=== PATIENT | female | born 1930 | race Caucasian/White ===

== ENCOUNTER 2017-05-22 05:33 | Emergency (ER) | payer OTHER, MEDICARE ==
[2017-05-22 05:58] LABS: Absolute Lymphocytes (CBC) 3.5 K/uL (0.7-4.9); Absolute Monocytes 0.7 K/uL (0.1-1.3); Absolute Neutrophil 5.4 K/uL (1.8-8.0); Basophils % 0.4 % (0-1.3); Eosinophils % 1.9 % (0-4.4); Lymphocytes % 35.6 % (15.3-44.8); MCH 29.1 pg (27.0-35.0); MPV 8.1 fL (7.6-11.3); Monocytes % 7.4 % (3.3-12.3); RBC Red Blood Cell Count 4.07 M/uL (3.86-4.86)
[2017-05-22 06:02] LABS: Protime INR 0.92
[2017-05-22] MEDS ORDERED: IPRATROPIUM BROM 0.5MG/2.5ML ONE (06:06)
[2017-05-22] MEDS ORDERED: predniSONE 20 MG TAB ONE (06:06)
[2017-05-22] MEDS ORDERED: ALBUTEROL 2.5 MG/3 ML NEB SOL ONE (06:06)
[2017-05-22 06:07] LABS: Bicarbonate 33 mEq/L (21-31); Glucose Level 222 mg/dL (65-120); Potassium 4.2 mEq/L (3.6-5.0); Sodium Level 139 mEq/L (135-145)
[2017-05-22 06:13] LABS: ALT/SGPT 15 IU/L (10-60); AST/SGOT 25 IU/L (10-42); Albumin 3.6 g/dL (3.2-5.5); Alkaline Phosphatase 32 IU/L (42-121); BUN Blood Urea Nitrogen 24 mg/dL (6-20); Bilirubin Direct < 0.1 mg/dL (0-0.2); Bilirubin Total 0.4 mg/dL (0.3-1.2); Creatine Phosphokinase 53 IU/L (22-269); Protein, Total 6.3 g/dL (6.0-8.3)
[2017-05-22 06:16] LABS: CKMB Creatine Kinase MB 4.4 ng/ml (0.3-4.0)
--- NOTE | 2017-05-22 06:37 | ER ---
Nurse's Notes [facility] Name: Jeannie Whitlock Age: 87 yrs Sex: Female : 1930 Arrival Date: 05/22/2017 Time: 05:36 Bed 6 Private MD: Diagnosis: Chronic obstructive pulmonary disease with (acute) exacerbation Presentation: 05/22 05:39 Presenting complaint: Patient states: I woke up feeling hot and nauseous and am having tl2 a hard time breathing. Pt is unable to speak in full sentences. Denies pain. Transition of care: patient was not received from another setting of care. Onset of symptoms was May 22, 2017 at 05:00. Care prior to arrival: None. 05:39 Method Of Arrival: EMS: [facility] tl2 05:39 Acuity: IRENE 3 tl2 Triage Assessment: 05:41 General: Appears in no apparent distress. uncomfortable, Behavior is calm, cooperative, tl2 appropriate for age, Reports feeling ill for. Pain: Denies pain. Neuro: Level of Consciousness is awake, alert, obeys commands, Oriented to person, place, time, situation. Cardiovascular: Denies chest pain. Respiratory: Reports shortness of breath labored breathing Breath sounds with wheezes bilaterally. Onset: The symptoms/episode began/occurred this morning, the patient has moderate shortness of breath. GI: Reports nausea. : Reports taking Bactrim for UTI. Derm: Skin is pink, warm \T\ dry. Historical: - Allergies: 05:41 Codeine; tl2 05:41 CT Dye; tl2 05:41 Demerol; tl2 05:41 Iodine; tl2 05:41 Morphine; tl2 05:41 PENICILLINS; tl2 05:41 Tape; tl2 - Home Meds: 05:41 CoQ-10 100mg Oral [Active]; cranberry+C 4200mg BID [Active]; furosemide 40 mg Oral tab tl2 once daily [Active]; Humalog Mix 75-25 Sub-Q [Active]; krill oil 1000mg Oral [Active]; Ocuvite Oral [Active]; potassium chloride 10 mEq Oral cpER 1 cap once daily [Active]; prednisone 5 mg Oral tab once daily [Active]; Pro Air [Active]; Probiotic 10 billion cell Oral cap [Active]; sertraline 50 mg Oral tab 1 tab once daily [Active]; Spiriva [Active]; - PMHx: 05:41 Cancer, Lung; CHF; Diabetes - IDDM; High Cholesterol; Hypertension; tl2 - Immunization history:: Adult Immunizations up to date. - Social history:: Smoking status: Patient/guardian denies using tobacco. - Family history:: not pertinent. Screenin:43 Abuse screen: Denies threats or abuse. Nutritional screening: No deficits noted. tl2 Tuberculosis screening: No symptoms or risk factors identified. Fall Risk Secondary diagnosis (15 points). Assessment: 05:44 General: see triage assessment. tl2 05:44 Respiratory: Airway is patent Respiratory effort is even, labored, Respiratory pattern tl2 is tachypnea Breath sounds with wheezes bilaterally. the patient has moderate shortness of breath. 06:25 Reassessment: Patient appears in no apparent distress at this time. Patient and/or tl2 family updated on plan of care and expected duration. Pain level reassessed. Patient is alert, oriented x 3, equal unlabored respirations, skin warm/dry/pink. Pt states her breathing has improved. Awaiting lab results Patient states feeling better. 06:26 Cardiovascular: Rhythm is regular. tl2 07:54 Reassessment: Pt discharged home with daughter. ph Vital Signs: 05:41 BP 131 / 61; Pulse 92; Resp 24; Temp 98.6(O); Pulse Ox 96% on 3 lpm NC; Weight 70.76 tl2 kg; Height 5 ft. 4 in. (162.56 cm); Pain 0/10; 06:25 BP 152 / 69; Pulse 89; Resp 22; Pulse Ox 100% on 3 lpm NC; tl2 06:50 BP 118 / 40; Pulse 100; Resp 20; Pulse Ox 98% on 3 lpm NC; tl2 07:55 BP 124 / 58; Pulse 87; Resp 18; Temp 97.9; Pulse Ox 98% on 3 lpm NC; ph 05:41 Body Mass Index 26.78 (70.76 kg, 162.56 cm) tl2 ED Course: 05:36 Patient arrived in ED. em1 05:39 Cristy Field MD is Attending Physician. ma2 05:41 Triage completed. tl2 05:41 Arm band placed on right wrist. tl2 05:43 Patient has correct armband on for positive identification. Placed in gown. Bed in low tl2 position. Call light in reach. Side rails up X2. 05:48 Adolfo Israel, RN is Primary Nurse. ao 05:52 Inserted saline lock: 22 gauge in left forearm, using aseptic technique. Blood tl2 collected. placed by HIREN Higginbotham. 05:58 X-ray completed. Portable x-ray completed in exam room. Patient tolerated procedure jw2 well. 05:59 XRAY Chest (1 view) In Process Unspecified. EDMS 06:54 No provider procedures requiring assistance completed. tl2 07:54 IV discontinued, intact, bleeding controlled, No redness/swelling at site. Pressure ph dressing applied. Administered Medications: 05:51 Not Given (Patient Refused; Pt stated she only wants 20 mg): predniSONE 40 mg PO once tl2 05:51 Drug: DuoNeb (3:1) (2.5 mg - 0.5 mg) 3 ml Route: Nebulizer; tl2 06:54 Follow up: Response: No adverse reaction; Marked relief of symptoms tl2 06:25 Drug: predniSONE 20 mg Route: PO; tl2 06:54 Follow up: Response: No adverse reaction tl2 Point of Care Testing: Blood Glucose: 05:48 Blood Glucose: 226 mg/dL; ao Ranges: Outcome: 06:37 Discharge ordered by . ma2 06:54 Discharged to home with family. tl2 06:54 Condition: stable 06:54 Discharge instructions given to patient, Instructed on discharge instructions, follow up and referral plans. medication usage, Demonstrated understanding of instructions, follow-up care, medications, Prescriptions given X 2. 07:56 Patient left the ED. ph Signatures: Dispatcher [employer] Shant Keen em1 Martita Mcnally, HIREN RN ph Adolfo Israel, Tessa Lara RN jw2 Kimberly Blackwell RN RN tl2 Cristy Field MD MD ma2
--- NOTE | 2017-05-22 06:38 | EDPHYS ---
Physician Documentation [facility] Name: Jeannie Whitlock Age: 87 yrs Sex: Female : 1930 Arrival Date: 05/22/2017 Time: 05:36 Bed 6 Private MD: ED Physician Cristy Field HPI: 05/22 05:42 This 87 yrs old Female presents to ER via EMS with complaints of Breathing ma2 Difficulty. 05:42 The patient has shortness of breath that woke him/her from sleep. Onset: The ma2 symptoms/episode began/occurred gradually, 1 hour(s) ago. Duration: The symptoms are intermittent. Associated signs and symptoms: Pertinent positives: nausea, Pertinent negatives: chest pain, non-productive cough, diaphoresis, dizziness, fever, hemoptysis, loss of consciousness, numbness in extremities, visual changes, vomiting. Severity of symptoms: At their worst the symptoms were mild. The patient has experienced similar episodes in the past. hx of CHF ln lasix and COPD here with SOB x 1 hour she has no other symptom . Historical: - Allergies: 05:41 Codeine; tl2 05:41 CT Dye; tl2 05:41 Demerol; tl2 05:41 Iodine; tl2 05:41 Morphine; tl2 05:41 PENICILLINS; tl2 05:41 Tape; tl2 - Home Meds: 05:41 CoQ-10 100mg Oral [Active]; cranberry+C 4200mg BID [Active]; furosemide 40 mg Oral tab tl2 once daily [Active]; Humalog Mix 75-25 Sub-Q [Active]; krill oil 1000mg Oral [Active]; Ocuvite Oral [Active]; potassium chloride 10 mEq Oral cpER 1 cap once daily [Active]; prednisone 5 mg Oral tab once daily [Active]; Pro Air [Active]; Probiotic 10 billion cell Oral cap [Active]; sertraline 50 mg Oral tab 1 tab once daily [Active]; Spiriva [Active]; - PMHx: 05:41 Cancer, Lung; CHF; Diabetes - IDDM; High Cholesterol; Hypertension; tl2 - Immunization history:: Adult Immunizations up to date. - Social history:: Smoking status: Patient/guardian denies using tobacco. - Family history:: not pertinent. ROS: 05:42 Constitutional: Negative for fever, chills, and weight loss, Eyes: Negative for injury, ma2 pain, redness, and discharge, ENT: Negative for injury, pain, and discharge, Neck: Negative for injury, pain, and swelling, Cardiovascular: Negative for chest pain, palpitations, and edema, Abdomen/GI: Negative for abdominal pain, nausea, diarrhea, and constipation, Back: Negative for injury and pain, : Negative for injury, bleeding, discharge, and swelling, MS/Extremity: Negative for injury and deformity, Skin: Negative for injury, rash, and discoloration, Neuro: Negative for headache, weakness, numbness, tingling, and seizure, Psych: Negative for depression, anxiety, suicide ideation, homicidal ideation, and hallucinations, Allergy/Immunology: Negative for hives, rash, and allergies, Endocrine: Negative for neck swelling, polydipsia, polyuria, polyphagia, and marked weight changes, Hematologic/Lymphatic: Negative for swollen nodes, abnormal bleeding, and unusual bruising. 05:42 Respiratory: Positive for wheezing, Negative for cough, orthopnea, pleurisy, shortness of breath, sputum production. Exam: 05:42 Constitutional: This is a well developed, well nourished patient who is awake, alert, ma2 and in no acute distress. Head/Face: Normocephalic, atraumatic. Eyes: Pupils equal round and reactive to light, extra-ocular motions intact. Lids and lashes normal. Conjunctiva and sclera are non-icteric and not injected. Cornea within normal limits. Periorbital areas with no swelling, redness, or edema. ENT: Nares patent. No nasal discharge, no septal abnormalities noted. Tympanic membranes are normal and external auditory canals are clear. Oropharynx with no redness, swelling, or masses, exudates, or evidence of obstruction, uvula midline. Mucous membranes moist. Neck: Trachea midline, no thyromegaly or masses palpated, and no cervical lymphadenopathy. Supple, full range of motion without nuchal rigidity, or vertebral point tenderness. No Meningismus. Chest/axilla: Normal chest wall appearance and motion. Nontender with no deformity. No lesions are appreciated. Cardiovascular: Regular rate and rhythm with a normal S1 and S2. No gallops, murmurs, or rubs. Normal PMI, no JVD. No pulse deficits. Abdomen/GI: Soft, non-tender, with normal bowel sounds. No distension or tympany. No guarding or rebound. No evidence of tenderness throughout. Back: No spinal tenderness. No costovertebral tenderness. Full range of motion. Skin: Warm, dry with normal turgor. Normal color with no rashes, no lesions, and no evidence of cellulitis. MS/ Extremity: Pulses equal, no cyanosis. Neurovascular intact. Full, normal range of motion. Neuro: Awake and alert, GCS 15, oriented to person, place, time, and situation. Cranial nerves II-XII grossly intact. Motor strength 5/5 in all extremities. Sensory grossly intact. Cerebellar exam normal. Normal gait. 05:42 Respiratory: Exam negative for the patient does not display signs of respiratory distress, Respirations: normal, Breath sounds: wheezing: expiratory that is mild, is heard diffusely. Vital Signs: 05:41 BP 131 / 61; Pulse 92; Resp 24; Temp 98.6(O); Pulse Ox 96% on 3 lpm NC; Weight 70.76 tl2 kg; Height 5 ft. 4 in. (162.56 cm); Pain 0/10; 06:25 BP 152 / 69; Pulse 89; Resp 22; Pulse Ox 100% on 3 lpm NC; tl2 06:50 BP 118 / 40; Pulse 100; Resp 20; Pulse Ox 98% on 3 lpm NC; tl2 07:55 BP 124 / 58; Pulse 87; Resp 18; Temp 97.9; Pulse Ox 98% on 3 lpm NC; ph 05:41 Body Mass Index 26.78 (70.76 kg, 162.56 cm) tl2 MDM: 05:39 Patient medically screened. ma2 05:42 Differential diagnosis: Anxiety Reaction asthma, Bronchitis CHF exacerbation, Chronic ma2 Obstructive Pulmonary Disease pneumonia, reactive airway disease. Antibiotic administration: Not indicated. The patient's Wells Deep Vein Thrombosis Score was calculated as follows: No Risks (0 Pts). The patient's pulmonary embolism risk score was calculated as follows: No Risks (0 Pts). 06:34 Data reviewed: vital signs, nurses notes, EMS record, care home records, lab test ma2 result(s), EKG, radiologic studies. Data interpreted: barrel drum cutter:. Test interpretation: by ED physician or midlevel provider: ECG, plain radiologic studies. Counseling: I had a detailed discussion with the patient and/or guardian regarding: the historical points, exam findings, and any diagnostic results supporting the discharge/admit diagnosis, the presence of at least one elevated blood pressure reading (>120/80) during this emergency department visit, the need for outpatient follow up. ED course: given dual nebs, prednison, her lab are non critical and EKG unchanged . 05/22 05:40 Order name: Basic Metabolic Panel; Complete Time: 06:20 ma2 05/22 05:40 Order name: BNP ma2 05/22 05:40 Order name: CBC with Diff; Complete Time: 06:20 ma2 05/22 05:40 Order name: Ckmb; Complete Time: 06:20 ma2 05/22 05:40 Order name: CPK; Complete Time: 06:20 ma2 05/22 05:40 Order name: LFT's; Complete Time: 06:20 ma2 05/22 05:40 Order name: Magnesium; Complete Time: 06:20 ma2 05/22 05:40 Order name: PT-INR; Complete Time: 06:20 ma2 05/22 05:40 Order name: Ptt, Activated; Complete Time: 06:20 ma2 05/22 05:40 Order name: Troponin (emerg Dept Use Only); Complete Time: 06:20 ma2 05/22 05:40 Order name: XRAY Chest (1 view) 2 05/22 05:40 Order name: EKG; Complete Time: 05:40 ma2 05/22 05:40 Order name: Cardiac monitoring; Complete Time: 05:45 ma2 05/22 05:40 Order name: EKG - Nurse/Tech; Complete Time: 05:52 ma2 05/22 05:40 Order name: IV Saline Lock; Complete Time: 05:52 ma2 05/22 05:40 Order name: Labs collected and sent; Complete Time: 05:52 ma2 05/22 05:40 Order name: O2 Per Protocol; Complete Time: 05:45 ma2 05/22 05:40 Order name: O2 Sat Monitoring; Complete Time: 05:45 ma2 05/22 05:41 Order name: O2: 3 L via NC; Complete Time: 05:45 ma2 Administered Medications: 05:51 Not Given (Patient Refused; Pt stated she only wants 20 mg): predniSONE 40 mg PO once tl2 05:51 Drug: DuoNeb (3:1) (2.5 mg - 0.5 mg) 3 ml Route: Nebulizer; tl2 06:54 Follow up: Response: No adverse reaction; Marked relief of symptoms tl2 06:25 Drug: predniSONE 20 mg Route: PO; tl2 06:54 Follow up: Response: No adverse reaction tl2 Point of Care Testing: Blood Glucose: 05:48 Blood Glucose: 226 mg/dL; ao Ranges: Critical Glucose Levels:Adult <50 mg/dl or >400 mg/dl <40 mg/dl or >180 mg/dl Disposition: 05/22/17 06:37 Discharged to Home. Impression: Chronic obstructive pulmonary disease with (acute) exacerbation. - Condition is Stable. - Discharge Instructions: Chronic Obstructive Pulmonary Disease. - Prescriptions for Zithromax Z- Vick 250 mg Oral Tablet - take 1 tablet by ORAL route as directed for 5 days Day 1 - take two (2) tablets one time. Day 2, 3, 4 , 5 take one (1) tablet once daily.; 6 tablet. Medrol (Vick) 4 mg Oral Tablets, Dose Pack - take 1 tablet by ORAL route as directed - follow package instructions; 1 packet. - Medication Reconciliation Form, Thank You Letter, Antibiotic Education, Prescription Opioid Use form. - Follow up: Private Physician; When: 2 - 3 days; Reason: Continuance of care. - Problem is chronic. - Symptoms have improved. Signatures: Dispatcher [employer] Martita Lopez RN RN Kimberly Blackwell RN RN tl2 Cristy Field MD MD de2
[2017-05-22 08:16] VITALS: BP 124/58; TEMP 97.9; O2SAT 98
--- NOTE | 2017-05-22 08:39 | RAD REPORT ---
EXAM DESCRIPTION: Hector Single View05/22/2017 5:59 am CLINICAL HISTORY: Chest pain COMPARISON: none FINDINGS: A 21 millimeter medial right upper lobe opacities without obvious change from the prior ex am. The remainder of the lungs appear clear of acute infiltrate. The heart is normal size. Postsurgical changes involve the chest. Pacemaker leads are in place IMPRESSION: A 21 millimeter medial right upper lobe opacity without obvious change from the prior e xam. Continued serial chest x-rays is recommended to assess stability
--- NOTE | 2017-05-22 10:20 | EKG ---
Test Date: 2017-05-22 Test Time: 05:45:54 Regulated Program Manager: MARY MEASUREMENT RESULTS: Intervals: Rate: 83 MS: 160 QRSD: 138 QT: 418 QTc: 491 [place]: P: 60 MS: 160 QRS: 12 T: 195 INTERPRETIVE STATEMENTS: Sinus rhythm with premature atrial complexes and intermittent atrial pacing Left bundle branch block Abnormal ECG Compared to ECG 07/03/2016 10:25:53 Atrial premature complex(es) now present Atrial pacing is now present Electronically Signed On 05-22-17 10:19:47 CDT by Franklin Nascimento
== END 2017-05-22 07:56 | disposition home or self-care (01) ==
LOC: ER 05:33
DX: J44.1 Chronic obstructive pulmonary disease with (acute) exacerbation (principal); I10 Essential (primary) hypertension; E11.9 Type 2 diabetes mellitus without complications; I50.9 Heart failure, unspecified; E78.00 Pure hypercholesterolemia, unspecified; Z85.118 Personal history of other malignant neoplasm of bronchus and lung; Z79.4 Long term (current) use of insulin; Z88.0 Allergy status to penicillin; Z88.5 Allergy status to narcotic agent; Z88.8 Allergy status to other drugs, medicaments and biological substances; Z91.041 Radiographic dye allergy status; Z91.048 Other nonmedicinal substance allergy status
CPT/HCPCS: 36415; 71045; 80048; 80076; 82550; 82553; 82962; 83735; 83880; 84484; 85025; 85610; 85730; 93005; 94640; 99284; J7512

== ENCOUNTER 2017-09-14 22:05 | Emergency (ER) | payer OTHER, MEDICARE ==
[2017-09-14 23:36] LABS: Absolute Lymphocytes (CBC) 2.1 K/uL (0.7-4.9); Absolute Monocytes 0.8 K/uL (0.1-1.3); Absolute Neutrophil 5.4 K/uL (1.8-8.0); Eosinophils % 2.2 % (0-4.4); Hematocrit 36.4 % (36.0-45.0); Lymphocytes % 24.2 % (15.3-44.8); MCH 30.3 pg (27.0-35.0); MCV 91.5 fL (80-100); MPV 8.1 fL (7.6-11.3); Monocytes % 9.4 % (3.3-12.3); RBC Red Blood Cell Count 3.98 M/uL (3.86-4.86)
[2017-09-14 23:37] LABS: Protime INR 1.02
[2017-09-14] MEDS ORDERED: METHYLPREDNISOLONE 125 MG INJ ONE (23:42)
[2017-09-14] MEDS ORDERED: DIPHENHYDRAMINE 50 MG/ML VIAL ONE (23:43)
[2017-09-14 23:55] LABS: Albumin 3.3 g/dL (3.4-5.0); Bilirubin Total 0.4 mg/dL (0.2-1.0); Magnesium 2.2 mg/dL (1.8-2.4); Potassium 4.2 mmol/L (3.5-5.1); Protein, Total 6.4 g/dL (6.4-8.2)
[2017-09-15] MEDS ORDERED: ONDANSETRON 4 MG/2 ML VIAL ONE (00:54)
[2017-09-15] MEDS ORDERED: LABETALOL HCL 100 MG/20 ML ONE (01:52)
[2017-09-15] MEDS ORDERED: LABETALOL 20 MG/4ML SYRINGE IV ONE (01:53)
--- NOTE | 2017-09-15 01:53 | EDPHYS ---
Physician Documentation [facility] Name: Jeannie Whitlock Age: 87 yrs Sex: Female : 1930 Arrival Date: 09/14/2017 Time: 22:11 Bed 15 Private MD: ED Physician Cong Torres HPI: 09/14 23:11 This 87 yrs old Female presents to ER via Wheelchair with complaints of ps1 Breathing Difficulty, Rectal Bleeding, Cough. 23:11 patient has history of COPD with recent productive cough, patient of Dr. Myers. ps1 Recently started on theophylline for symptoms. Additionally complaining of urinary symptoms and left flank pain and BRBPR. She has seen Dr. Alvarado before in the past however she cannot have a colonoscopy 2/2 her underlying medical conditions. Pain rated as moderate and intermittent. Multiple allergies. She states that she has an allergy to iodine but she has had CT scans and an angiography before in the past without issue. . Historical: - Allergies: 22:38 Codeine; bb 22:38 CT Dye; bb 22:38 Demerol; bb 22:38 Iodine; bb 22:38 Morphine; bb 22:38 PENICILLINS; bb 22:38 Tape; bb - Home Meds: 22:38 ipratropium bromide 0.02 % inhalation soln 1.25 mL 4 times per day [Active]; alprazolam bb 0.25 mg Oral tab 1 tab twice a day [Active]; theophylline 200 mg Oral Tb12 1 tab daily [Active]; Brovana 15 mcg/2 mL inhalation nebu daily [Active]; furosemide 20 mg Oral tab 1 tab once daily [Active]; Probiotic oral oral [Active]; CoQ-10 100 mg oral cap daily [Active]; bisoprolol fumarate 5 mg oral tab 1 tab once daily [Active]; sertraline 50 mg oral tab [Active]; Humalog Mix 75-25 100 unit/mL (75-25) Sub-Q susp [Active]; krill oil oral 1000 mg daily oral [Active]; cranberry oral 200 mg daily oral [Active]; ProAir HFA 90 mcg/actuation inhalation HFAA 2 puffs every 6 hours [Active]; Spiriva with HandiHaler 18 mcg inhalation CpDv 1 cap once daily [Active]; prednisone 10 mg Oral tab once daily [Active]; ovuvite [Active]; vit B12 100 mcg daily [Active]; Nasacort 55 mcg Nasal spra 2 spray daily [Active]; - PMHx: 22:38 Cancer, Lung; CHF; Diabetes - IDDM; High Cholesterol; Hypertension; bb - Immunization history:: Adult Immunizations up to date. - Social history:: Smoking status: Patient/guardian denies using tobacco, but has a distant history of tobacco abuse. - Ebola Screening: : No symptoms or risks identified at this time. ROS: 23:11 Constitutional: Negative for fever, chills, and weight loss, Eyes: Negative for injury, ps1 pain, redness, and discharge, Cardiovascular: Negative for chest pain, palpitations, and edema, Respiratory: Negative for shortness of breath, cough, wheezing, and pleuritic chest pain. 23:11 Abdomen/GI: Positive for abdominal pain, rectal bleeding. 23:11 : Positive for urinary symptoms. ps1 Exam: 23:11 Constitutional: This is a well developed, well nourished patient who is awake, alert, ps1 and in no acute distress. Head/Face: Normocephalic, atraumatic. Eyes: Pupils equal round and reactive to light, extra-ocular motions intact. Lids and lashes normal. Conjunctiva and sclera are non-icteric and not injected. ENT: Nares patent. No nasal discharge, no septal abnormalities noted. Tympanic membranes are normal and external auditory canals are clear. Oropharynx with no redness, swelling, or masses, exudates, or evidence of obstruction, uvula midline. Mucous membranes moist. Cardiovascular: Regular rate and rhythm. No gallops, murmurs, or rubs. Normal PMI, no JVD. No pulse deficits. Abdomen/GI: Soft, non-tender, with normal bowel sounds. No distension or tympany. No guarding or rebound. No evidence of tenderness throughout. Skin: Warm, dry with normal turgor. Normal color with no rashes, no lesions, and no evidence of cellulitis. MS/ Extremity: Pulses equal, no cyanosis. Neurovascular intact. Full, normal range of motion. Neuro: Awake and alert, GCS 15, oriented to person, place, time, and situation. Cranial nerves II-XII grossly intact. Sensory grossly intact. Psych: Awake, alert, with orientation to person, place and time. Behavior, mood, and affect are within normal limits. 23:11 Respiratory: the patient does not display signs of respiratory distress, Respirations: normal, Breath sounds: are clear throughout. 23:11 : Bladder: tenderness. Vital Signs: 22:38 BP 136 / 87; Pulse 98; Resp 36 S; Pulse Ox 89% on 3 lpm NC; Weight 73.03 kg (R); Height bb 5 ft. 4 in. (162.56 cm) (R); Pain 7/10; 22:45 BP 141 / 59; Pulse 74; Resp 16; Pulse Ox 100% ; bp 23:44 BP 170 / 84; Pulse 82; Resp 16; Pulse Ox 99% ; bp 09/15 00:55 BP 176 / 82; Pulse 76; Resp 14; Pulse Ox 100% ; bp 01:58 BP 147 / 75; Pulse 77; Resp 14; Pulse Ox 99% ; bp 02:15 BP 141 / 60; Pulse 78; Resp 22; Pulse Ox 97% ; bp 09/14 22:38 Body Mass Index 27.64 (73.03 kg, 162.56 cm) bb MDM: 09/14 23:17 Patient medically screened. 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 Started labetolol for BP control. Goal 120 systolic. . 09/14 23:06 Order name: CBC with Diff; Complete Time: 23:44 ps1 09/14 23:06 Order name: Magnesium; Complete Time: 23:59 ps1 09/14 23:06 Order name: NT PRO-BNP; Complete Time: 23:59 ps1 09/14 23:06 Order name: PT-INR; Complete Time: 23:44 ps1 09/14 23:06 Order name: Troponin (emerg Dept Use Only); Complete Time: 23:55 ps1 09/14 23:06 Order name: CMP; Complete Time: 23:59 ps1 09/14 23:06 Order name: XRAY Chest (1 view) ps1 09/15 00:07 Order name: Abdomen EDMS 09/15 01:41 Order name: Type And Screen ps1 09/15 02:35 Order name: ABO/RH no charge; Complete Time: 02:37 EDMS 09/14 23:06 Order name: EKG; Complete Time: 23:07 ps1 09/14 23:06 Order name: Cardiac monitoring; Complete Time: 23:28 ps1 09/14 23:06 Order name: EKG - Nurse/Tech; Complete Time: 00:53 ps1 09/14 23:06 Order name: IV Saline Lock; Complete Time: 23:28 ps1 09/14 23:06 Order name: Labs collected and sent; Complete Time: 23:28 ps1 09/14 23:06 Order name: O2 Per Protocol; Complete Time: 23:28 ps1 09/14 23:06 Order name: O2 Sat Monitoring; Complete Time: 23:28 ps1 09/15 01:41 Order name: NPO; Complete Time: 02:06 ps1 Administered Medications: 09/14 23:30 Drug: Benadryl 50 mg Route: IVP; Site: right forearm; bp 09/15 00:30 Follow up: Response: No adverse reaction bp 09/14 23:30 Drug: SOLU-Medrol 125 mg Route: IVP; Site: right forearm; bp 09/15 00:30 Follow up: Response: No adverse reaction bp 00:54 Drug: Zofran 4 mg Route: IVP; Site: right forearm; bp 01:30 Follow up: Response: Nausea is decreased bp 01:50 Drug: Labetalol 20 mg Route: IVP; Infused Over: 2 mins; Site: right hand; bp 02:06 Follow up: Response: Blood pressure is lowered bp Disposition: 01:50 Critical Care:. ps1 Disposition: 09/15/17 01:53 Transfer ordered to [facility]. Diagnosis are AAA endograft leak, GI bleeding. - Reason for transfer: Higher level of care. - Accepting physician is Eduardou. - Condition is Critical. - Problem is new. - Symptoms are unchanged. Critical care time excluding procedures: 01:50 Critical care time: Bedside Care: 30 minutes, Consultation: 10 minutes. Total time: 40 ps1 minutes Signatures: Dispatcher [employer] Sarah Oneil, RN RN Avinash Robles, RN RN Cong Sarabia MD MD ps1 Corrections: (The following items were deleted from the chart) 00:07 09/14 23:07 Abdomen Pelvis W/Wo Con+CT.RAD.BRZ ordered. CARMEN MORALES 09/15 01:59 01:53 09/15/2017 01:53 Transfer ordered to [facility]. ps1 Diagnosis is AAA endograft leak; GI bleeding. Reason for transfer: Higher level of care. Accepting physician is Romario. Condition is Critical. Problem is new. Symptoms are unchanged. ps1 03:03 01:59 09/15/2017 01:53 Transfer ordered to [facility]. bp Diagnosis is AAA endograft leak; GI bleeding. Reason for transfer: Higher level of care. Accepting physician is Jonas. Condition is Critical. Problem is new. Symptoms are unchanged. ps1
--- NOTE | 2017-09-15 01:53 | ER ---
Nurse's Notes [facility] Name: Jeannie Whitlock Age: 87 yrs Sex: Female : 1930 Arrival Date: 09/14/2017 Time: 22:11 Bed 15 Private MD: Diagnosis: AAA endograft leak;GI bleeding Presentation: 09/14 22:21 Presenting complaint: Patient states: she is having difficulty breathing and she is bb having rectal bleeding which started an hour ago. Transition of care: patient was not received from another setting of care. Onset of symptoms was September 14, 2017. Risk Assessment: Do you want to hurt yourself or someone else? Patient reports no desire to harm self or others. Initial Sepsis Screen: Does the patient meet any 2 criteria? RR > 20 per min. HR > 90 bpm. Yes Does the patient have a suspected source of infection? Yes: Productive cough/pneumonia. Care prior to arrival: None. 22:21 Method Of Arrival: Wheelchair bb 22:21 Acuity: IRENE 2 bb Triage Assessment: 22:30 General: Appears distressed, comfortable, obese, Behavior is calm, cooperative, bp appropriate for age. Respiratory: Reports shortness of breath cough that is Onset: The symptoms/episode began/occurred today, the patient has mild shortness of breath. Historical: - Allergies: 22:38 Codeine; bb 22:38 CT Dye; bb 22:38 Demerol; bb 22:38 Iodine; bb 22:38 Morphine; bb 22:38 PENICILLINS; bb 22:38 Tape; bb - Home Meds: 22:38 ipratropium bromide 0.02 % inhalation soln 1.25 mL 4 times per day [Active]; alprazolam bb 0.25 mg Oral tab 1 tab twice a day [Active]; theophylline 200 mg Oral Tb12 1 tab daily [Active]; Brovana 15 mcg/2 mL inhalation nebu daily [Active]; furosemide 20 mg Oral tab 1 tab once daily [Active]; Probiotic oral oral [Active]; CoQ-10 100 mg oral cap daily [Active]; bisoprolol fumarate 5 mg oral tab 1 tab once daily [Active]; sertraline 50 mg oral tab [Active]; Humalog Mix 75-25 100 unit/mL (75-25) Sub-Q susp [Active]; krill oil oral 1000 mg daily oral [Active]; cranberry oral 200 mg daily oral [Active]; ProAir HFA 90 mcg/actuation inhalation HFAA 2 puffs every 6 hours [Active]; Spiriva with HandiHaler 18 mcg inhalation CpDv 1 cap once daily [Active]; prednisone 10 mg Oral tab once daily [Active]; ovuvite [Active]; vit B12 100 mcg daily [Active]; Nasacort 55 mcg Nasal spra 2 spray daily [Active]; - PMHx: 22:38 Cancer, Lung; CHF; Diabetes - IDDM; High Cholesterol; Hypertension; bb - Immunization history:: Adult Immunizations up to date. - Social history:: Smoking status: Patient/guardian denies using tobacco, but has a distant history of tobacco abuse. - Ebola Screening: : No symptoms or risks identified at this time. Screenin:28 Abuse screen: Denies threats or abuse. Denies injuries from another. Nutritional bp screening: No deficits noted. Tuberculosis screening: No symptoms or risk factors identified. Fall Risk None identified. Assessment: 22:27 General: Appears in no apparent distress. comfortable, obese, Behavior is calm, bp cooperative, appropriate for age. Pain: Denies pain. Neuro: Level of Consciousness is awake, alert, obeys commands, Oriented to person, place, time, situation, Appropriate for age. Cardiovascular: Rhythm is sinus rhythm. Respiratory: Airway is patent Respiratory effort is even, labored, Respiratory pattern is regular, symmetrical, Breath sounds with crackles Breath sounds with wheezes. GI: No signs and/or symptoms were reported involving the gastrointestinal system. : No signs and/or symptoms were reported regarding the genitourinary system. EENT: No deficits noted. Derm: No deficits noted. No signs and/or symptoms reported regarding the dermatologic system. Musculoskeletal: Circulation, motion, and sensation intact. Range of motion: intact in all extremities. 22:45 Reassessment: MD AT B/S FOR EVAL. bp 09/15 00:54 Reassessment: PT RETURNED FROM CT, ALL CURRENT ORDERS COMPLETED. bp 02:00 Reassessment: CRITICAL FINDING, LEAKING AORTIC ANEURYSM, ON CT. TRANSFER IN PROCESS TO [facility]. 02:18 Reassessment: REPORT TO [facility] \T\ [facility]. TRANSPORT PENDING. bp 03:02 Reassessment: [facility] AT / FOR TRANSPORT. bp Vital Signs: 09/14 22:38 BP 136 / 87; Pulse 98; Resp 36 S; Pulse Ox 89% on 3 lpm NC; Weight 73.03 kg (R); Height bb 5 ft. 4 in. (162.56 cm) (R); Pain 7/10; 22:45 BP 141 / 59; Pulse 74; Resp 16; Pulse Ox 100% ; bp 23:44 BP 170 / 84; Pulse 82; Resp 16; Pulse Ox 99% ; bp 09/15 00:55 BP 176 / 82; Pulse 76; Resp 14; Pulse Ox 100% ; bp 01:58 BP 147 / 75; Pulse 77; Resp 14; Pulse Ox 99% ; bp 02:15 BP 141 / 60; Pulse 78; Resp 22; Pulse Ox 97% ; bp 09/14 22:38 Body Mass Index 27.64 (73.03 kg, 162.56 cm) bb ED Course: 09/14 22:11 Patient arrived in ED. es 22:13 Avinash Rios, RN is Primary Nurse. bp 22:23 Triage completed. bb 22:28 Patient has correct armband on for positive identification. Bed in low position. Call bp light in reach. Side rails up X2. Adult w/ patient. 22:30 Oxygen administration via nasal cannula \T\ 2L/min. bp 22:32 Cong Torres MD is Attending Physician. ps1 22:38 Arm band placed on Patient placed in an exam room, on oxygen, on pulse oximetry. Family bb accompanied patient. 23:20 Inserted saline lock: 22 gauge in right forearm, using aseptic technique. Blood bp collected. 23:33 X-ray completed. Portable x-ray completed in exam room. Patient tolerated procedure kw well. 23:34 XRAY Chest (1 view) In Process Unspecified. EDMS 08 00:37 Abdomen In Process Unspecified. EDMS 00:43 CT completed. Patient tolerated procedure well. Patient moved to CT via stretcher. Patient moved back from CT. 00:43 Note: FELT NAUSEOUS AFTER CT BUT DID NOT VOMIT. Notified Primary Nurse . 01:50 No provider procedures requiring assistance completed. Inserted saline lock: 22 gauge bp in right hand, using aseptic technique. Patient transferred, IV remains in place. Administered Medications: 09/14 23:30 Drug: Benadryl 50 mg Route: IVP; Site: right forearm; bp 09/15 00:30 Follow up: Response: No adverse reaction bp 09/14 23:30 Drug: SOLU-Medrol 125 mg Route: IVP; Site: right forearm; bp 09/15 00:30 Follow up: Response: No adverse reaction bp 00:54 Drug: Zofran 4 mg Route: IVP; Site: right forearm; bp 01:30 Follow up: Response: Nausea is decreased bp 01:50 Drug: Labetalol 20 mg Route: IVP; Infused Over: 2 mins; Site: right hand; bp 02:06 Follow up: Response: Blood pressure is lowered bp Outcome: 01:53 ER care complete, transfer ordered by . ps1 02:21 Condition: stable bp 02:21 Instructed on the need for transfer. 03:02 Transferred by ground EMS by private ambulance to [facility], Transfer form bp completed. 03:03 Patient left the ED. bp Signatures: Dispatcher [employer] EDClaudette Raymundo Ervin eh Ballard, Brenda, HIREN RN Edith Persaud Brian, RN RN bp Cong Torres MD MD ps1
[2017-09-15 03:17] VITALS: BP 141/60; O2SAT 97
--- NOTE | 2017-09-15 08:51 | RAD REPORT ---
EXAM DESCRIPTION: RAD - Chest Single View - 09/14/2017 11:34 pm CLINICAL HISTORY: COPD, shortness of breath COMPARISON: May 2017 TECHNIQUE: AP portable chest image was obtained 2329 hours . FINDINGS: Chronic interstitial lung disease is present similar to the comparison. No superimposed fa ilure, infiltrate or mass. Focal density medial right upper lung field seen on prior study is absent or less evident on the current study. Pacemaker defibrillator remains in place. Sternotomy wires are in place. Heart and vasculature are normal. No measurable pleural effusion and no pneumothorax. No ac winnie bone finding. No acute aortic findings suspected. IMPRESSION: Chronic interstitial lung disease similar to comparison. No significant interval change.
--- NOTE | 2017-09-15 09:03 | RAD REPORT ---
EXAM DESCRIPTION: CT - Abdomen Pelvis W Contrast - 09/15/2017 6:14 am CLINICAL HISTORY: Rectal bleeding, history of lung cancer, abdominal pain, hypertension, history of aneurysm repair, cholecystectomy and pacemaker placement. A preliminary written report was provided at the time of the study, and the report was reviewed prio r to final dictation. COMPARISON: Noncontrast CT chest and noncontrast CT abdomen and pelvis February 2017 TECHNIQUE: Biphasic, helical CT imaging of the abdomen and pelvis was performed following 100 ml non -ionic IV contrast. No oral contrast administered. All CT scans are performed using dose optimization technique as appropriate and may include automated exposure control or mA/KV adjustment according to patient size. FINDINGS: No suspicious findings in the lung bases. No pericardial thickening or effusion. The liver, spleen, and pancreas show no suspicious findings. Gallbladder is absent. No biliary tree d ilatation. Symmetric renal function is seen with no hydronephrosis or suspicious renal mass. No pyelonephritis o r acute renal parenchymal process. Mostly contracted urinary bladder shows no suspicious findings. Ca lcified uterus shows no new or suspicious finding. Ovaries are absent or atrophic. No adnexal mass. No dilated bowel loops or bowel wall thickening. Left-sided colonic diverticulosis is present without diverticulitis. No acute GI process identified. No finding seen to explain acute GI bleed. No free a ir, free fluid or inflammatory stranding. No hernia, mass or bulky lymphadenopathy. No adrenal abnor mality. Disc and bony degenerative changes are present. No acute or destructive bone process. The patient has a known very large abdominal aortic aneurysm previously treated with aortoiliac endov ascular graft. Aorta measures 8.3 cm AP x 7.8 cm TR. The aorta was approximately 7.2 x 7.5 cm in [facility]. This represents enlargement from February. No displaced calcifications. Endograft leak is present from the distal margin. There is swirled contrast within the lumen of the [place] dilated aorta. A le ak from the proximal aspect of the graft is suspected as well. No periaortic fluid or stranding. Ther e are no large or small bowel findings that would suggest aortoenteric fistula. A clean fat plane sep arates the aorta from the bowel loops. No retroperitoneal fluid or hematoma. IMPRESSION: Patient has relatively mild left-sided diverticulosis with no mass, diverticulitis or ot her evidence for an acute bowel process. No abnormality seen to explain history of bright red blood p er rectum. Patient has a very large 8 centimeter abdominal aortic aneurysm that has increased in size since 2017. Endograft leak is present at the distal aspect as well is probably at the proximal aspect. No periaortic fluid or stranding. No evidence for aortoenteric fistula.
--- NOTE | 2017-09-15 12:47 | EKG ---
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
== END 2017-09-15 03:03 | disposition short-term general hospital (02) ==
LOC: ER 22:05
DX: I71.4 Abdominal aortic aneurysm, without rupture (principal); J44.9 Chronic obstructive pulmonary disease, unspecified; Z87.891 Personal history of nicotine dependence; Z85.118 Personal history of other malignant neoplasm of bronchus and lung; Z91.041 Radiographic dye allergy status; Z88.5 Allergy status to narcotic agent; Z88.0 Allergy status to penicillin; Z88.8 Allergy status to other drugs, medicaments and biological substances; Z91.048 Other nonmedicinal substance allergy status; E11.9 Type 2 diabetes mellitus without complications; Z79.4 Long term (current) use of insulin; I11.0 Hypertensive heart disease with heart failure; I50.9 Heart failure, unspecified; E78.00 Pure hypercholesterolemia, unspecified; K92.2 Gastrointestinal hemorrhage, unspecified
CPT/HCPCS: 36415; 71045; 74177; 80053; 83735; 83880; 84484; 85025; 85610; 86850; 86900; 86901; 93005; J2405; J2930; Q9967; 99285

== ENCOUNTER 2017-09-29 10:55 | Inpatient (IN) | payer OTHER, MEDICARE ==
--- OUTSIDE RECORDS SUMMARY | 2017-09-29 11:12 | XMS REPORT | Continuity of Care Document ---
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, total system (<span ID="[id number] uot;>Confirmed</s frank>) CAD (<span Resolved 02/14/18 Problem 08/07/2014 [place] ID="[id number]"> 93 Medical Confirmed</span>) Center Cardiomyopathy Resolved 02/14/18 Problem 08/07/[address] COPD Resolved 02/14/18 Problem 08/07/[address] HTN (<span Resolved 02/14/18 Problem 08/07/2014 [place] ID="[id number]"> 93 Medical Confirmed</span>) Center Diabetes Resolved 02/14/18 Problem 08/07/[address] Medications Medication Details Route Status Patient Ordering Order Source Instructions Provider Date bisoprolol 5 mg 5 mg=1 tab, PO, Active [facility] oral tablet Daily, # 30 tab, 2014 Medical 0 Refill(s) [place] 12 HR ranolazine 500 mg=1 tab, Active [place] 500 MG Extended PO, BID, # 30 2015 Medical Release Tablet tab, 0 Refill(s) [place] pantoprazole 40 40 mg=1 tab, PO, Active [facility] [place] mg oral enteric Daily, # 30 tab, 2015 Medical coated tablet 0 Refill(s) [place] Insulin Glargine 25 unit, SUB-Q, Active [place] 100 UNT/ML QAM, # 10 mL, 3 2014 Medical Injectable Refill(s) [place] Solution [Lantus] Metformin 500 mg=1 tab, Active [place] hydrochloride PO, BID-Meals, # 2015 Medical 500 MG Oral 60 tab, 0 Center Tablet Refill(s) acetaminophen 650 mg=2 tab, Active [place] 325 mg oral PO, Q4H, PRN 2015 Medical tablet Pain 1-3/Temp > Center 100.4 F, # 50 tab, 0 Refill(s) Zofran 4 mg, 2 mL, Inactive [place] Route: IVP, Drug 2014 Medical form: INJ, ONCE, Center Dosing Weight 74.29, kg, Start date: 08/01/14 9:14:00, Stop date: 08/01/14 9:14:00Notes: (Same as: Zofran) MEDICATION WASTE Product Size: 4 mg Product Wasted: __0_ mg sodium phosphate 15 mmol, 5 mL, Inactive [place] + Sodium Route: IVPB, 2014 Medical Chloride 0.9% IV ONCE, Dosing Center 250 mL Weight 74.29, kg, Start date: 08/01/14 7:27:00, Stop date: 08/01/14 7:27:00 Insulin, Aspart, 6 unit, 0.06 mL, No Longer [facility] Human Route: SUB-Q, Active 2014 Medical Drug form: SOLN, Center TID-Before Meals, Dosing Weight 74.29, kg, Start date: 07/31/14 16:30:00, Stop date: 08/30/14 11:30:00Notes: Roll in palms of hands gently; Do not shake vigorously. (Same as: NovoLOG) "single patient use only" Stable for 28 days at room temperature. Expires in days from Da te Insulin, Aspart, 2 unit, 0.02 mL, No Longer [place] Human Route: SUB-Q, Active 2014 Medical Drug form: SOLN, Center TID-Before Meals, Dosing Weight 74.29, kg, PRN Blood Glucose Results, Start date: 07/31/14 14:09:00, Duration: 30 day, Stop date: 08/30/14 14:08:00Notes: Roll in palms of hands gently; Do not shake vigorously. (Same as: NovoLOG) "single patient use only" Stable for 28 days at room temperature. Expires in days from Da te Insulin Glargine 15 unit, 0.15 No Longer [place] mL, Route: Active 2014 Medical [facility], Drug Center form: INJ, Daily, Dosing Weight 74.29, kg, Start date: 07/31/14 14:09:00, Duration: 30 day, Stop date: 08/30/14 9:00:00Notes: Same as Lantus Solostar PEN Do not hold insulin without contacting prescriber "single patient use only" Stable for 28 days at room temperature. Expires in days from Da te Insulin, Aspart 16 unit, 0.16 Inactive [place] Protamine, Human mL, Route: 2014 [facility] 70 UNT/ML / SUB-Q, Drug Center Insulin, Aspart, form: SUSP, Human 30 UNT/ML Before Injectable Breakfast, Suspension Dosing Weight 74.29, kg, Start date: 07/31/14 11:48:00, Duration: 30 day, Stop date: 08/30/14 7:30:00Notes: (Same as: NovoLOG Mix 70/30) NS 1,000 mL 1,000 mL, Rate: No Longer [place] 30 ml/hr, Infuse Active 2014 Medical over: 33.3 hr, Center Route: IV, Dosing Weight 74.29 kg, Total Volume: 1,000, Start date: 07/31/14 9:02:00, Stop date: 08/30/14 9:01:00 NovoLOG 70/30 36 unit, 0.36 Inactive [place] mL, Route: 2014 [facility], Drug Center form: SUSP, Breakfast, Dosing Weight 74.29, kg, Start date: 07/31/14 8:00:00, Duration: 30 day, Stop date: 08/29/14 8:00:00Notes: (Same as: NovoLOG Mix 70/30) Calcium 3 gm, 30 mL, No Longer [place] Gluconate Route: IVPB, Active 2014 Medical PRN, Dosing Center Weight 74.29, kg, PRN Abnormal Lab Result, For NON-ICU Patients Only., Start date: 07/31/14 6:15:00, Duration: 30 day, Stop date: 08/30/14 6:14:00 sodium phosphate 30 mmol, 10 mL, No Longer [place] + Sodium Route: IVPB, Active 2014 Medical Chloride 0.9% IV PRN, Dosing Center 250 mL Weight 74.29, kg, PRN Abnormal Lab Result, For NON-ICU Patients Only., Start date: 07/31/14 6:15:00, Duration: 30 day, Stop date: 08/30/14 6:14:00 Magnesium 1 gm, 100 mL, No Longer [place] Sulfate Route: IVPB, Active 2014 Medical Drug form: INJ, Center PRN, Dosing Weight 74.29, kg, PRN Abnormal Lab Result, For NON-ICU Patients Only., Start date: 07/31/14 6:15:00, Duration: 30 day, Stop date: 08/30/14 6:14:00 Magnesium Oxide 800 mg, 2 tab, No Longer [place] Route: PO, Drug Active 2014 Medical form: TAB, PRN, Center Dosing Weight 74.29, kg, PRN Abnormal Lab Result, For NON-ICU Patients Only., Start date: 07/31/14 6:15:00, Duration: 30 day, Stop date: 08/30/14 6:14:00Notes: (Same as: Mag-Ox 400) Magnesium oxide [id number] elemental magnesium Dose=____mg magnesium oxide (___mg elemental magnesium) potassium 2 pkt, Route: No Longer [place] phosphate-sodium PO, Drug Form: Active 2014 Medical phosphate 250 PDR/REC, Dosing Center mg-278 mg-164 mg Weight 74.29, oral powder kg, PRN, PRN Abnormal Lab Result, For NON-ICU Patients Only, Start date: 07/31/14 6:15:00, Duration: 30 day, Stop date: 08/30/14 6:14:00Notes: (Same as: Neutra-Phos) Each 1.25 gm pkt has 250mg phosphorous. Mix w/2.5oz water and stir. potassium 15 mmol, 5 mL, No Longer [place] phosphate + Route: IVPB, Active 2014 Medical Sodium Chloride PRN, Dosing Center 0.9% IV 250 mL Weight 74.29, kg, PRN Abnormal Lab Result, For NON-ICU Patients Only., Start date: 07/31/14 6:15:00, Duration: 30 day, Stop date: 08/30/14 6:14:00Notes: (Same as: K Phosphate.) 1 mMol phoshate has 1.47 mEq potassium Infuse over 4 hours potassium 20 mEq, 1 tab, No Longer [place] chloride Route: PO, Drug Active 2014 Medical form: ERTAB, Center PRN, Dosing Weight 74.29, kg, PRN Abnormal Lab Result, For NON-ICU Patients Only, Start date: 07/31/14 6:15:00, Duration: 30 day, Stop date: 08/30/14 6:14:00Notes: (Same as: K-Dur 20) "Do Not Crush" With food and full glass of water ketOROLAC 15 15 mg, 1 mL, Inactive [place] mg/mL injectable Route: IV, Drug 2014 Medical solution form: INJ, ONCE, Center Dosing Weight 74.29, kg, Start date: 07/31/14 4:06:00, Stop date: 07/31/14 4:06:00Notes: (Same as:Toradol) IV bolus must be given >15 seconds. Give IM administration slowly and deeply into the muscle. Not for use > 4 days. remove patch 1 patch, Route: No Longer [place] TOP, Drug form: Active 2014 Medical ERFILM, Daily, Center Start date: 07/30/14 23:00:00, Duration: 30 day, Stop date: 08/28/14 23:00:00Notes: Remove from 11 pm to 9 am daily for 10 hour nitrate free period. (Verify Patient has not taken Viagra, Cialis or Levitra in last 24 hours; if taken, hold NTG and notify MD.) D5W 1/2NS 1,000 1,000 mL, Rate: No Longer [place] mL 60 ml/hr, Infuse Active 2014 Medical over: 16.7 hr, Center Route: IV, Dosing Weight 74.29 kg, Total Volume: 1,000, Start date: 07/30/14 18:10:00, Duration: 30 day, Stop date: 08/29/14 18:09:00 Ondansetron 0.8 4 mg, 2 mL, No Longer [place] MG/ML Oral Route: IV, Drug Active 2014 Medical Solution form: INJ, Q8H, [place] [facility] Dosing Weight 74.29, kg, PRN as needed for nausea/vomiting, Start date: 07/30/14 18:08:00, Duration: 30 day, Stop date: 08/29/14 18:07:00Notes: (Same as: Zofran) MEDICATION WASTE Product Size: 4 mg Product Wasted: _0_ mg Ondansetron 0.8 4 mg, 5 mL, Inactive [place] MG/ML Oral Route: PO, Drug 2014 Medical Solution form: SOLN, Q8H, [place] [[facility]] Dosing Weight 74.29, kg, PRN as needed for nausea/vomiting, Start date: 07/30/14 17:42:00, Duration: 30 day, Stop date: 08/29/14 17:41:00Notes: (Same as: Zofran) Flumazenil 0.2 mg, 2 mL, No Longer [facility] Route: IVP, Drug Active 2014 Medical form: INJ, PRN, Center Dosing Weight 74.29, kg, PRN Benzodiazepine Reversal, Initial dose, Start date: 07/30/14 12:53:00, Stop date: 07/31/14 12:00:00Notes: (Same as: Romazicon) Hydromorphone 0.2 mg, 0.1 mL, No Longer [facility] Route: IVP, Drug Active 2014 Medical form: INJ, Center Q5Min, Dosing Weight 74.29, kg, PRN Pain Score 7-10, Start date: 07/30/14 12:53:00, Duration: 2 doses or times, Stop date: 07/31/14 12:00:00Notes: Same as: Dilaudid Naloxone 0.04 mg, 0.1 mL, No Longer [facility] Route: IVP, Drug Active 2014 Medical form: INJ, Center Q2MIN, Dosing Weight 74.29, kg, PRN Narcotic Reversal, Start date: 07/30/14 12:53:00, Duration: 8 doses or times, Stop date: 07/31/14 12:20:00Notes: Same as Narcan Promethazine 12.5 mg, 0.5 mL, Inactive [facility] Route: IVPB, 2014 Medical Drug form: INJ, Center ONCE, Dosing Weight 74.29, kg, PRN Nausea & Vomiting, Start date: 07/30/14 12:53:00Notes: Do not give IV push. (Same as: Phenergan) Ondansetron 4 mg, 2 mL, Inactive [facility] Route: IVP, Drug 2014 Medical form: INJ, ONCE, Center Dosing Weight 74.29, kg, PRN Nausea & Vomiting, Start date: 07/30/14 12:53:00Notes: (Same as: Zofran) MEDICATION WASTE Product Size: 4 mg Product Wasted: ___ mg Vancomycin 6.67 1.5 gm, Route: Inactive [facility] MG/ML Injectable IVPB, Drug form: 2014 Medical Solution INJ, ONCE, Center Dosing Weight 74.29, kg, Start date: 07/30/14 9:17:00, Stop date: 07/30/14 9:17:00 Bisoprolol 5 mg, 1 tab, No Longer [place] Route: PO, Drug Active 2014 Medical form: TAB, Center Daily, Dosing Weight 74.29, kg, Start date: 07/30/14 9:00:00, Duration: 30 day, Stop date: 08/28/14 9:00:00Notes: (Same As: Zebeta) 24 HR 1 patch, Route: No Longer [facility] Nitroglycerin TOP, Drug Form: Active 2014 Medical 0.2 MG/HR ERFILM, Dosing Center Transdermal Weight 74.29, Patch kg, Daily, Start date: 07/30/14 9:00:00, Duration: 30 day, Stop date: 08/28/14 9:00:00Notes: Apply only once for up to 12 hours in a 24 hour period (12 hours on and 12 hours off.) (Same as:Nitro-Dur,Dep onit,Transderm Nitro) For topical use only. "Remove old patch before application of new patch" Prednisone 5 mg, 1 tab, No Longer [place] Route: PO, Drug Active 2014 Medical form: TAB, Center Daily, Dosing Weight 74.29, kg, Start date: 07/30/14 9:00:00, Duration: 30 day, Stop date: 08/28/14 9:00:00Notes: Take with food. Dextrose 50% 12.5 gm, Route: Inactive [place] Syringe IVP, Dosing 2014 Medical Weight 74.29, Center kg, ONCE, Start date: 07/30/14 7:19:00, Stop date: 07/30/14 7:19:00 Zofran 4 mg, 2 mL, Inactive [place] Route: IVP, Drug 2014 Medical form: INJ, ONCE, Center Dosing Weight 74.29, kg, Start date: 07/30/14 6:59:00, Stop date: 07/30/14 6:59:00Notes: (Same as: Zofran) MEDICATION WASTE Product Size: 4 mg Product Wasted: ___ mg PlasmaLyte A 1,000 mL, Rate: No Longer [place] PH-7.4 1,000 mL 50 ml/hr, Infuse Active 2014 Medical over: 20 hr, Center Route: IV, Dosing Weight 74.29 kg, Total Volume: 1,000, Start date: 07/30/14 0:00:00, Duration: 30 day, Stop date: 08/28/14 23:59:00 Acetylcysteine 600 mg, 3 mL, No Longer [facility] 200 MG/ML Route: PO, Drug Active 2014 Medical Inhalant form: SOLN, Center Solution Q12H, Dosing Weight 74.29, kg, give 6 doses, Start date: 07/29/14 21:00:00, Duration: 6 doses or times, Stop date: 08/01/14 9:00:00 NS 1,000 mL 1,000 mL, Rate: No Longer [facility] 60 ml/hr, Infuse Active 2014 Medical over: 16.7 hr, Center Route: IV, Dosing Weight 74.29 kg, Total Volume: 1,000, Start date: 07/29/14 20:27:00, Duration: 30 day, Stop date: 08/28/14 20:26:00 Ranexa 500 mg, 1 tab, No Longer [facility] Route: PO, Drug Active 2014 Medical form: TAB, BID, Center Dosing Weight 74.29, kg, Start date: 07/29/14 17:00:00, Duration: 30 day, Stop date: 08/28/14 9:00:00Notes: Same as Ranexa "Do Not Crush" Protonix 40 mg, 1 tab, No Longer [facility] Route: PO, Drug Active 2014 Medical form: ECTAB, Center Daily, Dosing Weight 74.29, kg, Start date: 07/29/14 9:00:00, Duration: 30 day, Stop date: 08/27/14 9:00:00Notes: Tablet should not be chewed or crushed. (Same as: Protonix) fluticasone 2 spray, Route: No Longer [facility] nasal 0.05 NASAL, Drug Active 2014 Medical mg/inh spray Form: SPRY, Center Daily, Start date: 07/28/14 9:00:00, Duration: 30 day, Stop date: 08/26/14 9:00:00Notes: (Same as: Flonase) Prednisone 10 mg, 1 tab, No Longer [facility] Route: PO, Drug Active 2014 Medical form: TAB, Center Daily, Dosing Weight 74.29, kg, Start date: 07/28/14 9:00:00, Duration: 30 day, Stop date: 08/26/14 9:00:00Notes: (Same as: PredniSONE) Take with food. 120 ACTUAT 100 microgram, 2 No Longer [facility] mometasone spray, Route: Active 2014 Medical furoate 0.05 NASAL, Daily, Center MG/ACTUAT Nasal Drug form: SPRY, Inhaler Start date: [Nasonex] 07/28/14 9:00:00, Duration: 30 day, Stop date: 08/26/14 9:00:00 Fish Oil 1,000 mg, 1 cap, No Longer [facility] Route: PO, Drug Active 2014 Medical form: CAP, Center Daily, Dosing Weight 74.29, kg, Start date: 07/28/14 9:00:00, Duration: 30 day, Stop date: 08/26/14 9:00:00Notes: (Same as: MaxEPA, Egan 3 fish oil ) Non-Formulary Drug Potassium 10 mEq, 1 tab, No Longer [place] Chloride 10 MEQ Route: PO, Drug Active 2014 Medical Extended Release form: ERTAB, Center Tablet Daily, Dosing Weight 74.29, kg, Start date: 07/28/14 9:00:00, Duration: 30 day, Stop date: 08/26/14 9:00:00Notes: (Same as: K-Dur 10) "Do Not Crush" With food and full glass of water tiotropium 0.018 18 microgram, 1 No Longer [facility] MG/ACTUAT inhalation, Active 2014 Medical Inhalant Powder Route: [place] [Spiriva] INHALATION, Drug form: CAP, Daily, Dosing Weight 74.29, kg, Start date: 07/28/14 9:00:00, Duration: 30 day, Stop date: 08/26/14 9:00:00Notes: (Same As: Spiriva). Loratadine 10 mg, 1 tab, No Longer [place] Route: PO, Drug Active 2014 Medical form: TAB, Center Daily, Dosing Weight 74.29, kg, Start date: 07/28/14 9:00:00, Duration: 30 day, Stop date: 08/26/14 9:00:00Notes: 1 hr before meals (Same as: Claritin) Furosemide 20 MG 20 mg, 1 tab, No Longer [place] Oral Tablet Route: PO, Drug Active 2014 Medical form: TAB, Center Daily, Dosing Weight 74.29, kg, Start date: 07/28/14 9:00:00, Duration: 30 day, Stop date: 08/26/14 9:00:00Notes: (Same as: Lasix) May cause GI upset. Give with food or milk. Coreg CR 40 mg, Route: No Longer [place] PO, QAM, Dosing Active 2014 Medical Weight 74.29, Center kg, Start date: 07/28/14 9:00:00, Duration: 30 day, Stop date: 08/26/14 9:00:00 NovoLOG 70/30 36 unit, 0.36 No Longer [place] mL, Route: Active 2014 Medical SUB-Q, Drug Center form: SUSP, Breakfast, Dosing Weight 74.29, kg, Start date: 07/28/14 8:00:00, Duration: 30 day, Stop date: 08/26/14 8:00:00Notes: (Same as: NovoLOG Mix 70/30) Albuterol 0.833 3 ml, Route: Inactive [place] MG/ML / NEB, Dosing 2014 Medical Ipratropium Weight 74.29, Center [place] 0.167 kg, RQ8H, Start MG/ML Inhalant date: 07/27/14 Solution 23:00:00, Duration: 30 day, Stop date: 08/26/14 15:00:00 Xopenex 0.63 mg, 3 mL, No Longer [place] Route: NEB, Drug Active 2014 Medical form: SOLN, Center RQ8H, Dosing Weight 74.29, kg, Start date: 07/27/14 23:00:00, Duration: 30 day, Stop date: 08/26/14 15:00:00, Substitute Allowed NoNotes: SEE RT DOCUMENTATION (Same as:Xopenex) Non-Formulary Insulin, Aspart, 8 unit, 0.08 mL, No Longer [place] Human Route: SUB-Q, Active 2014 Medical Drug form: SOLN, Center TID-Before Meals, Dosing Weight 74.29, kg, PRN Blood Glucose Results, Start date: 07/27/14 22:50:00, Duration: 30 day, Stop date: 08/26/14 22:49:00Notes: Roll in palms of hands gently; Do not shake vigorously. (Same as: NovoLOG) "single patient use only" Stable for 28 days at room temperature. Expires in days from Da te Glucagon 1 mg, Route: IM, No Longer [facility] Drug form: Active 2014 Medical PDR/INJ, PRN, Center Dosing Weight 74.29, kg, PRN Blood Glucose Results, Start date: 07/27/14 22:50:00, Duration: 30 day, Stop date: 08/26/14 22:49:00 Dextrose 50% 25 gm, 50 mL, No Longer [place] Syringe Route: IVP, Drug Active 2014 Medical Form: INJ, Center Dosing Weight 74.29, kg, PRN, PRN Blood Glucose Results, Start date: 07/27/14 22:50:00, Duration: 30 day, Stop date: 08/26/14 22:49:00 Insulin, Aspart, 10 unit, 0.1 mL, Inactive [facility] Human Route: SUB-Q, 2014 Medical Drug form: SOLN, Center ONCE, Dosing Weight 74.29, kg, Start date: 07/27/14 21:27:00, Stop date: 07/27/14 21:27:00Notes: Roll in palms of hands gently; Do not shake vigorously. (Same as: NovoLOG) "single patient use only" Stable for 28 days at room temperature. Expires in days from Da te Xopenex 0.63 mg, 3 mL, No Longer [facility] Route: NEB, Drug Active 2014 Medical form: SOLN, PRN, Center Dosing Weight 74.29, kg, PRN Respiratory Protocol, Start date: 07/27/14 18:23:00, Duration: 30 day, Stop date: 08/26/14 18:22:00, Substitute Allowed NoNotes: SEE RT DOCUMENTATION (Same as:Xopenex) Non-Formulary Coreg 12.5 mg, 1 tab, No Longer [facility] Route: PO, Drug Active 2014 Medical form: TAB, BID, Center Start date: 07/27/14 17:00:00, Duration: 30 day, Stop date: 08/26/14 9:00:00Notes: Give with food. (Same As: Coreg) Brovana 15 microgram, Inactive [facility] Route: NEB, Drug 2014 Medical form: SOLN, BID, Center Dosing Weight 74.29, kg, Start date: 07/27/14 17:00:00, Duration: 30 day, Stop date: 08/26/14 9:00:00 Fenofibrate 145 145 mg, 1 tab, No Longer [place] MG Oral Tablet Route: PO, Drug Active 2014 Medical form: TAB, Center Dinner, Dosing Weight 74.29, kg, Start date: 07/27/14 17:00:00, Duration: 30 day, Stop date: 08/25/14 17:00:00Notes: (Same as: Tricor) Docusate 100 mg, 1 cap, No Longer [facility] Route: PO, Drug Active 2014 Medical form: CAP, BID, Center Dosing Weight 74.29, kg, PRN Constipation, Start date: 07/27/14 17:00:00, Stop date: 08/26/14 9:00:00Notes: (Same as: Colace) (Do Not Crush) Insulin, Aspart, 4 unit, 0.04 mL, Inactive [facility] Human Route: SUB-Q, 2014 Medical Drug form: SOLN, Center TID-Before Meals, Dosing Weight 74.29, kg, PRN Blood Glucose Results, Start date: 07/27/14 15:29:00, Duration: 30 day, Stop date: 08/26/14 15:28:00Notes: Roll in palms of hands gently; Do not shake vigorously. (Same as: NovoLOG) "single patient use only" Stable for 28 days at room temperature. Expires in days from Da te Dextrose 50% 25 gm, 50 mL, Inactive [facility] Syringe Route: IVP, Drug 2014 Medical Form: INJ, Center Dosing Weight 74.29, kg, PRN, PRN Blood Glucose Results, Start date: 07/27/14 15:29:00, Duration: 30 day, Stop date: 08/26/14 15:28:00 Glucagon 1 mg, Route: IM, Inactive 07/[facility] Drug form: 2014 Medical PDR/INJ, PRN, Center Dosing Weight 74.29, kg, PRN Blood Glucose Results, Start date: 07/27/14 15:29:00, Duration: 30 day, Stop date: 08/26/14 15:28:00 Hydralazine 10 mg, 0.5 mL, No Longer [facility] Route: IV, Drug Active 2014 Medical form: INJ, Q4H, Center Dosing Weight 74.29, kg, PRN Hypertension, Start date: 07/27/14 15:03:00, Duration: 30 day, Stop date: 08/26/14 15:02:00, SBP>130Notes: (Same as: Apresoline) Push over 5 minutes Enoxaparin 40 mg, 0.4 mL, No Longer [place] Route: SUB-Q, Active 2014 Medical Drug form: INJ, Center [id number], Dosing Weight 74.29, kg, Start date: 07/27/14 15:00:00, Duration: 30 day, Stop date: 08/25/14 15:00:00Notes: (Same as: Lovenox) Acetaminophen 650 mg, 2 tab, No Longer [facility] Route: PO, Drug Active 2014 Medical form: TAB, Q4H, Center Dosing Weight 74.29, kg, PRN Pain 1-3/Temp > 100.4 F, Start date: 07/27/14 14:52:00, Duration: 30 day, Stop date: 08/26/14 14:51:00Notes: Do not exceed 4 gm/day. (Same as: Tylenol) Ondansetron 4 mg, 2 mL, No Longer [facility] Route: IVP, Drug Active 2014 Medical form: INJ, ONCE, Center Dosing Weight 74.29, kg, PRN Nausea & Vomiting, Start date: 07/27/14 14:52:00Notes: (Same as: Zofran) MEDICATION WASTE Product Size: 4 mg Product Wasted: ___ mg arformoterol =1 ea, NEB, BID, Active [facility] 0.0075 MG/ML # 60 ea, 0 2014 Medical Inhalant Refill(s) Center Solution [Brovana] predniSONE 10 mg 10 mg=1 tab, PO, Active [facility] oral tablet Daily, # 7 tab, 2014 Medical 0 Refill(s) Center Furosemide 20 MG 20 mg=1 tab, PO, Active [facility] Oral Tablet Daily, # 30 tab, 2015 Medical 0 Refill(s) Center glimepiride 4 mg, PO, BID, 0 Active [facility] Refill(s) 2014 Medical Center 120 ACTUAT 2 spray, NASAL, Active [facility] mometasone Daily, In each 2014 Medical furoate 0.05 nostril, # 17 Center MG/ACTUAT Nasal gm, 1 Inhaler Refill(s)Special [Nasonex] Instructions: In each nostril loratadine 10 mg 10 mg=1 cap, PO, Active [facility] oral capsule Daily, # 10 cap, 2014 Medical 0 Refill(s) [place] Fenofibrate 145 145 mg=1 tab, Active [facility] MG Oral Tablet PO, Dinner, # 30 2015 Medical tab, 0 Refill(s) [facility] Coreg CR 40 mg, PO, QAM, No Longer [facility] 0 Refill(s) Active 2014 Medical [place] NovoLOG 70/30 36, SUB-Q, No Longer [facility] Breakfast, 0 Active 2014 Medical Refill(s) [place] potassium 10 mEq=1 cap, Active [facility] chloride 10 mEq PO, Daily, # 30 2015 Medical oral capsule, cap, 1 Refill(s) [facility] extended release tiotropium 0.018 18 microgram=1 Active 07/27[facility] MG/ACTUAT cap, INHALATION, 2015 Medical Inhalant Powder Daily, Use two Center [Spiriva] inhalations of one capsule for each dose, # 30 cap, 1 Refill(s)Special Instructions: Use two inhalations of one capsule for each dose Probiotic 1 cap, PO, Active [facility] Formula oral Daily, 0 2014 Medical capsule Refill(s) [facility] Co Q-10 100 mg 100 mg=1 cap, Active [facility] oral capsule PO, Daily, 0 2015 Medical Refill(s) [place] Fish Oil 1000 mg 1,000 mg=1 cap, Active [facility] oral capsule PO, Daily, 0 2014 Medical Refill(s) [place] vitamin E 200 =1 tab, PO, Active 07/27[facility] intl units oral Daily, # 14 tab, 2015 Medical tablet 0 Refill(s) [place] Vitamin D3 400 400 IntlUnit=1 Active 07/27[facility] intl units oral cap, PO, Daily, 2015 Medical capsule 0 Refill(s) [place] Vitamin C 500 mg 1,000 mg=2 cap, Active 07/27[facility] oral capsule PO, Daily, # 30 2015 Medical cap, 0 Refill(s) Center Allergies, Adverse Reactions, Alerts Substance Category Reaction Severity Reaction Status Date Comments Source type Reported Adhesive Tape Assertion Drug Active [facility] codeine Assertion Drug Active [facility] penicillins Assertion Drug Active [facility] Immunizations Immunization Date Given Site Status Last Updated Comments Source Results Order Name Results Value Reference Date Interpretation Comments Source Range Chest 1view Chest 1view EXAM: XR CHEST 1 VIEW 09/22 - [facility] DATE: 09/22/2017 3:00 AM CDT Read by: Jean Pierre Todd MD Dictated Date/time: 09/22/17 10:46 Electronically Signed by: Jean Pierre Todd MD 09/22/17 10:47 FINAL REPORT INDICATION: - Lung congestion COMPARISON: 09/21/2017 TECHNIQUE: AP chest IMPRESSION: 1. Cardiac mediastinal silhouette is normal for technique. Aortic atherosclerotic disease. 2. Left chest wall triple leads AICD with leads terminate in the right atrium, right ventricle and coronary sinus. 3. Mild hyperinflation of both lungs is underlying obstructive lung disease. Minimal bibasilar subsegmental atelectatic changes. No consolidative changes identified. 4. Costophrenic sulci are sharp. 5. Osseous structures are stable. Chest 1view Chest 1view EXAM: XR CHEST 1 VIEW 09/21 - [facility] DATE: 09/21/2017 3:00 AM CDT Read by: Marilyn Zapata MD Dictated Date/time: 09/21/17 09:05 Electronically Signed by: Marilyn Zpaata MD 09/21/17 10:14 FINAL REPORT INDICATION: - Lung congestion. FINDINGS: Comparison is made to September 20. Cardiomediastinal silhouette and postoperative changes are stable. Aortic and coronary artery calcifications. 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 The lungs are clear and well-expanded. There are no pleural effusions. IMPRESSION: The lungs are clear. Chest 1view Chest 1view EXAM: XR CHEST 1 VIEW 09/20 - [facility] DATE: 09/20/2017 3:00 AM CDT Read by: Ana Campbell MD Dictated Date/time: 09/20/17 09:54 Electronically Signed by: Ana Campbell MD 09/20/17 09:57 FINAL REPORT INDICATION: - Lung congestion COMPARISON: Chest radiograph 09/19/2017 at 9:26 AM. TECHNIQUE: AP chest. IMPRESSION: 1. Stable postsurgical changes and cardiomediastinal silhouette. 2. Left-sided triple lead ICD remains in place. 3. No pleural effusions or pneumothorax. 4. The lungs are hyperinflated, suggestive of COPD. Retroperito Retroperitone EXAM: US RENAL 09/19 - [facility] sasha al Complete - Medical Complete US US This report was dictated by a Phlebotomy Services Representative/ Fellow. I have personally reviewed the images as Center well as the Resident's interpretation and agree with the findings. DATE: 09/19/2017 3:23 PM CDT Read by: Chloe Lewis MD Resident: Chloe Lewis MD Dictated Date/time: 09/20/17 13:53 Electronically Signed by: Hubert Chambers MD 09/20/17 16:11 FINAL REPORT INDICATION: - recurrent UTI, hx of bladder repair ADDITIONAL INFORMATION: None. COMPARISON: CT abdomen pelvis from 09/15/2017. TECHNIQUE: Multiplanar grayscale and color Doppler ultrasound of the kidneys and urinary bladder. FINDINGS: Right kidney: Size: 10.6 x 4.4 x 6.8 cm. Cortical thickness: Normal. Hydronephrosis: None. Echogenicity: Normal. Calculi: None. Cysts/Masses: 0.7 x 0.6 x 0.7 cm exophytic simple cyst off the midpole cortex of the right kidney. Left kidney: Size: 10.2 x 5.6 x 5.0 cm. Cortical thickness: Normal. Hydronephrosis: None. Echogenicity: Normal. Calculi: None. Cysts/Masses: None. Bladder: Outpouching of the superior/anterior portion of the bladder, likely secondary to small bowel impression on the bladder/ prior repair changes. Free fluid: None. Other: None. IMPRESSION: 1. Small exophytic simple cyst in the right kidney. 2. No hydronephrosis or evidence of obstruction. Esophagus Esophagus BA EXAM: FLUOROSCOPY MODIFIED BARIUM SWALLOW 09/19 - [facility] BA swallow swallow - Medical function function This report was dictated by a Phlebotomy Services Representative/ Fellow. I have personally reviewed the images as Center video DX video DX well as the Resident's interpretation and agree with the findings. DATE: 09/19/2017 1:43 PM CDT Read by: Michael Burris MD Resident: Michael Burris MD Dictated Date/time: 09/20/17 14:55 Electronically Signed by: Rohit Yi MD 09/20/17 15:32 FINAL REPORT INDICATION: - eval for possible aspiration. ADDITIONAL INFORMATION: None. COMPARISON: None. TECHNIQUE: Oral barium contrast of differing consistencies was given to the patient to assess swallowing mechanism. The study was performed in conjunction with speech pathology. FLUOROSCOPY TIME: 55 seconds DISCUSSION: The patient was given barium contrast of different consistencies. Thin barium: Silent aspiration. [place] barium: Normal. [place]ud[place] barium: Normal. Solid with barium: Normal. IMPRESSION: 1. Silent aspiration with thin barium consistency. 2. Please also see detailed chart note by speech pathology. Chest 1view Chest 1view EXAM: XR CHEST 1 VIEW 09/19 - [facility] DX /2017 [facility] DATE: 09/19/2017 3:00 AM CDT Read by: Jean Pierre Todd MD Dictated Date/time: 09/19/17 09:44 Electronically Signed by: Jean Pierre Todd MD 09/19/17 09:48 FINAL REPORT INDICATION: Dyspnea - dyspnea COMPARISON: September 18, 2017 TECHNIQUE: AP chest IMPRESSION: 1. Hyperinflation of both lungs again seen suggestive of underlying COPD. Minimal bibasilar subsegmental atelectatic changes. No consolidative changes identified. 2. Costophrenic sulci are sharp. 3. Left chest wall triple leads AICD leads terminates in the right ischium , right ventricle and coronary sinus. 4. Osseous structures are stable. 5. Cardiomediastinal silhouette is normal for technique. Chest 1view Chest 1view EXAM: XR CHEST 1 VIEW 09/18 - [facility] DX /2017 [facility] DATE: 09/18/2017 3:00 AM CDT Read by: Shimon Chapman MD Dictated Date/time: 09/18/17 11:12 Electronically Signed by: Shimon Chapman 09/18/17 11:13 FINAL REPORT INDICATION: Dyspnea - dyspnea COMPARISON: 09/17/2017 TECHNIQUE: AP chest FINDINGS: Stable left implantable cardiac defibrillator. Stable cardiomediastinal silhouette. Improvement in lung aeration with decreased subsegmental atelectasis. No pleural effusion. No pneumothorax g iven the limitation of a semiupright exam. Unchanged skeletal structures. IMPRESSION: Improvement in lung aeration with decreased subsegmental atelectasis. Chest 1view Chest 1view EXAM: XR CHEST 1 VIEW 09/17 [facility]2017 [facility] DATE: 09/17/2017 3:00 AM CDT Read by: Shimon Chapman MD Dictated Date/time: 09/17/17 09:50 Electronically Signed by: Shimon Chapman 09/17/17 09:51 FINAL REPORT INDICATION: Dyspnea - dyspnea COMPARISON: 09/16/2017 TECHNIQUE: AP chest FINDINGS: Stable left implantable cardiac defibrillator. Stable cardiomediastinal silhouette. Bilateral infrahilar and retrocardiac subsegmental atelectasis. No pleural effusion. No pneumothorax given t he limitation of a semiupright exam. Unchanged skeletal structures. IMPRESSION: No significant changes compared to the prior radiograph. Chest 1view Chest 1view EXAM: XR CHEST 1 VIEW 09/16 [facility] DATE: 09/16/2017 3:00 AM CDT Read by: Marilyn Zapata MD Dictated Date/time: 09/16/17 09:55 Electronically Signed by: Marilyn Zapata MD 09/16/17 12:03 FINAL REPORT INDICATION: Dyspnea - dyspnea. FINDINGS: Comparison is made to September 15. Cardiomediastinal silhouette and postoperative changes are stable. Patient is status post median sternotomy. 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 The left hemidiaphragm is slightly elevated. The lungs are clear. No pleural effusions. IMPRESSION: The lungs are clear. Chest 1view Chest 1view EXAM: XR CHEST 1 VIEW 09/15 [facility] DATE: 09/15/2017 6:04 AM CDT Read by: Jean Pierre Todd MD Dictated Date/time: 09/15/17 09:38 Electronically Signed by: Jean Pierre Todd MD 09/15/17 09:40 FINAL REPORT INDICATION: Chest pain - Pre Op testing COMPARISON: 09/14/2017 TECHNIQUE: AP chest IMPRESSION: 1. Cardiomediastinal silhouette is normal for technique. Aortic atherosclerotic disease. 2. Hyperinflation of both lungs noted suggestive of underlying obstructive lung disease. No consolidative changes identified. 3. Costophrenic sulci are sharp. 4. Osseous structures are stable. 5. Left chest wall triple leads AICD again seen and stable in position. CHEM PANEL Magnesium Lvl 1.9 mg/dL 1.8 - 2.4 08/[address] CHEM PANEL Phosphorus 3.1 mg/dL 2.5 - 4.5 08/[address] CHEM PANEL A/G Ratio 0.7 0.7 - 1.6 08/[address] CHEM PANEL Bili Indirect 0.4 mg/dL 0.0 - 1.0 08/[address] CHEM PANEL Bili Direct 0.2 mg/dL 0.0 - 0.3 08/[address] CHEM PANEL Globulin 3.3 g/dL 2.0 - 4.0 08/[address] CHEM PANEL Bili Total 0.6 mg/dL 0.2 - 1.3 08/[address] CHEM PANEL Alk Phos 38 unit/L 39 - 136 08/[address] CHEM PANEL AST 12 unit/L 0 - 37 08/[address] CHEM PANEL ALT 18 unit/L 0 - 65 08/[address] CHEM PANEL Albumin Lvl 2.4 g/dL 3.5 - 5.0 08/[address] CHEM PANEL Total Protein 5.7 g/dL 6.4 - 8.4 08/[address] ELECTROLYTE AGAP 11.2 meq/L 10.0 - 08/04 [facility] 20.0 [facility] ELECTROLYTE eGFR 35 08/04 1Result Comment: The eGFR is calculated using the CKD-EPI formula. In most young, healthy individuals the eGFR will be > 90 mL/min/1.73m2. The eGFR declines with age. An eGFR of 60-89 may be normal in [facility] mL/min/1.7 /2014 some populations, particularly the elderly, for whom the CKD-EPI formula has not been extensively validated. Use of the eGFR is not recommended in the following populations: Medical [facility] Individuals with unstable creatinine concentrations, including patients and those with serious co-morbid conditions. Patients with extremes in muscle mass or diet. The data above are obtained from the National Kidney Disease Education Program (NKDEP) which additionally recommends that when the eGFR is used in patients with extremes of body mass index for purposes of drug dosing, the eGFR should be multiplied by the estimated BMI. ELECTROLYTE CO2 29 meq/L 24 - 32 08/04 [facility] ELECTROLYTE Calcium Lvl 9.0 mg/dL 8.5 - 10.5 08/04 [facility] ELECTROLYTE Chloride Lvl 103 meq/L 95 - 109 08/04 [facility] ELECTROLYTE BUN 14 mg/dL 7 - 08/04 [facility] ELECTROLYTE Creatinine 1.4 mg/dL 0.5 - 1.4 08/04 [facility] ELECTROLYTE Potassium Lvl 4.2 meq/L 3.5 - 5.1 08/04 [facility] ELECTROLYTE Sodium Lvl 139 meq/L 135 - 145 08/04 [facility] ELECTROLYTE Glucose Lvl 196 mg/dL 70 - 99 08/04 4Interpretive Data: Adult reference range values reflect the clinical guidelines of the [place] [employer]. [facility] HEMATOLOGY MCHC 33.6 g/dL 32.0 - 08/04 36.0 [facility] HEMATOLOGY RDW 13.9 % 11.5 - 08/04 14. [facility] HEMATOLOGY MPV 8.0 fL 7.4 - 10.4 08/04 [facility] HEMATOLOGY Platelet 156 K/CMM 133 - 450 08/04 [facility] HEMATOLOGY RBC 2.87 M/CMM 4.20 - 08/04 5.40 [facility] HEMATOLOGY Hgb 9.0 g/dL 12.0 - 08/04 16. [facility] HEMATOLOGY Hct 26.8 % 36.0 - 08/04 [place] 48.0 [facility] HEMATOLOGY MCV 93.6 fL 80.0 - 08/04 [place] 98.0 [facility] HEMATOLOGY MCH 31.4 pg 27.0 - 08/04 [place] 31.0 [facility] HEMATOLOGY WBC 7.1 K/CMM 3.7 - 10.4 08/04 [facility] HEMATOLOGY Lymphocytes 30.8 % 20.0 - 08/04 [place] 40.0 [facility] HEMATOLOGY Monocytes 9.9 % 2.0 - 12.0 08/04 2014 [facility] HEMATOLOGY Eosinophils 5.0 % 0.0 - 4.0 08/04 [facility] HEMATOLOGY Basophils 0.6 % 0.0 - 1.0 08/04 [facility] HEMATOLOGY Segs 53.7 % 45.0 - 08/04 [place] 75.0 [facility] HEMATOLOGY Eosinophils # 0.4 K/CMM 0.0 - 0.5 08/04 [facility] HEMATOLOGY Monocytes # 0.7 K/CMM 0.0 - 0.8 08/04 2014 [facility] HEMATOLOGY Segs-Bands # 3.8 K/CMM 1.5 - 8.1 08/04 [facility] HEMATOLOGY Lymphocytes # 2.2 K/CMM 1.0 - 5.5 08/04 [facility] PARATHYROID Ca Ion WB 1.17 1.05 - 08/04 [facility] PROFILE mMol/L 1. [facility] PARATHYROID Ca Norm WB 1.18 1.05 - 08/04 [facility] PROFILE mMol/L 1. [facility] CHEM PANEL Magnesium Lvl 1.9 mg/dL 1.8 - 2.4 08/03 [facility] CHEM PANEL Phosphorus 2.7 mg/dL 2.5 - 4.5 08/03 [facility] ELECTROLYTE AGAP 11.2 meq/L 10.0 - 08/03 [facility] S 20.0 [facility] ELECTROLYTE Glucose Lvl 180 mg/dL 70 - 99 08/03 5Interpretive Data: Adult reference range values reflect the clinical guidelines [facility] of the [place] [employer]. [facility] ELECTROLYTE CO2 28 meq/L 24 - 32 08/03 [facility] ELECTROLYTE BUN 11 mg/dL 7 - 22 08/03 [facility]2014 [facility] ELECTROLYTE eGFR 42 08/03 2Result Comment: The eGFR is calculated using the CKD-EPI formula. In most young, healthy individuals the eGFR will be > 90 mL/min/1.73m2. The eGFR declines with age. An eGFR of 60-89 may be normal in [facility] mL/min/1. /2014 some populations, particularly the elderly, for whom the CKD-EPI formula has not been extensively validated. Use of the eGFR is not recommended in the following populations: Medical [address] [place] [address] Individuals with unstable creatinine concentrations, including patients and those with serious co-morbid conditions. Patients with extremes in muscle mass or diet. The data above are obtained from the National Kidney Disease Education Program (NKDEP) which additionally recommends that when the eGFR is used in patients with extremes of body mass index for purposes of drug dosing, the eGFR should be multiplied by the estimated BMI. ELECTROLYTE Calcium Lvl 8.4 mg/dL 8.5 - 10.5 08/03 [facility]2014 [facility] ELECTROLYTE Chloride Lvl 107 meq/L 95 - 109 08/[address] ELECTROLYTE Potassium Lvl 4.2 meq/L 3.5 - 5.1 08/03 [facility]2014 [facility] ELECTROLYTE Sodium Lvl 142 meq/L 135 - 145 08/[address] ELECTROLYTE Creatinine 1.2 mg/dL 0.5 - 1.4 08/03 [facility] HEMATOLOGY Segs 56.7 % 45.0 - 08/03 [facility] 75.0 [facility] HEMATOLOGY Segs-Bands # 4.3 K/CMM 1.5 - 8.1 08/[address] HEMATOLOGY Basophils 0.8 % 0.0 - 1.0 08/[address] HEMATOLOGY Monocytes 9.1 % 2.0 - 12.0 08/[address] HEMATOLOGY Lymphocytes 29.0 % 20.0 - 08/03 [facility] 40.0 [facility] HEMATOLOGY Eosinophils 4.4 % 0.0 - 4.0 08/[address] HEMATOLOGY Basophils # 0.1 K/CMM 0.0 - 0.2 08/[address] HEMATOLOGY Lymphocytes # 2.2 K/CMM 1.0 - 5.5 08/[address] HEMATOLOGY Eosinophils # 0.3 K/CMM 0.0 - 0.5 08/[address] HEMATOLOGY Monocytes # 0.7 K/CMM 0.0 - 0.8 08/03 [facility] HEMATOLOGY RBC 2.64 M/CMM 4.20 - 08/03 [facility] 5.40 /2014 [facility] HEMATOLOGY WBC 7.6 K/CMM 3.7 - 10.4 08/03 [facility] HEMATOLOGY Hct 24.7 % 36.0 - 08/03 [facility] 48.0 [facility] HEMATOLOGY Hgb 8.3 g/dL 12.0 - 08/03 16.0 [facility] HEMATOLOGY MCHC 33.8 g/dL 32.0 - 08/03 [facility] 36.0 [facility] HEMATOLOGY MCH 31.6 pg 27.0 - 08/03 [facility] 31.0 [facility] HEMATOLOGY Platelet 113 K/CMM 133 - 450 08/03 [facility] HEMATOLOGY RDW 13.5 % 11.5 - 08/03 [facility] 14.5 [facility] HEMATOLOGY MPV 8.0 fL 7.4 - 10.4 08/03 [facility] HEMATOLOGY MCV 93.5 fL 80.0 - 08/03 [facility] 98.0 [facility] PARATHYROID Ca Norm WB 1.14 1.05 - 08/03 [facility] PROFILE mMol/L 1. [facility] PARATHYROID Ca Ion WB 1.14 1.05 - 08/03 [facility] PROFILE mMol/L 1. [facility] CHEM PANEL Magnesium Lvl 1.9 mg/dL 1.8 - 2.4 08/02 [facility] CHEM PANEL Phosphorus 1.8 mg/dL 2.5 - 4.5 08/02 [facility] ELECTROLYTE AGAP 13.0 meq/L 10.0 - 08/02 [facility] S 20.0 [facility] ELECTROLYTE eGFR 42 08/02 3Result Comment: The eGFR is calculated using the CKD-EPI formula. In most young, healthy individuals the eGFR will be > 90 mL/min/1.73m2. The eGFR declines with age. An eGFR of 60-89 may be normal in [facility] mL/min/1. some populations, particularly the elderly, for whom the CKD-EPI formula has not been extensively validated. Use of the eGFR is not recommended in the following populations: [address] Individuals with unstable creatinine concentrations, including patients and those with serious co-morbid conditions. Patients with extremes in muscle mass or diet. The data above are obtained from the National Kidney Disease Education Program (NKDEP) which additionally recommends that when the eGFR is used in patients with extremes of body mass index for purposes of drug dosing, the eGFR should be multiplied by the estimated BMI. ELECTROLYTE Calcium Lvl 7.7 mg/dL 8.5 - 10.5 08/02 [facility] ELECTROLYTE CO2 25 meq/L 24 - 32 08/02 [facility] ELECTROLYTE Chloride Lvl 109 meq/L 95 - 109 08/02 [facility]2014 [facility] ELECTROLYTE Potassium Lvl 4.0 meq/L 3.5 - 5.1 08/02 [facility]2014 [facility] ELECTROLYTE Glucose Lvl 171 mg/dL 70 - 99 08/02 6Interpretive Data: Adult reference range values reflect the clinical guidelines [facility] of the [place] [employer]. [facility] ELECTROLYTE BUN 11 mg/dL 7 - 22 08/02 [facility] 2014 [facility] ELECTROLYTE Sodium Lvl 143 meq/L 135 - 145 08/02 [facility]2014 [facility] ELECTROLYTE Creatinine 1.2 mg/dL 0.5 - 1.4 08/02 [facility] HEMATOLOGY Eosinophils # 0.3 K/CMM 0.0 - 0.5 08/02 [facility]2014 [facility] HEMATOLOGY Lymphocytes # 2.3 K/CMM 1.0 - 5.5 08/02 [facility]2014 [facility] HEMATOLOGY Monocytes # 0.7 K/CMM 0.0 - 0.8 08/02 [facility] HEMATOLOGY Lymphocytes 23.7 % 20.0 - 08/02 [facility] 40.0 [facility] HEMATOLOGY Monocytes 7.6 % 2.0 - 12.0 08/02 [facility]2014 [facility] HEMATOLOGY Eosinophils 2.6 % 0.0 - 4.0 08/02 [facility]2014 [facility] HEMATOLOGY Basophils 0.2 % 0.0 - 1.0 08/02 [facility]2014 [facility] HEMATOLOGY Segs-Bands # 6.4 K/CMM 1.5 - 8.1 08/02 [facility]2014 [facility] HEMATOLOGY Segs 65.9 % 45.0 - 08/02 [place] 75.0 [facility] HEMATOLOGY MPV 8.0 fL 7.4 - 10.4 08/02 [facility] HEMATOLOGY Platelet 101 K/CMM 133 - 450 08/02 [facility] HEMATOLOGY Hct 25.8 % 36.0 - 08/02 [place] 48.0 /2014 [facility] HEMATOLOGY MCV 93.9 fL 80.0 - 08/02 [facility] 98.0 /2014 [facility] HEMATOLOGY WBC 9.7 K/CMM 3.7 - 10.4 08/02 [facility] HEMATOLOGY RBC 2.74 M/CMM 4.20 - 08/02 [facility] 5.40 /2014 [facility] HEMATOLOGY Hgb 8.6 g/dL 12.0 - 08/02 [place] 16.0 /2014 [facility] HEMATOLOGY MCHC 33.3 g/dL 32.0 - 08/02 [place] 36.0 [facility] HEMATOLOGY RDW 13.7 % 11.5 - 08/02 [facility] 14.5 /2014 [facility] HEMATOLOGY MCH 31.3 pg 27.0 - 08/02 [facility] 31.0 [facility] PARATHYROID Ca Ion WB 1.11 1.05 - 08/02 [facility] PROFILE mMol/L 1. [facility] PARATHYROID Ca Norm WB 1.14 1.05 - 08/02 [facility] PROFILE mMol/L 1.25 [facility] MOLECULAR C difficile Negative 11 Negative 07/31 11Interpretive Data: [employer] Clostridium difficile assay utilizes loop-mediated isothermal DNA amplification (LAMP) technology to detect a 204 bp region of the tcdA gene within the PaLoc gene [facility] segment present in all known toxigenic C. difficile strains. [facility] (07/31/14 3:20 PM) [place] The assay utilizes FDA cleared IVD reagents. Performance characteristics have been verified by the [facility] within the [facility]. The [facility] is authorized under the Clinical Laboratory Improvement Amendment of 1988 (CLIA-88) to perform high complexity testing. CARDIAC proBNP 1385 pg/mL 0 - 450 07/31 [facility] ENZYMES [facility] HEMATOLOGY Basophils # 0.1 K/CMM 0.0 - 0.2 07/31 [facility] BLOOD BANK FFP product Product available 07/30 [facility] (07/30/14 9:17 AM) [place] BLOOD BANK RBC product Product available 07/30 [facility] (07/30/14 9:17 AM) [place] CHEM PANEL Bili Indirect 0.4 mg/dL 0.0 - 1.0 07/30 [facility] CHEM PANEL Bili Total 0.5 mg/dL 0.2 - 1.3 07/30 [facility] CHEM PANEL Bili Direct 0.1 mg/dL 0.0 - 0.3 07/30 2014 [facility] CHEM PANEL ALT 20 unit/L 0 - 65 07/30 [facility] CHEM PANEL A/G Ratio 1.0 0.7 - 1.6 07/30 [facility] CHEM PANEL Albumin Lvl 3.1 g/dL 3.5 - 5.0 07/30 [facility]2014 [facility] CHEM PANEL Total Protein 6.2 g/dL 6.4 - 8.4 07/30 [facility]2014 [facility] CHEM PANEL Globulin 3.1 g/dL 2.0 - 4.0 07/30 2014 [facility] CHEM PANEL Alk Phos 40 unit/L 39 - 136 07/30 [facility] CHEM PANEL AST 43 unit/L 0 - 37 07/30 [facility] HEMATOLOGY Basophils # 0.1 K/CMM 0.0 - 0.2 07/30 [facility] LIPIDS VLDL 74 07/30 [facility] LIPIDS LDL 62 mg/dL <=99 mg/dL 07/30 [facility] (Calculated) [facility] LIPIDS Trig 369 mg/dL <=149 07/30 [facility] mg/dL [facility] LIPIDS Chol 191 mg/dL <=199 07/30 [facility] mg/dL [facility] LIPIDS HDL 55 mg/dL >=61 mg/dL 07/30 [facility] LIPIDS CHD Risk 3.47 3.90 - 07/30 [place] 5.80 /2014 [facility] BLOOD BANK Platelet Product available 07/30 [facility] RESULTS product Medical (07/30/14 4:00 AM) [place] BLOOD BANK FFP product Product available 07/30 RESULTS /2014 Medical (07/30/14 4:00 AM) [place] BLOOD BANK RBC product Product available 07/30 [facility] RESULTS Medical (07/30/14 4:00 AM) [place] BLOOD BANK Antibody Scrn Negative 07/29 RESULTS Medical (07/29/14 3:21 PM) [place] BLOOD BANK ABO/Rh A POS 07/29 [facility] RESULTS [facility] CHEM PANEL Uric Acid 3.6 mg/dL 2.5 - 7.0 07/29 [facility] HEMATOLOGY PTT 25.8 s 22.9 - 07/29 9Interpretive [facility] 35.8 /2014 Data: Heparin [facility]rapeutic Center Range: 57 - 92 [facility] HEMATOLOGY INR 1.01 0.85 - 07/29 7Interpretive Data: RECOMMENDED RANGES FOR PROTIME INR: [facility] 1. 2.0-3.0 for most medical and surgical thromboembolic states. [facility] 2.5-3.5 for artificial heart valves and recurrent embolism. Center INR SHOULD BE USED ONLY FOR PATIENTS ON STABLE ANTICOAGULANT THERAPY. HEMATOLOGY PT 13.3 s 12.0 - 07/29 [facility] 14.7 [facility] IMMUNOLOGY C3 Complement 99 mg/dL 88 - 201 07/29 [facility] IMMUNOLOGY C4 Complement 25 mg/dL 16 - 47 07/29 [facility] PARATHYROID PTH Intact 66.8 pg/mL 11.1 - 07/29 [facility] PROFILE 79.5 [facility] CARDIAC proBNP 1634 pg/mL 0 - 450 07/29 [facility] ENZYMES [facility] URINE AND UA Ketones Negative Negative 07/28 [facility] STOOL mg/dL mg/dL /2014 [facility] URINE AND UA Glucose 200 mg/dL Negative 07/28 [facility] STOOL mg/dL /2014 [facility] URINE AND UA Blood Negative Negative 07/28 [facility] (07/28/14 1:10 PM) [place] URINE AND UA Bili Negative Negative 07/28 [facility] Medical *NA* [place] (07/28/14 1:10 PM) URINE AND UA <=1.0 0.1 - 1.0 07/28 [facility] Urobilinogen mg/dL /2014 [facility] URINE AND UA Leuk Est Negative Negative 07/28 [facility] (07/28/14 1:10 PM) [place] URINE AND UA Nitrite Negative Negative 07/28 [facility] (07/28/14 1:10 PM) [place] URINE AND UA Sq Epi Occasional Few /LPF 07/28 [facility] STOOL /LPF /2014 [facility] URINE AND UA Turbidity Clear Clear 07/28 [facility] (07/28/14 1:10 PM) [place] URINE AND UA Color Light Yellow Yellow 07/28 [facility] Medical *NA* Center (07/28/14 1:10 PM) URINE AND UA pH 6.0 5.0 - 8.0 07/28 [facility] URINE AND UA Spec Grav 1.006 <=1.030 07/28 [facility] URINE AND UA Protein Negative Negative 07/28 [facility] STOOL mg/dL mg/dL [facility] SPECIAL Hgb A1C 8.1 % <=5.6 % 07/28 [facility] CHEMISTRY [address] [place] [address] CHEM PANEL Bili Total 0.5 mg/dL 0.2 - 1.3 07/27 [facility]2014 [facility] CHEM PANEL Alk Phos 41 unit/L 39 - 136 07/[address] CHEM PANEL AST 25 unit/L 0 - 37 07/[address] CHEM PANEL ALT 21 unit/L 0 - 65 07/[address] CHEM PANEL Albumin Lvl 3.2 g/dL 3.5 - 5.0 07/27 [facility] [address] [place] [address] CHEM PANEL Total Protein 6.0 g/dL 6.4 - 8.4 07/[address] CHEM PANEL A/G Ratio 1.1 0.7 - 1.6 07/[address] CHEM PANEL Globulin 2.8 g/dL 2.0 - 4.0 07/[address] CHEM PANEL B/C Ratio 16 6 - 25 07/[address] HEMATOLOGY PTT 27.7 s 22.9 - 07/27 [facility] 35.8 /2015 e Data: [facility] Therapeutic Range: 57 - 92 Seconds HEMATOLOGY PT 13.7 s 12.0 - 07/27 [facility] 14.7 [facility] HEMATOLOGY INR 1.05 0.85 - 07/27 8Interpretive Data: RECOMMENDED RANGES FOR PROTIME INR: [facility] 1. 2.0-3.0 for most medical and surgical thromboembolic states. Medical 2.5-3.5 for artificial heart valves and recurrent embolism. Center INR SHOULD BE USED ONLY FOR PATIENTS ON STABLE ANTICOAGULANT THERAPY. Vital Signs Vital Sign Value Date Comments Source Respitory Rate 18 08/04/2014 [facility] Systolic (mm Hg) 119 08/04/2014 [facility] Diastolic (mm Hg) 53 08/04/2014 [facility] Systolic (mm Hg) 98 08/04/2014 [facility] Diastolic (mm Hg) 48 08/04/2014 [facility] Systolic (mm Hg) 117 08/04/2014 [facility] Diastolic (mm Hg) 60 08/04/2014 [facility] Respitory Rate 18 08/04/2014 [facility] Temperature Oral (F) 99.0 F 08/04/2014 [facility] Respitory Rate 18 08/04/2014 [facility] Temperature Oral (F) 98.4 F 08/04/2014 [facility] Temperature Oral (F) 98.5 F 08/04/2014 [facility] Height 162.56 cm 07/27/2014 [facility] BMI Calculated 28.11 07/27/2014 [facility] Weight 74.29 07/27/2014 [facility] Encounters Location Location Encounter Encounter Reason Attending ADM DC Status Source Details Type Number For Provider Date Date Visit [facility] [id number] Rick 07/27 08/04 [facility] Watson Munguia /2014 [facility] Procedures Procedure Code Date Perfomer Comments Source CABG x 3 - Coronary [id number] 07/16/1999 [facility] artery bypass grafts Medical x 3 Center Cholecystectomy [id number] 02/14/1973 [facility] Bladder operation [id number] 02/14/1953 [facility]
--- OUTSIDE RECORDS SUMMARY | 2017-09-29 11:13 | XMS REPORT | Summary of Care ---
:1930 Author Encounter HQ Cuca_amisha(ROSEMARIE) [id number] Date(s): 07/27/14 - 08/04/14 [facility] [address] [employer] provided by [facility] [place] [address]- Discharge Disposition: Home Physician Attending: Ozzie Doss MD Physician Admitting: Ozzie Doss MD Physician_Referring: Rick Munguia MD Vital Signs Most recent to oldest 1 2 3 [Reference Range]: Height 162.56 cm (07/27/14 2:15 PM) Current Weight 75.6 kg 69.5 kg 74.091 kg (08/03/14 9:00 AM) (08/01/14 10:30 AM) (07/28/14 4:25 AM) Temperature Oral [96.4-99.1 99.0 DegF 98.4 DegF 98.5 DegF DegF] (08/04/14 11:00 AM) (08/04/14 7:00 AM) (08/04/14 4:31 AM) Blood Pressure [90-140/60-90 119/53 mmHg 98/48 mmHg 117/60 mmHg mmHg] (08/04/14 3:00 PM) (08/04/14 2:00 PM) (08/04/14 12:00 PM) Respiratory Rate [14-20 18 BRMIN 18 BRMIN 18 BRMIN BRMIN] (08/04/14 3:00 PM) (08/04/14 11:09 AM) (08/04/14 7:00 AM) Weight 74.29 kg (07/27/14 2:15 PM) Body Mass Index 28.11 m2 (07/27/14 2:15 PM) Problem List Condition Effective Dates Status Health Status Informant 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) CAD (coronary artery 1992 Resolved disease)(Confirmed) Cardiomyopathy(Confirmed) 1992 Resolved COPD(Confirmed) 1992 Resolved Diabetes(Confirmed) 1987 Resolved HTN (hypertension)(Confirmed) 1992 Resolved 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 (Same as: Tylenol) Start Date: 07/27/14 Stop Date: 08/04/14 Status: Discontinuedacetaminophen 325 mg oral tablet 650 mg=2 tab, PO, Q4H, PRN Pain 1-3/Temp > 100.4 F, # 50 tab, 0 Refill(s) Start Date: 08/04/14 Stop Date: 08/21/14 Status: Orderedalbuterol-ipratropium 2.5-0.5 mg inhalation solution 3 ml, Route: NEB, Dosing Weight 74.29, kg, RQ8H, Start date: 07/27/14 23:00:00, Duration: 30 day, Stop date: 08/26/14 15:00:00 Start Date: 07/27/14 Stop Date: 07/27/14 Status: Canceledbisoprolol 5 mg, 1 tab, Route: PO, Drug form: TAB, Daily, Dosing Weight 74.29, kg, Start date: 07/30/14 9:00:00, Duration: 30 day, Stop date: 08/28/14 9:00:00 Notes: (Same As: Zebeta) Start Date: 07/30/14 Stop Date: 08/04/14 Status: Discontinuedbisoprolol 5 mg oral tablet 5 mg=1 tab, PO, Daily, # 30 tab, 0 Refill(s) Start Date: 08/04/14 Status: OrderedBrovana 15 microgram, Route: NEB, Drug form: SOLN, BID, Dosing Weight 74.29, kg, Start date: 07/27/14 17:00:00, Duration: 30 day, Stop date: 08/26/14 9:00:00 Start Date: 07/27/14 Stop Date: 07/27/14 Status: DiscontinuedBrovana 15 mcg/2 mL inhalation solution =1 ea, NEB, BID, # 60 ea, 0 Refill(s) Start Date: 07/27/14 Status: Orderedcalcium gluconate + Sodium Chloride 0.9% IV 100 mL 3 gm, 30 mL, Route: IVPB, PRN, Dosing Weight 74.29, kg, PRN Abnormal Lab Result , For NON-ICU Patients Only., Start date: 07/31/14 6:15:00, Duration: 30 day, Stop date: 08/30/14 6:14:00 Start Date: 07/31/14 Stop Date: 08/04/14 Status: Discontinuedcalcium gluconate + Sodium Chloride 0.9% IV 100 mL 2 gm, 20 mL, Route: IVPB, PRN, Dosing Weight 74.29, kg, PRN Abnormal Lab Result , For NON-ICU Patients Only., Start date: 07/31/14 6:15:00, Duration: 30 day, Stop date: 08/30/14 6:14:00 Start Date: 07/31/14 Stop Date: 08/04/14 Status: DiscontinuedCo Q-10 100 mg oral capsule 100 mg=1 cap, PO, Daily, 0 Refill(s) Start Date: 07/27/14 Status: OrderedCoreg 12.5 mg, 1 tab, Route: PO, Drug form: TAB, BID, Start date: 07/27/14 17:00:00, Duration: 30 day, Stop date: 08/26/14 9:00:00 Notes: Give with food. (Same As: Coreg) Start Date: 07/27/14 Stop Date: 07/29/14 Status: DiscontinuedCoreg CR 40 mg, PO, QAM, 0 Refill(s) Start Date: 07/27/14 Stop Date: 08/04/14 Status: DiscontinuedCoreg CR 40 mg, Route: PO, QAM, Dosing Weight 74.29, kg, Start date: 07/28/14 9:00:00, Duration: 30 day, Stopdate: 08/26/14 9:00:00 Start Date: 07/28/14 Stop Date: 07/27/14 Status: WekferuY3A 1/2NS 1,000 mL 1,000 mL, Rate: 60 ml/hr, Infuse over: 16.7 hr, Route: IV, Dosing Weight 74.29 kg, Total Volume: 1,000, Start date: 07/30/14 18:10:00, Duration: 30 day, Stop date: 08/29/14 18:09:00 Start Date: 07/30/14 Stop Date: 07/31/14 Status: DiscontinuedDextrose 50% Syringe 25 gm, 50 mL, Route: IVP, Drug Form: INJ, Dosing Weight 74.29, kg, PRN, PRN Blood Glucose Results, Start date: 07/27/14 15:29:00, Duration: 30 day, Stop date: 08/26/14 15:28:00 Start Date: 07/27/14 Stop Date: 07/27/14 Status: DiscontinuedDextrose 50% Syringe 12.5 gm, 25 mL, Route: IVP, Drug Form: INJ, Dosing Weight 74.29, kg, PRN, PRN Blood Glucose Results,Start date: 07/27/14 15:29:00, Duration: 30 day, Stop date : 08/26/14 15:28:00 Start Date: 07/27/14 Stop Date: 07/27/14 Status: DiscontinuedDextrose 50% Syringe 25 gm, 50 mL, Route: IVP, Drug Form: INJ, Dosing Weight 74.29, kg, PRN, PRN Blood Glucose Results, Start date: 07/27/14 22:50:00, Duration: 30 day, Stop date: 08/26/14 22:49:00 Start Date: 07/27/14 Stop Date: 08/04/14 Status: DiscontinuedDextrose 50% Syringe 12.5 gm, 25 mL, Route: IVP, Drug Form: INJ, Dosing Weight 74.29, kg, PRN, PRN Blood Glucose Results,Start date: 07/27/14 22:50:00, Duration: 30 day, Stop date : 08/26/14 22:49:00 Start Date: 07/27/14 Stop Date: 08/04/14 Status: DiscontinuedDextrose 50% Syringe 12.5 gm, Route: IVP, Dosing Weight 74.29, kg, ONCE, Start date: 07/30/14 7:19:00 , Stop date: 07/30/14 7:19:00 Start Date: 07/30/14 Stop Date: 07/30/14 Status: Discontinueddocusate 100 mg, 1 cap, Route: PO, Drug form: CAP, BID, Dosing Weight 74.29, kg, PRN Constipation, Start date: 07/27/14 17:00:00, Stop date: 08/26/14 9:00:00 Notes: (Same as: Colace) (Do Not Crush) Start Date: 07/27/14 Stop Date: 08/04/14 Status: Discontinuedenoxaparin 40 mg, 0.4 mL, Route: SUB-Q, Drug form: INJ, [id number], Dosing Weight 74.29, kg, Start date: 07/27/1514:00:00, Duration: 30 day, Stop date: 08/25/14 15:00:00 Notes: (Same as: Lovenox) Start Date: 07/27/14 Stop Date: 08/04/14 Status: Discontinuedfenofibrate 145 mg oral tablet 145 mg=1 tab, PO, Dinner, # 30 tab, 0 Refill(s) Start Date: 07/27/14 Status: Orderedfenofibrate 145 mg oral tablet 145 mg, 1 tab, Route: PO, Drug form: TAB, Dinner, Dosing Weight 74.29, kg, Start date: 07/27/14 17:00:00, Duration: 30 day, Stop date: 08/25/14 17:00:00 Notes: (Same as: Tricor) Start Date: 07/27/14 Stop Date: 08/04/14 Status: DiscontinuedFish Oil 1,000 mg, 1 cap, Route: PO, Drug form: CAP, Daily, Dosing Weight 74.29, kg, Start date: 07/28/14 9:00:00, Duration: 30 day, Stop date: 08/26/14 9:00:00 Notes: (Same as: MaxEPA, Moseley 3 fish oil )Non-Formulary Drug Start Date: 07/28/14 Stop Date: 08/04/14 Status: DiscontinuedFish Oil 1000 mg oral capsule 1,000 mg=1 cap, PO, Daily, 0 Refill(s) Start Date: 07/27/14 Status: Orderedflumazenil 0.2 mg, 2 mL, Route: IVP, Drug form: INJ, PRN, Dosing Weight 74.29, kg, PRN Benzodiazepine Reversal,Initial dose, Start date: 07/30/14 12:53:00, Stop date: 07/31/14 12:00:00 Notes: (Same as: Romazicon) Start Date: 07/30/14 Stop Date: 07/31/14 Status: Completedfluticasone nasal 0.05 mg/inh spray 2 spray, Route: NASAL, Drug Form: SPRY, Daily, Start date: 07/28/14 9:00:00, Duration: 30 day, Stop date: 08/26/14 9:00:00 Notes: (Same as: Flonase) Start Date: 07/28/14 Stop Date: 08/04/14 Status: Discontinuedfurosemide 20 mg oral tablet 20 mg=1 tab, PO, Daily, # 30 tab, 0 Refill(s) Start Date: 07/27/14 Status: Orderedfurosemide 20 mg oral tablet 20 mg, 1 tab, Route: PO, Drug form: TAB, Daily, Dosing Weight 74.29, kg, Start date: 07/28/14 9:00:00, Duration: 30 day, Stop date: 08/26/14 9:00:00 Notes: (Same as: Lasix) May cause GI upset. Give with food or milk. Start Date: 07/28/14 Stop Date: 08/04/14 Status: Discontinuedglimepiride 4 mg, PO, BID, 0 Refill(s) Start Date: 07/27/14 Status: Orderedglucagon 1 mg, Route: IM, Drug form: PDR/INJ, PRN, Dosing Weight 74.29, kg, PRN Blood Glucose Results, Start date: 07/27/14 15:29:00, Duration: 30 day, Stop date: 15:28:00 Start Date: 07/27/14 Stop Date: 07/27/14 Status: Discontinuedglucagon 1 mg, Route: IM, Drug form: PDR/INJ, PRN, Dosing Weight 74.29, kg, PRN Blood Glucose Results, Start date: 07/27/14 22:50:00, Duration: 30 day, Stop date: 22:49:00 Start Date: 07/27/14 Stop Date: 08/04/14 Status: DiscontinuedhydrALAZINE 10 mg, 0.5 mL, Route: IV, Drug form: INJ, Q4H, Dosing Weight 74.29, kg, PRN Hypertension, Start date: 07/27/14 15:03:00, Duration: 30 day, Stop date: 15:02:00, SBP>130 Notes: (Same as: Apresoline)Push over 5 minutes Start Date: 07/27/14 Stop Date: 08/04/14 Status: Discontinuedhydromorphone 0.2 mg, 0.1 mL, Route: IVP, Drug form: INJ, Q5Min, Dosing Weight 74.29, kg, PRN Pain Score 7-10, Start date: 07/30/14 12:53:00, Duration: 2 doses or times, Stop date: 07/31/14 12:00:00 Notes: Same as: Dilaudid Start Date: 07/30/14 Stop Date: 07/31/14 Status: Completedinsulin aspart 4 unit, 0.04 mL, Route: SUB-Q, Drug form: SOLN, TID-Before Meals, Dosing Weight 74.29, kg, PRN BloodGlucose Results, Start date: 07/27/14 15:29:00, Duration: 30 day, Stop date: 08/26/14 15:28:00 Notes: Roll in palms of hands gently; Do not shake vigorously. (Same as: NovoLOG)"single patient use only" Stable for 28 days at room temperature.Expires in days from Date Start Date: 07/27/14 Stop Date: 07/27/14 Status: Discontinuedinsulin aspart 3 unit, 0.03 mL, Route: SUB-Q, Drug form: SOLN, TID-Before Meals, Dosing Weight 74.29, kg, PRN BloodGlucose Results, Start date: 07/27/14 15:29:00, Duration: 30 day, Stop date: 08/26/14 15:28:00 Notes: Roll in palms of hands gently; Do not shake vigorously. (Same as: NovoLOG)"single patient use only" Stable for 28 days at room temperature.Expires in days from Date Start Date: 07/27/14 Stop Date: 07/27/14 Status: Discontinuedinsulin aspart 2 unit, 0.02 mL, Route: SUB-Q, Drug form: SOLN, TID-Before Meals, Dosing Weight 74.29, kg, PRN BloodGlucose Results, Start date: 07/27/14 15:29:00, Duration: 30 day, Stop date: 08/26/14 15:28:00 Notes: Roll in palms of hands gently; Do not shake vigorously. (Same as: NovoLOG)"single patient use only" Stable for 28 days at room temperature.Expires in days from Date Start Date: 07/27/14 Stop Date: 07/27/14 Status: Discontinuedinsulin aspart 1 unit, 0.01 mL, Route: SUB-Q, Drug form: SOLN, TID-Before Meals, Dosing Weight 74.29, kg, PRN BloodGlucose Results, Start date: 07/27/14 15:29:00, Duration: 30 day, Stop date: 08/26/14 15:28:00 Notes: Roll in palms of hands gently; Do not shake vigorously. (Same as: NovoLOG)"single patient use only" Stable for 28 days at room temperature.Expires in days from Date Start Date: 07/27/14 Stop Date: 07/27/14 Status: Discontinuedinsulin aspart 5 unit, 0.05 mL, Route: SUB-Q, Drug form: SOLN, TID-Before Meals, Dosing Weight 74.29, kg, PRN BloodGlucose Results, Start date: 07/27/14 15:29:00, Duration: 30 day, Stop date: 08/26/14 15:28:00 Notes: Roll in palms of hands gently; Do not shake vigorously. (Same as: NovoLOG)"single patient use only" Stable for 28 days at room temperature.Expires in days from Date Start Date: 07/27/14 Stop Date: 07/27/14 Status: Discontinuedinsulin aspart 2 unit, 0.02 mL, Route: SUB-Q, Drug form: SOLN, TID-Before Meals, Dosing Weight 74.29, kg, PRN BloodGlucose Results, Start date: 07/31/14 14:09:00, Duration: 30 day, Stop date: 08/30/14 14:08:00 Notes: Roll in palms of hands gently; Do not shake vigorously. (Same as: NovoLOG)"single patient use only" Stable for 28 days at room temperature.Expires in days from Date Start Date: 07/31/14 Stop Date: 08/04/14 Status: Discontinuedinsulin aspart 3 unit, 0.03 mL, Route: SUB-Q, Drug form: SOLN, TID-Before Meals, Dosing Weight 74.29, kg, PRN BloodGlucose Results, Start date: 07/31/14 14:09:00, Duration: 30 day, Stop date: 08/30/14 14:08:00 Notes: Roll in palms of hands gently; Do not shake vigorously. (Same as: NovoLOG)"single patient use only" Stable for 28 days at room temperature.Expires in days from Date Start Date: 07/31/14 Stop Date: 08/04/14 Status: Discontinuedinsulin aspart 4 unit, 0.04 mL, Route: SUB-Q, Drug form: SOLN, TID-Before Meals, Dosing Weight 74.29, kg, PRN BloodGlucose Results, Start date: 07/31/14 14:09:00, Duration: 30 day, Stop date: 08/30/14 14:08:00 Notes: Roll in palms of hands gently; Do not shake vigorously. (Same as: NovoLOG)"single patient use only" Stable for 28 days at room temperature.Expires in days from Date Start Date: 07/31/14 Stop Date: 08/04/14 Status: Discontinuedinsulin aspart 1 unit, 0.01 mL, Route: SUB-Q, Drug form: SOLN, TID-Before Meals, Dosing Weight 74.29, kg, PRN BloodGlucose Results, Start date: 07/31/14 14:09:00, Duration: 30 day, Stop date: 08/30/14 14:08:00 Notes: Roll in palms of hands gently; Do not shake vigorously. (Same as: NovoLOG)"single patient use only" Stable for 28 days at room temperature.Expires in days from Date Start Date: 07/31/14 Stop Date: 08/04/14 Status: Discontinuedinsulin aspart 5 unit, 0.05 mL, Route: SUB-Q, Drug form: SOLN, TID-Before Meals, Dosing Weight 74.29, kg, PRN BloodGlucose Results, Start date: 07/31/14 14:09:00, Duration: 30 day, Stop date: 08/30/14 14:08:00 Notes: Roll in palms of hands gently; Do not shake vigorously. (Same as: NovoLOG)"single patient use only" Stable for 28 days at room temperature.Expires in days from Date Start Date: 07/31/14 Stop Date: 08/04/14 Status: Discontinuedinsulin aspart 6 unit, 0.06 mL, Route: SUB-Q, Drug form: SOLN, TID-Before Meals, Dosing Weight 74.29, kg, Start date: 07/31/14 16:30:00, Stop date: 08/30/14 11:30:00 Notes: Roll in palms of hands gently; Do not shake vigorously. (Same as: NovoLOG)"single patient use only" Stable for 28 days at room temperature.Expires in days from Date Start Date: 07/31/14 Stop Date: 08/04/14 Status: Discontinuedinsulin aspart 8 unit, 0.08 mL, Route: SUB-Q, Drug form: SOLN, TID-Before Meals, Dosing Weight 74.29, kg, PRN BloodGlucose Results, Start date: 07/27/14 22:50:00, Duration: 30 day, Stop date: 08/26/14 22:49:00 Notes: Roll in palms of hands gently; Do not shake vigorously. (Same as: NovoLOG)"single patient use only" Stable for 28 days at room temperature.Expires in days from Date Start Date: 07/27/14 Stop Date: 07/31/14 Status: Discontinuedinsulin aspart 10 unit, 0.1 mL, Route: SUB-Q, Drug form: SOLN, TID-Before Meals, Dosing Weight 74.29, kg, PRN BloodGlucose Results, Start date: 07/27/14 22:50:00, Duration: 30 day, Stop date: 08/26/14 22:49:00 Notes: Roll in palms of hands gently; Do not shake vigorously. (Same as: NovoLOG)"single patient use only" Stable for 28 days at room temperature.Expires in days from Date Start Date: 07/27/14 Stop Date: 07/31/14 Status: Discontinuedinsulin aspart 6 unit, 0.06 mL, Route: SUB-Q, Drug form: SOLN, TID-Before Meals, Dosing Weight 74.29, kg, PRN BloodGlucose Results, Start date: 07/27/14 22:50:00, Duration: 30 day, Stop date: 08/26/14 22:49:00 Notes: Roll in palms of hands gently; Do not shake vigorously. (Same as: NovoLOG)"single patient use only" Stable for 28 days at room temperature.Expires in days from Date Start Date: 07/27/14 Stop Date: 07/31/14 Status: Discontinuedinsulin aspart 4 unit, 0.04 mL, Route: SUB-Q, Drug form: SOLN, TID-Before Meals, Dosing Weight 74.29, kg, PRN BloodGlucose Results, Start date: 07/27/14 22:50:00, Duration: 30 day, Stop date: 08/26/14 22:49:00 Notes: Roll in palms of hands gently; Do not shake vigorously. (Same as: NovoLOG)"single patient use only" Stable for 28 days at room temperature.Expires in days from Date Start Date: 07/27/14 Stop Date: 07/31/14 Status: Discontinuedinsulin aspart 2 unit, 0.02 mL, Route: SUB-Q, Drug form: SOLN, TID-Before Meals, Dosing Weight 74.29, kg, PRN BloodGlucose Results, Start date: 07/27/14 22:50:00, Duration: 30 day, Stop date: 08/26/14 22:49:00 Notes: Roll in palms of hands gently; Do not shake vigorously. (Same as: NovoLOG)"single patient use only" Stable for 28 days at room temperature.Expires in days from Date Start Date: 07/27/14 Stop Date: 07/31/14 Status: Discontinuedinsulin aspart 10 unit, 0.1 mL, Route: SUB-Q, Drug form: SOLN, ONCE, Dosing Weight 74.29, kg, Start date: 07/27/14 21:27:00, Stop date: 07/27/14 21:27:00 Notes: Roll in palms of hands gently; Do not shake vigorously. (Same as: NovoLOG)"single patient use only" Stable for 28 days at room temperature.Expires in days from Date Start Date: 07/27/14 Stop Date: 07/27/14 Status: Completedinsulin aspart-insulin aspart protamine 16 unit, 0.16 mL, Route: SUB-Q, Drug form: SUSP, Before Breakfast, Dosing Weight 74.29, kg, Start date: 07/31/14 11:48:00, Duration: 30 day, Stop date: 7:30:00 Notes: (Same as: NovoLOG Mix /30) Start Date: 07/31/14 Stop Date: 07/31/14 Status: Discontinuedinsulin glargine 15 unit, 0.15 mL, Route: SUB-Q, Drug form: INJ, Daily, Dosing Weight 74.29, kg, Start date: 07/31/1513:09:00, Duration: 30 day, Stop date: 08/30/14 9:00:00 Notes: Same as Charbel Mckeon not hold insulin without contacting prescriber"single patient use only" Stable for 28 days at room temperature.Expires in days from Date Start Date: 07/31/14 Stop Date: 08/04/14 Status: DiscontinuedketOROLAC 15 mg/mL injectable solution 15 mg, 1 mL, Route: IV, Drug form: INJ, ONCE, Dosing Weight 74.29, kg, Start date: 07/31/14 4:06:00,Stop date: 07/31/14 4:06:00 Notes: (Same as:Toradol) IV bolus must be given >15 seconds. Give IM administration slowly and deeply into the muscle. Not for use > 4 days. Start Date: 07/31/14 Stop Date: 07/31/14 Status: CompletedLantus 100 units/mL 25 unit, SUB-Q, QAM, # 10 mL, 3 Refill(s) Start Date: 08/04/14 Status: Orderedloratadine 10 mg, 1 tab, Route: PO, Drug form: TAB, Daily, Dosing Weight 74.29, kg, Start date: 07/28/14 9:00:00, Duration: 30 day, Stop date: 08/26/14 9:00:00 Notes: 1 hr before meals (Same as: Claritin) Start Date: 07/28/14 Stop Date: 08/04/14 Status: Discontinuedloratadine 10 mg oral capsule 10 mg=1 cap, PO, Daily, # 10 cap, 0 Refill(s) Start Date: 07/27/14 Stop Date: 08/06/14 Status: Orderedmagnesium oxide 800 mg, 2 tab, Route: PO, Drug form: TAB, PRN, Dosing Weight 74.29, kg, PRN Abnormal Lab Result, ForNON-ICU Patients Only., Start date: 07/31/14 6:15:00, Duration: 30 day, Stop date: 08/30/14 6:14:00 Notes: (Same as: Mag-Ox 400)Magnesium oxide 978ub=152rm elemental magnesiumDose= ____mg magnesium oxide (___mg elemental magnesium) Start Date: 07/31/14 Stop Date: 08/04/14 Status: Discontinuedmagnesium sulfate 1 gm, 100 mL, Route: IVPB, Drug form: INJ, PRN, Dosing Weight 74.29, kg, PRN Abnormal Lab Result, For NON-ICU Patients Only., Start date: 07/31/14 6:15:00, Duration: 30 day, Stop date: 08/30/14 6:14:00 Start Date: 07/31/14 Stop Date: 08/04/14 Status: Discontinuedmagnesium sulfate 2 gm, 50 mL, Route: IVPB, Drug form: INJ, PRN, Dosing Weight 74.29, kg, PRN Abnormal Lab Result, ForNON-ICU Patients Only., Start date: 07/31/14 6:15:00, Duration: 30 day, Stop date: 08/30/14 6:14:00 Start Date: 07/31/14 Stop Date: 08/04/14 Status: DiscontinuedmetFORMIN 500 mg oral tablet 500 mg=1 tab, PO, BID-Meals, # 60 tab, 0 Refill(s) Start Date: 08/04/14 Status: OrderedMucomyst oral solution (mg) 600 mg, 3 mL, Route: PO, Drug form: SOLN, Q12H, Dosing Weight 74.29, kg, give 6 doses, Start date: 07/29/14 21:00:00, Duration: 6 doses or times, Stop date: 9:00:00 Start Date: 07/29/14 Stop Date: 08/01/14 Status: Completednaloxone 0.04 mg, 0.1 mL, Route: IVP, Drug form: INJ, Q2MIN, Dosing Weight 74.29, kg, PRN Narcotic Reversal, Start date: 07/30/14 12:53:00, Duration: 8 doses or times , Stop date: 07/31/14 12:20:00 Notes: Same as Narcan Start Date: 07/30/14 Stop Date: 07/31/14 Status: CompletedNasonex 50 mcg/inh nasal spray 2 spray, NASAL, Daily, In each nostril, # 17 gm, 1 Refill(s) Special Instructions: In each nostril Start Date: 07/27/14 Status: OrderedNasonex 50 mcg/inh nasal spray 100 microgram, 2 spray, Route: NASAL, Daily, Drug form: SPRY, Start date: 9:00:00, Duration: 30 day, Stop date: 08/26/14 9:00:00 Start Date: 07/28/14 Stop Date: 07/27/14 Status: Deletednitroglycerin 0.2 mg/hr transdermal film 1 patch, Route: TOP, Drug Form: ERFILM, Dosing Weight 74.29, kg, Daily, Start date: 07/30/14 9:00:00, Duration: 30 day, Stop date: 08/28/14 9:00:00 Notes: Apply only once for up to 12 hours in a 24 hour period (12 hours on and 12 hours off.)(Same as:Nitro-Dur,Deponit,Transderm Nitro) For topical use only. "Remove old patch before application of new patch" Start Date: 07/30/14 Stop Date: 08/04/14 Status: DiscontinuedNovoLOG 70/30 36, SUB-Q, Breakfast, 0 Refill(s) Start Date: 07/27/14 Stop Date: 08/04/14 Status: DiscontinuedNovoLOG 70/30 36 unit, 0.36 mL, Route: SUB-Q, Drug form: SUSP, Breakfast, Dosing Weight 74.29 , kg, Start date: 07/28/14 8:00:00, Duration: 30 day, Stop date: 08/26/14 8:00: 00 Notes: (Same as: NovoLOG Mix 70/30) Start Date: 07/28/14 Stop Date: 07/31/14 Status: DiscontinuedNovoLOG 70/30 36 unit, 0.36 mL, Route: SUB-Q, Drug form: SUSP, Breakfast, Dosing Weight 74.29 , kg, Start date: 07/31/14 8:00:00, Duration: 30 day, Stop date: 08/29/14 8:00: 00 Notes: (Same as: NovoLOG Mix 70/30) Start Date: 07/31/14 Stop Date: 07/31/14 Status: DiscontinuedNS 1,000 mL 1,000 mL, Rate: 30 ml/hr, Infuse over: 33.3 hr, Route: IV, Dosing Weight 74.29 kg, Total Volume: 1,000, Start date: 07/31/14 9:02:00, Stop date: 08/30/14 9:01: 00 Start Date: 07/31/14 Stop Date: 08/02/14 Status: DiscontinuedNS 1,000 mL 1,000 mL, Rate: 60 ml/hr, Infuse over: 16.7 hr, Route: IV, Dosing Weight 74.29 kg, Total Volume: 1,000, Start date: 07/29/14 20:27:00, Duration: 30 day, Stop date: 08/28/14 20:26:00 Start Date: 07/29/14 Stop Date: 07/30/14 Status: Discontinuedondansetron 4 mg, 5 mL, Route: PO, Drug form: SOLN, Q8H, Dosing Weight 74.29, kg, PRN as needed for nausea/vomiting, Start date: 07/30/14 17:42:00, Duration: 30 day, Stop date: 08/29/14 17:41:00 Notes: (Same as: Zofran) Start Date: 07/30/14 Stop Date: 07/30/14 Status: Discontinuedondansetron 4 mg, 2 mL, Route: IV, Drug form: INJ, Q8H, Dosing Weight 74.29, kg, PRN as needed for nausea/vomiting, Start date: 07/30/14 18:08:00, Duration: 30 day, Stop date: 08/29/14 18:07:00 Notes: (Same as: Zofran) MEDICATION WASTE Product Size: 4 mgProduct Wasted: _0_ mg Start Date: 07/30/14 Stop Date: 08/04/14 Status: Discontinuedondansetron 4 mg, 2 mL, Route: IVP, Drug form: INJ, ONCE, Dosing Weight 74.29, kg, PRN Nausea & Vomiting, Start date: 07/27/14 14:52:00 Notes: (Same as: Zofran) MEDICATION WASTE Product Size: 4 mgProduct Wasted: ___ mg Start Date: 07/27/14 Stop Date: 07/28/14 Status: Completedondansetron 4 mg, 2 mL, Route: IVP, Drug form: INJ, ONCE, Dosing Weight 74.29, kg, PRN Nausea & Vomiting, Start date: 07/30/14 12:53:00 Notes: (Same as: Zofran) MEDICATION WASTE Product Size: 4 mgProduct Wasted: ___ mg Start Date: 07/30/14 Stop Date: 07/30/14 Status: Completedpantoprazole 40 mg oral enteric coated tablet 40 mg=1 tab, PO, Daily, # 30 tab, 0 Refill(s) Start Date: 08/04/14 Status: OrderedPlasmaLyte A PH-7.4 1,000 mL 1,000 mL, Rate: 50 ml/hr, Infuse over: 20 hr, Route: IV, Dosing Weight 74.29 kg , Total Volume: 1,000, Start date: 07/30/14 0:00:00, Duration: 30 day, Stop date : 08/28/14 23:59:00 Start Date: 07/30/14 Stop Date: 07/29/14 Status: Canceledpotassium chloride 20 mEq, 1 tab, Route: PO, Drug form: ERTAB, PRN, Dosing Weight 74.29, kg, PRN Abnormal Lab Result, For NON-ICU Patients Only, Start date: 07/31/14 6:15:00, Duration: 30 day, Stop date: 08/30/14 6:14:00 Notes: (Same as: K-Dur 20)"Do Not Crush" With food and full glass of water Start Date: 07/31/14 Stop Date: 08/04/14 Status: Discontinuedpotassium chloride 20 mEq, 15 mL, Route: NJ, Drug form: LIQ, PRN, Dosing Weight 74.29, kg, PRN Abnormal Lab Result, ForNON-ICU Patients Only, Start date: 07/31/14 6:15:00, Duration: 30 day, Stop date: 08/30/14 6:14:00 Notes: (Same as: Potassium Chloride) Start Date: 07/31/14 Stop Date: 08/04/14 Status: Discontinuedpotassium chloride 10 mEq, 100 mL, Route: IVPB, Drug form: INJ, PRN, Dosing Weight 74.29, kg, PRN Abnormal Lab Result, For NON-ICU Patients Only, Start date: 07/31/14 6:15:00, Duration: 30 day, Stop date: 08/30/14 6:14:00 Notes: Infuse at a rate of 10 mEq/hr.(Same as: KCL) Start Date: 07/31/14 Stop Date: 08/04/14 Status: Discontinuedpotassium chloride 10 mEq oral capsule, extended release 10 mEq=1 cap, PO, Daily, # 30 cap, 1 Refill(s) Start Date: 07/27/14 Status: Orderedpotassium chloride 10 mEq oral tablet, extended release 10 mEq, 1 tab, Route: PO, Drug form: ERTAB, Daily, Dosing Weight 74.29, kg, Start date: 07/28/14 9:00:00, Duration: 30 day, Stop date: 08/26/14 9:00:00 Notes: (Same as: K-Dur 10)"Do Not Crush" With food and full glass of water Start Date: 07/28/14 Stop Date: 08/04/14 Status: Discontinuedpotassium phosphate + Sodium Chloride 0.9% IV 250 mL 15 mmol, 5 mL, Route: IVPB, PRN, Dosing Weight 74.29, kg, PRN Abnormal Lab Result, For NON-ICU Patients Only., Start date: 07/31/14 6:15:00, Duration: 30 day, Stop date: 08/30/14 6:14:00 Notes: (Same as: K Phosphate.) 1 mMol phoshate has 1.47 mEq potassium Infuse over 4 hours Start Date: 07/31/14 Stop Date: 08/04/14 Status: Discontinuedpotassium phosphate + Sodium Chloride 0.9% IV 250 mL 30 mmol, 10 mL, Route: IVPB, PRN, Dosing Weight 74.29, kg, PRN Abnormal Lab Result, For NON-ICU Patients Only., Start date: 07/31/14 6:15:00, Duration: 30 day, Stop date: 08/30/14 6:14:00 Notes: (Same as: K Phosphate.) 1 mMol phoshate has 1.47 mEq potassium Infuse over 4 hours Start Date: 07/31/14 Stop Date: 08/04/14 Status: Discontinuedpotassium phosphate-sodium phosphate 250 mg-278 mg-164 mg oral powder 2 pkt, Route: PO, Drug Form: PDR/REC, Dosing Weight 74.29, kg, PRN, PRN Abnormal Lab Result, For NON-ICU Patients Only, Start date: 07/31/14 6:15:00, Duration: 30 day, Stop date: 08/30/14 6:14:00 Notes: (Same as: Neutra-Phos) Each 1.25 gm pkt has 250mg phosphorous. Mix w/ 2.5oz water and stir. Start Date: 07/31/14 Stop Date: 08/04/14 Status: DiscontinuedpredniSONE 10 mg, 1 tab, Route: PO, Drug form: TAB, Daily, Dosing Weight 74.29, kg, Start date: 07/28/14 9:00:00, Duration: 30 day, Stop date: 08/26/14 9:00:00 Notes: (Same as: PredniSONE) Take with food. Start Date: 07/28/14 Stop Date: 07/29/14 Status: DiscontinuedpredniSONE 5 mg, 1 tab, Route: PO, Drug form: TAB, Daily, Dosing Weight 74.29, kg, Start date: 07/30/14 9:00:00, Duration: 30 day, Stop date: 08/28/14 9:00:00 Notes: Take with food. Start Date: 07/30/14 Stop Date: 08/04/14 Status: DiscontinuedpredniSONE 10 mg oral tablet 10 mg=1 tab, PO, Daily, # 7 tab, 0 Refill(s) Start Date: 07/27/14 Stop Date: 07/30/14 Status: OrderedProbiotic Formula oral capsule 1 cap, PO, Daily, 0 Refill(s) Start Date: 07/27/14 Status: Orderedpromethazine 12.5 mg, 0.5 mL, Route: IVPB, Drug form: INJ, ONCE, Dosing Weight 74.29, kg, PRN Nausea & Vomiting, Start date: 07/30/14 12:53:00 Notes: Do not give IV push. (Same as: Phenergan) Start Date: 07/30/14 Stop Date: 07/30/14 Status: CompletedProtonix 40 mg, 1 tab, Route: PO, Drug form: ECTAB, Daily, Dosing Weight 74.29, kg, Start date: 07/29/14 9:00:00, Duration: 30 day, Stop date: 08/27/14 9:00:00 Notes: Tablet should not be chewed or crushed.(Same as: Protonix) Start Date: 07/29/14 Stop Date: 08/04/14 Status: DiscontinuedRanexa 500 mg, 1 tab, Route: PO, Drug form: TAB, BID, Dosing Weight 74.29, kg, Start date: 07/29/14 17:00:00, Duration: 30 day, Stop date: 08/28/14 9:00:00 Notes: Same as Ranexa"Do Not Crush" Start Date: 07/29/14 Stop Date: 08/04/14 Status: Discontinuedranolazine 500 mg oral tablet, extended release 500 mg=1 tab, PO, BID, # 30 tab, 0 Refill(s) Start Date: 08/04/14 Status: Orderedremove patch 1 patch, Route: TOP, Drug form: ERFILM, Daily, Start date: 07/30/14 23:00:00, Duration: 30 day, Stopdate: 08/28/14 23:00:00 Notes: Remove from 11 pm to 9 am daily for 10 hour nitrate free period. ( Verify Patient has not taken Viagra, Cialis or Levitra in last 24 hours; if taken, hold NTG and notify MD.) Start Date: 07/30/14 Stop Date: 08/04/14 Status: Discontinuedsodium phosphate + Sodium Chloride 0.9% IV 250 mL 30 mmol, 10 mL, Route: IVPB, PRN, Dosing Weight 74.29, kg, PRN Abnormal Lab Result, For NON-ICU Patients Only., Start date: 07/31/14 6:15:00, Duration: 30 day, Stop date: 08/30/14 6:14:00 Start Date: 07/31/14 Stop Date: 08/04/14 Status: Discontinuedsodium phosphate + Sodium Chloride 0.9% IV 250 mL 15 mmol, 5 mL, Route: IVPB, PRN, Dosing Weight 74.29, kg, PRN Abnormal Lab Result, For NON-ICU Patients Only., Start date: 07/31/14 6:15:00, Duration: 30 day, Stop date: 08/30/14 6:14:00 Start Date: 07/31/14 Stop Date: 08/04/14 Status: Discontinuedsodium phosphate + Sodium Chloride 0.9% IV 250 mL 15 mmol, 5 mL, Route: IVPB, ONCE, Dosing Weight 74.29, kg, Start date: 08/01/14 7:27:00, Stop date: 08/01/14 7:27:00 Start Date: 08/01/14 Stop Date: 08/01/14 Status: CompletedSpiriva 18 mcg inhalation capsule 18 microgram, 1 inhalation, Route: INHALATION, Drug form: CAP, Daily, Dosing Weight 74.29, kg, Startdate: 07/28/14 9:00:00, Duration: 30 day, Stop date: 9:00:00 Notes: (Same As: Spiriva). Start Date: 07/28/14 Stop Date: 08/04/14 Status: DiscontinuedSpiriva 18 mcg inhalation capsule 18 microgram=1 cap, INHALATION, Daily, Use two inhalations of one capsule for each dose, # 30 cap, 1Refill(s) Special Instructions: Use two inhalations of one capsule for each dose Start Date: 07/27/14 Status: Orderedvancomycin (SCIP) 1.5 gm, Route: IVPB, Drug form: INJ, ONCE, Dosing Weight 74.29, kg, Start date: 07/30/14 9:17:00, Stop date: 07/30/14 9:17:00 Start Date: 07/30/14 Stop Date: 07/30/14 Status: CompletedVitamin C 500 mg oral capsule 1,000 mg=2 cap, PO, Daily, # 30 cap, 0 Refill(s) Start Date: 07/27/14 Status: OrderedVitamin D3 400 intl units oral capsule 400 IntlUnit=1 cap, PO, Daily, 0 Refill(s) Start Date: 07/27/14 Status: Orderedvitamin E 200 intl units oral tablet =1 tab, PO, Daily, # 14 tab, 0 Refill(s) Start Date: 07/27/14 Stop Date: 08/10/14 Status: OrderedXopenex 0.63 mg, 3 mL, Route: NEB, Drug form: SOLN, RQ8H, Dosing Weight 74.29, kg, Start date: 07/27/14 23:00:00, Duration: 30 day, Stop date: 08/26/14 15:00:00, Substitute Allowed No Notes: SEE RT DOCUMENTATION (Same as:Xopenex)Non-Formulary Start Date: 07/27/14 Stop Date: 08/04/14 Status: DiscontinuedXopenex 0.63 mg, 3 mL, Route: NEB, Drug form: SOLN, PRN, Dosing Weight 74.29, kg, PRN Respiratory Protocol, Start date: 07/27/14 18:23:00, Duration: 30 day, Stop date : 08/26/14 18:22:00, Substitute Allowed No Notes: SEE RT DOCUMENTATION (Same as:Xopenex)Non-Formulary Start Date: 07/27/14 Stop Date: 08/04/14 Status: DiscontinuedZofran 4 mg, 2 mL, Route: IVP, Drug form: INJ, ONCE, Dosing Weight 74.29, kg, Start date: 07/30/14 6:59:00,Stop date: 07/30/14 6:59:00 Notes: (Same as: Zofran) MEDICATION WASTE Product Size: 4 mgProduct Wasted: ___ mg Start Date: 07/30/14 Stop Date: 07/30/14 Status: CompletedZofran 4 mg, 2 mL, Route: IVP, Drug form: INJ, ONCE, Dosing Weight 74.29, kg, Start date: 08/01/14 9:14:00,Stop date: 08/01/14 9:14:00 Notes: (Same as: Zofran) MEDICATION WASTE Product Size: 4 mgProduct Wasted: __0_ mg Start Date: 08/01/14 Stop Date: 08/01/14 Status: Completed Results BLOOD BANK RESULTS Most recent to oldest [Reference Range]: 1 2 3 ABO/Rh A POS *Unknown* (07/29/14 3:21 PM) Antibody Scrn Negative (07/29/14 3:21 PM) FFP product Product available Product available (07/30/14 9:17 AM) (07/30/14 4:00 AM) Platelet product Product available (07/30/14 4:00 AM) RBC product Product available Product available (07/30/14 9:17 AM) (07/30/14 4:00 AM) ELECTROLYTES Most recent to oldest 1 2 3 [Reference Range]: Sodium Lvl [135-145 mEq/L] 139 mEq/L 142 mEq/L 143 mEq/L (08/04/14 4:15 AM) (08/03/14 4:30 AM) (08/02/14 1:30 AM) Potassium Lvl [3.5-5.1 4.2 mEq/L 4.2 mEq/L 4.0 mEq/L mEq/L] (08/04/14 4:15 AM) (08/03/14 4:30 AM) (08/02/14 1:30 AM) Chloride Lvl [95-109 mEq/L] 103 mEq/L 107 mEq/L 109 mEq/L (08/04/14 4:15 AM) (08/03/14 4:30 AM) (08/02/14 1:30 AM) CO2 [24-32 mEq/L] 29 mEq/L 28 mEq/L 25 mEq/L (08/04/14 4:15 AM) (08/03/14 4:30 AM) (08/02/14 1:30 AM) AGAP [10.0-20.0 mEq/L] 11.2 mEq/L 11.2 mEq/L 13.0 mEq/L (08/04/14 4:15 AM) (08/03/14 4:30 AM) (08/02/14 1:30 AM) CHEM PANEL Most recent to oldest 1 2 3 [Reference Range]: Creatinine Lvl [0.5-1.4 1.4 mg/dL 1.2 mg/dL 1.2 mg/dL mg/dL] (08/04/14 4:15 AM) (08/03/14 4:30 AM) (08/02/14 1:30 AM) eGFR 35 mL/min/1.73m2 1 42 mL/min/1.73m2 2 42 mL/min/1.73m2 3 *NA* *NA* *NA* (08/04/14 4:15 AM) (08/03/14 4:30 AM) (08/02/14 1:30 AM) BUN [7-22 mg/dL] 14 mg/dL 11 mg/dL 11 mg/dL (08/04/14 4:15 AM) (08/03/14 4:30 AM) (08/02/14 1:30 AM) B/C Ratio [6-25] 16 (07/27/14 3:25 PM) Glucose Lvl [70-99 mg/dL] 196 mg/dL 4 180 mg/dL 5 171 mg/dL 6 *HI* *HI* *HI* (08/04/14 4:15 AM) (08/03/14 4:30 AM) (08/02/14 1:30 AM) Uric Acid [2.5-7.0 mg/dL] 3.6 mg/dL (07/29/14 3:21 PM) Total Protein [6.4-8.4 g/dL] 5.7 g/dL 6.2 g/dL 6.0 g/dL *LOW* *LOW* *LOW* (08/04/14 4:15 AM) (07/30/14 5:15 AM) (07/27/14 3:25 PM) Albumin Lvl [3.5-5.0 g/dL] 2.4 g/dL 3.1 g/dL 3.2 g/dL *LOW* *LOW* *LOW* (08/04/14 4:15 AM) (07/30/14 5:15 AM) (07/27/14 3:25 PM) Globulin [2.0-4.0 g/dL] 3.3 g/dL 3.1 g/dL 2.8 g/dL (08/04/14 4:15 AM) (07/30/14 5:15 AM) (07/27/14 3:25 PM) A/G Ratio [0.7-1.6] 0.7 1.0 1.1 (08/04/14 4:15 AM) (07/30/14 5:15 AM) (07/27/14 3:25 PM) Calcium Lvl [8.5-10.5 mg/dL] 9.0 mg/dL 8.4 mg/dL 7.7 mg/dL (08/04/14 4:15 AM) *LOW* *LOW* (08/03/14 4:30 AM) (08/02/14 1:30 AM) Phosphorus [2.5-4.5 mg/dL] 3.1 mg/dL 2.7 mg/dL 1.8 mg/dL (08/04/14 4:15 AM) (08/03/14 4:30 AM) *LOW* (08/02/14 1:30 AM) Magnesium Lvl [1.8-2.4 1.9 mg/dL 1.9 mg/dL 1.9 mg/dL mg/dL] (08/04/14 4:15 AM) (08/03/14 4:30 AM) (08/02/14 1:30 AM) ALT [0-65 unit/L] 18 unit/L 20 unit/L 21 unit/L (08/04/14 4:15 AM) (07/30/14 5:15 AM) (07/27/14 3:25 PM) AST [0-37 unit/L] 12 unit/L 43 unit/L 25 unit/L (08/04/14 4:15 AM) *HI* (07/27/14 3:25 PM) (07/30/14 5:15 AM) Alk Phos [39-136 unit/L] 38 unit/L 40 unit/L 41 unit/L *LOW* (07/30/14 5:15 AM) (07/27/14 3:25 PM) (08/04/14 4:15 AM) Bili Total [0.2-1.3 mg/dL] 0.6 mg/dL 0.5 mg/dL 0.5 mg/dL (08/04/14 4:15 AM) (07/30/14 5:15 AM) (07/27/14 3:25 PM) Bili Direct [0.0-0.3 mg/dL] 0.2 mg/dL 0.1 mg/dL (08/04/14 4:15 AM) (07/30/14 5:15 AM) Bili Indirect [0.0-1.0 0.4 mg/dL 0.4 mg/dL mg/dL] (08/04/14 4:15 AM) (07/30/14 5:15 AM) 1Result Comment: The eGFR is calculated using the CKD-EPI formula. In most young , healthy individualsthe eGFR will be >90 mL/min/1.73m2. The eGFR declines with age. An eGFR of 60-89 may be normal in some populations, particularly the elderly, for whom the CKD-EPI formula has not been extensively validated. Use of the eGFR is not recommended in the following populations: Individuals with unstable creatinine concentrations, including patients and those with serious co-morbid conditions. Patients with extremes in muscle mass or diet. The data above are obtained from the National Kidney Disease Education Program ( NK[employer]) which additionally recommends that when the eGFR is used in patients with extremes of body mass index for purposesof drug dosing, the eGFR should be multiplied by the estimated BMI.2Result Comment: The eGFR is calculated using the CKD-EPI formula. In most young, healthy individualsthe eGFR will be >90 mL/ min/1.73m2. The eGFR declines with age. An eGFR of 60-89 may be normal in some populations, particularly the elderly, for whom the CKD-EPI formula has not been extensively validated. Use of the eGFR is not recommended in the following populations: Individuals with unstable creatinine concentrations, including patients and those with serious co-morbid conditions. Patients with extremes in muscle mass or diet. The data above are obtained from the National Kid[employer] Disease Education Program ( NK[employer]) which additionally recommends that when the eGFR is used in patients with extremes of body mass index for purposesof drug dosing, the eGFR should be multiplied by the estimated BMI.3Result Comment: The eGFR is calculated using the CKD-EPI formula. In most young, healthy individualsthe eGFR will be >90 mL/ min/1.73m2. The eGFR declines with age. An eGFR of 60-89 may be normal in some populations, particularly the elderly, for whom the CKD-EPI formula has not been extensively validated. Use of the eGFR is not recommended in the following populations: Individuals with unstable creatinine concentrations, including patients and those with serious co-morbid conditions. Patients with extremes in muscle mass or diet. The data above are obtained from the National Kid[employer] Disease Education Program ( [employer]) which additionally recommends that when the eGFR is used in patients with extremes of body mass index for purposesof drug dosing, the eGFR should be multiplied by the estimated BMI.4Interpretive Data: Adult reference range values reflect the clinical guidelines of the [place] [employer].5Interpretive Data: Adult reference range values reflect the clinical guidelines of the [place] [employer].6Interpretive Data: Adult reference range values reflect the clinical guidelines of the [place] [employer].CARDIAC ENZYMES Most recent to oldest [Reference Range]: 1 2 3 proBNP [0-450 pg/mL] 1385 pg/mL 1634 pg/mL *HI* *HI* (07/31/14 4:03 AM) (07/29/14 2:52 AM) LIPIDS Most recent to oldest [Reference Range]: 1 2 3 CHD Risk [3.90-5.80] 3.47 *LOW* (07/30/14 5:15 AM) Chol [<=199 mg/dL] 191 mg/dL (07/30/14 5:15 AM) Trig [<=149 mg/dL] 369 mg/dL *HI* (07/30/14 5:15 AM) HDL [>=61 mg/dL] 55 mg/dL *LOW* (07/30/14 5:15 AM) LDL (Calculated) [<=99 mg/dL] 62 mg/dL (07/30/14 5:15 AM) VLDL 74 *NA* (07/30/14 5:15 AM) SPECIAL CHEMISTRY Most recent to oldest [Reference Range]: 1 2 3 Hgb A1C [<=5.6 %] 8.1 % *HI* (07/28/14 4:13 AM) PARATHYROID PROFILE Most recent to oldest 1 2 3 [Reference Range]: Ca Ion WB [1.05-1.25 mMol/L] 1.17 mMol/L 1.14 mMol/L 1.11 mMol/L (08/04/14 4:15 AM) (08/03/14 4:30 AM) (08/02/14 1:30 AM) Ca Norm WB [1.05-1.25 1.18 mMol/L 1.14 mMol/L 1.14 mMol/L mMol/L] (08/04/14 4:15 AM) (08/03/14 4:30 AM) (08/02/14 1:30 AM) PTH Intact [11.1-79.5 pg/mL] 66.8 pg/mL (07/29/14 3:21 PM) URINE AND STOOL Most recent to oldest [Reference Range]: 1 2 3 UA Turbidity [Clear] Clear (07/28/14 1:10 PM) UA Color [Yellow] Light Yellow *NA* (07/28/14 1:10 PM) UA pH [5.0-8.0] 6.0 (07/28/14 1:10 PM) UA Spec Grav [<=1.030] 1.006 (07/28/14 1:10 PM) UA Glucose [Negative mg/dL] 200 mg/dL *ABN* (07/28/14 1:10 PM) UA Blood [Negative] Negative (07/28/14 1:10 PM) UA Ketones [Negative mg/dL] Negative mg/dL *NA* (07/28/14 1:10 PM) UA Protein [Negative mg/dL] Negative mg/dL (07/28/14 1:10 PM) UA Urobilinogen [0.1-1.0 mg/dL] <=1.0 mg/dL *NA* (07/28/14 1:10 PM) UA Bili [Negative] Negative *NA* (07/28/14 1:10 PM) UA Leuk Est [Negative] Negative (07/28/14 1:10 PM) UA Nitrite [Negative] Negative (07/28/14 1:10 PM) UA Sq Epi [Few /LPF] Occasional /LPF *NA* (07/28/14 1:10 PM) IMMUNOLOGY Most recent to oldest [Reference Range]: 1 2 3 C3 Complement [88-201 mg/dL] 99 mg/dL (07/29/14 3:21 PM) C4 Complement [16-47 mg/dL] 25 mg/dL (07/29/14 3:21 PM) HEMATOLOGY Most recent to oldest 1 2 3 [Reference Range]: WBC [3.7-10.4 K/CMM] 7.1 K/CMM 7.6 K/CMM 9.7 K/CMM (08/04/14 4:15 AM) (08/03/14 4:30 AM) (08/02/14 1:30 AM) RBC [4.20-5.40 M/CMM] 2.87 M/CMM 2.64 M/CMM 2.74 M/CMM *LOW* *LOW* *LOW* (08/04/14 4:15 AM) (08/03/14 4:30 AM) (08/02/14 1:30 AM) Hgb [12.0-16.0 g/dL] 9.0 g/dL 8.3 g/dL 8.6 g/dL *LOW* *LOW* *LOW* (08/04/14 4:15 AM) (08/03/14 4:30 AM) (08/02/14 1:30 AM) Hct [36.0-48.0 %] 26.8 % 24.7 % 25.8 % *LOW* *LOW* *LOW* (08/04/14 4:15 AM) (08/03/14 4:30 AM) (08/02/14 1:30 AM) MCV [80.0-98.0 fL] 93.6 fL 93.5 fL 93.9 fL (08/04/14 4:15 AM) (08/03/14 4:30 AM) (08/02/14 1:30 AM) MCH [27.0-31.0 pg] 31.4 pg 31.6 pg 31.3 pg *HI* *HI* *HI* (08/04/14:15 AM) (08/03/14 4:30 AM) (08/02/14 1:30 AM) MCHC [32.0-36.0 g/dL] 33.6 g/dL 33.8 g/dL 33.3 g/dL (08/04/14 4:15 AM) (08/03/14 4:30 AM) (08/02/14 1:30 AM) RDW [11.5-14.5 %] 13.9 % 13.5 % 13.7 % (08/04/14 4:15 AM) (08/03/14 4:30 AM) (08/02/14 1:30 AM) Platelet [133-450 K/CMM] 156 K/CMM 113 K/CMM 101 K/CMM (08/04/14 4:15 AM) *LOW* *LOW* (08/03/14 4:30 AM) (08/02/14 1:30 AM) MPV [7.4-10.4 fL] 8.0 fL 8.0 fL 8.0 fL (08/04/14 4:15 AM) (08/03/14 4:30 AM) (08/02/14 1:30 AM) Segs [45.0-75.0 %] 53.7 % 56.7 % 65.9 % (08/04/14 4:15 AM) (08/03/14 4:30 AM) (08/02/14 1:30 AM) Lymphocytes [20.0-40.0 %] 30.8 % 29.0 % 23.7 % (08/04/14 4:15 AM) (08/03/14 4:30 AM) (08/02/14 1:30 AM) Monocytes [2.0-12.0 %] 9.9 % 9.1 % 7.6 % (08/04/14 4:15 AM) (08/03/14 4:30 AM) (08/02/14 1:30 AM) Eosinophils [0.0-4.0 %] 5.0 % 4.4 % 2.6 % *HI* *HI* (08/02/14 1:30 AM) (08/04/14 4:15 AM) (08/03/14 4:30 AM) Basophils [0.0-1.0 %] 0.6 % 0.8 % 0.2 % (08/04/14 4:15 AM) (08/03/14 4:30 AM) (08/02/14 1:30 AM) Segs-Bands # [1.5-8.1 K/CMM] 3.8 K/CMM 4.3 K/CMM 6.4 K/CMM (08/04/14 4:15 AM) (08/03/14 4:30 AM) (08/02/14 1:30 AM) Lymphocytes # [1.0-5.5 2.2 K/CMM 2.2 K/CMM 2.3 K/CMM K/CMM] (08/04/14 4:15 AM) (08/03/14 4:30 AM) (08/02/14 1:30 AM) Monocytes # [0.0-0.8 K/CMM] 0.7 K/CMM 0.7 K/CMM 0.7 K/CMM (08/04/14 4:15 AM) (08/03/14 4:30 AM) (08/02/14 1:30 AM) Eosinophils # [0.0-0.5 0.4 K/CMM 0.3 K/CMM 0.3 K/CMM K/CMM] (08/04/14 4:15 AM) (08/03/14 4:30 AM) (08/02/14 1:30 AM) Basophils # [0.0-0.2 K/CMM] 0.1 K/CMM 0.1 K/CMM 0.1 K/CMM (08/03/14 4:30 AM) (07/31/14 4:03 AM) (07/30/14 5:15 AM) PT [12.0-14.7 seconds] 13.3 seconds 13.7 seconds (07/29/14 3:21 PM) (07/27/14 3:25 PM) INR [0.85-1.17] 1.01 7 1.05 8 (07/29/14 3:21 PM) (07/27/14 3:25 PM) PTT [22.9-35.8 seconds] 25.8 seconds 9 27.7 seconds 10 (07/29/14 3:21 PM) (07/27/14 3:25 PM) 7Interpretive Data: RECOMMENDED RANGES FOR PROTIME INR: 2.0-3.0 for most medical and surgical thromboembolic states. 2.5-3.5 for artificial heart valves and recurrent embolism. INR SHOULD BE USED ONLY FOR PATIENTS ON STABLE ANTICOAGULANT THERAPY.8Interpretive Data: RECOMMENDED RANGES FOR PROTIME INR: 2.0-3.0 for most medical and surgical thromboembolic states. 2.5-3.5 for artificial heart valves and recurrent embolism. INR SHOULD BE USED ONLY FOR PATIENTS ON STABLE ANTICOAGULANT THERAPY.9Interpretive Data: Heparin Therapeutic Range: 57 - 92 [id number] Data: Heparin Therapeutic Range: 57 - 92 SecondsMOLECULAR DIAGNOSTIC Most recent to oldest [Reference Range]: 1 2 3 C difficile DNA [Negative] Negative 11 (07/31/14 3:20 PM) 11Interpretive Data: [employer] Clostridium difficile assay utilizes loop-mediated isothermalDNA amplification (LAMP) technology to detect a 204 bp region of the tcdA gene within the PaLoc genesegment present in all known toxigenic C. difficile strains. The assay utilizes FDA cleared IVD reagents. Performance characteristics have been verified by the [facility] within the [facility]. The [facility] is authorized under the Clinical Laboratory Improvement Amendment of 1988 (CLIA-88) to perform highcomplexity testing. Immunizations No data available for this section Procedures Procedure Date Related Diagnosis Body Site CABG x 3 - Coronary artery bypass grafts x 3 07/16/99 Cholecystectomy 02/14/73 Bladder operation 02/14/53 Social History Social History Type Response Smoking Status Former smoker; Type: Cigarettes; Started at age: 23.0; Stopped at age: 69; Previous treatment: None; Exposure to Tobacco Smoke None; Cigarette Smoking Last 365 Days Yes; Reg Smoking Cessation Counseling No Assessment and Plan Extracted from: Title: cardiology progress note Author: RoberBasilKenna Date: 08/04/14 Impression and Plan . This is an 84-year-old female with a past medical history of infrarenal abdominal aortic aneurysm that had been diagnosed since 2010 and that was being followed by Dr. Kg Doss , with last evaluation on 12/30/2011 in clinic, where the patient was noted to have a growth of her aneurysm from 4.7 cm to 5.2 cm with recommendations for endovascular repair at that time, but patient did not opt to have Sx.Now patient presents with pain with radiation to the abdomen that was consistent for most of the night, she decided to call 911 and was brought to [facility], where she w as evaluated with a CT scan with findings of infrarenal abdominal aortic aneurysm that had enlarged to approximately 8 cm. Patient was life-flighted [facility] for higher level of care. 1. IFR AAA: - S/P EVAR on 07/30 - hemodynamically stable - CV Sx following 2. CAD/ S/P MO/S/P CABG in 1999: - Appears to be stable - On Bisoprolol 2/2 wheezing. Continue fenofibrate. 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 -- Last stress test in ( ) Jan 2013, Last [facility] 2009, report in chart. She was noted to have patent ROBLES graft to LAD and SVG to RCA, closed SVG to OM by cath in 2009. Along with decrease in L VEF even earlier this year, it is very possible that RCA graft is occluded. Stress test from Jan 2013 showed no ischemia but scar -- Pt should follow-up with Dr. Gomez post discharge 3. Chronic systolic heart failure, EF 35% -Dyspnea improved. could have beeen multifactorial, patient with h/o COPD/ Emphysema - Continue with Lasix 20mg PO daily, patient reports that she was on lisinopril in the past but she became very hypotensive with the medication and discontinued -- Strict I/O and daily weight checking -- negative 4.3 liter fluid balance 4. ICMP/ S/P AICD palcement in 2003/ AICD with lead fracture: - Patient preferred to have no intervention done for the fractured lead - Stopped following up with EP- Dr. Kent 5. Hypertension: - Fairly controlled, on bisoprolol 6. Hyperlipidemia: - On fenofibrate, unable to tolerate statins, LDL:62, TGL: 369 - LFT unremarkable 7. Diabetes Mellitus- 2: - HgBA1C: 8.1 - FSBS checks and on scheduled and SSC insulin -Management per primary team 7. COPD/Emphysema: - On Spiriva and oral steroids - Reports recent episode of acute bronchitis, was on oral steroids at home - HIT team following 8. Leuckocytosis: - Afebrile, most probably 2/2 steroids - Monitor 9. GI/DVT prophylaxis: - PPI/ SQ Lovenox. Pt seen and evaluated with Dr. Harsha Richter, ALEJANDRO, ACNP- Department of Cardiology MSO# [id number] Pager# [phone] Extracted from: Title: Endocrine Consult Note Author: Ramiro Leone MD Date: 07/31/14 Endocrine Consult Note: Patient Room: [address] [facility] SUSANA WHITLOCK 84y (: 1930) F Attending: Ozzie Doss MD Service: Thoracic /Cardiac [facility] DATE OF CONSULT: 07/31/2014 REFERRING PHYSICIAN: Dr. Doss CONSULTING PHYSICIAN: Dr. Tsai REASON FOR CONSULTATION: Diabetes mangement HISTORY OF PRESENT ILLNESS: Ms. Whitlock is a 84 year-old woman with a history of IDDM, CHF, COPD and AAA who is admitted for repair of an expanding abdominal aortic aneurysm. She underwent EVAR on 07/30 with an uneventful postopera tive course. Her blood glucose was initially managed in house by continuing her home regimen of 70/30 with several episodes of relative hypoglycemia. Post- op she has been managed with a sliding scale only with resultant hyperglycemia. She reports being diagnosed with diabetes greater than 20 years ago. Was initially on oral therapy but on insulin for approximately one year. Did not tolerate levemir as it gave her worsening "swollen e rythematous lumps" at her injection sites. Currently on a regimen of 70/30 insulin 36 units once daily in thye morning as well as glimepiride 4mg bid. She experiences episodes of symptomatic hypoglycemi a approximately once weekly at home on this regimen. Her diabetes is managed by her primary care physician as there are no endocrinologists where she lives. She checks her blood sugars at home twice mariano ly and the result is usually ~100-120. She is chronically on 5mg prednisone for her COPD and takes short tapers of higher doses of steroids about 2-3 times per year during which her blood sugars are nikki d to control. She was recently on such a steroid taper for bronchitis. PAST MEDICAL HISTORY: DM type II complicated by neuropathy COPD on home oxygen and chronic low dose prednisone CAD s/p PCI and CABG Systolic heart failure Hypertension AAA Prior tobacco abuse PAST SURGICAL HISTORY: CABG AICD placement Cholecystectomy Bladder suspension SOCIAL HISTORY: 20 pack/year smoker, quit in 1999. Denies alcohol or drug use. Lives in [place], [place] and has limited transportation to nearest major city which would be [place]. FAMILY HISTORY: Coronary heart disease Allergies (3) Active Reaction Adhesive Tape None documented codeine None documented penicillins None documented Medications (51) Active Scheduled Meds (20): 07/29/14 acetylcysteine (Mucomyst oral solution (mg)) 600 mg PO Q12H 07/30/14 bisoprolol 5 mg PO Daily 07/27/14 enoxaparin 40 mg SUB-Q [id number] 07/27/14 fenofibrate (fenofibrate 145 mg oral tablet) 145 mg PO Dinner 07/28/14 fluticasone nasal (fluticasone nasal 0.05 mg/inh spray) 2 spray NASAL Daily 07/28/14 furosemide (furosemide 20 mg oral tablet) 20 mg PO Daily 07/30/14 (Suspended) insulin aspart-insulin aspart protamine (NovoLOG 70/30) 36 unit SUB-Q Breakfast 07/30/14 (Suspended) insulin aspart-insulin aspart protamine (NovoLOG 70/30) 36 unit SUB-Q Breakfast 07/31/14 insulin aspart 5 unit SUB-Q TID-Before Meals 07/31/14 insulin glargine 15 unit SUB-Q Daily 07/27/14 levalbuterol (Xopenex) 0.63 mg NEB RQ8H 07/28/14 loratadine 10 mg PO Daily 07/30/14 nitroglycerin (nitroglycerin 0.2 mg/hr transdermal film) 1 patch TOP Daily 07/28/14 omega-3 polyunsaturated fatty acids (Fish Oil) 1,000 mg PO Daily 07/29/14 pantoprazole (Protonix) 40 mg PO Daily 07/28/14 potassium chloride (potassium chloride 10 mEq oral tablet, extended release) 10 mEq PO Daily 07/30/14 predniSONE 5 mg PO Daily 07/29/14 ranolazine (Ranexa) 500 mg PO BID 07/30/14 remove patch 1 patch TOP Daily 07/28/14 tiotropium (Spiriva 18 mcg inhalation capsule) 18 microgram INHALATION Daily Unscheduled Meds: None PRN Meds (26): 07/27/14 Dextrose 50% in Water IV (Dextrose 50% Syringe) 12.5 gm IVP PRN 07/27/14 Dextrose 50% in Water IV (Dextrose 50% Syringe) 25 gm IVP PRN 07/27/14 acetaminophen 650 mg PO Q4H 07/31/14 calcium gluconate + Sodium Chloride 0.9% IV 100 mL 2 gm IVPB PRN 120 ml/hr 07/31/14 calcium gluconate + Sodium Chloride 0.9% IV 100 mL 3 gm IVPB PRN 130 ml/hr 07/27/14 docusate 100 mg PO BID 07/27/14 glucagon 1 mg IM PRN 07/27/14 hydrALAZINE 10 mg IV Q4H 07/31/14 insulin aspart 1 unit SUB-Q TID-Before Meals 07/31/14 insulin aspart 2 unit SUB-Q TID-Before Meals 07/31/14 insulin aspart 3 unit SUB-Q TID-Before Meals 07/31/14 insulin aspart 4 unit SUB-Q TID-Before Meals 07/31/14 insulin aspart 5 unit SUB-Q TID-Before Meals 07/27/14 levalbuterol (Xopenex) 0.63 mg NEB PRN 07/31/14 magnesium oxide 800 mg PO PRN 07/31/14 magnesium sulfate 1 gm IVPB PRN 100 ml/hr 07/31/14 magnesium sulfate 2 gm IVPB PRN 25 ml/hr 07/30/14 ondansetron 4 mg IV Q8H 07/31/14 potassium chloride 20 mEq PO PRN 07/31/14 potassium chloride 20 mEq [place] PRN 07/31/14 potassium chloride 10 mEq IVPB PRN 50 ml/hr 07/31/14 potassium phosphate + Sodium Chloride 0.9% IV 250 mL 15 mmol IVPB PRN 63.75 ml/hr 07/31/14 potassium phosphate + Sodium Chloride 0.9% IV 250 mL 30 mmol IVPB PRN 65 ml/hr 07/31/14 potassium phosphate-sodium phosphate (potassium phosphate-sodium phosphate 250 mg-278 mg-164 mg oral powder) 2 pkt PO PRN 07/31/14 sodium phosphate + Sodium Chloride 0.9% IV 250 mL 15 mmol IVPB PRN 63.75 ml/hr 07/31/14 sodium phosphate + Sodium Chloride 0.9% IV 250 mL 30 mmol IVPB PRN 65 ml/hr One Time Meds (4): 07/30/14 (Discontinued) Dextrose 50% in Water IV (Dextrose 50% Syringe) 12.5 gm IVP ONCE 07/31/14 (Completed) ketOROLAC (ketOROLAC 15 mg/mL injectable solution) 15 mg IV ONCE 07/30/14 (Completed) ondansetron (Zofran) 4 mg IVP ONCE 07/30/14 (Completed) vancomycin (vancomycin (SCIP)) 1.5 gm IVPB ONCE Continuous Infusions (1): 07/31/14 Sodium Chloride 0.9% IV 1,000 mL (NS 1,000 mL) 1,000 mL 60 ml/hr REVIEW OF SYSTEMS: Constitutional: Denies fevers, chills Neuro: Denies headaches, parasthesias Eyes: Denies diplopia, blurry vision ENT: Denies sore throat, dysphagia CV: Denies chest pain, palpitations Pulm: Positive for chronic limiting dyspnea GI: Denies abdominal pain, nausea : Denies hematuria, dysuria Musk: Denies joint pain, myalgia Heme: Denies bleeding, bruising Endo: Denies polydipsia, polyuria, heat/cold intolerance Skin: Denies rash, pruritis Psych: Denies depression, anxiety PHYSICAL EXAMINATION: Vital Signs - Reviewed Vitals Tmp(F) Pulse BP RR SpO2 FIO2 07/31 12:00 96.8 80 92/39 -- --- --- 07/31 11:00 ---- 74 111/75 -- --- --- 07/31 10:30 ---- 72 ----- -- --- --- 07/31 10:00 ---- 72 ----- -- --- --- 07/31 09:55 ---- --- ----- -- 98 2.0L/m 24 Hr Tmax: 100.7F (38.17c) at 07/31 04:00 Vital Signs are the last 5 in the past 48 hours. Date Wt(kg) Wt(lb) Ht(cm) Ht(in) Method 07/28 74.09 163.00 Measured 07/27 (initial) 74.29 163.44 Measured 07/27 162.56 64.00 Stated General- Alert and oriented, no distress HEENT- Sclerae anicteric, oropharynx clear CVS- Regular rate and rhythm Chest- Normal respiratory effort, distant breath sounds Abdomen- Soft, nontender Extremities- Trace pitting edema bilaterally Skin- No lesions Neuro- Cranial nerves intact, strength and sensation intact DATA: 24hr Labs 07/31 1123 Glucose POC 302 H 07/31 0629 Glucose POC 183 H 07/31 0628 Ca Ion WB 1.04 L Ca Norm WB 1.01 L 07/31 0403 Magnesium Lvl 1.9 Phosphorus 2.2 L Glucose Lvl 203 H BUN 13 Creatinine Lvl 1.3 Sodium Lvl 141 Potassium Lvl 4.3 Chloride Lvl 106 CO2 24 AGAP 15.3 Calcium Lvl 7.3 L eGFR 38 proBNP 1385 H WBC 9.7 RBC 3.04 L Hgb 9.6 L Hct 28.7 L MCV 94.5 MCH 31.5 H MCHC 33.3 RDW 13.8 Platelet 119 L MPV 8.2 Segs 54.9 Monocytes 12.2 H Lymphocytes 29.6 Eosinophils 2.7 Basophils 0.6 Segs-Bands # 5.3 Lymphocytes # 2.9 Monocytes # 1.2 H Eosinophils # 0.3 Basophils # 0.1 07/31 0141 Glucose POC 162 H 07/30 2018 Glucose POC 226 H 07/30 1745 Glucose POC 99 07/30 1622 Glucose POC 122 H 07/30 0701 Glucose POC 180 H ASSESSMENT: Diabetes mellitus type II, poorly controlled Hypoglycemia Renal insufficiency Abdominal aortic aneurysm s/p endovascular repair Chronic systolic heart failure, ischemic COPD on home oxygen and chronic prednisone PLAN: Would discontinue 70/30 insulin in favor of a long acting basal insulin with premeal correction--glargine 15 units daily plus premeal aspart 5 units TID with low dose sliding scale. Would not restart gl imepiride. We will aim to adjust this regimen to one that she can continue as an outpatient as well as arrange for endocrine follow-up. Endocrine Service Teaching Note: I have interviewed and examined the patient. I have reviewed the pertinent labs, notes, and data (including [place] [id number] logs). I have reviewed the resident/fellow's note dated 07/31/2014, and agree with the clinical findings, assessment, and plan. I have discussed the case with Drs. Tanner/Vasu/Lori and the endocrine team. I have also discussed the case with the primary team. Thank you for a llowing us to participate in the patient's care. Endocrine service consulted for assistance and management of uncontrolled T2DM in setting of hypoglycemia, AAA s/p repair, heart failure, and COPD on ch ronic prednisone. She has limited access to endocrine, and has been taking insulin 70/30 at 36 units once daily + glimepiride 4 mg twice daily, with several episodes of hypoglycemia on this regimen. A t this time, will discontinue insulin regimen in favor of once daily glargine ( would prefer detemir once daily, however, patient refuses this insulin due to injection issues from the past) + premeal asp art + sliding scale. Discontinue sulfonylurea in elderly patient with renal insufficiency. Will need DM education and nutritional referral. Glucose log reviewed in [facility], and fingersticks ordered AC+ HS. External records requested/reviewed. Case reviewed with primary team. 24 Hr Point of Care Glucoses 07/31 1649 Glucose POC 204 H 07/31 1453 Glucose POC 216 H 07/31 1123 Glucose POC 302 H 07/31 0629 Glucose POC 183 H 07/31 0141 Glucose POC 162 H 07/30 2018 Glucose POC 226 H 07/30 0701 Glucose POC 180 H --- Dhruv Tsai MD [place] [facility] MSO # [id number]
[2017-09-29 11:36] LABS: Arterial Blood Carboxyhemoglob 1.1 % (0-1.5); Blood Gas Oxyhemoglobin 89.8 % (94-97); Blood O2 Saturation 92.1 % (92-98.5)
--- NOTE | 2017-09-29 11:37 | EKG ---
Test Date: 2017-09-29 Test Time: 10:57:58 Director Of Staff Development: MARIOLA MEASUREMENT RESULTS: Intervals: Rate: 104 OR: 128 QRSD: 136 QT: 322 QTc: 423 Fisher: P: 26 OR: 128 QRS: 23 T: 189 INTERPRETIVE STATEMENTS: Sinus tachycardia with premature atrial complexes Left bundle branch block Abnormal ECG Compared to ECG 09/15/2017 00:45:50 no significant change from previous ECG Electronically Signed On 09-29-17 11:36:24 CDT by Franklin Nascimento
[2017-09-29 12:16] LABS: Absolute Lymphocytes (CBC) 1.6 K/uL (0.7-4.9); Absolute Monocytes 0.5 K/uL (0.1-1.3); Absolute Neutrophil 4.5 K/uL (1.8-8.0); Basophils % 0.4 % (0-1.3); Eosinophils % 6.3 % (0-4.4); Hematocrit 37.4 % (36.0-45.0); Lymphocytes % 22.7 % (15.3-44.8); MCH 30.1 pg (27.0-35.0); MCV 93.1 fL (80-100); Monocytes % 7.7 % (3.3-12.3); RBC Red Blood Cell Count 4.02 M/uL (3.86-4.86)
--- NOTE | 2017-09-29 12:17 | RAD REPORT ---
EXAM DESCRIPTION: RAD - Chest Single View - 09/29/2017 11:31 am CLINICAL HISTORY: SOB Chest pain. COMPARISON: Chest Single View dated 09/14/2017; Chest Single View dated 05/22/2017; Chest Single View da ortega 12/05/2016; Chest Pa And Lat (2 Views) dated 07/03/2016 FINDINGS: Portable technique limits examination quality. The lungs are grossly clear. The heart is normal in size. No displaced fractures.Multi lead pacer/def ibrillator device is present. Sternotomy wires present. IMPRESSION: No acute intrathoracic process suspected.
[2017-09-29] MEDS ORDERED: ALBUTEROL 2.5 MG/3 ML NEB SOL ONE (12:34)
[2017-09-29] MEDS ORDERED: IPRATROPIUM BROM 0.5MG/2.5ML ONE (12:34)
[2017-09-29 12:36] LABS: Albumin 3.4 g/dL (3.4-5.0); Bilirubin Direct 0.2 mg/dL (0-0.2); Bilirubin Total 0.5 mg/dL (0.2-1.0); Magnesium 2.3 mg/dL (1.8-2.4); Potassium 5.4 mmol/L (3.5-5.1); Protein, Total 6.6 g/dL (6.4-8.2)
[2017-09-29 12:41] LABS: Protime INR 1.05
--- NOTE | 2017-09-29 13:26 | ER ---
Nurse's Notes [facility] Name: Jeannie Whitlock Age: 87 yrs Sex: Female : 1930 Arrival Date: 09/29/2017 Time: 10:59 Bed 5 Private MD: Diagnosis: Acute respiratory failure Presentation: 09/29 11:02 Presenting complaint: EMS states: Pt reports SOB x 1 week that has progressively ph worsened, SPO2 88% on 4L NC (w/ large amount of extension tubing noted) breathing tx administered, pt improved to 94% on neb mask, hx of COPD and CHF, states that she was d/c from [place] a week ago after being treated for a UTI. Transition of care: patient was not received from another setting of care. Onset of symptoms was September 29, 2017. Risk Assessment: Do you want to hurt yourself or someone else? Patient reports no desire to harm self or others. Initial Sepsis Screen: Does the patient meet any 2 criteria? No. Patient's initial sepsis screen is negative. Does the patient have a suspected source of infection? No. Patient's initial sepsis screen is negative. Care prior to arrival: Medication(s) given: Albuterol Neb Atrovent Neb Glucose check: 254. 11:02 Method Of Arrival: EMS: [facility] ph 11:02 Acuity: IRENE 3 ph Historical: - Allergies: 11:21 Codeine; ph 11:21 CT Dye; ph 11:21 Demerol; ph 11:21 Iodine; ph 11:21 Morphine; ph 11:21 PENICILLINS; ph 11:21 Tape; ph - Home Meds: 11:21 bisoprolol fumarate 5 mg Oral tab 1 tab once daily [Active]; Spiriva with HandiHaler 18 ph mcg inhalation CpDv 1 cap once daily [Active]; ProAir HFA 90 mcg/actuation inhalation HFAA 2 puffs every 6 hours [Active]; Probiotic Oral [Active]; furosemide 20 mg Oral tab 1 tab once daily [Active]; lisinopril 2.5 mg Oral tab 1 tab once daily [Active]; fenofibrate 150 mg oral cap 1 cap once daily [Active]; potassium chloride 10 mEq Oral cpER 1 cap once daily [Active]; sertraline 50 mg Oral tab [Active]; prednisone 10 mg Oral tab once daily [Active]; amlodipine 2.5 mg tab 1 tab once daily [Active]; Brovana 15 mcg/2 mL inhalation nebu daily [Active]; Bactrim DS 800-160 mg Oral tab 1 tab every 12 hours [Active]; CoQ-10 100 mg Oral cap daily [Active]; Ocuvite 844-05-9-150 ai-[id number]-ka-mg oral cap [Active]; Vitamin C Oral [Active]; Vitamin D Oral [Active]; vitamin E 200 unit Oral cap daily [Active]; Humalog Mix 75-25 100 unit/mL (75-25) Sub-Q susp [Active]; Nasacort Nasal [Active]; - PMHx: 11:21 Cancer, Lung; CHF; Diabetes - IDDM; High Cholesterol; Hypertension; ph - Immunization history:: Adult Immunizations unknown. - Social history:: Smoking status: Patient/guardian denies using tobacco. - Ebola Screening: : No symptoms or risks identified at this time. Screenin:50 Abuse screen: Denies threats or abuse. Denies injuries from another. Nutritional ph screening: No deficits noted. Tuberculosis screening: No symptoms or risk factors identified. Fall Risk No fall in past 12 months (0 pts). No secondary diagnosis (0 pts). IV access (20 points). Ambulatory Aid- None/Bed Rest/Nurse Assist (0 pts). Gait- Normal/Bed Rest/Wheelchair (0 pts) Mental Status- Oriented to own ability (0 pts). Total Ugarte Fall Scale indicates No Risk (0-24 pts). Assessment: 11:00 General: Appears in no apparent distress. uncomfortable, Behavior is calm, cooperative, ph appropriate for age. Pain: Denies pain. Neuro: Level of Consciousness is awake, alert, obeys commands, Oriented to person, place, time, situation. Cardiovascular: Reports nausea, shortness of breath, Denies chest pain, palpitations, vomiting, Capillary refill < 3 seconds Patient's skin is warm and dry. Rhythm is irregular. Respiratory: Reports shortness of breath at rest cough that is productive, Airway is patent Respiratory effort is even, unlabored, Respiratory pattern is tachypnea Breath sounds are coarse bilaterally. GI: Reports nausea, Patient currently denies abdominal pain, diarrhea, vomiting. Derm: Skin is intact, is fragile, is thin, Skin is pink, warm \T\ dry. Musculoskeletal: Circulation, motion, and sensation intact. Range of motion: intact in all extremities. 12:00 Reassessment: Patient appears in no apparent distress at this time. Patient and/or ph family updated on plan of care and expected duration. Pain level reassessed. Patient is alert, oriented x 3, equal unlabored respirations, skin warm/dry/pink. Pt resting quietly, reports that SOB has improved after nebulizer tx, daughter at bedside. 13:10 Reassessment: Patient appears in no apparent distress at this time. Patient and/or ph family updated on plan of care and expected duration. Pain level reassessed. Patient is alert, oriented x 3, equal unlabored respirations, skin warm/dry/pink. Pt resting quietly, denies pain at this time. 14:45 Reassessment: Patient appears in no apparent distress at this time. Patient and/or ph family updated on plan of care and expected duration. Pain level reassessed. Patient is alert, oriented x 3, equal unlabored respirations, skin warm/dry/pink. Report called to HIREN Butts, pt waiting to be taken to inpatient room. Vital Signs: 11:08 BP 141 / 72; Pulse 102; Resp 16; Temp 98.7(TE); Pulse Ox 88% on 2 lpm NC; Weight 68.95 ph kg; Height 5 ft. 4 in. (162.56 cm); Pain 0/10; 12:00 BP 158 / 78; Pulse 91; Resp 20; Pulse Ox 95% on Nebulizer Mask; ph 13:30 BP 108 / 62; Pulse 104; Resp 18; Pulse Ox 98% on Nebulizer Mask; ph 14:26 BP 112 / 62; Pulse 106; Resp 20; Temp 97.9; Pulse Ox 95% on 3 lpm NC; ph 11:08 Body Mass Index 26.09 (68.95 kg, 162.56 cm) ph ED Course: 10:59 Patient arrived in ED. bd 11:00 Ace Craft MD is Attending Physician. gs 11:08 Triage completed. ph 11:12 EKG done, by electromedical equipment technician. reviewed by Ace Craft MD. at1 11:22 Arm band placed on. ph 11:29 X-ray completed. Portable x-ray completed in exam room. Patient tolerated procedure ml well. 11:31 XRAY Chest (1 view) In Process Unspecified. EDMS 11:50 Martita Mcnally, RN is Primary Nurse. ph 11:50 Patient has correct armband on for positive identification. Placed in gown. Bed in low ph position. Call light in reach. Side rails up X 1. dog control officer on. Pulse ox on. NIBP on. Warm blanket given. 12:00 Inserted saline lock: 22 gauge in right forearm, using aseptic technique. ph 13:11 No provider procedures requiring assistance completed. ph 13:24 Aidan Gunn MD is Hospitalizing Provider. gs Administered Medications: 11:45 Drug: Albuterol - atroVENT (3:1) (2.5 mg - 0.5 mg) 3 ml Route: Nebulizer; ph 14:46 Follow up: Response: No adverse reaction ph 11:45 Drug: AtroVENT Aerosol 0.5 mg Route: Inhalation; ph 14:45 Follow up: Response: No adverse reaction ph Outcome: 13:25 Decision to Hospitalize by Provider. gs 14:47 Admitted to Tele accompanied by tech, family with patient, via stretcher, room 413, ph with oxygen, with chart. 14:47 Condition: stable 14:47 Instructed on the need for admit. 15:15 Patient left the ED. ph Signatures: Dispatcher [employer] EDMS Bonnie Salazar Melissa ml gonzales, Amanda, forensic toxicologist EKG Tat1 Martita Mcnally, RN RN ph CraftAce MD MD
--- NOTE | 2017-09-29 13:26 | EDPHYS ---
Physician Documentation [facility] Name: Jeannie Whitlock Age: 87 yrs Sex: Female : 1930 Arrival Date: 09/29/2017 Time: 10:59 Bed 5 Private MD: ED Physician Ace Craft HPI: 09/29 13:17 This 87 yrs old Female presents to ER via EMS with unknown complaint. gs 13:17 This 87 yrs old Female presents to ER via EMS with complaints of sob. gs 13:17 The patient has shortness of breath at rest. Onset: The symptoms/episode began/occurred gs 2 day(s) ago, and became worse and became persistent. Duration: The symptoms are continuous, and are unchanged since they started. The patient's shortness of breath is aggravated by exertion. Associated signs and symptoms: Pertinent negatives: fever. Severity of symptoms: At their worst the symptoms were severe in the emergency department the symptoms are unchanged. The patient has experienced similar episodes in the past, chronically. The patient has been recently seen by a physician: Historical: - Allergies: 11:21 Codeine; ph 11:21 CT Dye; ph 11:21 Demerol; ph 11:21 Iodine; ph 11:21 Morphine; ph 11:21 PENICILLINS; ph 11:21 Tape; ph - Home Meds: 11:21 bisoprolol fumarate 5 mg Oral tab 1 tab once daily [Active]; Spiriva with HandiHaler 18 ph mcg inhalation CpDv 1 cap once daily [Active]; ProAir HFA 90 mcg/actuation inhalation HFAA 2 puffs every 6 hours [Active]; Probiotic Oral [Active]; furosemide 20 mg Oral tab 1 tab once daily [Active]; lisinopril 2.5 mg Oral tab 1 tab once daily [Active]; fenofibrate 150 mg oral cap 1 cap once daily [Active]; potassium chloride 10 mEq Oral cpER 1 cap once daily [Active]; sertraline 50 mg Oral tab [Active]; prednisone 10 mg Oral tab once daily [Active]; amlodipine 2.5 mg tab 1 tab once daily [Active]; Brovana 15 mcg/2 mL inhalation nebu daily [Active]; Bactrim DS 800-160 mg Oral tab 1 tab every 12 hours [Active]; CoQ-10 100 mg Oral cap daily [Active]; Ocuvite 826-70-4-150 hf-ppzv-ke-mg oral cap [Active]; Vitamin C Oral [Active]; Vitamin D Oral [Active]; vitamin E 200 unit Oral cap daily [Active]; Humalog Mix 75-25 100 unit/mL (75-25) Sub-Q susp [Active]; Nasacort Nasal [Active]; - PMHx: 11:21 Cancer, Lung; CHF; Diabetes - IDDM; High Cholesterol; Hypertension; ph - Immunization history:: Adult Immunizations unknown. - Social history:: Smoking status: Patient/guardian denies using tobacco. - Ebola Screening: : No symptoms or risks identified at this time. ROS: 13:17 All other systems are negative. gs Exam: 13:17 Head/Face: Normocephalic, atraumatic. Eyes: Pupils equal round and reactive to light, gs extra-ocular motions intact. Lids and lashes normal. Conjunctiva and sclera are non-icteric and not injected. Cornea within normal limits. Periorbital areas with no swelling, redness, or edema. ENT: Nares patent. No nasal discharge, no septal abnormalities noted. Tympanic membranes are normal and external auditory canals are clear. Oropharynx with no redness, swelling, or masses, exudates, or evidence of obstruction, uvula midline. Mucous membranes moist. Neck: Trachea midline, no thyromegaly or masses palpated, and no cervical lymphadenopathy. Supple, full range of motion without nuchal rigidity, or vertebral point tenderness. No Meningismus. Chest/axilla: Normal chest wall appearance and motion. Nontender with no deformity. No lesions are appreciated. 13:17 Abdomen/GI: Soft, non-tender, with normal bowel sounds. No distension or tympany. No guarding or rebound. No evidence of tenderness throughout. Back: No spinal tenderness. No costovertebral tenderness. Full range of motion. Skin: Warm, dry with normal turgor. Normal color with no rashes, no lesions, and no evidence of cellulitis. MS/ Extremity: Pulses equal, no cyanosis. Neurovascular intact. Full, normal range of motion. Neuro: Awake and alert, GCS 15, oriented to person, place, time, and situation. Cranial nerves II-XII grossly intact. Motor strength 5/5 in all extremities. Sensory grossly intact. Cerebellar exam normal. Normal gait. 13:17 Constitutional: The patient appears alert, awake, in obvious distress, severely distressed. 13:17 Cardiovascular: Rate: tachycardic, Rhythm: regular, Pulses: no pulse deficits are appreciated, Edema: is not appreciated. 13:17 ECG was reviewed by the Attending Physician. 13:17 Respiratory: severe repiratory distress is noted, Respirations: tachypnea, Breath sounds: rales, wheezing: Vital Signs: 11:08 BP 141 / 72; Pulse 102; Resp 16; Temp 98.7(TE); Pulse Ox 88% on 2 lpm NC; Weight 68.95 ph kg; Height 5 ft. 4 in. (162.56 cm); Pain 0/10; 12:00 BP 158 / 78; Pulse 91; Resp 20; Pulse Ox 95% on Nebulizer Mask; ph 13:30 BP 108 / 62; Pulse 104; Resp 18; Pulse Ox 98% on Nebulizer Mask; ph 14:26 BP 112 / 62; Pulse 106; Resp 20; Temp 97.9; Pulse Ox 95% on 3 lpm NC; ph 11:08 Body Mass Index 26.09 (68.95 kg, 162.56 cm) ph MDM: 11:07 Patient medically screened. 13:17 Data reviewed: vital signs, nurses notes, and as a result, I will admit patient. 09/29 11:11 Order name: PT-INR; Complete Time: 13:04 09/29 11:11 Order name: Basic Metabolic Panel; Complete Time: 13:04 09/29 11:11 Order name: CBC with Diff; Complete Time: 13:04 09/29 11:11 Order name: LFT's; Complete Time: 13:04 09/29 11:11 Order name: Magnesium; Complete Time: 13:04 09/29 11:11 Order name: NT PRO-BNP; Complete Time: 13:04 09/29 11:11 Order name: Troponin (emerg Dept Use Only); Complete Time: 13:04 09/29 11:11 Order name: XRAY Chest (1 view); Complete Time: 13:04 09/29 11:11 Order name: EKG; Complete Time: 11:12 09/29 11:11 Order name: Cardiac monitoring; Complete Time: 13:11 09/29 11:11 Order name: ABG; Complete Time: 13:04 09/29 13:25 Order name: Urinalysis W/Microscopic [facility] 09/29 11:11 Order name: EKG - Nurse/Tech; Complete Time: 13:11 09/29 11:11 Order name: IV Saline Lock; Complete Time: 13:11 09/29 11:11 Order name: Labs collected and sent; Complete Time: 13:11 09/29 11:11 Order name: O2 Per Protocol; Complete Time: 13:12 09/29 11:11 Order name: O2 Sat Monitoring; Complete Time: 13:12 EC: Rate is 104 beats/min. Rhythm is regular, Sinus tachycardia. OK interval is normal. QRS gs interval is prolonged. Clinical impression: Abnormal EKG without significant change. Interpreted by me. Administered Medications: 11:45 Drug: Albuterol - atroVENT (3:1) (2.5 mg - 0.5 mg) 3 ml Route: Nebulizer; ph 14:46 Follow up: Response: No adverse reaction ph 11:45 Drug: AtroVENT Aerosol 0.5 mg Route: Inhalation; ph 14:45 Follow up: Response: No adverse reaction ph Disposition: 13:17 Critical Care:. gs Disposition: 09/29/17 13:25 Hospitalization ordered by Aidan Gunn for Inpatient Admission. Preliminary diagnosis is Acute respiratory failure. - Bed requested for Telemetry/MedSurg (Inpatient). - Status is Inpatient Admission. ph - Condition is Stable. - Problem is an acute exacerbation. - Symptoms have improved. UTI on Admission? No Critical care time excluding procedures: 13:17 Critical care time: Bedside Care: 10 minutes, Consultation: 10 minutes, Family gs Intervention: 10 minutes. Total time: 30 minutes Signatures: Dispatcher [employer] [facility] Phyllis Arceo RN RN dw Martita Mcnally RN RN ph CraftAce MD MD Corrections: (The following items were deleted from the chart) 14:13 13:25 Hospitalization Ordered by Aidan Gunn MD for Inpatient Admission. Preliminary diagnosis is Acute respiratory failure. Bed requested for Telemetry/MedSurg (Inpatient). Status is Inpatient Admission. Condition is Stable. Problem is an acute exacerbation. Symptoms have improved. UTI on Admission? No. gs 15:15 14:13 09/29/2017 13:25 Hospitalization Ordered by Aidan Gunn MD for Inpatient ph Admission. Preliminary diagnosis is Acute respiratory failure. Bed requested for Telemetry/MedSurg (Inpatient). Status is Inpatient Admission. Condition is Stable. Problem is an acute exacerbation. Symptoms have improved. UTI on Admission? No. dw
[2017-09-29] MEDS: ALBUTEROL 2.5 MG/3 ML NEB SOL NEB PRN (16:01)
[2017-09-29] MEDS: IPRATROPIUM BROM 0.5MG/2.5ML NEB SCH ×3 (16:01→23:10)
[2017-09-29 16:26] VITALS: BMI 26.1
[2017-09-29] MEDS ORDERED: Levofloxacin 750mg IV 750 MG/150 ML BAG IV SCH (17:00)
[2017-09-29] MEDS: METHYLPREDNISOLONE 40 MG INJ IV SCH (18:00)
[2017-09-29] MEDS ORDERED: GLUCAGON 1 MG/VIAL IM PRN (18:02)
[2017-09-29] MEDS ORDERED: D50W 25 GM/50 ML SYRINGE IV PRN (18:02)
--- NOTE | 2017-09-29 18:08 | P.HP ---
Certification for Inpatient Patient admitted to: Inpatient With expected LOS: >2 Midnights Patient will require the following post-hospital care: None Practitioner: I am a practitioner with admitting privileges, knowledge of patient current condition, hospital course, and medical plan of care. Services: Services provided to patient in accordance with Admission requirements found in Title 42 Section 412.3 of the Code of Federal Regulations Patient History Date of Service: 09/29/17 Reason for admission: SOB History of Present Illness: 87 y/o female with HTN DM2, CAD, CHF COPD and AAA UTI who was brought in ER SOB x 4 days, associated with fever 101 today, productive of yellowish sputum, and increasing SOB. No chest pain. She has recent UTI and was hospitalized recently. Allergies codeine [Codeine] Allergy (Mild, Verified 09/29/17 16:00) Itching Penicillins Allergy (Mild, Verified 09/29/17 16:00) Nausea/Vomiting iodine Allergy (Verified 09/29/17 16:00) Unknown meperidine [From Demerol] Allergy (Verified 09/29/17 16:00) Unknown metformin Allergy (Verified 09/29/17 16:00) Nausea/Vomiting morphine Allergy (Verified 09/29/17 16:00) Unknown Huurivi-Uti-Skb Reductase Inhibitor Allergy (Verified 09/29/17 16:00) Nausea/Vomiting CT Dye Allergy (Uncoded 08/11/15 21:16) Unknown Tape Allergy (Uncoded 08/11/15 21:16) Itching Home Medications: Bisoprolol Fumarate [Zebeta*] 5 mg PO DAILY AT SUPPER 08/11/15 Furosemide [Lasix*] 20 mg PO DAILY 08/11/15 Insulis Lispro MIX 75/25 [Humalog Mix 75/25*] 36 units SQ DAILY WITH BREAKFAST 08/11/15 L.acidoph,Paracasei, B.lactis [Probiotic] 1 cap PO DAILY 08/11/15 Potassium Chloride [Klor-Con M10] 10 meq PO DAILY 08/11/15 Sertraline [Zoloft*] 50 mg PO DAILY 08/11/15 Tiotropium [Spiriva Handihaler*] 18 mcg IH DAILY 08/11/15 Arformoterol Tartrate [Brovana] 15 mcg IH BID 08/12/15 Albuterol Sulfate [Proair Hfa] 2 puff IH QIDP PRN 12/18/15 Cholecalciferol (Vitamin D3) [Vitamin D 400 IU TAB*] 1 cap PO DAILY 12/18/15 Insulis Lispro MIX 75/25 [Humalog Mix 75/25*] 14 units SQ DAILY AT SUPPER Ubidecarenone [Co Q-10] 1 cap PO DAILY 12/18/15 Vit A,C & E/Lutein/Minerals [Ocuvite Tablet] 1 tab PO DAILY 12/18/15 Smz./Tmp. 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) -: Triple Bypass in 1999 -: Upper teeth removd -: chloesectomy -: appendectomy -: bladder surgery -: AAA repair using straight graft (2014) - Family History Father -: Diabetes Notes: asthma, tuberculosis, pneumonia Mother -: Heart disease, Stroke Notes: pneumonia - Social History Smoking Status: Former smoker Alcohol use: No CD- Drugs: No Caffeine use: Yes Place of Residence: Home Review of Systems 10-point ROS is otherwise unremarkable Physical Examination - Vital Signs Temperature: 97.9 F Blood Pressure: 112/62 Pulse: 106 Respirations: 20 - Physical Exam General: Alert, In no apparent distress HEENT: Atraumatic, PERRLA, Mucous membr. moist/pink, EOMI, Sclerae nonicteric Neck: Supple, 2+ carotid pulse no bruit, No LAD, Without JVD or thyroid abnormality Respiratory: Diminished, Rhonchi/gurgles Cardiovascular: Regular rate/rhythm, Normal S1 S2 Gastrointestinal: Normal bowel sounds, No tenderness Musculoskeletal: No tenderness Integumentary: No rashes Neurological: Normal gait, Normal speech, Normal strength at 5/5 x4 extr, Normal tone, Normal affect Lymphatics: No axilla or inguinal lymphadenopathy - Studies Laboratory Data (last 24 hrs) 09/29/17 12:20: PT 12.4, INR 1.05 09/29/17 12:00: WBC 7.1, Hgb 12.1, Hct 37.4, Plt Count 168 09/29/17 12:00: Sodium 138, Potassium 5.4 H, BUN 21 H, Creatinine 1.40 H, Glucose 226 H, Magnesium 2.3, Total Bilirubin 0.5, AST 23, ALT 21, Alkaline Phosphatase 30 L Assessment and Plan - Problems (Diagnosis) (1) COPD exacerbation Current Visit: Yes Status: Acute (2) CHF (congestive heart failure) Current Visit: Yes Status: Chronic Qualifiers: Heart failure type: diastolic Heart failure chronicity: chronic Qualified Code(s): I50.32 - Chronic diastolic (congestive) heart failure (3) COPD (chronic obstructive pulmonary disease) Onset Date: 08/12/15 Current Visit: Yes Status: Chronic Qualifiers: COPD type: unspecified COPD Qualified Code(s): J44.9 - Chronic obstructive pulmonary disease, unspecified (4) Chronic renal disease, stage 2, mildly decreased glomerular filtration rate (GFR) between 60-89 mL/min/1.73 square meter Onset Date: 12/18/15 Current Visit: Yes Status: Chronic (5) Diabetes Onset Date: 12/18/15 Current Visit: Yes Status: Acute Qualifiers: Diabetes mellitus type: type 2 Diabetes mellitus penitentiary insulin use: with rn long term care use Diabetes mellitus complication status: without complication Qualified Code(s): E11.9 - Type 2 diabetes mellitus without complications; Z79.4 - alf (current) use of insulin (6) Lung cancer Onset Date: 12/18/15 Current Visit: Yes Status: Chronic Qualifiers: Laterality: unspecified laterality Lung location: unspecified part of lung Qualified Code(s): C34.90 - Malignant neoplasm of unspecified part of unspecified bronchus or lung (7) UTI (urinary tract infection) Onset Date: 08/12/15 Current Visit: Yes Status: Chronic Qualifiers: Urinary tract infection type: site unspecified Hematuria presence: without hematuria Qualified Code(s): N39.0 - Urinary tract infection, site not specified - Plan --CT chest r/o pneumonia --Repeat UA --Start Levaquin IV --Nebs --Solu Medrol --Lasix IV --Resume home meds - Advance Directives Does patient have a Living Will: No Does patient have a Durable POA for Healthcare: Yes
--- NOTE | 2017-09-29 18:47 | RAD REPORT ---
EXAM DESCRIPTION: CT - Thorax Wo Con CLINICAL HISTORY: Chest pain chest pain COMPARISON: Thorax Wo Con dated 03/16/2017; Pet Ct Whole Body dated 06/09/2017 FINDINGS: Diffuse COPD is present. A crescentic linear area of scarring in the medial right upper lo be is noted, unchanged. No pleural thickening or pleural effusion. No pneumothorax. Focal soft tissue density is seen in the posterior right lower lobe bronchus (image 30/56). No axillary, mediastinal or hilar adenopathy. No concerning bony finding. Aortic atherosclerosis. All CT scans are performed using dose optimization technique as appropriate and may include automated exposure control or mA/KV adjustment according to patient size. IMPRESSION: Prominent COPD.No acute infiltrate identified. Small soft tissue density within the posterior right lower lobe bronchus may represent a mucous plug, aspirated material or endobronchial mass. Bronchoscopy may be considered if further assessment is cl inically warranted.
[2017-09-29 19:51] LABS: Urine Appearance CLEAR; Urine Bilirubin NEGATIVE (NEG); Urine Blood NEGATIVE (NEG); Urine Color YELLOW; Urine Glucose 2+ (NEG); Urine Protein NEGATIVE (NEG); Urine pH 6.5 (5.0-7.0)
[2017-09-29 20:01] LABS: Urine Microscopic Reflex NO UMIC
[2017-09-29] MEDS: ARFORMOTEROL TARTRATE 15 MCG/2 ML VIAL.NEB IH SCH (20:13)
[2017-09-29] MEDS: INSULIN -REGULAR HUMAN 50 UNIT/0.5 ML ML SQ SCH (21:22)
[2017-09-29] MEDS: ENOXAPARIN 30 MG/0.3 ML SQ SCH (21:23)
[2017-09-29] MEDS: FUROSEMIDE 40 MG/4 ML VIAL IV SCH (21:23)
[2017-09-30] MEDS: ONDANSETRON 4 MG/2 ML VIAL IV PRN ×2 (01:27→05:45)
[2017-09-30] MEDS: METHYLPREDNISOLONE 40 MG INJ IV SCH ×3 (01:27→12:18)
[2017-09-30] MEDS: IPRATROPIUM BROM 0.5MG/2.5ML NEB SCH ×6 (03:29→23:33)
[2017-09-30] MEDS: ALBUTEROL 2.5 MG/3 ML NEB SOL NEB PRN (03:29)
[2017-09-30 05:07] LABS: Absolute Lymphocytes (CBC) 0.4 K/uL (0.7-4.9); Absolute Neutrophil 4.4 K/uL (1.8-8.0); Basophils % 0.2 % (0-1.3); Hematocrit 36.7 % (36.0-45.0); Lymphocytes % 7.7 % (15.3-44.8); MCH 30.7 pg (27.0-35.0); MCV 92.3 fL (80-100); MPV 8.4 fL (7.6-11.3); Monocytes % 0.9 % (3.3-12.3); RBC Red Blood Cell Count 3.97 M/uL (3.86-4.86)
[2017-09-30 05:43] LABS: Albumin 3.5 g/dL (3.4-5.0); Bilirubin Total 0.6 mg/dL (0.2-1.0)
[2017-09-30 06:03] LABS: Blood Morphology Comment NOT SEEN (NOT SEEN); Platelet Estimate ADEQ; Urine White Blood Cell Casts OK
[2017-09-30] MEDS: ARFORMOTEROL TARTRATE 15 MCG/2 ML VIAL.NEB IH SCH ×3 (07:31→20:00)
[2017-09-30] MEDS: HUMALOG MIX 75/25 100 UNITS/ML SQ SCH ×2 (08:00→16:41)
[2017-09-30] MEDS: LISINOPRIL 5 MG TAB PO SCH (08:18)
[2017-09-30] MEDS: FUROSEMIDE 40 MG/4 ML VIAL IV SCH (08:20)
[2017-09-30] MEDS: INSULIN -REGULAR HUMAN 50 UNIT/0.5 ML ML SQ SCH ×4 (08:21→21:09)
[2017-09-30] MEDS: HOME MED 1 EA UNK (Potassium Chloride [Klor-Con M10] 10 MEQ) PO SCH (08:22)
[2017-09-30] MEDS ORDERED: HOME MED 1 EA UNK (Lisinopril [Zestril] 2.5 MG) PO SCH (09:00)
[2017-09-30] MEDS ORDERED: SERTRALINE HCL 50 MG TAB PO SCH (09:00)
--- NOTE | 2017-09-30 12:42 | P.CNS ---
Date of Consult: 09/30/17 Reason for Consult: Shortness of breath Chief Complaint: SOB History of Present Illness: Patient is 87 years of age well known to me with a history of terminal COPD has been progressively declining admitted here with worsening dyspnea she was recently admitted to a tertiary care hospital in [place] for possible bleeding aneurysm became worse shortly after that increasing shortness of breath denies any fever or chills patient had abnormal CT scan done prior history of lung cancer that was treated with empiric radiation therapy high risk for biopsy patient is a very poor baseline functional status Allergies codeine [Codeine] Allergy (Mild, Verified 09/29/17 16:00) Itching Penicillins Allergy (Mild, Verified 09/29/17 16:00) Nausea/Vomiting iodine Allergy (Verified 09/29/17 16:00) Unknown meperidine [From Demerol] Allergy (Verified 09/29/17 16:00) Unknown metformin Allergy (Verified 09/29/17 16:00) Nausea/Vomiting morphine Allergy (Verified 09/29/17 16:00) Unknown Dqejxvv-Ghr-Pux Reductase Inhibitor Allergy (Verified 09/29/17 16:00) Nausea/Vomiting CT Dye Allergy (Uncoded 08/11/15 21:16) Unknown Tape Allergy (Uncoded 08/11/15 21:16) Itching Home Medications: Bisoprolol Fumarate [Zebeta*] 5 mg PO DAILY AT SUPPER 08/11/15 Furosemide [Lasix*] 20 mg PO DAILY 08/11/15 Insulis Lispro MIX 75/25 [Humalog Mix 75/25*] 36 units SQ DAILY WITH BREAKFAST 08/11/15 L.acidoph,Paracasei, B.lactis [Probiotic] 1 cap PO DAILY 08/11/15 Potassium Chloride [Klor-Con M10] 10 meq PO DAILY 08/11/15 Sertraline [Zoloft*] 50 mg PO BEDTIME 08/11/15 Tiotropium [Spiriva Handihaler*] 18 mcg IH DAILY 08/11/15 Arformoterol Tartrate [Brovana] 15 mcg IH BID 08/12/15 Albuterol Sulfate [Proair Hfa] 2 puff IH QIDP PRN 12/18/15 Cholecalciferol (Vitamin D3) [Vitamin D 400 IU TAB*] 1 cap PO DAILY 12/18/15 Insulis Lispro MIX 75/25 [Humalog Mix 75/25*] 14 units SQ DAILY AT SUPPER Ubidecarenone [Co Q-10] 1 cap PO DAILY 12/18/15 Vit A,C & E/Lutein/Minerals [Ocuvite Tablet] 1 tab PO DAILY 12/18/15 Smz./Tmp. 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) -: Triple Bypass in 1999 -: Upper teeth removd -: chloesectomy -: appendectomy -: bladder surgery -: AAA repair using straight graft (2014) - Family History Father Medical History: Diabetes Notes: asthma, tuberculosis, pneumonia Mother Medical History: Heart disease, Stroke Notes: pneumonia - Social History Smoking Status: Former smoker Alcohol use: No CD- Drugs: No Caffeine use: Yes Place of Residence: Home Review of Systems General: Weakness Respiratory: Cough, Shortness of Breath Physical Examination Temp Pulse Resp BP Pulse Ox 98.9 F 83 18 149/96 H 90 L 09/30/17 12:00 09/30/17 12:00 09/30/17 12:00 09/30/17 12:00 09/30/17 12:00 General: Alert, Moderate distress Respiratory: Diminished, Expiratory wheezes Cardiovascular: No edema, Regular rate/rhythm, Normal S1 S2 Gastrointestinal: Normal bowel sounds Laboratory Data (last 24 hrs) 09/29/17 12:20: PT 12.4, INR 1.05 - Problems (1) COPD exacerbation Current Visit: Yes Status: Acute Plan: Patient is 87 years of age with terminal COPD has been progressively declining admitted with an exacerbation patient has hypoxemia hypercapnia and has a noninvasive vent at home in addition to renal insufficiency chest x-rays clear continue with supportive therapy had poor overall prognosis is very poor DT scan does show abnormality in the right lower lobe patient is that the high risk for any procedures he is not a candidate for any further chemo radiation the vent of this being lung cancer patient's vital signs are stable oxygenation satisfactory patient has a history of congestive heart failure patient's BNP is elevated presumably from cor pulmonale meds reviewed and adjusted no evidence of sepsis Dc antibiotics possible discharge home tomorrow she takes 10 mg of prednisone daily I have advised her to increase it to 10 twice a day for the
--- NOTE | 2017-09-30 13:38 | RAD REPORT ---
EXAM DESCRIPTION: RAD - Barium Swallow Modified - 09/30/2017 1:23 pm CLINICAL HISTORY: Dysphagia COMPARISON: None. TECHNIQUE: The patient was given liquid, semi-solid and solid forms of barium. Lateral view fluorosc opic imaging was performed in conjunction with speech pathology service. FINDINGS: No aspiration was observed. There was laryngeal penetration on thin barium. Fluoro time was 1 minutes 8 seconds. A total of 10 cine loop acquisitions acquired. IMPRESSION: Modified barium swallow as detailed above and on speech pathology report.
--- NOTE | 2017-09-30 15:46 | P.PN ---
Subjective Date of Service: 09/30/17 Chief Complaint: SOB She is doing better today, less SOB, less cough, less edema. Daughter wants to place her in rehab. Physical Examination - Vital Signs Temperature: 98.9 F Blood Pressure: 149/96 Pulse: 83 Respirations: 18 Pulse Ox (%): 90 - Physical Exam General: Alert, In no apparent distress HEENT: Atraumatic, PERRLA, EOMI Neck: Supple, JVD not distended Respiratory: Normal air movement, Rhonchi/gurgles Cardiovascular: Regular rate/rhythm, Normal S1 S2 Gastrointestinal: Normal bowel sounds, No tenderness Musculoskeletal: No tenderness Integumentary: No rashes Neurological: Normal speech, Normal tone, Normal affect Lymphatics: No axilla or inguinal lymphadenopathy - Studies Medications List Reviewed: Yes Assessment And Plan - Current Problems (Diagnosis) (1) COPD exacerbation Onset Date: 09/30/17 Current Visit: Yes Status: Acute (2) CHF (congestive heart failure) Onset Date: 09/30/17 Current Visit: Yes Status: Chronic Qualifiers: Heart failure type: combined systolic and diastolic Heart failure chronicity: acute on chronic Qualified Code(s): I50.43 - Acute on chronic combined systolic (congestive) and diastolic (congestive) heart failure (3) COPD (chronic obstructive pulmonary disease) Onset Date: 08/12/15 Current Visit: Yes Status: Chronic Qualifiers: COPD type: unspecified COPD Qualified Code(s): J44.9 - Chronic obstructive pulmonary disease, unspecified (4) Chronic renal disease, stage 2, mildly decreased glomerular filtration rate (GFR) between 60-89 mL/min/1.73 square meter Onset Date: 12/18/15 Current Visit: Yes Status: Chronic (5) Diabetes Onset Date: 12/18/15 Current Visit: Yes Status: Acute Qualifiers: Diabetes mellitus type: type 2 Diabetes mellitus long term care social worker insulin use: with detention use Diabetes mellitus complication status: without complication Qualified Code(s): E11.9 - Type 2 diabetes mellitus without complications; Z79.4 - long-term (current) use of insulin (6) Lung cancer Onset Date: 12/18/15 Current Visit: Yes Status: Chronic Qualifiers: Laterality: unspecified laterality Lung location: unspecified part of lung Qualified Code(s): C34.90 - Malignant neoplasm of unspecified part of unspecified bronchus or lung (7) UTI (urinary tract infection) Onset Date: 08/12/15 Current Visit: No Status: Resolved Qualifiers: Urinary tract infection type: site unspecified Hematuria presence: without hematuria Qualified Code(s): N39.0 - Urinary tract infection, site not specified - Plan --DC ABX no pneumonia, no UTI --Nebs --PO Steroid --Lasix IV --Cons PT/OT, Rehab and Sprinkler Repair Technician --DC home vs SNF vs Rehab tomorrow or weekend
[2017-09-30] MEDS: ENOXAPARIN 30 MG/0.3 ML SQ SCH (21:08)
[2017-09-30] MEDS: SERTRALINE HCL 50 MG TAB PO SCH (21:09)
[2017-09-30] MEDS: predniSONE 20 MG TAB PO SCH (21:09)
[2017-09-30] MEDS: ENSURE PUDDING 4 OZ CUP PO SCH (21:10)
[2017-09-30] MEDS: BENZONATATE 100 MG CAP PO PRN (23:45)
[2017-10-01] MEDS: IPRATROPIUM BROM 0.5MG/2.5ML NEB SCH ×4 (04:29→19:51)
[2017-10-01] MEDS: ONDANSETRON 4 MG/2 ML VIAL IV PRN (04:51)
[2017-10-01 05:49] LABS: Absolute Lymphocytes (CBC) 0.6 K/uL (0.7-4.9); Absolute Monocytes 0.4 K/uL (0.1-1.3); Absolute Neutrophil 11.2 K/uL (1.8-8.0); Basophils % 0.2 % (0-1.3); Hematocrit 34.6 % (36.0-45.0); Lymphocytes % 4.9 % (15.3-44.8); MCH 30.5 pg (27.0-35.0); MCV 91.9 fL (80-100); MPV 8.1 fL (7.6-11.3); Monocytes % 3.6 % (3.3-12.3); RBC Red Blood Cell Count 3.77 M/uL (3.86-4.86)
[2017-10-01 06:04] LABS: Albumin 3.3 g/dL (3.4-5.0); Bilirubin Total 0.3 mg/dL (0.2-1.0); Potassium 4.9 mmol/L (3.5-5.1); Protein, Total 6.6 g/dL (6.4-8.2)
[2017-10-01 06:26] LABS: Blood Morphology Comment NOT SEEN (NOT SEEN); Platelet Estimate ADEQ; Urine White Blood Cell Casts OK
[2017-10-01] MEDS: HUMALOG MIX 75/25 100 UNITS/ML SQ SCH ×2 (08:00→17:00)
[2017-10-01] MEDS: ARFORMOTEROL TARTRATE 15 MCG/2 ML VIAL.NEB IH SCH (08:22)
[2017-10-01] MEDS: HOME MED 1 EA UNK (Potassium Chloride [Klor-Con M10] 10 MEQ) PO SCH (09:00)
[2017-10-01] MEDS: LISINOPRIL 5 MG TAB PO SCH (10:39)
[2017-10-01] MEDS: predniSONE 20 MG TAB PO SCH (10:41)
[2017-10-01] MEDS: FUROSEMIDE 40 MG TABLET PO SCH (10:41)
[2017-10-01] MEDS: INSULIN -REGULAR HUMAN 50 UNIT/0.5 ML ML SQ SCH ×4 (10:43→20:17)
[2017-10-01] MEDS: ENSURE PUDDING 4 OZ CUP PO SCH ×2 (10:46→20:18)
--- NOTE | 2017-10-01 10:54 | P.PN ---
Subjective Date of Service: 10/01/17 Chief Complaint: COPD exacerbation Subjective: Improving (Patient is doing better shortness of breath has improved awaiting) Review of Systems Unremarkable (Patient is doing better shortness of breath has improved awaiting rehab transfer) Physical Examination - Vital Signs Temperature: 97.1 F Blood Pressure: 115/58 Pulse: 94 Respirations: 18 Pulse Ox (%): 99 - Physical Exam General: Alert, Oriented x3 Respiratory: Clear to auscultation bilaterally, Diminished Cardiovascular: No edema - Studies Medications List Reviewed: Yes Assessment & Plan - Problems (Diagnosis) (1) COPD exacerbation Current Visit: Yes Status: Acute Plan: Patient is 87 years of age admitted with COPD exacerbation and is doing much better reduce the dose of prednisone to 10 mg twice a day patient's blood sugar is elevated and increase the frequency of ipratropium Dc lisinopril due to elevated creatinine
[2017-10-01] MEDS: POTASSIUM CL SA 10 MEQ TAB PO SCH (12:00)
[2017-10-01] MEDS: predniSONE 10 MG TAB PO SCH ×2 (12:00→20:17)
[2017-10-01] MEDS: BENZONATATE 100 MG CAP PO PRN (16:53)
[2017-10-01] MEDS: ARFORMOTEROL TARTRATE 15 MCG/2 ML VIAL.NEB NEB SCH (19:51)
[2017-10-01] MEDS: SERTRALINE HCL 50 MG TAB PO SCH (20:17)
[2017-10-01] MEDS: ENOXAPARIN 30 MG/0.3 ML SQ SCH (20:17)
[2017-10-01] MEDS ORDERED: DOCUSATE NA 100 MG CAP PO ONE (21:58)
[2017-10-02] MEDS: IPRATROPIUM BROM 0.5MG/2.5ML NEB SCH ×4 (01:49→20:39)
[2017-10-02] MEDS: HUMALOG MIX 75/25 100 UNITS/ML SQ SCH ×2 (08:00→16:46)
[2017-10-02] MEDS: ARFORMOTEROL TARTRATE 15 MCG/2 ML VIAL.NEB NEB SCH ×2 (08:22→20:39)
[2017-10-02] MEDS: TIOTROPIUM IH SCH ×2 (09:00→12:58)
[2017-10-02] MEDS: ENSURE PUDDING 4 OZ CUP PO SCH ×2 (09:00→21:00)
[2017-10-02] MEDS: POTASSIUM CL SA 10 MEQ TAB PO SCH (09:00)
[2017-10-02] MEDS: DOCUSATE NA 100 MG CAP PO SCH ×2 (09:58→21:00)
[2017-10-02] MEDS: FUROSEMIDE 40 MG TABLET PO SCH (09:58)
[2017-10-02] MEDS: predniSONE 10 MG TAB PO SCH ×2 (09:59→21:50)
[2017-10-02] MEDS: INSULIN -REGULAR HUMAN 50 UNIT/0.5 ML ML SQ SCH ×4 (10:01→21:00)
--- NOTE | 2017-10-02 10:25 | P.PN ---
Subjective Date of Service: 10/02/17 Chief Complaint: COPD exacerbation Subjective: Improving (Pacing he is doing well no new complaints edema has declined eating and drinking and trying to ambulate) Review of Systems Unremarkable Physical Examination - Vital Signs Temperature: 98.4 F Blood Pressure: 131/97 Pulse: 97 Respirations: 18 Pulse Ox (%): 100 - Physical Exam General: Alert, Oriented x3 Respiratory: Clear to auscultation bilaterally, Diminished Cardiovascular: No edema, Normal S1 S2 - Studies Medications List Reviewed: Yes Assessment & Plan - Problems (Diagnosis) (1) COPD exacerbation Current Visit: Yes Status: Acute Plan: Patient admitted with COPD exacerbation doing much better vital signs in oxygenation satisfactory patient is using a home BiPAP awaiting transfer to a rehab or a sniff unit
[2017-10-02] MEDS: ONDANSETRON 4 MG/2 ML VIAL IV PRN (11:29)
[2017-10-02 11:56] LABS: Potassium 4.6 mmol/L (3.5-5.1)
[2017-10-02] MEDS: SERTRALINE HCL 50 MG TAB PO SCH (21:49)
[2017-10-02] MEDS: ENOXAPARIN 30 MG/0.3 ML SQ SCH (21:50)
[2017-10-03] MEDS: BENZONATATE 100 MG CAP PO PRN (00:44)
[2017-10-03] MEDS: IPRATROPIUM BROM 0.5MG/2.5ML NEB SCH ×2 (02:19→08:34)
[2017-10-03] MEDS: INSULIN -REGULAR HUMAN 50 UNIT/0.5 ML ML SQ SCH ×2 (07:30→12:29)
[2017-10-03] MEDS: HUMALOG MIX 75/25 100 UNITS/ML SQ SCH (08:00)
[2017-10-03] MEDS: ARFORMOTEROL TARTRATE 15 MCG/2 ML VIAL.NEB NEB SCH (08:34)
--- NOTE | 2017-10-03 08:39 | ECHO ---
HEIGHT: 5 ft 4 in WEIGHT: 152 lb 0 oz DATE OF STUDY: 09/30/[address]: 2-DIMENSIONAL: YES M.MODE: YES DOPPLER: YES COLOR FLOW: YES TDS: YES PORTABLE: NO DEFINITY: NO BUBBLE STUDY: NO DIAGNOSIS: CHEST PAIN CARDIAC HISTORY: CATHERIZATION: NO SURGERY: YES PROSTHETIC VALVE: NO PACEMAKER: YES MEASUREMENTS (cm) DIASTOLIC (NORMALS) SYSTOLIC (NORMALS) IVSd 1.3 (0.6-1.2) LA Diam 3.7 (1.9-4.0) LVEF 47% LVIDd 3.6 (3.5-5.7) LVIDs 2.8 (2.0-3.5) %FS 23% LVPWd 1.4 (0.6-1.2) Ao Diam 2.7 (2.0-3.7) 2 DIMENSIONAL ASSESSMENT: RIGHT ATRIUM: NORMAL LEFT ATRIUM: NORMAL RIGHT VENTRICLE: NORMAL LEFT VENTRICLE: NORMAL TRICUSPID VALVE: NORMAL MITRAL VALVE: MITRAL ANNULAR CALCIFICATION PULMONIC VALVE: NORMAL AORTIC VALVE: SCLEROSIS PERICARDIAL EFFUSION: NONE AORTIC ROOT: NORMAL LEFT VENTRICULAR WALL MOTION: MILD GLOBAL HYPOKINESIS DOPPLER/COLOR FLOW: MILD TRICUSPID REGURGITATION. COMMENTS: MITRAL TRICUSPID REGURGITATION. NORMAL RIGHT VENTRICULAR SYSTOLIC PRESSURE. AORTIC SCLEROSIS. MILD GLOBAL HYPOKINESIS. PACEMAKER IN RIGHT VENTRICULAR APEX. MITRAL ANNULAR CALCIFICATION. TECHNOLOGIST: TRINO BASHIR RDCS
[2017-10-03] MEDS: DOCUSATE NA 100 MG CAP PO SCH (08:52)
[2017-10-03] MEDS: predniSONE 10 MG TAB PO SCH (08:52)
[2017-10-03] MEDS: FUROSEMIDE 40 MG TABLET PO SCH (08:52)
[2017-10-03] MEDS: TIOTROPIUM IH SCH (08:55)
[2017-10-03] MEDS ORDERED: LORATADINE 10 MG TAB PO SCH (09:00)
[2017-10-03] MEDS: ENSURE PUDDING 4 OZ CUP PO SCH (09:00)
[2017-10-03] MEDS ORDERED: LISINOPRIL 5 MG TAB PO SCH (09:15)
[2017-10-03 12:10] LABS: Potassium 4.5 mmol/L (3.5-5.1)
[2017-10-03 12:40] VITALS: BP 107/52; TEMP 97.6
--- NOTE | 2017-10-03 12:55 | P.DS ---
Admission Date: 09/29/17 Discharge Date: 10/03/17 Primary Care Provider: Dr. Robles; Pulmonary-Dr. Robles Disposition: TRANSFER TO SNF - MEDICAL Discharge Condition: GOOD Reason for Admission: COPD exacerbation Consultations: Pulmonary-Dr. Myers Procedures: CT chest: COMPARISON: Thorax Wo Con dated 03/16/2017; Pet Ct Whole Body dated 06/09/2017 FINDINGS: Diffuse COPD is present. A crescentic linear area of scarring in the medial right upper lobe is noted, unchanged. No pleural thickening or pleural effusion. No pneumothorax. Focal soft tissue density is seen in the posterior right lower lobe bronchus (image 30/56). No axillary, mediastinal or hilar adenopathy. No concerning bony finding. Aortic atherosclerosis. All CT scans are performed using dose optimization technique as appropriate and may include automated exposure control or mA/KV adjustment according to patient size. IMPRESSION: Prominent COPD.No acute infiltrate identified. Small soft tissue density within the posterior right lower lobe bronchus may represent a mucous plug, aspirated material or endobronchial mass. Bronchoscopy may be considered if further assessment is clinically warranted. Modified barium swallow: COMPARISON: None. TECHNIQUE: The patient was given liquid, semi-solid and solid forms of barium. Lateral view fluoroscopic imaging was performed in conjunction with speech pathology service. FINDINGS: No aspiration was observed. There was laryngeal penetration on thin barium. Fluoro time was 1 minutes 8 seconds. A total of 10 cine loop acquisitions acquired. IMPRESSION: Modified barium swallow as detailed above and on speech pathology report. ECHO: Ejection fraction 47%. LEFT VENTRICULAR WALL MOTION: MILD GLOBAL HYPOKINESIS DOPPLER/COLOR FLOW: MILD TRICUSPID REGURGITATION. COMMENTS: MITRAL TRICUSPID REGURGITATION. NORMAL RIGHT VENTRICULAR SYSTOLIC PRESSURE. AORTIC SCLEROSIS. MILD GLOBAL HYPOKINESIS. PACEMAKER IN RIGHT VENTRICULAR APEX. MITRAL ANNULAR CALCIFICATION. - Problems (1) Acute respiratory failure Current Visit: Yes Status: Acute Qualifiers: Respiratory failure complication: hypoxia and hypercapnia Qualified Code(s) : J96.01 - Acute respiratory failure with hypoxia; J96.02 - Acute respiratory failure with hypercapnia (2) CHF (congestive heart failure) Onset Date: 09/30/17 Current Visit: Yes Status: Chronic Qualifiers: Heart failure type: combined systolic and diastolic Heart failure chronicity: acute on chronic Qualified Code(s): I50.43 - Acute on chronic combined systolic (congestive) and diastolic (congestive) heart failure (3) COPD (chronic obstructive pulmonary disease) Onset Date: 08/12/15 Current Visit: Yes Status: Chronic Qualifiers: COPD type: COPD with acute exacerbation Qualified Code(s): J44.1 - Chronic obstructive pulmonary disease with (acute) exacerbation (4) Chronic renal disease, stage 2, mildly decreased glomerular filtration rate (GFR) between 60-89 mL/min/1.73 square meter Onset Date: 12/18/15 Current Visit: Yes Status: Chronic (5) Lung cancer Onset Date: 12/18/15 Current Visit: Yes Status: Chronic Qualifiers: Laterality: unspecified laterality Lung location: unspecified part of lung Qualified Code(s): C34.90 - Malignant neoplasm of unspecified part of unspecified bronchus or lung (6) Dyspnea Current Visit: No Status: Acute Qualifiers: Dyspnea type: dyspnea on exertion Qualified Code(s): R06.09 - Other forms of dyspnea (7) Chronic use of steroids Current Visit: Yes Status: Chronic (8) Depression Current Visit: Yes Status: Chronic Qualifiers: Depression Type: unspecified Qualified Code(s): F32.9 - Major depressive disorder, single episode, unspecified (9) Diabetes mellitus Current Visit: Yes Status: Chronic Qualifiers: Diabetes mellitus type: type 2 Diabetes mellitus chcf insulin use: with chcf use Diabetes mellitus complication status: with other specified complication Qualified Code(s): E11.69 - Type 2 diabetes mellitus with other specified complication; 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 Patient has terminal COPD. She was found to be hypoxic with hypercapnia in the emergency room. Patient was recently hospitalized at a tertiary care center in in [place] for possible bleeding aneurysm. Patient has history of lung cancer treated in the past with radiation. Patient high risk for further intervention. Patient was hospitalized for COPD exacerbation. Hospital Course: Patient was admitted for shortness of breath secondary to terminal COPD with noted hypoxia and hypercapnia. Patient was evaluated by pulmonology. Patient did well with COPD treatment. Due to her terminal disease skilled placement was recommended prior to her going home. At discharge patient will be transferred to a skilled facility to continue rehabilitation. Patient has noninvasive ventilator at home. She will continue with noninvasive ventilator at the skilled facility. CT scan shows abnormality in the right lower lobe. Pulmonology felt the patient is high risk for any procedures therefore not a candidate for chemo or radiation. Patient with history of lung cancer. This is likely cancer related. Patient will continue with noninvasive ventilator at home. Pulmonology recommended to increase prednisone. At discharge she will continue with prednisone at 10 mg twice daily. She will also continue with COPD medication-Spiriva 1 puff once daily and Brovana 1 unit dose twice daily, albuterol 2 puffs 3 times a day as needed for shortness of breath. Patient will need a follow up with pulmonology in 1-2 weeks to follow up this hospitalization. Further adjustment in medication can be done by pulmonology at that time. Patient with CHF. Ejection fraction 47%. She will continue with a 1500 cc per day fluid restriction and low-salt diet. Lasix has been increased to 40 mg 1 pill daily. Recommendation is to monitor her BMP in 1 week. Patient has chronic renal disease is to monitor lab. Recommendation to recheck lab-BMP in 1 week to monitor progress. Patient may follow up with nephrology as an outpatient to further monitor. Future medications will need to be renally dosed. Patient has hypertension. Patient will continue with lisinopril 2.5 mg 1 pill daily and Bisoprolol 5 mg 1 pill daily. Recommendation is to maintain blood pressures less 150/80. Further adjustment can be done by her PCP. Patient has diabetes. Patient will continue with NovoLog 75/25 at 36 units once daily and 14 units at bedtime. Recommendation is to maintain blood sugars less 140 fasting and less than 200 after meals. Further adjustment can be done by her PCP. Patient has depression. She will continue with Zoloft 50 mg 1 pill at bedtime. Education on advanced directives will be provided to the patient prior to discharge. It is recommended that this be further address in the future as the patient has terminal COPD and likely with lung cancer. If her condition worsens she may benefit with hospice. This can be further addressed by her PCP. Vital Signs/Physical Exam: Temp Pulse Resp BP Pulse Ox 97.6 F 121 H 20 107/52 L 92 10/03/17 12:00 10/03/17 12:00 10/03/17 12:00 10/03/17 12:00 10/03/17 12:00 General: Alert, In no apparent distress, Oriented x3, Cooperative HEENT: Atraumatic Neck: Supple Respiratory: Expiratory wheezes (Bilateral) Cardiovascular: Normal pulses, Regular rate/rhythm Gastrointestinal: Normal bowel sounds, No ascites, No tenderness, No masses, No rebound, No guarding Musculoskeletal: No erythema, No tenderness, No warmth Integumentary: No erythema, No warmth, No cyanosis Neurological: Normal speech, Normal strength at 5/5 x4 extr, Normal tone, Normal affect Laboratory Data at Discharge: WBC 12.3 K/uL (4.3-10.9) H D 10/01/17 05:23 Hgb 11.5 g/dL (12.0-15.0) L 10/01/17 05:23 Hct 34.6 % (36.0-45.0) L 10/01/17 05:23 Plt Count 184 K/uL (152-406) 10/01/17 05:23 PT 12.4 SECONDS (9.5-12.5) 09/29/17 12:20 INR 1.05 09/29/17 12:20 Sodium 139 mmol/L (136-145) 10/03/17 11:03 Potassium 4.5 mmol/L (3.5-5.1) 10/03/17 11:03 BUN 38 mg/dL (7-18) H 10/03/17 11:03 Creatinine 1.60 mg/dL (0.55-1.3) H 10/03/17 11:03 Glucose 195 mg/dL (74-106) H 10/03/17 11:03 Magnesium 2.3 mg/dL (1.8-2.4) 09/29/17 12:00 Total Bilirubin 0.3 mg/dL (0.2-1.0) 10/01/17 05:23 AST 24 U/L (15-37) 10/01/17 05:23 ALT 20 U/L (12-78) 10/01/17 05:23 Alkaline Phosphatase 31 U/L (45-117) L 10/01/17 05:23 Home Medications: Bisoprolol Fumarate [Zebeta*] 5 mg PO DAILY AT SUPPER 08/11/15 Insulis Lispro MIX 75/25 [Humalog Mix 75/25*] 36 units SQ DAILY WITH BREAKFAST 08/11/15 L.acidoph,Paracasei, B.lactis [Probiotic] 1 cap PO DAILY 08/11/15 Potassium Chloride [Klor-Con M10] 10 meq PO DAILY 08/11/15 Sertraline [Zoloft*] 50 mg PO BEDTIME 08/11/15 Tiotropium [Spiriva Handihaler*] 18 mcg IH DAILY 08/11/15 Arformoterol Tartrate [Brovana] 15 mcg IH BID 08/12/15 Albuterol Sulfate [Proair Hfa] 2 puff IH QIDP PRN 12/18/15 Cholecalciferol (Vitamin D3) [Vitamin D 400 IU TAB*] 1 cap PO DAILY 12/18/15 Insulis Lispro MIX 75/25 [Humalog Mix 75/25*] 14 units SQ DAILY AT SUPPER Ubidecarenone [Co Q-10] 1 cap PO DAILY 12/18/15 Vit A,C & E/Lutein/Minerals [Ocuvite Tablet] 1 tab PO DAILY 12/18/15 Ascorbic Acid [Vitamin C] 200 mg PO DAILY 09/29/17 Lisinopril [Zestril] 2.5 mg PO DAILY 09/29/17 Triamcinolone Acetonide [Nasacort] 2 spr NS DAILY 09/29/17 Vit A,C & E/Lutein/Minerals [Ocuvite Tablet] 1 tab PO DAILY 09/29/17 Vitamin E 200 unit PO DAILY 09/29/17 Furosemide [Lasix*] 40 mg PO DAILY #30 tab 10/03/17 predniSONE [Deltasone*] 10 mg PO BID #60 tab 10/03/17 New Medications: Furosemide [Lasix*] 40 mg PO DAILY #30 tab predniSONE [Deltasone*] 10 mg PO BID #60 tab Patient Discharge Instructions: 1. Patient be transferred to skilled facility continue rehabilitation. 2. Patient was admitted for shortness of breath secondary to terminal COPD with noted hypoxia and hypercapnia. Patient is on chronic steroids and with noninvasive ventilator. Patient evaluated by pulmonology. CT scan shows abnormal structure in the right lower lobe likely cancer. Patient with history of lung cancer. Pulmonology recommends no intervention as she is high risk for procedures and chemotherapy or radiation. At discharge she will continue with her noninvasive ventilator. At discharge she will continue with prednisone at 10 mg twice daily. She will also continue with COPD medication-Spiriva 1 puff once daily and Brovana 1 unit dose twice daily, albuterol 2 puffs 3 times a day as needed for shortness of breath. Patient will need a follow up with pulmonology in 1-2 weeks to follow up this hospitalization. Further adjustment in medication can be done by pulmonology at that time. 3. Patient with CHF. Ejection fraction 47%. She will continue with a 1500 cc per day fluid restriction and low-salt diet. Lasix has been increased to 40 mg 1 pill daily. Recommendation is to monitor her BMP in 1 week. 4. Patient has chronic renal disease is to monitor lab. Recommendation to recheck lab-BMP in 1 week to monitor progress. Patient may follow up with nephrology as an outpatient to further monitor. Future medications will need to be renally dosed. 5. Patient has hypertension. Patient will continue with lisinopril 2.5 mg 1 pill daily and Bisoprolol 5 mg 1 pill daily. Recommendation is to maintain blood pressures less 150/80. Further adjustment can be done by her PCP. 6. Patient has diabetes. Patient will continue with NovoLog 75/25 at 36 units once daily and 14 units at bedtime. Recommendation is to maintain blood sugars less 140 fasting and less than 200 after meals. Further adjustment can be done by her PCP. 7. Patient has depression. She will continue with Zoloft 50 mg 1 pill at bedtime. 8. Recommendation is for the patient to address advanced directives in the near future. Information will be provided Diet: ADA Activity: Fall precautions Time spent managing pt's care (in minutes): 55
[2017-10-03 13:41] VITALS: O2SAT 96
== END 2017-10-03 15:29 | DRG 189 ==
LOC: ER 10:55 → ERHOLD 13:30 → 4TH 14:45
PROVIDERS: ADMIT Internal Medicine Hematology & Oncology; ATTEND Family Medicine
DX: J96.01 Acute respiratory failure with hypoxia (principal); I50.43 Acute on chronic combined systolic (congestive) and diastolic (congestive) heart failure; J44.1 Chronic obstructive pulmonary disease with (acute) exacerbation; I13.0 Hypertensive heart and chronic kidney disease with heart failure and stage 1 through stage 4 chronic kidney disease, or unspecified chronic kidney disease; J96.02 Acute respiratory failure with hypercapnia; R91.8 Other nonspecific abnormal finding of lung field; E11.22 Type 2 diabetes mellitus with diabetic chronic kidney disease; N18.2 Chronic kidney disease, stage 2 (mild); F32.9 Major depressive disorder, single episode, unspecified; I25.10 Atherosclerotic heart disease of native coronary artery without angina pectoris; E78.5 Hyperlipidemia, unspecified; E11.9 Type 2 diabetes mellitus without complications; Z85.118 Personal history of other malignant neoplasm of bronchus and lung; Z79.4 Long term (current) use of insulin; Z92.3 Personal history of irradiation; Z91.041 Radiographic dye allergy status; Z88.5 Allergy status to narcotic agent; Z88.0 Allergy status to penicillin; Z88.8 Allergy status to other drugs, medicaments and biological substances; Z91.048 Other nonmedicinal substance allergy status; Z95.1 Presence of aortocoronary bypass graft; Z79.52 Long term (current) use of systemic steroids; Z99.81 Dependence on supplemental oxygen
CPT/HCPCS: 36415; 71045; 71250; 74230; 80048; 80053; 80076; 81003; 82805; 82962; 83735; 83880; 84484; 85025; 85610; 87086; 87088; 93005; 93306; 94640; 97163; 99285; J1650; J2405; J2920; J7512; J7605

== ENCOUNTER 2018-01-30 12:39 | Day surgery (SDC) | payer OTHER, MEDICARE ==
--- OUTSIDE RECORDS SUMMARY | 2018-01-30 12:44 | XMS REPORT | Continuity of Care Document ---
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, total system (<span ID="[id number] uot;>Confirmed</s frank>) CAD (<span Resolved 02/14/18 Problem 08/07/2014 [place] ID="[id number]"> 93 Medical Confirmed</span>) Center Cardiomyopathy Resolved 02/14/18 Problem 08/07/[address] COPD Resolved 02/14/18 Problem 08/07/[address] HTN (<span Resolved 02/14/18 Problem 08/07/2014 [place] ID="[id number]"> 93 Medical Confirmed</span>) Center Diabetes Resolved 02/14/18 Problem 08/07/[address] Medications Medication Details Route Status Patient Ordering Order Source Instructions Provider Date bisoprolol 5 mg 5 mg=1 tab, PO, Active [facility] oral tablet Daily, # 30 tab, 2014 Medical 0 Refill(s) [place] 12 HR ranolazine 500 mg=1 tab, Active [place] 500 MG Extended PO, BID, # 30 2015 Medical Release Tablet tab, 0 Refill(s) [place] pantoprazole 40 40 mg=1 tab, PO, Active [facility] [place] mg oral enteric Daily, # 30 tab, 2015 Medical coated tablet 0 Refill(s) [place] Insulin Glargine 25 unit, SUB-Q, Active [place] 100 UNT/ML QAM, # 10 mL, 3 2014 Medical Injectable Refill(s) [place] Solution [Lantus] Metformin 500 mg=1 tab, Active [place] hydrochloride PO, BID-Meals, # 2015 Medical 500 MG Oral 60 tab, 0 Center Tablet Refill(s) acetaminophen 650 mg=2 tab, Active [place] 325 mg oral PO, Q4H, PRN 2015 Medical tablet Pain 1-3/Temp > Center 100.4 F, # 50 tab, 0 Refill(s) Zofran 4 mg, 2 mL, Inactive [place] Route: IVP, Drug 2014 Medical form: INJ, ONCE, Center Dosing Weight 74.29, kg, Start date: 08/01/14 9:14:00, Stop date: 08/01/14 9:14:00Notes: (Same as: Zofran) MEDICATION WASTE Product Size: 4 mg Product Wasted: __0_ mg sodium phosphate 15 mmol, 5 mL, Inactive [place] + Sodium Route: IVPB, 2014 Medical Chloride 0.9% IV ONCE, Dosing Center 250 mL Weight 74.29, kg, Start date: 08/01/14 7:27:00, Stop date: 08/01/14 7:27:00 Insulin, Aspart, 6 unit, 0.06 mL, No Longer [facility] Human Route: SUB-Q, Active 2014 Medical Drug form: SOLN, Center TID-Before Meals, Dosing Weight 74.29, kg, Start date: 07/31/14 16:30:00, Stop date: 08/30/14 11:30:00Notes: Roll in palms of hands gently; Do not shake vigorously. (Same as: NovoLOG) "single patient use only" Stable for 28 days at room temperature. Expires in days from [place] [facility] Insulin, Aspart, 2 unit, 0.02 mL, No Longer [place] Human Route: SUB-Q, Active 2014 Medical Drug [...] Insulin Glargine 15 unit, 0.15 No Longer [place] mL, Route: Active 2014 Medical [facility], Drug Center form: INJ, Daily, Dosing Weight 74.29, kg, Start date: 07/31/14 14:09:00, Duration: 30 day, Stop date: 08/30/14 9:00:00Notes: Same as Lantus Solostar PEN Do not hold insulin without contacting prescriber "single patient use only" Stable for 28 days at room temperature. Expires in days from [facility] te Insulin, Aspart 16 unit, 0.16 Inactive [place] Protamine, Human mL, Route: 2014 [facility] 70 UNT/ML / SUB-Q, Drug Center Insulin, Aspart, form: SUSP, Human 30 UNT/ML Before Injectable Breakfast, Suspension Dosing Weight 74.29, kg, Start date: 07/31/14 11:48:00, Duration: 30 day, Stop date: 08/30/14 7:30:00Notes: (Same as: NovoLOG Mix 70/30) NS 1,000 mL 1,000 mL, Rate: No Longer [place] 30 ml/hr, Infuse Active 2014 Medical over: 33.3 hr, Center Route: IV, Dosing Weight 74.29 kg, Total Volume: 1,000, Start date: 07/31/14 9:02:00, Stop date: 08/30/14 9:01:00 NovoLOG 70/30 36 unit, 0.36 Inactive [place] mL, Route: 2014 [facility], Drug Center form: SUSP, Breakfast, Dosing Weight 74.29, kg, Start date: 07/31/14 8:00:00, Duration: 30 day, Stop date: 08/29/14 8:00:00Notes: (Same as: NovoLOG Mix 70/30) Calcium 3 gm, 30 mL, No Longer [place] Gluconate Route: IVPB, Active 2014 Medical PRN, Dosing Center Weight 74.29, kg, PRN Abnormal Lab Result, For NON-ICU Patients Only., Start date: 07/31/14 6:15:00, Duration: 30 day, Stop date: 08/30/14 6:14:00 sodium phosphate 30 mmol, 10 mL, No Longer [place] + Sodium Route: IVPB, Active 2014 Medical Chloride 0.9% IV PRN, Dosing Center 250 mL Weight 74.29, kg, PRN Abnormal Lab Result, For NON-ICU Patients Only., Start date: 07/31/14 6:15:00, Duration: 30 day, Stop date: 08/30/14 6:14:00 Magnesium 1 gm, 100 mL, No Longer [place] Sulfate Route: IVPB, Active 2014 Medical Drug form: INJ, Center PRN, Dosing Weight 74.29, kg, PRN Abnormal Lab Result, For NON-ICU Patients Only., Start date: 07/31/14 6:15:00, Duration: 30 day, Stop date: 08/30/14 6:14:00 Magnesium Oxide 800 mg, 2 tab, No Longer [place] Route: PO, Drug Active 2014 Medical form: TAB, PRN, Center Dosing Weight 74.29, kg, PRN Abnormal Lab Result, For NON-ICU Patients Only., Start date: 07/31/14 6:15:00, Duration: 30 day, Stop date: 08/30/14 6:14:00Notes: (Same as: Mag-Ox 400) Magnesium oxide 510se=620if elemental magnesium Dose=____mg magnesium oxide (___mg elemental magnesium) potassium 2 pkt, Route: No Longer [place] phosphate-sodium PO, Drug Form: Active 2014 Medical phosphate 250 PDR/REC, Dosing Center mg-278 mg-164 mg Weight 74.29, oral powder kg, PRN, PRN Abnormal Lab Result, For NON-ICU Patients Only, Start date: 07/31/14 6:15:00, Duration: 30 day, Stop date: 08/30/14 6:14:00Notes: (Same as: Neutra-Phos) Each 1.25 gm pkt has 250mg phosphorous. Mix w/2.5oz water and stir. potassium 15 mmol, 5 mL, No Longer [place] phosphate + Route: IVPB, Active 2014 Medical [...] remove patch 1 patch, Route: No Longer [place] TOP, Drug form: Active 2014 Medical ERFILM, [...] 0.8 4 mg, 2 mL, No Longer [place] MG/ML Oral Route: IV, Drug Active 2014 Medical Solution form: INJ, Q8H, [place] [[facility]] Dosing Weight 74.29, kg, PRN as needed for nausea/vomiting, Start date: 07/30/14 18:08:00, Duration: 30 day, Stop date: 08/29/14 18:07:00Notes: (Same as: Zofran) MEDICATION WASTE Product Size: 4 mg Product Wasted: _0_ mg Ondansetron 0.8 4 mg, 5 mL, Inactive [place] MG/ML Oral Route: PO, Drug 2014 Medical Solution form: SOLN, Q8H, [place] [[facility]] Dosing Weight 74.29, kg, PRN as needed for nausea/vomiting, Start date: 07/30/14 17:42:00, Duration: 30 day, Stop date: 08/29/14 17:41:00Notes: (Same as: Zofran) Flumazenil 0.2 mg, 2 mL, No Longer [facility] Route: IVP, Drug Active 2014 Medical form: INJ, PRN, Center Dosing Weight 74.29, kg, PRN Benzodiazepine Reversal, Initial dose, Start date: 07/30/14 12:53:00, Stop date: 07/31/14 12:00:00Notes: (Same as: Romazicon) Hydromorphone 0.2 mg, 0.1 mL, No Longer [facility] Route: IVP, Drug Active 2014 Medical form: INJ, Center Q5Min, Dosing Weight 74.29, kg, PRN Pain Score 7-10, Start date: 07/30/14 12:53:00, Duration: 2 doses or times, Stop date: 07/31/14 12:00:00Notes: Same as: Dilaudid Naloxone 0.04 mg, 0.1 mL, No Longer [facility] Route: IVP, Drug Active 2014 Medical form: INJ, Center Q2MIN, Dosing Weight 74.29, kg, PRN Narcotic Reversal, Start date: 07/30/14 12:53:00, Duration: 8 doses or times, Stop date: 07/31/14 12:20:00Notes: Same as Narcan Promethazine 12.5 mg, 0.5 mL, Inactive [facility] Route: IVPB, 2014 Medical Drug form: INJ, Center ONCE, Dosing Weight 74.29, kg, PRN Nausea & Vomiting, Start date: 07/30/14 12:53:00Notes: Do not give IV push. (Same as: Phenergan) Ondansetron 4 mg, 2 mL, Inactive [facility] Route: IVP, Drug 2014 Medical form: INJ, ONCE, Center Dosing Weight 74.29, kg, PRN Nausea & Vomiting, Start date: 07/30/14 12:53:00Notes: (Same as: Zofran) MEDICATION WASTE Product Size: 4 mg Product Wasted: ___ mg Vancomycin 6.67 1.5 gm, Route: Inactive [facility] MG/ML Injectable IVPB, Drug form: 2014 Medical Solution INJ, ONCE, Center Dosing Weight 74.29, kg, Start date: 07/30/14 9:17:00, Stop date: 07/30/14 9:17:00 Bisoprolol 5 mg, 1 tab, No Longer [place] Route: PO, Drug Active 2014 Medical form: TAB, Center Daily, Dosing Weight 74.29, kg, Start date: 07/30/14 9:00:00, Duration: 30 day, Stop date: 08/28/14 9:00:00Notes: (Same As: Zebeta) 24 HR 1 patch, Route: No Longer [facility] Nitroglycerin TOP, Drug Form: Active 2014 [...] Prednisone 5 mg, 1 tab, No Longer [place] Route: PO, Drug Active 2014 Medical form: TAB, Center Daily, Dosing Weight 74.29, kg, Start date: 07/30/14 9:00:00, Duration: 30 day, Stop date: 08/28/14 9:00:00Notes: Take with food. Dextrose 50% 12.5 gm, Route: Inactive [place] Syringe IVP, Dosing 2014 Medical Weight 74.29, Center kg, ONCE, Start date: 07/30/14 7:19:00, Stop date: 07/30/14 7:19:00 Zofran 4 mg, 2 mL, Inactive [place] Route: IVP, Drug 2014 Medical form: INJ, ONCE, Center Dosing Weight 74.29, kg, Start date: 07/30/14 6:59:00, Stop date: 07/30/14 6:59:00Notes: (Same as: Zofran) MEDICATION WASTE Product Size: 4 mg Product Wasted: ___ mg PlasmaLyte A 1,000 mL, Rate: No Longer [place] PH-7.4 1,000 mL 50 ml/hr, Infuse Active 2014 Medical over: 20 hr, Center Route: IV, Dosing Weight 74.29 kg, Total Volume: 1,000, Start date: 07/30/14 0:00:00, Duration: 30 day, Stop date: 08/28/14 23:59:00 Acetylcysteine 600 mg, 3 mL, No Longer [facility] 200 MG/ML Route: PO, Drug Active 2014 Medical Inhalant form: SOLN, Center Solution Q12H, Dosing Weight 74.29, kg, give 6 doses, Start date: 07/29/14 21:00:00, Duration: 6 doses or times, Stop date: 08/01/14 9:00:00 NS 1,000 mL 1,000 mL, Rate: No Longer [facility] 60 ml/hr, Infuse Active 2014 Medical over: 16.7 hr, Center Route: IV, Dosing Weight 74.29 kg, Total Volume: 1,000, Start date: 07/29/14 20:27:00, Duration: 30 day, Stop date: 08/28/14 20:26:00 Ranexa 500 mg, 1 tab, No Longer [facility] Route: PO, Drug Active 2014 Medical form: TAB, BID, Center Dosing Weight 74.29, kg, Start date: 07/29/14 17:00:00, Duration: 30 day, Stop date: 08/28/14 9:00:00Notes: Same as Ranexa "Do Not Crush" Protonix 40 mg, 1 tab, No Longer [facility] Route: PO, Drug Active 2014 Medical form: ECTAB, Center Daily, Dosing Weight 74.29, kg, Start date: 07/29/14 9:00:00, Duration: 30 day, Stop date: 08/27/14 9:00:00Notes: Tablet should not be chewed or crushed. (Same as: Protonix) fluticasone 2 spray, Route: No Longer [facility] nasal 0.05 NASAL, Drug Active 2014 Medical mg/inh spray Form: SPRY, Center Daily, Start date: 07/28/14 9:00:00, Duration: 30 day, Stop date: 08/26/14 9:00:00Notes: (Same as: Flonase) Prednisone 10 mg, 1 tab, No Longer [facility] Route: PO, Drug Active 2014 Medical form: TAB, Center Daily, Dosing Weight 74.29, kg, Start date: 07/28/14 9:00:00, Duration: 30 day, Stop date: 08/26/14 9:00:00Notes: (Same as: PredniSONE) Take with food. 120 ACTUAT 100 microgram, 2 No Longer [facility] mometasone spray, Route: Active 2014 Medical furoate 0.05 NASAL, Daily, Center MG/ACTUAT Nasal Drug form: SPRY, Inhaler Start date: [Nasonex] 07/28/14 9:00:00, Duration: 30 day, Stop date: 08/26/14 9:00:00 Fish Oil 1,000 mg, 1 cap, No Longer [facility] Route: PO, Drug Active 2014 Medical form: CAP, Center Daily, Dosing Weight 74.29, kg, Start date: 07/28/14 9:00:00, Duration: 30 day, Stop date: 08/26/14 9:00:00Notes: (Same as: MaxEPA, [place] 3 fish oil ) Non-Formulary Drug Potassium 10 mEq, 1 tab, No Longer [place] Chloride 10 MEQ Route: PO, Drug Active 2014 Medical Extended Release form: ERTAB, Center Tablet Daily, Dosing Weight 74.29, kg, Start date: 07/28/14 9:00:00, Duration: 30 day, Stop date: 08/26/14 9:00:00Notes: (Same as: K-Dur 10) "Do Not Crush" With food and full glass of water tiotropium 0.018 18 microgram, 1 No Longer [facility] MG/ACTUAT inhalation, Active 2014 Medical Inhalant Powder Route: [place] [Spiriva] INHALATION, Drug form: CAP, Daily, Dosing Weight 74.29, kg, Start date: 07/28/14 9:00:00, Duration: 30 day, Stop date: 08/26/14 9:00:00Notes: (Same As: Spiriva). Loratadine 10 mg, 1 tab, No Longer [place] Route: PO, Drug Active 2014 Medical form: TAB, Center Daily, Dosing Weight 74.29, kg, Start date: 07/28/14 9:00:00, Duration: 30 day, Stop date: 08/26/14 9:00:00Notes: 1 hr before meals (Same as: Claritin) Furosemide 20 MG 20 mg, 1 tab, No Longer [place] Oral Tablet Route: PO, Drug Active 2014 Medical form: TAB, Center Daily, Dosing Weight 74.29, kg, Start date: 07/28/14 9:00:00, Duration: 30 day, Stop date: 08/26/14 9:00:00Notes: (Same as: Lasix) May cause GI upset. Give with food or milk. Coreg CR 40 mg, Route: No Longer [place] PO, QAM, Dosing Active 2014 Medical Weight 74.29, Center kg, Start date: 07/28/14 9:00:00, Duration: 30 day, Stop date: 08/26/14 9:00:00 NovoLOG 70/30 36 unit, 0.36 No Longer [place] mL, Route: Active 2014 Medical SUB-Q, Drug Center form: SUSP, Breakfast, Dosing Weight 74.29, kg, Start date: 07/28/14 8:00:00, Duration: 30 day, Stop date: 08/26/14 8:00:00Notes: (Same as: NovoLOG Mix 70/30) Albuterol 0.833 3 ml, Route: Inactive [place] MG/ML / NEB, Dosing 2014 Medical Ipratropium Weight 74.29, Center [place] 0.167 kg, RQ8H, Start MG/ML Inhalant date: 07/27/14 Solution 23:00:00, Duration: 30 day, Stop date: 08/26/14 15:00:00 Xopenex 0.63 mg, 3 mL, No Longer [place] Route: NEB, Drug Active 2014 Medical form: SOLN, Center RQ8H, Dosing Weight 74.29, kg, Start date: 07/27/14 23:00:00, Duration: 30 day, Stop date: 08/26/14 15:00:00, Substitute Allowed NoNotes: SEE RT DOCUMENTATION (Same as:Xopenex) Non-Formulary Insulin, Aspart, 8 unit, 0.08 mL, No Longer [place] Human Route: SUB-Q, Active 2014 Medical Drug [...] Glucagon 1 mg, Route: IM, No Longer [facility] Drug form: Active 2014 Medical PDR/INJ, PRN, Center Dosing Weight 74.29, kg, PRN Blood Glucose Results, Start date: 07/27/14 22:50:00, Duration: 30 day, Stop date: 08/26/14 22:49:00 Dextrose 50% 25 gm, 50 mL, No Longer [place] Syringe Route: IVP, Drug Active 2014 Medical Form: INJ, Center Dosing Weight 74.29, kg, PRN, PRN Blood Glucose Results, Start date: 07/27/14 22:50:00, Duration: 30 day, Stop date: 08/26/14 22:49:00 Insulin, Aspart, 10 unit, 0.1 mL, Inactive [facility] Human Route: SUB-Q, 2014 Medical Drug form: SOLN, Center ONCE, Dosing Weight 74.29, kg, Start date: 07/27/14 21:27:00, Stop date: 07/27/14 21:27:00Notes: Roll in palms of hands gently; Do not shake vigorously. (Same as: NovoLOG) "single patient use only" Stable for 28 days at room temperature. Expires in days from Da te Xopenex 0.63 mg, 3 mL, No Longer [facility] Route: NEB, Drug Active 2014 Medical form: SOLN, PRN, Center Dosing Weight 74.29, kg, PRN Respiratory Protocol, Start date: 07/27/14 18:23:00, Duration: 30 day, Stop date: 08/26/14 18:22:00, Substitute Allowed NoNotes: SEE RT DOCUMENTATION (Same as:Xopenex) Non-Formulary Coreg 12.5 mg, 1 tab, No Longer [facility] Route: PO, Drug Active 2014 Medical form: TAB, BID, Center Start date: 07/27/14 17:00:00, Duration: 30 day, Stop date: 08/26/14 9:00:00Notes: Give with food. (Same As: Coreg) Brovana 15 microgram, Inactive [facility] Route: NEB, Drug 2014 Medical form: [...] Docusate 100 mg, 1 cap, No Longer [facility] Route: PO, Drug Active 2014 Medical form: CAP, BID, Center Dosing Weight 74.29, kg, PRN Constipation, Start date: 07/27/14 17:00:00, Stop date: 08/26/14 9:00:00Notes: (Same as: Colace) (Do Not Crush) Insulin, Aspart, 4 unit, 0.04 mL, Inactive [facility] Human Route: SUB-Q, 2014 Medical Drug [...] Dextrose 50% 25 gm, 50 mL, Inactive [facility] Syringe Route: IVP, Drug 2014 Medical Form: INJ, Center Dosing Weight 74.29, kg, PRN, PRN Blood Glucose Results, Start date: 07/27/14 15:29:00, Duration: 30 day, Stop date: 08/26/14 15:28:00 Glucagon 1 mg, Route: IM, Inactive [facility] Drug form: 2014 Medical PDR/INJ, PRN, Center Dosing Weight 74.29, kg, PRN Blood Glucose Results, Start date: 07/27/14 15:29:00, Duration: 30 day, Stop date: 08/26/14 15:28:00 Hydralazine 10 mg, 0.5 mL, No Longer [facility] Route: IV, Drug Active 2014 Medical form: INJ, Q4H, Center Dosing Weight 74.29, kg, PRN Hypertension, Start date: 07/27/14 15:03:00, Duration: 30 day, Stop date: 08/26/14 15:02:00, SBP>130Notes: (Same as: Apresoline) Push over 5 minutes Enoxaparin 40 mg, 0.4 mL, No Longer [place] Route: SUB-Q, Active 2014 Medical Drug form: INJ, Center [id number], Dosing Weight 74.29, kg, Start date: 07/27/14 15:00:00, Duration: 30 day, Stop date: 08/25/14 15:00:00Notes: (Same as: Lovenox) Acetaminophen 650 mg, 2 tab, No Longer [facility] Route: PO, Drug Active 2014 Medical form: TAB, Q4H, Center Dosing Weight 74.29, kg, PRN Pain 1-3/Temp > 100.4 F, Start date: 07/27/14 14:52:00, Duration: 30 day, Stop date: 08/26/14 14:51:00Notes: Do not exceed 4 gm/day. (Same as: Tylenol) Ondansetron 4 mg, 2 mL, No Longer [facility] Route: IVP, Drug Active 2014 Medical form: INJ, ONCE, Center Dosing Weight 74.29, kg, PRN Nausea & Vomiting, Start date: 07/27/14 14:52:00Notes: (Same as: Zofran) MEDICATION WASTE Product Size: 4 mg Product Wasted: ___ mg arformoterol =1 ea, NEB, BID, Active [facility] 0.0075 MG/ML # 60 ea, 0 2014 Medical Inhalant Refill(s) Center Solution [Brovana] predniSONE 10 mg 10 mg=1 tab, PO, Active [facility] oral tablet Daily, # 7 tab, 2014 Medical 0 Refill(s) Center Furosemide 20 MG 20 mg=1 tab, PO, Active [facility] Oral Tablet Daily, # 30 tab, 2015 Medical 0 Refill(s) Center glimepiride 4 mg, PO, BID, 0 Active [facility] Refill(s) 2014 Medical Center 120 ACTUAT 2 spray, NASAL, Active [facility] mometasone Daily, In each 2014 Medical furoate 0.05 nostril, # 17 Center MG/ACTUAT Nasal gm, 1 Inhaler Refill(s)Special [Nasonex] Instructions: In each nostril loratadine 10 mg 10 mg=1 cap, PO, Active [facility] oral capsule Daily, # 10 cap, 2014 Medical 0 Refill(s) [place] Fenofibrate 145 145 mg=1 tab, Active [facility] MG Oral Tablet PO, Dinner, # 30 2015 Medical tab, 0 Refill(s) [place] Coreg CR 40 mg, PO, QAM, No Longer [facility] 0 Refill(s) Active 2014 Medical [place] NovoLOG 70/30 36, SUB-Q, No Longer [facility] Breakfast, 0 Active 2014 Medical Refill(s) [place] potassium 10 mEq=1 cap, Active [facility] chloride 10 mEq PO, Daily, # 30 2015 Medical oral capsule, cap, 1 Refill(s) [place] extended release tiotropium 0.018 18 microgram=1 Active 07/[facility] MG/ACTUAT cap, INHALATION, 2015 Medical Inhalant Powder Daily, Use two Center [Spiriva] inhalations of one capsule for each dose, # 30 cap, 1 Refill(s)Special Instructions: Use two inhalations of one capsule for each dose Probiotic 1 cap, PO, Active [facility] Formula oral Daily, 0 2014 Medical capsule Refill(s) [place] Co Q-10 100 mg 100 mg=1 cap, Active [facility] oral capsule PO, Daily, 0 2015 Medical Refill(s) [place] Fish Oil 1000 mg 1,000 mg=1 cap, Active [facility] oral capsule PO, Daily, 0 2014 Medical Refill(s) [place] vitamin E 200 =1 tab, PO, Active 07/27[facility] intl units oral Daily, # 14 tab, 2015 Medical tablet 0 Refill(s) [facility] Vitamin D3 400 400 IntlUnit=1 Active 07/27[facility] intl units oral cap, PO, Daily, 2015 Medical capsule 0 Refill(s) [place] Vitamin C 500 mg 1,000 mg=2 cap, Active 07/27[facility] oral capsule PO, Daily, # 30 2015 Medical cap, 0 Refill(s) Center Allergies, Adverse Reactions, Alerts Substance Category Reaction Severity Reaction Status Date Comments Source type Reported Adhesive Tape Assertion Drug Active [facility] codeine Assertion Drug Active [facility] penicillins Assertion Drug Active [facility] Immunizations Immunization Date Given Site Status Last Updated Comments Source Results Order Name Results Value Reference Date Interpretation Comments Source Range Chest 1view Chest 1view EXAM: XR CHEST 1 VIEW 09/22 - [facility] DATE: 09/22/2017 3:00 AM CDT Read [...] EXAM: XR CHEST 1 VIEW 09/21 - [facility] DATE: 09/21/2017 3:00 AM CDT Read by: Marilyn Zapata MD Dictated Date/time: 09/21/17 09:05 Electronically Signed by: Marilyn Zapata MD 09/21/17 10:14 FINAL REPORT INDICATION: - Lung congestion. FINDINGS: Comparison is made to September 20. Cardiomediastinal silhouette and postoperative changes are stable. Aortic and coronary artery calcifications. 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 The lungs are clear and well-expanded. There are no pleural effusions. IMPRESSION: The lungs are clear. Chest 1view Chest 1view EXAM: XR CHEST 1 VIEW 09/20 - [facility] - [facility] DATE: 09/20/2017 3:00 AM CDT Read [...] Retroperito Retroperitone EXAM: US RENAL 09/19 - [facility] sasha al Complete - Medical Complete US US This report was dictated by a Lightout Examiner/ Fellow. I have personally reviewed the images [...] EXAM: FLUOROSCOPY MODIFIED BARIUM SWALLOW 09/19 - [facility] BA swallow swallow - Medical function function This report was dictated by a Lightout Examiner/ Fellow. I have personally reviewed the images [...] of different consistencies. Thin barium: Silent aspiration. [place] barium: Normal. Pudding barium: Normal. Solid with barium: Normal. IMPRESSION: 1. Silent aspiration with thin barium consistency. 2. Please also see detailed chart note by speech pathology. Chest 1view Chest 1view EXAM: XR CHEST 1 VIEW 09/19 - [facility] DX /2017 [facility] DATE: 09/19/2017 3:00 AM CDT Read [...] EXAM: XR CHEST 1 VIEW 09/18 - [facility] DX /2017 [facility] DATE: 09/18/2017 3:00 AM CDT Read [...] 1view EXAM: XR CHEST 1 VIEW 09/17 [facility]2017 [facility] DATE: 09/17/2017 3:00 AM CDT Read [...] 1view EXAM: XR CHEST 1 VIEW 09/16 [facility] DATE: 09/16/2017 3:00 AM CDT Read [...] 1view EXAM: XR CHEST 1 VIEW 09/15 [facility] DATE: 09/15/2017 6:04 AM CDT Read [...] Lvl 1.9 mg/dL 1.8 - 2.4 08/[address] CHEM PANEL Phosphorus 3.1 mg/dL 2.5 - 4.5 08/[address] CHEM PANEL A/G Ratio 0.7 0.7 - 1.6 08/[address] CHEM PANEL Bili Indirect 0.4 mg/dL 0.0 - 1.0 08/[address] CHEM PANEL Bili Direct 0.2 mg/dL 0.0 - 0.3 08/[address] CHEM PANEL Globulin 3.3 g/dL 2.0 - 4.0 08/[address] CHEM PANEL Bili Total 0.6 mg/dL 0.2 - 1.3 08/[address] CHEM PANEL Alk Phos 38 unit/L 39 - 136 08/[address] CHEM PANEL AST 12 unit/L 0 - 37 08/[address] CHEM PANEL ALT 18 unit/L 0 - 65 08/[address] CHEM PANEL Albumin Lvl 2.4 g/dL 3.5 - 5.0 08/[address] CHEM PANEL Total Protein 5.7 g/dL 6.4 - 8.4 08/[address] ELECTROLYTE AGAP 11.2 meq/L 10.0 - 08/04 [facility] 20.0 [facility] ELECTROLYTE eGFR 35 08/04 1Result Comment: The eGFR is calculated using the CKD-EPI formula. In most young, healthy individuals the eGFR will be > 90 mL/min/1.73m2. The eGFR declines with age. An eGFR of 60-89 may be normal in [facility] mL/min/1.7 /2014 some populations, particularly the elderly, for whom the CKD-EPI formula has not been extensively validated. Use of the eGFR is not recommended in the following populations: Medical [facility] Individuals with unstable creatinine concentrations, including [...] CO2 29 meq/L 24 - 32 08/04 [facility] ELECTROLYTE Calcium Lvl 9.0 mg/dL 8.5 - 10.5 08/04 [facility] ELECTROLYTE Chloride Lvl 103 meq/L 95 - 109 08/04 [facility] ELECTROLYTE BUN 14 mg/dL 7 - 08/04 [facility] ELECTROLYTE Creatinine 1.4 mg/dL 0.5 - 1.4 08/04 [facility] ELECTROLYTE Potassium Lvl 4.2 meq/L 3.5 - 5.1 08/04 [facility] ELECTROLYTE Sodium Lvl 139 meq/L 135 - 145 08/04 [facility] ELECTROLYTE Glucose Lvl 196 mg/dL 70 - 99 08/04 4Interpretive Data: Adult reference range values reflect the clinical guidelines of the [place] [employer]. [facility] HEMATOLOGY MCHC 33.6 g/dL 32.0 - 08/04 36.0 [facility] HEMATOLOGY RDW 13.9 % 11.5 - 08/04 14. [facility] HEMATOLOGY MPV 8.0 fL 7.4 - 10.4 08/04 [facility] HEMATOLOGY Platelet 156 K/CMM 133 - 450 08/04 [facility] HEMATOLOGY RBC 2.87 M/CMM 4.20 - 08/04 5.40 [facility] HEMATOLOGY Hgb 9.0 g/dL 12.0 - 08/04 16. [facility] HEMATOLOGY Hct 26.8 % 36.0 - 08/04 [place] 48.0 [facility] HEMATOLOGY MCV 93.6 fL 80.0 - 08/04 [place] 98.0 [facility] HEMATOLOGY MCH 31.4 pg 27.0 - 08/04 [place] 31.0 [facility] HEMATOLOGY WBC 7.1 K/CMM 3.7 - 10.4 08/04 [facility] HEMATOLOGY Lymphocytes 30.8 % 20.0 - 08/04 [place] 40.0 [facility] HEMATOLOGY Monocytes 9.9 % 2.0 - 12.0 08/04 2014 [facility] HEMATOLOGY Eosinophils 5.0 % 0.0 - 4.0 08/04 [facility] HEMATOLOGY Basophils 0.6 % 0.0 - 1.0 08/04 [facility] HEMATOLOGY Segs 53.7 % 45.0 - 08/04 [place] 75.0 [facility] HEMATOLOGY Eosinophils # 0.4 K/CMM 0.0 - 0.5 08/04 [facility] HEMATOLOGY Monocytes # 0.7 K/CMM 0.0 - 0.8 08/04 2014 [facility] HEMATOLOGY Segs-Bands # 3.8 K/CMM 1.5 - 8.1 08/04 [facility] HEMATOLOGY Lymphocytes # 2.2 K/CMM 1.0 - 5.5 08/04 [facility] PARATHYROID Ca Ion WB 1.17 1.05 - 08/04 [facility] PROFILE mMol/L 1. [facility] PARATHYROID Ca Norm WB 1.18 1.05 - 08/04 [facility] PROFILE mMol/L 1. [facility] CHEM PANEL Magnesium Lvl 1.9 mg/dL 1.8 - 2.4 08/03 [facility] CHEM PANEL Phosphorus 2.7 mg/dL 2.5 - 4.5 08/03 [facility] ELECTROLYTE AGAP 11.2 meq/L 10.0 - 08/03 [facility] S 20.0 [facility] ELECTROLYTE Glucose Lvl 180 mg/dL 70 - 99 08/03 5Interpretive Data: Adult reference range values reflect the clinical guidelines [facility] of the [place] [employer]. [facility] ELECTROLYTE CO2 28 meq/L 24 - 32 08/03 [facility] ELECTROLYTE BUN 11 mg/dL 7 - 22 08/03 [facility]2014 [facility] ELECTROLYTE eGFR 42 08/03 2Result Comment: The eGFR is calculated using the CKD-EPI formula. In most young, healthy individuals the eGFR will be > 90 mL/min/1.73m2. The eGFR declines with age. An eGFR of 60-89 may be normal in [facility] mL/min/1. /2014 some populations, particularly the elderly, for whom the CKD-EPI formula has not been extensively validated. Use of the eGFR is not recommended in the following populations: Medical [address] [place] [address] Individuals with unstable creatinine concentrations, including patients [...] Lvl 8.4 mg/dL 8.5 - 10.5 08/03 [facility]2014 [facility] ELECTROLYTE Chloride Lvl 107 meq/L 95 - 109 08/[address] ELECTROLYTE Potassium Lvl 4.2 meq/L 3.5 - 5.1 08/03 [facility]2014 [facility] ELECTROLYTE Sodium Lvl 142 meq/L 135 - 145 08/[address] ELECTROLYTE Creatinine 1.2 mg/dL 0.5 - 1.4 08/03 [facility] HEMATOLOGY Segs 56.7 % 45.0 - 08/03 [facility] 75.0 [facility] HEMATOLOGY Segs-Bands # 4.3 K/CMM 1.5 - 8.1 08/[address] HEMATOLOGY Basophils 0.8 % 0.0 - 1.0 08/[address] HEMATOLOGY Monocytes 9.1 % 2.0 - 12.0 08/[address] HEMATOLOGY Lymphocytes 29.0 % 20.0 - 08/03 [facility] 40.0 [facility] HEMATOLOGY Eosinophils 4.4 % 0.0 - 4.0 08/[address] HEMATOLOGY Basophils # 0.1 K/CMM 0.0 - 0.2 08/[address] HEMATOLOGY Lymphocytes # 2.2 K/CMM 1.0 - 5.5 08/[address] HEMATOLOGY Eosinophils # 0.3 K/CMM 0.0 - 0.5 08/[address] HEMATOLOGY Monocytes # 0.7 K/CMM 0.0 - 0.8 08/03 [facility] HEMATOLOGY RBC 2.64 M/CMM 4.20 - 08/03 [facility] 5.40 /2014 [facility] HEMATOLOGY WBC 7.6 K/CMM 3.7 - 10.4 08/03 [facility] HEMATOLOGY Hct 24.7 % 36.0 - 08/03 [facility] 48.0 [facility] HEMATOLOGY Hgb 8.3 g/dL 12.0 - 08/03 16.0 [facility] HEMATOLOGY MCHC 33.8 g/dL 32.0 - 08/03 [facility] 36.0 [facility] HEMATOLOGY MCH 31.6 pg 27.0 - 08/03 [facility] 31.0 [facility] HEMATOLOGY Platelet 113 K/CMM 133 - 450 08/03 [facility] HEMATOLOGY RDW 13.5 % 11.5 - 08/03 [facility] 14.5 [facility] HEMATOLOGY MPV 8.0 fL 7.4 - 10.4 08/03 [facility] HEMATOLOGY MCV 93.5 fL 80.0 - 08/03 [facility] 98.0 [facility] PARATHYROID Ca Norm WB 1.14 1.05 - 08/03 [facility] PROFILE mMol/L 1. [facility] PARATHYROID Ca Ion WB 1.14 1.05 - 08/03 [facility] PROFILE mMol/L 1. [facility] CHEM PANEL Magnesium Lvl 1.9 mg/dL 1.8 - 2.4 08/02 [facility] CHEM PANEL Phosphorus 1.8 mg/dL 2.5 - 4.5 08/02 [facility] ELECTROLYTE AGAP 13.0 meq/L 10.0 - 08/02 [facility] S 20.0 [facility] ELECTROLYTE eGFR 42 08/02 3Result Comment: The eGFR is calculated using the CKD-EPI formula. In most young, healthy individuals the eGFR will be > 90 mL/min/1.73m2. The eGFR declines with age. An eGFR of 60-89 may be normal in [facility] mL/min/1. some populations, particularly the elderly, for whom the CKD-EPI formula has not been extensively validated. Use of the eGFR is not recommended in the following populations: [address] Individuals with unstable creatinine concentrations, including [...] Lvl 7.7 mg/dL 8.5 - 10.5 08/02 [facility] ELECTROLYTE CO2 25 meq/L 24 - 32 08/02 [facility] ELECTROLYTE Chloride Lvl 109 meq/L 95 - 109 08/02 [facility]2014 [facility] ELECTROLYTE Potassium Lvl 4.0 meq/L 3.5 - 5.1 08/02 [facility]2014 [facility] ELECTROLYTE Glucose Lvl 171 mg/dL 70 - 99 08/02 6Interpretive Data: Adult reference range values reflect the clinical guidelines [facility] of the [place] [employer]. [facility] ELECTROLYTE BUN 11 mg/dL 7 - 22 08/02 [facility] 2014 [facility] ELECTROLYTE Sodium Lvl 143 meq/L 135 - 145 08/02 [facility]2014 [facility] ELECTROLYTE Creatinine 1.2 mg/dL 0.5 - 1.4 08/02 [facility] HEMATOLOGY Eosinophils # 0.3 K/CMM 0.0 - 0.5 08/02 [facility]2014 [facility] HEMATOLOGY Lymphocytes # 2.3 K/CMM 1.0 - 5.5 08/02 [facility]2014 [facility] HEMATOLOGY Monocytes # 0.7 K/CMM 0.0 - 0.8 08/02 [facility] HEMATOLOGY Lymphocytes 23.7 % 20.0 - 08/02 [facility] 40.0 [facility] HEMATOLOGY Monocytes 7.6 % 2.0 - 12.0 08/02 [facility]2014 [facility] HEMATOLOGY Eosinophils 2.6 % 0.0 - 4.0 08/02 [facility]2014 [facility] HEMATOLOGY Basophils 0.2 % 0.0 - 1.0 08/02 [facility]2014 [facility] HEMATOLOGY Segs-Bands # 6.4 K/CMM 1.5 - 8.1 08/02 [facility]2014 [facility] HEMATOLOGY Segs 65.9 % 45.0 - 08/02 [place] 75.0 [facility] HEMATOLOGY MPV 8.0 fL 7.4 - 10.4 08/02 [facility] HEMATOLOGY Platelet 101 K/CMM 133 - 450 08/02 [facility] HEMATOLOGY Hct 25.8 % 36.0 - 08/02 [place] 48.0 /2014 [facility] HEMATOLOGY MCV 93.9 fL 80.0 - 08/02 [facility] 98.0 /2014 [facility] HEMATOLOGY WBC 9.7 K/CMM 3.7 - 10.4 08/02 [facility] HEMATOLOGY RBC 2.74 M/CMM 4.20 - 08/02 [facility] 5.40 /2014 [facility] HEMATOLOGY Hgb 8.6 g/dL 12.0 - 08/02 [place] 16.0 /2014 [facility] HEMATOLOGY MCHC 33.3 g/dL 32.0 - 08/02 [place] 36.0 [facility] HEMATOLOGY RDW 13.7 % 11.5 - 08/02 [facility] 14.5 /2014 [facility] HEMATOLOGY MCH 31.3 pg 27.0 - 08/02 [facility] 31.0 [facility] PARATHYROID Ca Ion WB 1.11 1.05 - 08/02 [facility] PROFILE mMol/L 1. [facility] PARATHYROID Ca Norm WB 1.14 1.05 - 08/02 [facility] PROFILE mMol/L 1.25 [facility] MOLECULAR C difficile Negative 11 Negative 07/31 11Interpretive Data: [employer] illumigene Clostridium difficile assay utilizes loop-mediated isothermal DNA amplification (LAMP) technology to detect a 204 bp region of the tcdA gene within the PaLoc gene [facility] segment present in all known toxigenic C. difficile strains. [facility] (07/31/14 3:20 PM) [place] The assay utilizes FDA cleared IVD reagents. Performance characteristics have been verified by the Molecular Diagnostic Laboratory within the [facility]. The Molecular Diagnostic Laboratory is authorized under the Clinical Laboratory Improvement Amendment of 1988 (CLIA-88) to perform high complexity testing. CARDIAC proBNP 1385 pg/mL 0 - 450 07/31 [facility] ENZYMES [facility] HEMATOLOGY Basophils # 0.1 K/CMM 0.0 - 0.2 07/31 [facility] BLOOD BANK FFP product Product available 07/30 [facility] (07/30/14 9:17 AM) [place] BLOOD BANK RBC product Product available 07/30 [facility] (07/30/14 9:17 AM) [place] CHEM PANEL Bili Indirect 0.4 mg/dL 0.0 - 1.0 07/30 [facility] CHEM PANEL Bili Total 0.5 mg/dL 0.2 - 1.3 07/30 [facility] CHEM PANEL Bili Direct 0.1 mg/dL 0.0 - 0.3 07/30 2014 [facility] CHEM PANEL ALT 20 unit/L 0 - 65 07/30 [facility] CHEM PANEL A/G Ratio 1.0 0.7 - 1.6 07/30 [facility] CHEM PANEL Albumin Lvl 3.1 g/dL 3.5 - 5.0 07/30 [facility]2014 [facility] CHEM PANEL Total Protein 6.2 g/dL 6.4 - 8.4 07/30 [facility]2014 [facility] CHEM PANEL Globulin 3.1 g/dL 2.0 - 4.0 07/30 2014 [facility] CHEM PANEL Alk Phos 40 unit/L 39 - 136 07/30 [facility] CHEM PANEL AST 43 unit/L 0 - 37 07/30 [facility] HEMATOLOGY Basophils # 0.1 K/CMM 0.0 - 0.2 07/30 [facility] LIPIDS VLDL 74 07/30 [facility] LIPIDS LDL 62 mg/dL <=99 mg/dL 07/30 [facility] (Calculated) [facility] LIPIDS Trig 369 mg/dL <=149 07/30 [facility] mg/dL [facility] LIPIDS Chol 191 mg/dL <=199 07/30 [facility] mg/dL [facility] LIPIDS HDL 55 mg/dL >=61 mg/dL 07/30 [facility] LIPIDS CHD Risk 3.47 3.90 - 07/30 [place] 5.80 /2014 [facility] BLOOD BANK Platelet Product available 07/30 [facility] RESULTS product Medical (07/30/14 4:00 AM) [place] BLOOD BANK FFP product Product available 07/30 RESULTS /2014 Medical (07/30/14 4:00 AM) [place] BLOOD BANK RBC product Product available 07/30 [facility] RESULTS Medical (07/30/14 4:00 AM) [place] BLOOD BANK Antibody Scrn Negative 07/29 RESULTS Medical (07/29/14 3:21 PM) [place] BLOOD BANK ABO/Rh A POS 07/29 [facility] RESULTS [facility] CHEM PANEL Uric Acid 3.6 mg/dL 2.5 - 7.0 07/29 [facility] HEMATOLOGY PTT 25.8 s 22.9 - 07/29 9Interpretive [facility] 35.8 /2014 Data: Heparin [facility] Range: 57 - 92 [facility] HEMATOLOGY INR 1.01 0.85 - 07/29 7Interpretive Data: RECOMMENDED RANGES FOR PROTIME INR: [facility] 1. 2.0-3.0 for most medical and surgical thromboembolic states. [facility] 2.5-3.5 for artificial heart valves and recurrent embolism. Center INR SHOULD BE USED ONLY FOR PATIENTS ON STABLE ANTICOAGULANT THERAPY. HEMATOLOGY PT 13.3 s 12.0 - 07/29 [facility] 14.7 [facility] IMMUNOLOGY C3 Complement 99 mg/dL 88 - 201 07/29 [facility] IMMUNOLOGY C4 Complement 25 mg/dL 16 - 47 07/29 [facility] PARATHYROID PTH Intact 66.8 pg/mL 11.1 - 07/29 [facility] PROFILE 79.5 [facility] CARDIAC proBNP 1634 pg/mL 0 - 450 07/29 [facility] ENZYMES [facility] URINE AND UA Ketones Negative Negative 07/28 [facility] STOOL mg/dL mg/dL /2014 [facility] URINE AND UA Glucose 200 mg/dL Negative 07/28 [facility] STOOL mg/dL /2014 [facility] URINE AND UA Blood Negative Negative 07/28 [facility] (07/28/14 1:10 PM) [place] URINE AND UA Bili Negative Negative 07/28 [facility] Medical *NA* [place] (07/28/14 1:10 PM) URINE AND UA <=1.0 0.1 - 1.0 07/28 [facility] Urobilinogen mg/dL /2014 [facility] URINE AND UA Leuk Est Negative Negative 07/28 [facility] (07/28/14 1:10 PM) [place] URINE AND UA Nitrite Negative Negative 07/28 [facility] (07/28/14 1:10 PM) [place] URINE AND UA Sq Epi Occasional Few /LPF 07/28 [facility] STOOL /LPF /2014 [facility] URINE AND UA Turbidity Clear Clear 07/28 [facility] (07/28/14 1:10 PM) [place] URINE AND UA Color Light Yellow Yellow 07/28 [facility] Medical *NA* Center (07/28/14 1:10 PM) URINE AND UA pH 6.0 5.0 - 8.0 07/28 [facility] URINE AND UA Spec Grav 1.006 <=1.030 07/28 [facility] URINE AND UA Protein Negative Negative 07/28 [facility] STOOL mg/dL mg/dL [facility] SPECIAL Hgb A1C 8.1 % <=5.6 % 07/28 [facility] CHEMISTRY [address] [place] [address] CHEM PANEL Bili Total 0.5 mg/dL 0.2 - 1.3 07/27 [facility]2014 [facility] CHEM PANEL Alk Phos 41 unit/L 39 - 136 07/[address] CHEM PANEL AST 25 unit/L 0 - 37 07/[address] CHEM PANEL ALT 21 unit/L 0 - 65 07/[address] CHEM PANEL Albumin Lvl 3.2 g/dL 3.5 - 5.0 07/27 [facility] [address] [place] [address] CHEM PANEL Total Protein 6.0 g/dL 6.4 - 8.4 07/[address] CHEM PANEL A/G Ratio 1.1 0.7 - 1.6 07/[address] CHEM PANEL Globulin 2.8 g/dL 2.0 - 4.0 07/[address] CHEM PANEL B/C Ratio 16 6 - 25 07/[address] HEMATOLOGY PTT 27.7 s 22.9 - 07/27 10Interpretiv [facility] 35.8 /2015 e Data: [facility] Range: 57 - 92 Seconds HEMATOLOGY PT 13.7 s 12.0 - 07/27 [facility] 14.7 [facility] HEMATOLOGY INR 1.05 0.85 - 07/27 8Interpretive Data: RECOMMENDED RANGES FOR PROTIME INR: [facility] 1. 2.0-3.0 for most medical and surgical thromboembolic states. Medical 2.5-3.5 for artificial heart valves and recurrent embolism. Center INR SHOULD BE USED ONLY FOR PATIENTS ON STABLE ANTICOAGULANT THERAPY. Vital Signs Vital Sign Value Date Comments Source Respitory Rate 18 08/04/2014 [facility] Systolic (mm Hg) 119 08/04/2014 [facility] Diastolic (mm Hg) 53 08/04/2014 [facility] Systolic (mm Hg) 98 08/04/2014 [facility] Diastolic (mm Hg) 48 08/04/2014 [facility] Systolic (mm Hg) 117 08/04/2014 [facility] Diastolic (mm Hg) 60 08/04/2014 [facility] Respitory Rate 18 08/04/2014 [facility] Temperature Oral (F) 99.0 F 08/04/2014 [facility] Respitory Rate 18 08/04/2014 [facility] Temperature Oral (F) 98.4 F 08/04/2014 [facility] Temperature Oral (F) 98.5 F 08/04/2014 [facility] Height 162.56 cm 07/27/2014 [facility] BMI Calculated 28.11 07/27/2014 [facility] Weight 74.29 07/27/2014 [facility] Encounters Location Location Encounter Encounter Reason Attending ADM DC Status Source Details Type Number For Provider Date Date Visit [facility] [id number] Rick 07/27 08/04 [facility] Watson Munguia /2014 [facility] Procedures Procedure Code Date Perfomer Comments Source CABG x 3 - Coronary [id number] 07/16/1999 [facility] artery bypass grafts Medical x 3 Center Cholecystectomy [id number] 02/14/1973 [facility] Bladder operation [id number] 02/14/1953 [facility]
[2018-01-30] MEDS ORDERED: BUPIVACAINE 0.25% PF 30 ML VIAL ONE (13:11)
[2018-01-30] MEDS ORDERED: NA CHLORIDE 0.9% 500 ML ONE (13:11)
[2018-01-30] MEDS ORDERED: LIDOCAINE 2% INJ, MPF 2 ML 1 ML ONE (13:12)
[2018-01-30] MEDS ORDERED: TETRACAINE HCL 0.5% 2ML OPTH ONE (13:12)
[2018-01-30 13:15] VITALS: TEMP 97.7
[2018-01-30] MEDS ORDERED: NS 0.9% VIAL 10 ML ONE (13:30)
[2018-01-30] MEDS ORDERED: BSS PLUS 500 ML BOTTLE IRR ONE (13:31)
[2018-01-30] MEDS ORDERED: MOXIFLOXACIN HCL 10 DROPS/ML **OR USE OPTH ONE (13:31)
[2018-01-30] MEDS: CYCLOPENTOLATE 1% OPTH 2 ML ONE ×3 (13:40→13:50)
[2018-01-30] MEDS: PHENYLEPHRINE 10% OPTH 5ML ONE ×3 (13:40→13:50)
[2018-01-30] MEDS ORDERED: ONDANSETRON 4 MG/2 ML VIAL ONE (14:36)
[2018-01-30] MEDS ORDERED: PROPOFOL 200 MG/20 ML VIAL IV ONE (14:50)
[2018-01-30] MEDS ORDERED: LIDOCAINE 1% MPF 2 ML AMPULE ONE (14:51)
[2018-01-30] MEDS ORDERED: DUOVISC 1 KIT OPTH ONE (15:01)
[2018-01-30] MEDS: BALANCED SALT IRRIG PLAIN 500 ML BTL IRR ONE ×2 (15:37→15:51)
[2018-01-30] MEDS: EPINEPHRINE/PF 1 MG/ML AMP ONE ×2 (15:37→15:51)
[2018-01-30] MEDS: DUOVISC 1 KIT OPTH ONE ×3 (15:53→16:03)
--- NOTE | 2018-01-30 16:17 | P.BOP ---
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
[2018-01-30 16:22] VITALS: BP 130/52; O2SAT 94
--- NOTE | 2018-01-31 03:07 | OP ---
Date of Procedure: 01/30/2018 Surgeon: Mary Mccarty MD Anesthesiologist: Beka Kessler CRNA and Nicho Walker M.D. Preoperative Diagnosis: Nuclear sclerotic cataract and Fuchs dystrophy, left eye. Operation Performed: Phacoemulsification with intraocular lens implant, left eye. Anesthesia: Per cataract surgery. Complications: None. Description Of Procedure: In day surgery, the patient was prepped with Betadine and draped. A conju nctival incision was made in the inferior nasal quadrant with Baljeet scissors. A sub-Tenon block c onsisting of a 1:1 mixture of 2% Xylocaine and 0.25% bupivacaine was placed through the conjunctival incision with a blunt cannula. A Honan balloon was placed over the eye and the patient was transferr ed to the operating room. In the operating room the patient was prepped and draped in the usual sterile fashion for ophthalmic surgery. A lid speculum was placed in the left eye. Two paracentesis sites were made superiorly and inferiorly in the limbal cornea. Viscoat was placed in the anterior chamber and a crescent blade wa s used to make a corneal groove and tunnel, and a keratome was used to enter the anterior chamber. P rovisc was placed in the anterior chamber and a 360 degree capsulotomy was performed with a cystitome . The lens was hydrodissected with BSS and rotated freely. The lens was removed with a stop and cho p technique. 38.16 phaco CDE was used to remove the lens. Residual cortex was removed with the irri gation and aspiration. Provisc was placed in the capsular bag. A SN60WF +21.5 lens was placed in th e capsular bag without complications. Irrigation and aspiration were used to remove residual viscoel astic. The paracentesis sites were hydrated with BSS. The wound and paracentesis sites were inspect ed and found to be watertight. Vigamox 0.07 cc was placed intracamerally at the end of the procedure . The eye was irrigated with balanced salt solution. The eye was patched with a soft cotton patch a nd Taylor metal shield. The patient was returned to day surgery in good condition. Comments: BSS plus was used and a scleral incision was created with Baljeet scissors and the incisi on was then initiated in the sclera rather than the cornea. Extra Viscoat was used. 1:5000 epinephr ine was used prior to Viscoat. Discharge Instructions: Ms. Whitlock is discharged to home in good condition and is to follow up with Dr. Mccarty in the morning. ROSA/KAYLEY Voice ID: [id number] Report ID: [id number]
== END 2018-01-30 16:42 | disposition home or self-care (01) ==
LOC: OR 12:39
PROVIDERS: ATTEND Ophthalmology Retina Specialist
PROC: 08RK3JZ Replacement of Left Lens with Synthetic Substitute, Percutaneous Approach (ICD-10-PCS; principal; 2018-01-30 13:00)
DX: H25.12 Age-related nuclear cataract, left eye (principal); H18.51 Endothelial corneal dystrophy; H04.123 Dry eye syndrome of bilateral lacrimal glands; H35.3110 Nonexudative age-related macular degeneration, right eye, stage unspecified; I25.10 Atherosclerotic heart disease of native coronary artery without angina pectoris; J44.9 Chronic obstructive pulmonary disease, unspecified; Z88.0 Allergy status to penicillin; Z88.8 Allergy status to other drugs, medicaments and biological substances; Z88.6 Allergy status to analgesic agent; Z91.040 Latex allergy status; Z91.048 Other nonmedicinal substance allergy status; Z95.0 Presence of cardiac pacemaker; Z95.1 Presence of aortocoronary bypass graft; Z87.891 Personal history of nicotine dependence; Z83.518 Family history of other specified eye disorder; Z83.3 Family history of diabetes mellitus; Z82.49 Family history of ischemic heart disease and other diseases of the circulatory system
CPT/HCPCS: 66984; 82962; J0171; J2001; J2405; J2704; J3490; V2630

== ENCOUNTER 2018-06-26 10:04 | Observation (INO) | payer OTHER, MEDICARE ==
--- OUTSIDE RECORDS SUMMARY | 2018-06-26 10:13 | XMS REPORT ---
:1930 [facility] Address [address] [id number] Care Team Providers Name Role Phone Unavailable Unavailable Unavailable Payers Payer Name Policy Type Policy Number Effective Date Expiration Date Problems This patient has no known problems. Allergies, Adverse Reactions, Alerts Allergy Name Allergy Status Severity Reaction(s) Onset Inactive Treating Comments Type Date Date Clinician iodine DA Active MO 08 00:00: 00 ciprofloxacin DA Active U 3- 00:00: 00 Qjetymt-Ogo-Ued DA Active U Reductase 3- Inhibitor 00:00: 00 Penicillins DA Active MO 2012-02 00:00: 00 codeine DA Active MO 2012-02 00:00: 00 adhesive DA Active U 2012-02 00:00: 00 Medications This patient has no known medications. Results Test Description Test Time Test Comments Text Results Atomic Results Result Comments GLUCOSE BEDSIDE TESTING 2018-04-24 11:31:00 Test Item Value Reference Range Comments GLUCOSE BEDSIDE TESTING (test code=GLUBED) 165 MG/DL 60-99 GLUCOSE BEDSIDE [id number] 08:35:00 Test Item Value Reference Range Comments GLUCOSE BEDSIDE TESTING (test code=GLUBED) 106 MG/DL 60-99 GLUCOSE BEDSIDE [id number] 21:27:00 Test Item Value Reference Range Comments GLUCOSE BEDSIDE TESTING (test code=GLUBED) 120 MG/DL 60-99 GLUCOSE BEDSIDE [id number] 16:37:00 Test Item Value Reference Range Comments GLUCOSE BEDSIDE TESTING (test code=GLUBED) 203 MG/DL 60-99 GLUCOSE BEDSIDE [id number] 12:26:00 Test Item Value Reference Range Comments GLUCOSE BEDSIDE TESTING (test code=GLUBED) 96 MG/DL 60-99 GLUCOSE BEDSIDE [id number] 07:56:00 Test Item Value Reference Range Comments GLUCOSE BEDSIDE TESTING (test code=GLUBED) 153 MG/DL 60-99 GLUCOSE BEDSIDE [id number] 20:19:00 Test Item Value Reference Range Comments GLUCOSE BEDSIDE TESTING (test code=GLUBED) 229 MG/DL 60-99 GLUCOSE BEDSIDE [id number] 16:49:00 Test Item Value Reference Range Comments GLUCOSE BEDSIDE TESTING (test code=GLUBED) 191 MG/DL 60-99 GLUCOSE BEDSIDE [id number] 12:48:00 Test Item Value Reference Range Comments GLUCOSE BEDSIDE TESTING (test code=GLUBED) 194 MG/DL 60-99 GLUCOSE BEDSIDE [id number] 07:39:00 Test Item Value Reference Range Comments GLUCOSE BEDSIDE TESTING (test code=GLUBED) 200 MG/DL 60-99 GLUCOSE BEDSIDE [id number] 05:51:00 Test Item Value Reference Range Comments GLUCOSE BEDSIDE TESTING (test code=GLUBED) 225 MG/DL 60-99 GLUCOSE BEDSIDE [id number] 23:44:00 Test Item Value Reference Range Comments GLUCOSE BEDSIDE TESTING (test 441 MG/DL 60-99 Call Lab Stat GLu~ code=GLUBED) [id number] 21:43:00 Test Item Value Reference Range Comments GLUCOSE (test code=GLU) 392 MG/DL 74-106 CALLED TO MAINE Castrejon& READGIOVANNY ON 04/21/18 AT 2143 BY Annie Blackmon GLUCOSE BEDSIDE [id number] 17:57:00 Test Item Value Reference Range Comments GLUCOSE BEDSIDE TESTING (test code=GLUBED) 257 MG/DL 60-99 - XR CHEST [id number] 17:15:00 Patient Name: SUSANA YAO Unit No: [id number] EXAMS: CPT CODE: [id number] XR CHEST 1V 16522 Location: T18 CHEST X-RAY: Portable AP frontal projection, 10/02 CLINICAL HISTORY: S/P ICD COMPARISON EXAMS: Chest x-ray exam 04/14/18 FINDINGS: A a left subclavian multi lead pacemaker is seen without a pneumothorax. The leads of the pacemaker appear intact and adequately situated. No evolving process is seen Heart, lungs, and mediastinal structures are within normal limits. Previously seen external pacer is no longer identified. IMPRESSION : Uneventful placement of pacemaker without pneumothorax. No acute findings. at 1715 Reported and signed by: Ana M Longoria MD CC: Khalif Villatoro; Ace Kent; Edvin Bearden MD Technologist: Sofi Haider (RT) (AART) Transcrpt Date/Tm/Trnsp: 04/21/2018 (2260) [email or web address] Orig Print D/T: S: 04/21/2018 (2825) [facility] NAME: SUSANA YAO [address] PHYS: [place] [address] : 1930 AGE: 88 SEX: F LOC: [id number] A PHONE #: [phone] EXAM DATE: 04/21/2018 STATUS: ADM IN FAX #: [phone] RADIOLOGY NO: PAGE 1 Signed ReportGLUCOSE BEDSIDE [id number] 16:57:00 Test Item Value Reference Range Comments GLUCOSE BEDSIDE TESTING (test code=GLUBED) 147 MG/DL 60-99 PROTHROMBIN [id number] 11:24:00 Test Item Value Reference Range Comments PROTHROMBIN TIME PATIENT (test 10.5 SECONDS 9.6-11.6 code=PTP) INTERNATIONAL NORMAL RATIO 1.0 0.8-1.1 The INR is to be used only (test code=INR) for monitoring oral anticoagulanttherapy. INDICATION INR VALUE 1. Prophylaxis, deep venous thrombosis, including high risk surgery. 2.0 - 3.0 2. Prophylaxis, deep venous thrombosis, hip surgery, treatment for deep venous thrombosis or pulmonary prevention of systemic embolism in patients with valvular heart disease, atrial fibrillation, tissue heart valve, or acute myocardial infarction. 2.0 - 3.0 3. Mechanical prosthesis heart valves, recurrent systemic embolism. 3.0 - 4.5 Comments to Gold Frame Assembler: PLEASE DRAW ASAPPTT [id number] 11:24:00 Test Item Value Reference Range Comments PTT ACTIVATED (test code=APTT) 24.2 SECONDS 22.0-33.0 Comments to Gold Frame Assembler: PLEASE DRAW ASAPGLUCOSE BEDSIDE [id number] 08: 03:00 Test Item Value Reference Range Comments GLUCOSE BEDSIDE TESTING (test code=GLUBED) 129 MG/DL 60-99 GLUCOSE BEDSIDE [id number] 21:47:00 Test Item Value Reference Range Comments GLUCOSE BEDSIDE TESTING (test code=GLUBED) 199 MG/DL 60-99 GLUCOSE BEDSIDE [id number] 16:15:00 Test Item Value Reference Range Comments GLUCOSE BEDSIDE TESTING (test code=GLUBED) 91 MG/DL 60-99 GLUCOSE BEDSIDE [id number] 12:34:00 Test Item Value Reference Range Comments GLUCOSE BEDSIDE TESTING (test code=GLUBED) 109 MG/DL 60-99 BASIC METABOLIC [id number] 11:32:00 Test Item Value Reference Range Comments SODIUM (test code=NA) 139 MMOL/L 137-145 POTASSIUM (test code=K) 4.2 MMOL/L 3.5-5.1 CHLORIDE (test code=CL) 102 MMOL/L 98-107 CARBON DIOXIDE (test code=CO2) 34 MMOL/L 22-30 ANION GAP (test code=GAP) 7 MMOL/L 14-24 GLUCOSE (test code=GLU) 129 MG/DL 74-106 BLOOD UREA NITROGEN (test 24 MG/DL 7-17 code=BUN) GLOMERULAR FILTRATION RATE 59 Reporting units: ml/min/1.73 (test code=GFR) m2 (Modified MDRD Formula)Reference Range: > or=60 ml/min/1.73 m2 CREATININE (test code=CREAT) 0.90 MG/DL 0.52-1.04 CALCIUM (test code=CA) 8.8 MG/DL 8.4-10.2 LIPID PROFILE (CORONARY RISK)2018-04-20 11:32:00 Test Item Value Reference Range Comments TRIGLYCERIDES (test code=TRIG) 389 MG/DL TRIGLYCERIDES REFERENCE RANGE:Normal: <150 mg/dLBorderline High: 150-199 mg/dLHigh: 200-499 mg/dLVery High: >=500 mg/dL CHOLESTEROL (test code=CHOL) 180 MG/DL <200 HDL CHOLESTEROL (test 39 MG/DL 40-59 code=HDL) LIPOPROTEIN LDL (test 106 MG/DL 0-99 code=LDL) OPTIMAL.........<100 mg/dLNEAR OPTIMAL/ABOVE OPTIMAL.........100-129 mg/dL BORDERLINE HIGH.........130-159 mg/dL HIGH.........160-189 mg/dL VERY HIGH.........>/=190 mg/dL [id number] 11:32:00 Test Item Value Reference Range Comments TROPONIN-I (test 0.572 NG/ML 0.012-0.033 CALLED TO RAY& READBACK ON code=TROPI) 04/20/18 AT 1132 BY Alberto Betancur BASIC METABOLIC [id number] 11:14:00 Test Item Value Reference Range Comments SODIUM (test code=NA) 139 MMOL/L 137-145 POTASSIUM (test code=K) 4.2 MMOL/L 3.5-5.1 CHLORIDE (test code=CL) 102 MMOL/L 98-107 CARBON DIOXIDE (test code=CO2) 34 MMOL/L 22-30 ANION GAP (test code=GAP) 7 MMOL/L 14-24 GLUCOSE (test code=GLU) 129 MG/DL 74-106 BLOOD UREA NITROGEN (test 24 MG/DL 7-17 code=BUN) GLOMERULAR FILTRATION RATE 59 Reporting units: ml/min/1.73 (test code=GFR) m2 (Modified MDRD Formula)Reference Range: > or=60 ml/min/1.73 m2 CREATININE (test code=CREAT) 0.90 MG/DL 0.52-1.04 CALCIUM (test code=CA) 8.8 MG/DL 8.4-10.2 LIPID PROFILE (CORONARY RISK)2018-04-20 11:14:00 Test Item Value Reference Range Comments TRIGLYCERIDES (test code=TRIG) 389 MG/DL TRIGLYCERIDES REFERENCE RANGE:Normal: <150 mg/dLBorderline High: 150-199 mg/dLHigh: 200-499 mg/dLVery High: >=500 mg/dL CHOLESTEROL (test code=CHOL) 180 MG/DL <200 HDL CHOLESTEROL (test 39 MG/DL 40-59 code=HDL) LIPOPROTEIN LDL (test MG/DL 0-99 code=LDL) [id number] 11:14:00 Test Item Value Reference Range Comments TROPONIN-I (test code=TROPI) NG/ML 0.0-0.045 GLYCOSYLATED HEMOGLOBIN [id number] 11:11:00 Test Item Value Reference Range Comments GLYCOSYLATED HEMOGLOBIN 6.9 % 4.8-5.9 Any condition that shortens (HA1C) (test code=GLYHGB) erythocyte survival or decreasesmean erythrocyte age (e.g., recovery from acute blood loss,hemolytic anemia) will falsely lower HGBA1c resultsregardless of the method used. HGBA1c results from patientswith HbSS, HbCC, and HbSc must be interpreted with cautiongiven the pathological processes, including anemia,increased red cell turnover, transfusion requirements, thatadversely impact HGBA1c as a marker of long-term glycemiccontrol. Alternative forms of testing such as fructosamineshould be considered for these patients. MEAN BLOOD GLUCOSE (test 151 MG/DL 70-110 code=MBG) CBC W/AUTO [id number] 10:48:00 Test Item Value Reference Range Comments WHITE BLOOD CELL (test code=WBC) 8.8 K/MM3 3.8-9.8 RED BLOOD CELL (test code=RBC) 3.58 M/MM3 3.58-4.97 HEMOGLOBIN (test code=HGB) 10.7 G/DL 11.2-14.9 HEMATOCRIT (test code=HCT) 34.1 % 33.2-43.5 MEAN CELL VOLUME (test code=MCV) 95 fL 80.7-99.1 MEAN CELL HGB (test code=MCH) 29.9 pg 27.0-34.1 MEAN CELL HGB CONCETRATION (test code=MCHC) 31.4 % 32.2-35.7 RED CELL DISTRIBUTION WIDTH (test code=RDW) 14.3 % 12.1-15.2 PLATELET COUNT (test code=PLT) 133 K/MM3 129-368 MEAN PLATELET VOLUME (test code=MPV) 9.5 fl 7.4-10.4 NEUTROPHIL % (test code=NT%) 64.3 % 43-75 IMMATURE GRANULOCYTE % (test code=IG%) 0.8 % 0.0-2.0 LYMPHOCYTE % (test code=LY%) 24.0 % 14-44 MONOCYTE % (test code=MO%) 8.5 % 4-13 EOSINOPHIL % (test code=EO%) 2.3 % 0-6 BASOPHIL % (test code=BA%) 0.1 % 0-2 NUCLEATED RBC % (test code=NRBC%) 0.0 % 0-1.0 NEUTROPHIL # (test code=NT#) 5.64 K/mm3 2.0-7.6 IMMATURE GRANULOCYTE # (test code=IG#) 0.07 x10 3/uL 0-0.03 LYMPHOCYTE # (test code=LY#) 2.11 K/mm3 1.0-3.8 MONOCYTE # (test code=MO#) 0.75 K/mm3 0.1-0.8 EOSINOPHIL # (test code=EO#) 0.20 K/mm3 0.0-0.2 BASOPHIL # (test code=BA#) 0.01 K/mm3 0.0-0.2 NUCLEATED RBC # (test code=NRBC#) 0.00 K/mm3 0.0-0.1 GLUCOSE BEDSIDE [id number] 08:27:00 Test Item Value Reference Range Comments GLUCOSE BEDSIDE TESTING (test code=GLUBED) 112 MG/DL 60-99 GLUCOSE BEDSIDE [id number] 06:18:00 Test Item Value Reference Range Comments GLUCOSE BEDSIDE TESTING (test code=GLUBED) 92 MG/DL 60-99 [id number] 02:10:00 Test Item Value Reference Range Comments TROPONIN-I (test 0.679 NG/ML 0.012-0.033 CALLED TO [facility] imu & code=TROPI) READBACK ON 04/20/18 AT 0209 BY Sejal Monson GLUCOSE BEDSIDE [id number] 23:12:00 Test Item Value Reference Range Comments GLUCOSE BEDSIDE TESTING (test code=GLUBED) 196 MG/DL 60-99 BASIC METABOLIC [id number] 21:51:00 Test Item Value Reference Range Comments SODIUM (test code=NA) 138 MMOL/L 137-145 POTASSIUM (test code=K) 4.6 MMOL/L 3.5-5.1 CHLORIDE (test code=CL) 101 MMOL/L 98-107 CARBON DIOXIDE (test code=CO2) 29 MMOL/L 22-30 GLUCOSE (test code=GLU) 242 MG/DL 74-106 BLOOD UREA NITROGEN (test 30 MG/DL 7-17 code=BUN) GLOMERULAR FILTRATION RATE 47 Reporting units: ml/min/1.73 (test code=GFR) m2 (Modified MDRD Formula)Reference Range: > or=60 ml/min/1.73 m2 CREATININE (test code=CREAT) 1.10 MG/DL 0.52-1.04 CALCIUM (test code=CA) 9.5 MG/DL 8.4-10.2 CBC W/AUTO [id number] 21:32:00 Test Item Value Reference Range Comments WHITE BLOOD CELL (test code=WBC) 11.3 K/MM3 3.8-9.8 RED BLOOD CELL (test code=RBC) 3.71 M/MM3 3.58-4.97 HEMOGLOBIN (test code=HGB) 11.1 G/DL 11.2-14.9 HEMATOCRIT (test code=HCT) 35.4 % 33.2-43.5 MEAN CELL VOLUME (test code=MCV) 95 fL 80.7-99.1 MEAN CELL HGB (test code=MCH) 29.9 pg 27.0-34.1 MEAN CELL HGB CONCETRATION (test code=MCHC) 31.4 % 32.2-35.7 RED CELL DISTRIBUTION WIDTH (test code=RDW) 14.2 % 12.1-15.2 PLATELET COUNT (test code=PLT) 131 K/MM3 129-368 MEAN PLATELET VOLUME (test code=MPV) 9.1 fl 7.4-10.4 NEUTROPHIL % (test code=NT%) 73.5 % 43-75 IMMATURE GRANULOCYTE % (test code=IG%) 0.9 % 0.0-2.0 LYMPHOCYTE % (test code=LY%) 17.4 % 14-44 MONOCYTE % (test code=MO%) 7.0 % 4-13 EOSINOPHIL % (test code=EO%) 1.1 % 0-6 BASOPHIL % (test code=BA%) 0.1 % 0-2 NUCLEATED RBC % (test code=NRBC%) 0.0 % 0-1.0 NEUTROPHIL # (test code=NT#) 8.31 K/mm3 2.0-7.6 IMMATURE GRANULOCYTE # (test code=IG#) 0.10 x10 3/uL 0-0.03 LYMPHOCYTE # (test code=LY#) 1.97 K/mm3 1.0-3.8 MONOCYTE # (test code=MO#) 0.79 K/mm3 0.1-0.8 EOSINOPHIL # (test code=EO#) 0.12 K/mm3 0.0-0.2 BASOPHIL # (test code=BA#) 0.01 K/mm3 0.0-0.2 NUCLEATED RBC # (test code=NRBC#) 0.00 K/mm3 0.0-0.1 LIPOPROTEIN LDL [id number] 19:21:00 Test Item Value Reference Range Comments LIPOPROTEIN LDL DIRECT (test 126 mg/dL 100-129 code=LDLDIR) ===Reference Interval: mg/dL mmol/L ---------Optimal <100 <2.6Near/above optimal 100-129 2.6-3.3Borderline High 130-159 3.4-4.1High 160-189 4.1-4.9Very High >=190 >=4.9=========This LDL result is a direct measurement.========= [id number] 19:21:00 Test Item Value Reference Range Comments TROPONIN-I (test 0.720 NG/ML 0.012-0.033 CALLED TO KHRIS Oakes & code=TROPI) READBACK ON 04/19/18 AT 1901 Karen Gilbert LIPOPROTEIN LDL [id number] 19:04:00 Test Item Value Reference Range Comments LIPOPROTEIN LDL DIRECT (test code=LDLDIR) mg/dL 100-129 [id number] 19:04:00 Test Item Value Reference Range Comments TROPONIN-I (test 0.720 NG/ML 0.012-0.033 CALLED TO KHRIS Oakes & code=TROPI) READBACK ON 04/19/18 AT 1901 Karen Gilbert GLUCOSE BEDSIDE [id number] 12:58:00 Test Item Value Reference Range Comments GLUCOSE BEDSIDE TESTING (test code=GLUBED) 289 MG/DL 60-99 GLUCOSE BEDSIDE [id number] 08:36:00 Test Item Value Reference Range Comments GLUCOSE BEDSIDE TESTING (test code=GLUBED) 128 MG/DL 60-99 GLUCOSE BEDSIDE [id number] 20:27:00 Test Item Value Reference Range Comments GLUCOSE BEDSIDE TESTING (test code=GLUBED) 214 MG/DL 60-99 GLUCOSE BEDSIDE [id number] 16:59:00 Test Item Value Reference Range Comments GLUCOSE BEDSIDE TESTING (test code=GLUBED) 313 MG/DL 60-99 GLUCOSE BEDSIDE [id number] 12:15:00 Test Item Value Reference Range Comments GLUCOSE BEDSIDE TESTING (test code=GLUBED) 141 MG/DL 60-99 GLUCOSE BEDSIDE [id number] 10:30:00 Test Item Value Reference Range Comments GLUCOSE BEDSIDE TESTING (test code=GLUBED) 139 MG/DL 60-99 GLUCOSE BEDSIDE [id number] 07:52:00 Test Item Value Reference Range Comments GLUCOSE BEDSIDE TESTING (test code=GLUBED) 81 MG/DL 60-99 GLUCOSE BEDSIDE [id number] 18:39:00 Test Item Value Reference Range Comments GLUCOSE BEDSIDE TESTING (test code=GLUBED) 336 MG/DL 60-99 GLUCOSE BEDSIDE [id number] 12:50:00 Test Item Value Reference Range Comments GLUCOSE BEDSIDE TESTING (test code=GLUBED) 127 MG/DL 60-99 GLUCOSE BEDSIDE [id number] 12:49:00 Test Item Value Reference Range Comments GLUCOSE BEDSIDE TESTING (test code=GLUBED) 204 MG/DL 60-99 GLUCOSE BEDSIDE [id number] 20:45:00 Test Item Value Reference Range Comments GLUCOSE BEDSIDE TESTING (test code=GLUBED) 243 MG/DL 60-99 GLUCOSE BEDSIDE [id number] 16:05:00 Test Item Value Reference Range Comments GLUCOSE BEDSIDE TESTING (test code=GLUBED) 192 MG/DL 60-99 GLUCOSE BEDSIDE [id number] 11:02:00 Test Item Value Reference Range Comments GLUCOSE BEDSIDE TESTING (test code=GLUBED) 159 MG/DL 60-99 GLUCOSE BEDSIDE [id number] 07:43:00 Test Item Value Reference Range Comments GLUCOSE BEDSIDE TESTING (test code=GLUBED) 138 MG/DL 60-99 GLUCOSE BEDSIDE [id number] 04:20:00 Test Item Value Reference Range Comments GLUCOSE BEDSIDE TESTING (test code=GLUBED) 227 MG/DL 60-99 GLUCOSE BEDSIDE [id number] 04:20:00 Test Item Value Reference Range Comments GLUCOSE BEDSIDE TESTING (test code=GLUBED) 275 MG/DL 60-99 GLUCOSE BEDSIDE [id number] 20:27:00 Test Item Value Reference Range Comments GLUCOSE BEDSIDE TESTING (test code=GLUBED) 258 MG/DL 60-99 GLUCOSE BEDSIDE [id number] 17:10:00 Test Item Value Reference Range Comments GLUCOSE BEDSIDE TESTING (test code=GLUBED) 283 MG/DL 60-99 GLUCOSE BEDSIDE [id number] 05:52:00 Test Item Value Reference Range Comments GLUCOSE BEDSIDE TESTING (test code=GLUBED) 276 MG/DL 60-99 COMPREHENSIVE METABOLIC [id number] 21:59:00 Test Item Value Reference Range Comments SODIUM (test code=NA) 138 MMOL/L 137-145 POTASSIUM (test code=K) 4.4 MMOL/L 3.5-5.1 CHLORIDE (test code=CL) 106 MMOL/L 98-107 CARBON DIOXIDE (test code=CO2) 28 MMOL/L 22-30 ANION GAP (test code=GAP) 8 MMOL/L 14-24 GLUCOSE (test code=GLU) 272 MG/DL 74-106 BLOOD UREA NITROGEN (test 32 MG/DL 7-17 code=BUN) GLOMERULAR FILTRATION RATE 53 Reporting units: ml/min/1.73 (test code=GFR) m2 (Modified MDRD Formula)Reference Range: > or=60 ml/min/1.73 m2 CREATININE (test code=CREAT) 1.00 MG/DL 0.52-1.04 TOTAL PROTEIN (test code=PROT) 5.6 G/DL 6.3-8.2 ALBUMIN (test code=ALB) 3.1 G/DL 3.5-5.0 CALCIUM (test code=CA) 8.8 MG/DL 8.4-10.2 BILIRUBIN TOTAL (test 0.2 MG/DL 0.2-1.3 code=BILT) SGOT/AST (test code=AST) 46 UNITS/L 14-36 SGPT/ALT (test code=ALT) 77 UNITS/L 9-52 ALKALINE PHOSPHATASE (test 58 UNITS/L 38-126 code=ALKP) [id number] 21:59:00 Test Item Value Reference Range Comments PHOSPHOROUS (test code=PHOS) 2.4 MG/DL 2.5-4.5 [id number] 21:59:00 Test Item Value Reference Range Comments MAGNESIUM (test code=MAG) 2.1 MG/DL 1.6-2.3 CBC W/AUTO [id number] 21:46:00 Test Item Value Reference Range Comments WHITE BLOOD CELL (test code=WBC) 12.0 K/MM3 3.8-9.8 RED BLOOD CELL (test code=RBC) 3.21 M/MM3 3.58-4.97 HEMOGLOBIN (test code=HGB) 9.7 G/DL 11.2-14.9 HEMATOCRIT (test code=HCT) 31.0 % 33.2-43.5 MEAN CELL VOLUME (test code=MCV) 97 fL 80.7-99.1 MEAN CELL HGB (test code=MCH) 30.2 pg 27.0-34.1 MEAN CELL HGB CONCETRATION (test code=MCHC) 31.3 % 32.2-35.7 RED CELL DISTRIBUTION WIDTH (test code=RDW) 14.3 % 12.1-15.2 PLATELET COUNT (test code=PLT) 127 K/MM3 129-368 MEAN PLATELET VOLUME (test code=MPV) 9.6 fl 7.4-10.4 NEUTROPHIL % (test code=NT%) 78.0 % 43-75 IMMATURE GRANULOCYTE % (test code=IG%) 0.4 % 0.0-2.0 LYMPHOCYTE % (test code=LY%) 13.9 % 14-44 MONOCYTE % (test code=MO%) 7.4 % 4-13 EOSINOPHIL % (test code=EO%) 0.2 % 0-6 BASOPHIL % (test code=BA%) 0.1 % 0-2 NUCLEATED RBC % (test code=NRBC%) 0.0 % 0-1.0 NEUTROPHIL # (test code=NT#) 9.32 K/mm3 2.0-7.6 IMMATURE GRANULOCYTE # (test code=IG#) 0.05 x10 3/uL 0-0.03 LYMPHOCYTE # (test code=LY#) 1.66 K/mm3 1.0-3.8 MONOCYTE # (test code=MO#) 0.89 K/mm3 0.1-0.8 EOSINOPHIL # (test code=EO#) 0.02 K/mm3 0.0-0.2 BASOPHIL # (test code=BA#) 0.01 K/mm3 0.0-0.2 NUCLEATED RBC # (test code=NRBC#) 0.00 K/mm3 0.0-0.1 GLUCOSE BEDSIDE [id number] 21:36:00 Test Item Value Reference Range Comments GLUCOSE BEDSIDE TESTING (test code=GLUBED) 268 MG/DL 60-99 GLUCOSE BEDSIDE [id number] 21:36:00 Test Item Value Reference Range Comments GLUCOSE BEDSIDE TESTING (test code=GLUBED) 223 MG/DL 60-99 GLUCOSE BEDSIDE [id number] 21:36:00 Test Item Value Reference Range Comments GLUCOSE BEDSIDE TESTING (test code=GLUBED) 147 MG/DL 60-99 GLUCOSE BEDSIDE [id number] 21:36:00 Test Item Value Reference Range Comments GLUCOSE BEDSIDE TESTING (test code=GLUBED) 194 MG/DL 60-99 - XR CHEST [id number] 20:15:00 Patient Name: SUSANA YAO Unit No: [id number] EXAMS: CPT CODE: [id number] XR CHEST 1V 86827 AP VIEW OF THE CHEST LOCATION: B2 CLINICAL HISTORY: COPD. CHF. COMPARISON: No previous exam available. FINDINGS: The cardiomediastinal shadow is within normal limits. Atherosclerotic calcifications are seen in the aorta. Poststernotomy changes are noted. A left AICD is in place, with intact transvenous wires. A right PICC is in place, with the tip projecting over the superior vena cava. Trace left pleural fluid and atelectasis are noted. Degenerative bony changes are noted. No acute bony abnormality is found. IMPRESSION: Trace left pleural fluid and atelectasis. at 2015 Reported and signed by: Tanna Laboy MD CC: Khalif Villatoro; Ace Kent Technologist: Annalisa Avelar (RT) Transcrpt Date/Tm/Trnsp: 04/14/2018 (2014) January Orig Print D/T: S: 04/14/2018 (2017) [facility] Amarjit NAME: BUD [id number] PHYS: [place] [address] : 1930 AGE: 88 SEX: F LOC: [id number].[id number] A PHONE #: [phone] EXAM DATE: 04/14/2018 STATUS: ADM IN FAX #: [phone] RADIOLOGY NO: PAGE 1 Signed ReportGLUCOSE BEDSIDE [id number] 06:58:00 Test Item Value Reference Range Comments GLUCOSE BEDSIDE TESTING (test code=GLUBED) 230 MG/DL 60-99
--- NOTE | 2018-06-26 11:12 | RAD REPORT ---
EXAM DESCRIPTION: RAD - Chest Single View - 06/26/2018 11:03 am CLINICAL HISTORY: SOB Chest pain. COMPARISON: Chest Single View dated 04/12/2018; Chest Single View dated 04/12/2018; Chest Single View dated 09/29/2017; Chest Single View dated 09/14/2017 FINDINGS: Portable technique limits examination quality. The lungs are emphysematous but grossly clear. The heart is normal in size. Dual lead pacer/ defibril lator device is present. Sternotomy wires are present. IMPRESSION: No acute intrathoracic process suspected. COPD.
[2018-06-26 11:36] LABS: Absolute Lymphocytes (CBC) 1.4 K/uL (0.7-4.9); Absolute Monocytes 0.7 K/uL (0.1-1.3); Absolute Neutrophil 5.7 K/uL (1.8-8.0); Basophils % 0.7 % (0-1.3); Eosinophils % 1.4 % (0-4.4); Hematocrit 35.5 % (36.0-45.0); Lymphocytes % 17.8 % (15.3-44.8); MPV 7.8 fL (7.6-11.3); Monocytes % 8.6 % (3.3-12.3); RBC Red Blood Cell Count 3.86 M/uL (3.86-4.86)
[2018-06-26 11:37] LABS: Protime INR 1.03
[2018-06-26 11:52] LABS: ALT/SGPT 13 U/L (12-78); AST/SGOT 13 U/L (15-37); Albumin 3.3 g/dL (3.4-5.0); Alkaline Phosphatase 49 U/L (45-117); BUN Blood Urea Nitrogen 19 mg/dL (7-18); Bicarbonate 31 mmol/L (21-32); Bilirubin Direct < 0.1 mg/dL (0-0.2); Bilirubin Total 0.4 mg/dL (0.2-1.0); Glucose Level 131 mg/dL (74-106); Magnesium 2.1 mg/dL (1.8-2.4); NT PRO-BNP 1964 pg/mL (<450); Potassium 3.8 mmol/L (3.5-5.1); Protein, Total 6.6 g/dL (6.4-8.2); Sodium Level 143 mmol/L (136-145); Troponin (Emerg Dept Use Only) < 0.02 ng/mL (0.0-0.045)
[2018-06-26] MEDS ORDERED: LEVALBUTEROL 1.25 MG/3 ML NEB ONE (11:58)
[2018-06-26 12:58] LABS: Urine Bacteria <20 /HPF (<20); Urine Culture Reflex Order NOT NEEDED; Urine RBC <5 /HPF (NONE SEEN)
[2018-06-26 13:10] LABS: Urine Blood NEGATIVE (NEG); Urine Glucose NEGATIVE (NEG); Urine Protein NEGATIVE (NEG); Urine Specific Gravity 1.015 (1.005-1.030); Urine pH 5.5 (5.0-7.0)
--- NOTE | 2018-06-26 14:19 | ER ---
Nurse's Notes [facility] Name: Jeannie Whitlock Age: 88 yrs Sex: Female : 1930 Arrival Date: 06/26/2018 Time: 10:12 Bed 17 Private MD: Diagnosis: Acute Shortness of Breath Presentation: 06/26 10:12 Presenting complaint: Patient states: She was eating breakfast this morning and she had aj1 a coughing spell and felt like she was choking on mucus, afterwards she felt short of breath for a few minutes. Patient reports that's that she coughed up "a lot of mucus in the ambulance" and now her shortness of breath has resolved. Patient reports that she has been having nasal drainage and watery eyes. Her PCP is out of town so she was concerned she would not be able to get an appointment today. Patient wears home O2 \\T\\4L nc, patient is currently 99% on 4L. Transition of care: patient was not received from another setting of care. Onset of symptoms was June 26, 2018. Risk Assessment: Do you want to hurt yourself or someone else? Patient reports no desire to harm self or others. Initial Sepsis Screen: Does the patient meet any 2 criteria? No. Patient's initial sepsis screen is negative. Does the patient have a suspected source of infection? Yes: Productive cough/pneumonia. Care prior to arrival: None. 10:12 Method Of Arrival: EMS: [facility] aj1 10:12 Acuity: IRENE 3 aj1 Triage Assessment: 10:20 General: Appears in no apparent distress. uncomfortable, Behavior is calm, cooperative, aj1 appropriate for age. Pain: Denies pain. EENT: Reports nasal congestion nasal discharge watery eyes. Respiratory: Reports shortness of breath after a coughing spell that has now resolved Airway is patent Respiratory effort is even, unlabored, Respiratory pattern is regular, symmetrical, Onset: The symptoms/episode began/occurred today, the patient reports symptoms have resolved. Historical: - Allergies: 10:20 Codeine; aj1 10:20 CT Dye; aj1 10:20 Demerol; aj1 10:20 Ibuprofen; aj1 10:20 Iodine; aj1 10:20 Meperidine; aj1 10:20 metformin; aj1 10:20 Morphine; aj1 10:20 PENICILLINS; aj1 10:20 Rgbvcyh-Cso-Hqp Reductase Inhibitor; aj1 10:20 Tape; aj1 - Home Meds: 10:20 Humalog Mix 75-25 100 unit/mL (75-25) Sub-Q susp 36 units in the morning, 14 units in aj1 the evening [Active]; furosemide 20 mg Oral tab 1 tab once daily [Active]; amiodarone 100 mg Oral tab 1 tab once daily [Active]; metoprolol tartrate 25 mg Oral tab 1 tab 2 times per day [Active]; lisinopril 5 mg oral tab 1 tab once daily [Active]; Probiotic Oral daily [Active]; Ocuvite 481-45-4-150 tw-dftx-cb-mg Oral cap daily [Active]; Vitamin D Oral twice a day [Active]; CoQ-10 100 mg Oral cap nightly [Active]; krill oil 1000 mg daily Oral [Active]; Brovana 15 mcg/2 mL inhalation nebu daily [Active]; Spiriva with HandiHaler 18 mcg inhalation CpDv 1 cap once daily [Active]; - PMHx: 10:20 Cancer, Lung; CHF; Diabetes - IDDM; High Cholesterol; Hypertension; aj1 - Immunization history:: Flu vaccine is up to date. - Social history:: Smoking status: Patient/guardian denies using tobacco. - Ebola Screening: : Patient denies travel to an Ebola-affected area in the 21 days before illness onset. - Family history:: not pertinent. - Hospitalizations: : No recent hospitalization is reported. Screenin:22 Abuse screen: Denies threats or abuse. Denies injuries from another. Nutritional aj1 screening: No deficits noted. Tuberculosis screening: No symptoms or risk factors identified. 20:00 Fall Risk No fall in past 12 months (0 pts). Secondary diagnosis (15 points) shortness aj1 of breath with activity. IV access (20 points). Ambulatory Aid- None/Bed Rest/Nurse Assist (0 pts). Gait- Normal/Bed Rest/Wheelchair (0 pts) Mental Status- Oriented to own ability (0 pts). Total Ugarte Fall Scale indicates Low Risk Score (25-44 pts). Fall prevention measures have been instituted. As available Patient and Family Educated on Fall Prevention Program and strategies. Assessment: 10:22 General: Appears in no apparent distress. uncomfortable, Behavior is calm, cooperative, aj1 appropriate for age. Pain: Denies pain. Neuro: Level of Consciousness is awake, alert, obeys commands. Cardiovascular: Denies chest pain, Patient's skin is warm and dry. Rhythm is regular. Respiratory: Reports shortness of breath during a coughing spell that has now resolved cough that is productive, Airway is patent Respiratory effort is even, unlabored, Respiratory pattern is regular, symmetrical, Breath sounds are diminished in left posterior lower lobe and right posterior lower lobe. GI: No signs and/or symptoms were reported involving the gastrointestinal system. : No signs and/or symptoms were reported regarding the genitourinary system. EENT: Reports nasal congestion nasal discharge watery eyes. Derm: No signs and/or symptoms reported regarding the dermatologic system. Skin is pink, warm \\T\\ dry. normal. Musculoskeletal: No signs and/or symptoms reported regarding the musculoskeletal system. Circulation, motion, and sensation intact. 11:24 Reassessment: Patient appears in no apparent distress at this time. No changes from aj1 previously documented assessment. Patient and/or family updated on plan of care and expected duration. Pain level reassessed. Patient is alert, oriented x 3, equal unlabored respirations, skin warm/dry/pink. 12:30 Reassessment: Patient appears in no apparent distress at this time. No changes from aj1 previously documented assessment. Patient and/or family updated on plan of care and expected duration. Pain level reassessed. Patient is alert, oriented x 3, equal unlabored respirations, skin warm/dry/pink. 13:46 Reassessment: Patient appears in no apparent distress at this time. No changes from aj1 previously documented assessment. Patient and/or family updated on plan of care and expected duration. Pain level reassessed. Patient is alert, oriented x 3, equal unlabored respirations, skin warm/dry/pink. 14:45 Reassessment: Patient and/or family updated on plan of care and expected duration. Pain aj1 level reassessed. General: Appears in no apparent distress. comfortable, Behavior is calm, cooperative, appropriate for age. Pain: Denies pain. Neuro: Level of Consciousness is awake, alert, obeys commands. Cardiovascular: Patient's skin is warm and dry. Rhythm is regular. Respiratory: Airway is patent Respiratory effort is even, unlabored, Respiratory pattern is regular, symmetrical, Denies shortness of breath. Derm: Skin is pink, warm \\T\\ dry. normal. Musculoskeletal: Circulation, motion, and sensation intact. 15:45 Reassessment: Patient appears in no apparent distress at this time. No changes from aj1 previously documented assessment. Patient and/or family updated on plan of care and expected duration. Pain level reassessed. Patient is alert, oriented x 3, equal unlabored respirations, skin warm/dry/pink. 16:45 Reassessment: Patient's daughter is at bedside, states that she would like to speak aj1 with the doctor about why her mom is being admitted. Notified Dr. Gregory who came to speak with patient's daughter. 17:00 Reassessment: Patient given meal tray. aj1 17:43 Reassessment: Patient and/or family updated on plan of care and expected duration. Pain aj1 level reassessed. General: Appears in no apparent distress. comfortable, Behavior is calm, cooperative, appropriate for age. Pain: Denies pain. Neuro: Level of Consciousness is awake, alert, obeys commands. Cardiovascular: Patient's skin is warm and dry. Rhythm is paced. Respiratory: Airway is patent Respiratory effort is even, unlabored, Respiratory pattern is regular, symmetrical, Denies shortness of breath. Derm: Skin is pink, warm \\T\\ dry. normal. Musculoskeletal: Circulation, motion, and sensation intact. 18:32 Reassessment: Patient appears in no apparent distress at this time. No changes from aj1 previously documented assessment. Patient and/or family updated on plan of care and expected duration. Pain level reassessed. Patient is alert, oriented x 3, equal unlabored respirations, skin warm/dry/pink. Vital Signs: 10:20 BP 110 / 45; Pulse 75; Resp 15; Temp 97.7(O); Pulse Ox 99% on 4 lpm NC; Weight 68.04 kg aj1 (R); Height 5 ft. 4 in. (162.56 cm) (R); Pain 0/10; 11:25 BP 111 / 49; Pulse 74; Resp 16; Pulse Ox 100% on 4 lpm NC; aj1 12:46 BP 111 / 53; Pulse 76; Resp 18; Temp 97.8(TE); Pulse Ox 99% on 3 lpm NC; mh5 13:47 BP 120 / 55; Pulse 84; Resp 18; Pulse Ox 98% on 3 lpm NC; aj1 14:45 BP 133 / 53; Pulse 84; Resp 20; Temp 98.2; Pulse Ox 100% on 3 lpm NC; aj1 15:57 BP 129 / 72; Pulse 86; Resp 20; Temp 98.0(O); Pulse Ox 100% on 3 lpm NC; mh5 16:45 BP 138 / 59; Pulse 85; Resp 18; Pulse Ox 100% on 3 lpm NC; aj1 17:47 BP 144 / 86; Pulse 91; Resp 18; Pulse Ox 99% on 3 lpm NC; aj1 18:45 BP 137 / 62; Pulse 88; Resp 20; Temp 98.7(O); Pulse Ox 99% on 3 lpm NC; aj1 10:20 Body Mass Index 25.75 (68.04 kg, 162.56 cm) [facility] ED Course: 10:12 Patient arrived in ED. aj1 10:14 Triage completed. aj1 10:20 Arm band placed on. aj1 10:22 Patient has correct armband on for positive identification. Bed in low position. Call aj1 light in reach. Side rails up X 1. 10:22 No provider procedures requiring assistance completed. aj1 10:24 Yury Gregory MD is Attending Physician. wa 10:26 Iman Fajardo RN is Primary Nurse. aj1 11:03 XRAY CXR (1 view) In Process Unspecified. EDMA 11:03 X-ray completed. Portable x-ray completed in exam room. Patient tolerated procedure sw well. 11:08 EKG done, by medical administrative technician. reviewed by Yury Gregory MD. at1 11:20 Initial lab(s) drawn, by nh, sent to lab. Inserted saline lock: 22 gauge in right aj1 forearm, using aseptic technique. Blood collected. 12:30 Urine Microscopic Only Sent. 5 14:18 Darrell Robles MD is Hospitalizing Provider. wa 15:56 Repeat lab(s) drawn. by nh, sent to lab. 5 15:56 Troponin I Sent. 5 15:56 Troponin I Sent. 5 19:10 Report given to HIREN Novoa. aj1 20:00 Patient admitted, IV remains in place. aj1 20:02 Report given to HIREN Kay on 2nd floor. aj1 Administered Medications: 11:47 Drug: Xopenex 1.25 mg Route: Inhalation; aj1 13:00 Follow up: Response: No adverse reaction aj1 Outcome: 14:18 Decision to Hospitalize by Provider. wa 20:00 Admitted to Tele accompanied by nurse, via wheelchair, with oxygen, with chart. aj1 20:00 Condition: stable 20:00 Discharge instructions given to patient, Instructed on the need for admit, Demonstrated understanding of instructions. 20:18 Patient left the ED. bb Signatures: Dispatcher [employer] EDMS Iman Fajardo RN RN aj1 Sarah Carroll RN RN bb Kristen Hu, patrol community service officer EKG Tat1 Joseline Goncalves [facility] Yury Gregory MD MD wa Corrections: (The following items were deleted from the chart) 10:21 10:12 Presenting complaint: Patient states: She was eating breakfast this morning and aj1 she had a coughing spell and felt like she was choking on mucus, afterwards she felt short of breath for a few minutes. Patient reports that's that she coughed up "a lot of mucus in the ambulance" and now her shortness of breath has resolved. Patient reports that she has been having nasal drainage and watery eyes. Her PCP is out of town so she was concerned she would not be able to get an appointment today. aj1 15:11 13:47 BP 120 / 55; Pulse 84bpm; Resp 18bpm; Pulse Ox 98% RA; aj1 aj1 18:33 17:47 BP 144 / 86; Pulse 91bpm; Resp 18bpm; Pulse Ox 99% RA; aj1 aj1
--- NOTE | 2018-06-26 14:19 | EDPHYS ---
Physician Documentation [facility] Name: Jeannie Whitlock Age: 88 yrs Sex: Female : 1930 Arrival Date: 06/26/2018 Time: 10:12 Bed 17 Private MD: ED Physician Yury Gregory HPI: 06/26 10:40 This 88 yrs old Female presents to ER via EMS with complaints of Shortness Of wa Breath. 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 states in route with EMS, coughed up a large piece of mucous. states feels better now. denies chest pain or SOB at this time. . Onset: The symptoms/episode began/occurred just prior to arrival. Duration: The symptoms are continuous, resolved. The patient's shortness of breath is aggravated by coughing, is alleviated by nothing. Associated signs and symptoms: Pertinent positives: productive cough, Pertinent negatives: chest pain, diaphoresis, dizziness, fever, hemoptysis, loss of consciousness, visual changes, vomiting. Severity of symptoms: At their worst the symptoms were moderate in the emergency department the symptoms have resolved. The patient has experienced similar episodes in the past, a few times. The patient has not recently seen a physician. h/o lung CA, COPD and CHF. states Dr. Robles is covering for her doctor. Historical: - Allergies: 10:20 Codeine; aj1 10:20 CT Dye; aj1 10:20 Demerol; aj1 10:20 Ibuprofen; aj1 10:20 Iodine; aj1 10:20 Meperidine; aj1 10:20 metformin; aj1 10:20 Morphine; aj1 10:20 PENICILLINS; aj1 10:20 Lcbtgzf-Dgz-Yxz Reductase Inhibitor; aj1 10:20 Tape; aj1 - Home Meds: 10:20 Humalog Mix 75-25 100 unit/mL (75-25) Sub-Q susp 36 units in the morning, 14 units in aj1 the evening [Active]; furosemide 20 mg Oral tab 1 tab once daily [Active]; amiodarone 100 mg Oral tab 1 tab once daily [Active]; metoprolol tartrate 25 mg Oral tab 1 tab 2 times per day [Active]; lisinopril 5 mg oral tab 1 tab once daily [Active]; Probiotic Oral daily [Active]; Ocuvite 027-14-5-150 wi-rmza-my-mg Oral cap daily [Active]; Vitamin D Oral twice a day [Active]; CoQ-10 100 mg Oral cap nightly [Active]; krill oil 1000 mg daily Oral [Active]; Brovana 15 mcg/2 mL inhalation nebu daily [Active]; Spiriva with HandiHaler 18 mcg inhalation CpDv 1 cap once daily [Active]; - PMHx: 10:20 Cancer, Lung; CHF; Diabetes - IDDM; High Cholesterol; Hypertension; aj1 - Immunization history:: Flu vaccine is up to date. - Social history:: Smoking status: Patient/guardian denies using tobacco. - Ebola Screening: : Patient denies travel to an Ebola-affected area in the 21 days before illness onset. - Family history:: not pertinent. - Hospitalizations: : No recent hospitalization is reported. ROS: 10:47 Constitutional: Negative for fever, chills, and weight loss, Eyes: Negative for injury, wa pain, redness, and discharge, ENT: Negative for injury, pain, and discharge, Neck: Negative for injury, pain, and swelling, Abdomen/GI: Negative for abdominal pain, nausea, vomiting, diarrhea, and constipation, Back: Negative for injury and pain, : Negative for injury, bleeding, discharge, and swelling, MS/Extremity: Negative for injury and deformity, Skin: Negative for injury, rash, and discoloration, Neuro: Negative for headache, weakness, numbness, tingling, and seizure, Psych: Negative for depression, anxiety, suicide ideation, homicidal ideation, and hallucinations. 10:47 Cardiovascular: Positive for Negative for chest pain, edema, orthopnea, palpitations, paroxysmal nocturnal dyspnea. 10:47 Respiratory: Positive for shortness of breath, at rest. Negative for wheezing. Exam: 10:48 Constitutional: This is a well developed, well nourished patient who is awake, alert, wa and in no acute distress. Head/Face: Normocephalic, atraumatic. Eyes: Pupils equal round and reactive to light, extra-ocular motions intact. Lids and lashes normal. Conjunctiva and sclera are non-icteric and not injected. Cornea within normal limits. Periorbital areas with no swelling, redness, or edema. ENT: Nares patent. No nasal discharge, no septal abnormalities noted. Tympanic membranes are normal and external auditory canals are clear. Oropharynx with no redness, swelling, or masses, exudates, or evidence of obstruction, uvula midline. Mucous membranes moist. Neck: Trachea midline, no thyromegaly or masses palpated, and no cervical lymphadenopathy. Supple, full range of motion without nuchal rigidity, or vertebral point tenderness. No Meningismus. Chest/axilla: Normal chest wall appearance and motion. Nontender with no deformity. No lesions are appreciated. Cardiovascular: Regular rate and rhythm with a normal S1 and S2. No gallops, murmurs, or rubs. Normal PMI, no JVD. No pulse deficits. Abdomen/GI: Soft, non-tender, with normal bowel sounds. No distension or tympany. No guarding or rebound. No evidence of tenderness throughout. Back: No spinal tenderness. No costovertebral tenderness. Full range of motion. Skin: Warm, dry with normal turgor. Normal color with no rashes, no lesions, and no evidence of cellulitis. MS/ Extremity: Pulses equal, no cyanosis. Neurovascular intact. Full, normal range of motion. Neuro: Awake and alert, GCS 15, oriented to person, place, time, and situation. Cranial nerves II-XII grossly intact. Motor strength 5/5 in all extremities. Sensory grossly intact. Cerebellar exam normal. Normal gait. Psych: Awake, alert, with orientation to person, place and time. Behavior, mood, and affect are within normal limits. 10:48 Respiratory: the patient does not display signs of respiratory distress, Respirations: normal, Breath sounds: mildly scattered coarseness noted on auscultation, Respiratory rate: normal Vital Signs: 10:20 BP 110 / 45; Pulse 75; Resp 15; Temp 97.7(O); Pulse Ox 99% on 4 lpm NC; Weight 68.04 kg aj1 (R); Height 5 ft. 4 in. (162.56 cm) (R); Pain 0/10; 11:25 BP 111 / 49; Pulse 74; Resp 16; Pulse Ox 100% on 4 lpm NC; aj1 12:46 BP 111 / 53; Pulse 76; Resp 18; Temp 97.8(TE); Pulse Ox 99% on 3 lpm NC; 5 13:47 BP 120 / 55; Pulse 84; Resp 18; Pulse Ox 98% on 3 lpm NC; aj1 14:45 BP 133 / 53; Pulse 84; Resp 20; Temp 98.2; Pulse Ox 100% on 3 lpm NC; aj1 15:57 BP 129 / 72; Pulse 86; Resp 20; Temp 98.0(O); Pulse Ox 100% on 3 lpm NC; 5 16:45 BP 138 / 59; Pulse 85; Resp 18; Pulse Ox 100% on 3 lpm NC; aj1 17:47 BP 144 / 86; Pulse 91; Resp 18; Pulse Ox 99% on 3 lpm NC; 1 18:45 BP 137 / 62; Pulse 88; Resp 20; Temp 98.7(O); Pulse Ox 99% on 3 lpm NC; 1 10:20 Body Mass Index 25.75 (68.04 kg, 162.56 cm) [facility] MDM: 10:24 Patient medically screened. dc 10:51 Differential diagnosis: symptoms concerning for an episode of aspiration. However pt's wa age and med history warrants a broader differential. will monitor, eval and reassess. 13:27 Data reviewed: vital signs, nurses notes, lab test result(s), EKG, radiologic studies. dc Test interpretation: by ED physician or midlevel provider:. 14:07 Test interpretation: by ED physician or midlevel provider: EKG: HR 71. nml axis. wa non-specific interventricular delay. noted ST-T wave changes, non-specific. 14:09 Test interpretation: by ED physician or midlevel provider: CXR: Emphesema. no acute wa process. 14:12 Test interpretation: by ED physician or midlevel provider: EKG compared to 04/12/18. wa concaved in V1-V3 today. different from previous. ED course: asyptomatic. at baseline in ED. will admit for obs, r/o ACS in the setting of potential EKG change. 14:17 Physician consultation: Darrell Robles MD was called at 14:17, regarding admission, to dc the telemetry unit. Admission orders: after a detailed discussion of the patient's condition and case, the admit orders are written by tx. 06/26 10:40 Order name: BMP; Complete Time: 13:04 dc 06/26 10:40 Order name: CBC with Diff; Complete Time: 11:43 dc 06/26 10:40 Order name: Hepatic Function; Complete Time: 13:04 dc 06/26 10:40 Order name: Magnesium; Complete Time: 13:05 dc 06/26 10:40 Order name: NT PRO-BNP; Complete Time: 13:04 dc 06/26 10:40 Order name: PT-INR; Complete Time: 13: dc 06/26 10:40 Order name: Troponin (emerg Dept Use Only); Complete Time: 13: dc 06/26 11:44 Order name: Urine Dipstick--Ancillary (enter results); Complete Time: 13:26 06/26 11:44 Order name: Urine Microscopic Only; Complete Time: 13:04 dc 06/26 14:24 Order name: Basic Metabolic Panel EDMS 06/26 14:24 Order name: Basic Metabolic Panel EDMS 06/26 14:24 Order name: CBC with Automated Diff EDMS 06/26 14:24 Order name: CBC with Automated Diff EDMS 06/26 14:24 Order name: Troponin I EDMS 06/26 10:40 Order name: XRAY CXR (1 view); Complete Time: 11:43 dc 06/26 10:40 Order name: EKG; Complete Time: 10:40 dc 06/26 10:40 Order name: Cardiac monitoring; Complete Time: 10:42 dc 06/26 10:40 Order name: EKG - Nurse/Tech; Complete Time: 11:23 dc 06/26 10:40 Order name: IV Saline Lock; Complete Time: 11:23 dc 06/26 10:40 Order name: Labs collected and sent; Complete Time: 11:24 dc 06/26 10:40 Order name: O2 Per Protocol; Complete Time: 10:42 dc 06/26 14:24 Order name: Consistent Carb (ADA) 1800 [address] EDMS 06/26 14:24 Order name: EKG Electrocardiogram EDMS 06/26 14:24 Order name: EKG Electrocardiogram EDMS 06/26 14:24 Order name: EKG Electrocardiogram EDMS 06/26 14:24 Order name: EKG Electrocardiogram EDMS 06/26 14:24 Order name: Troponin I EDMS 06/26 14:24 Order name: Troponin I [facility] 06/26 19:44 Order name: Troponin I [facility] 06/26 10:40 Order name: O2 Sat Monitoring; Complete Time: 10:42 dc 06/26 11:44 Order name: Urine Dipstick-Ancillary (obtain specimen); Complete Time: 13:27 dc Administered Medications: 11:47 Drug: Xopenex 1.25 mg Route: Inhalation; [facility] 13:00 Follow up: Response: No adverse reaction aj1 Disposition: 06/26/18 14:18 Hospitalization ordered by Darrell Robles for Observation. Preliminary diagnosis is Acute Shortness of Breath. - Bed requested for Telemetry/MedSurg (observation). - Status is Observation. bb - Condition is Stable. - Problem is new. - Symptoms have improved. UTI on Admission? No Signatures: Dispatcher [employer] [facility] Bonnie Salazar Angela, RN RN aj1 Sarah Carroll RN RN bb Yury Gregory MD MD dc Corrections: (The following items were deleted from the chart) 18:07 14:18 Hospitalization Ordered by Darrell Robles MD for Observation. Preliminary diagnosis bd is Acute Shortness of Breath. Bed requested for Telemetry/MedSurg (observation). Status is Observation. Condition is Stable. Problem is new. Symptoms have improved. UTI on Admission? No. wa 20:18 18:07 06/26/2018 14:18 Hospitalization Ordered by Darrell Robles MD for Observation. bb Preliminary diagnosis is Acute Shortness of Breath. Bed requested for Telemetry/MedSurg (observation). Status is Observation. Condition is Stable. Problem is new. Symptoms have improved. UTI on Admission? No. bd
--- NOTE | 2018-06-26 15:42 | EKG ---
Test Date: 2018-06-26 Test Time: 10:58:00 Service Porter: MARIOLA MEASUREMENT RESULTS: Intervals: Rate: 71 [place]: QRSD: 128 QT: 456 QTc: 495 [place]: P: [place]: QRS: -1 T: 104 INTERPRETIVE STATEMENTS: Sinus rhythm Nonspecific intraventricular block Abnormal QRS-T angle, consider primary T wave abnormality Abnormal ECG Compared to ECG 04/12/2018 23:53:25 no significant change from previous ECG Electronically Signed On 06-26-18 15:41:27 CDT by Franklin Nascimento
[2018-06-26 20:49] VITALS: BMI 26.1
[2018-06-26] MEDS ORDERED: IPRATROPIUM BROM 0.5MG/2.5ML NEB PRN (23:04)
[2018-06-26] MEDS ORDERED: ALBUTEROL 2.5 MG/3 ML NEB SOL NEB PRN (23:04)
[2018-06-26 23:18] VITALS: O2SAT 96
[2018-06-27 06:01] LABS: Absolute Lymphocytes (CBC) 1.9 K/uL (0.7-4.9); Absolute Monocytes 0.7 K/uL (0.1-1.3); Absolute Neutrophil 3.4 K/uL (1.8-8.0); Basophils % 0.9 % (0-1.3); Hematocrit 31.8 % (36.0-45.0); Lymphocytes % 30.9 % (15.3-44.8); MPV 7.9 fL (7.6-11.3); Monocytes % 10.9 % (3.3-12.3); RBC Red Blood Cell Count 3.43 M/uL (3.86-4.86)
[2018-06-27 06:15] LABS: Potassium 3.8 mmol/L (3.5-5.1)
[2018-06-27] MEDS ORDERED: ONDANSETRON 4 MG/2 ML VIAL IV ONE (08:37)
[2018-06-27] MEDS ORDERED: ONDANSETRON 4 MG/2 ML VIAL IV PRN (08:41)
--- NOTE | 2018-06-27 08:55 | P.SSS ---
Patient History Date of Service: 06/27/18 Allergies codeine [Codeine] Allergy (Mild, Verified 01/25/18 12:02) Itching Penicillins Allergy (Mild, Verified 01/25/18 12:02) Nausea/Vomiting ciprofloxacin [From Cipro] Allergy (Verified 04/12/18 14:04) Shortness of breath iodine Allergy (Verified 01/25/18 12:03) Unknown meperidine [From Demerol] Allergy (Verified 01/25/18 12:02) Unknown metformin Allergy (Verified 01/25/18 12:02) Nausea/Vomiting morphine Allergy (Verified 01/25/18 12:02) Unknown Rofvfcr-Yjm-Urf Reductase Inhibitor Allergy (Verified 01/25/18 12:02) Nausea/Vomiting CT Dye Allergy (Uncoded 01/25/18 12:02) Unknown Tape Allergy (Uncoded 01/25/18 12:02) Itching Home Medications: Arformoterol Tartrate [Brovana] 15 mcg IH DAILY 06/27/18 FA/Vit C/E/Zinc/Copper/Lut/Ivory [Ocuvel Capsule] 1 each PO DAILY 06/27/18 Furosemide [Lasix] 20 mg PO DAILY 06/27/18 Insulis Lispro MIX 75/25 [Humalog Mix 75/25*] 14 units SQ DAILY AT SUPPER Insulis Lispro MIX 75/25 [Humalog Mix 75/25*] 36 units SQ BREAKFAST 06/27/18 Krill/Om-3/Dha/Epa/Phospho/Ast [Krill Oil 1,000 mg Softgel] 1 cap PO DAILY 06/27 L.acidoph,Paracasei, B.lactis [Probiotic] 1 each PO DAILY 06/27/18 Lisinopril [Prinivil] 5 mg PO DAILY 06/27/18 Metoprolol Tartrate [Lopressor] 25 mg PO BID 06/27/18 RX: Amiodarone HCl 100 mg PO DAILY 06/27/18 Tiotropium [Spiriva Handihaler*] 1 dose IH DAILY 06/27/18 Ubidecarenone/Vit E Acetate [Co Q-10 100 mg Softgel] 1 cap PO DAILY 06/27/18 predniSONE [Deltasone] 5 mg PO DAILY 06/27/18 - Past Medical/Surgical History Has patient received pneumonia vaccine in the past: Yes Diabetic: Yes -: DM -: COPD -: LUNG CA -: CHF -: htn -: hyperlipidemia -: uti -: cad -: AAA -: cardiomyopathy -: Cataract sx R eye -: 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) -: Triple Bypass in 1999 -: Upper teeth removd -: chloesectomy -: appendectomy -: bladder surgery -: AAA repair using straight graft (2014) - Family History Father -: Diabetes Notes: asthma, tuberculosis, pneumonia Mother -: Heart disease, Stroke Notes: pneumonia - Social History Smoking Status: Former smoker Alcohol use: No CD- Drugs: No Caffeine use: No Place of Residence: Home Physical Examination - Vital Signs Temperature: 97.1 F Blood Pressure: 178/74 Pulse: 105 Respirations: 18 Pulse Ox (%): 94 - Studies Laboratory Data (last 24 hrs) 06/26/18 15:50: Troponin I < 0.02 06/26/18 11:20: PT 12.1, INR 1.03 06/26/18 11:20: WBC 8.0, Hgb 11.7 L, Hct 35.5 L, Plt Count 174 06/26/18 11:20: Sodium 143, Potassium 3.8, BUN 19 H, Creatinine 0.98, Glucose 131 H, Magnesium 2.1, Total Bilirubin 0.4, AST 13 L, ALT 13, Alkaline Phosphatase 49 - Disposition Disposition: ROUTINE DISCHARGE
[2018-06-27] MEDS ORDERED: FUROSEMIDE 20 MG TABLET PO SCH (09:00)
[2018-06-27] MEDS ORDERED: VIT E ACETATE PO SCH (09:00)
[2018-06-27] MEDS ORDERED: METOPROLOL TAR 25 MG TAB PO SCH (09:00)
[2018-06-27] MEDS ORDERED: LISINOPRIL 5 MG TAB PO SCH (09:00)
[2018-06-27] MEDS ORDERED: ARFORMOTEROL TARTRATE 15 MCG/2 ML VIAL.NEB IH SCH (09:00)
[2018-06-27] MEDS ORDERED: TIOTROPIUM IH SCH (09:00)
[2018-06-27] MEDS ORDERED: ASPIRIN EC 81 MG TAB PO SCH (09:00)
[2018-06-27] MEDS ORDERED: UBIDECARENONE PO SCH (09:00)
[2018-06-27] MEDS ORDERED: predniSONE 5 MG TAB PO SCH (09:00)
[2018-06-27] MEDS ORDERED: AMIODARONE HCL 200 MG TAB PO SCH (09:00)
[2018-06-27] MEDS ORDERED: HUMALOG MIX 75/25 100 UNITS/ML SQ SCH ×2 (10:15→17:00)
--- NOTE | 2018-06-27 10:51 | P.SSS ---
Patient History Date of Service: 06/27/18 Primary Care Provider: Vinay Romano Reason for admission: shortness of breath, abnormal EKG History of Present Illness: Patient of Vinay Juan Antonio. She has a a history of afib. Came in for shortness of breath. She had a negative troponin. However there was some EKG changes. So was admitted for observation. The patient has had 3 negative troponins. She is having some nausea. Did not get zofran. Which she take chronically at home. Otherwise no complaints of chest pain. Allergies codeine [Codeine] Allergy (Mild, Verified 01/25/18 12:02) Itching Penicillins Allergy (Mild, Verified 01/25/18 12:02) Nausea/Vomiting ciprofloxacin [From Cipro] Allergy (Verified 04/12/18 14:04) Shortness of breath iodine Allergy (Verified 01/25/18 12:03) Unknown meperidine [From Demerol] Allergy (Verified 01/25/18 12:02) Unknown metformin Allergy (Verified 01/25/18 12:02) Nausea/Vomiting morphine Allergy (Verified 01/25/18 12:02) Unknown Ehxatha-Wci-Ipr Reductase Inhibitor Allergy (Verified 01/25/18 12:02) Nausea/Vomiting CT Dye Allergy (Uncoded 01/25/18 12:02) Unknown Tape Allergy (Uncoded 01/25/18 12:02) Itching Home Medications: Amiodarone HCl 100 mg PO DAILY 06/27/18 Arformoterol Tartrate [Brovana] 15 mcg IH DAILY 06/27/18 FA/Vit C/E/Zinc/Copper/Lut/Ivory [Ocuvel Capsule] 1 each PO DAILY 06/27/18 Furosemide [Lasix] 20 mg PO DAILY 06/27/18 Insulis Lispro MIX 75/25 [Humalog Mix 75/25*] 14 units SQ DAILY AT SUPPER Insulis Lispro MIX 75/25 [Humalog Mix 75/25*] 36 units SQ BREAKFAST 06/27/18 Krill/Om-3/Dha/Epa/Phospho/Ast [Krill Oil 1,000 mg Softgel] 1 cap PO DAILY 06/27 L.acidoph,Paracasei, B.lactis [Probiotic] 1 each PO DAILY 06/27/18 Lisinopril [Prinivil] 5 mg PO DAILY 06/27/18 Metoprolol Tartrate [Lopressor] 25 mg PO BID 06/27/18 Tiotropium [Spiriva Handihaler*] 1 dose IH DAILY 06/27/18 Ubidecarenone/Vit E Acetate [Co Q-10 100 mg Softgel] 1 cap PO DAILY 06/27/18 predniSONE [Deltasone] 5 mg PO DAILY 06/27/18 - Past Medical/Surgical History Has patient received pneumonia vaccine in the past: Yes Diabetic: Yes -: DM -: COPD -: LUNG CA -: CHF -: htn -: hyperlipidemia -: uti -: cad -: AAA -: cardiomyopathy -: Cataract sx R eye -: 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) -: Triple Bypass in 1999 -: Upper teeth removd -: chloesectomy -: appendectomy -: bladder surgery -: AAA repair using straight graft (2014) - Family History Father -: Diabetes Notes: asthma, tuberculosis, pneumonia Mother -: Heart disease, Stroke Notes: pneumonia - Social History Smoking Status: Former smoker Alcohol use: No CD- Drugs: No Caffeine use: No Place of Residence: Home Review of Systems 10-point ROS is otherwise unremarkable Gastrointestinal: Nausea Physical Examination - Vital Signs Temperature: 97.1 F Blood Pressure: 178/74 Pulse: 105 Respirations: 18 Pulse Ox (%): 94 - Physical Exam General: Alert, In no apparent distress HEENT: Atraumatic, PERRLA, Mucous membr. moist/pink, EOMI, Sclerae nonicteric Neck: Supple, 2+ carotid pulse no bruit, No LAD, Without JVD or thyroid abnormality Respiratory: Clear to auscultation bilaterally, Normal air movement Cardiovascular: Regular rate/rhythm, Normal S1 S2 Gastrointestinal: Normal bowel sounds, No tenderness Musculoskeletal: No tenderness Integumentary: No rashes Neurological: Normal gait, Normal speech, Normal strength at 5/5 x4 extr, Normal tone, Normal affect Lymphatics: No axilla or inguinal lymphadenopathy - Studies Laboratory Data (last 24 hrs) 06/26/18 15:50: Troponin I < 0.02 06/26/18 11:20: PT 12.1, INR 1.03 06/26/18 11:20: WBC 8.0, Hgb 11.7 L, Hct 35.5 L, Plt Count 174 06/26/18 11:20: Sodium 143, Potassium 3.8, BUN 19 H, Creatinine 0.98, Glucose 131 H, Magnesium 2.1, Total Bilirubin 0.4, AST 13 L, ALT 13, Alkaline Phosphatase 49 - Diagnosis (Problem(s)) (1) Nonspecific ST-T wave electrocardiographic changes Current Visit: Yes Status: Acute Plan: Negative cardiac damage. Will have her follow up with Annia. Can consider an outpatient referal back to cardiology. (2) Dyspnea Current Visit: No Status: Acute Plan: She has a history of copd, on chronic steroids. She is currently at baseline. Qualifiers: Dyspnea type: dyspnea on exertion Qualified Code(s): R06.09 - Other forms of dyspnea - Disposition Disposition: ROUTINE DISCHARGE Condition: GOOD Diet: AHA Activity: Ad david Critical Care: No Time Spent Managing Pts Care (In Minutes): 30
[2018-06-27 12:27] VITALS: BP 148/64; TEMP 97.7
[2018-06-27] MEDS ORDERED: ENOXAPARIN 40 MG/0.4 ML SQ SCH (17:00)
[2018-06-28] MEDS ORDERED: PANTOPRAZOLE 40MG TABLET PO SCH (06:30)
--- NOTE | 2018-06-28 07:53 | EKG ---
Test Date: 2018-06-27 Test Time: 08:03:10 Net Fisher: MARIOLA MEASUREMENT RESULTS: Intervals: Rate: 85 [place]: 170 QRSD: 126 QT: 448 QTc: [address]: P: 86 [place]: 170 QRS: 37 T: 94 INTERPRETIVE STATEMENTS: Normal sinus rhythm Nonspecific intraventricular block Cannot rule out Septal infarct, age undetermined Abnormal ECG Compared to ECG 06/26/2018 10:58:00 Myocardial infarct finding now present T-wave abnormality no longer present Electronically Signed On 06-28-18 07:52:32 CDT by Franklin Nascimento
[2018-06-28] MEDS ORDERED: HUMALOG MIX 75/25 100 UNITS/ML SQ SCH (08:00)
== END 2018-06-27 13:14 | disposition home health service (06) ==
LOC: ER 10:04 → ERHOLD 16:27 → 2ND 19:36
PROVIDERS: ADMIT Internal Medicine; ATTEND Internal Medicine
DX: I45.4 Nonspecific intraventricular block (principal); R94.31 Abnormal electrocardiogram [ECG] [EKG]; R06.00 Dyspnea, unspecified; I48.91 Unspecified atrial fibrillation; E11.9 Type 2 diabetes mellitus without complications; E78.5 Hyperlipidemia, unspecified; I11.0 Hypertensive heart disease with heart failure; I50.9 Heart failure, unspecified; I25.10 Atherosclerotic heart disease of native coronary artery without angina pectoris; J44.9 Chronic obstructive pulmonary disease, unspecified; Z79.4 Long term (current) use of insulin; Z79.52 Long term (current) use of systemic steroids; Z79.899 Other long term (current) drug therapy; Z95.1 Presence of aortocoronary bypass graft; Z95.810 Presence of automatic (implantable) cardiac defibrillator; Z87.891 Personal history of nicotine dependence; Z85.118 Personal history of other malignant neoplasm of bronchus and lung
CPT/HCPCS: 93005 ×2; 85025 ×2; 80048 ×2; 36415; 83735; 85610; 82962 ×4; 80076; 84484 ×4; 83880; 71045; 94640; 99285; J7605; J2405 ×2; G0378 ×2; 81003; 81015; J7512

== ENCOUNTER 2018-08-01 17:00 | Emergency (ER) | payer OTHER, MEDICARE ==
--- OUTSIDE RECORDS SUMMARY | 2018-08-01 17:04 | XMS REPORT ---
:1930 [facility] [address] [place] [address] Care Team Providers Name Role Phone Unavailable Unavailable Unavailable Payers Payer Name Policy Type Policy Number Effective Date Expiration Date Problems This patient has no known problems. Allergies, Adverse Reactions, Alerts Allergy Name Allergy Status Severity Reaction(s) Onset Inactive Treating Comments Type Date Date Clinician iodine DA Active MO 08 00:00: 00 ciprofloxacin DA Active U 3- 00:00: 00 Yisofol-Mio-Fqk DA Active U Reductase 3- Inhibitor 00:00: [...] (test code=GLUBED) 165 MG/DL 60-99 GLUCOSE BEDSIDE [id number] 08:35:00 Test Item Value Reference Range Comments GLUCOSE BEDSIDE TESTING (test code=GLUBED) 106 MG/DL 60-99 GLUCOSE BEDSIDE [id number] 21:27:00 Test Item Value Reference Range Comments GLUCOSE BEDSIDE TESTING (test code=GLUBED) 120 MG/DL 60-99 GLUCOSE BEDSIDE [id number] 16:37:00 Test Item Value Reference Range Comments GLUCOSE BEDSIDE TESTING (test code=GLUBED) 203 MG/DL 60-99 GLUCOSE BEDSIDE [id number] 12:26:00 Test Item Value Reference Range Comments GLUCOSE BEDSIDE TESTING (test code=GLUBED) 96 MG/DL 60-99 GLUCOSE BEDSIDE [id number] 07:56:00 Test Item Value Reference Range Comments GLUCOSE BEDSIDE TESTING (test code=GLUBED) 153 MG/DL 60-99 GLUCOSE BEDSIDE [id number] 20:19:00 Test Item Value Reference Range Comments GLUCOSE BEDSIDE TESTING (test code=GLUBED) 229 MG/DL 60-99 GLUCOSE BEDSIDE [id number] 16:49:00 Test Item Value Reference Range Comments GLUCOSE BEDSIDE TESTING (test code=GLUBED) 191 MG/DL 60-99 GLUCOSE BEDSIDE [id number] 12:48:00 Test Item Value Reference Range Comments GLUCOSE BEDSIDE TESTING (test code=GLUBED) 194 MG/DL 60-99 GLUCOSE BEDSIDE [id number] 07:39:00 Test Item Value Reference Range Comments GLUCOSE BEDSIDE TESTING (test code=GLUBED) 200 MG/DL 60-99 GLUCOSE BEDSIDE [id number] 05:51:00 Test Item Value Reference Range Comments GLUCOSE BEDSIDE TESTING (test code=GLUBED) 225 MG/DL 60-99 GLUCOSE BEDSIDE [id number] 23:44:00 Test Item Value Reference Range Comments GLUCOSE BEDSIDE TESTING (test 441 MG/DL 60-99 Call Lab Stat GLu~ code=GLUBED) [id number] 21:43:00 Test Item Value Reference Range Comments GLUCOSE (test code=GLU) 392 MG/DL 74-106 CALLED TO MAINE Castrejon& READGIOVANNY ON 04/21/18 AT 2143 BY Annie Blackmon GLUCOSE BEDSIDE [id number] 17:57:00 Test Item Value Reference Range Comments GLUCOSE BEDSIDE TESTING (test code=GLUBED) 257 MG/DL 60-99 - XR CHEST [id number] 17:15:00 Patient Name: SUSANA YAO Unit No: [id number] EXAMS: CPT CODE: [id number] XR CHEST 1V 40834 Location: T18 CHEST X-RAY: Portable AP frontal [...] Sofi Haider (RT) (AART) Transcrpt Date/Tm/Trnsp: 04/21/2018 (0303) t.SDR.DAS6 Orig Print D/T: S: 04/21/2018 (7683) [facility] NAME: SUSANA YAO [id number] PHYS: [place] [address] : 1930 AGE: 88 SEX: F LOC: Z.352 A PHONE #: [phone] EXAM DATE: 04/21/2018 STATUS: ADM IN FAX #: [phone] RADIOLOGY NO: PAGE 1 Signed ReportGLUCOSE BEDSIDE [id number] 16:57:00 Test Item Value Reference Range Comments GLUCOSE BEDSIDE TESTING (test code=GLUBED) 147 MG/DL 60-99 PROTHROMBIN [id number] 11:24:00 Test Item Value Reference Range Comments [...] systemic embolism. 3.0 - 4.5 Comments to Deputy Sheriff Chief: PLEASE DRAW ASAPPTT [id number] 11:24:00 Test Item Value Reference Range Comments PTT ACTIVATED (test code=APTT) 24.2 SECONDS 22.0-33.0 Comments to Deputy Sheriff Chief: PLEASE DRAW ASAPGLUCOSE BEDSIDE [id number] 08: 03:00 Test Item Value Reference Range Comments GLUCOSE BEDSIDE TESTING (test code=GLUBED) 129 MG/DL 60-99 GLUCOSE BEDSIDE [id number] 21:47:00 Test Item Value Reference Range Comments GLUCOSE BEDSIDE TESTING (test code=GLUBED) 199 MG/DL 60-99 GLUCOSE BEDSIDE [id number] 16:15:00 Test Item Value Reference Range Comments GLUCOSE BEDSIDE TESTING (test code=GLUBED) 91 MG/DL 60-99 GLUCOSE BEDSIDE [id number] 12:34:00 Test Item Value Reference Range Comments GLUCOSE BEDSIDE TESTING (test code=GLUBED) 109 MG/DL 60-99 BASIC METABOLIC [id number] 11:32:00 Test Item Value Reference Range Comments [...] HIGH.........130-159 mg/dL HIGH.........160-189 mg/dL VERY HIGH.........>/=190 mg/dL [id number] 11:32:00 Test Item Value Reference Range Comments TROPONIN-I (test 0.572 NG/ML 0.012-0.033 CALLED TO RAY& READBACK ON code=TROPI) 04/20/18 AT 1132 BY Alberto Betancur BASIC METABOLIC [id number] 11:14:00 Test Item Value Reference Range Comments [...] code=HDL) LIPOPROTEIN LDL (test MG/DL 0-99 code=LDL) [id number] 11:14:00 Test Item Value Reference Range Comments TROPONIN-I (test code=TROPI) NG/ML 0.0-0.045 GLYCOSYLATED HEMOGLOBIN [id number] 11:11:00 Test Item Value Reference Range Comments [...] (test 151 MG/DL 70-110 code=MBG) CBC W/AUTO [id number] 10:48:00 Test Item Value Reference Range Comments [...] (test code=NRBC#) 0.00 K/mm3 0.0-0.1 GLUCOSE BEDSIDE [id number] 08:27:00 Test Item Value Reference Range Comments GLUCOSE BEDSIDE TESTING (test code=GLUBED) 112 MG/DL 60-99 GLUCOSE BEDSIDE [id number] 06:18:00 Test Item Value Reference Range Comments GLUCOSE BEDSIDE TESTING (test code=GLUBED) 92 MG/DL 60-99 [id number] 02:10:00 Test Item Value Reference Range Comments TROPONIN-I (test 0.679 NG/ML 0.012-0.033 CALLED TO [facility] imu & code=TROPI) READBACK ON 04/20/18 AT 0209 BY Sejal Monson GLUCOSE BEDSIDE [id number] 23:12:00 Test Item Value Reference Range Comments GLUCOSE BEDSIDE TESTING (test code=GLUBED) 196 MG/DL 60-99 BASIC METABOLIC [id number] 21:51:00 Test Item Value Reference Range Comments [...] (test code=CA) 9.5 MG/DL 8.4-10.2 CBC W/AUTO [id number] 21:32:00 Test Item Value Reference Range Comments [...] (test code=NRBC#) 0.00 K/mm3 0.0-0.1 LIPOPROTEIN LDL [id number] 19:21:00 Test Item Value Reference Range Comments LIPOPROTEIN LDL DIRECT (test 126 mg/dL 100-129 code=LDLDIR) ===Reference Interval: mg/dL mmol/L ---------Optimal <100 <2.6Near/above optimal 100-129 2.6-3.3Borderline High 130-159 3.4-4.1High 160-189 4.1-4.9Very High >=190 >=4.9=========This LDL result is a direct measurement.========= [id number] 19:21:00 Test Item Value Reference Range Comments TROPONIN-I (test 0.720 NG/ML 0.012-0.033 CALLED TO KHRIS Oakes & code=TROPI) READBACK ON 04/19/18 AT 1901 Karen Gilbert LIPOPROTEIN LDL [id number] 19:04:00 Test Item Value Reference Range Comments LIPOPROTEIN LDL DIRECT (test code=LDLDIR) mg/dL 100-129 [id number] 19:04:00 Test Item Value Reference Range Comments TROPONIN-I (test 0.720 NG/ML 0.012-0.033 CALLED TO KHRIS Oakes & code=TROPI) READBACK ON 04/19/18 AT 1901 Karne Gilbert GLUCOSE BEDSIDE [id number] 12:58:00 Test Item Value Reference Range Comments GLUCOSE BEDSIDE TESTING (test code=GLUBED) 289 MG/DL 60-99 GLUCOSE BEDSIDE [id number] 08:36:00 Test Item Value Reference Range Comments GLUCOSE BEDSIDE TESTING (test code=GLUBED) 128 MG/DL 60-99 GLUCOSE BEDSIDE [id number] 20:27:00 Test Item Value Reference Range Comments GLUCOSE BEDSIDE TESTING (test code=GLUBED) 214 MG/DL 60-99 GLUCOSE BEDSIDE [id number] 16:59:00 Test Item Value Reference Range Comments GLUCOSE BEDSIDE TESTING (test code=GLUBED) 313 MG/DL 60-99 GLUCOSE BEDSIDE [id number] 12:15:00 Test Item Value Reference Range Comments GLUCOSE BEDSIDE TESTING (test code=GLUBED) 141 MG/DL 60-99 GLUCOSE BEDSIDE [id number] 10:30:00 Test Item Value Reference Range Comments GLUCOSE BEDSIDE TESTING (test code=GLUBED) 139 MG/DL 60-99 GLUCOSE BEDSIDE [id number] 07:52:00 Test Item Value Reference Range Comments GLUCOSE BEDSIDE TESTING (test code=GLUBED) 81 MG/DL 60-99 GLUCOSE BEDSIDE [id number] 18:39:00 Test Item Value Reference Range Comments GLUCOSE BEDSIDE TESTING (test code=GLUBED) 336 MG/DL 60-99 GLUCOSE BEDSIDE [id number] 12:50:00 Test Item Value Reference Range Comments GLUCOSE BEDSIDE TESTING (test code=GLUBED) 127 MG/DL 60-99 GLUCOSE BEDSIDE [id number] 12:49:00 Test Item Value Reference Range Comments GLUCOSE BEDSIDE TESTING (test code=GLUBED) 204 MG/DL 60-99 GLUCOSE BEDSIDE [id number] 20:45:00 Test Item Value Reference Range Comments GLUCOSE BEDSIDE TESTING (test code=GLUBED) 243 MG/DL 60-99 GLUCOSE BEDSIDE [id number] 16:05:00 Test Item Value Reference Range Comments GLUCOSE BEDSIDE TESTING (test code=GLUBED) 192 MG/DL 60-99 GLUCOSE BEDSIDE [id number] 11:02:00 Test Item Value Reference Range Comments GLUCOSE BEDSIDE TESTING (test code=GLUBED) 159 MG/DL 60-99 GLUCOSE BEDSIDE [id number] 07:43:00 Test Item Value Reference Range Comments GLUCOSE BEDSIDE TESTING (test code=GLUBED) 138 MG/DL 60-99 GLUCOSE BEDSIDE [id number] 04:20:00 Test Item Value Reference Range Comments GLUCOSE BEDSIDE TESTING (test code=GLUBED) 227 MG/DL 60-99 GLUCOSE BEDSIDE [id number] 04:20:00 Test Item Value Reference Range Comments GLUCOSE BEDSIDE TESTING (test code=GLUBED) 275 MG/DL 60-99 GLUCOSE BEDSIDE [id number] 20:27:00 Test Item Value Reference Range Comments GLUCOSE BEDSIDE TESTING (test code=GLUBED) 258 MG/DL 60-99 GLUCOSE BEDSIDE [id number] 17:10:00 Test Item Value Reference Range Comments GLUCOSE BEDSIDE TESTING (test code=GLUBED) 283 MG/DL 60-99 GLUCOSE BEDSIDE [id number] 05:52:00 Test Item Value Reference Range Comments GLUCOSE BEDSIDE TESTING (test code=GLUBED) 276 MG/DL 60-99 COMPREHENSIVE METABOLIC [id number] 21:59:00 Test Item Value Reference Range Comments [...] ALKALINE PHOSPHATASE (test 58 UNITS/L 38-126 code=ALKP) [id number] 21:59:00 Test Item Value Reference Range Comments PHOSPHOROUS (test code=PHOS) 2.4 MG/DL 2.5-4.5 [id number] 21:59:00 Test Item Value Reference Range Comments MAGNESIUM (test code=MAG) 2.1 MG/DL 1.6-2.3 CBC W/AUTO [id number] 21:46:00 Test Item Value Reference Range Comments [...] (test code=NRBC#) 0.00 K/mm3 0.0-0.1 GLUCOSE BEDSIDE [id number] 21:36:00 Test Item Value Reference Range Comments GLUCOSE BEDSIDE TESTING (test code=GLUBED) 268 MG/DL 60-99 GLUCOSE BEDSIDE [id number] 21:36:00 Test Item Value Reference Range Comments GLUCOSE BEDSIDE TESTING (test code=GLUBED) 223 MG/DL 60-99 GLUCOSE BEDSIDE [id number] 21:36:00 Test Item Value Reference Range Comments GLUCOSE BEDSIDE TESTING (test code=GLUBED) 147 MG/DL 60-99 GLUCOSE BEDSIDE [id number] 21:36:00 Test Item Value Reference Range Comments GLUCOSE BEDSIDE TESTING (test code=GLUBED) 194 MG/DL 60-99 - XR CHEST [id number] 20:15:00 Patient Name: SUSANA YAO Unit No: [id number] EXAMS: CPT CODE: [id number] XR CHEST 1V 75084 AP VIEW OF THE CHEST LOCATION: B2 [...] 04/14/2018 (2017) CATALINA Amarjit NAME: BUD [id number] PHYS: [place] [address] : 1930 AGE: 88 SEX: F LOC: [id number].SI11 A PHONE #: [phone] EXAM DATE: 04/14/2018 STATUS: ADM IN FAX #: [phone] RADIOLOGY NO: PAGE 1 Signed ReportGLUCOSE BEDSIDE [id number] 06:58:00 Test Item Value Reference Range Comments GLUCOSE BEDSIDE TESTING (test code=GLUBED) 230 MG/DL 60-99
[2018-08-01 18:01] LABS: Absolute Lymphocytes (CBC) 1.6 K/uL (0.7-4.9); Eosinophils % 0.9 % (0-4.4); Hematocrit 37.2 % (36.0-45.0); MPV 7.5 fL (7.6-11.3); Monocytes % 6.4 % (3.3-12.3); RBC Red Blood Cell Count 4.06 M/uL (3.86-4.86)
[2018-08-01 18:26] LABS: Albumin 3.2 g/dL (3.4-5.0); Bilirubin Direct 0.1 mg/dL (0-0.2); Bilirubin Total 0.4 mg/dL (0.2-1.0); Potassium 4.9 mmol/L (3.5-5.1); Protein, Total 6.7 g/dL (6.4-8.2)
[2018-08-01] MEDS ORDERED: METOCLOPRAMIDE 10 MG/2mL INJ ONE (18:33)
[2018-08-01] MEDS ORDERED: NA CHLORIDE 0.9% 250 ML ONE (18:33)
[2018-08-01 18:56] LABS: Urine Blood NEGATIVE (NEG); Urine Glucose NEGATIVE (NEG); Urine Protein NEGATIVE (NEG)
--- NOTE | 2018-08-01 19:19 | ER ---
Nurse's Notes [facility] Name: Jeannie Whitlock Age: 88 yrs Sex: Female : 1930 Arrival Date: 08/01/2018 Time: 17:03 Bed 26 Private MD: Diagnosis: Nausea and vomiting;Weakness Presentation: 08/01 17:09 Presenting complaint: EMS states: pt was started on abx for UTI but they caused abd sg discomfort as well as nausea and vomiting so she stopped taking the abx, was not started on any other medication. pt now complaining of weakness with fatigue while walking to the restroom, denies fever, reports N/V/D for 1-2 days. Transition of care: patient was not received from another setting of care. Onset of symptoms was August 01, 2018. Risk Assessment: Do you want to hurt yourself or someone else? Patient reports no desire to harm self or others. Initial Sepsis Screen: Does the patient meet any 2 criteria? No. Patient's initial sepsis screen is negative. Does the patient have a suspected source of infection? Yes: Dysuria/Frequency/Urgency/UTI. Care prior to arrival: Medication(s) given: Oxygen administered. via nasal cannula. 17:09 Method Of Arrival: EMS: [facility] sg 17:09 Acuity: IRENE 3 sg Historical: - Allergies: 17:14 Codeine; sg 17:14 CT Dye; sg 17:14 Demerol; sg 17:14 Ibuprofen; sg 17:14 Iodine; sg 17:14 Meperidine; sg 17:14 metformin; sg 17:14 Morphine; sg 17:14 PENICILLINS; sg 17:14 Ocfpzna-Nml-Zhp Reductase Inhibitor; sg 17:14 Tape; sg - Home Meds: 17:20 Humalog Mix 75-25 100 unit/mL (75-25) Sub-Q susp 36 units in the morning, 14 units in sg the evening [Active]; bisoprolol fumarate 5 mg Oral tab 1 tab once daily [Active]; alprazolam 0.25 mg Oral tab 1 tab twice a day [Active]; amiodarone 100 mg Oral tab 1 tab once daily [Active]; lisinopril 5 mg Oral tab 1 tab once daily [Active]; Probiotic Oral daily [Active]; metoprolol tartrate 25 mg Oral tab 1 tab 2 times per day [Active]; Ocuvite 963-18-7-150 mv-rrmc-kr-mg Oral cap daily [Active]; Brovana 15 mcg/2 mL inhalation nebu 2 times per day [Active]; furosemide 20 mg Oral tab 1 tab once daily [Active]; ProAir HFA 90 mcg/actuation inhalation HFAA 2 puffs every 6 hours [Active]; - PMHx: 17:14 Cancer, Lung; CHF; Diabetes - IDDM; High Cholesterol; Hypertension; sg - Immunization history:: Adult Immunizations up to date. - Social history:: Smoking status: Patient/guardian denies using tobacco. - Ebola Screening: : Patient negative for fever greater than or equal to 101.5 degrees Fahrenheit, and additional compatible Ebola Virus Disease symptoms Patient denies exposure to infectious person Patient denies travel to an Ebola-affected area in the 21 days before illness onset No symptoms or risks identified at this time. Screenin:46 Abuse screen: Denies threats or abuse. Denies injuries from another. Nutritional mg2 screening: No deficits noted. Tuberculosis screening: No symptoms or risk factors identified. Fall Risk IV access (20 points). Assessment: 17:47 General: Appears in no apparent distress. comfortable, Behavior is calm, cooperative. mg2 Neuro: Level of Consciousness is awake, alert, obeys commands, Oriented to person, place, time, situation. Cardiovascular: Capillary refill < 3 seconds Patient's skin is warm and dry. Respiratory: Airway is patent Respiratory effort is even, unlabored, Respiratory pattern is regular, symmetrical. GI: Reports nausea, vomiting. : No signs and/or symptoms were reported regarding the genitourinary system. EENT: No signs and/or symptoms were reported regarding the EENT system. Derm: Skin is intact, is healthy with good turgor, Skin is pink, warm \\T\\ dry. normal. Musculoskeletal: Circulation, motion, and sensation intact. Capillary refill < 3 seconds. 18:30 Reassessment: pt reports needing to urinate, pt requests the use of bed frank, pt cleaned sg with appropriate wipes for a clean catch specimen, pt daughter reports " she has a hx of chronic UTI's and has been admitted to facilities such as [facility] where they had to use a cocktail of Antibiotics to treat the UTI." notified an order has been obtained for urine dipstick sample. 19:20 Reassessment: Awaiting on pt daughter for transportation. General: Appears in no ea apparent distress. Behavior is calm, cooperative, appropriate for age. Pain: Denies pain. Neuro: Level of Consciousness is awake, alert, obeys commands, Oriented to person, place, time, situation. Cardiovascular: Patient's skin is warm and dry. Respiratory: Airway is patent Respiratory effort is even, unlabored, Respiratory pattern is regular, symmetrical. Derm: Skin is pink, warm \\T\\ dry. Musculoskeletal: Circulation, motion, and sensation intact. 19:54 Reassessment: Discharge instruction given to patient and daughter, both verbalized the ea understanding of instruction. Pt wheeled out to private vehicle via wheelchair per tech, tolerated well. Vital Signs: 17:08 Pulse 84; Resp 20; Temp 97.6; Pulse Ox 97% on R/A; sg 17:14 BP 138 / 62; sg 19:30 BP 109 / 53; Pulse 79; Resp 19; Temp 97.8; Pulse Ox 100% ; ea ED Course: 17:03 Patient arrived in ED. ss 17:06 Romulo Orellana MD is Attending Physician. kdr 17:08 Jerry Martinez, HIREN is Primary Nurse. sg 17:11 Triage completed. sg 17:12 Arm band placed on. sg 17:46 No provider procedures requiring assistance completed. Inserted saline lock: 20 gauge mg2 in right forearm, using aseptic technique. Blood collected. 17:48 Patient has correct armband on for positive identification. mg2 19:50 IV discontinued, intact, bleeding controlled, No redness/swelling at site. Pressure ea dressing applied. Administered Medications: 18:22 Drug: Reglan 10 mg Route: IVP; Site: right forearm; mg2 19:00 Follow up: Response: No adverse reaction ea 18:22 Drug: NS 0.9% 250 ml Route: IV; Rate: bolus; Site: right forearm; mg2 19:00 Follow up: IV Status: Completed infusion; IV Intake: 250ml ea Intake: 19:00 IV: 250ml; Total: 250ml. ea Outcome: 19:18 Discharge ordered by . kdr 19:54 Discharged to home via wheelchair, with family. ea 19:54 Condition: stable 19:54 Discharge instructions given to patient, family, Instructed on discharge instructions, follow up and referral plans. medication usage, Demonstrated understanding of instructions, follow-up care, medications, Prescriptions given X 2. 19:57 Patient left the ED. ea Signatures: Jerry Martinez RN RN Romulo Koch MD MD [facility] Delaney Waller RN RN Cornelia Vail RN RN ea Gardose, Michele RN HIREN mg2
--- NOTE | 2018-08-01 19:19 | EDPHYS ---
Physician Documentation [facility] Name: Jeannie Whitlock Age: 88 yrs Sex: Female : 1930 Arrival Date: 08/01/2018 Time: 17:03 Bed 26 Private MD: ED Physician Romulo Orellana HPI: 08/02 15:08 This 88 yrs old Female presents to ER via EMS with complaints of weakness. kdr 15:12 The patient c/o generalized weakness and fatigue. She had had a few days of n/v/d but kdr that has resolved and she now feels generally weak and gets tired walking to the bathroom. She had been on abx for a UTI but she thought that they had started her n/v/d. She discontinued the abx a few days. Onset: The symptoms/episode began/occurred gradually, 5 day(s) ago. Severity of symptoms: At their worst the symptoms were mild moderate just prior to arrival, in the emergency department the symptoms have improved. The patient has not experienced similar symptoms in the past. The patient has been recently seen by a physician: the patient's primary care provider. Historical: - Allergies: 08/01 17:14 Codeine; sg 17:14 CT Dye; sg 17:14 Demerol; sg 17:14 Ibuprofen; sg 17:14 Iodine; sg 17:14 Meperidine; sg 17:14 metformin; sg 17:14 Morphine; sg 17:14 PENICILLINS; sg 17:14 Afmewpr-Uvl-Tjr Reductase Inhibitor; sg 17:14 Tape; sg - Home Meds: 17:20 Humalog Mix 75-25 100 unit/mL (75-25) Sub-Q susp 36 units in the morning, 14 units in sg the evening [Active]; bisoprolol fumarate 5 mg Oral tab 1 tab once daily [Active]; alprazolam 0.25 mg Oral tab 1 tab twice a day [Active]; amiodarone 100 mg Oral tab 1 tab once daily [Active]; lisinopril 5 mg Oral tab 1 tab once daily [Active]; Probiotic Oral daily [Active]; metoprolol tartrate 25 mg Oral tab 1 tab 2 times per day [Active]; Ocuvite 291-84-0-150 ol-grvs-ka-mg Oral cap daily [Active]; Brovana 15 mcg/2 mL inhalation nebu 2 times per day [Active]; furosemide 20 mg Oral tab 1 tab once daily [Active]; ProAir HFA 90 mcg/actuation inhalation HFAA 2 puffs every 6 hours [Active]; - PMHx: 17:14 Cancer, Lung; CHF; Diabetes - IDDM; High Cholesterol; Hypertension; sg - Immunization history:: Adult Immunizations up to date. - Social history:: Smoking status: Patient/guardian denies using tobacco. - Ebola Screening: : Patient negative for fever greater than or equal to 101.5 degrees Fahrenheit, and additional compatible Ebola Virus Disease symptoms Patient denies exposure to infectious person Patient denies travel to an Ebola-affected area in the 21 days before illness onset No symptoms or risks identified at this time. ROS: 08/02 15:12 Constitutional: Negative for fever, chills, and weight loss, Eyes: Negative for injury, kdr pain, redness, and discharge, ENT: Negative for injury, pain, and discharge, Neck: Negative for injury, pain, and swelling, Cardiovascular: Negative for chest pain, palpitations, and edema, Respiratory: Negative for shortness of breath, cough, wheezing, and pleuritic chest pain, Back: Negative for injury and pain, : Negative for injury, bleeding, discharge, and swelling, MS/Extremity: Negative for injury and deformity, Skin: Negative for injury, rash, and discoloration, Neuro: Negative for headache, weakness, numbness, tingling, and seizure activity. Psych: Negative for depression, anxiety, suicide ideation, homicidal ideation, and hallucinations, Allergy/Immunology: Negative for hives, rash, and allergies, Endocrine: Negative for neck swelling, polydipsia, polyuria, polyphagia, and marked weight changes, Hematologic/Lymphatic: Negative for swollen nodes, abnormal bleeding, and unusual bruising. Abdomen/GI: Positive for nausea, vomiting, and diarrhea, The n/v/d have stopped for the last few days. Exam: 15:12 Constitutional: This is a well developed, well nourished patient who is awake, alert, kdr and in no acute distress. Head/Face: Normocephalic, atraumatic. Eyes: Pupils equal round and reactive to light, extra-ocular motions intact. Lids and lashes normal. Conjunctiva and sclera are non-icteric and not injected. Cornea within normal limits. Periorbital areas with no swelling, redness, or edema. Neck: Trachea midline, no thyromegaly or masses palpated, and no cervical lymphadenopathy. Supple, full range of motion without nuchal rigidity, or vertebral point tenderness. No Meningismus. Chest/axilla: Normal chest wall appearance and motion. Nontender with no deformity. No lesions are appreciated. Cardiovascular: Regular rate and rhythm with a normal S1 and S2. No gallops, murmurs, or rubs. Normal PMI, no JVD. No pulse deficits. Respiratory: Lungs have equal breath sounds bilaterally, clear to auscultation and percussion. No rales, rhonchi or wheezes noted. No increased work of breathing, no retractions or nasal flaring. Abdomen/GI: Soft, non-tender, with normal bowel sounds. No distension or tympany. No guarding or rebound. No evidence of tenderness throughout. Back: No spinal tenderness. No costovertebral tenderness. Full range of motion. Skin: Warm, dry with normal turgor. Normal color with no rashes, no lesions, and no evidence of cellulitis. MS/ Extremity: Pulses equal, no cyanosis. Neurovascular intact. Full, normal range of motion. Neuro: Awake and alert, GCS 15, oriented to person, place, time, and situation. Cranial nerves II-XII grossly intact. Motor strength 5/5 in all extremities. Sensory grossly intact. Cerebellar exam normal. Normal gait. Psych: Awake, alert, with orientation to person, place and time. Behavior, mood, and affect are within normal limits. Vital Signs: 08/01 17:08 Pulse 84; Resp 20; Temp 97.6; Pulse Ox 97% on R/A; sg 17:14 BP 138 / 62; sg 19:30 BP 109 / 53; Pulse 79; Resp 19; Temp 97.8; Pulse Ox 100% ; ea MDM: 19:18 Patient medically screened. kdr 08/02 15:12 Data reviewed: vital signs, nurses notes, lab test result(s), radiologic studies. kdr Counseling: I had a detailed discussion with the patient and/or guardian regarding: the historical points, exam findings, and any diagnostic results supporting the discharge/admit diagnosis, lab results, radiology results, the need for outpatient follow up. Special discussion: I discussed with the patient/guardian in detail that at this point there is no indication for admission to the hospital. It is understood, however, that if the symptoms persist or worsen the patient needs to return immediately for re-evaluation. 08/01 17:33 Order name: Basic Metabolic Panel; Complete Time: 18:54 kdr 08/01 17:33 Order name: CBC with Diff; Complete Time: 18:54 [facility] 08/01 17:33 Order name: Creatinine for Radiology; Complete Time: 18:54 [facility] 08/01 17:33 Order name: Hepatic Function; Complete Time: 18:54 [facility] 08/01 17:33 Order name: Lipase; Complete Time: 18:54 [facility] 08/01 18:51 Order name: Urine Dipstick--Ancillary (enter results); Complete Time: 15:09 08/01 17:33 Order name: IV Saline Lock; Complete Time: 17:46 [facility] 08/01 17:33 Order name: Labs collected and sent; Complete Time: 17:46 [facility] 08/01 18:09 Order name: PO challenge; Complete Time: 19:56 [facility] 08/01 18:41 Order name: Urine Dipstick-Ancillary (obtain specimen); Complete Time: 18:41 sg Administered Medications: 08/01 18:22 Drug: Reglan 10 mg Route: IVP; Site: right forearm; mg2 19:00 Follow up: Response: No adverse reaction 18:22 Drug: NS 0.9% 250 ml Route: IV; Rate: bolus; Site: right forearm; mg2 19:00 Follow up: IV Status: Completed infusion; IV Intake: 250ml ea Disposition: 08/01/18 19:18 Discharged to Home. Impression: Nausea and vomiting, Weakness. - Condition is Stable. - Discharge Instructions: Weakness, Blip-ju-Scra. - Prescriptions for Pepcid 20 mg Oral Tablet - take 1 tablet by ORAL route every 12 hours for 10 days; 20 tablet. Reglan 10 mg Oral Tablet - take 1 tablet by ORAL route every 6 hours take 30 minutes before meals and at bedtime; 20 tablet. - Medication Reconciliation Form, Thank You Letter form. - Follow up: Private Physician; When: 2 - 3 days; Reason: If symptoms return, Further diagnostic work-up, Recheck today's complaints, Continuance of care, Re-evaluation by your physician. - Problem is an ongoing problem. - Symptoms have improved. Signatures: Dispatcher [employer] EDJerry Chaudhry, RN RN Romulo Koch MD MD kdr Antunez, Elena, RN RN ea Gardose, Michele, HIREN RN mg2 Corrections: (The following items were deleted from the chart) 19:57 19:18 08/01/2018 19:18 Discharged to Home. Impression: Nausea and vomiting; Weakness. ea Condition is Stable. Forms are Medication Reconciliation Form, Thank You Letter, Antibiotic Education, Prescription Opioid Use. Follow up: Private Physician; When: 2 - 3 days; Reason: If symptoms return, Further diagnostic work-up, Recheck today's complaints, Continuance of care, Re-evaluation by your physician. Problem is an ongoing problem. Symptoms have improved. kdr
[2018-08-01 21:03] VITALS: BP 109/53; TEMP 97.8; O2SAT 100
== END 2018-08-01 19:57 | disposition home or self-care (01) ==
LOC: ER 17:00
DX: R53.1 Weakness (principal); R11.2 Nausea with vomiting, unspecified; E11.9 Type 2 diabetes mellitus without complications; E78.00 Pure hypercholesterolemia, unspecified; I10 Essential (primary) hypertension; C80.1 Malignant (primary) neoplasm, unspecified; Z79.4 Long term (current) use of insulin
CPT/HCPCS: 96365; 85025; 80048; 36415; 80076; 81003; 83690; 96375; 99284; J2765

== ENCOUNTER 2018-09-09 08:06 | Emergency (ER) | payer OTHER, MEDICARE ==
--- OUTSIDE RECORDS SUMMARY | 2018-09-09 08:09 | XMS REPORT ---
:1930 Author Organization [facility] Address [address] [place] [address] Care Team Providers Name Role Phone Unavailable Unavailable Unavailable Payers Payer Name Policy Type Policy Number Effective Date Expiration Date Problems This patient has no known problems. Allergies, Adverse Reactions, Alerts Allergy Name Allergy Status Severity Reaction(s) Onset Inactive Treating Comments Type Date Date Clinician iodine DA Active MO 08 00:00: 00 ciprofloxacin DA Active U 3- 00:00: 00 Zgfyjzo-Nae-Qor DA Active U Reductase 3- Inhibitor 00:00: [...] (test code=GLUBED) 165 MG/DL 60-99 GLUCOSE BEDSIDE [id number] 08:35:00 Test Item Value Reference Range Comments GLUCOSE BEDSIDE TESTING (test code=GLUBED) 106 MG/DL 60-99 GLUCOSE BEDSIDE [id number] 21:27:00 Test Item Value Reference Range Comments GLUCOSE BEDSIDE TESTING (test code=GLUBED) 120 MG/DL 60-99 GLUCOSE BEDSIDE [id number] 16:37:00 Test Item Value Reference Range Comments GLUCOSE BEDSIDE TESTING (test code=GLUBED) 203 MG/DL 60-99 GLUCOSE BEDSIDE [id number] 12:26:00 Test Item Value Reference Range Comments GLUCOSE BEDSIDE TESTING (test code=GLUBED) 96 MG/DL 60-99 GLUCOSE BEDSIDE [id number] 07:56:00 Test Item Value Reference Range Comments GLUCOSE BEDSIDE TESTING (test code=GLUBED) 153 MG/DL 60-99 GLUCOSE BEDSIDE [id number] 20:19:00 Test Item Value Reference Range Comments GLUCOSE BEDSIDE TESTING (test code=GLUBED) 229 MG/DL 60-99 GLUCOSE BEDSIDE [id number] 16:49:00 Test Item Value Reference Range Comments GLUCOSE BEDSIDE TESTING (test code=GLUBED) 191 MG/DL 60-99 GLUCOSE BEDSIDE [id number] 12:48:00 Test Item Value Reference Range Comments GLUCOSE BEDSIDE TESTING (test code=GLUBED) 194 MG/DL 60-99 GLUCOSE BEDSIDE [id number] 07:39:00 Test Item Value Reference Range Comments GLUCOSE BEDSIDE TESTING (test code=GLUBED) 200 MG/DL 60-99 GLUCOSE BEDSIDE [id number] 05:51:00 Test Item Value Reference Range Comments GLUCOSE BEDSIDE TESTING (test code=GLUBED) 225 MG/DL 60-99 GLUCOSE BEDSIDE [id number] 23:44:00 Test Item Value Reference Range Comments GLUCOSE BEDSIDE TESTING (test 441 MG/DL 60-99 Call Lab Stat GLu~ code=GLUBED) [id number] 21:43:00 Test Item Value Reference Range Comments GLUCOSE (test code=GLU) 392 MG/DL 74-106 CALLED TO MAINE Castrejon& READGIOVANNY ON 04/21/18 AT 2143 BY Annie Blackmon GLUCOSE BEDSIDE [id number] 17:57:00 Test Item Value Reference Range Comments GLUCOSE BEDSIDE TESTING (test code=GLUBED) 257 MG/DL 60-99 - XR CHEST [id number] 17:15:00 Patient Name: SUSANA YAO Unit No: [id number] EXAMS: CPT CODE: [id number] XR CHEST 1V 47066 Location: T18 CHEST X-RAY: Portable AP frontal [...] Sofi Haider (RT) (AART) Transcrpt Date/Tm/Trnsp: 04/21/2018 (7374) t.[email or web address] Orig Print D/T: S: 04/21/2018 (4017) [facility] NAME: SUSANA YAO [address] [address] PHYS: [place] [address] : 1930 AGE: 88 SEX: F LOC: [id number].352 A PHONE #: [phone] EXAM DATE: 04/21/2018 STATUS: ADM IN FAX #: [phone] RADIOLOGY NO: PAGE 1 Signed ReportGLUCOSE BEDSIDE [id number] 16:57:00 Test Item Value Reference Range Comments GLUCOSE BEDSIDE TESTING (test code=GLUBED) 147 MG/DL 60-99 PROTHROMBIN [id number] 11:24:00 Test Item Value Reference Range Comments [...] systemic embolism. 3.0 - 4.5 Comments to Fashion Consultant: PLEASE DRAW ASAPPTT [id number] 11:24:00 Test Item Value Reference Range Comments PTT ACTIVATED (test code=APTT) 24.2 SECONDS 22.0-33.0 Comments to Fashion Consultant: PLEASE DRAW ASAPGLUCOSE BEDSIDE [id number] 08: 03:00 Test Item Value Reference Range Comments GLUCOSE BEDSIDE TESTING (test code=GLUBED) 129 MG/DL 60-99 GLUCOSE BEDSIDE [id number] 21:47:00 Test Item Value Reference Range Comments GLUCOSE BEDSIDE TESTING (test code=GLUBED) 199 MG/DL 60-99 GLUCOSE BEDSIDE [id number] 16:15:00 Test Item Value Reference Range Comments GLUCOSE BEDSIDE TESTING (test code=GLUBED) 91 MG/DL 60-99 GLUCOSE BEDSIDE [id number] 12:34:00 Test Item Value Reference Range Comments GLUCOSE BEDSIDE TESTING (test code=GLUBED) 109 MG/DL 60-99 BASIC METABOLIC [id number] 11:32:00 Test Item Value Reference Range Comments [...] HIGH.........130-159 mg/dL HIGH.........160-189 mg/dL VERY HIGH.........>/=190 mg/dL [id number] 11:32:00 Test Item Value Reference Range Comments TROPONIN-I (test 0.572 NG/ML 0.012-0.033 CALLED TO RAY& READBACK ON code=TROPI) 04/20/18 AT 1132 BY Alberto Betancur BASIC METABOLIC [id number] 11:14:00 Test Item Value Reference Range Comments [...] code=HDL) LIPOPROTEIN LDL (test MG/DL 0-99 code=LDL) [id number] 11:14:00 Test Item Value Reference Range Comments TROPONIN-I (test code=TROPI) NG/ML 0.0-0.045 GLYCOSYLATED HEMOGLOBIN [id number] 11:11:00 Test Item Value Reference Range Comments [...] (test 151 MG/DL 70-110 code=MBG) CBC W/AUTO [id number] 10:48:00 Test Item Value Reference Range Comments [...] (test code=NRBC#) 0.00 K/mm3 0.0-0.1 GLUCOSE BEDSIDE [id number] 08:27:00 Test Item Value Reference Range Comments GLUCOSE BEDSIDE TESTING (test code=GLUBED) 112 MG/DL 60-99 GLUCOSE BEDSIDE [id number] 06:18:00 Test Item Value Reference Range Comments GLUCOSE BEDSIDE TESTING (test code=GLUBED) 92 MG/DL 60-99 [id number] 02:10:00 Test Item Value Reference Range Comments TROPONIN-I (test 0.679 NG/ML 0.012-0.033 CALLED TO [facility] & code=TROPI) READBACK ON 04/20/18 AT 0209 BY Sejal Monson GLUCOSE BEDSIDE [id number] 23:12:00 Test Item Value Reference Range Comments GLUCOSE BEDSIDE TESTING (test code=GLUBED) 196 MG/DL 60-99 BASIC METABOLIC [id number] 21:51:00 Test Item Value Reference Range Comments [...] (test code=CA) 9.5 MG/DL 8.4-10.2 CBC W/AUTO [id number] 21:32:00 Test Item Value Reference Range Comments [...] (test code=NRBC#) 0.00 K/mm3 0.0-0.1 LIPOPROTEIN LDL [id number] 19:21:00 Test Item Value Reference Range Comments LIPOPROTEIN LDL DIRECT (test 126 mg/dL 100-129 code=LDLDIR) ===Reference Interval: mg/dL mmol/L ---------Optimal <100 <2.6Near/above optimal 100-129 2.6-3.3Borderline High 130-159 3.4-4.1High 160-189 4.1-4.9Very High >=190 >=4.9=========This LDL result is a direct measurement.========= [id number] 19:21:00 Test Item Value Reference Range Comments TROPONIN-I (test 0.720 NG/ML 0.012-0.033 CALLED TO KHRIS Oakes & code=TROPI) READBACK ON 04/19/18 AT 1901 Karen Gilbert LIPOPROTEIN LDL [id number] 19:04:00 Test Item Value Reference Range Comments LIPOPROTEIN LDL DIRECT (test code=LDLDIR) mg/dL 100-129 [id number] 19:04:00 Test Item Value Reference Range Comments TROPONIN-I (test 0.720 NG/ML 0.012-0.033 CALLED TO KHRIS Oakes & code=TROPI) READBACK ON 04/19/18 AT 1901 Karen Gilbert GLUCOSE BEDSIDE [id number] 12:58:00 Test Item Value Reference Range Comments GLUCOSE BEDSIDE TESTING (test code=GLUBED) 289 MG/DL 60-99 GLUCOSE BEDSIDE [id number] 08:36:00 Test Item Value Reference Range Comments GLUCOSE BEDSIDE TESTING (test code=GLUBED) 128 MG/DL 60-99 GLUCOSE BEDSIDE [id number] 20:27:00 Test Item Value Reference Range Comments GLUCOSE BEDSIDE TESTING (test code=GLUBED) 214 MG/DL 60-99 GLUCOSE BEDSIDE [id number] 16:59:00 Test Item Value Reference Range Comments GLUCOSE BEDSIDE TESTING (test code=GLUBED) 313 MG/DL 60-99 GLUCOSE BEDSIDE [id number] 12:15:00 Test Item Value Reference Range Comments GLUCOSE BEDSIDE TESTING (test code=GLUBED) 141 MG/DL 60-99 GLUCOSE BEDSIDE [id number] 10:30:00 Test Item Value Reference Range Comments GLUCOSE BEDSIDE TESTING (test code=GLUBED) 139 MG/DL 60-99 GLUCOSE BEDSIDE [id number] 07:52:00 Test Item Value Reference Range Comments GLUCOSE BEDSIDE TESTING (test code=GLUBED) 81 MG/DL 60-99 GLUCOSE BEDSIDE [id number] 18:39:00 Test Item Value Reference Range Comments GLUCOSE BEDSIDE TESTING (test code=GLUBED) 336 MG/DL 60-99 GLUCOSE BEDSIDE [id number] 12:50:00 Test Item Value Reference Range Comments GLUCOSE BEDSIDE TESTING (test code=GLUBED) 127 MG/DL 60-99 GLUCOSE BEDSIDE [id number] 12:49:00 Test Item Value Reference Range Comments GLUCOSE BEDSIDE TESTING (test code=GLUBED) 204 MG/DL 60-99 GLUCOSE BEDSIDE [id number] 20:45:00 Test Item Value Reference Range Comments GLUCOSE BEDSIDE TESTING (test code=GLUBED) 243 MG/DL 60-99 GLUCOSE BEDSIDE [id number] 16:05:00 Test Item Value Reference Range Comments GLUCOSE BEDSIDE TESTING (test code=GLUBED) 192 MG/DL 60-99 GLUCOSE BEDSIDE [id number] 11:02:00 Test Item Value Reference Range Comments GLUCOSE BEDSIDE TESTING (test code=GLUBED) 159 MG/DL 60-99 GLUCOSE BEDSIDE [id number] 07:43:00 Test Item Value Reference Range Comments GLUCOSE BEDSIDE TESTING (test code=GLUBED) 138 MG/DL 60-99 GLUCOSE BEDSIDE [id number] 04:20:00 Test Item Value Reference Range Comments GLUCOSE BEDSIDE TESTING (test code=GLUBED) 227 MG/DL 60-99 GLUCOSE BEDSIDE [id number] 04:20:00 Test Item Value Reference Range Comments GLUCOSE BEDSIDE TESTING (test code=GLUBED) 275 MG/DL 60-99 GLUCOSE BEDSIDE [id number] 20:27:00 Test Item Value Reference Range Comments GLUCOSE BEDSIDE TESTING (test code=GLUBED) 258 MG/DL 60-99 GLUCOSE BEDSIDE [id number] 17:10:00 Test Item Value Reference Range Comments GLUCOSE BEDSIDE TESTING (test code=GLUBED) 283 MG/DL 60-99 GLUCOSE BEDSIDE [id number] 05:52:00 Test Item Value Reference Range Comments GLUCOSE BEDSIDE TESTING (test code=GLUBED) 276 MG/DL 60-99 COMPREHENSIVE METABOLIC [id number] 21:59:00 Test Item Value Reference Range Comments [...] ALKALINE PHOSPHATASE (test 58 UNITS/L 38-126 code=ALKP) [id number] 21:59:00 Test Item Value Reference Range Comments PHOSPHOROUS (test code=PHOS) 2.4 MG/DL 2.5-4.5 [id number] 21:59:00 Test Item Value Reference Range Comments MAGNESIUM (test code=MAG) 2.1 MG/DL 1.6-2.3 CBC W/AUTO [id number] 21:46:00 Test Item Value Reference Range Comments [...] (test code=NRBC#) 0.00 K/mm3 0.0-0.1 GLUCOSE BEDSIDE [id number] 21:36:00 Test Item Value Reference Range Comments GLUCOSE BEDSIDE TESTING (test code=GLUBED) 268 MG/DL 60-99 GLUCOSE BEDSIDE [id number] 21:36:00 Test Item Value Reference Range Comments GLUCOSE BEDSIDE TESTING (test code=GLUBED) 223 MG/DL 60-99 GLUCOSE BEDSIDE [id number] 21:36:00 Test Item Value Reference Range Comments GLUCOSE BEDSIDE TESTING (test code=GLUBED) 147 MG/DL 60-99 GLUCOSE BEDSIDE [id number] 21:36:00 Test Item Value Reference Range Comments GLUCOSE BEDSIDE TESTING (test code=GLUBED) 194 MG/DL 60-99 - XR CHEST [id number] 20:15:00 Patient Name: SUSANA YAO Unit No: [id number] EXAMS: CPT CODE: [id number] XR CHEST 1V 37418 AP VIEW OF THE CHEST LOCATION: B2 [...] 04/14/2018 (2017) CATALINA Amarjit NAME: BUD [id number] PHYS: [place] [address] : 1930 AGE: 88 SEX: F LOC: [id number].SI11 A PHONE #: [phone] EXAM DATE: 04/14/2018 STATUS: ADM IN FAX #: [phone] RADIOLOGY NO: PAGE 1 Signed ReportGLUCOSE BEDSIDE [id number] 06:58:00 Test Item Value Reference Range Comments GLUCOSE BEDSIDE TESTING (test code=GLUBED) 230 MG/DL 60-99
[2018-09-09] MEDS ORDERED: ONDANSETRON 4 MG/2 ML VIAL ONE ×2 (08:39→09:36)
[2018-09-09] MEDS ORDERED: NA CHLORIDE 0.9% 1,000 ML ONE (08:40)
[2018-09-09 09:05] LABS: Protime INR 1.01
[2018-09-09 09:07] LABS: Absolute Lymphocytes (CBC) 3.2 K/uL (0.7-4.9); Basophils % 0.7 % (0-1.3); Hematocrit 37.9 % (36.0-45.0); Lymphocytes % 38.2 % (15.3-44.8); MPV 7.7 fL (7.6-11.3); RBC Red Blood Cell Count 4.13 M/uL (3.86-4.86)
[2018-09-09] MEDS ORDERED: FAMOTIDINE 20 MG/2 ML VIAL IV ONE (09:11)
[2018-09-09 09:19] LABS: ALT/SGPT 26 U/L (12-78); AST/SGOT 21 U/L (15-37); Albumin 3.6 g/dL (3.4-5.0); Alkaline Phosphatase 56 U/L (45-117); BUN Blood Urea Nitrogen 24 mg/dL (7-18); Bicarbonate 28 mmol/L (21-32); Bilirubin Direct 0.1 mg/dL (0-0.2); Bilirubin Total 0.4 mg/dL (0.2-1.0); Glucose Level 169 mg/dL (74-106); Lipase 184 U/L (73-393); Magnesium 2.2 mg/dL (1.8-2.4); NT PRO-BNP 1399 pg/mL (<450); Potassium 4.9 mmol/L (3.5-5.1); Protein, Total 7.2 g/dL (6.4-8.2); Sodium Level 137 mmol/L (136-145); Troponin (Emerg Dept Use Only) < 0.02 ng/mL (0.0-0.045)
[2018-09-09] MEDS ORDERED: PROMETHAZINE 25 MG/ML VIAL ONE (09:36)
--- NOTE | 2018-09-09 10:51 | RAD REPORT ---
EXAM DESCRIPTION: CT - Abdomen Pelvis Wo Contrast - 09/09/2018 10:10 am CLINICAL HISTORY: Abdominal pain COMPARISON: September 2017 TECHNIQUE: Computed axial tomography of the abdomen and pelvis was obtained. IV and oral contrast we re not requested. All CT scans are performed using dose optimization technique as appropriate and may include automated exposure control or mA/KV adjustment according to patient size. FINDINGS: The evaluation of solid organs, vessels and bowel is limited secondary to the lack of con trast administration. An aorto iliac graft is in place. Patient's known abdominal aortic aneurysm has enlarged currently me asuring 9.5 x 8.4 centimeters ( AP by trans). Previously it measured 8.3 x 7.8 centimeters. A retrope ritoneal hematoma is not present. Liver, spleen, pancreas, adrenals and kidneys demonstrate no significant abnormality. Diverticula stem from the colon without diverticulitis. IMPRESSION: 9.5 x 8.4 centimeter abdominal aortic aneurysm has enlarged since the prior exam. An ao rto bi-iliac endovascular stent is present within the aneurysm. .
--- NOTE | 2018-09-09 11:07 | RAD REPORT ---
EXAM DESCRIPTION: Hector Single View09/09/2018 9:10 am CLINICAL HISTORY: Abdominal pain COMPARISON: June 2018 FINDINGS: The lungs appear clear of acute infiltrate. The heart is normal size. Postsurgical changes involve the chest. Pacemaker leads are in place IMPRESSION: No acute abnormalities displayed
--- NOTE | 2018-09-09 11:33 | EDPHYS ---
Physician Documentation [facility] Name: Jeannie Whitlock Age: 88 yrs Sex: Female : 1930 Arrival Date: 09/09/2018 Time: 08:11 Bed 20 Private MD: ED Physician Rick Munguia HPI: 09/09 08:26 This 88 yrs old Female presents to ER via EMS with complaints of Abdominal nora Pain, Nausea/Vomiting. 08:26 The patient presents to the emergency department with nausea, vomiting, abdominal pain, nora of the right upper quadrant. Onset: The symptoms/episode began/occurred 3 day(s) ago. Possible causes: unknown. The symptoms are aggravated by nothing. Associated signs and symptoms: Pertinent positives: abdominal pain, nausea, vomiting. Severity of symptoms: At their worst the symptoms were mild moderate in the emergency department the symptoms are unchanged. The patient has not experienced similar symptoms in the past. Historical: - Allergies: 08:17 Codeine; em 08:17 CT Dye; em 08:17 Demerol; em 08:17 Ibuprofen; em 08:17 Iodine; em 08:17 Meperidine; em 08:17 metformin; em 08:17 Morphine; em 08:17 PENICILLINS; em 08:17 Vbvigkm-Ggn-Fkx Reductase Inhibitor; em 08:17 Tape; em - Home Meds: 08:17 alprazolam 0.25 mg Oral tab 1 tab twice a day [Active]; amiodarone 100 mg Oral tab 1 em tab once daily [Active]; amlodipine 2.5 mg tab 1 tab once daily [Active]; Bactrim DS 800-160 mg Oral tab 1 tab every 12 hours [Active]; bisoprolol fumarate 5 mg Oral tab 1 tab once daily [Active]; Brovana 15 mcg/2 mL inhalation nebu 2 times per day [Active]; CoQ-10 100 mg Oral cap nightly [Active]; cranberry 200 mg daily Oral [Active]; fenofibrate 150 mg Oral cap 1 cap once daily [Active]; furosemide 20 mg Oral tab 1 tab once daily [Active]; lisinopril 5 mg Oral tab 1 tab once daily [Active]; metoprolol tartrate 25 mg Oral tab 1 tab 2 times per day [Active]; ipratropium bromide 0.02 % inhalation soln 1.25 mL 4 times per day [Active]; Humalog Mix 75-25 100 unit/mL (75-25) Sub-Q susp 36 units in the morning, 14 units in the evening [Active]; theophylline 200 mg Oral Tb12 1 tab daily [Active]; Nasacort 55 mcg Nasal spra 2 spray daily [Active]; - PMHx: 08:17 Cancer, Lung; Diabetes - IDDM; High Cholesterol; CHF; Hypertension; em - Immunization history:: Adult Immunizations up to date. - Social history:: Smoking status: unknown. - Ebola Screening: : Patient negative for fever greater than or equal to 101.5 degrees Fahrenheit, and additional compatible Ebola Virus Disease symptoms Patient denies exposure to infectious person Patient denies travel to an Ebola-affected area in the 21 days before illness onset No symptoms or risks identified at this time. - Family history:: not pertinent. ROS: 08:26 Constitutional: Negative for fever, chills, and weight loss, Eyes: Negative for injury, nora pain, redness, and discharge, ENT: Negative for injury, pain, and discharge, Neck: Negative for injury, pain, and swelling, Cardiovascular: Negative for chest pain, palpitations, and edema, Respiratory: Negative for shortness of breath, cough, wheezing, and pleuritic chest pain, Back: Negative for injury and pain, : Negative for injury, bleeding, discharge, and swelling, MS/Extremity: Negative for injury and deformity, Skin: Negative for injury, rash, and discoloration, Neuro: Negative for headache, weakness, numbness, tingling, and seizure, Psych: Negative for depression, anxiety, suicide ideation, homicidal ideation, and hallucinations, Allergy/Immunology: Negative for hives, rash, and allergies, Endocrine: Negative for neck swelling, polydipsia, polyuria, polyphagia, and marked weight changes, Hematologic/Lymphatic: Negative for swollen nodes, abnormal bleeding, and unusual bruising. 08:26 Abdomen/GI: Positive for abdominal pain, nausea and vomiting, of the right upper quadrant and right lower quadrant. Exam: 08:26 Constitutional: This is a well developed, well nourished patient who is awake, alert, nora and in no acute distress. Head/Face: Normocephalic, atraumatic. Eyes: Pupils equal round and reactive to light, extra-ocular motions intact. Lids and lashes normal. Conjunctiva and sclera are non-icteric and not injected. Cornea within normal limits. Periorbital areas with no swelling, redness, or edema. ENT: Nares patent. No nasal discharge, no septal abnormalities noted. Tympanic membranes are normal and external auditory canals are clear. Oropharynx with no redness, swelling, or masses, exudates, or evidence of obstruction, uvula midline. Mucous membranes moist. Neck: Trachea midline, no thyromegaly or masses palpated, and no cervical lymphadenopathy. Supple, full range of motion without nuchal rigidity, or vertebral point tenderness. No Meningismus. Chest/axilla: Normal chest wall appearance and motion. Nontender with no deformity. No lesions are appreciated. Cardiovascular: Regular rate and rhythm with a normal S1 and S2. No gallops, murmurs, or rubs. Normal PMI, no JVD. No pulse deficits. Respiratory: Lungs have equal breath sounds bilaterally, clear to auscultation and percussion. No rales, rhonchi or wheezes noted. No increased work of breathing, no retractions or nasal flaring. Back: No spinal tenderness. No costovertebral tenderness. Full range of motion. Female : Normal external genitalia. Skin: Warm, dry with normal turgor. Normal color with no rashes, no lesions, and no evidence of cellulitis. MS/ Extremity: Pulses equal, no cyanosis. Neurovascular intact. Full, normal range of motion. Neuro: Awake and alert, GCS 15, oriented to person, place, time, and situation. Cranial nerves II-XII grossly intact. Motor strength 5/5 in all extremities. Sensory grossly intact. Cerebellar exam normal. Normal gait. Psych: Awake, alert, with orientation to person, place and time. Behavior, mood, and affect are within normal limits. 08:26 Abdomen/GI: Inspection: abdomen appears normal, Bowel sounds: normal, Palpation: mild nora abdominal tenderness, moderate abdominal tenderness, in the right upper quadrant and right lower quadrant, Liver: no appreciated palpable abnormalities. Vital Signs: 08:17 BP 157 / 98; Pulse 98; Resp 28; Temp 98.2(O); Pulse Ox 96% on 3 lpm NC; em 09:27 BP 119 / 51; Pulse 87; Resp 24; Pulse Ox 100% on 3 lpm NC; em 10:55 BP 112 / 55; Pulse 79; Resp 22; Pulse Ox 99% on 3 lpm NC; em 12:00 BP 118 / 60; Pulse 73; Resp 20; Pulse Ox 98% on 3 lpm NC; em 14:02 BP 119 / 61; Pulse 76; Resp 24; Pulse Ox 100% on 3 lpm NC; em MDM: 08:11 Patient medically screened. [facility] 08:29 Data reviewed: vital signs, nurses notes, lab test result(s), EKG, radiologic studies, [facility] CT scan, plain films. 09/09 08:25 Order name: Basic Metabolic Panel; Complete Time: 10:02 [facility] 09/09 08:25 Order name: CBC with Diff; Complete Time: 09:15 [facility] 09/09 08:25 Order name: LFT's; Complete Time: 10:02 [facility] 09/09 08:25 Order name: Magnesium; Complete Time: 10:02 [facility] 09/09 08:25 Order name: NT PRO-BNP; Complete Time: 10:02 [facility] 09/09 08:25 Order name: PT-INR; Complete Time: 09:15 [facility] 09/09 08:25 Order name: Troponin (emerg Dept Use Only); Complete Time: 10:02 [facility] 09/09 08:25 Order name: XRAY Chest (1 view); Complete Time: 11:23 [facility] 09/09 08:25 Order name: Lipase; Complete Time: 10:02 [facility] 09/09 08:58 Order name: Abdomen ; Complete Time: 11:23 EDMS 09/09 08:25 Order name: EKG; Complete Time: 08:28 [facility] 09/09 08:25 Order name: Cardiac monitoring; Complete Time: 08:45 [facility] 09/09 08:25 Order name: EKG - Nurse/Tech; Complete Time: 08:45 [facility] 09/09 08:25 Order name: IV Saline Lock; Complete Time: 08:45 [facility] 09/09 08:25 Order name: Labs collected and sent; Complete Time: 08:45 [facility] 09/09 08:25 Order name: O2 Per Protocol; Complete Time: 08:45 [facility] 09/09 08:25 Order name: O2 Sat Monitoring; Complete Time: 08:45 [facility] Administered Medications: 08:47 Drug: Zofran 4 mg Route: IVP; Site: left antecubital; aa5 09:20 Follow up: Response: No adverse reaction; Nausea unchanged em 09:06 Drug: Pepcid 20 mg Route: IVP; Site: right wrist; aa5 09:26 Follow up: Response: No adverse reaction em 09:06 Drug: NS 0.9% 1000 ml Route: IV; Rate: 1 bolus; Site: right wrist; aa5 09:25 Drug: Zofran 4 mg Route: IVP; Site: right wrist; em 10:15 Follow up: Response: No adverse reaction; Nausea unchanged em 10:29 Drug: Phenergan 12.5 mg Route: IVP; Site: right wrist; aa5 11:00 Follow up: Response: No adverse reaction; Nausea is decreased em Disposition: 09/09/18 11:32 Transfer ordered to [facility]. Diagnosis are Abdominal tenderness, Vomiting, Type 1 diabetes mellitus, Aortic aneurysm of unspecified site, without rupture, Unspecified kidney failure. - Reason for transfer: Higher level of care. - Accepting physician is to [facility]. - Condition is Stable. - Problem is new. - Symptoms have improved. Signatures: Dispatcher [employer] [facility] Rick Munguia MD MD cha Munoz, Edgar, HUSKER OPERATOR HUSKER OPERATOR em Cecelia Arndt, RN RN aa5 Corrections: (The following items were deleted from the chart) 08:58 08:28 Abdomen Pelvis W Con+CT.RAD.BRZ ordered. [facility] 14:00 11:32 09/09/2018 11:32 Transfer ordered to [facility]. aa5 Diagnosis is Abdominal tenderness; Vomiting; Type 1 diabetes mellitus; Aortic aneurysm of unspecified site, without rupture; Unspecified kidney failure. Reason for transfer: Higher level of care. Accepting physician is to [facility]. Condition is Stable. Problem is new. Symptoms have improved. nora
--- NOTE | 2018-09-09 11:33 | ER ---
Nurse's Notes [facility] Name: Jeannie Whitlock Age: 88 yrs Sex: Female : 1930 Arrival Date: 09/09/2018 Time: 08:11 Bed 20 Private MD: Diagnosis: Abdominal tenderness;Vomiting;Type 1 diabetes mellitus;Aortic aneurysm of unspecified site, without rupture;Unspecified kidney failure Presentation: 09/09 08:11 Presenting complaint: EMS states: c/o N/V and RUQ pain for several days, denies fever em or diarrhea. Transition of care: patient was not received from another setting of care. Onset of symptoms was September 07, 2018. Risk Assessment: Do you want to hurt yourself or someone else? Patient reports no desire to harm self or others. Initial Sepsis Screen: Does the patient meet any 2 criteria? RR > 20 per min. Yes Does the patient have a suspected source of infection? No. Patient's initial sepsis screen is negative. Care prior to arrival: None. 08:11 Method Of Arrival: EMS: [facility] em 08:22 Acuity: IRENE 3 aa5 Historical: - Allergies: 08:17 Codeine; em 08:17 CT Dye; em 08:17 Demerol; em 08:17 Ibuprofen; em 08:17 Iodine; em 08:17 Meperidine; em 08:17 metformin; em 08:17 Morphine; em 08:17 PENICILLINS; em 08:17 Btbciuu-Isc-Zdk Reductase Inhibitor; em 08:17 Tape; em - Home Meds: 08:17 alprazolam 0.25 mg Oral tab 1 tab twice a day [Active]; amiodarone 100 mg Oral tab 1 em tab once daily [Active]; amlodipine 2.5 mg tab 1 tab once daily [Active]; Bactrim DS 800-160 mg Oral tab 1 tab every 12 hours [Active]; bisoprolol fumarate 5 mg Oral tab 1 tab once daily [Active]; Brovana 15 mcg/2 mL inhalation nebu 2 times per day [Active]; CoQ-10 100 mg Oral cap nightly [Active]; cranberry 200 mg daily Oral [Active]; fenofibrate 150 mg Oral cap 1 cap once daily [Active]; furosemide 20 mg Oral tab 1 tab once daily [Active]; lisinopril 5 mg Oral tab 1 tab once daily [Active]; metoprolol tartrate 25 mg Oral tab 1 tab 2 times per day [Active]; ipratropium bromide 0.02 % inhalation soln 1.25 mL 4 times per day [Active]; Humalog Mix 75-25 100 unit/mL (75-25) Sub-Q susp 36 units in the morning, 14 units in the evening [Active]; theophylline 200 mg Oral Tb12 1 tab daily [Active]; Nasacort 55 mcg Nasal spra 2 spray daily [Active]; - PMHx: 08:17 Cancer, Lung; Diabetes - IDDM; High Cholesterol; CHF; Hypertension; em - Immunization history:: Adult Immunizations up to date. - Social history:: Smoking status: unknown. - Ebola Screening: : Patient negative for fever greater than or equal to 101.5 degrees Fahrenheit, and additional compatible Ebola Virus Disease symptoms Patient denies exposure to infectious person Patient denies travel to an Ebola-affected area in the 21 days before illness onset No symptoms or risks identified at this time. - Family history:: not pertinent. Screenin:17 Abuse screen: Denies threats or abuse. Nutritional screening: Has had N/V for 3 or more em days. Tuberculosis screening: No symptoms or risk factors identified. Fall Risk None identified. Assessment: 08:18 General: Appears in no apparent distress. uncomfortable, Behavior is calm, cooperative, em Denies fever. Pain: Complains of pain in right upper quadrant. Neuro: Level of Consciousness is awake, alert, obeys commands, Oriented to person, place, time, situation. Cardiovascular: Capillary refill < 3 seconds Patient's skin is warm and dry. Pulses are all present. Edema is absent. Rhythm is sinus rhythm. Respiratory: Reports shortness of breath reports normal for patient Airway is patent Respiratory effort is even, Respiratory pattern is symmetrical, tachypnea Breath sounds are clear bilaterally. Denies cough. GI: Abdomen is flat, Bowel sounds present X 4 quads. Abd is soft X 4 quads Abdomen is tender to palpation in right upper quadrant and right lower quadrant Reports intolerance of fluids, intolerance of food, nausea, vomiting, since 1 week Patient currently denies diarrhea. : Reports currently being treated for UTI. Derm: Skin is intact, Skin is pink, warm \T\ dry. Musculoskeletal: Capillary refill < 3 seconds, Range of motion: intact in all extremities. 08:18 Reassessment: I agree with assessment completed by Benedicto Villanueva LVN . aa5 09:14 Reassessment: Patient appears in no apparent distress at this time. Patient and/or em family updated on plan of care and expected duration. Pain level reassessed. reports nausea is unchanged, provider notified, new medication orders received. 10:54 Reassessment: Patient appears in no apparent distress at this time. Patient and/or em family updated on plan of care and expected duration. Pain level reassessed. Patient states feeling better. Patient states symptoms have improved. 12:00 Reassessment: Patient appears in no apparent distress at this time. Patient and/or em family updated on plan of care and expected duration. Pain level reassessed. family at bedside, resting comfortably with eyes closed, RR 24, SPO2 98%, skin pink warm and dry. 13:10 Reassessment: report given to HIREN Johnson at [place] [facility]. em 13:50 Reassessment: Patient appears in no apparent distress at this time. reports feeling em better, nausea has decreased. Reassessment: Patient appears in no apparent distress at this time. report given to EMS. Vital Signs: 08:17 BP 157 / 98; Pulse 98; Resp 28; Temp 98.2(O); Pulse Ox 96% on 3 lpm NC; em 09:27 BP 119 / 51; Pulse 87; Resp 24; Pulse Ox 100% on 3 lpm NC; em 10:55 BP 112 / 55; Pulse 79; Resp 22; Pulse Ox 99% on 3 lpm NC; em 12:00 BP 118 / 60; Pulse 73; Resp 20; Pulse Ox 98% on 3 lpm NC; em 14:02 BP 119 / 61; Pulse 76; Resp 24; Pulse Ox 100% on 3 lpm NC; em ED Course: 08:11 Patient arrived in ED. em 08:11 Rick Munguia MD is Attending Physician. nora 08:17 Arm band placed on. em 08:17 Patient has correct armband on for positive identification. Placed in gown. Bed in low em position. Call light in reach. Side rails up X2. Adult w/ patient. monitoring engineer on. Pulse ox on. NIBP on. 08:22 Triage completed. aa5 08:27 Benedicto Villanueva LVN is Primary Nurse. em 08:40 Radiology exam delayed due to pt needs meds before drinking oral contrast. mw3 08:40 Initial lab(s) drawn, by me, sent to lab. Inserted saline lock: 22 gauge in left em antecubital area, using aseptic technique. Blood collected. 09:00 Missed attempt(s): 22 gauge in right forearm. Bleeding controlled, band aid applied, aa5 catheter tip intact. 09:03 Missed attempt(s): 24 gauge in right forearm. Bleeding controlled, band aid applied, aa5 catheter tip intact. 09:06 Inserted saline lock: 24 gauge in right wrist, using aseptic technique. aa5 09:12 XRAY Chest (1 view) In Process Unspecified. EDMS 10:10 CT completed. Patient moved back from CT. mw3 10:12 Abdomen In Process Unspecified. EDMS 12:20 \T\[address] Munguia with Elsa Chaudhari from the [facility] Transfer Cener/ \T\1155 connected the cardiothoracic surgeon Dr. Fleming with Dr. Munguia for patient transfer consultation. \T\1200 administrative approval given by Elsa/ patient has been accepted to [facility] CCU- Dr. Doss has accepted the patient in transfer/ report to be called to [phone]. 14:02 No provider procedures requiring assistance completed. Patient admitted, IV remains in em place. 14:02 IV discontinued, intact, bleeding controlled, No redness/swelling at site. Pressure em dressing applied, from left AC prior to transfer. Administered Medications: 08:47 Drug: Zofran 4 mg Route: IVP; Site: left antecubital; aa5 09:20 Follow up: Response: No adverse reaction; Nausea unchanged em 09:06 Drug: Pepcid 20 mg Route: IVP; Site: right wrist; aa5 09:26 Follow up: Response: No adverse reaction em 09:06 Drug: NS 0.9% 1000 ml Route: IV; Rate: 1 bolus; Site: right wrist; aa5 09:25 Drug: Zofran 4 mg Route: IVP; Site: right wrist; em 10:15 Follow up: Response: No adverse reaction; Nausea unchanged em 10:29 Drug: Phenergan 12.5 mg Route: IVP; Site: right wrist; aa5 11:00 Follow up: Response: No adverse reaction; Nausea is decreased em Outcome: 11:32 ER care complete, transfer ordered by . [facility] 14: Patient left the ED. aa5 14:07 Transferred to [facility], Transfer form completed. X-rays sent w/ patient. em 14:07 Condition: good 14:07 Instructed on the need for transfer, Demonstrated understanding of instructions. Signatures: Dispatcher [employer] Rick De La Vega MD MD cha Munoz, Edgar, TREATMENT SUPERVISOR TREATMENT SUPERVISOR em Cecelia Arndt, RN RN aa5 Yamini Pope Michelle mw3 Corrections: (The following items were deleted from the chart) 10:55 10:55 BP 112 / 45; Pulse 79bpm; Resp 22bpm; Pulse Ox 99% 2 lpm Nasal Cannula; em em 11:30 08:18 Derm: Skin is intact, is healthy with good turgor, Skin is pink, warm \T\ dry. em aa 11:37 10:55 BP 112 / 55; Pulse 79bpm; Resp 22bpm; Pulse Ox 99% 2 lpm Nasal Cannula; em em 14:12 08:18 Cardiovascular: Capillary refill < 3 seconds Patient's skin is warm and dry. em em
[2018-09-09 14:16] VITALS: TEMP 98.2
[2018-09-09 14:19] VITALS: BP 112/55; O2SAT 99
--- NOTE | 2018-09-10 06:30 | EKG ---
Test Date: 2018-09-09 Test Time: 09:12:59 Student Life Advisor: BI MEASUREMENT RESULTS: Intervals: Rate: 87 WI: 124 QRSD: 126 QT: 442 QTc: 531 [place]: P: 50 WI: 124 QRS: -16 T: 89 INTERPRETIVE STATEMENTS: Atrial-sensed ventricular-paced rhythm Abnormal ECG Compared to ECG 06/27/2018 08:03:10 Sinus rhythm no longer present Myocardial infarct finding no longer present Electronically Signed On 09-10-18 06:29:10 CDT by Franklin Nascimento
== END 2018-09-09 14:00 | disposition short-term general hospital (02) ==
LOC: ER 08:06
DX: I71.9 Aortic aneurysm of unspecified site, without rupture (principal); R11.10 Vomiting, unspecified; E10.22 Type 1 diabetes mellitus with diabetic chronic kidney disease; N18.9 Chronic kidney disease, unspecified; I12.9 Hypertensive chronic kidney disease with stage 1 through stage 4 chronic kidney disease, or unspecified chronic kidney disease; I50.9 Heart failure, unspecified; Z79.4 Long term (current) use of insulin; Z88.0 Allergy status to penicillin; Z88.5 Allergy status to narcotic agent; Z88.6 Allergy status to analgesic agent; Z88.8 Allergy status to other drugs, medicaments and biological substances; Z85.118 Personal history of other malignant neoplasm of bronchus and lung
CPT/HCPCS: 93005; 85025; 80048; 36415; 83735; 85610; 80076; 84484; 83690; 83880; 74176; 71045; 99285; J2550; J7030; J2405 ×2; 96374; 96375

== ENCOUNTER 2018-09-20 10:15 | Inpatient (IN) | payer OTHER, MEDICARE ==
--- NOTE | 2018-09-20 11:47 | R.PREADM ---
SCREENING DATE AND TIME 09/20/2018 10:19 (CDT) ANTICIPATED REHAB ADMISSION DATE 09/22/2018 REFERRING FACILITY [facility] REFERRAL DATE AND TIME 09/20/2018 10:19 (CDT) ACUTE ADMIT DATE 09/09/2018 Previous Rehabilitation(s): No. REFERRING PHYSICIAN Ozzie Fleming REHAB FACILITY [facility] PHYSICIAN REVIEWER Dr. Cristy Toussaint MR# [id number] NAME JEANNIE WHITLOCK ADDRESS [address] [place] [address] PHONE [facility] [id number] DATE OF 1930 AGE 88 SSN# [id number] GENDER female MARITAL STATUS RACE white ADMIT FROM 02 - [facility] PRE-HOSPITAL LIVING SETTING 01 - Home (private home/apt. board/care, assisted living, shelter, transitional living) HOME TYPE AND DETAILS Type of home: single family house # of steps to enter the residence: 0 # of steps within the residence: 0 # of levels in the residence: 1 PRE-HOSPITAL LIVING WITH Family/Relatives FAMILY SUPPORT Yes PRIMARY FAMILY CONTACT NAME Tasneem Schultz PRIMARY FAMILY CONTACT PHONE PHONE PRIMARY FAMILY CONTACT ON ADM.? no IS PRIMARY FAMILY CONTACT AUTH. REP.? no 1ST EMERGENCY CONTACT Tasneem Schultz 1ST CONTACT PHONE PHONE 1ST CONTACT ON ADM. no IS 1ST CONTACT AUTH. REP.? no PHONE 2ND CONTACT ON ADM.? no PATIENT EMPLOYMENT STATUS Retired (for age) PATIENT EMPLOYER No Employer PAYOR INFORMATION: 1ST PAYOR NAME MEDICARE 1ST PAYOR PHONE 1ST PAYOR INJURY/ILLNESS DUE TO ACCIDENT? No ANOTHER REPUBLICAN RESPONSIBLE? 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 is a 88 yo Right-handed white female. On 09/09/2018 she was admitted to [facility] with diagnosis Abdominal aortic aneurysm (I71.4). 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 Pre-morbidly, Pt. was independent/mod-I in Self-Care, Sphincter Control, Transfers Control, Locomotio n, Communication, and Social Cognition; and she had good Sphincter Control. Currently, she has deficits of Transfers Control, Locomotion, Communication, Social Cognition, Endura nce, Balance, Safety Awareness, and Self-Care. Pt. is now referred to [facility] for acute in-patient rehabilitation in order to maximize patient's functional independence in activities of daily living, strength, ROM, and mobi lity. Patient has realistic goal of being discharged at assistance level 6-Shara to reside at Home with Fam pamela/Relatives. Jeannie Whitlock is an 88 old female that lives in a single madhuri house with her . She has provider to assist with bath, section housekeeper to clean house and family gets groceries and take to appointments. On 09/09/2018, she had a abdominal pain, nausea and vomiting and CT done showing enlarged abdominal aneurysm and w3as admitted at [facility]. She is now medically sta ble but in need of 24-hour nursing, doctor supervision and oversite while receiving participate in 3hours of therapy a day/15 hours per week and receive care with an intensive interdisciplinary approach. PAST MEDICAL HISTORY AFib CAD CHF Obstructive sleep apnea UTI diabetes hypertension severe COPD MEDICATION ALLERGIES: No Known Drug Allergies (NKDA) ENVIRONMENTAL ALLERGIES: - Substance Allergies None Known - Other Allergies None Known CODE STATUS: Full code WEIGHT/HEIGHT/BMI: WEIGHT 157 lbs HEIGHT 5' 4" BMI 26.9 DIET: - Diet Type Regular - Diet - Solid Texture Regular - Diet - Liquid Texture Regular - Tube Feed N/A REVIEW OF SYSTEMS: - Gen Alert and awake Lying in bed No apparent distress Oriented to: person, time, and place - Vital Signs Vital signs stable, afebrile - CVS RRR VITAL SIGNS Temperature: 97.6 F SBP/DBP: 145/68 Pulse: 77 Resp: 24 Vital signs stable, afebrile MEDICATIONS/TREATMENT: Other- See attached MAR (Medication Administration Record). CURRENT SPHINCTER CONTROL: Pre-hospital bladder status: continent # of bladder accidents in the last 7 days prior to screenin Pre-hospital bowel status: continent # of bowel accidents in the last 7 days prior to screenin Last Bowel Movement Date: 09/20/2018 DETAILED CURRENT FUNCTIONAL STATUS: - Bladder accident frequency: Ind - No accidents in the past 7 days - Bowel accident frequency: Ind - No accidents in the past 7 days - Walking score based on distance walked: 0(N/A) - Wheelchair score based on distance traveled: 0(N/A) FUNCTIONAL STATUS: - Self-Care A. Eating Ind Ind B. Grooming Ind sup C. Bathing Ind sup D. Dressing - Upper Ind sup E. Dressing - Lower Ind Dep F. Toileting Ind modA - Sphincter Control G: Bladder control Ind Ind H: Bowel control Ind Ind - Transfers Control I. Bed/Chair/Wheelchair Ind Aide J. Toilet Ind Aide K. Tub/Shower Ind Aide - Locomotion L. Walk/Wheelchair (B) Ind Dep M. Stairs Ind ADNO - Communication N. Comprehension (B) Ind sup O. Expression (B) Ind sup - Social Cognition P. Social Interaction Ind sup Q. Problem Solving Ind sup R. Memory Ind sup - Endurance Poor - Balance Poor - Safety Awareness Poor CURRENT FUNC. DEFICITS: Transfers Control, Locomotion, Communication, Social Cognition, Endurance, Balance, Safety Awareness, and Self-Care THERAPY NOTES FROM ACUTE CARE: Attached. SPECIAL NEEDS: - Safety Concerns Skin breakdown precautions needed due to skin breakdown risk PATIENT NEEDS ACTIVE AND ONGOING THERAPEUTIC INTERVENTION OF MULTIPLE THERAPY DISCIPLINES, INCLUDING: - Orthotics/Prosthetics Orthotic Evaluation. Splinting/Casting. - Dietary and Nutrition Adequate Nutrition. Nutritional Education. Nutritional Supplements. PATIENT NEEDS CLOSE MEDICAL SUPERVISION BY A REHABILITATION PHYSICIAN FOR: Bowel and Bladder Management Coordination of Treatment Team Diabetes Management Medical and Co-Morbidity Management PATIENT REQUIRES 24X7 REHAB NURSING FOR MEDICAL AND FUNCTIONAL MGT. OF THE FOLLOWING DEFICITS: ADL's Ambulation Bowel and Bladder Management Cognition Communication Disease Management Medication Management Patient/Family Education Providing Safe Environment Transfers PATIENT REQUIRES INTENSIVE, COORDINATED INTERDISCIPLINARY APPROACH TO REHAB: Arranging Home Equipment/Services Discharge Planning Family Intervention/Training Line And Frame Poler/Case Management PATIENT REHAB POTENTIAL: Dave WHITLOCK is able and expected to receive 3 hours of individualized therapy daily on at least 5 of e very 7 days Dave WHITLOCK's prognosis for significant practical improvement within a reasonable period of time appea rs Good Expected level of measurable improvement will be of a practical value to Dave WHITLOCK's functional capa city or adaptations to impairments Has a viable Discharge Plan Medically appropriate; condition is sufficiently stable to participate in intensive rehab program DISCHARGE PLAN: - Estimated Length of Stay (days) 16. - Consensus on plan Discharge plan has been discussed with primary caregiver. Patient/Family is in agreement with the doris n. Primary caregiver is in agreement with the plan. - Patient/Family Goals Return home with assistance. - Planned Living Setting Upon Discharge Home, to live with Family/Relatives. RECOMMENDED CARE LEVEL: IRF RECOMMENDATION DETAILS: Recommended Admission to Comprehensive Rehabilitation Program to Increase Functional [place] [facility] REVIEW AND ADMISSION DETERMINATION Admit - Based on my review of the Pre-Admission Screening results, in my medical judgment and experie nce, I concur with the findings and recommend admission to [facility], as this patient requires an IRF level of care. SIGNATURE PANEL: Clinical Liaison - [electronically] signed by Mary Patino on 09/20/2018 at 11:26 (CDT) Clinical Liaison - [electronically] signed by Marine Boucher on 09/20/2018 at 11:27 (CDT) Physician Reviewer - [electronically] signed by Dr. Cristy Toussaint on 09/20/2018 at 11:46 (CDT)
--- OUTSIDE RECORDS SUMMARY | 2018-09-20 16:06 | XMS REPORT ---
:1930 [facility] Address [address] [place] [address] Care Team Providers Name Role Phone Unavailable Unavailable Unavailable Payers Payer Name Policy Type Policy Number Effective Date Expiration Date Problems This patient has no known problems. Allergies, Adverse Reactions, Alerts Allergy Name Allergy Status Severity Reaction(s) Onset Inactive Treating Comments Type Date Date Clinician iodine DA Active MO -08 00:00: 00 ciprofloxacin DA Active U 3- 00:00: 00 Kffqynw-Bfl-Alr DA Active U Reductase 3-01 Inhibitor 00:00: 00 Penicillins DA Active MO 2012-02 00:00: 00 codeine DA Active MO 2012-02 00:00: 00 adhesive DA Active U 2012-02 00:00: 00 Medications This patient has no known medications. Encounters Start End Encounter Admission Attending Care Care Encounter Date/Time Date/Time Type Type Clinicians Facility Department ID 2018-09-09 Inpatient U [facility] [id number] 14:59:00 Results Test Description Test Time Test Comments Text Results Atomic Results Result Comments GLUCOSE BEDSIDE TESTING 2018-04-24 11:31:00 Test Item Value Reference Range Comments GLUCOSE BEDSIDE TESTING (test code=GLUBED) 165 MG/DL 60-99 GLUCOSE BEDSIDE [id number] 08:35:00 Test Item Value Reference Range Comments GLUCOSE BEDSIDE TESTING (test code=GLUBED) 106 MG/DL 60-99 GLUCOSE BEDSIDE [id number] 21:27:00 Test Item Value Reference Range Comments GLUCOSE BEDSIDE TESTING (test code=GLUBED) 120 MG/DL 60-99 GLUCOSE BEDSIDE [id number] 16:37:00 Test Item Value Reference Range Comments GLUCOSE BEDSIDE TESTING (test code=GLUBED) 203 MG/DL 60-99 GLUCOSE BEDSIDE [id number] 12:26:00 Test Item Value Reference Range Comments GLUCOSE BEDSIDE TESTING (test code=GLUBED) 96 MG/DL 60-99 GLUCOSE BEDSIDE [id number] 07:56:00 Test Item Value Reference Range Comments GLUCOSE BEDSIDE TESTING (test code=GLUBED) 153 MG/DL 60-99 GLUCOSE BEDSIDE [id number] 20:19:00 Test Item Value Reference Range Comments GLUCOSE BEDSIDE TESTING (test code=GLUBED) 229 MG/DL 60-99 GLUCOSE BEDSIDE [id number] 16:49:00 Test Item Value Reference Range Comments GLUCOSE BEDSIDE TESTING (test code=GLUBED) 191 MG/DL 60-99 GLUCOSE BEDSIDE [id number] 12:48:00 Test Item Value Reference Range Comments GLUCOSE BEDSIDE TESTING (test code=GLUBED) 194 MG/DL 60-99 GLUCOSE BEDSIDE [id number] 07:39:00 Test Item Value Reference Range Comments GLUCOSE BEDSIDE TESTING (test code=GLUBED) 200 MG/DL 60-99 GLUCOSE BEDSIDE [id number] 05:51:00 Test Item Value Reference Range Comments GLUCOSE BEDSIDE TESTING (test code=GLUBED) 225 MG/DL 60-99 GLUCOSE BEDSIDE [id number] 23:44:00 Test Item Value Reference Range Comments GLUCOSE BEDSIDE TESTING (test 441 MG/DL 60-99 Call Lab Stat GLu~ code=GLUBED) [id number] 21:43:00 Test Item Value Reference Range Comments GLUCOSE (test code=GLU) 392 MG/DL 74-106 CALLED TO MAINE Castrejon& LONA ON 04/21/18 AT 2143 BY Annie Blackmon GLUCOSE BEDSIDE [id number] 17:57:00 Test Item Value Reference Range Comments GLUCOSE BEDSIDE TESTING (test code=GLUBED) 257 MG/DL 60-99 - XR CHEST [id number] 17:15:00 Patient Name: SUSANA YAO Unit No: [id number] EXAMS: CPT CODE: [id number] XR CHEST 1V 26202 Location: T18 CHEST X-RAY: Portable AP frontal [...] Sofi Haider (RT) (AART) Transcrpt Date/Tm/Trnsp: 04/21/2018 (9656) [email or web address] Orig Print D/T: S: 04/21/2018 (1423) [facility] NAME: SUSANA YAO [address] [place] [address] PHYS: [place] [address] : 1930 AGE: 88 SEX: F LOC: [id number].352 A PHONE #: [phone] EXAM DATE: 04/21/2018 STATUS: ADM IN FAX #: [phone] RADIOLOGY NO: PAGE 1 Signed ReportGLUCOSE BEDSIDE [id number] 16:57:00 Test Item Value Reference Range Comments GLUCOSE BEDSIDE TESTING (test code=GLUBED) 147 MG/DL 60-99 PROTHROMBIN [id number] 11:24:00 Test Item Value Reference Range Comments [...] systemic embolism. 3.0 - 4.5 Comments to Watch Hairspring Assembler: PLEASE DRAW ASAPPTT [id number] 11:24:00 Test Item Value Reference Range Comments PTT ACTIVATED (test code=APTT) 24.2 SECONDS 22.0-33.0 Comments to Watch Hairspring Assembler: PLEASE DRAW ASAPGLUCOSE BEDSIDE [id number] 08: 03:00 Test Item Value Reference Range Comments GLUCOSE BEDSIDE TESTING (test code=GLUBED) 129 MG/DL 60-99 GLUCOSE BEDSIDE [id number] 21:47:00 Test Item Value Reference Range Comments GLUCOSE BEDSIDE TESTING (test code=GLUBED) 199 MG/DL 60-99 GLUCOSE BEDSIDE [id number] 16:15:00 Test Item Value Reference Range Comments GLUCOSE BEDSIDE TESTING (test code=GLUBED) 91 MG/DL 60-99 GLUCOSE BEDSIDE [id number] 12:34:00 Test Item Value Reference Range Comments GLUCOSE BEDSIDE TESTING (test code=GLUBED) 109 MG/DL 60-99 BASIC METABOLIC [id number] 11:32:00 Test Item Value Reference Range Comments [...] HIGH.........130-159 mg/dL HIGH.........160-189 mg/dL VERY HIGH.........>/=190 mg/dL [id number] 11:32:00 Test Item Value Reference Range Comments TROPONIN-I (test 0.572 NG/ML 0.012-0.033 CALLED TO RAY& READBACK ON code=TROPI) 04/20/18 AT 1132 BY Alberto Betancur BASIC METABOLIC [id number] 11:14:00 Test Item Value Reference Range Comments [...] code=HDL) LIPOPROTEIN LDL (test MG/DL 0-99 code=LDL) [id number] 11:14:00 Test Item Value Reference Range Comments TROPONIN-I (test code=TROPI) NG/ML 0.0-0.045 GLYCOSYLATED HEMOGLOBIN [id number] 11:11:00 Test Item Value Reference Range Comments [...] (test 151 MG/DL 70-110 code=MBG) CBC W/AUTO [id number] 10:48:00 Test Item Value Reference Range Comments [...] (test code=NRBC#) 0.00 K/mm3 0.0-0.1 GLUCOSE BEDSIDE [id number] 08:27:00 Test Item Value Reference Range Comments GLUCOSE BEDSIDE TESTING (test code=GLUBED) 112 MG/DL 60-99 GLUCOSE BEDSIDE [id number] 06:18:00 Test Item Value Reference Range Comments GLUCOSE BEDSIDE TESTING (test code=GLUBED) 92 MG/DL 60-99 [id number] 02:10:00 Test Item Value Reference Range Comments TROPONIN-I (test 0.679 NG/ML 0.012-0.033 CALLED TO [facility] imu & code=TROPI) READBACK ON 04/20/18 AT 0209 BY Sejal Monson GLUCOSE BEDSIDE [id number] 23:12:00 Test Item Value Reference Range Comments GLUCOSE BEDSIDE TESTING (test code=GLUBED) 196 MG/DL 60-99 BASIC METABOLIC [id number] 21:51:00 Test Item Value Reference Range Comments [...] (test code=CA) 9.5 MG/DL 8.4-10.2 CBC W/AUTO [id number] 21:32:00 Test Item Value Reference Range Comments [...] (test code=NRBC#) 0.00 K/mm3 0.0-0.1 LIPOPROTEIN LDL [id number] 19:21:00 Test Item Value Reference Range Comments LIPOPROTEIN LDL DIRECT (test 126 mg/dL 100-129 code=LDLDIR) ===Reference Interval: mg/dL mmol/L ---------Optimal <100 <2.6Near/above optimal 100-129 2.6-3.3Borderline High 130-159 3.4-4.1High 160-189 4.1-4.9Very High >=190 >=4.9=========This LDL result is a direct measurement.========= [id number] 19:21:00 Test Item Value Reference Range Comments TROPONIN-I (test 0.720 NG/ML 0.012-0.033 CALLED TO KHRIS Oakes & code=TROPI) READBACK ON 04/19/18 AT 1901 Karen Gilbert LIPOPROTEIN LDL [id number] 19:04:00 Test Item Value Reference Range Comments LIPOPROTEIN LDL DIRECT (test code=LDLDIR) mg/dL 100-129 [id number] 19:04:00 Test Item Value Reference Range Comments TROPONIN-I (test 0.720 NG/ML 0.012-0.033 CALLED TO KHRIS Oakes & code=TROPI) READBACK ON 04/19/18 AT 1901 Karen Gilbert GLUCOSE BEDSIDE [id number] 12:58:00 Test Item Value Reference Range Comments GLUCOSE BEDSIDE TESTING (test code=GLUBED) 289 MG/DL 60-99 GLUCOSE BEDSIDE [id number] 08:36:00 Test Item Value Reference Range Comments GLUCOSE BEDSIDE TESTING (test code=GLUBED) 128 MG/DL 60-99 GLUCOSE BEDSIDE [id number] 20:27:00 Test Item Value Reference Range Comments GLUCOSE BEDSIDE TESTING (test code=GLUBED) 214 MG/DL 60-99 GLUCOSE BEDSIDE [id number] 16:59:00 Test Item Value Reference Range Comments GLUCOSE BEDSIDE TESTING (test code=GLUBED) 313 MG/DL 60-99 GLUCOSE BEDSIDE [id number] 12:15:00 Test Item Value Reference Range Comments GLUCOSE BEDSIDE TESTING (test code=GLUBED) 141 MG/DL 60-99 GLUCOSE BEDSIDE [id number] 10:30:00 Test Item Value Reference Range Comments GLUCOSE BEDSIDE TESTING (test code=GLUBED) 139 MG/DL 60-99 GLUCOSE BEDSIDE [id number] 07:52:00 Test Item Value Reference Range Comments GLUCOSE BEDSIDE TESTING (test code=GLUBED) 81 MG/DL 60-99 GLUCOSE BEDSIDE [id number] 18:39:00 Test Item Value Reference Range Comments GLUCOSE BEDSIDE TESTING (test code=GLUBED) 336 MG/DL 60-99 GLUCOSE BEDSIDE [id number] 12:50:00 Test Item Value Reference Range Comments GLUCOSE BEDSIDE TESTING (test code=GLUBED) 127 MG/DL 60-99 GLUCOSE BEDSIDE [id number] 12:49:00 Test Item Value Reference Range Comments GLUCOSE BEDSIDE TESTING (test code=GLUBED) 204 MG/DL 60-99 GLUCOSE BEDSIDE [id number] 20:45:00 Test Item Value Reference Range Comments GLUCOSE BEDSIDE TESTING (test code=GLUBED) 243 MG/DL 60-99 GLUCOSE BEDSIDE [id number] 16:05:00 Test Item Value Reference Range Comments GLUCOSE BEDSIDE TESTING (test code=GLUBED) 192 MG/DL 60-99 GLUCOSE BEDSIDE [id number] 11:02:00 Test Item Value Reference Range Comments GLUCOSE BEDSIDE TESTING (test code=GLUBED) 159 MG/DL 60-99 GLUCOSE BEDSIDE [id number] 07:43:00 Test Item Value Reference Range Comments GLUCOSE BEDSIDE TESTING (test code=GLUBED) 138 MG/DL 60-99 GLUCOSE BEDSIDE [id number] 04:20:00 Test Item Value Reference Range Comments GLUCOSE BEDSIDE TESTING (test code=GLUBED) 227 MG/DL 60-99 GLUCOSE BEDSIDE [id number] 04:20:00 Test Item Value Reference Range Comments GLUCOSE BEDSIDE TESTING (test code=GLUBED) 275 MG/DL 60-99 GLUCOSE BEDSIDE [id number] 20:27:00 Test Item Value Reference Range Comments GLUCOSE BEDSIDE TESTING (test code=GLUBED) 258 MG/DL 60-99 GLUCOSE BEDSIDE [id number] 17:10:00 Test Item Value Reference Range Comments GLUCOSE BEDSIDE TESTING (test code=GLUBED) 283 MG/DL 60-99 GLUCOSE BEDSIDE [id number] 05:52:00 Test Item Value Reference Range Comments GLUCOSE BEDSIDE TESTING (test code=GLUBED) 276 MG/DL 60-99 COMPREHENSIVE METABOLIC [id number] 21:59:00 Test Item Value Reference Range Comments [...] ALKALINE PHOSPHATASE (test 58 UNITS/L 38-126 code=ALKP) [id number] 21:59:00 Test Item Value Reference Range Comments PHOSPHOROUS (test code=PHOS) 2.4 MG/DL 2.5-4.5 [id number] 21:59:00 Test Item Value Reference Range Comments MAGNESIUM (test code=MAG) 2.1 MG/DL 1.6-2.3 CBC W/AUTO [id number] 21:46:00 Test Item Value Reference Range Comments [...] (test code=NRBC#) 0.00 K/mm3 0.0-0.1 GLUCOSE BEDSIDE [id number] 21:36:00 Test Item Value Reference Range Comments GLUCOSE BEDSIDE TESTING (test code=GLUBED) 268 MG/DL 60-99 GLUCOSE BEDSIDE [id number] 21:36:00 Test Item Value Reference Range Comments GLUCOSE BEDSIDE TESTING (test code=GLUBED) 223 MG/DL 60-99 GLUCOSE BEDSIDE [id number] 21:36:00 Test Item Value Reference Range Comments GLUCOSE BEDSIDE TESTING (test code=GLUBED) 147 MG/DL 60-99 GLUCOSE BEDSIDE [id number] 21:36:00 Test Item Value Reference Range Comments GLUCOSE BEDSIDE TESTING (test code=GLUBED) 194 MG/DL 60-99 - XR CHEST [id number] 20:15:00 Patient Name: SUSANA YAO Unit No: [id number] EXAMS: CPT CODE: [id number] XR CHEST 1V 92854 AP VIEW OF THE CHEST LOCATION: B2 [...] Annalisa Avelar (RT) Transcrpt Date/Tm/Trnsp: 04/14/2018 (2014) [email or web address] Orig Print D/T: S: 04/14/2018 (2018) [facility] NAME: BUD [id number] PHYS: [place] [address] : 1930 AGE: 88 SEX: F LOC: Z.SI11 A PHONE #: [phone] EXAM DATE: 04/14/2018 STATUS: ADM IN FAX #: [phone] RADIOLOGY NO: PAGE 1 Signed ReportGLUCOSE BEDSIDE [id number] 06:58:00 Test Item Value Reference Range Comments GLUCOSE BEDSIDE TESTING (test code=GLUBED) 230 MG/DL 60-99
[2018-09-20] MEDS ORDERED: GLUCAGON 1 MG/VIAL IM PRN ×2 (16:17→16:26)
[2018-09-20] MEDS ORDERED: BISACODYL 10 MG RECTAL SUPP PR PRN (16:17)
[2018-09-20] MEDS ORDERED: D50W 25 GM/50 ML SYRINGE IV PRN ×2 (16:17→16:26)
[2018-09-20] MEDS ORDERED: DIPHENHYDRAMINE 25 MG TAB/CAP PO PRN (16:17)
[2018-09-20] MEDS ORDERED: ALBUTEROL INHALER 60 PUFF/8 GM IH PRN (16:17)
[2018-09-20] MEDS ORDERED: MELATONIN 3 MG TABLET PO PRN (16:17)
[2018-09-20] MEDS ORDERED: ACETAMINOPHEN 325 MG TABLET PO PRN (16:17)
[2018-09-20] MEDS ORDERED: DOCUSATE NA/SENNA CONC 1 TAB PO PRN (16:26)
[2018-09-20] MEDS ORDERED: POLYVINYL ALCOHOL 1.4% 15 ML OPTH PRN (16:51)
[2018-09-20] MEDS ORDERED: HEPARIN 5000 UNIT/ML 1 ML VIAL SQ SCH (17:00)
[2018-09-20] MEDS: INSULIN -REGULAR HUMAN 50 UNIT/0.5 ML ML SQ SCH ×2 (17:34→21:00)
[2018-09-20] MEDS: FUROSEMIDE 20 MG TABLET PO SCH (17:35)
[2018-09-20] MEDS: ISOSORBIDE MONO SR 30 MG TAB PO SCH (17:36)
[2018-09-20] MEDS ORDERED: METOPROLOL XL 50 MG TAB PO SCH (18:00)
[2018-09-20 18:58] LABS: Urine Appearance CLEAR; Urine Bilirubin NEGATIVE (NEG); Urine Blood NEGATIVE (NEG); Urine Color YELLOW; Urine Glucose 1+ (NEG); Urine Protein NEGATIVE (NEG); Urine Urobilinogen 0.2 mg/dL (0.2-1.0); Urine pH 7.5 (5.0-7.0)
[2018-09-20] MEDS: HEPARIN 5000 UNIT/ML 1 ML VIAL SQ SCH (19:01)
[2018-09-20 19:12] LABS: Urine Bacteria <20 /HPF (<20); Urine Culture Reflex Order NOT NEEDED; Urine RBC <5 /HPF (NONE SEEN)
[2018-09-20] MEDS: ARFORMOTEROL TARTRATE 15 MCG/2 ML VIAL.NEB NEB SCH (20:00)
[2018-09-20] MEDS: METOPROLOL TAR 50 MG TAB PO SCH (20:03)
[2018-09-20] MEDS: LACTOBACILLUS/ACIDOPHILUS TAB PO SCH (20:03)
[2018-09-20] MEDS: LISINOPRIL 10 MG TAB PO SCH (21:00)
[2018-09-21] MEDS: HEPARIN 5000 UNIT/ML 1 ML VIAL SQ SCH ×2 (06:24→19:04)
[2018-09-21 06:39] LABS: Basophils % 0.3 % (0-1.3); Hematocrit 25.3 % (36.0-45.0); Lymphocytes % 14.7 % (15.3-44.8); MPV 6.7 fL (7.6-11.3); RBC Red Blood Cell Count 2.75 M/uL (3.86-4.86)
[2018-09-21] MEDS: INSULIN -REGULAR HUMAN 50 UNIT/0.5 ML ML SQ SCH ×4 (06:47→21:00)
[2018-09-21 06:58] LABS: Albumin 2.7 g/dL (3.4-5.0); Magnesium 2.1 mg/dL (1.8-2.4); Potassium 3.8 mmol/L (3.5-5.1); Prealbumin 17.1 mg/dL (20-40)
[2018-09-21] MEDS: ARFORMOTEROL TARTRATE 15 MCG/2 ML VIAL.NEB NEB SCH ×2 (07:45→20:05)
[2018-09-21] MEDS: INSULIN GLARGINE 100 UNITS/ML SQ SCH (08:33)
[2018-09-21] MEDS: FUROSEMIDE 20 MG TABLET PO SCH ×2 (08:34→16:31)
[2018-09-21] MEDS: LACTOBACILLUS/ACIDOPHILUS TAB PO SCH ×2 (08:34→19:56)
[2018-09-21] MEDS: ASPIRIN EC 81 MG TAB PO SCH (08:34)
[2018-09-21] MEDS: AMIODARONE HCL 200 MG TAB PO SCH (08:34)
[2018-09-21] MEDS: METOPROLOL TAR 50 MG TAB PO SCH ×2 (08:35→19:57)
[2018-09-21] MEDS: ISOSORBIDE MONO SR 30 MG TAB PO SCH (08:35)
[2018-09-21] MEDS: TIOTROPIUM 5 SPRAYS/INHALER IH SCH (08:37)
[2018-09-21] MEDS: VITAMIN D 400 UNIT TAB PO SCH (09:09)
--- NOTE | 2018-09-21 10:08 | P.RH.PN ---
Estimated Length of Stay: 12 Expected Discharge Date: 10/01/18 Discharge Disposition Plan: Home Family Support: Yes Jail Goal: Mobility Vital Signs: Last Vital Signs Temp 97.8 F 09/21/18 07:08 Pulse 78 09/21/18 08:35 Resp 20 09/21/18 07:08 BP 152/59 H 09/21/18 08:35 Pulse Ox 100 09/21/18 07:08 Laboratory: Laboratory Last Values WBC 6.5 K/uL (4.3-10.9) D 09/21/18 06:20 RBC 2.75 M/uL (3.86-4.86) L D 09/21/18 06:20 Hgb 8.5 g/dL (12.0-15.0) L D 09/21/18 06:20 Hct 25.3 % (36.0-45.0) L D 09/21/18 06:20 MCV 92.0 fL (80-100) 09/21/18 06:20 MCH 31.0 pg (27.0-35.0) 09/21/18 06:20 MCHC 33.6 g/dL (32.0-36.0) 09/21/18 06:20 RDW 15.3 % (12.1-15.2) H 09/21/18 06:20 Plt Count 198 K/uL (152-406) D 09/21/18 06:20 MPV 6.7 fL (7.6-11.3) L D 09/21/18 06:20 Neutrophils % 73.2 % (41.7-73.7) 09/21/18 06:20 Lymphocytes % 14.7 % (15.3-44.8) L 09/21/18 06:20 Monocytes % 10.4 % (3.3-12.3) 09/21/18 06:20 Eosinophils % 1.4 % (0-4.4) 09/21/18 06:20 Basophils % 0.3 % (0-1.3) 09/21/18 06:20 Absolute Neutrophils 4.8 K/uL (1.8-8.0) 09/21/18 06:20 Absolute Lymphocytes 1.0 K/uL (0.7-4.9) 09/21/18 06:20 Absolute Monocytes 0.7 K/uL (0.1-1.3) 09/21/18 06:20 Absolute Eosinophils 0.1 K/uL (0-0.5) 09/21/18 06:20 Absolute Basophils 0.0 K/uL (0-0.5) 09/21/18 06:20 Sodium 143 mmol/L (136-145) 09/21/18 06:20 Potassium 3.8 mmol/L (3.5-5.1) 09/21/18 06:20 Chloride 105 mmol/L (98-107) 09/21/18 06:20 Carbon Dioxide 34 mmol/L (21-32) H 09/21/18 06:20 BUN 13 mg/dL (7-18) 09/21/18 06:20 Creatinine 1.02 mg/dL (0.55-1.3) 09/21/18 06:20 Estimated GFR 51 mL/min (=/>90) L 09/21/18 06:20 Glucose 159 mg/dL (74-106) H 09/21/18 06:20 POC Glucose 175 mg/dl (65-120) H 09/21/18 06:46 Calcium 8.0 mg/dL (8.5-10.1) L D 09/21/18 06:20 Magnesium 2.1 mg/dL (1.8-2.4) 09/21/18 06:20 Albumin 2.7 g/dL (3.4-5.0) L 09/21/18 06:20 Prealbumin 17.1 mg/dL (20-40) L 09/21/18 06:20 Urine Color Yellow 09/20/18 18:05 Urine Appearance Clear 09/20/18 18:05 Urine pH 7.5 (5.0-7.0) H 09/20/18 18:05 Ur Specific Gem 1.010 (1.005-1.030) 09/20/18 18:05 Urine Ketones Negative (NEG) 09/20/18 18:05 Urine Blood Negative (NEG) 09/20/18 18:05 Urine Nitrite Negative (NEG) 09/20/18 18:05 Urine Bilirubin Negative (NEG) 09/20/18 18:05 Urine Urobilinogen 0.2 mg/dL (0.2-1.0) 09/20/18 18:05 Ur Leukocyte Esterase Negative (NEG) 09/20/18 18:05 Urine RBC <5 /HPF (NONE SEEN) 09/20/18 18:05 Urine WBC None seen /HPF (<5) 09/20/18 18:05 Ur Squamous Epith Cells <5 /HPF (NONE SEEN) 09/20/18 18:05 Urine Bacteria <20 /HPF (<20) 09/20/18 18:05 Urine Culture Reflexed Not needed 09/20/18 18:05 Urine Glucose 1+ (NEG) H 09/20/18 18:05 Urine Total Protein Negative (NEG) 09/20/18 18:05 Weight: 146 lb 14.4 oz Wound Present: Yes Closed Surgical Incision Present: Yes Negative Pressure Wound Therapy Present: No Physician Update: Patient is anemic; Doing well awaiting evaluation. 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 Please see the Rehabilitation Signature page for all necessary signatures.
--- NOTE | 2018-09-21 11:51 | PAPE ---
PATIENT: [facility] MR# [id number] REFERRING DOCTOR Ozzie Fleming EVALUATION DATE AND TIME 09/21/2018 11:48 (CDT) NAME SUSANA YAO DATE OF 1930 AGE 88 PHONE SSN# [id number] GENDER female EVALUATING PHYSICIAN Dr. Cristy Toussaint ADMISSION DIAGNOSIS: Abdominal aortic aneurysm (I71.4) ONSET DATE 09/09/2018 SECONDARY/COMORBID DIAGNOSES TIERED: - N/A hypertension severe COPD Obstructive sleep apnea UTI diabetes CHF AFib CAD POST-ADMISSION FUNCTIONAL/MEDICAL STATUS: - Bladder Same accident frequency: Ind - No accidents in the past 7 days - Bowel Same accident frequency: Ind - No accidents in the past 7 days - Walking Same score based on distance walked: 0(N/A) - Wheelchair Same score based on distance traveled: 0(N/A) STATUS CHANGE EVALUATION: No change in Functional or Medical Status is identified compared with Pre-Admission screening. PRE-ADMISSION FUNCTIONAL/MEDICAL STATUS: - Bladder accident frequency: 7-Ind - No accidents in the past 7 days - Bowel accident frequency: 7-Ind - No accidents in the past 7 days - Walking score based on distance walked: 0(N/A) - Wheelchair score based on distance traveled: 0(N/A) PATIENT NEEDS CLOSE MEDICAL SUPERVISION BY A REHABILITATION PHYSICIAN FOR: Bowel and Bladder Management Coordination of Treatment Team Diabetes Management Medical and Co-Morbidity Management PATIENT REQUIRES 24X7 REHAB NURSING FOR MEDICAL AND FUNCTIONAL MGT. OF THE FOLLOWING DEFICITS: ADL's Ambulation Bowel and Bladder Management Cognition Communication Disease Management Medication Management Patient/Family Education Providing Safe Environment Transfers PATIENT REQUIRES INTENSIVE, COORDINATED INTERDISCIPLINARY APPROACH TO REHAB: Arranging Home Equipment/Services Discharge Planning Family Intervention/Training Substitute Teacher/Case Management LIST OF IDENTIFIED AND POTENTIAL PROBLEMS: Alteration in leisure activities Bladder, Incontinence Blood Pressure, Hypertension/hypotension Issues Bowel, Incontinence Diabetes, Hyperglycemia/hypoglycemia Issues Fluid volume overload related to Congestive Heart Failure (CHF) Infection, Actual or Potential Mobility Impaired Pain, Alteration in Comfort Self Care Deficit Skin Integrity, Actual or Potential Urinary Tract Infection (UTI), Actual or Potential RISK FOR COMPLICATIONS - Hypertension CVA. Hypotension. ME. TIA. - Diabetes DM ulcers. Infection. Ketoacidosis. PVD neuropathy. - CAD CHF. Cardiac Arrest. ME. Pain. INTERVENTIONS - Hypertension - Diabetes BS's. Education. Glycohemoglobin. Medications. Podiatry. - CAD 02 sats. Activity management. Medications. VS. PATIENT COULD BE AT RISK FOR COMPLICATIONS FROM ADVERSE MEDICAL CONDITIONS DUE TO HIS/HER COMORBIDITI ES AND THE RIGORS OF THE INTENSIVE REHABILLITATION PROGRAM. METHODS OR INTERVENTIONS TO AVOID COMPLIC ATIONS INCLUDE: - Infection Clinical staff to assess and manage the signs and symptoms of infection including fever, redness, war mth, etc. - Urinary Tract Infection - Falls Patient will be evaluated for Fall Precautions and will be placed on Fall Precautions as indicated pe r protocol. - Skin Breakdown Nursing will assess skin daily using assessment tool and will place on Skin Breakdown Precautions as indicated per protocol. - Pain Clinical staff may employ non-medication methods such as massage, distraction, decrease stimulus, etc . as needed. Clinical staff will assess patient's pain level every shift per protocol to assess and e nsure pain management effectiveness. Medications will be given and the pain level re-assessed. PRELIMINARY PLAN OF CARE: - Physical Therapy Patient needs Physical Therapy for a daily minimum of 1.5 hours at least 5 out of 7 days, to improve: Mobility, Strengthening, Transfers, Stretching, ROM, Endurance, Ability to manage stairs, Gait, and Balance. - Speech Therapy Patient needs Speech Therapy for a daily minimum of 1 hours at least 5 out of 7 days, to improve: Swa llowing, Cognition, Language Skills, and Compensatory Strategies. - Rehabilitation Nursing Patient requires 24x7 Rehabilitation Nursing for: Pain Issues, Identifying and preventing risk factor s, Monitoring and reporting current medical conditions, Assisting with ambulation and transfer, Rose ting with all ADL-s, Teaching patients about disease process and medications, Family teaching, Provid ing safe environment, Bowel and Bladder Issues, Skin Integrity, and Medication Management. Patient needs Substitute Teacher and/or Case Management for: Discharge Planning, Arranging Home Equipmen t or Services, and Family Interventions. - Dietary and Nutrition Services Patient needs Dietary and Nutrition Services for: Adequate Nutrition, Nutritional Supplements, and Nu tritional Education. - Occupational Therapy Patient needs Occupational Therapy for a daily minimum of 1.5 hours at least 5 out of 7 days, to impr ove Activities of Daily Living, including: Eating, Grooming, Bathing, Dressing, Toileting, Toilet Tra nsfers, Community Reintegration, Higher functional activities, Adaptive Equipment, Splinting, Househo ld Tasks, and Other activities as determined. POTENTIAL FUNCTIONAL GOALS FOR PATIENT TO ACHIEVE BY DISCHARGE: - Safety Precaution Patient will remain free from falls or injury at time of discharge. - Bed Mobility Patient will perform bed mobility at 4-Aide level of assistance. - Transfers Patient will complete transfers from bed to chair at 4-Aide level of assistance. - Mobility Patient will ambulate 150 ft with 4-Aide level of assistance with RW. PATIENT REHAB POTENTIAL Dave YAO is able and expected to receive 3 hours of individualized therapy daily on at least 5 of e very 7 days Dave YAO's prognosis for significant practical improvement within a reasonable period of time appea rs Good Expected level of measurable improvement will be of a practical value to Dave YAO's functional capa city or adaptations to impairments Has a viable Discharge Plan Medically appropriate; condition is sufficiently stable to participate in intensive rehab program DISCHARGE PLAN: - Estimated Length of Stay (days) 16. - Consensus on plan Discharge plan has been discussed with primary caregiver. Patient/Family is in agreement with the doris n. Primary caregiver is in agreement with the plan. - Patient/Family Goals Return home with assistance. - Planned Living Setting Upon Discharge Home, to live with Family/Relatives. CONCLUSION ON REHABILITATION NECESSITY: I have evaluated patient's pre-admission functional status and, comparing it to the patient's post-ad mission functional status now, I conclude that the pre-admission assessment was accurate. Patient's c ondition on admission supports the medical necessity of admission to IRF. It is safe to proceed with patient's therapy program. SIGNATURE PANEL: (CDT)
--- NOTE | 2018-09-21 11:58 | R.HP ---
FACILITY: [facility] ENCOUNTER DATE AND TIME: 09/21/2018 11:56 (CDT) MR#: [id number] NAME JEANNIE WHITLOCK ADDRESS: [address] [place] [address]: [place] [id number] PHONE: DATE OF : 1930 AGE: 88 SSN# [id number] GENDER: Female DEXTERITY Right-handed MARITAL STATUS RACE White PRE-HOSPITAL LIVING SETTING 01 - Home (private home/apt. board/care, assisted living, [place] [facility], transitional living) PRE-HOSPITAL LIVING WITH Family/Relatives ENCOUNTER PHYSICIAN: Dr. Cristy Toussaint REFERRING DOCTOR: Ozzie Fleming DATE OF ADMISSION: 09/20/2018 15:58 (CDT) REFERRING FACILITY [facility] HOME TYPE AND DETAILS: Type of home: single family house # of steps to enter the residence: 0 # of steps within the residence: 0 # of levels in the residence: 1 ADMISSION DIAGNOSIS: Abdominal aortic aneurysm (I71.4) ONSET DATE: 09/09/2018 PRIMARY DIAGNOSIS-RELATED SURGERIES: IFRAA Repair SECONDARY/COMORBID DIAGNOSES (TIERED): - N/A hypertension severe COPD Obstructive sleep apnea UTI diabetes CHF AFib CAD HISTORY OF PRESENT ILLNESS (HPI): Pt. is a 88 yo Right-handed white female. On 09/09/2018 she was admitted to [facility] with diagnosis Abdominal aortic aneurysm (I71.4). 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 Pre-morbidly, Pt. was independent/mod-I in Self-Care, Sphincter Control, Transfers Control, Locomotio n, Communication, and Social Cognition; and she had good Sphincter Control. Currently, she has deficits of Transfers Control, Locomotion, Communication, Social Cognition, Endura nce, Balance, Safety Awareness, and Self-Care. Pt. is now referred to [facility] for acute in-patient rehabilitation in order to maximize patient's functional independence in activities of daily living, strength, ROM, and mobi lity. Patient has realistic goal of being discharged at assistance level 6-Shara to reside at Home with Fam pamela/Relatives. Jeannie Whitlock is an 88 old female that lives in a single madhuri house with her . She has provider to assist with bath, rag cutting machine operator to clean house and family gets groceries and take to appointments. On 09/09/2018, she had a abdominal pain, nausea and vomiting and CT done showing enlarged abdominal aneurysm and w3as admitted at [facility]. She is now medically sta ble but in need of 24-hour nursing, doctor supervision and oversite while receiving participate in 3hours of therapy a day/15 hours per week and receive care with an intensive interdisciplinary approach. MEDICATION ALLERGIES: No Known Drug Allergies (NKDA) ENVIRONMENTAL ALLERGIES: - Substance Allergies None Known - Other Allergies None Known PAST MEDICAL HISTORY: AFib CAD CHF Obstructive sleep apnea UTI diabetes hypertension severe COPD FAMILY HISTORY: Family history is not contributory. SOCIAL HISTORY: - Home Living Family/Relatives REVIEW OF SYSTEMS: - Gen No Chills No Fatigue No Fever - Eyes No Double Vision No itchiness - ENMT No Difficulty Swallowing - CVS No Chest Discomfort No Chest Pain No Fatigue No Weight Gain - Resp No Cough No Shortness of Breath - GI Continent No Abdominal Pain No Constipation No Diarrhea - Continent No Kidney Pain No Painful Urination No Urinary Urgency - MSK No Joint Pain No Muscle Cramps No Stiffness - Skin No Itching No Rash No Suspicious Lesions - Neuro No Coordination Difficulty No Difficulty with Concentration No Memory Loss No Seizures No Weakness - Psych No Anxiety No Depression No HIV Exposure No Persistent Infections No Seasonal Allergies - Endo No Cold/Heat Intolerance No Excessive Hunger No Excessive Thirst No Excessive Urination PHYSICAL EXAM - Gen Alert and awake Lying in bed No apparent distress Oriented to: person, time, and place - Vital Signs Vital signs stable, afebrile - CVS RRR VITAL SIGNS Temperature: 97.6 F SBP/DBP: 145/68 Pulse: 77 Resp: 24 Vital signs stable, afebrile NURSING: - Shower allowing shower - Lab Results blood Sugar Check ACHS - Bladder care per protocol - Skin care per protocol ACTIVITIES OOB only with supervision FUNCTIONAL STATUS: - Self-Care A. Eating Ind Ind B. Grooming Ind sup C. Bathing Ind sup D. Dressing - Upper Ind sup E. Dressing - Lower Ind Dep F. Toileting Ind modA - Sphincter Control G: Bladder control Ind Ind H: Bowel control Ind Ind - Transfers Control I. Bed/Chair/Wheelchair Ind Aide J. Toilet Ind Aide K. Tub/Shower Ind Aide - Locomotion L. Walk/Wheelchair (B) Ind Dep M. Stairs Ind ADNO - Communication N. Comprehension (B) Ind sup O. Expression (B) Ind sup - Social Cognition P. Social Interaction Ind sup Q. Problem Solving Ind sup R. Memory Ind sup - Endurance Poor - Balance Poor - Safety Awareness Poor CURRENT FUNC. DEFICITS: Transfers Control, Locomotion, Communication, Social Cognition, Endurance, Balance, Safety Awareness, and Self-Care MEDICATIONS: - Other See attached MAR (Medication Administration Record) ASSESSMENT: Pt. is a 88 yo Right-handed white female.On 09/09/2018 she was admitted to [facility] with diag nosis Abdominal aortic aneurysm (I71.4).Her impairment category is Spinal Cord Dysfunction 04 - Othe r Non-traumatic Spinal Cord Dysfunction (04.130).Pre-morbidly, Pt. was independent/mod-I in Self-Care , Sphincter Control, Transfers Control, Locomotion, Communication, and Social Cognition; and she had good Sphincter Control.Currently, she has deficits of Transfers Control, Locomotion, Communication, S ocial Cognition, Endurance, Balance, Safety Awareness, and Self-Care.Pt. is now referred to [facility] for acute in-patient rehabilitation in order to maximize patient's functiona l independence in activities of daily living, strength, ROM, and mobility.- Rehab Goal Patient has realistic goal of being discharged at assistance level 6-Shara to reside at Home with Fam pamela/Relatives. Jeannie Whitlock is an 88 old female that lives in a single madhuri house with her . She has provider to assist with bath, rag cutting machine operator to clean house and family gets groceries and take to appointments. On 09/09/2018, she had a abdominal pain, nausea and vomiting and CT done showing enlarged abdominal aneurysm and w3as admitted at [facility]. She is now medically sta ble but in need of 24-hour nursing, doctor supervision and oversite while receiving participate in 3hours of therapy a day/15 hours per week and receive care with an intensive interdisciplinary approach.REHAB PLAN: - Physical Therapy Gait dysfunction - to improve, our physical therapists will perform initial evaluation of pt's status upon admission and devise an individualized program for Gait Training, and Wheel Chair mobility Inability to transfer - to improve, our physical therapists will perform initial evaluation of pt's s tatus upon admission and devise an individualized program for Bed mobility Need for home safety evaluation - to improve, our physical therapists will perform initial evaluation of pt's status upon admission and devise an individualized program for Home Evaluation Need in caregiver upon discharge - to improve, our physical therapists will perform initial evaluatio n of pt's status upon admission and devise an individualized program for Caregiver Training New precaution - to improve, our physical therapists will perform initial evaluation of pt's status u gema admission and devise an individualized program for Patient precaution education Poor balance - to improve, our physical therapists will perform initial evaluation of pt's status upo n admission and devise an individualized program for Balance Training Poor endurance - to improve, our physical therapists will perform initial evaluation of pt's status u gema admission and devise an individualized program for Endurance Training Weakness - to improve, our physical therapists will perform initial evaluation of pt's status upon ad mission and devise an individualized program for Aquatic Therapy, Neuromuscular Reeducation, and Stre ngthening Achieving independence - to improve, our physical therapists will perform initial evaluation of pt's status upon admission and devise an individualized program for Community Reintegration Activities - Occupational Therapy ADL deficits - to improve, our occupation therapists will perform initial evaluation of pt's status u gema admission and devise an individualized program for Bathing, Bed mobility, Community Reintegration , Cooking, Dressing, Eating, Fine Motor Skills, Grooming, Homemaking, Kitchen Mobility, Laundry, Leonie ent Education, Safety Awareness, Splinting - Positioning, Transfers(Toilet, Tub, Shower), and Wheel C hair Management Cognitive deficits - to improve, our occupation therapists will perform initial evaluation of pt's st atus upon admission and devise an individualized program for Cognition - orientation Need for career agent - to improve, our occupation therapists will perform initial evaluation of pt's s tatus upon admission and devise an individualized program for Caregiver Training Weakness - to improve, our occupation therapists will perform initial evaluation of pt's status upon admission and devise an individualized program for Aquatic Therapy, Balance, Endurance, UE ROM, and U E strengthening MEDICAL PLAN: - Diet Type Start Regular - Diet - Liquid Texture Start Regular - Tube Feed Start N/A - Lab Results blood Sugar Check ACHS - Bladder care per protocol - Skin care per protocol - Other See attached MAR (Medication Administration Record) - Diet - Solid Texture Regular - Shower shower DISCHARGE PLAN: - Estimated Length of Stay (days) 16. - Consensus on plan Discharge plan has been discussed with primary caregiver. Patient/Family is in agreement with the doris n. Primary caregiver is in agreement with the plan. - Patient/Family Goals Return home with assistance. - Planned Living Setting Upon Discharge Home, to live with Family/Relatives. SIGNATURE PANEL: (CDT)
--- NOTE | 2018-09-21 15:08 | FAST ---
ENCOUNTER DATE AND TIME: 09/21/2018 08:00 (CDT) NAME SUSANA YAO DATE OF : 1930 DATE OF ADMISSION: 09/20/2018 15:58 (CDT) PHONE: AGE: 88 SSN# [id number] GENDER: Female ENCOUNTER PHYSICIAN: Dr. 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 EATING: Activity did not occur on this shift EATING - SCORE: 0-UNK GROOMING: Comb/brush hair Wash, rinse, and dry face Wash, rinse, and dry hands GROOMING - STEP 1: Does the patient require the assistance of a person or device, or need extra time when grooming? Yes. GROOMING - STEP 2: Does the patient require the assistance of a helper? Yes. GROOMING - STEP 3: How much assistance does the patient require from the helper? More than incidental help GROOMING - STEP 4: How many grooming tasks does the patient perform WITHOUT the assistance of the helper? Half or more o f the grooming tasks GROOMING - SCORE: 3-MOD BATHING: Abdomen Buttocks Chest Left arm Left lower leg and foot Left upper leg Perineal area Right arm Right lower leg and foot Right upper leg BATHING - STEP 1: Does the patient require the assistance of a person or device, or need extra time when bathing? Yes. BATHING - STEP 2: Does the patient require the assistance of a helper? Yes. BATHING - STEP 3: How much assistance does the patient require from the helper? More than just incidental help BATHING - STEP 4: What percent of the body parts did the patient bathe WITHOUT the helper? Half or more of the body par ts BATHING - SCORE: 3-MOD DRESSING - UPPER BODY: T-shirt/pullover shirt (four steps) ARTICLES SCORE Total number of steps: 4 DRESSING - UPPER BODY - STEP 1: Does the patient require help from a person or device, or need extra time when dressing above the juan st? Yes. DRESSING - UPPER BODY - STEP 2: Does the patient require the assistance of a helper? Yes. DRESSING - UPPER BODY - STEP 3: Does the helper touch the patient while dressing? Yes. DRESSING - UPPER BODY - STEP 4: How many of the total steps does the patient complete on his/her own? 2 DRESSING - UPPER BODY - SCORE: 3-MOD DRESSING - LOWER BODY: Elastic waist pants (three steps) Sock - Left foot (one step) Sock - Right foot (one step) Underwear (three steps) ARTICLES SCORE Total number of steps: 8 DRESSING - LOWER BODY - STEP 1: Does the patient require help from a person or device, or need extra time when dressing below the juan st? Yes. DRESSING - LOWER BODY - STEP 2: Does the patient require the assistance of a helper? Yes. DRESSING - LOWER BODY - STEP 3: Does the helper touch the patient while dressing? Yes. DRESSING - LOWER BODY - STEP 4: How many of the total steps does the patient complete on his/her own? 1 DRESSING - LOWER BODY - STEP 5: Does patient require total assistance for dressing below the waist such as the helper holding clothin g and performing basically all the activities? No. DRESSING - LOWER BODY - SCORE: 2-MAX TOILETING: TOILETING - STEP 1: Does the patient require the assistance of a person or device, or need extra time with toileting? Yes . TOILETING - STEP 2: Does the patient require the assistance of a helper? Yes. TOILETING - STEP 3: How much assistance does the patient require from the helper? Hands-on assistance from the helper TOILETING - STEP 4: Of the 3 tasks: 1) Adjusting clothing prior to use, 2) Cleansing of perineal area, 3) Adjusting clot carli after use; How many tasks does the patient perform WITHOUT assistance of the helper? Three tasks with steadying assistance from the helper TOILETING - SCORE: 4-MIN BLADDER MANAGEMENT: Activity did not occur on this shift BLADDER MANAGEMENT - SCORE: 7-IND BOWEL MANAGEMENT: Activity did not occur on this shift BOWEL MANAGEMENT - SCORE: 7-IND TRANSFERS: BED, CHAIR, WHEELCHAIR: TRANSFERS: BED, CHAIR, WHEELCHAIR - STEP 1: Does the patient require assistance of a person or device, or need extra time with bed, chair, or whe elchair transfers? Yes. TRANSFERS: BED, CHAIR, WHEELCHAIR - STEP 2: Does the patient require the assistance of a helper? Yes. TRANSFERS: BED, CHAIR, WHEELCHAIR - STEP 3: How much assistance does the patient require from the helper? Steadying/guiding assistance TRANSFERS: BED, CHAIR, WHEELCHAIR - SCORE: 4-MIN TRANSFERS: TOILET: TRANSFERS: TOILET - STEP 1: Does the patient require the assistance of a person or device, or need extra time with toilet transfe rs? Yes. TRANSFERS: TOILET - STEP 2: Does the patient require the assistance of a helper? Yes. TRANSFERS: TOILET - STEP 3: How much assistance does the patient require from the helper? Patient performs half or more of the tr ansferring tasks TRANSFERS: TOILET - STEP 4: Does the patient need only incidental help such as contact guard or steadying during toilet transfer? Yes. TRANSFERS: TOILET - SCORE: 4-MIN TRANSFERS: SHOWER: Activity did not occur on this shift TRANSFERS: SHOWER - SCORE: 0-UNK TRANSFERS: TUB: TRANSFERS: TUB - STEP 1: Does the patient require the assistance of a person or device, or need extra time with tub transfers? Yes. TRANSFERS: TUB - STEP 2: Does the patient require the assistance of a helper? Yes. TRANSFERS: TUB - STEP 3: How much assistance does the patient require from the helper? Incidental help such as contact guardin g or steadying, OR help to lift one leg into the tub TRANSFERS: TUB - SCORE: 4-MIN LOCOMOTION: WALK: Activity did not occur on this shift LOCOMOTION: WALK - SCORE: 0-UNK LOCOMOTION: WHEELCHAIR: Activity did not occur on this shift LOCOMOTION: WHEELCHAIR - SCORE: 0-UNK LOCOMOTION: STAIRS: Activity did not occur on this shift LOCOMOTION: STAIRS - SCORE: 0-UNK COMPREHENSION: COMPREHENSION: TYPE: Both COMPREHENSION - STEP 1: Does the patient require help from a person or device, or need extra time to understand complex and a bstract ideas (such as current events, finances, discharge planning, medical issues, relationships, e tc)? Yes. COMPREHENSION - STEP 2: Does the patient require help to understand questions or statements about basic needs or ideas (such as hunger, thirst, sleep, safety, daily schedule, room location, or discomfort) half or more of the t kings? No. COMPREHENSION - STEP 3: How often does the patient need help to understand directions and conversation about basic needs? Les s than 10% of the time COMPREHENSION - SCORE: 5-SUP EXPRESSION EXPRESSION: TYPE: Both EXPRESSION - STEP 1: Does the patient require help from a person or device, or need extra time expressing complex and abst ract ideas (such as current events, finances, discharge planning, medical issues, relationships, etc) ? No. EXPRESSION - STEP 2: Does the patient need extra time, require an assistive device (such as augmentive communication syste m or a communication board), OR does s/he have mild difficulty expressing complex and abstract ideas (including mild dysarthria or mild word-find problems)? No. EXPRESSION - SCORE: 7-IND SOCIAL INTERACTION: SOCIAL INTERACTION - STEP 1: Does the patient require a helper to interact with others in social and therapeutic situations? No. SOCIAL INTERACTION - STEP 2: Does the patient need extra time in social situations, OR does s/he interact with staff, other patien ts, and family members ONLY in structured environments, OR does s/he require medication for social in teraction? Yes, patient needs extra time SOCIAL INTERACTION - SCORE: 6-ALEXANDER PROBLEM SOLVING: PROBLEM SOLVING - STEP 1: Does the patient need help from a person or device, or need extra time to solve complex problems such as managing a checking account or confronting interpersonal problems? Yes. PROBLEM SOLVING - STEP 2: Does the patient solve basic routine problems half or more of the time? Yes. PROBLEM SOLVING - STEP 3: How often does the patient need help to solve basic routine problems? Less than 10% of the time PROBLEM SOLVING - SCORE: 5-SUP MEMORY: MEMORY - STEP 1: Does the patient need help from a person or device, or need extra time to remember frequently encount ered people, daily routines, and executing requests? Yes. MEMORY - STEP 2: How often does the patient need help to remember frequently encountered people, daily routines, and e xecuting requests? Less than 10% of the time MEMORY - SCORE: 5-SUP SIGNATURE PANEL: The following modified sections: Eating - Score, Grooming - Score, Bathing - Score, Dressing - Upper Body - Score, Dressing - Lower Body - Score, Toileting - Score, Transfers: Bed, Chair, Wheelchair - S core, Transfers: Toilet - Score, Transfers: Shower - Score, Transfers: Tub - Score, Comprehension - S core, Expression - Score, Social Interaction - Score, Problem Solving - Score, Memory - Score were [e lectronically] signed by Alondra Vo OT on TueSep 21 2018 15:06:31 GMT-0500 (Central Da ylight Time)
--- NOTE | 2018-09-21 16:50 | FAST ---
ENCOUNTER DATE AND TIME: 09/21/2018 08:00 (CDT) NAME SUSANA YAO DATE OF : 1930 DATE OF ADMISSION: 09/20/2018 15:58 (CDT) PHONE: AGE: 88 SSN# [id number] GENDER: Female ENCOUNTER PHYSICIAN: Dr. 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 EATING: Activity did not occur on this shift EATING - SCORE: 0-UNK GROOMING: Activity did not occur on this shift GROOMING - SCORE: 0-UNK BATHING: Activity did not occur on this shift BATHING - SCORE: 0-UNK DRESSING - UPPER BODY: Activity did not occur on this shift Patient is not dressing in public clothing ARTICLES SCORE Total number of steps: 0 DRESSING - UPPER BODY - SCORE: 0-UNK DRESSING - LOWER BODY: Activity did not occur on this shift Patient is not dressing in public clothing ARTICLES SCORE Total number of steps: 0 DRESSING - LOWER BODY - SCORE: 0-UNK TOILETING: Activity did not occur on this shift TOILETING - SCORE: 0-UNK BLADDER MANAGEMENT: Activity did not occur on this shift BLADDER MANAGEMENT - SCORE: 7-IND BOWEL MANAGEMENT: Activity did not occur on this shift BOWEL MANAGEMENT - SCORE: 7-IND TRANSFERS: BED, CHAIR, WHEELCHAIR: TRANSFERS: BED, CHAIR, WHEELCHAIR - STEP 1: Does the patient require assistance of a person or device, or need extra time with bed, chair, or whe elchair transfers? Yes. TRANSFERS: BED, CHAIR, WHEELCHAIR - STEP 2: Does the patient require the assistance of a helper? Yes. TRANSFERS: BED, CHAIR, WHEELCHAIR - STEP 3: How much assistance does the patient require from the helper? Steadying/guiding assistance TRANSFERS: BED, CHAIR, WHEELCHAIR - SCORE: 4-MIN TRANSFERS: TOILET: Activity did not occur on this shift TRANSFERS: TOILET - SCORE: 0-UNK TRANSFERS: SHOWER: Activity did not occur on this shift TRANSFERS: SHOWER - SCORE: 0-UNK TRANSFERS: TUB: Activity did not occur on this shift TRANSFERS: TUB - SCORE: 0-UNK LOCOMOTION: WALK: Patient walks less than 50 feet LOCOMOTION: WALK - SCORE: 1-DEP LOCOMOTION: WHEELCHAIR: Patient propels wheelchair less than 50 ft LOCOMOTION: WHEELCHAIR - SCORE: 1-DEP LOCOMOTION: STAIRS: Activity did not occur on this shift LOCOMOTION: STAIRS - SCORE: 0-UNK COMPREHENSION: COMPREHENSION - SCORE: 0-UNK EXPRESSION EXPRESSION - SCORE: 0-UNK SOCIAL INTERACTION: SOCIAL INTERACTION - SCORE: 0-UNK PROBLEM SOLVING: PROBLEM SOLVING - SCORE: 0-UNK MEMORY: MEMORY - SCORE: 0-UNK SIGNATURE PANEL: The following modified sections: Transfers: Bed, Chair, Wheelchair - Score, Transfers: Toilet - Score , Locomotion: Walk - Score, Locomotion: Wheelchair - Score, Locomotion: Stairs - Score were [electron ically] signed by Can Justin PT on TueSep 21 2018 16:48:53 T-0500 (Central Daylight Time)
[2018-09-21] MEDS: FERROUS SULFATE 325 MG TAB PO SCH (19:56)
[2018-09-21] MEDS: PROMOD 30 ML DOSE PO SCH (20:00)
[2018-09-21] MEDS: LISINOPRIL 10 MG TAB PO SCH (21:29)
--- NOTE | 2018-09-22 03:22 | FAST ---
SHIFT START DATE/TIME: 09/21/2018 19:00 (CDT) SHIFT END DATE/TIME: 09/22/2018 07:00 (CDT) NAME SUSANA YAO DATE OF : 1930 DATE OF ADMISSION: 09/20/2018 15:58 (CDT) PHONE: AGE: 88 N# [id number] GENDER: Female ENCOUNTER PHYSICIAN: Dr. 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 EATING: Activity did not occur on this shift EATING - SCORE: 0-UNK GROOMING: Activity did not occur on this shift GROOMING - SCORE: 0-UNK BATHING: Activity did not occur on this shift BATHING - SCORE: 0-UNK DRESSING - UPPER BODY: Activity did not occur on this shift ARTICLES SCORE Total number of steps: 0 DRESSING - UPPER BODY - SCORE: 0-UNK DRESSING - LOWER BODY: Activity did not occur on this shift ARTICLES SCORE Total number of steps: 0 DRESSING - LOWER BODY - SCORE: 0-UNK TOILETING: TOILETING - SCORE: 0-UNK BLADDER MANAGEMENT: BLADDER MANAGEMENT - STEP 1: Does the patient control the bladder completely and intentionally without equipment or devices or med ications, and is always continent? No. BLADDER MANAGEMENT - STEP 2: Does the patient require the assistance of a helper? Yes. BLADDER MANAGEMENT - STEP 3: How much assistance does the patient require from the helper? Only set-up of equipment - such as plac ing it within reach of the patient or emptying a device - to maintain either satisfactory voiding pat tern or managing an external device, such as an absorbent pad, ileal device, or catheter BLADDER MANAGEMENT - SCORE: 5-SUP BLADDER MANAGEMENT - FREQUENCY OF ACCIDENTS: BLADDER MANAGEMENT(FA) - STEP 1: How many accidents has the patient had during the current shift? 0 BOWEL MANAGEMENT: Activity did not occur on this shift BOWEL MANAGEMENT - SCORE: 7-IND BOWEL MANAGEMENT - FREQUENCY OF ACCIDENTS: BOWEL MANAGEMENT(FA) - STEP 1: How many accidents has the patient had during the current shift? 0 TRANSFERS: BED, CHAIR, WHEELCHAIR: TRANSFERS: BED, CHAIR, WHEELCHAIR - STEP 1: Does the patient require assistance of a person or device, or need extra time with bed, chair, or whe elchair transfers? Yes. TRANSFERS: BED, CHAIR, WHEELCHAIR - STEP 2: Does the patient require the assistance of a helper? Yes. TRANSFERS: BED, CHAIR, WHEELCHAIR - STEP 3: How much assistance does the patient require from the helper? Steadying/guiding assistance TRANSFERS: BED, CHAIR, WHEELCHAIR - SCORE: 4-MIN TRANSFERS: TOILET: TRANSFERS: TOILET - STEP 1: Does the patient require the assistance of a person or device, or need extra time with toilet transfe rs? Yes. TRANSFERS: TOILET - STEP 2: Does the patient require the assistance of a helper? Yes. TRANSFERS: TOILET - STEP 3: How much assistance does the patient require from the helper? Only supervision, cuing, coaxing, OR he lp to set out transfer equipment or to lock brakes and/or lift foot rests TRANSFERS: TOILET - SCORE: 5-SUP TRANSFERS: SHOWER: Activity did not occur on this shift TRANSFERS: SHOWER - SCORE: 0-UNK TRANSFERS: TUB: Activity did not occur on this shift TRANSFERS: TUB - SCORE: 0-UNK LOCOMOTION: WALK: Activity did not occur on this shift LOCOMOTION: WALK - SCORE: 0-UNK LOCOMOTION: WHEELCHAIR: Activity did not occur on this shift LOCOMOTION: WHEELCHAIR - SCORE: 0-UNK COMPREHENSION: COMPREHENSION: TYPE: Both COMPREHENSION - STEP 1: Does the patient require help from a person or device, or need extra time to understand complex and a bstract ideas (such as current events, finances, discharge planning, medical issues, relationships, e tc)? No. COMPREHENSION - STEP 2: Does the patient need extra time, require an assistive device (such as glasses for visual comprehensi on or a hearing aid for auditory comprehension) or does s/he have mild difficulty understanding compl ex and abstract information? Yes. COMPREHENSION - SCORE: 6-ALEXANDER EXPRESSION EXPRESSION: TYPE: Both EXPRESSION - STEP 1: Does the patient require help from a person or device, or need extra time expressing complex and abst ract ideas (such as current events, finances, discharge planning, medical issues, relationships, etc) ? No. EXPRESSION - STEP 2: Does the patient need extra time, require an assistive device (such as augmentive communication syste m or a communication board), OR does s/he have mild difficulty expressing complex and abstract ideas (including mild dysarthria or mild word-find problems)? Yes. EXPRESSION - SCORE: 6-ALEXANDER SOCIAL INTERACTION: SOCIAL INTERACTION - STEP 1: Does the patient require a helper to interact with others in social and therapeutic situations? No. SOCIAL INTERACTION - STEP 2: Does the patient need extra time in social situations, OR does s/he interact with staff, other patien ts, and family members ONLY in structured environments, OR does s/he require medication for social in teraction? Yes, patient needs extra time SOCIAL INTERACTION - SCORE: 6-ALEXANDER PROBLEM SOLVING: PROBLEM SOLVING - STEP 1: Does the patient need help from a person or device, or need extra time to solve complex problems such as managing a checking account or confronting interpersonal problems? No. PROBLEM SOLVING - STEP 2: Does the patient require extra time to make decisions or solve problems, OR does s/he have slight dif ficulty reading, initiating, or self-correcting in unfamiliar situations? Yes, patient needs extra ti me. PROBLEM SOLVING - SCORE: 6-ALEXANDER MEMORY: MEMORY - STEP 1: Does the patient need help from a person or device, or need extra time to remember frequently encount ered people, daily routines, and executing requests? No. MEMORY - STEP 2: Does the patient have slight difficulty recognizing frequently encountered people, daily routines, or executing requests without the need for repetition or using self-initiated or environmental cues to remember? Yes. MEMORY - SCORE: 6-ALEXANDER SIGNATURE PANEL: The following modified sections: Eating - Score, Grooming - Score, Bathing - Score, Dressing - Upper Body - Score, Dressing - Lower Body - Score, Bladder Management - Score, Bowel Management - Score, Tr ansfers: Bed, Chair, Wheelchair - Score, Transfers: Toilet - Score, Transfers: Shower - Score, Transf ers: Tub - Score, Locomotion: Walk - Score, Locomotion: Wheelchair - Score, Comprehension - Score, Ex pression - Score, Social Interaction - Score, Problem Solving - Score, Memory - Score were [aaron mercer] signed by Saira Munroe RN on TueSep 22 2018 03:21:40 GMT-0500 (Central Daylight Time)
[2018-09-22 06:56] LABS: Absolute Lymphocytes (CBC) 1.5 K/uL (0.7-4.9); Basophils % 0.7 % (0-1.3); Hematocrit 24.9 % (36.0-45.0); Lymphocytes % 20.6 % (15.3-44.8); MPV 7.5 fL (7.6-11.3); RBC Red Blood Cell Count 2.69 M/uL (3.86-4.86)
[2018-09-22 07:00] LABS: Protime INR 0.97
[2018-09-22] MEDS: INSULIN -REGULAR HUMAN 50 UNIT/0.5 ML ML SQ SCH ×4 (07:30→20:47)
[2018-09-22 07:38] LABS: Albumin 2.5 g/dL (3.4-5.0); Bilirubin Total 0.4 mg/dL (0.2-1.0); Ferritin 132.8 ng/mL (8-388); Folic Acid, (Folate) 12.7 ng/mL (3.1-17.5); Magnesium 1.9 mg/dL (1.8-2.4); Phosphorus 3.6 mg/dL (2.5-4.9); Potassium 3.8 mmol/L (3.5-5.1); Protein, Total 5.2 g/dL (6.4-8.2)
[2018-09-22] MEDS: PROMOD 30 ML DOSE PO SCH ×3 (08:00→20:48)
[2018-09-22] MEDS: INSULIN GLARGINE 100 UNITS/ML SQ SCH (08:31)
[2018-09-22] MEDS: LACTOBACILLUS/ACIDOPHILUS TAB PO SCH ×2 (08:32→20:46)
[2018-09-22] MEDS: FERROUS SULFATE 325 MG TAB PO SCH ×2 (08:32→20:46)
[2018-09-22] MEDS: ASPIRIN EC 81 MG TAB PO SCH (08:33)
[2018-09-22] MEDS: METOPROLOL TAR 50 MG TAB PO SCH ×2 (08:33→20:46)
[2018-09-22] MEDS: FUROSEMIDE 20 MG TABLET PO SCH ×2 (08:33→17:42)
[2018-09-22] MEDS: VITAMIN D 400 UNIT TAB PO SCH (08:33)
[2018-09-22] MEDS: ISOSORBIDE MONO SR 30 MG TAB PO SCH (08:33)
[2018-09-22] MEDS: AMIODARONE HCL 200 MG TAB PO SCH (08:34)
[2018-09-22] MEDS: TIOTROPIUM 5 SPRAYS/INHALER IH SCH (08:35)
[2018-09-22] MEDS: ARFORMOTEROL TARTRATE 15 MCG/2 ML VIAL.NEB NEB SCH ×2 (08:45→20:15)
[2018-09-22] MEDS: HEPARIN 5000 UNIT/ML 1 ML VIAL SQ SCH ×2 (09:02→20:48)
--- NOTE | 2018-09-22 15:59 | FAST ---
ENCOUNTER DATE AND TIME: 09/22/2018 08:00 (CDT) NAME SUSANA YAO DATE OF : 1930 DATE OF ADMISSION: 09/20/2018 15:58 (CDT) PHONE: AGE: 88 SSN# [id number] GENDER: Female ENCOUNTER PHYSICIAN: Dr. 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 EATING: Activity did not occur on this shift EATING - SCORE: 0-UNK GROOMING: Activity did not occur on this shift GROOMING - SCORE: 0-UNK BATHING: Activity did not occur on this shift BATHING - SCORE: 0-UNK DRESSING - UPPER BODY: Activity did not occur on this shift Patient is not dressing in public clothing ARTICLES SCORE Total number of steps: 0 DRESSING - UPPER BODY - SCORE: 0-UNK DRESSING - LOWER BODY: Activity did not occur on this shift Patient is not dressing in public clothing ARTICLES SCORE Total number of steps: 0 DRESSING - LOWER BODY - SCORE: 0-UNK TOILETING: Activity did not occur on this shift TOILETING - SCORE: 0-UNK BLADDER MANAGEMENT: Activity did not occur on this shift BLADDER MANAGEMENT - SCORE: 7-IND BOWEL MANAGEMENT: Activity did not occur on this shift BOWEL MANAGEMENT - SCORE: 7-IND TRANSFERS: BED, CHAIR, WHEELCHAIR: TRANSFERS: BED, CHAIR, WHEELCHAIR - STEP 1: Does the patient require assistance of a person or device, or need extra time with bed, chair, or whe elchair transfers? Yes. TRANSFERS: BED, CHAIR, WHEELCHAIR - STEP 2: Does the patient require the assistance of a helper? Yes. TRANSFERS: BED, CHAIR, WHEELCHAIR - STEP 3: How much assistance does the patient require from the helper? Only supervision TRANSFERS: BED, CHAIR, WHEELCHAIR - SCORE: 5-SUP TRANSFERS: TOILET: TRANSFERS: TOILET - STEP 1: Does the patient require the assistance of a person or device, or need extra time with toilet transfe rs? Yes. TRANSFERS: TOILET - STEP 2: Does the patient require the assistance of a helper? Yes. TRANSFERS: TOILET - STEP 3: How much assistance does the patient require from the helper? Only supervision, cuing, coaxing, OR he lp to set out transfer equipment or to lock brakes and/or lift foot rests TRANSFERS: TOILET - SCORE: 5-SUP TRANSFERS: SHOWER: Activity did not occur on this shift TRANSFERS: SHOWER - SCORE: 0-UNK TRANSFERS: TUB: Activity did not occur on this shift TRANSFERS: TUB - SCORE: 0-UNK LOCOMOTION: WALK: HOUSEHOLD EXCEPTION: Patient walks at least 50 feet independently (with or without a device) LOCOMOTION: WALK - SCORE: 5-SUP LOCOMOTION: WHEELCHAIR: LOCOMOTION: WHEELCHAIR - STEP 1: Does the patient need help to go 150 feet in a wheelchair? Yes. LOCOMOTION: WHEELCHAIR - STEP 2: How much assistance does the patient need from the helper? Only supervision, cuing, or coaxing LOCOMOTION: WHEELCHAIR - SCORE: 5-SUP LOCOMOTION: STAIRS: Activity did not occur on this shift LOCOMOTION: STAIRS - SCORE: 0-UNK COMPREHENSION: COMPREHENSION - SCORE: 0-UNK EXPRESSION EXPRESSION - SCORE: 0-UNK SOCIAL INTERACTION: SOCIAL INTERACTION - SCORE: 0-UNK PROBLEM SOLVING: PROBLEM SOLVING - SCORE: 0-UNK MEMORY: MEMORY - SCORE: 0-UNK SIGNATURE PANEL: The following modified sections: Transfers: Bed, Chair, Wheelchair - Score, Transfers: Toilet - Score , Locomotion: Walk - Score, Locomotion: Wheelchair - Score, Locomotion: Stairs - Score were [rocio escobar] signed by Alondra Pisano PTA on TueSep 22 2018 15:59:13 GMT-0500 (Central Daylight Time)
[2018-09-22] MEDS: LISINOPRIL 10 MG TAB PO SCH (20:47)
[2018-09-22] MEDS: DOCUSATE NA 100 MG CAP PO PRN (21:02)
--- NOTE | 2018-09-23 02:15 | FAST ---
SHIFT START DATE/TIME: 09/22/2018 19:00 (CDT) SHIFT END DATE/TIME: 09/23/2018 07:00 (CDT) NAME SUSANA YAO DATE OF : 1930 DATE OF ADMISSION: 09/20/2018 15:58 (CDT) PHONE: AGE: 88 N# [id number] GENDER: Female ENCOUNTER PHYSICIAN: Dr. 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 EATING: Activity did not occur on this shift EATING - SCORE: 0-UNK GROOMING: Oral care Wash, rinse, and dry face Wash, rinse, and dry hands GROOMING - STEP 1: Does the patient require the assistance of a person or device, or need extra time when grooming? Yes. GROOMING - STEP 2: Does the patient require the assistance of a helper? Yes. GROOMING - STEP 3: How much assistance does the patient require from the helper? Only prior equipment preparation/set up from the helper GROOMING - SCORE: 5-SUP BATHING: Activity did not occur on this shift BATHING - SCORE: 0-UNK DRESSING - UPPER BODY: Patient is not dressing in public clothing ARTICLES SCORE Total number of steps: 0 DRESSING - UPPER BODY - SCORE: 0-UNK DRESSING - LOWER BODY: Patient is not dressing in public clothing ARTICLES SCORE Total number of steps: 0 DRESSING - LOWER BODY - SCORE: 0-UNK TOILETING: TOILETING - STEP 1: Does the patient require the assistance of a person or device, or need extra time with toileting? Yes . TOILETING - STEP 2: Does the patient require the assistance of a helper? Yes. TOILETING - STEP 3: How much assistance does the patient require from the helper? Hands-on assistance from the helper TOILETING - STEP 4: Of the 3 tasks: 1) Adjusting clothing prior to use, 2) Cleansing of perineal area, 3) Adjusting clot carli after use; How many tasks does the patient perform WITHOUT assistance of the helper? Three tasks with steadying assistance from the helper TOILETING - SCORE: 4-MIN BLADDER MANAGEMENT: BLADDER MANAGEMENT - STEP 1: Does the patient control the bladder completely and intentionally without equipment or devices or med ications, and is always continent? No. BLADDER MANAGEMENT - STEP 2: Does the patient require the assistance of a helper? Yes. BLADDER MANAGEMENT - STEP 3: How much assistance does the patient require from the helper? Only set-up of equipment - such as plac ing it within reach of the patient or emptying a device - to maintain either satisfactory voiding pat tern or managing an external device, such as an absorbent pad, ileal device, or catheter BLADDER MANAGEMENT - SCORE: 5-SUP BOWEL MANAGEMENT: Activity did not occur on this shift BOWEL MANAGEMENT - SCORE: 7-IND TRANSFERS: BED, CHAIR, WHEELCHAIR: TRANSFERS: BED, CHAIR, WHEELCHAIR - STEP 1: Does the patient require assistance of a person or device, or need extra time with bed, chair, or whe elchair transfers? Yes. TRANSFERS: BED, CHAIR, WHEELCHAIR - STEP 2: Does the patient require the assistance of a helper? Yes. TRANSFERS: BED, CHAIR, WHEELCHAIR - STEP 3: How much assistance does the patient require from the helper? Steadying/guiding assistance TRANSFERS: BED, CHAIR, WHEELCHAIR - SCORE: 4-MIN TRANSFERS: TOILET: TRANSFERS: TOILET - STEP 1: Does the patient require the assistance of a person or device, or need extra time with toilet transfe rs? Yes. TRANSFERS: TOILET - STEP 2: Does the patient require the assistance of a helper? Yes. TRANSFERS: TOILET - STEP 3: How much assistance does the patient require from the helper? Only supervision, cuing, coaxing, OR he lp to set out transfer equipment or to lock brakes and/or lift foot rests TRANSFERS: TOILET - SCORE: 5-SUP TRANSFERS: SHOWER: Activity did not occur on this shift TRANSFERS: SHOWER - SCORE: 0-UNK TRANSFERS: TUB: Activity did not occur on this shift TRANSFERS: TUB - SCORE: 0-UNK LOCOMOTION: WALK: Activity did not occur on this shift LOCOMOTION: WALK - SCORE: 0-UNK LOCOMOTION: WHEELCHAIR: Activity did not occur on this shift LOCOMOTION: WHEELCHAIR - SCORE: 0-UNK COMPREHENSION: COMPREHENSION: TYPE: Both COMPREHENSION - STEP 1: Does the patient require help from a person or device, or need extra time to understand complex and a bstract ideas (such as current events, finances, discharge planning, medical issues, relationships, e tc)? No. COMPREHENSION - STEP 2: Does the patient need extra time, require an assistive device (such as glasses for visual comprehensi on or a hearing aid for auditory comprehension) or does s/he have mild difficulty understanding compl ex and abstract information? Yes. COMPREHENSION - SCORE: 6-ALEXANDER EXPRESSION EXPRESSION: TYPE: Both EXPRESSION - STEP 1: Does the patient require help from a person or device, or need extra time expressing complex and abst ract ideas (such as current events, finances, discharge planning, medical issues, relationships, etc) ? No. EXPRESSION - STEP 2: Does the patient need extra time, require an assistive device (such as augmentive communication syste m or a communication board), OR does s/he have mild difficulty expressing complex and abstract ideas (including mild dysarthria or mild word-find problems)? Yes. EXPRESSION - SCORE: 6-ALEXANDER SOCIAL INTERACTION: SOCIAL INTERACTION - STEP 1: Does the patient require a helper to interact with others in social and therapeutic situations? No. SOCIAL INTERACTION - STEP 2: Does the patient need extra time in social situations, OR does s/he interact with staff, other patien ts, and family members ONLY in structured environments, OR does s/he require medication for social in teraction? Yes, patient needs extra time SOCIAL INTERACTION - SCORE: 6-ALEXANDER PROBLEM SOLVING: PROBLEM SOLVING - STEP 1: Does the patient need help from a person or device, or need extra time to solve complex problems such as managing a checking account or confronting interpersonal problems? No. PROBLEM SOLVING - STEP 2: Does the patient require extra time to make decisions or solve problems, OR does s/he have slight dif ficulty reading, initiating, or self-correcting in unfamiliar situations? Yes, patient needs extra ti me. PROBLEM SOLVING - SCORE: 6-ALEXANDER MEMORY: MEMORY - STEP 1: Does the patient need help from a person or device, or need extra time to remember frequently encount ered people, daily routines, and executing requests? No. MEMORY - STEP 2: Does the patient have slight difficulty recognizing frequently encountered people, daily routines, or executing requests without the need for repetition or using self-initiated or environmental cues to remember? Yes. MEMORY - SCORE: 6-ALEXANDER
[2018-09-23 06:14] LABS: Absolute Lymphocytes (CBC) 1.2 K/uL (0.7-4.9); Basophils % 1.1 % (0-1.3); Hematocrit 24.2 % (36.0-45.0); Lymphocytes % 19.9 % (15.3-44.8); MPV 6.8 fL (7.6-11.3); RBC Red Blood Cell Count 2.59 M/uL (3.86-4.86)
[2018-09-23 06:36] LABS: Magnesium 1.9 mg/dL (1.8-2.4); Phosphorus 3.4 mg/dL (2.5-4.9); Potassium 3.5 mmol/L (3.5-5.1)
[2018-09-23] MEDS: INSULIN -REGULAR HUMAN 50 UNIT/0.5 ML ML SQ SCH ×4 (07:30→20:23)
[2018-09-23] MEDS: PROMOD 30 ML DOSE PO SCH ×2 (08:00→20:00)
[2018-09-23] MEDS: HEPARIN 5000 UNIT/ML 1 ML VIAL SQ SCH ×2 (08:04→21:00)
[2018-09-23] MEDS: LACTOBACILLUS/ACIDOPHILUS TAB PO SCH ×2 (08:33→20:20)
[2018-09-23] MEDS: TIOTROPIUM 5 SPRAYS/INHALER IH SCH (08:33)
[2018-09-23] MEDS: ASPIRIN EC 81 MG TAB PO SCH (08:33)
[2018-09-23] MEDS: FERROUS SULFATE 325 MG TAB PO SCH ×2 (08:33→20:20)
[2018-09-23] MEDS: AMIODARONE HCL 200 MG TAB PO SCH (08:34)
[2018-09-23] MEDS: METOPROLOL TAR 50 MG TAB PO SCH ×2 (08:34→20:21)
[2018-09-23] MEDS: VITAMIN D 400 UNIT TAB PO SCH (08:34)
[2018-09-23] MEDS: INSULIN GLARGINE 100 UNITS/ML SQ SCH (08:35)
[2018-09-23] MEDS: FUROSEMIDE 20 MG TABLET PO SCH ×2 (08:35→17:07)
[2018-09-23] MEDS: ISOSORBIDE MONO SR 30 MG TAB PO SCH (08:37)
[2018-09-23] MEDS: ARFORMOTEROL TARTRATE 15 MCG/2 ML VIAL.NEB NEB SCH ×2 (09:04→20:00)
--- NOTE | 2018-09-23 10:03 | FAST ---
SHIFT START DATE/TIME: 09/23/2018 07:00 (CDT) SHIFT END DATE/TIME: 09/23/2018 19:00 (CDT) NAME SUSANA YAO DATE OF : 1930 DATE OF ADMISSION: 09/20/2018 15:58 (CDT) PHONE: AGE: 88 SSN# [id number] GENDER: Female ENCOUNTER PHYSICIAN: Dr. 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 EATING: EATING - STEP 1: Does the patient require the assistance of a person or device, or need extra time when eating? Yes. EATING - STEP 2: Does the patient require the assistance of a helper? No, patient only requires an assistive device, O R s/he takes more than reasonable time to eat, OR there is a safety concern, OR s/he requires modifie d food consistency EATING - SCORE: 6-ALEXANDER GROOMING: Activity did not occur on this shift GROOMING - SCORE: 0-UNK BATHING: Activity did not occur on this shift BATHING - SCORE: 0-UNK DRESSING - UPPER BODY: Activity did not occur on this shift ARTICLES SCORE Total number of steps: 0 DRESSING - UPPER BODY - SCORE: 0-UNK DRESSING - LOWER BODY: Activity did not occur on this shift ARTICLES SCORE Total number of steps: 0 DRESSING - LOWER BODY - SCORE: 0-UNK TOILETING: TOILETING - STEP 1: Does the patient require the assistance of a person or device, or need extra time with toileting? Yes . TOILETING - STEP 2: Does the patient require the assistance of a helper? Yes. TOILETING - STEP 3: How much assistance does the patient require from the helper? Hands-on assistance from the helper TOILETING - STEP 4: Of the 3 tasks: 1) Adjusting clothing prior to use, 2) Cleansing of perineal area, 3) Adjusting clot carli after use; How many tasks does the patient perform WITHOUT assistance of the helper? Two tasks TOILETING - SCORE: 3-MOD BLADDER MANAGEMENT: BLADDER MANAGEMENT - STEP 1: Does the patient control the bladder completely and intentionally without equipment or devices or med ications, and is always continent? No. BLADDER MANAGEMENT - STEP 2: Does the patient require the assistance of a helper? No, patient requires and independently uses an a ssistive device, such as a urinal, bedpan, bedside commode, catheter, absorbent pad, or collecting de vice BLADDER MANAGEMENT - SCORE: 6-ALEXANDER BOWEL MANAGEMENT: Activity did not occur on this shift BOWEL MANAGEMENT - SCORE: 7-IND TRANSFERS: BED, CHAIR, WHEELCHAIR: TRANSFERS: BED, CHAIR, WHEELCHAIR - STEP 1: Does the patient require assistance of a person or device, or need extra time with bed, chair, or whe elchair transfers? Yes. TRANSFERS: BED, CHAIR, WHEELCHAIR - STEP 2: Does the patient require the assistance of a helper? Yes. TRANSFERS: BED, CHAIR, WHEELCHAIR - STEP 3: How much assistance does the patient require from the helper? Steadying/guiding assistance TRANSFERS: BED, CHAIR, WHEELCHAIR - SCORE: 4-MIN TRANSFERS: TOILET: TRANSFERS: TOILET - STEP 1: Does the patient require the assistance of a person or device, or need extra time with toilet transfe rs? Yes. TRANSFERS: TOILET - STEP 2: Does the patient require the assistance of a helper? Yes. TRANSFERS: TOILET - STEP 3: How much assistance does the patient require from the helper? Patient performs half or more of the tr ansferring tasks TRANSFERS: TOILET - STEP 4: Does the patient need only incidental help such as contact guard or steadying during toilet transfer? No. Patient needs more than incidental help TRANSFERS: TOILET - SCORE: 3-MOD TRANSFERS: SHOWER: Activity did not occur on this shift TRANSFERS: SHOWER - SCORE: 0-UNK TRANSFERS: TUB: Activity did not occur on this shift TRANSFERS: TUB - SCORE: 0-UNK LOCOMOTION: WALK: Activity did not occur on this shift LOCOMOTION: WALK - SCORE: 0-UNK LOCOMOTION: WHEELCHAIR: Activity did not occur on this shift LOCOMOTION: WHEELCHAIR - SCORE: 0-UNK COMPREHENSION: COMPREHENSION: TYPE: Both COMPREHENSION - STEP 1: Does the patient require help from a person or device, or need extra time to understand complex and a bstract ideas (such as current events, finances, discharge planning, medical issues, relationships, e tc)? No. COMPREHENSION - STEP 2: Does the patient need extra time, require an assistive device (such as glasses for visual comprehensi on or a hearing aid for auditory comprehension) or does s/he have mild difficulty understanding compl ex and abstract information? Yes. COMPREHENSION - SCORE: 6-ALEXANDER EXPRESSION EXPRESSION: TYPE: Both EXPRESSION - STEP 1: Does the patient require help from a person or device, or need extra time expressing complex and abst ract ideas (such as current events, finances, discharge planning, medical issues, relationships, etc) ? No. EXPRESSION - STEP 2: Does the patient need extra time, require an assistive device (such as augmentive communication syste m or a communication board), OR does s/he have mild difficulty expressing complex and abstract ideas (including mild dysarthria or mild word-find problems)? Yes. EXPRESSION - SCORE: 6-ALEXANDER SOCIAL INTERACTION: SOCIAL INTERACTION - STEP 1: Does the patient require a helper to interact with others in social and therapeutic situations? No. SOCIAL INTERACTION - STEP 2: Does the patient need extra time in social situations, OR does s/he interact with staff, other patien ts, and family members ONLY in structured environments, OR does s/he require medication for social in teraction? Yes, patient needs extra time SOCIAL INTERACTION - SCORE: 6-ALEXANDER PROBLEM SOLVING: PROBLEM SOLVING - STEP 1: Does the patient need help from a person or device, or need extra time to solve complex problems such as managing a checking account or confronting interpersonal problems? No. PROBLEM SOLVING - STEP 2: Does the patient require extra time to make decisions or solve problems, OR does s/he have slight dif ficulty reading, initiating, or self-correcting in unfamiliar situations? Yes, patient needs extra ti me. PROBLEM SOLVING - SCORE: 6-ALEXANDER MEMORY: MEMORY - STEP 1: Does the patient need help from a person or device, or need extra time to remember frequently encount ered people, daily routines, and executing requests? No. MEMORY - STEP 2: Does the patient have slight difficulty recognizing frequently encountered people, daily routines, or executing requests without the need for repetition or using self-initiated or environmental cues to remember? Yes. MEMORY - SCORE: 6-ALEXANDER SIGNATURE PANEL: The following modified sections: Eating - Score, Grooming - Score, Bathing - Score, Dressing - Upper Body - Score, Dressing - Lower Body - Score, Toileting - Score, Bladder Management - Score, Bowel Man agement - Score, Transfers: Bed, Chair, Wheelchair - Score, Transfers: Toilet - Score, Transfers: Nimo wer - Score, Transfers: Tub - Score, Locomotion: Walk - Score, Locomotion: Wheelchair - Score, Compre hension - Score, Expression - Score, Social Interaction - Score, Problem Solving - Score, Memory - Sc ore were [electronically] signed by Lamonte Pratt on Sat Sep 23 2018 10:02:40 GMT-0500 (Central Daylight Time)
[2018-09-23] MEDS: DOCUSATE NA 100 MG CAP PO PRN (15:02)
[2018-09-23] MEDS: SERTRALINE HCL 50 MG TAB PO SCH (20:20)
[2018-09-23] MEDS: SENOSIDES 8.6 MG TAB PO PRN (20:20)
[2018-09-23] MEDS: LISINOPRIL 10 MG TAB PO SCH (20:21)
[2018-09-24] MEDS: HEPARIN 5000 UNIT/ML 1 ML VIAL SQ SCH ×2 (05:55→21:00)
[2018-09-24] MEDS: INSULIN -REGULAR HUMAN 50 UNIT/0.5 ML ML SQ SCH ×4 (07:30→20:50)
[2018-09-24] MEDS: PROMOD 30 ML DOSE PO SCH ×2 (08:00→20:00)
[2018-09-24] MEDS: FERROUS SULFATE 325 MG TAB PO SCH ×2 (08:00→20:00)
[2018-09-24] MEDS: TIOTROPIUM 5 SPRAYS/INHALER IH SCH (08:34)
[2018-09-24] MEDS: INSULIN GLARGINE 100 UNITS/ML SQ SCH (08:35)
[2018-09-24] MEDS: LACTOBACILLUS/ACIDOPHILUS TAB PO SCH ×2 (08:42→20:48)
[2018-09-24] MEDS: ASPIRIN EC 81 MG TAB PO SCH (08:42)
[2018-09-24] MEDS: AMIODARONE HCL 200 MG TAB PO SCH (08:42)
[2018-09-24] MEDS: ISOSORBIDE MONO SR 30 MG TAB PO SCH (08:42)
[2018-09-24] MEDS: METOPROLOL TAR 50 MG TAB PO SCH ×2 (08:43→20:48)
[2018-09-24] MEDS: VITAMIN D 400 UNIT TAB PO SCH (08:43)
[2018-09-24] MEDS: FUROSEMIDE 20 MG TABLET PO SCH ×2 (08:43→17:03)
[2018-09-24] MEDS: ARFORMOTEROL TARTRATE 15 MCG/2 ML VIAL.NEB NEB SCH ×2 (09:12→20:00)
--- NOTE | 2018-09-24 11:21 | FAST ---
SHIFT START DATE/TIME: 09/24/2018 07:00 (CDT) SHIFT END DATE/TIME: 09/24/2018 19:00 (CDT) NAME SUSANA YAO DATE OF : 1930 DATE OF ADMISSION: 09/20/2018 15:58 (CDT) PHONE: AGE: 88 N# [id number] GENDER: Female ENCOUNTER PHYSICIAN: Dr. 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 EATING: EATING - STEP 1: Does the patient require the assistance of a person or device, or need extra time when eating? Yes. EATING - STEP 2: Does the patient require the assistance of a helper? Yes. EATING - STEP 3: Does the patient perform half or more of the eating tasks? Yes. EATING - STEP 4: Does the patient need only supervision, cuing, coaxing OR help to apply an orthosis OR help to cut fo od, open containers, pour liquids, or butter bread? Yes. EATING - SCORE: 5-SUP GROOMING: Comb/brush hair Oral care Wash, rinse, and dry face Wash, rinse, and dry hands GROOMING - STEP 1: Does the patient require the assistance of a person or device, or need extra time when grooming? Yes. GROOMING - STEP 2: Does the patient require the assistance of a helper? No. The patient only requires an assistive devic e, OR takes more than reasonable time to groom, OR there is a concern for safety as the patient groom s GROOMING - SCORE: 6-ALEXANDER BATHING: Activity did not occur on this shift BATHING - SCORE: 0-UNK DRESSING - UPPER BODY: Activity did not occur on this shift ARTICLES SCORE Total number of steps: 0 DRESSING - UPPER BODY - SCORE: 0-UNK DRESSING - LOWER BODY: Activity did not occur on this shift ARTICLES SCORE Total number of steps: 0 DRESSING - LOWER BODY - SCORE: 0-UNK TOILETING: TOILETING - STEP 1: Does the patient require the assistance of a person or device, or need extra time with toileting? Yes . TOILETING - STEP 2: Does the patient require the assistance of a helper? Yes. TOILETING - STEP 3: How much assistance does the patient require from the helper? Hands-on assistance from the helper TOILETING - STEP 4: Of the 3 tasks: 1) Adjusting clothing prior to use, 2) Cleansing of perineal area, 3) Adjusting clot carli after use; How many tasks does the patient perform WITHOUT assistance of the helper? Three tasks with steadying assistance from the helper TOILETING - SCORE: 4-MIN BLADDER MANAGEMENT: BLADDER MANAGEMENT - STEP 1: Does the patient control the bladder completely and intentionally without equipment or devices or med ications, and is always continent? No. BLADDER MANAGEMENT - STEP 2: Does the patient require the assistance of a helper? No, patient requires and independently uses an a ssistive device, such as a urinal, bedpan, bedside commode, catheter, absorbent pad, or collecting de vice BLADDER MANAGEMENT - SCORE: 6-ALEXANDER BOWEL MANAGEMENT: Activity did not occur on this shift BOWEL MANAGEMENT - SCORE: 7-IND TRANSFERS: BED, CHAIR, WHEELCHAIR: TRANSFERS: BED, CHAIR, WHEELCHAIR - STEP 1: Does the patient require assistance of a person or device, or need extra time with bed, chair, or whe elchair transfers? Yes. TRANSFERS: BED, CHAIR, WHEELCHAIR - STEP 2: Does the patient require the assistance of a helper? Yes. TRANSFERS: BED, CHAIR, WHEELCHAIR - STEP 3: How much assistance does the patient require from the helper? Steadying/guiding assistance TRANSFERS: BED, CHAIR, WHEELCHAIR - SCORE: 4-MIN TRANSFERS: TOILET: TRANSFERS: TOILET - STEP 1: Does the patient require the assistance of a person or device, or need extra time with toilet transfe rs? Yes. TRANSFERS: TOILET - STEP 2: Does the patient require the assistance of a helper? Yes. TRANSFERS: TOILET - STEP 3: How much assistance does the patient require from the helper? Patient performs half or more of the tr ansferring tasks TRANSFERS: TOILET - STEP 4: Does the patient need only incidental help such as contact guard or steadying during toilet transfer? Yes. TRANSFERS: TOILET - SCORE: 4-MIN TRANSFERS: SHOWER: Activity did not occur on this shift TRANSFERS: SHOWER - SCORE: 0-UNK TRANSFERS: TUB: Activity did not occur on this shift TRANSFERS: TUB - SCORE: 0-UNK LOCOMOTION: WALK: Activity did not occur on this shift LOCOMOTION: WALK - SCORE: 0-UNK LOCOMOTION: WHEELCHAIR: Activity did not occur on this shift LOCOMOTION: WHEELCHAIR - SCORE: 0-UNK COMPREHENSION: COMPREHENSION: TYPE: Both COMPREHENSION - STEP 1: Does the patient require help from a person or device, or need extra time to understand complex and a bstract ideas (such as current events, finances, discharge planning, medical issues, relationships, e tc)? No. COMPREHENSION - STEP 2: Does the patient need extra time, require an assistive device (such as glasses for visual comprehensi on or a hearing aid for auditory comprehension) or does s/he have mild difficulty understanding compl ex and abstract information? Yes. COMPREHENSION - SCORE: 6-ALEXANDER EXPRESSION EXPRESSION: TYPE: Both EXPRESSION - STEP 1: Does the patient require help from a person or device, or need extra time expressing complex and abst ract ideas (such as current events, finances, discharge planning, medical issues, relationships, etc) ? No. EXPRESSION - STEP 2: Does the patient need extra time, require an assistive device (such as augmentive communication syste m or a communication board), OR does s/he have mild difficulty expressing complex and abstract ideas (including mild dysarthria or mild word-find problems)? Yes. EXPRESSION - SCORE: 6-ALEXANDER SOCIAL INTERACTION: SOCIAL INTERACTION - STEP 1: Does the patient require a helper to interact with others in social and therapeutic situations? No. SOCIAL INTERACTION - STEP 2: Does the patient need extra time in social situations, OR does s/he interact with staff, other patien ts, and family members ONLY in structured environments, OR does s/he require medication for social in teraction? Yes, patient needs extra time SOCIAL INTERACTION - SCORE: 6-ALEXANDER PROBLEM SOLVING: PROBLEM SOLVING - STEP 1: Does the patient need help from a person or device, or need extra time to solve complex problems such as managing a checking account or confronting interpersonal problems? No. PROBLEM SOLVING - STEP 2: Does the patient require extra time to make decisions or solve problems, OR does s/he have slight dif ficulty reading, initiating, or self-correcting in unfamiliar situations? Yes, patient needs extra ti me. PROBLEM SOLVING - SCORE: 6-ALEXANDER MEMORY: MEMORY - STEP 1: Does the patient need help from a person or device, or need extra time to remember frequently encount ered people, daily routines, and executing requests? No. MEMORY - STEP 2: Does the patient have slight difficulty recognizing frequently encountered people, daily routines, or executing requests without the need for repetition or using self-initiated or environmental cues to remember? Yes. MEMORY - SCORE: 6-ALEXANDER SIGNATURE PANEL: The following modified sections: Eating - Score, Grooming - Score, Bathing - Score, Dressing - Upper Body - Score, Dressing - Lower Body - Score, Toileting - Score, Bladder Management - Score, Bowel Man agement - Score, Transfers: Bed, Chair, Wheelchair - Score, Transfers: Toilet - Score, Transfers: Nimo wer - Score, Transfers: Tub - Score, Locomotion: Walk - Score, Locomotion: Wheelchair - Score, Compre hension - Score, Expression - Score, Social Interaction - Score, Problem Solving - Score, Memory - Sc ore were [electronically] signed by Lamonte Pratt on TueSep 24 2018 11:19:39 T-0500 (Central Daylight Time)
[2018-09-24] MEDS: LISINOPRIL 10 MG TAB PO SCH (20:49)
[2018-09-24] MEDS: SERTRALINE HCL 50 MG TAB PO SCH (20:50)
[2018-09-24] MEDS ORDERED: METOCLOPRAMIDE 5 MG TAB PO ONE (23:23)
[2018-09-24] MEDS ORDERED: METOCLOPRAMIDE 10MG/10ML UCUP PO ONE ×2 (23:23→23:48)
[2018-09-25] MEDS ORDERED: METOCLOPRAMIDE 5 MG TAB PO ONE (01:00)
--- NOTE | 2018-09-25 02:03 | FAST ---
SHIFT START DATE/TIME: 09/24/2018 19:00 (CDT) SHIFT END DATE/TIME: 09/25/2018 07:00 (CDT) NAME SUSANA YAO DATE OF : 1930 DATE OF ADMISSION: 09/20/2018 15:58 (CDT) PHONE: AGE: 88 SSN# [id number] GENDER: Female ENCOUNTER PHYSICIAN: Dr. 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 EATING: Activity did not occur on this shift EATING - SCORE: 0-UNK GROOMING: Activity did not occur on this shift GROOMING - SCORE: 0-UNK BATHING: Activity did not occur on this shift BATHING - SCORE: 0-UNK DRESSING - UPPER BODY: Patient is not dressing in public clothing ARTICLES SCORE Total number of steps: 0 DRESSING - UPPER BODY - SCORE: 0-UNK DRESSING - LOWER BODY: Patient is not dressing in public clothing ARTICLES SCORE Total number of steps: 0 DRESSING - LOWER BODY - SCORE: 0-UNK TOILETING: TOILETING - STEP 1: Does the patient require the assistance of a person or device, or need extra time with toileting? Yes . TOILETING - STEP 2: Does the patient require the assistance of a helper? Yes. TOILETING - STEP 3: How much assistance does the patient require from the helper? Hands-on assistance from the helper TOILETING - STEP 4: Of the 3 tasks: 1) Adjusting clothing prior to use, 2) Cleansing of perineal area, 3) Adjusting clot carli after use; How many tasks does the patient perform WITHOUT assistance of the helper? Two tasks TOILETING - SCORE: 3-MOD BLADDER MANAGEMENT: BLADDER MANAGEMENT - STEP 1: Does the patient control the bladder completely and intentionally without equipment or devices or med ications, and is always continent? No. BLADDER MANAGEMENT - STEP 2: Does the patient require the assistance of a helper? Yes. BLADDER MANAGEMENT - STEP 3: How much assistance does the patient require from the helper? Only supervision, stand-by, cuing, or c oaxing BLADDER MANAGEMENT - SCORE: 5-SUP BOWEL MANAGEMENT: BOWEL MANAGEMENT - STEP 1: Does the patient control bowels completely and intentionally without equipment devices or medications AND is always continent? No. BOWEL MANAGEMENT - STEP 2: Does the patient require the assistance of a helper? No, patient requires medication for control such as stool softeners, suppositories, laxatives, enemas, or OTC medications BOWEL MANAGEMENT - SCORE: 6-ALEXANDER TRANSFERS: BED, CHAIR, WHEELCHAIR: TRANSFERS: BED, CHAIR, WHEELCHAIR - STEP 1: Does the patient require assistance of a person or device, or need extra time with bed, chair, or whe elchair transfers? Yes. TRANSFERS: BED, CHAIR, WHEELCHAIR - STEP 2: Does the patient require the assistance of a helper? Yes. TRANSFERS: BED, CHAIR, WHEELCHAIR - STEP 3: How much assistance does the patient require from the helper? Steadying/guiding assistance TRANSFERS: BED, CHAIR, WHEELCHAIR - SCORE: 4-MIN TRANSFERS: TOILET: TRANSFERS: TOILET - STEP 1: Does the patient require the assistance of a person or device, or need extra time with toilet transfe rs? Yes. TRANSFERS: TOILET - STEP 2: Does the patient require the assistance of a helper? Yes. TRANSFERS: TOILET - STEP 3: How much assistance does the patient require from the helper? Only supervision, cuing, coaxing, OR he lp to set out transfer equipment or to lock brakes and/or lift foot rests TRANSFERS: TOILET - SCORE: 5-SUP TRANSFERS: SHOWER: Activity did not occur on this shift TRANSFERS: SHOWER - SCORE: 0-UNK TRANSFERS: TUB: Activity did not occur on this shift TRANSFERS: TUB - SCORE: 0-UNK LOCOMOTION: WALK: Activity did not occur on this shift LOCOMOTION: WALK - SCORE: 0-UNK LOCOMOTION: WHEELCHAIR: Activity did not occur on this shift LOCOMOTION: WHEELCHAIR - SCORE: 0-UNK COMPREHENSION: COMPREHENSION: TYPE: Both COMPREHENSION - STEP 1: Does the patient require help from a person or device, or need extra time to understand complex and a bstract ideas (such as current events, finances, discharge planning, medical issues, relationships, e tc)? No. COMPREHENSION - STEP 2: Does the patient need extra time, require an assistive device (such as glasses for visual comprehensi on or a hearing aid for auditory comprehension) or does s/he have mild difficulty understanding compl ex and abstract information? Yes. COMPREHENSION - SCORE: 6-ALEXANDER EXPRESSION EXPRESSION: TYPE: Both EXPRESSION - STEP 1: Does the patient require help from a person or device, or need extra time expressing complex and abst ract ideas (such as current events, finances, discharge planning, medical issues, relationships, etc) ? No. EXPRESSION - STEP 2: Does the patient need extra time, require an assistive device (such as augmentive communication syste m or a communication board), OR does s/he have mild difficulty expressing complex and abstract ideas (including mild dysarthria or mild word-find problems)? Yes. EXPRESSION - SCORE: 6-ALEXANDER SOCIAL INTERACTION: SOCIAL INTERACTION - STEP 1: Does the patient require a helper to interact with others in social and therapeutic situations? No. SOCIAL INTERACTION - STEP 2: Does the patient need extra time in social situations, OR does s/he interact with staff, other patien ts, and family members ONLY in structured environments, OR does s/he require medication for social in teraction? Yes, patient needs extra time SOCIAL INTERACTION - SCORE: 6-ALEXANDER PROBLEM SOLVING: PROBLEM SOLVING - STEP 1: Does the patient need help from a person or device, or need extra time to solve complex problems such as managing a checking account or confronting interpersonal problems? Yes. PROBLEM SOLVING - STEP 2: Does the patient solve basic routine problems half or more of the time? Yes. PROBLEM SOLVING - STEP 3: How often does the patient need help to solve basic routine problems? 10%-24% of the time PROBLEM SOLVING - SCORE: 4-MIN MEMORY: MEMORY - STEP 1: Does the patient need help from a person or device, or need extra time to remember frequently encount ered people, daily routines, and executing requests? No. MEMORY - STEP 2: Does the patient have slight difficulty recognizing frequently encountered people, daily routines, or executing requests without the need for repetition or using self-initiated or environmental cues to remember? Yes. MEMORY - SCORE: 6-ALEXANDER SIGNATURE PANEL: The following modified sections: Eating - Score, Grooming - Score, Dressing - Upper Body - Score, Ron ssing - Lower Body - Score, Toileting - Score, Bladder Management - Score, Bowel Management - Score, Transfers: Bed, Chair, Wheelchair - Score, Transfers: Toilet - Score, Transfers: Shower - Score, Mirza sfers: Tub - Score, Locomotion: Walk - Score, Locomotion: Wheelchair - Score, Comprehension - Score, Expression - Score, Social Interaction - Score, Problem Solving - Score, Memory - Score were [electro nically] signed by Vannessa Anna CNA on TueSep 25 2018 02:02:53 GMT-0500 (Central Daylight Time)
[2018-09-25] MEDS: INSULIN -REGULAR HUMAN 50 UNIT/0.5 ML ML SQ SCH ×4 (07:16→21:11)
[2018-09-25] MEDS: HEPARIN 5000 UNIT/ML 1 ML VIAL SQ SCH ×2 (07:31→21:02)
[2018-09-25] MEDS: ARFORMOTEROL TARTRATE 15 MCG/2 ML VIAL.NEB NEB SCH ×2 (07:55→21:00)
[2018-09-25] MEDS: FERROUS SULFATE 325 MG TAB PO SCH ×2 (08:00→20:00)
[2018-09-25] MEDS: PROMOD 30 ML DOSE PO SCH ×2 (08:00→20:00)
[2018-09-25] MEDS: ISOSORBIDE MONO SR 30 MG TAB PO SCH (08:26)
[2018-09-25] MEDS: LACTOBACILLUS/ACIDOPHILUS TAB PO SCH ×2 (08:26→21:02)
[2018-09-25] MEDS: VITAMIN D 400 UNIT TAB PO SCH (08:26)
[2018-09-25] MEDS: AMIODARONE HCL 200 MG TAB PO SCH (08:26)
[2018-09-25] MEDS: FUROSEMIDE 20 MG TABLET PO SCH ×2 (08:27→17:00)
[2018-09-25] MEDS: ASPIRIN EC 81 MG TAB PO SCH (08:28)
[2018-09-25] MEDS: METOPROLOL TAR 50 MG TAB PO SCH ×2 (08:28→21:03)
[2018-09-25] MEDS: INSULIN GLARGINE 100 UNITS/ML SQ SCH (08:31)
[2018-09-25] MEDS: TIOTROPIUM 5 SPRAYS/INHALER IH SCH (08:32)
[2018-09-25] MEDS: predniSONE 5 MG TAB PO SCH (12:27)
[2018-09-25] MEDS ORDERED: PROMETHAZINE 25 MG TABLET PO PRN (13:26)
[2018-09-25] MEDS: METOCLOPRAMIDE 5 MG TAB PO SCH ×3 (13:39→21:03)
--- NOTE | 2018-09-25 15:31 | FAST ---
ENCOUNTER DATE AND TIME: 09/25/2018 08:00 (CDT) NAME SUSANA YAO DATE OF : 1930 DATE OF ADMISSION: 09/20/2018 15:58 (CDT) PHONE: AGE: 88 SSN# [id number] GENDER: Female ENCOUNTER PHYSICIAN: Dr. 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 EATING: Activity did not occur on this shift EATING - SCORE: 0-UNK GROOMING: Activity did not occur on this shift GROOMING - SCORE: 0-UNK BATHING: Activity did not occur on this shift BATHING - SCORE: 0-UNK DRESSING - UPPER BODY: Activity did not occur on this shift Patient is not dressing in public clothing ARTICLES SCORE Total number of steps: 0 DRESSING - UPPER BODY - SCORE: 0-UNK DRESSING - LOWER BODY: Activity did not occur on this shift Patient is not dressing in public clothing ARTICLES SCORE Total number of steps: 0 DRESSING - LOWER BODY - SCORE: 0-UNK TOILETING: Activity did not occur on this shift TOILETING - SCORE: 0-UNK BLADDER MANAGEMENT: Activity did not occur on this shift BLADDER MANAGEMENT - SCORE: 7-IND BOWEL MANAGEMENT: Activity did not occur on this shift BOWEL MANAGEMENT - SCORE: 7-IND TRANSFERS: BED, CHAIR, WHEELCHAIR: TRANSFERS: BED, CHAIR, WHEELCHAIR - STEP 1: Does the patient require assistance of a person or device, or need extra time with bed, chair, or whe elchair transfers? Yes. TRANSFERS: BED, CHAIR, WHEELCHAIR - STEP 2: Does the patient require the assistance of a helper? Yes. TRANSFERS: BED, CHAIR, WHEELCHAIR - STEP 3: How much assistance does the patient require from the helper? Only supervision TRANSFERS: BED, CHAIR, WHEELCHAIR - SCORE: 5-SUP TRANSFERS: TOILET: Activity did not occur on this shift TRANSFERS: TOILET - SCORE: 0-UNK TRANSFERS: SHOWER: Activity did not occur on this shift TRANSFERS: SHOWER - SCORE: 0-UNK TRANSFERS: TUB: Activity did not occur on this shift TRANSFERS: TUB - SCORE: 0-UNK LOCOMOTION: WALK: LOCOMOTION: WALK - STEP 1: Does the patient need help from a person or device, or need extra time to walk 150 feet? Yes. LOCOMOTION: WALK - STEP 2: How much assistance does the patient require to walk a minimum of 150 feet? Patient walks less than 1 50 feet - but more than 50 feet - with the assistance of only one helper LOCOMOTION: WALK - SCORE: 2-MAX LOCOMOTION: WHEELCHAIR: Activity did not occur on this shift LOCOMOTION: WHEELCHAIR - SCORE: 0-UNK LOCOMOTION: STAIRS: Activity did not occur on this shift LOCOMOTION: STAIRS - SCORE: 0-UNK COMPREHENSION: COMPREHENSION - SCORE: 0-UNK EXPRESSION EXPRESSION - SCORE: 0-UNK SOCIAL INTERACTION: SOCIAL INTERACTION - SCORE: 0-UNK PROBLEM SOLVING: PROBLEM SOLVING - SCORE: 0-UNK MEMORY: MEMORY - SCORE: 0-UNK SIGNATURE PANEL: The following modified sections: Transfers: Bed, Chair, Wheelchair - Score, Transfers: Toilet - Score , Locomotion: Walk - Score, Locomotion: Wheelchair - Score, Locomotion: Stairs - Score were [electron ically] signed by Can Justin PT on TueSep 25 2018 15:30:45 T-0500 (Central Daylight Time)
[2018-09-25] MEDS: SERTRALINE HCL 50 MG TAB PO SCH (21:03)
[2018-09-25] MEDS: LISINOPRIL 10 MG TAB PO SCH (22:00)
--- NOTE | 2018-09-26 04:51 | FAST ---
SHIFT START DATE/TIME: 09/25/2018 19:00 (CDT) SHIFT END DATE/TIME: 09/26/2018 07:00 (CDT) NAME SUSANA YAO DATE OF : 1930 DATE OF ADMISSION: 09/20/2018 15:58 (CDT) PHONE: AGE: 88 SSN# [id number] GENDER: Female ENCOUNTER PHYSICIAN: Dr. 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 EATING: Activity did not occur on this shift EATING - SCORE: 0-UNK GROOMING: Activity did not occur on this shift GROOMING - SCORE: 0-UNK BATHING: Activity did not occur on this shift BATHING - SCORE: 0-UNK DRESSING - UPPER BODY: Activity did not occur on this shift ARTICLES SCORE Total number of steps: 0 DRESSING - UPPER BODY - SCORE: 0-UNK DRESSING - LOWER BODY: Activity did not occur on this shift ARTICLES SCORE Total number of steps: 0 DRESSING - LOWER BODY - SCORE: 0-UNK TOILETING: TOILETING - SCORE: 0-UNK BLADDER MANAGEMENT: BLADDER MANAGEMENT - STEP 1: Does the patient control the bladder completely and intentionally without equipment or devices or med ications, and is always continent? No. BLADDER MANAGEMENT - STEP 2: Does the patient require the assistance of a helper? Yes. BLADDER MANAGEMENT - STEP 3: How much assistance does the patient require from the helper? Only supervision, stand-by, cuing, or c oaxing BLADDER MANAGEMENT - SCORE: 5-SUP BLADDER MANAGEMENT - FREQUENCY OF ACCIDENTS: BLADDER MANAGEMENT(FA) - STEP 1: How many accidents has the patient had during the current shift? 0 BOWEL MANAGEMENT: Activity did not occur on this shift BOWEL MANAGEMENT - SCORE: 7-IND BOWEL MANAGEMENT - FREQUENCY OF ACCIDENTS: BOWEL MANAGEMENT(FA) - STEP 1: How many accidents has the patient had during the current shift? 0 TRANSFERS: BED, CHAIR, WHEELCHAIR: TRANSFERS: BED, CHAIR, WHEELCHAIR - STEP 1: Does the patient require assistance of a person or device, or need extra time with bed, chair, or whe elchair transfers? Yes. TRANSFERS: BED, CHAIR, WHEELCHAIR - STEP 2: Does the patient require the assistance of a helper? Yes. TRANSFERS: BED, CHAIR, WHEELCHAIR - STEP 3: How much assistance does the patient require from the helper? Steadying/guiding assistance TRANSFERS: BED, CHAIR, WHEELCHAIR - SCORE: 4-MIN TRANSFERS: TOILET: TRANSFERS: TOILET - STEP 1: Does the patient require the assistance of a person or device, or need extra time with toilet transfe rs? Yes. TRANSFERS: TOILET - STEP 2: Does the patient require the assistance of a helper? Yes. TRANSFERS: TOILET - STEP 3: How much assistance does the patient require from the helper? Only supervision, cuing, coaxing, OR he lp to set out transfer equipment or to lock brakes and/or lift foot rests TRANSFERS: TOILET - SCORE: 5-SUP TRANSFERS: SHOWER: Activity did not occur on this shift TRANSFERS: SHOWER - SCORE: 0-UNK TRANSFERS: TUB: Activity did not occur on this shift TRANSFERS: TUB - SCORE: 0-UNK LOCOMOTION: WALK: Activity did not occur on this shift LOCOMOTION: WALK - SCORE: 0-UNK LOCOMOTION: WHEELCHAIR: Activity did not occur on this shift LOCOMOTION: WHEELCHAIR - SCORE: 0-UNK COMPREHENSION: COMPREHENSION: TYPE: Both COMPREHENSION - STEP 1: Does the patient require help from a person or device, or need extra time to understand complex and a bstract ideas (such as current events, finances, discharge planning, medical issues, relationships, e tc)? No. COMPREHENSION - STEP 2: Does the patient need extra time, require an assistive device (such as glasses for visual comprehensi on or a hearing aid for auditory comprehension) or does s/he have mild difficulty understanding compl ex and abstract information? Yes. COMPREHENSION - SCORE: 6-ALEXANDER EXPRESSION EXPRESSION: TYPE: Both EXPRESSION - STEP 1: Does the patient require help from a person or device, or need extra time expressing complex and abst ract ideas (such as current events, finances, discharge planning, medical issues, relationships, etc) ? No. EXPRESSION - STEP 2: Does the patient need extra time, require an assistive device (such as augmentive communication syste m or a communication board), OR does s/he have mild difficulty expressing complex and abstract ideas (including mild dysarthria or mild word-find problems)? Yes. EXPRESSION - SCORE: 6-ALEXANDER SOCIAL INTERACTION: SOCIAL INTERACTION - STEP 1: Does the patient require a helper to interact with others in social and therapeutic situations? No. SOCIAL INTERACTION - STEP 2: Does the patient need extra time in social situations, OR does s/he interact with staff, other patien ts, and family members ONLY in structured environments, OR does s/he require medication for social in teraction? Yes, patient needs extra time SOCIAL INTERACTION - SCORE: 6-ALEXANDER PROBLEM SOLVING: PROBLEM SOLVING - STEP 1: Does the patient need help from a person or device, or need extra time to solve complex problems such as managing a checking account or confronting interpersonal problems? Yes. PROBLEM SOLVING - STEP 2: Does the patient solve basic routine problems half or more of the time? Yes. PROBLEM SOLVING - STEP 3: How often does the patient need help to solve basic routine problems? Less than 10% of the time PROBLEM SOLVING - SCORE: 5-SUP MEMORY: MEMORY - STEP 1: Does the patient need help from a person or device, or need extra time to remember frequently encount ered people, daily routines, and executing requests? No. MEMORY - STEP 2: Does the patient have slight difficulty recognizing frequently encountered people, daily routines, or executing requests without the need for repetition or using self-initiated or environmental cues to remember? Yes. MEMORY - SCORE: 6-ALEXANDER SIGNATURE PANEL: The following modified sections: Eating - Score, Grooming - Score, Bathing - Score, Dressing - Upper Body - Score, Dressing - Lower Body - Score, Bladder Management - Score, Bowel Management - Score, Tr ansfers: Bed, Chair, Wheelchair - Score, Transfers: Toilet - Score, Transfers: Shower - Score, Transf ers: Tub - Score, Locomotion: Walk - Score, Locomotion: Wheelchair - Score, Comprehension - Score, Ex pression - Score, Social Interaction - Score, Problem Solving - Score, Memory - Score were [aaron mercer] signed by Saira Munroe RN on TueSep 26 2018 04:50:22 GMT-0500 (Central Daylight Time)
[2018-09-26] MEDS: INSULIN -REGULAR HUMAN 50 UNIT/0.5 ML ML SQ SCH ×4 (07:30→20:21)
[2018-09-26] MEDS: FERROUS SULFATE 325 MG TAB PO SCH ×2 (08:00→20:00)
[2018-09-26] MEDS: VITAMIN D 400 UNIT TAB PO SCH (08:22)
[2018-09-26] MEDS: METOCLOPRAMIDE 5 MG TAB PO SCH ×4 (08:22→21:29)
[2018-09-26] MEDS: LACTOBACILLUS/ACIDOPHILUS TAB PO SCH ×2 (08:22→20:20)
[2018-09-26] MEDS: ASPIRIN EC 81 MG TAB PO SCH (08:22)
[2018-09-26] MEDS: ISOSORBIDE MONO SR 30 MG TAB PO SCH (08:23)
[2018-09-26] MEDS: predniSONE 5 MG TAB PO SCH (08:23)
[2018-09-26] MEDS: METOPROLOL TAR 50 MG TAB PO SCH ×2 (08:23→20:20)
[2018-09-26] MEDS: FUROSEMIDE 20 MG TABLET PO SCH ×2 (08:23→16:52)
[2018-09-26] MEDS: AMIODARONE HCL 200 MG TAB PO SCH (08:24)
[2018-09-26] MEDS: TIOTROPIUM 5 SPRAYS/INHALER IH SCH (08:25)
[2018-09-26] MEDS: PROMOD 30 ML DOSE PO SCH ×2 (08:25→20:00)
[2018-09-26] MEDS: INSULIN GLARGINE 100 UNITS/ML SQ SCH (09:25)
[2018-09-26] MEDS: HEPARIN 5000 UNIT/ML 1 ML VIAL SQ SCH ×2 (09:26→18:56)
[2018-09-26] MEDS: ARFORMOTEROL TARTRATE 15 MCG/2 ML VIAL.NEB NEB SCH ×2 (10:40→19:25)
--- NOTE | 2018-09-26 16:23 | FAST ---
ENCOUNTER DATE AND TIME: 09/26/2018 08:00 (CDT) NAME SUSANA YAO DATE OF : 1930 DATE OF ADMISSION: 09/20/2018 15:58 (CDT) PHONE: AGE: 88 SSN# [id number] GENDER: Female ENCOUNTER PHYSICIAN: Dr. 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 EATING: Activity did not occur on this shift EATING - SCORE: 0-UNK GROOMING: Activity did not occur on this shift GROOMING - SCORE: 0-UNK BATHING: Activity did not occur on this shift BATHING - SCORE: 0-UNK DRESSING - UPPER BODY: Activity did not occur on this shift Patient is not dressing in public clothing ARTICLES SCORE Total number of steps: 0 DRESSING - UPPER BODY - SCORE: 0-UNK DRESSING - LOWER BODY: Activity did not occur on this shift Patient is not dressing in public clothing ARTICLES SCORE Total number of steps: 0 DRESSING - LOWER BODY - SCORE: 0-UNK TOILETING: Activity did not occur on this shift TOILETING - SCORE: 0-UNK BLADDER MANAGEMENT: Activity did not occur on this shift BLADDER MANAGEMENT - SCORE: 7-IND BOWEL MANAGEMENT: Activity did not occur on this shift BOWEL MANAGEMENT - SCORE: 7-IND TRANSFERS: BED, CHAIR, WHEELCHAIR: TRANSFERS: BED, CHAIR, WHEELCHAIR - STEP 1: Does the patient require assistance of a person or device, or need extra time with bed, chair, or whe elchair transfers? Yes. TRANSFERS: BED, CHAIR, WHEELCHAIR - STEP 2: Does the patient require the assistance of a helper? Yes. TRANSFERS: BED, CHAIR, WHEELCHAIR - STEP 3: How much assistance does the patient require from the helper? Only supervision TRANSFERS: BED, CHAIR, WHEELCHAIR - SCORE: 5-SUP TRANSFERS: TOILET: Activity did not occur on this shift TRANSFERS: TOILET - SCORE: 0-UNK TRANSFERS: SHOWER: Activity did not occur on this shift TRANSFERS: SHOWER - SCORE: 0-UNK TRANSFERS: TUB: Activity did not occur on this shift TRANSFERS: TUB - SCORE: 0-UNK LOCOMOTION: WALK: LOCOMOTION: WALK - STEP 1: Does the patient need help from a person or device, or need extra time to walk 150 feet? Yes. LOCOMOTION: WALK - STEP 2: How much assistance does the patient require to walk a minimum of 150 feet? Patient walks less than 1 50 feet - but more than 50 feet - with the assistance of only one helper LOCOMOTION: WALK - SCORE: 2-MAX LOCOMOTION: WHEELCHAIR: Activity did not occur on this shift LOCOMOTION: WHEELCHAIR - SCORE: 0-UNK LOCOMOTION: STAIRS: Activity did not occur on this shift LOCOMOTION: STAIRS - SCORE: 0-UNK COMPREHENSION: COMPREHENSION - SCORE: 0-UNK EXPRESSION EXPRESSION - SCORE: 0-UNK SOCIAL INTERACTION: SOCIAL INTERACTION - SCORE: 0-UNK PROBLEM SOLVING: PROBLEM SOLVING - SCORE: 0-UNK MEMORY: MEMORY - SCORE: 0-UNK SIGNATURE PANEL: The following modified sections: Transfers: Bed, Chair, Wheelchair - Score, Transfers: Toilet - Score , Locomotion: Walk - Score, Locomotion: Wheelchair - Score, Locomotion: Stairs - Score were [electron ically] signed by Can Justin PT on TueSep 26 2018 16:23:21 T-0500 (Central Daylight Time)
[2018-09-26] MEDS: SERTRALINE HCL 50 MG TAB PO SCH (21:29)
[2018-09-26] MEDS: LISINOPRIL 10 MG TAB PO SCH (21:29)
--- NOTE | 2018-09-27 02:44 | FAST ---
SHIFT START DATE/TIME: 09/26/2018 19:00 (CDT) SHIFT END DATE/TIME: 09/27/2018 07:00 (CDT) NAME SUSANA YAO DATE OF : 1930 DATE OF ADMISSION: 09/20/2018 15:58 (CDT) PHONE: AGE: 88 N# [id number] GENDER: Female ENCOUNTER PHYSICIAN: Dr. 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 EATING: Activity did not occur on this shift EATING - SCORE: 0-UNK GROOMING: Oral care GROOMING - STEP 1: Does the patient require the assistance of a person or device, or need extra time when grooming? Yes. GROOMING - STEP 2: Does the patient require the assistance of a helper? Yes. GROOMING - STEP 3: How much assistance does the patient require from the helper? Only prior equipment preparation/set up from the helper GROOMING - SCORE: 5-SUP BATHING: Activity did not occur on this shift BATHING - SCORE: 0-UNK DRESSING - UPPER BODY: Patient is not dressing in public clothing ARTICLES SCORE Total number of steps: 0 DRESSING - UPPER BODY - SCORE: 0-UNK DRESSING - LOWER BODY: Patient is not dressing in public clothing ARTICLES SCORE Total number of steps: 0 DRESSING - LOWER BODY - SCORE: 0-UNK TOILETING: TOILETING - STEP 1: Does the patient require the assistance of a person or device, or need extra time with toileting? Yes . TOILETING - STEP 2: Does the patient require the assistance of a helper? Yes. TOILETING - STEP 3: How much assistance does the patient require from the helper? Hands-on assistance from the helper TOILETING - STEP 4: Of the 3 tasks: 1) Adjusting clothing prior to use, 2) Cleansing of perineal area, 3) Adjusting clot carli after use; How many tasks does the patient perform WITHOUT assistance of the helper? Three tasks with steadying assistance from the helper TOILETING - SCORE: 4-MIN BLADDER MANAGEMENT: BLADDER MANAGEMENT - STEP 1: Does the patient control the bladder completely and intentionally without equipment or devices or med ications, and is always continent? No. BLADDER MANAGEMENT - STEP 2: Does the patient require the assistance of a helper? Yes. BLADDER MANAGEMENT - STEP 3: How much assistance does the patient require from the helper? Only set-up of equipment - such as plac ing it within reach of the patient or emptying a device - to maintain either satisfactory voiding pat tern or managing an external device, such as an absorbent pad, ileal device, or catheter BLADDER MANAGEMENT - SCORE: 5-SUP BOWEL MANAGEMENT: Activity did not occur on this shift BOWEL MANAGEMENT - SCORE: 7-IND TRANSFERS: BED, CHAIR, WHEELCHAIR: TRANSFERS: BED, CHAIR, WHEELCHAIR - STEP 1: Does the patient require assistance of a person or device, or need extra time with bed, chair, or whe elchair transfers? Yes. TRANSFERS: BED, CHAIR, WHEELCHAIR - STEP 2: Does the patient require the assistance of a helper? Yes. TRANSFERS: BED, CHAIR, WHEELCHAIR - STEP 3: How much assistance does the patient require from the helper? Steadying/guiding assistance TRANSFERS: BED, CHAIR, WHEELCHAIR - SCORE: 4-MIN TRANSFERS: TOILET: TRANSFERS: TOILET - STEP 1: Does the patient require the assistance of a person or device, or need extra time with toilet transfe rs? Yes. TRANSFERS: TOILET - STEP 2: Does the patient require the assistance of a helper? Yes. TRANSFERS: TOILET - STEP 3: How much assistance does the patient require from the helper? Only supervision, cuing, coaxing, OR he lp to set out transfer equipment or to lock brakes and/or lift foot rests TRANSFERS: TOILET - SCORE: 5-SUP TRANSFERS: SHOWER: Activity did not occur on this shift TRANSFERS: SHOWER - SCORE: 0-UNK TRANSFERS: TUB: Activity did not occur on this shift TRANSFERS: TUB - SCORE: 0-UNK LOCOMOTION: WALK: Activity did not occur on this shift LOCOMOTION: WALK - SCORE: 0-UNK LOCOMOTION: WHEELCHAIR: Activity did not occur on this shift LOCOMOTION: WHEELCHAIR - SCORE: 0-UNK COMPREHENSION: COMPREHENSION: TYPE: Both COMPREHENSION - STEP 1: Does the patient require help from a person or device, or need extra time to understand complex and a bstract ideas (such as current events, finances, discharge planning, medical issues, relationships, e tc)? No. COMPREHENSION - STEP 2: Does the patient need extra time, require an assistive device (such as glasses for visual comprehensi on or a hearing aid for auditory comprehension) or does s/he have mild difficulty understanding compl ex and abstract information? Yes. COMPREHENSION - SCORE: 6-ALEXANDER EXPRESSION EXPRESSION: TYPE: Both EXPRESSION - STEP 1: Does the patient require help from a person or device, or need extra time expressing complex and abst ract ideas (such as current events, finances, discharge planning, medical issues, relationships, etc) ? No. EXPRESSION - STEP 2: Does the patient need extra time, require an assistive device (such as augmentive communication syste m or a communication board), OR does s/he have mild difficulty expressing complex and abstract ideas (including mild dysarthria or mild word-find problems)? Yes. EXPRESSION - SCORE: 6-ALEXANDER SOCIAL INTERACTION: SOCIAL INTERACTION - STEP 1: Does the patient require a helper to interact with others in social and therapeutic situations? No. SOCIAL INTERACTION - STEP 2: Does the patient need extra time in social situations, OR does s/he interact with staff, other patien ts, and family members ONLY in structured environments, OR does s/he require medication for social in teraction? Yes, patient needs extra time SOCIAL INTERACTION - SCORE: 6-ALEXANDER PROBLEM SOLVING: PROBLEM SOLVING - STEP 1: Does the patient need help from a person or device, or need extra time to solve complex problems such as managing a checking account or confronting interpersonal problems? Yes. PROBLEM SOLVING - STEP 2: Does the patient solve basic routine problems half or more of the time? Yes. PROBLEM SOLVING - STEP 3: How often does the patient need help to solve basic routine problems? Less than 10% of the time PROBLEM SOLVING - SCORE: 5-SUP MEMORY: MEMORY - STEP 1: Does the patient need help from a person or device, or need extra time to remember frequently encount ered people, daily routines, and executing requests? No. MEMORY - STEP 2: Does the patient have slight difficulty recognizing frequently encountered people, daily routines, or executing requests without the need for repetition or using self-initiated or environmental cues to remember? Yes. MEMORY - SCORE: 6-ALEXANDER
[2018-09-27] MEDS: INSULIN -REGULAR HUMAN 50 UNIT/0.5 ML ML SQ SCH ×4 (07:30→21:53)
[2018-09-27] MEDS: HEPARIN 5000 UNIT/ML 1 ML VIAL SQ SCH ×2 (07:35→21:00)
[2018-09-27] MEDS: FERROUS SULFATE 325 MG TAB PO SCH ×2 (08:00→20:00)
[2018-09-27] MEDS: PROMOD 30 ML DOSE PO SCH ×2 (08:00→20:00)
[2018-09-27 08:25] LABS: Absolute Lymphocytes (CBC) 1.8 K/uL (0.7-4.9); Basophils % 1.2 % (0-1.3); Lymphocytes % 30.8 % (15.3-44.8); MPV 7.5 fL (7.6-11.3); RBC Red Blood Cell Count 3.07 M/uL (3.86-4.86)
[2018-09-27] MEDS: predniSONE 5 MG TAB PO SCH (08:37)
[2018-09-27] MEDS: AMIODARONE HCL 200 MG TAB PO SCH (08:37)
[2018-09-27] MEDS: VITAMIN D 400 UNIT TAB PO SCH (08:37)
[2018-09-27] MEDS: LACTOBACILLUS/ACIDOPHILUS TAB PO SCH ×2 (08:37→21:45)
[2018-09-27] MEDS: METOCLOPRAMIDE 5 MG TAB PO SCH ×4 (08:38→21:46)
[2018-09-27] MEDS: FUROSEMIDE 20 MG TABLET PO SCH ×2 (08:38→16:47)
[2018-09-27] MEDS: ASPIRIN EC 81 MG TAB PO SCH (08:38)
[2018-09-27] MEDS: ISOSORBIDE MONO SR 30 MG TAB PO SCH (08:39)
[2018-09-27] MEDS: TIOTROPIUM 5 SPRAYS/INHALER IH SCH (08:39)
[2018-09-27] MEDS: ARFORMOTEROL TARTRATE 15 MCG/2 ML VIAL.NEB NEB SCH ×2 (08:40→21:20)
[2018-09-27] MEDS: INSULIN GLARGINE 100 UNITS/ML SQ SCH (08:41)
[2018-09-27 08:55] LABS: Magnesium 2.1 mg/dL (1.8-2.4); Potassium 3.5 mmol/L (3.5-5.1); Prealbumin 18.8 mg/dL (20-40)
[2018-09-27] MEDS: METOPROLOL TAR 50 MG TAB PO SCH ×2 (10:20→21:46)
--- NOTE | 2018-09-27 10:45 | P.CNS ---
Date of Consult: 09/27/18 Reason for Consult: Painful toenails Chief Complaint: They have been bothering me for quite a while Allergies codeine [Codeine] Allergy (Mild, Verified 09/20/18 16:20) Itching Penicillins Allergy (Mild, Verified 09/20/18 16:20) Nausea/Vomiting ciprofloxacin [From Cipro] Allergy (Verified 09/20/18 16:20) Shortness of breath iodine Allergy (Verified 09/20/18 16:20) Unknown meperidine [From Demerol] Allergy (Verified 09/20/18 16:20) Unknown metformin Allergy (Verified 09/20/18 16:20) Nausea/Vomiting morphine Allergy (Verified 09/20/18 16:20) Unknown Ivtvhah-Ijc-Lqc Reductase Inhibitor Allergy (Verified 09/20/18 16:20) Nausea/Vomiting CT Dye Allergy (Uncoded 09/20/18 16:20) Unknown Tape Allergy (Uncoded 09/20/18 16:20) Itching Home Medications: Amiodarone HCl 100 mg PO DAILY 06/27/18 Arformoterol Tartrate [Brovana] 15 mcg IH BID 06/27/18 Furosemide [Lasix] 20 mg PO BID 06/27/18 Lisinopril [Prinivil] 10 mg PO DAILY 06/27/18 Metoprolol Tartrate [Lopressor] 50 mg PO BID 06/27/18 Tiotropium [Spiriva Handihaler*] 1 dose IH DAILY 06/27/18 Acetaminophen [Tylenol] 650 mg PO Q6H PRN 09/20/18 Acidophilus/Bulgaricus [Lactinex Tablet Chewable] 1 tab PO Q12H 09/20/18 Albuterol Sulfate [Proair Hfa] 1 - 2 puff IH Q4H PRN 09/20/18 Aspirin [Aspirin EC 81 MG] 1 tab PO DAILY 09/20/18 Bisacodyl [Dulcolax*] 1 supp NC DAILY PRN 09/20/18 Carboxymethylcellulose Sodium [Lubricant Eye Drop] 1 drop OPTH BID PRN 09/20/18 Cholecalciferol (Vitamin D3) [Vitamin D 400 IU TAB*] 1 tab PO DAILY 09/20/18 Diphenhydramine [Benadryl*] 1 cap PO BEDTIME PRN 09/20/18 Docusate [Colace Cap*] 1 cap PO BID PRN 09/20/18 Insulin Glargine Human [Lantus*] 8 unit SQ DAILY 09/20/18 Isosorbide Mononitrate [Isosorbide Mononitrate ER] 1 tab PO DAILY AFTER SUPPER 09/20/18 Melatonin [Melatonin*] 6 mg PO BEDTIME PRN 09/20/18 Senosides [Senokot*] 1 tab PO BID PRN 09/20/18 - Past Medical/Surgical History Diabetic: Yes -: DM -: COPD -: LUNG CA -: CHF -: htn -: hyperlipidemia -: uti -: cad -: AAA -: cardiomyopathy -: Cataract sx R eye -: 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) -: Triple Bypass in 1999 -: Upper teeth removd -: chloesectomy -: appendectomy -: bladder surgery -: AAA repair using straight graft (2014) - Family History Father Medical History: Diabetes Notes: asthma, tuberculosis, pneumonia Mother Medical History: Heart disease, Stroke Notes: pneumonia - Social History Smoking Status: Unknown if ever smoked Alcohol use: No CD- Drugs: No Caffeine use: No Place of Residence: Home Review of Systems 10-point ROS is otherwise unremarkable Physical Examination Temp Pulse Resp BP Pulse Ox 97.8 F 79 14 146/52 H 99 09/27/18 09:37 09/27/18 10:20 09/27/18 09:37 09/27/18 10:20 09/27/18 09:37 General: Alert, In no apparent distress, Oriented x3 Cardiovascular: No edema, Abnormal pulses (0/4 dp/pt pulses bilateral) Capillary refill: <2 Seconds Musculoskeletal: No clubbing, No swelling, No contractures, No erythema, No tenderness, No warmth Integumentary: Other (absent hair growth bilateral lower extremity, skin cool to touch, thickened hypertrophic nails bilateral hallux nails. Elongated nails otherwise) Neurological: Sensation intact Laboratory Data (last 24 hrs) 09/27/18 07:33: WBC 5.9, Hgb 9.8 L, Hct 29.0 L D, Plt Count 234 09/27/18 07:33: Sodium 143, Potassium 3.5, BUN 13, Creatinine 1.10, Glucose 131 H, Magnesium 2.1 - Problems (1) Tinea unguium Current Visit: Yes Status: Acute (2) Onychogryphosis Current Visit: Yes Status: Acute (3) Type 2 diabetes mellitus with diabetic peripheral angiopathy without gangrene Current Visit: Yes Status: Acute Conclusions/Impression: Debridment of nails bedside. Physician Review: Patient Assessed, Agree with Above Assessment and Plan
--- NOTE | 2018-09-27 14:48 | FAST ---
SHIFT START DATE/TIME: 09/27/2018 07:00 (CDT) SHIFT END DATE/TIME: 09/27/2018 19:00 (CDT) NAME SUSANA YAO DATE OF : 1930 DATE OF ADMISSION: 09/20/2018 15:58 (CDT) PHONE: AGE: 88 SSN# [id number] GENDER: Female ENCOUNTER PHYSICIAN: Dr. 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 EATING: EATING - STEP 1: Does the patient require the assistance of a person or device, or need extra time when eating? Yes. EATING - STEP 2: Does the patient require the assistance of a helper? No, patient only requires an assistive device, O R s/he takes more than reasonable time to eat, OR there is a safety concern, OR s/he requires modifie d food consistency EATING - SCORE: 6-ALEXANDER GROOMING: Activity did not occur on this shift GROOMING - SCORE: 0-UNK BATHING: Activity did not occur on this shift BATHING - SCORE: 0-UNK DRESSING - UPPER BODY: Activity did not occur on this shift ARTICLES SCORE Total number of steps: 0 DRESSING - UPPER BODY - SCORE: 0-UNK DRESSING - LOWER BODY: Activity did not occur on this shift ARTICLES SCORE Total number of steps: 0 DRESSING - LOWER BODY - SCORE: 0-UNK TOILETING: TOILETING - STEP 1: Does the patient require the assistance of a person or device, or need extra time with toileting? Yes . TOILETING - STEP 2: Does the patient require the assistance of a helper? Yes. TOILETING - STEP 3: How much assistance does the patient require from the helper? Only supervision TOILETING - SCORE: 5-SUP BLADDER MANAGEMENT: BLADDER MANAGEMENT - STEP 1: Does the patient control the bladder completely and intentionally without equipment or devices or med ications, and is always continent? No. BLADDER MANAGEMENT - STEP 2: Does the patient require the assistance of a helper? No, patient requires and independently uses an a ssistive device, such as a urinal, bedpan, bedside commode, catheter, absorbent pad, or collecting de vice BLADDER MANAGEMENT - SCORE: 6-ALEXANDER BOWEL MANAGEMENT: Activity did not occur on this shift BOWEL MANAGEMENT - SCORE: 7-IND TRANSFERS: BED, CHAIR, WHEELCHAIR: TRANSFERS: BED, CHAIR, WHEELCHAIR - STEP 1: Does the patient require assistance of a person or device, or need extra time with bed, chair, or whe elchair transfers? Yes. TRANSFERS: BED, CHAIR, WHEELCHAIR - STEP 2: Does the patient require the assistance of a helper? Yes. TRANSFERS: BED, CHAIR, WHEELCHAIR - STEP 3: How much assistance does the patient require from the helper? Steadying/guiding assistance TRANSFERS: BED, CHAIR, WHEELCHAIR - SCORE: 4-MIN TRANSFERS: TOILET: TRANSFERS: TOILET - STEP 1: Does the patient require the assistance of a person or device, or need extra time with toilet transfe rs? Yes. TRANSFERS: TOILET - STEP 2: Does the patient require the assistance of a helper? Yes. TRANSFERS: TOILET - STEP 3: How much assistance does the patient require from the helper? Only supervision, cuing, coaxing, OR he lp to set out transfer equipment or to lock brakes and/or lift foot rests TRANSFERS: TOILET - SCORE: 5-SUP TRANSFERS: SHOWER: Activity did not occur on this shift TRANSFERS: SHOWER - SCORE: 0-UNK TRANSFERS: TUB: Activity did not occur on this shift TRANSFERS: TUB - SCORE: 0-UNK LOCOMOTION: WALK: Activity did not occur on this shift LOCOMOTION: WALK - SCORE: 0-UNK LOCOMOTION: WHEELCHAIR: Activity did not occur on this shift LOCOMOTION: WHEELCHAIR - SCORE: 0-UNK COMPREHENSION: COMPREHENSION: TYPE: Both COMPREHENSION - STEP 1: Does the patient require help from a person or device, or need extra time to understand complex and a bstract ideas (such as current events, finances, discharge planning, medical issues, relationships, e tc)? No. COMPREHENSION - STEP 2: Does the patient need extra time, require an assistive device (such as glasses for visual comprehensi on or a hearing aid for auditory comprehension) or does s/he have mild difficulty understanding compl ex and abstract information? Yes. COMPREHENSION - SCORE: 6-ALEXANDER EXPRESSION EXPRESSION: TYPE: Both EXPRESSION - STEP 1: Does the patient require help from a person or device, or need extra time expressing complex and abst ract ideas (such as current events, finances, discharge planning, medical issues, relationships, etc) ? No. EXPRESSION - STEP 2: Does the patient need extra time, require an assistive device (such as augmentive communication syste m or a communication board), OR does s/he have mild difficulty expressing complex and abstract ideas (including mild dysarthria or mild word-find problems)? Yes. EXPRESSION - SCORE: 6-ALEXANDER SOCIAL INTERACTION: SOCIAL INTERACTION - STEP 1: Does the patient require a helper to interact with others in social and therapeutic situations? No. SOCIAL INTERACTION - STEP 2: Does the patient need extra time in social situations, OR does s/he interact with staff, other patien ts, and family members ONLY in structured environments, OR does s/he require medication for social in teraction? Yes, patient needs extra time SOCIAL INTERACTION - SCORE: 6-ALEXANDER PROBLEM SOLVING: PROBLEM SOLVING - STEP 1: Does the patient need help from a person or device, or need extra time to solve complex problems such as managing a checking account or confronting interpersonal problems? No. PROBLEM SOLVING - STEP 2: Does the patient require extra time to make decisions or solve problems, OR does s/he have slight dif ficulty reading, initiating, or self-correcting in unfamiliar situations? Yes, patient needs extra ti me. PROBLEM SOLVING - SCORE: 6-ALEXANDER MEMORY: MEMORY - STEP 1: Does the patient need help from a person or device, or need extra time to remember frequently encount ered people, daily routines, and executing requests? No. MEMORY - STEP 2: Does the patient have slight difficulty recognizing frequently encountered people, daily routines, or executing requests without the need for repetition or using self-initiated or environmental cues to remember? Yes. MEMORY - SCORE: 6-ALEXANDER SIGNATURE PANEL: The following modified sections: Eating - Score, Grooming - Score, Bathing - Score, Dressing - Upper Body - Score, Dressing - Lower Body - Score, Toileting - Score, Bladder Management - Score, Bowel Man agement - Score, Transfers: Bed, Chair, Wheelchair - Score, Transfers: Toilet - Score, Transfers: Nimo wer - Score, Transfers: Tub - Score, Locomotion: Walk - Score, Locomotion: Wheelchair - Score, Compre hension - Score, Expression - Score, Social Interaction - Score, Problem Solving - Score, Memory - Sc ore were [electronically] signed by Lamonte Pratt on TueSep 27 2018 14:47:58 GMT-0500 (Central Daylight Time)
--- NOTE | 2018-09-27 15:19 | FAST ---
ENCOUNTER DATE AND TIME: 09/27/2018 08:00 (CDT) NAME SUSANA YAO DATE OF : 1930 DATE OF ADMISSION: 09/20/2018 15:58 (CDT) PHONE: AGE: 88 SSN# [id number] GENDER: Female ENCOUNTER PHYSICIAN: Dr. 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 EATING: Activity did not occur on this shift EATING - SCORE: 0-UNK GROOMING: Activity did not occur on this shift GROOMING - SCORE: 0-UNK BATHING: Activity did not occur on this shift BATHING - SCORE: 0-UNK DRESSING - UPPER BODY: Activity did not occur on this shift Patient is not dressing in public clothing ARTICLES SCORE Total number of steps: 0 DRESSING - UPPER BODY - SCORE: 0-UNK DRESSING - LOWER BODY: Activity did not occur on this shift Patient is not dressing in public clothing ARTICLES SCORE Total number of steps: 0 DRESSING - LOWER BODY - SCORE: 0-UNK TOILETING: Activity did not occur on this shift TOILETING - SCORE: 0-UNK BLADDER MANAGEMENT: Activity did not occur on this shift BLADDER MANAGEMENT - SCORE: 7-IND BOWEL MANAGEMENT: Activity did not occur on this shift BOWEL MANAGEMENT - SCORE: 7-IND TRANSFERS: BED, CHAIR, WHEELCHAIR: TRANSFERS: BED, CHAIR, WHEELCHAIR - STEP 1: Does the patient require assistance of a person or device, or need extra time with bed, chair, or whe elchair transfers? Yes. TRANSFERS: BED, CHAIR, WHEELCHAIR - STEP 2: Does the patient require the assistance of a helper? Yes. TRANSFERS: BED, CHAIR, WHEELCHAIR - STEP 3: How much assistance does the patient require from the helper? Only supervision TRANSFERS: BED, CHAIR, WHEELCHAIR - SCORE: 5-SUP TRANSFERS: TOILET: Activity did not occur on this shift TRANSFERS: TOILET - SCORE: 0-UNK TRANSFERS: SHOWER: Activity did not occur on this shift TRANSFERS: SHOWER - SCORE: 0-UNK TRANSFERS: TUB: Activity did not occur on this shift TRANSFERS: TUB - SCORE: 0-UNK LOCOMOTION: WALK: LOCOMOTION: WALK - STEP 1: Does the patient need help from a person or device, or need extra time to walk 150 feet? Yes. LOCOMOTION: WALK - STEP 2: How much assistance does the patient require to walk a minimum of 150 feet? Patient walks less than 1 50 feet - but more than 50 feet - with the assistance of only one helper LOCOMOTION: WALK - SCORE: 2-MAX LOCOMOTION: WHEELCHAIR: Activity did not occur on this shift LOCOMOTION: WHEELCHAIR - SCORE: 0-UNK LOCOMOTION: STAIRS: Activity did not occur on this shift LOCOMOTION: STAIRS - SCORE: 0-UNK COMPREHENSION: COMPREHENSION - SCORE: 0-UNK EXPRESSION EXPRESSION - SCORE: 0-UNK SOCIAL INTERACTION: SOCIAL INTERACTION - SCORE: 0-UNK PROBLEM SOLVING: PROBLEM SOLVING - SCORE: 0-UNK MEMORY: MEMORY - SCORE: 0-UNK SIGNATURE PANEL: The following modified sections: Transfers: Bed, Chair, Wheelchair - Score, Transfers: Toilet - Score , Locomotion: Walk - Score, Locomotion: Wheelchair - Score, Locomotion: Stairs - Score were [electron ically] signed by Can Justin PT on TueSep 27 2018 15:18:14 T-0500 (Central Daylight Time)
[2018-09-27] MEDS: LISINOPRIL 10 MG TAB PO SCH (21:00)
[2018-09-27] MEDS: SERTRALINE HCL 50 MG TAB PO SCH (21:46)
[2018-09-27] MEDS: SENOSIDES 8.6 MG TAB PO PRN (21:51)
--- NOTE | 2018-09-27 23:56 | R.PN ---
ENCOUNTER DATE AND TIME: 09/27/2018 23:45 (CDT) NAME SUSANA YAO DATE OF : 1930 DATE OF ADMISSION: 09/20/2018 15:58 (CDT) Abdominal aortic aneurysm (I71.4)CHIEF COMPLAINT: Debility and abdominal aortic aneurysm. SUBJECTIVE: Pt denied any depression. Pt denied any Shortness of Breath. Ambulated 675' with standby assistance. VITAL SIGNS Temperature: 97.6 F SBP/DBP: 129/50 Pulse: 75 Resp: 14 MEDICATION ALLERGIES: No Known Drug Allergies (NKDA) ENVIRONMENTAL ALLERGIES: - Substance Allergies None Known - Other Allergies None Known NURSING: - Shower allowing shower - Lab Results blood Sugar Check ACHS - Bladder care per protocol - Skin care per protocol ACTIVITIES OOB only with supervision THERAPIES: - Orthotics/Prosthetics Orthotic Evaluation. Splinting/Casting. - Dietary and Nutrition Adequate Nutrition. Nutritional Education. Nutritional Supplements. PHYSICAL EXAM - Gen Alert and awake Lying in bed No apparent distress Oriented to: person, time, and place - Skin No skin breakdown. No abnormalities - Eyes No abnormalities - ENMT No abnormalities - Neck No abnormalities - CVS RRR - Chest No abnormalities - Abd Soft - GI nondistended Deferred - No abnormalities - Ext No significant edema - MSK 4/5 weakness in both lower extremities. - Neuro No focal deficits - Psych No abnormalities ASSESSMENT: Pt. 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 was independent/mod-I in Self-Care , Sphincter Control, Transfers Control, Locomotion, Communication, and Social Cognition; and she had good Sphincter Control.Currently, she has deficits of Transfers Control, Locomotion, Communication, S ocial Cognition, Endurance, Balance, Safety Awareness, and Self-Care.Pt. is now referred to [facility] for acute in-patient rehabilitation in order to maximize patient's functiona l independence in activities of daily living, strength, ROM, and mobility.- Rehab Goal Patient has realistic goal of being discharged at assistance level 6-Shara to reside at Home with Fam pamela/Relatives. MDM/PLAN: - Physical Therapy Gait dysfunction - to improve, our physical therapists will perform initial evaluation of pt's statu s upon admission and devise an individualized program for Gait Training, and Wheel Chair mobility Inability to transfer - to improve, our physical therapists will perform initial evaluation of pt's status upon admission and devise an individualized program for Bed mobility Need for home safety evaluation - to improve, our physical therapists will perform initial evaluatio n of pt's status upon admission and devise an individualized program for Home Evaluation Need in caregiver upon discharge - to improve, our physical therapists will perform initial evaluati on of pt's status upon admission and devise an individualized program for Caregiver Training New precaution - to improve, our physical therapists will perform initial evaluation of pt's status upon admission and devise an individualized program for Patient precaution education Poor balance - to improve, our physical therapists will perform initial evaluation of pt's status up on admission and devise an individualized program for Balance Training Poor endurance - to improve, our physical therapists will perform initial evaluation of pt's status upon admission and devise an individualized program for Endurance Training Weakness - to improve, our physical therapists will perform initial evaluation of pt's status upon a dmission and devise an individualized program for Aquatic Therapy, Neuromuscular Reeducation, and Str engthening Achieving independence - to improve, our physical therapists will perform initial evaluation of pt's status upon admission and devise an individualized program for Community Reintegration Activities - Occupational Therapy ADL deficits - to improve, our occupation therapists will perform initial evaluation of pt's status upon admission and devise an individualized program for Bathing, Bed mobility, Community Reintegratio n, Cooking, Dressing, Eating, Fine Motor Skills, Grooming, Homemaking, Kitchen Mobility, Laundry, Pat ient Education, Safety Awareness, Splinting - Positioning, Transfers(Toilet, Tub, Shower), and Wheel Chair Management Cognitive deficits - to improve, our occupation therapists will perform initial evaluation of pt's s tatus upon admission and devise an individualized program for Cognition - orientation Need for geriatric care manager - to improve, our occupation therapists will perform initial evaluation of pt's status upon admission and devise an individualized program for Caregiver Training Weakness - to improve, our occupation therapists will perform initial evaluation of pt's status upon admission and devise an individualized program for Aquatic Therapy, Balance, Endurance, UE ROM, and UE strengthening - Other See attached MAR (Medication Administration Record) - Diet Type Continue Regular - Diet - Liquid Texture Continue Regular - Tube Feed Continue N/A - Lab Results blood Sugar Check ACHS - Bladder care per protocol - Skin care per protocol - Diet - Solid Texture Continue Regular - Shower allowing shower FUNCTIONAL STATUS: - Self-Care A. Eating Ind B. Grooming sup C. Bathing sup D. Dressing - Upper sup E. Dressing - Lower Dep F. Toileting modA - Sphincter Control G: Bladder control Ind H: Bowel control Ind - Transfers Control I. Bed/Chair/Wheelchair Aide J. Toilet Aide K. Tub/Shower Aide - Locomotion L. Walk/Wheelchair (B) Dep M. Stairs ADNO - Communication N. Comprehension (B) sup O. Expression (B) sup - Social Cognition P. Social Interaction sup Q. Problem Solving sup R. Memory sup - Endurance Poor - Balance Poor - Safety Awareness Poor CURRENT FUNC. DEFICITS: Transfers Control, Locomotion, Communication, Social Cognition, Endurance, Balance, Safety Awareness, and Self-Care SIGNATURE PANEL: (CDT)
[2018-09-28] MEDS: INSULIN -REGULAR HUMAN 50 UNIT/0.5 ML ML SQ SCH ×4 (07:30→21:46)
[2018-09-28] MEDS: METOCLOPRAMIDE 5 MG TAB PO SCH ×4 (07:30→21:44)
[2018-09-28] MEDS: FERROUS SULFATE 325 MG TAB PO SCH ×3 (08:00→21:44)
[2018-09-28] MEDS: PROMOD 30 ML DOSE PO SCH ×2 (08:00→21:46)
[2018-09-28] MEDS: HEPARIN 5000 UNIT/ML 1 ML VIAL SQ SCH (08:00)
[2018-09-28] MEDS: ARFORMOTEROL TARTRATE 15 MCG/2 ML VIAL.NEB NEB SCH ×2 (08:35→20:00)
[2018-09-28] MEDS: predniSONE 5 MG TAB PO SCH (08:52)
[2018-09-28] MEDS: FUROSEMIDE 20 MG TABLET PO SCH ×2 (08:52→16:35)
[2018-09-28] MEDS: METOPROLOL TAR 50 MG TAB PO SCH ×2 (08:53→21:45)
[2018-09-28] MEDS: LACTOBACILLUS/ACIDOPHILUS TAB PO SCH ×2 (08:53→21:44)
[2018-09-28] MEDS: AMIODARONE HCL 200 MG TAB PO SCH (08:54)
[2018-09-28] MEDS: ISOSORBIDE MONO SR 30 MG TAB PO SCH (08:54)
[2018-09-28] MEDS: ASPIRIN EC 81 MG TAB PO SCH (08:54)
[2018-09-28] MEDS: VITAMIN D 400 UNIT TAB PO SCH (08:54)
[2018-09-28] MEDS: INSULIN GLARGINE 100 UNITS/ML SQ SCH (09:52)
[2018-09-28] MEDS: TIOTROPIUM 5 SPRAYS/INHALER IH SCH (09:52)
--- NOTE | 2018-09-28 14:37 | FAST ---
SHIFT START DATE/TIME: 09/28/2018 07:00 (CDT) SHIFT END DATE/TIME: 09/28/2018 19:00 (CDT) NAME SUSANA YAO DATE OF : 1930 DATE OF ADMISSION: 09/20/2018 15:58 (CDT) PHONE: AGE: 88 N# [id number] GENDER: Female ENCOUNTER PHYSICIAN: Dr. Martin Carranza M.D. 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 EATING: EATING - STEP 1: Does the patient require the assistance of a person or device, or need extra time when eating? Yes. EATING - STEP 2: Does the patient require the assistance of a helper? No, patient only requires an assistive device, O R s/he takes more than reasonable time to eat, OR there is a safety concern, OR s/he requires modifie d food consistency EATING - SCORE: 6-ALEXANDER GROOMING: Activity did not occur on this shift GROOMING - SCORE: 0-UNK BATHING: Activity did not occur on this shift BATHING - SCORE: 0-UNK DRESSING - UPPER BODY: Activity did not occur on this shift ARTICLES SCORE Total number of steps: 0 DRESSING - UPPER BODY - SCORE: 0-UNK DRESSING - LOWER BODY: Activity did not occur on this shift ARTICLES SCORE Total number of steps: 0 DRESSING - LOWER BODY - SCORE: 0-UNK TOILETING: TOILETING - STEP 1: Does the patient require the assistance of a person or device, or need extra time with toileting? Yes . TOILETING - STEP 2: Does the patient require the assistance of a helper? Yes. TOILETING - STEP 3: How much assistance does the patient require from the helper? Hands-on assistance from the helper TOILETING - STEP 4: Of the 3 tasks: 1) Adjusting clothing prior to use, 2) Cleansing of perineal area, 3) Adjusting clot carli after use; How many tasks does the patient perform WITHOUT assistance of the helper? Three tasks with steadying assistance from the helper TOILETING - SCORE: 4-MIN BLADDER MANAGEMENT: BLADDER MANAGEMENT - STEP 1: Does the patient control the bladder completely and intentionally without equipment or devices or med ications, and is always continent? No. BLADDER MANAGEMENT - STEP 2: Does the patient require the assistance of a helper? No, patient requires and independently uses an a ssistive device, such as a urinal, bedpan, bedside commode, catheter, absorbent pad, or collecting de vice BLADDER MANAGEMENT - SCORE: 6-ALEXANDER BOWEL MANAGEMENT: Activity did not occur on this shift BOWEL MANAGEMENT - SCORE: 7-IND TRANSFERS: BED, CHAIR, WHEELCHAIR: TRANSFERS: BED, CHAIR, WHEELCHAIR - STEP 1: Does the patient require assistance of a person or device, or need extra time with bed, chair, or whe elchair transfers? Yes. TRANSFERS: BED, CHAIR, WHEELCHAIR - STEP 2: Does the patient require the assistance of a helper? Yes. TRANSFERS: BED, CHAIR, WHEELCHAIR - STEP 3: How much assistance does the patient require from the helper? Steadying/guiding assistance TRANSFERS: BED, CHAIR, WHEELCHAIR - SCORE: 4-MIN TRANSFERS: TOILET: TRANSFERS: TOILET - STEP 1: Does the patient require the assistance of a person or device, or need extra time with toilet transfe rs? Yes. TRANSFERS: TOILET - STEP 2: Does the patient require the assistance of a helper? Yes. TRANSFERS: TOILET - STEP 3: How much assistance does the patient require from the helper? Patient performs half or more of the tr ansferring tasks TRANSFERS: TOILET - STEP 4: Does the patient need only incidental help such as contact guard or steadying during toilet transfer? Yes. TRANSFERS: TOILET - SCORE: 4-MIN TRANSFERS: SHOWER: Activity did not occur on this shift TRANSFERS: SHOWER - SCORE: 0-UNK TRANSFERS: TUB: Activity did not occur on this shift TRANSFERS: TUB - SCORE: 0-UNK LOCOMOTION: WALK: Activity did not occur on this shift LOCOMOTION: WALK - SCORE: 0-UNK LOCOMOTION: WHEELCHAIR: Activity did not occur on this shift LOCOMOTION: WHEELCHAIR - SCORE: 0-UNK COMPREHENSION: COMPREHENSION: TYPE: Both COMPREHENSION - STEP 1: Does the patient require help from a person or device, or need extra time to understand complex and a bstract ideas (such as current events, finances, discharge planning, medical issues, relationships, e tc)? No. COMPREHENSION - STEP 2: Does the patient need extra time, require an assistive device (such as glasses for visual comprehensi on or a hearing aid for auditory comprehension) or does s/he have mild difficulty understanding compl ex and abstract information? Yes. COMPREHENSION - SCORE: 6-ALEXANDER EXPRESSION EXPRESSION: TYPE: Both EXPRESSION - STEP 1: Does the patient require help from a person or device, or need extra time expressing complex and abst ract ideas (such as current events, finances, discharge planning, medical issues, relationships, etc) ? No. EXPRESSION - STEP 2: Does the patient need extra time, require an assistive device (such as augmentive communication syste m or a communication board), OR does s/he have mild difficulty expressing complex and abstract ideas (including mild dysarthria or mild word-find problems)? Yes. EXPRESSION - SCORE: 6-ALEXANDER SOCIAL INTERACTION: SOCIAL INTERACTION - STEP 1: Does the patient require a helper to interact with others in social and therapeutic situations? No. SOCIAL INTERACTION - STEP 2: Does the patient need extra time in social situations, OR does s/he interact with staff, other patien ts, and family members ONLY in structured environments, OR does s/he require medication for social in teraction? Yes, patient needs extra time SOCIAL INTERACTION - SCORE: 6-ALEXANDER PROBLEM SOLVING: PROBLEM SOLVING - STEP 1: Does the patient need help from a person or device, or need extra time to solve complex problems such as managing a checking account or confronting interpersonal problems? No. PROBLEM SOLVING - STEP 2: Does the patient require extra time to make decisions or solve problems, OR does s/he have slight dif ficulty reading, initiating, or self-correcting in unfamiliar situations? Yes, patient needs extra ti me. PROBLEM SOLVING - SCORE: 6-ALEXANDER MEMORY: MEMORY - STEP 1: Does the patient need help from a person or device, or need extra time to remember frequently encount ered people, daily routines, and executing requests? No. MEMORY - STEP 2: Does the patient have slight difficulty recognizing frequently encountered people, daily routines, or executing requests without the need for repetition or using self-initiated or environmental cues to remember? Yes. MEMORY - SCORE: 6-ALEXANDER SIGNATURE PANEL: The following modified sections: Eating - Score, Grooming - Score, Bathing - Score, Dressing - Upper Body - Score, Dressing - Lower Body - Score, Toileting - Score, Bladder Management - Score, Bowel Man agement - Score, Transfers: Bed, Chair, Wheelchair - Score, Transfers: Toilet - Score, Transfers: Nimo wer - Score, Transfers: Tub - Score, Locomotion: Walk - Score, Locomotion: Wheelchair - Score, Compre hension - Score, Expression - Score, Social Interaction - Score, Memory - Score, Problem Solving - Sc ore were [electronically] signed by Lamonte Pratt on TueSep 28 2018 14:37:11 GMT-0500 (Central Daylight Time)
[2018-09-28] MEDS: SERTRALINE HCL 50 MG TAB PO SCH (21:44)
[2018-09-28] MEDS: APIXABAN 2.5 MG TABLET PO SCH (21:44)
[2018-09-28] MEDS: LISINOPRIL 10 MG TAB PO SCH (21:44)
[2018-09-28] MEDS: LIDOCAINE 5% PATCH TOP SCH (21:46)
--- NOTE | 2018-09-29 00:58 | FAST ---
SHIFT START DATE/TIME: 09/28/2018 19:00 (CDT) SHIFT END DATE/TIME: 09/29/2018 07:00 (CDT) NAME SUSANA YAO DATE OF : 1930 DATE OF ADMISSION: 09/20/2018 15:58 (CDT) PHONE: AGE: 88 N# [id number] GENDER: Female ENCOUNTER PHYSICIAN: Dr. Martin Carranza M.D. 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 EATING: Activity did not occur on this shift EATING - SCORE: 0-UNK GROOMING: Wash, rinse, and dry hands GROOMING - STEP 1: Does the patient require the assistance of a person or device, or need extra time when grooming? Yes. GROOMING - STEP 2: Does the patient require the assistance of a helper? No. The patient only requires an assistive devic e, OR takes more than reasonable time to groom, OR there is a concern for safety as the patient groom s GROOMING - SCORE: 6-ALEXANDER BATHING: Activity did not occur on this shift BATHING - SCORE: 0-UNK DRESSING - UPPER BODY: Patient is not dressing in public clothing ARTICLES SCORE Total number of steps: 0 DRESSING - UPPER BODY - SCORE: 0-UNK DRESSING - LOWER BODY: Patient is not dressing in public clothing ARTICLES SCORE Total number of steps: 0 DRESSING - LOWER BODY - SCORE: 0-UNK TOILETING: TOILETING - STEP 1: Does the patient require the assistance of a person or device, or need extra time with toileting? Yes . TOILETING - STEP 2: Does the patient require the assistance of a helper? Yes. TOILETING - STEP 3: How much assistance does the patient require from the helper? Only supervision TOILETING - SCORE: 5-SUP BLADDER MANAGEMENT: BLADDER MANAGEMENT - STEP 1: Does the patient control the bladder completely and intentionally without equipment or devices or med ications, and is always continent? No. BLADDER MANAGEMENT - STEP 2: Does the patient require the assistance of a helper? No, patient requires and independently uses an a ssistive device, such as a urinal, bedpan, bedside commode, catheter, absorbent pad, or collecting de vice BLADDER MANAGEMENT - SCORE: 6-ALEXANDER BOWEL MANAGEMENT: BOWEL MANAGEMENT - STEP 1: Does the patient control bowels completely and intentionally without equipment devices or medications AND is always continent? No. BOWEL MANAGEMENT - STEP 2: Does the patient require the assistance of a helper? No, patient requires medication for control such as stool softeners, suppositories, laxatives, enemas, or OTC medications BOWEL MANAGEMENT - SCORE: 6-ALEXANDER TRANSFERS: BED, CHAIR, WHEELCHAIR: TRANSFERS: BED, CHAIR, WHEELCHAIR - STEP 1: Does the patient require assistance of a person or device, or need extra time with bed, chair, or whe elchair transfers? Yes. TRANSFERS: BED, CHAIR, WHEELCHAIR - STEP 2: Does the patient require the assistance of a helper? Yes. TRANSFERS: BED, CHAIR, WHEELCHAIR - STEP 3: How much assistance does the patient require from the helper? Steadying/guiding assistance TRANSFERS: BED, CHAIR, WHEELCHAIR - SCORE: 4-MIN TRANSFERS: TOILET: TRANSFERS: TOILET - STEP 1: Does the patient require the assistance of a person or device, or need extra time with toilet transfe rs? Yes. TRANSFERS: TOILET - STEP 2: Does the patient require the assistance of a helper? No. Patient only requires an assistive device pollack ch as a grab bar or special seat, OR s/he takes more than reasonable time to perform toilet transfers , OR there is a safety concern when s/he performs toilet transfers. TRANSFERS: TOILET - SCORE: 6-ALEXANDER TRANSFERS: SHOWER: Activity did not occur on this shift TRANSFERS: SHOWER - SCORE: 0-UNK TRANSFERS: TUB: Activity did not occur on this shift TRANSFERS: TUB - SCORE: 0-UNK LOCOMOTION: WALK: Activity did not occur on this shift LOCOMOTION: WALK - SCORE: 0-UNK LOCOMOTION: WHEELCHAIR: Activity did not occur on this shift LOCOMOTION: WHEELCHAIR - SCORE: 0-UNK COMPREHENSION: COMPREHENSION: TYPE: Both COMPREHENSION - STEP 1: Does the patient require help from a person or device, or need extra time to understand complex and a bstract ideas (such as current events, finances, discharge planning, medical issues, relationships, e tc)? No. COMPREHENSION - STEP 2: Does the patient need extra time, require an assistive device (such as glasses for visual comprehensi on or a hearing aid for auditory comprehension) or does s/he have mild difficulty understanding compl ex and abstract information? Yes. COMPREHENSION - SCORE: 6-ALEXANDER EXPRESSION EXPRESSION: TYPE: Both EXPRESSION - STEP 1: Does the patient require help from a person or device, or need extra time expressing complex and abst ract ideas (such as current events, finances, discharge planning, medical issues, relationships, etc) ? No. EXPRESSION - STEP 2: Does the patient need extra time, require an assistive device (such as augmentive communication syste m or a communication board), OR does s/he have mild difficulty expressing complex and abstract ideas (including mild dysarthria or mild word-find problems)? No. EXPRESSION - SCORE: 7-IND SOCIAL INTERACTION: SOCIAL INTERACTION - STEP 1: Does the patient require a helper to interact with others in social and therapeutic situations? No. SOCIAL INTERACTION - STEP 2: Does the patient need extra time in social situations, OR does s/he interact with staff, other patien ts, and family members ONLY in structured environments, OR does s/he require medication for social in teraction? Yes, patient needs extra time SOCIAL INTERACTION - SCORE: 6-ALEXANDER PROBLEM SOLVING: PROBLEM SOLVING - STEP 1: Does the patient need help from a person or device, or need extra time to solve complex problems such as managing a checking account or confronting interpersonal problems? Yes. PROBLEM SOLVING - STEP 2: Does the patient solve basic routine problems half or more of the time? Yes. PROBLEM SOLVING - STEP 3: How often does the patient need help to solve basic routine problems? Less than 10% of the time PROBLEM SOLVING - SCORE: 5-SUP MEMORY: MEMORY - STEP 1: Does the patient need help from a person or device, or need extra time to remember frequently encount ered people, daily routines, and executing requests? No. MEMORY - STEP 2: Does the patient have slight difficulty recognizing frequently encountered people, daily routines, or executing requests without the need for repetition or using self-initiated or environmental cues to remember? Yes. MEMORY - SCORE: 6-ALEXANDER SIGNATURE PANEL: The following modified sections: Eating - Score, Grooming - Score, Dressing - Upper Body - Score, Ron ssing - Lower Body - Score, Toileting - Score, Bladder Management - Score, Bowel Management - Score, Transfers: Bed, Chair, Wheelchair - Score, Transfers: Toilet - Score, Transfers: Shower - Score, Mirza sfers: Tub - Score, Locomotion: Walk - Score, Locomotion: Wheelchair - Score, Comprehension - Score, Expression - Score, Social Interaction - Score, Problem Solving - Score, Memory - Score were [electro nically] signed by Vannessa Anna CNA on TueSep 29 2018 00:56:49 GMT-0500 (Central Daylight Time)
[2018-09-29] MEDS: INSULIN GLARGINE 100 UNITS/ML SQ SCH (07:24)
[2018-09-29] MEDS: METOCLOPRAMIDE 5 MG TAB PO SCH ×4 (07:24→21:40)
[2018-09-29] MEDS: INSULIN -REGULAR HUMAN 50 UNIT/0.5 ML ML SQ SCH ×4 (07:30→21:42)
[2018-09-29] MEDS: ARFORMOTEROL TARTRATE 15 MCG/2 ML VIAL.NEB NEB SCH ×2 (07:40→20:00)
[2018-09-29] MEDS: PROMOD 30 ML DOSE PO SCH ×2 (08:00→20:00)
[2018-09-29] MEDS: FERROUS SULFATE 325 MG TAB PO SCH ×4 (08:00→21:41)
[2018-09-29] MEDS: TIOTROPIUM 5 SPRAYS/INHALER IH SCH (08:14)
[2018-09-29] MEDS: LACTOBACILLUS/ACIDOPHILUS TAB PO SCH ×2 (08:16→21:41)
[2018-09-29] MEDS: METOPROLOL TAR 50 MG TAB PO SCH ×2 (08:16→21:41)
[2018-09-29] MEDS: VITAMIN D 400 UNIT TAB PO SCH (08:16)
[2018-09-29] MEDS: APIXABAN 2.5 MG TABLET PO SCH ×2 (08:17→21:41)
[2018-09-29] MEDS: ASPIRIN EC 81 MG TAB PO SCH (08:17)
[2018-09-29] MEDS: predniSONE 5 MG TAB PO SCH (08:17)
[2018-09-29] MEDS: AMIODARONE HCL 200 MG TAB PO SCH (08:17)
[2018-09-29] MEDS: ISOSORBIDE MONO SR 30 MG TAB PO SCH (08:17)
[2018-09-29] MEDS: FUROSEMIDE 20 MG TABLET PO SCH ×2 (08:18→17:23)
--- NOTE | 2018-09-29 09:44 | P.RH.PN ---
Estimated Length of Stay: 12 Expected Discharge Date: 10/01/18 Discharge Disposition Plan: Home Family Support: Yes Retirement Goal: Mobility, Transfers, Self Care Vital Signs: Last Vital Signs Temp 98.2 F 09/29/18 06:40 Pulse 74 09/29/18 08:18 Resp 16 09/29/18 06:40 BP 152/64 H 09/29/18 08:18 Pulse Ox 99 09/29/18 06:40 Laboratory: Laboratory Last Values WBC 5.9 K/uL (4.3-10.9) 09/27/18 07:33 RBC 3.07 M/uL (3.86-4.86) L 09/27/18 07:33 Hgb 9.8 g/dL (12.0-15.0) L 09/27/18 07:33 Hct 29.0 % (36.0-45.0) L D 09/27/18 07:33 MCV 94.4 fL (80-100) 09/27/18 07:33 MCH 31.8 pg (27.0-35.0) 09/27/18 07:33 MCHC 33.7 g/dL (32.0-36.0) 09/27/18 07:33 RDW 16.8 % (12.1-15.2) H 09/27/18 07:33 Plt Count 234 K/uL (152-406) 09/27/18 07:33 MPV 7.5 fL (7.6-11.3) L D 09/27/18 07:33 Neutrophils % 55.5 % (41.7-73.7) 09/27/18 07:33 Lymphocytes % 30.8 % (15.3-44.8) 09/27/18 07:33 Monocytes % 10.1 % (3.3-12.3) 09/27/18 07:33 Eosinophils % 2.4 % (0-4.4) 09/27/18 07:33 Basophils % 1.2 % (0-1.3) 09/27/18 07:33 Absolute Neutrophils 3.3 K/uL (1.8-8.0) 09/27/18 07:33 Absolute Lymphocytes 1.8 K/uL (0.7-4.9) 09/27/18 07:33 Absolute Monocytes 0.6 K/uL (0.1-1.3) 09/27/18 07:33 Absolute Eosinophils 0.1 K/uL (0-0.5) 09/27/18 07:33 Absolute Basophils 0.1 K/uL (0-0.5) 09/27/18 07:33 Absolute Retic 0.10 M/uL (0.02-0.11) 09/22/18 06:14 Percent Retic 3.61 % (0.4-2.05) H 09/22/18 06:14 PT 11.5 SECONDS (9.5-12.5) 09/22/18 06:14 INR 0.97 09/22/18 06:14 APTT 25.6 SECONDS (24.3-36.9) 09/22/18 06:14 Sodium 143 mmol/L (136-145) 09/27/18 07:33 Potassium 3.5 mmol/L (3.5-5.1) 09/27/18 07:33 Chloride 105 mmol/L (98-107) 09/27/18 07:33 Carbon Dioxide 31 mmol/L (21-32) 09/27/18 07:33 BUN 13 mg/dL (7-18) 09/27/18 07:33 Creatinine 1.10 mg/dL (0.55-1.3) 09/27/18 07:33 Estimated GFR 47 mL/min (=/>90) L 09/27/18 07:33 Glucose 131 mg/dL (74-106) H 09/27/18 07:33 POC Glucose 138 mg/dl (65-120) H 09/29/18 06:46 Calcium 8.7 mg/dL (8.5-10.1) 09/27/18 07:33 Phosphorus 3.4 mg/dL (2.5-4.9) 09/23/18 05:55 Magnesium 2.1 mg/dL (1.8-2.4) 09/27/18 07:33 Iron 43.0 ug/dL (50-170) L 09/22/18 06:14 TIBC 269 ug/dL (250-460) 09/22/18 06:14 Transferrin 192 mg/dL (200-360) L 09/22/18 06:14 Transferrin % Sat 16.0 % (20.0-50.0) L 09/22/18 06:14 Ferritin 132.8 ng/mL (8-388) 09/22/18 06:14 Total Bilirubin 0.4 mg/dL (0.2-1.0) 09/22/18 06:14 AST 16 U/L (15-37) 09/22/18 06:14 ALT 17 U/L (12-78) 09/22/18 06:14 Alkaline Phosphatase 42 U/L (45-117) L 09/22/18 06:14 Lactate Dehydrogenase 229 U/L (84-246) 09/22/18 06:14 Serum Total Protein 5.2 g/dL (6.4-8.2) L D 09/22/18 06:14 Albumin 3.0 g/dL (3.4-5.0) L 09/27/18 07:33 Globulin 2.7 g/dL (2.3-3.5) 09/22/18 06:14 Albumin/Globulin Ratio 0.9 (1.1-1.8) L 09/22/18 06:14 Prealbumin 18.8 mg/dL (20-40) L 09/27/18 07:33 Vitamin B12 678 pg/mL (193-986) 09/22/18 06:14 Serum Folate 12.7 ng/mL (3.1-17.5) 09/22/18 06:14 Urine Color Yellow 09/20/18 18:05 Urine Appearance Clear 09/20/18 18:05 Urine pH 7.5 (5.0-7.0) H 09/20/18 18:05 Ur Specific [place] 1.010 (1.005-1.030) 09/20/18 18:05 Urine Ketones Negative (NEG) 09/20/18 18:05 Urine Blood Negative (NEG) 09/20/18 18:05 Urine Nitrite Negative (NEG) 09/20/18 18:05 Urine Bilirubin Negative (NEG) 09/20/18 18:05 Urine Urobilinogen 0.2 mg/dL (0.2-1.0) 09/20/18 18:05 Ur Leukocyte Esterase Negative (NEG) 09/20/18 18:05 Urine RBC <5 /HPF (NONE SEEN) 09/20/18 18:05 Urine WBC None seen /HPF (<5) 08/07/19 18:05 Ur Squamous Epith Cells <5 /HPF (NONE SEEN) 09/20/18 18:05 Urine Bacteria <20 /HPF (<20) 09/20/18 18:05 Urine Culture Reflexed Not needed 09/20/18 18:05 Urine Glucose 1+ (NEG) H 09/20/18 18:05 Urine Total Protein Negative (NEG) 09/20/18 18:05 ABO/Rh A POSITIVE 09/22/18 06:14 Antibody Screen Negative 09/22/18 06:14 Weight: 143 lb 8 oz Wound Present: Yes Closed Surgical Incision Present: Yes Negative Pressure Wound Therapy Present: No Physician Update: Hgb is 9.8 on hemocyte and ferrous sulfate. Sugars are better after lowering night time insulin. She is doing ok. Standby assistance 100'. Need O2, she desaturates easily. She has nausea. Will do ABG. Medical Issues: DVT Prophylaxis - Eliquis 2.5mg BID PO Functional Improvement: Patient has met all short-term goals at this time, and is progressing toward long-term goals. Patient's nausea seems to have improved over the last two days. Functional Improvement Occupational Therapy: Pt can benifit with further therapy to address pt's overall strength UB/LB by educating pt on energy conservation techniques for safety and using A/E as needed for bathing and dressing. Cont to increase pt's endurance and activity tolerance for adl tasks and for functional tasks and transfers. Summary: Patient's care plan and senior living goals have been reviewed and revised as necessary. Please see the Rehabilitation Signature page for all necessary signatures.
[2018-09-29 13:44] LABS: Arterial Blood Carboxyhemoglob 1.7 % (0-1.5); Blood Gas Oxyhemoglobin 94.8 % (94-97); Blood O2 Saturation 97.2 % (92-98.5)
--- NOTE | 2018-09-29 16:56 | FAST ---
SHIFT START DATE/TIME: 09/29/2018 07:00 (CDT) SHIFT END DATE/TIME: 09/29/2018 19:00 (CDT) NAME SUSANA YAO DATE OF : 1930 DATE OF ADMISSION: 09/20/2018 15:58 (CDT) PHONE: AGE: 88 N# [id number] GENDER: Female ENCOUNTER PHYSICIAN: Dr. Martin Carranza M.D. 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 EATING: EATING - STEP 1: Does the patient require the assistance of a person or device, or need extra time when eating? No. EATING - SCORE: 7-IND GROOMING: GROOMING - STEP 1: Does the patient require the assistance of a person or device, or need extra time when grooming? No. GROOMING - SCORE: 7-IND BATHING: Activity did not occur on this shift BATHING - SCORE: 0-UNK DRESSING - UPPER BODY: Activity did not occur on this shift ARTICLES SCORE Total number of steps: 0 DRESSING - UPPER BODY - SCORE: 0-UNK DRESSING - LOWER BODY: Activity did not occur on this shift ARTICLES SCORE Total number of steps: 0 DRESSING - LOWER BODY - SCORE: 0-UNK TOILETING: TOILETING - STEP 1: Does the patient require the assistance of a person or device, or need extra time with toileting? Yes . TOILETING - STEP 2: Does the patient require the assistance of a helper? Yes. TOILETING - STEP 3: How much assistance does the patient require from the helper? Only supervision TOILETING - SCORE: 5-SUP BLADDER MANAGEMENT: BLADDER MANAGEMENT - STEP 1: Does the patient control the bladder completely and intentionally without equipment or devices or med ications, and is always continent? Yes. BLADDER MANAGEMENT - SCORE: 7-IND BLADDER MANAGEMENT - FREQUENCY OF ACCIDENTS: BLADDER MANAGEMENT(FA) - STEP 1: How many accidents has the patient had during the current shift? 0 BOWEL MANAGEMENT: BOWEL MANAGEMENT - STEP 1: Does the patient control bowels completely and intentionally without equipment devices or medications AND is always continent? Yes. BOWEL MANAGEMENT - SCORE: 7-IND BOWEL MANAGEMENT - FREQUENCY OF ACCIDENTS: BOWEL MANAGEMENT(FA) - STEP 1: How many accidents has the patient had during the current shift? 0 TRANSFERS: BED, CHAIR, WHEELCHAIR: TRANSFERS: BED, CHAIR, WHEELCHAIR - STEP 1: Does the patient require assistance of a person or device, or need extra time with bed, chair, or whe elchair transfers? Yes. TRANSFERS: BED, CHAIR, WHEELCHAIR - STEP 2: Does the patient require the assistance of a helper? Yes. TRANSFERS: BED, CHAIR, WHEELCHAIR - STEP 3: How much assistance does the patient require from the helper? Only supervision TRANSFERS: BED, CHAIR, WHEELCHAIR - SCORE: 5-SUP TRANSFERS: TOILET: TRANSFERS: TOILET - STEP 1: Does the patient require the assistance of a person or device, or need extra time with toilet transfe rs? Yes. TRANSFERS: TOILET - STEP 2: Does the patient require the assistance of a helper? Yes. TRANSFERS: TOILET - STEP 3: How much assistance does the patient require from the helper? Only supervision, cuing, coaxing, OR he lp to set out transfer equipment or to lock brakes and/or lift foot rests TRANSFERS: TOILET - SCORE: 5-SUP TRANSFERS: SHOWER: Activity did not occur on this shift TRANSFERS: SHOWER - SCORE: 0-UNK TRANSFERS: TUB: Activity did not occur on this shift TRANSFERS: TUB - SCORE: 0-UNK LOCOMOTION: WALK: Activity did not occur on this shift LOCOMOTION: WALK - SCORE: 0-UNK LOCOMOTION: WHEELCHAIR: Activity did not occur on this shift LOCOMOTION: WHEELCHAIR - SCORE: 0-UNK COMPREHENSION: COMPREHENSION - SCORE: 0-UNK EXPRESSION EXPRESSION - SCORE: 0-UNK SOCIAL INTERACTION: SOCIAL INTERACTION - SCORE: 0-UNK PROBLEM SOLVING: PROBLEM SOLVING - SCORE: 0-UNK MEMORY: MEMORY - SCORE: 0-UNK SIGNATURE PANEL: The following modified sections: Eating - Score, Grooming - Score, Bathing - Score, Dressing - Upper Body - Score, Dressing - Lower Body - Score, Toileting - Score, Bladder Management - Score, Bowel Man agement - Score, Transfers: Bed, Chair, Wheelchair - Score, Transfers: Toilet - Score, Transfers: Nimo wer - Score, Transfers: Tub - Score, Locomotion: Walk - Score, Locomotion: Wheelchair - Score, Compre hension - Score, Expression - Score, Social Interaction - Score, Problem Solving - Score, Memory - Sc ore were [electronically] signed by Mayelin Holbrook CNA on TueSep 29 2018 16:54:46 T-0500 (Centra l Daylight Time)
[2018-09-29] MEDS: LISINOPRIL 10 MG TAB PO SCH (21:41)
[2018-09-29] MEDS: SERTRALINE HCL 50 MG TAB PO SCH (21:41)
[2018-09-29] MEDS: LIDOCAINE 5% PATCH TOP SCH (21:43)
--- NOTE | 2018-09-30 02:39 | FAST ---
SHIFT START DATE/TIME: 09/29/2018 19:00 (CDT) SHIFT END DATE/TIME: 09/30/2018 07:00 (CDT) NAME SUSANA YAO DATE OF : 1930 DATE OF ADMISSION: 09/20/2018 15:58 (CDT) PHONE: AGE: 88 N# [id number] GENDER: Female ENCOUNTER PHYSICIAN: Dr. Martin Carranza M.D. 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 EATING: Activity did not occur on this shift EATING - SCORE: 0-UNK GROOMING: Comb/brush hair Oral care Wash, rinse, and dry face Wash, rinse, and dry hands GROOMING - STEP 1: Does the patient require the assistance of a person or device, or need extra time when grooming? Yes. GROOMING - STEP 2: Does the patient require the assistance of a helper? Yes. GROOMING - STEP 3: How much assistance does the patient require from the helper? Only prior equipment preparation/set up from the helper GROOMING - SCORE: 5-SUP BATHING: Activity did not occur on this shift BATHING - SCORE: 0-UNK DRESSING - UPPER BODY: Patient is not dressing in public clothing ARTICLES SCORE Total number of steps: 0 DRESSING - UPPER BODY - SCORE: 0-UNK DRESSING - LOWER BODY: Patient is not dressing in public clothing ARTICLES SCORE Total number of steps: 0 DRESSING - LOWER BODY - SCORE: 0-UNK TOILETING: TOILETING - STEP 1: Does the patient require the assistance of a person or device, or need extra time with toileting? Yes . TOILETING - STEP 2: Does the patient require the assistance of a helper? Yes. TOILETING - STEP 3: How much assistance does the patient require from the helper? Hands-on assistance from the helper TOILETING - STEP 4: Of the 3 tasks: 1) Adjusting clothing prior to use, 2) Cleansing of perineal area, 3) Adjusting clot carli after use; How many tasks does the patient perform WITHOUT assistance of the helper? Three tasks with steadying assistance from the helper TOILETING - SCORE: 4-MIN BLADDER MANAGEMENT: BLADDER MANAGEMENT - STEP 1: Does the patient control the bladder completely and intentionally without equipment or devices or med ications, and is always continent? No. BLADDER MANAGEMENT - STEP 2: Does the patient require the assistance of a helper? Yes. BLADDER MANAGEMENT - STEP 3: How much assistance does the patient require from the helper? Only set-up of equipment - such as plac ing it within reach of the patient or emptying a device - to maintain either satisfactory voiding pat tern or managing an external device, such as an absorbent pad, ileal device, or catheter BLADDER MANAGEMENT - SCORE: 5-SUP BOWEL MANAGEMENT: Activity did not occur on this shift BOWEL MANAGEMENT - SCORE: 7-IND TRANSFERS: BED, CHAIR, WHEELCHAIR: TRANSFERS: BED, CHAIR, WHEELCHAIR - STEP 1: Does the patient require assistance of a person or device, or need extra time with bed, chair, or whe elchair transfers? Yes. TRANSFERS: BED, CHAIR, WHEELCHAIR - STEP 2: Does the patient require the assistance of a helper? Yes. TRANSFERS: BED, CHAIR, WHEELCHAIR - STEP 3: How much assistance does the patient require from the helper? Steadying/guiding assistance TRANSFERS: BED, CHAIR, WHEELCHAIR - SCORE: 4-MIN TRANSFERS: TOILET: TRANSFERS: TOILET - STEP 1: Does the patient require the assistance of a person or device, or need extra time with toilet transfe rs? Yes. TRANSFERS: TOILET - STEP 2: Does the patient require the assistance of a helper? Yes. TRANSFERS: TOILET - STEP 3: How much assistance does the patient require from the helper? Only supervision, cuing, coaxing, OR he lp to set out transfer equipment or to lock brakes and/or lift foot rests TRANSFERS: TOILET - SCORE: 5-SUP TRANSFERS: SHOWER: Activity did not occur on this shift TRANSFERS: SHOWER - SCORE: 0-UNK TRANSFERS: TUB: Activity did not occur on this shift TRANSFERS: TUB - SCORE: 0-UNK LOCOMOTION: WALK: Activity did not occur on this shift LOCOMOTION: WALK - SCORE: 0-UNK LOCOMOTION: WHEELCHAIR: Activity did not occur on this shift LOCOMOTION: WHEELCHAIR - SCORE: 0-UNK COMPREHENSION: COMPREHENSION: TYPE: Both COMPREHENSION - STEP 1: Does the patient require help from a person or device, or need extra time to understand complex and a bstract ideas (such as current events, finances, discharge planning, medical issues, relationships, e tc)? No. COMPREHENSION - STEP 2: Does the patient need extra time, require an assistive device (such as glasses for visual comprehensi on or a hearing aid for auditory comprehension) or does s/he have mild difficulty understanding compl ex and abstract information? Yes. COMPREHENSION - SCORE: 6-ALEXANDER EXPRESSION EXPRESSION: TYPE: Both EXPRESSION - STEP 1: Does the patient require help from a person or device, or need extra time expressing complex and abst ract ideas (such as current events, finances, discharge planning, medical issues, relationships, etc) ? No. EXPRESSION - STEP 2: Does the patient need extra time, require an assistive device (such as augmentive communication syste m or a communication board), OR does s/he have mild difficulty expressing complex and abstract ideas (including mild dysarthria or mild word-find problems)? No. EXPRESSION - SCORE: 7-IND SOCIAL INTERACTION: SOCIAL INTERACTION - STEP 1: Does the patient require a helper to interact with others in social and therapeutic situations? No. SOCIAL INTERACTION - STEP 2: Does the patient need extra time in social situations, OR does s/he interact with staff, other patien ts, and family members ONLY in structured environments, OR does s/he require medication for social in teraction? Yes, patient needs extra time SOCIAL INTERACTION - SCORE: 6-ALEXANDER PROBLEM SOLVING: PROBLEM SOLVING - STEP 1: Does the patient need help from a person or device, or need extra time to solve complex problems such as managing a checking account or confronting interpersonal problems? Yes. PROBLEM SOLVING - STEP 2: Does the patient solve basic routine problems half or more of the time? Yes. PROBLEM SOLVING - STEP 3: How often does the patient need help to solve basic routine problems? Less than 10% of the time PROBLEM SOLVING - SCORE: 5-SUP MEMORY: MEMORY - STEP 1: Does the patient need help from a person or device, or need extra time to remember frequently encount ered people, daily routines, and executing requests? No. MEMORY - STEP 2: Does the patient have slight difficulty recognizing frequently encountered people, daily routines, or executing requests without the need for repetition or using self-initiated or environmental cues to remember? Yes. MEMORY - SCORE: 6-ALEXANDER
[2018-09-30] MEDS: INSULIN -REGULAR HUMAN 50 UNIT/0.5 ML ML SQ SCH ×4 (07:30→21:00)
[2018-09-30] MEDS: ARFORMOTEROL TARTRATE 15 MCG/2 ML VIAL.NEB NEB SCH ×2 (07:30→20:00)
[2018-09-30] MEDS: METOCLOPRAMIDE 5 MG TAB PO SCH ×4 (07:37→21:24)
[2018-09-30] MEDS: FERROUS SULFATE 325 MG TAB PO SCH ×2 (08:00→20:00)
[2018-09-30] MEDS: PROMOD 30 ML DOSE PO SCH ×2 (08:00→20:00)
[2018-09-30] MEDS: TIOTROPIUM 5 SPRAYS/INHALER IH SCH (08:37)
[2018-09-30] MEDS: INSULIN GLARGINE 100 UNITS/ML SQ SCH (08:41)
[2018-09-30] MEDS: FUROSEMIDE 20 MG TABLET PO SCH ×2 (08:42→16:45)
[2018-09-30] MEDS: METOPROLOL TAR 50 MG TAB PO SCH ×2 (08:44→20:05)
[2018-09-30] MEDS: ISOSORBIDE MONO SR 30 MG TAB PO SCH (08:44)
[2018-09-30] MEDS: AMIODARONE HCL 200 MG TAB PO SCH (08:44)
[2018-09-30] MEDS: ASPIRIN EC 81 MG TAB PO SCH (08:45)
[2018-09-30] MEDS: APIXABAN 2.5 MG TABLET PO SCH ×2 (08:45→20:05)
[2018-09-30] MEDS: predniSONE 5 MG TAB PO SCH (08:45)
[2018-09-30] MEDS: LACTOBACILLUS/ACIDOPHILUS TAB PO SCH ×2 (08:45→20:05)
[2018-09-30] MEDS: VITAMIN D 400 UNIT TAB PO SCH (08:49)
[2018-09-30] MEDS: LIDOCAINE 5% PATCH TOP SCH (20:06)
[2018-09-30] MEDS: SERTRALINE HCL 50 MG TAB PO SCH (20:08)
[2018-09-30] MEDS: LISINOPRIL 10 MG TAB PO SCH (21:26)
--- NOTE | 2018-10-01 00:45 | FAST ---
SHIFT START DATE/TIME: 09/30/2018 19:00 (CDT) SHIFT END DATE/TIME: 10/01/2018 07:00 (CDT) NAME SUSANA YAO DATE OF : 1930 DATE OF ADMISSION: 09/20/2018 15:58 (CDT) PHONE: AGE: 88 N# [id number] GENDER: Female ENCOUNTER PHYSICIAN: Dr. Martin Carranza M.D. 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 EATING: Activity did not occur on this shift EATING - SCORE: 0-UNK GROOMING: Wash, rinse, and dry hands GROOMING - STEP 1: Does the patient require the assistance of a person or device, or need extra time when grooming? Yes. GROOMING - STEP 2: Does the patient require the assistance of a helper? Yes. GROOMING - STEP 3: How much assistance does the patient require from the helper? Only prior equipment preparation/set up from the helper GROOMING - SCORE: 5-SUP BATHING: Activity did not occur on this shift BATHING - SCORE: 0-UNK DRESSING - UPPER BODY: Patient is not dressing in public clothing ARTICLES SCORE Total number of steps: 0 DRESSING - UPPER BODY - SCORE: 0-UNK DRESSING - LOWER BODY: Patient is not dressing in public clothing ARTICLES SCORE Total number of steps: 0 DRESSING - LOWER BODY - SCORE: 0-UNK TOILETING: TOILETING - STEP 1: Does the patient require the assistance of a person or device, or need extra time with toileting? Yes . TOILETING - STEP 2: Does the patient require the assistance of a helper? Yes. TOILETING - STEP 3: How much assistance does the patient require from the helper? Only supervision TOILETING - SCORE: 5-SUP BLADDER MANAGEMENT: BLADDER MANAGEMENT - STEP 1: Does the patient control the bladder completely and intentionally without equipment or devices or med ications, and is always continent? Yes. BLADDER MANAGEMENT - SCORE: 7-IND BOWEL MANAGEMENT: BOWEL MANAGEMENT - STEP 1: Does the patient control bowels completely and intentionally without equipment devices or medications AND is always continent? No. BOWEL MANAGEMENT - STEP 2: Does the patient require the assistance of a helper? No, patient requires medication for control such as stool softeners, suppositories, laxatives, enemas, or OTC medications BOWEL MANAGEMENT - SCORE: 6-ALEXANDER TRANSFERS: BED, CHAIR, WHEELCHAIR: TRANSFERS: BED, CHAIR, WHEELCHAIR - STEP 1: Does the patient require assistance of a person or device, or need extra time with bed, chair, or whe elchair transfers? Yes. TRANSFERS: BED, CHAIR, WHEELCHAIR - STEP 2: Does the patient require the assistance of a helper? Yes. TRANSFERS: BED, CHAIR, WHEELCHAIR - STEP 3: How much assistance does the patient require from the helper? Steadying/guiding assistance TRANSFERS: BED, CHAIR, WHEELCHAIR - SCORE: 4-MIN TRANSFERS: TOILET: TRANSFERS: TOILET - STEP 1: Does the patient require the assistance of a person or device, or need extra time with toilet transfe rs? Yes. TRANSFERS: TOILET - STEP 2: Does the patient require the assistance of a helper? No. Patient only requires an assistive device pollack ch as a grab bar or special seat, OR s/he takes more than reasonable time to perform toilet transfers , OR there is a safety concern when s/he performs toilet transfers. TRANSFERS: TOILET - SCORE: 6-ALEXANDER TRANSFERS: SHOWER: Activity did not occur on this shift TRANSFERS: SHOWER - SCORE: 0-UNK TRANSFERS: TUB: Activity did not occur on this shift TRANSFERS: TUB - SCORE: 0-UNK LOCOMOTION: WALK: Activity did not occur on this shift LOCOMOTION: WALK - SCORE: 0-UNK LOCOMOTION: WHEELCHAIR: Activity did not occur on this shift LOCOMOTION: WHEELCHAIR - SCORE: 0-UNK COMPREHENSION: COMPREHENSION: TYPE: Both COMPREHENSION - STEP 1: Does the patient require help from a person or device, or need extra time to understand complex and a bstract ideas (such as current events, finances, discharge planning, medical issues, relationships, e tc)? No. COMPREHENSION - STEP 2: Does the patient need extra time, require an assistive device (such as glasses for visual comprehensi on or a hearing aid for auditory comprehension) or does s/he have mild difficulty understanding compl ex and abstract information? Yes. COMPREHENSION - SCORE: 6-ALEXANDER EXPRESSION EXPRESSION: TYPE: Both EXPRESSION - STEP 1: Does the patient require help from a person or device, or need extra time expressing complex and abst ract ideas (such as current events, finances, discharge planning, medical issues, relationships, etc) ? No. EXPRESSION - STEP 2: Does the patient need extra time, require an assistive device (such as augmentive communication syste m or a communication board), OR does s/he have mild difficulty expressing complex and abstract ideas (including mild dysarthria or mild word-find problems)? Yes. EXPRESSION - SCORE: 6-ALEXANDER SOCIAL INTERACTION: SOCIAL INTERACTION - STEP 1: Does the patient require a helper to interact with others in social and therapeutic situations? No. SOCIAL INTERACTION - STEP 2: Does the patient need extra time in social situations, OR does s/he interact with staff, other patien ts, and family members ONLY in structured environments, OR does s/he require medication for social in teraction? Yes, patient requires medication for social interaction SOCIAL INTERACTION - SCORE: 6-ALEXANDER PROBLEM SOLVING: PROBLEM SOLVING - STEP 1: Does the patient need help from a person or device, or need extra time to solve complex problems such as managing a checking account or confronting interpersonal problems? Yes. PROBLEM SOLVING - STEP 2: Does the patient solve basic routine problems half or more of the time? Yes. PROBLEM SOLVING - STEP 3: How often does the patient need help to solve basic routine problems? Less than 10% of the time PROBLEM SOLVING - SCORE: 5-SUP MEMORY: MEMORY - STEP 1: Does the patient need help from a person or device, or need extra time to remember frequently encount ered people, daily routines, and executing requests? No. MEMORY - STEP 2: Does the patient have slight difficulty recognizing frequently encountered people, daily routines, or executing requests without the need for repetition or using self-initiated or environmental cues to remember? Yes. MEMORY - SCORE: 6-ALEXANDER SIGNATURE PANEL: The following modified sections: Eating - Score, Grooming - Score, Dressing - Upper Body - Score, Ron ssing - Lower Body - Score, Toileting - Score, Bladder Management - Score, Bowel Management - Score, Transfers: Bed, Chair, Wheelchair - Score, Transfers: Toilet - Score, Transfers: Shower - Score, Mirza sfers: Tub - Score, Locomotion: Walk - Score, Locomotion: Wheelchair - Score, Comprehension - Score, Expression - Score, Social Interaction - Score, Problem Solving - Score, Memory - Score were [electro nically] signed by Vannessa Anna CNA on TueOct 01 2018 00:44:11 GMT-0500 (Central Daylight Time)
[2018-10-01] MEDS: METOCLOPRAMIDE 5 MG TAB PO SCH ×4 (07:19→21:25)
[2018-10-01] MEDS: INSULIN -REGULAR HUMAN 50 UNIT/0.5 ML ML SQ SCH ×4 (07:30→21:00)
[2018-10-01] MEDS: ARFORMOTEROL TARTRATE 15 MCG/2 ML VIAL.NEB NEB SCH ×2 (07:31→20:00)
[2018-10-01] MEDS: PROMOD 30 ML DOSE PO SCH ×2 (08:00→19:45)
[2018-10-01] MEDS: FERROUS SULFATE 325 MG TAB PO SCH ×2 (08:00→19:47)
[2018-10-01] MEDS: AMIODARONE HCL 200 MG TAB PO SCH (08:10)
[2018-10-01] MEDS: predniSONE 5 MG TAB PO SCH (08:10)
[2018-10-01] MEDS: LACTOBACILLUS/ACIDOPHILUS TAB PO SCH ×2 (08:10→19:43)
[2018-10-01] MEDS: ASPIRIN EC 81 MG TAB PO SCH (08:10)
[2018-10-01] MEDS: VITAMIN D 400 UNIT TAB PO SCH (08:10)
[2018-10-01] MEDS: ISOSORBIDE MONO SR 30 MG TAB PO SCH (08:11)
[2018-10-01] MEDS: METOPROLOL TAR 50 MG TAB PO SCH ×2 (08:11→19:42)
[2018-10-01] MEDS: APIXABAN 2.5 MG TABLET PO SCH ×2 (08:11→19:43)
[2018-10-01] MEDS: TIOTROPIUM 5 SPRAYS/INHALER IH SCH (08:12)
[2018-10-01] MEDS: FUROSEMIDE 20 MG TABLET PO SCH ×2 (08:12→16:48)
[2018-10-01] MEDS: INSULIN GLARGINE 100 UNITS/ML SQ SCH (09:07)
[2018-10-01] MEDS: LIDOCAINE 5% PATCH TOP SCH (21:00)
[2018-10-01] MEDS: LISINOPRIL 10 MG TAB PO SCH (21:21)
[2018-10-01] MEDS: SERTRALINE HCL 50 MG TAB PO SCH (21:25)
--- NOTE | 2018-10-02 02:29 | FAST ---
SHIFT START DATE/TIME: 10/01/2018 19:00 (CDT) SHIFT END DATE/TIME: 10/02/2018 07:00 (CDT) NAME SUSANA YAO DATE OF : 1930 DATE OF ADMISSION: 09/20/2018 15:58 (CDT) PHONE: AGE: 88 N# [id number] GENDER: Female ENCOUNTER PHYSICIAN: Dr. Martin Carranza M.D. 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 EATING: Activity did not occur on this shift EATING - SCORE: 0-UNK GROOMING: Wash, rinse, and dry hands GROOMING - STEP 1: Does the patient require the assistance of a person or device, or need extra time when grooming? Yes. GROOMING - STEP 2: Does the patient require the assistance of a helper? Yes. GROOMING - STEP 3: How much assistance does the patient require from the helper? Only prior equipment preparation/set up from the helper GROOMING - SCORE: 5-SUP BATHING: Activity did not occur on this shift BATHING - SCORE: 0-UNK DRESSING - UPPER BODY: Patient is not dressing in public clothing ARTICLES SCORE Total number of steps: 0 DRESSING - UPPER BODY - SCORE: 0-UNK DRESSING - LOWER BODY: Patient is not dressing in public clothing ARTICLES SCORE Total number of steps: 0 DRESSING - LOWER BODY - SCORE: 0-UNK TOILETING: TOILETING - STEP 1: Does the patient require the assistance of a person or device, or need extra time with toileting? Yes . TOILETING - STEP 2: Does the patient require the assistance of a helper? Yes. TOILETING - STEP 3: How much assistance does the patient require from the helper? Only supervision TOILETING - SCORE: 5-SUP BLADDER MANAGEMENT: BLADDER MANAGEMENT - STEP 1: Does the patient control the bladder completely and intentionally without equipment or devices or med ications, and is always continent? No. BLADDER MANAGEMENT - STEP 2: Does the patient require the assistance of a helper? No, patient requires and independently uses an a ssistive device, such as a urinal, bedpan, bedside commode, catheter, absorbent pad, or collecting de vice BLADDER MANAGEMENT - SCORE: 6-ALEXANDER BOWEL MANAGEMENT: BOWEL MANAGEMENT - STEP 1: Does the patient control bowels completely and intentionally without equipment devices or medications AND is always continent? No. BOWEL MANAGEMENT - STEP 2: Does the patient require the assistance of a helper? No, patient requires medication for control such as stool softeners, suppositories, laxatives, enemas, or OTC medications BOWEL MANAGEMENT - SCORE: 6-ALEXANDER TRANSFERS: BED, CHAIR, WHEELCHAIR: TRANSFERS: BED, CHAIR, WHEELCHAIR - STEP 1: Does the patient require assistance of a person or device, or need extra time with bed, chair, or whe elchair transfers? Yes. TRANSFERS: BED, CHAIR, WHEELCHAIR - STEP 2: Does the patient require the assistance of a helper? No. Patient only requires an assistive device fo r bed, chair, wheelchair transfers such as a sliding board, grab bar, or brace, OR s/he takes more th an reasonable time, OR there is a safety concern when s/he performs the transfers TRANSFERS: BED, CHAIR, WHEELCHAIR - SCORE: 6-ALEXANDER TRANSFERS: TOILET: TRANSFERS: TOILET - STEP 1: Does the patient require the assistance of a person or device, or need extra time with toilet transfe rs? Yes. TRANSFERS: TOILET - STEP 2: Does the patient require the assistance of a helper? No. Patient only requires an assistive device pollack ch as a grab bar or special seat, OR s/he takes more than reasonable time to perform toilet transfers , OR there is a safety concern when s/he performs toilet transfers. TRANSFERS: TOILET - SCORE: 6-ALEXANDER TRANSFERS: SHOWER: Activity did not occur on this shift TRANSFERS: SHOWER - SCORE: 0-UNK TRANSFERS: TUB: Activity did not occur on this shift TRANSFERS: TUB - SCORE: 0-UNK LOCOMOTION: WALK: Activity did not occur on this shift LOCOMOTION: WALK - SCORE: 0-UNK LOCOMOTION: WHEELCHAIR: Activity did not occur on this shift LOCOMOTION: WHEELCHAIR - SCORE: 0-UNK COMPREHENSION: COMPREHENSION: TYPE: Both COMPREHENSION - STEP 1: Does the patient require help from a person or device, or need extra time to understand complex and a bstract ideas (such as current events, finances, discharge planning, medical issues, relationships, e tc)? Yes. COMPREHENSION - STEP 2: Does the patient require help to understand questions or statements about basic needs or ideas (such as hunger, thirst, sleep, safety, daily schedule, room location, or discomfort) half or more of the t kings? No. COMPREHENSION - STEP 3: How often does the patient need help to understand directions and conversation about basic needs? Les s than 10% of the time COMPREHENSION - SCORE: 5-SUP EXPRESSION EXPRESSION: TYPE: Both EXPRESSION - STEP 1: Does the patient require help from a person or device, or need extra time expressing complex and abst ract ideas (such as current events, finances, discharge planning, medical issues, relationships, etc) ? No. EXPRESSION - STEP 2: Does the patient need extra time, require an assistive device (such as augmentive communication syste m or a communication board), OR does s/he have mild difficulty expressing complex and abstract ideas (including mild dysarthria or mild word-find problems)? No. EXPRESSION - SCORE: 7-IND SOCIAL INTERACTION: SOCIAL INTERACTION - STEP 1: Does the patient require a helper to interact with others in social and therapeutic situations? No. SOCIAL INTERACTION - STEP 2: Does the patient need extra time in social situations, OR does s/he interact with staff, other patien ts, and family members ONLY in structured environments, OR does s/he require medication for social in teraction? Yes, patient requires medication for social interaction SOCIAL INTERACTION - SCORE: 6-ALEXANDER PROBLEM SOLVING: PROBLEM SOLVING - STEP 1: Does the patient need help from a person or device, or need extra time to solve complex problems such as managing a checking account or confronting interpersonal problems? No. PROBLEM SOLVING - STEP 2: Does the patient require extra time to make decisions or solve problems, OR does s/he have slight dif ficulty reading, initiating, or self-correcting in unfamiliar situations? Yes, patient needs extra ti me. PROBLEM SOLVING - SCORE: 6-ALEXANDER MEMORY: MEMORY - STEP 1: Does the patient need help from a person or device, or need extra time to remember frequently encount ered people, daily routines, and executing requests? No. MEMORY - STEP 2: Does the patient have slight difficulty recognizing frequently encountered people, daily routines, or executing requests without the need for repetition or using self-initiated or environmental cues to remember? Yes. MEMORY - SCORE: 6-ALEXANDER SIGNATURE PANEL: The following modified sections: Eating - Score, Grooming - Score, Dressing - Upper Body - Score, Ron ssing - Lower Body - Score, Toileting - Score, Bladder Management - Score, Bowel Management - Score, Transfers: Bed, Chair, Wheelchair - Score, Transfers: Toilet - Score, Transfers: Shower - Score, Mirza sfers: Tub - Score, Locomotion: Walk - Score, Locomotion: Wheelchair - Score, Comprehension - Score, Expression - Score, Social Interaction - Score, Problem Solving - Score, Memory - Score were [electro nically] signed by Vannessa Anna CNA on TueOct 02 2018 02:27:35 GMT-0500 (Central Daylight Time)
[2018-10-02] MEDS: INSULIN -REGULAR HUMAN 50 UNIT/0.5 ML ML SQ SCH ×4 (07:30→20:41)
[2018-10-02] MEDS: METOCLOPRAMIDE 5 MG TAB PO SCH ×4 (07:49→20:59)
[2018-10-02] MEDS: ARFORMOTEROL TARTRATE 15 MCG/2 ML VIAL.NEB NEB SCH ×2 (07:50→20:00)
[2018-10-02] MEDS: PROMOD 30 ML DOSE PO SCH ×2 (08:00→20:00)
[2018-10-02] MEDS: FERROUS SULFATE 325 MG TAB PO SCH ×2 (08:00→20:00)
[2018-10-02] MEDS: INSULIN GLARGINE 100 UNITS/ML SQ SCH (08:07)
[2018-10-02] MEDS: TIOTROPIUM 5 SPRAYS/INHALER IH SCH (08:29)
[2018-10-02] MEDS: ISOSORBIDE MONO SR 30 MG TAB PO SCH (08:29)
[2018-10-02] MEDS: METOPROLOL TAR 50 MG TAB PO SCH ×2 (08:29→21:00)
[2018-10-02] MEDS: VITAMIN D 400 UNIT TAB PO SCH (08:29)
[2018-10-02] MEDS: AMIODARONE HCL 200 MG TAB PO SCH (08:29)
[2018-10-02] MEDS: LACTOBACILLUS/ACIDOPHILUS TAB PO SCH ×2 (08:29→20:58)
[2018-10-02] MEDS: ASPIRIN EC 81 MG TAB PO SCH (08:29)
[2018-10-02] MEDS: FUROSEMIDE 20 MG TABLET PO SCH ×2 (08:30→16:42)
[2018-10-02] MEDS: predniSONE 5 MG TAB PO SCH (08:30)
[2018-10-02] MEDS: APIXABAN 2.5 MG TABLET PO SCH ×2 (08:30→20:59)
--- NOTE | 2018-10-02 15:08 | FAST ---
SHIFT START DATE/TIME: 10/02/2018 07:00 (CDT) SHIFT END DATE/TIME: 10/02/2018 19:00 (CDT) NAME SUSANA YAO DATE OF : 1930 DATE OF ADMISSION: 09/20/2018 15:58 (CDT) PHONE: AGE: 88 N# [id number] GENDER: Female ENCOUNTER PHYSICIAN: Dr. Martin Carranza M.D. 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 EATING: EATING - STEP 1: Does the patient require the assistance of a person or device, or need extra time when eating? Yes. EATING - STEP 2: Does the patient require the assistance of a helper? No, patient only requires an assistive device, O R s/he takes more than reasonable time to eat, OR there is a safety concern, OR s/he requires modifie d food consistency EATING - SCORE: 6-ALEXANDER GROOMING: Comb/brush hair Oral care GROOMING - STEP 1: Does the patient require the assistance of a person or device, or need extra time when grooming? Yes. GROOMING - STEP 2: Does the patient require the assistance of a helper? No. The patient only requires an assistive devic e, OR takes more than reasonable time to groom, OR there is a concern for safety as the patient groom s GROOMING - SCORE: 6-ALEXANDER BATHING: Activity did not occur on this shift BATHING - SCORE: 0-UNK DRESSING - UPPER BODY: Activity did not occur on this shift ARTICLES SCORE Total number of steps: 0 DRESSING - UPPER BODY - SCORE: 0-UNK DRESSING - LOWER BODY: Activity did not occur on this shift ARTICLES SCORE Total number of steps: 0 DRESSING - LOWER BODY - SCORE: 0-UNK TOILETING: TOILETING - STEP 1: Does the patient require the assistance of a person or device, or need extra time with toileting? Yes . TOILETING - STEP 2: Does the patient require the assistance of a helper? Yes. TOILETING - STEP 3: How much assistance does the patient require from the helper? Hands-on assistance from the helper TOILETING - STEP 4: Of the 3 tasks: 1) Adjusting clothing prior to use, 2) Cleansing of perineal area, 3) Adjusting clot carli after use; How many tasks does the patient perform WITHOUT assistance of the helper? Three tasks with steadying assistance from the helper TOILETING - SCORE: 4-MIN BLADDER MANAGEMENT: BLADDER MANAGEMENT - STEP 1: Does the patient control the bladder completely and intentionally without equipment or devices or med ications, and is always continent? No. BLADDER MANAGEMENT - STEP 2: Does the patient require the assistance of a helper? No, patient requires and independently uses an a ssistive device, such as a urinal, bedpan, bedside commode, catheter, absorbent pad, or collecting de vice BLADDER MANAGEMENT - SCORE: 6-ALEXANDER BOWEL MANAGEMENT: Activity did not occur on this shift BOWEL MANAGEMENT - SCORE: 7-IND TRANSFERS: BED, CHAIR, WHEELCHAIR: TRANSFERS: BED, CHAIR, WHEELCHAIR - STEP 1: Does the patient require assistance of a person or device, or need extra time with bed, chair, or whe elchair transfers? Yes. TRANSFERS: BED, CHAIR, WHEELCHAIR - STEP 2: Does the patient require the assistance of a helper? No. Patient only requires an assistive device fo r bed, chair, wheelchair transfers such as a sliding board, grab bar, or brace, OR s/he takes more th an reasonable time, OR there is a safety concern when s/he performs the transfers TRANSFERS: BED, CHAIR, WHEELCHAIR - SCORE: 6-ALEXANDER TRANSFERS: TOILET: TRANSFERS: TOILET - STEP 1: Does the patient require the assistance of a person or device, or need extra time with toilet transfe rs? Yes. TRANSFERS: TOILET - STEP 2: Does the patient require the assistance of a helper? Yes. TRANSFERS: TOILET - STEP 3: How much assistance does the patient require from the helper? Only supervision, cuing, coaxing, OR he lp to set out transfer equipment or to lock brakes and/or lift foot rests TRANSFERS: TOILET - SCORE: 5-SUP TRANSFERS: SHOWER: Activity did not occur on this shift TRANSFERS: SHOWER - SCORE: 0-UNK TRANSFERS: TUB: Activity did not occur on this shift TRANSFERS: TUB - SCORE: 0-UNK LOCOMOTION: WALK: Activity did not occur on this shift LOCOMOTION: WALK - SCORE: 0-UNK LOCOMOTION: WHEELCHAIR: Activity did not occur on this shift LOCOMOTION: WHEELCHAIR - SCORE: 0-UNK COMPREHENSION: COMPREHENSION: TYPE: Both COMPREHENSION - STEP 1: Does the patient require help from a person or device, or need extra time to understand complex and a bstract ideas (such as current events, finances, discharge planning, medical issues, relationships, e tc)? No. COMPREHENSION - STEP 2: Does the patient need extra time, require an assistive device (such as glasses for visual comprehensi on or a hearing aid for auditory comprehension) or does s/he have mild difficulty understanding compl ex and abstract information? Yes. COMPREHENSION - SCORE: 6-ALEXANDER EXPRESSION EXPRESSION: TYPE: Both EXPRESSION - STEP 1: Does the patient require help from a person or device, or need extra time expressing complex and abst ract ideas (such as current events, finances, discharge planning, medical issues, relationships, etc) ? No. EXPRESSION - STEP 2: Does the patient need extra time, require an assistive device (such as augmentive communication syste m or a communication board), OR does s/he have mild difficulty expressing complex and abstract ideas (including mild dysarthria or mild word-find problems)? Yes. EXPRESSION - SCORE: 6-ALEXANDER SOCIAL INTERACTION: SOCIAL INTERACTION - STEP 1: Does the patient require a helper to interact with others in social and therapeutic situations? No. SOCIAL INTERACTION - STEP 2: Does the patient need extra time in social situations, OR does s/he interact with staff, other patien ts, and family members ONLY in structured environments, OR does s/he require medication for social in teraction? No. SOCIAL INTERACTION - SCORE: 7-IND PROBLEM SOLVING: PROBLEM SOLVING - STEP 1: Does the patient need help from a person or device, or need extra time to solve complex problems such as managing a checking account or confronting interpersonal problems? No. PROBLEM SOLVING - STEP 2: Does the patient require extra time to make decisions or solve problems, OR does s/he have slight dif ficulty reading, initiating, or self-correcting in unfamiliar situations? Yes, patient needs extra ti me. PROBLEM SOLVING - SCORE: 6-ALEXANDER MEMORY: MEMORY - STEP 1: Does the patient need help from a person or device, or need extra time to remember frequently encount ered people, daily routines, and executing requests? No. MEMORY - STEP 2: Does the patient have slight difficulty recognizing frequently encountered people, daily routines, or executing requests without the need for repetition or using self-initiated or environmental cues to remember? No. MEMORY - SCORE: 7-IND SIGNATURE PANEL: The following modified sections: Eating - Score, Grooming - Score, Bathing - Score, Dressing - Upper Body - Score, Dressing - Lower Body - Score, Toileting - Score, Bladder Management - Score, Bowel Man agement - Score, Transfers: Bed, Chair, Wheelchair - Score, Transfers: Toilet - Score, Transfers: Nimo wer - Score, Transfers: Tub - Score, Locomotion: Walk - Score, Locomotion: Wheelchair - Score, Compre hension - Score, Expression - Score, Social Interaction - Score, Problem Solving - Score, Memory - Sc ore were [electronically] signed by Lamonte Pratt on TueOct 02 2018 15:07:28 GMT-0500 (Central Daylight Time)
--- NOTE | 2018-10-02 15:43 | FAST ---
ENCOUNTER DATE AND TIME: 10/02/2018 08:00 (CDT) NAME SUSANA YAO DATE OF : 1930 DATE OF ADMISSION: 09/20/2018 15:58 (CDT) PHONE: AGE: 88 N# [id number] GENDER: Female ENCOUNTER PHYSICIAN: Dr. Martin Carranza M.D. 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 EATING: Activity did not occur on this shift EATING - SCORE: 0-UNK GROOMING: Activity did not occur on this shift GROOMING - SCORE: 0-UNK BATHING: Activity did not occur on this shift BATHING - SCORE: 0-UNK DRESSING - UPPER BODY: Activity did not occur on this shift Patient is not dressing in public clothing ARTICLES SCORE Total number of steps: 0 DRESSING - UPPER BODY - SCORE: 0-UNK DRESSING - LOWER BODY: Activity did not occur on this shift Patient is not dressing in public clothing ARTICLES SCORE Total number of steps: 0 DRESSING - LOWER BODY - SCORE: 0-UNK TOILETING: Activity did not occur on this shift TOILETING - SCORE: 0-UNK BLADDER MANAGEMENT: Activity did not occur on this shift BLADDER MANAGEMENT - SCORE: 7-IND BOWEL MANAGEMENT: Activity did not occur on this shift BOWEL MANAGEMENT - SCORE: 7-IND TRANSFERS: BED, CHAIR, WHEELCHAIR: TRANSFERS: BED, CHAIR, WHEELCHAIR - STEP 1: Does the patient require assistance of a person or device, or need extra time with bed, chair, or whe elchair transfers? Yes. TRANSFERS: BED, CHAIR, WHEELCHAIR - STEP 2: Does the patient require the assistance of a helper? No. Patient only requires an assistive device fo r bed, chair, wheelchair transfers such as a sliding board, grab bar, or brace, OR s/he takes more th an reasonable time, OR there is a safety concern when s/he performs the transfers TRANSFERS: BED, CHAIR, WHEELCHAIR - SCORE: 6-ALEXANDER TRANSFERS: TOILET: Activity did not occur on this shift TRANSFERS: TOILET - SCORE: 0-UNK TRANSFERS: SHOWER: Activity did not occur on this shift TRANSFERS: SHOWER - SCORE: 0-UNK TRANSFERS: TUB: Activity did not occur on this shift TRANSFERS: TUB - SCORE: 0-UNK LOCOMOTION: WALK: HOUSEHOLD EXCEPTION: Patient walks at least 50 feet independently (with or without a device) LOCOMOTION: WALK - SCORE: 5-SUP LOCOMOTION: WHEELCHAIR: Activity did not occur on this shift LOCOMOTION: WHEELCHAIR - SCORE: 0-UNK LOCOMOTION: STAIRS: Activity did not occur on this shift LOCOMOTION: STAIRS - SCORE: 0-UNK COMPREHENSION: COMPREHENSION - SCORE: 0-UNK EXPRESSION EXPRESSION - SCORE: 0-UNK SOCIAL INTERACTION: SOCIAL INTERACTION - SCORE: 0-UNK PROBLEM SOLVING: PROBLEM SOLVING - SCORE: 0-UNK MEMORY: MEMORY - SCORE: 0-UNK SIGNATURE PANEL: The following modified sections: Transfers: Bed, Chair, Wheelchair - Score, Transfers: Toilet - Score , Locomotion: Walk - Score, Locomotion: Wheelchair - Score, Locomotion: Stairs - Score were [electron icaleland] signed by Can Justin PT on TueOct 02 2018 15:42:04 T-0500 (Central Daylight Time)
--- NOTE | 2018-10-02 18:38 | R.PN ---
ENCOUNTER DATE AND TIME: 10/02/2018 18:35 (CDT) NAME SUSANA YAO DATE OF : 1930 DATE OF ADMISSION: 09/20/2018 15:58 (CDT) Abdominal aortic aneurysm (I71.4)CHIEF COMPLAINT: Debility and abdominal aortic aneurysm. SUBJECTIVE: Pt denied any depression. Pt denied any Shortness of Breath. Ambulated 410' with modified independence using a rollator. VITAL SIGNS Temperature: 97.6 F SBP/DBP: 129/58 Pulse: 75 Resp: 14 MEDICATION ALLERGIES: No Known Drug Allergies (NKDA) ENVIRONMENTAL ALLERGIES: - Substance Allergies None Known - Other Allergies None Known NURSING: - Shower allowing shower - Lab Results blood Sugar Check ACHS - Bladder care per protocol - Skin care per protocol ACTIVITIES OOB only with supervision THERAPIES: - Orthotics/Prosthetics Orthotic Evaluation. Splinting/Casting. - Dietary and Nutrition Adequate Nutrition. Nutritional Education. Nutritional Supplements. PHYSICAL EXAM - Gen Alert and awake Lying in bed No apparent distress Oriented to: person, time, and place - Skin No skin breakdown. No abnormalities - Eyes No abnormalities - ENMT No abnormalities - Neck No abnormalities - CVS RRR - Chest No abnormalities - Abd Soft - GI nondistended Deferred - No abnormalities - Ext No significant edema - MSK 4/5 weakness in both lower extremities. - Neuro No focal deficits - Psych No abnormalities ASSESSMENT: Pt. 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 was independent/mod-I in Self-Care , Sphincter Control, Transfers Control, Locomotion, Communication, and Social Cognition; and she had good Sphincter Control.Currently, she has deficits of Transfers Control, Locomotion, Communication, S ocial Cognition, Endurance, Balance, Safety Awareness, and Self-Care.Pt. is now referred to [facility] for acute in-patient rehabilitation in order to maximize patient's functiona l independence in activities of daily living, strength, ROM, and mobility.- Rehab Goal Patient has realistic goal of being discharged at assistance level 6-Shara to reside at Home with Fam pamela/Relatives. MDM/PLAN: - Physical Therapy Gait dysfunction - to improve, our physical therapists will perform initial evaluation of pt's statu s upon admission and devise an individualized program for Gait Training, and Wheel Chair mobility Inability to transfer - to improve, our physical therapists will perform initial evaluation of pt's status upon admission and devise an individualized program for Bed mobility Need for home safety evaluation - to improve, our physical therapists will perform initial evaluatio n of pt's status upon admission and devise an individualized program for Home Evaluation Need in caregiver upon discharge - to improve, our physical therapists will perform initial evaluati on of pt's status upon admission and devise an individualized program for Caregiver Training New precaution - to improve, our physical therapists will perform initial evaluation of pt's status upon admission and devise an individualized program for Patient precaution education Poor balance - to improve, our physical therapists will perform initial evaluation of pt's status up on admission and devise an individualized program for Balance Training Poor endurance - to improve, our physical therapists will perform initial evaluation of pt's status upon admission and devise an individualized program for Endurance Training Weakness - to improve, our physical therapists will perform initial evaluation of pt's status upon a dmission and devise an individualized program for Aquatic Therapy, Neuromuscular Reeducation, and Str engthening Achieving independence - to improve, our physical therapists will perform initial evaluation of pt's status upon admission and devise an individualized program for Community Reintegration Activities - Occupational Therapy ADL deficits - to improve, our occupation therapists will perform initial evaluation of pt's status upon admission and devise an individualized program for Bathing, Bed mobility, Community Reintegratio n, Cooking, Dressing, Eating, Fine Motor Skills, Grooming, Homemaking, Kitchen Mobility, Laundry, Pat ient Education, Safety Awareness, Splinting - Positioning, Transfers(Toilet, Tub, Shower), and Wheel Chair Management Cognitive deficits - to improve, our occupation therapists will perform initial evaluation of pt's s tatus upon admission and devise an individualized program for Cognition - orientation Need for morning caregiver - to improve, our occupation therapists will perform initial evaluation of pt's status upon admission and devise an individualized program for Caregiver Training Weakness - to improve, our occupation therapists will perform initial evaluation of pt's status upon admission and devise an individualized program for Aquatic Therapy, Balance, Endurance, UE ROM, and UE strengthening - Other See attached MAR (Medication Administration Record) - Diet Type Continue Regular - Diet - Liquid Texture Continue Regular - Tube Feed Continue N/A - Lab Results blood Sugar Check ACHS - Bladder care per protocol - Skin care per protocol - Diet - Solid Texture Continue Regular - Shower allowing shower FUNCTIONAL STATUS: UPDATED AT WEEKLY TEAM CONFERENCE - Bladder Same accident frequency: 7-Ind - No accidents in the past 7 days - Bowel Same accident frequency: 7-Ind - No accidents in the past 7 days - Walking Same score based on distance walked: 0(N/A) - Wheelchair Same score based on distance traveled: 0(N/A) FUNCTIONAL STATUS: - Self-Care A. Eating Ind B. Grooming sup C. Bathing sup D. Dressing - Upper sup E. Dressing - Lower Dep F. Toileting modA - Sphincter Control G: Bladder control Ind H: Bowel control Ind - Transfers Control I. Bed/Chair/Wheelchair Aide J. Toilet Aide K. Tub/Shower Aide - Locomotion L. Walk/Wheelchair (B) Dep M. Stairs ADNO - Communication N. Comprehension (B) sup O. Expression (B) sup - Social Cognition P. Social Interaction sup Q. Problem Solving sup R. Memory sup - Endurance Poor - Balance Poor - Safety Awareness Poor CURRENT FUNC. DEFICITS: Transfers Control, Locomotion, Communication, Social Cognition, Endurance, Balance, Safety Awareness, and Self-Care SIGNATURE PANEL: (CDT)
[2018-10-02] MEDS: LISINOPRIL 10 MG TAB PO SCH (20:59)
[2018-10-02] MEDS: SERTRALINE HCL 50 MG TAB PO SCH (21:00)
[2018-10-02] MEDS: LIDOCAINE 5% PATCH TOP SCH (21:00)
--- NOTE | 2018-10-03 02:32 | FAST ---
SHIFT START DATE/TIME: 10/02/2018 19:00 (CDT) SHIFT END DATE/TIME: 10/03/2018 07:00 (CDT) NAME SUSANA YAO DATE OF : 1930 DATE OF ADMISSION: 09/20/2018 15:58 (CDT) PHONE: AGE: 88 N# [id number] GENDER: Female ENCOUNTER PHYSICIAN: Dr. Martin Carranza M.D. 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 EATING: Activity did not occur on this shift EATING - SCORE: 0-UNK GROOMING: Oral care Wash, rinse, and dry face Wash, rinse, and dry hands GROOMING - STEP 1: Does the patient require the assistance of a person or device, or need extra time when grooming? Yes. GROOMING - STEP 2: Does the patient require the assistance of a helper? No. The patient only requires an assistive devic e, OR takes more than reasonable time to groom, OR there is a concern for safety as the patient groom s GROOMING - SCORE: 6-ALEXANDER BATHING: Activity did not occur on this shift BATHING - SCORE: 0-UNK DRESSING - UPPER BODY: Patient is not dressing in public clothing ARTICLES SCORE Total number of steps: 0 DRESSING - UPPER BODY - SCORE: 0-UNK DRESSING - LOWER BODY: Patient is not dressing in public clothing ARTICLES SCORE Total number of steps: 0 DRESSING - LOWER BODY - SCORE: 0-UNK TOILETING: TOILETING - STEP 1: Does the patient require the assistance of a person or device, or need extra time with toileting? Yes . TOILETING - STEP 2: Does the patient require the assistance of a helper? Yes. TOILETING - STEP 3: How much assistance does the patient require from the helper? Only supervision TOILETING - SCORE: 5-SUP BLADDER MANAGEMENT: BLADDER MANAGEMENT - STEP 1: Does the patient control the bladder completely and intentionally without equipment or devices or med ications, and is always continent? No. BLADDER MANAGEMENT - STEP 2: Does the patient require the assistance of a helper? Yes. BLADDER MANAGEMENT - STEP 3: How much assistance does the patient require from the helper? Only set-up of equipment - such as plac ing it within reach of the patient or emptying a device - to maintain either satisfactory voiding pat tern or managing an external device, such as an absorbent pad, ileal device, or catheter BLADDER MANAGEMENT - SCORE: 5-SUP BOWEL MANAGEMENT: Activity did not occur on this shift BOWEL MANAGEMENT - SCORE: 7-IND TRANSFERS: BED, CHAIR, WHEELCHAIR: TRANSFERS: BED, CHAIR, WHEELCHAIR - STEP 1: Does the patient require assistance of a person or device, or need extra time with bed, chair, or whe elchair transfers? Yes. TRANSFERS: BED, CHAIR, WHEELCHAIR - STEP 2: Does the patient require the assistance of a helper? Yes. TRANSFERS: BED, CHAIR, WHEELCHAIR - STEP 3: How much assistance does the patient require from the helper? Steadying/guiding assistance TRANSFERS: BED, CHAIR, WHEELCHAIR - SCORE: 4-MIN TRANSFERS: TOILET: TRANSFERS: TOILET - STEP 1: Does the patient require the assistance of a person or device, or need extra time with toilet transfe rs? Yes. TRANSFERS: TOILET - STEP 2: Does the patient require the assistance of a helper? Yes. TRANSFERS: TOILET - STEP 3: How much assistance does the patient require from the helper? Only supervision, cuing, coaxing, OR he lp to set out transfer equipment or to lock brakes and/or lift foot rests TRANSFERS: TOILET - SCORE: 5-SUP TRANSFERS: SHOWER: Activity did not occur on this shift TRANSFERS: SHOWER - SCORE: 0-UNK TRANSFERS: TUB: Activity did not occur on this shift TRANSFERS: TUB - SCORE: 0-UNK LOCOMOTION: WALK: Activity did not occur on this shift LOCOMOTION: WALK - SCORE: 0-UNK LOCOMOTION: WHEELCHAIR: Activity did not occur on this shift LOCOMOTION: WHEELCHAIR - SCORE: 0-UNK COMPREHENSION: COMPREHENSION: TYPE: Both COMPREHENSION - STEP 1: Does the patient require help from a person or device, or need extra time to understand complex and a bstract ideas (such as current events, finances, discharge planning, medical issues, relationships, e tc)? No. COMPREHENSION - STEP 2: Does the patient need extra time, require an assistive device (such as glasses for visual comprehensi on or a hearing aid for auditory comprehension) or does s/he have mild difficulty understanding compl ex and abstract information? Yes. COMPREHENSION - SCORE: 6-ALEXANDER EXPRESSION EXPRESSION: TYPE: Both EXPRESSION - STEP 1: Does the patient require help from a person or device, or need extra time expressing complex and abst ract ideas (such as current events, finances, discharge planning, medical issues, relationships, etc) ? No. EXPRESSION - STEP 2: Does the patient need extra time, require an assistive device (such as augmentive communication syste m or a communication board), OR does s/he have mild difficulty expressing complex and abstract ideas (including mild dysarthria or mild word-find problems)? No. EXPRESSION - SCORE: 7-IND SOCIAL INTERACTION: SOCIAL INTERACTION - STEP 1: Does the patient require a helper to interact with others in social and therapeutic situations? No. SOCIAL INTERACTION - STEP 2: Does the patient need extra time in social situations, OR does s/he interact with staff, other patien ts, and family members ONLY in structured environments, OR does s/he require medication for social in teraction? Yes, patient needs extra time SOCIAL INTERACTION - SCORE: 6-ALEXANDER PROBLEM SOLVING: PROBLEM SOLVING - STEP 1: Does the patient need help from a person or device, or need extra time to solve complex problems such as managing a checking account or confronting interpersonal problems? Yes. PROBLEM SOLVING - STEP 2: Does the patient solve basic routine problems half or more of the time? Yes. PROBLEM SOLVING - STEP 3: How often does the patient need help to solve basic routine problems? Less than 10% of the time PROBLEM SOLVING - SCORE: 5-SUP MEMORY: MEMORY - STEP 1: Does the patient need help from a person or device, or need extra time to remember frequently encount ered people, daily routines, and executing requests? No. MEMORY - STEP 2: Does the patient have slight difficulty recognizing frequently encountered people, daily routines, or executing requests without the need for repetition or using self-initiated or environmental cues to remember? Yes. MEMORY - SCORE: 6-ALEXANDER
[2018-10-03 05:43] VITALS: BMI 24.0
[2018-10-03] MEDS: METOCLOPRAMIDE 5 MG TAB PO SCH ×2 (07:05→11:40)
[2018-10-03] MEDS: TIOTROPIUM 5 SPRAYS/INHALER IH SCH ×2 (07:07→08:41)
[2018-10-03] MEDS: INSULIN GLARGINE 100 UNITS/ML SQ SCH (07:23)
[2018-10-03] MEDS: FUROSEMIDE 20 MG TABLET PO SCH (07:25)
[2018-10-03] MEDS: METOPROLOL TAR 50 MG TAB PO SCH (07:25)
[2018-10-03] MEDS: AMIODARONE HCL 200 MG TAB PO SCH (07:26)
[2018-10-03] MEDS: ISOSORBIDE MONO SR 30 MG TAB PO SCH (07:27)
[2018-10-03] MEDS: INSULIN -REGULAR HUMAN 50 UNIT/0.5 ML ML SQ SCH ×2 (07:30→11:40)
[2018-10-03] MEDS: PROMOD 30 ML DOSE PO SCH (08:00)
[2018-10-03] MEDS: FERROUS SULFATE 325 MG TAB PO SCH (08:00)
[2018-10-03 08:06] VITALS: TEMP 97.2
[2018-10-03] MEDS: ASPIRIN EC 81 MG TAB PO SCH (08:43)
[2018-10-03] MEDS: VITAMIN D 400 UNIT TAB PO SCH (08:44)
[2018-10-03] MEDS: LACTOBACILLUS/ACIDOPHILUS TAB PO SCH (08:44)
[2018-10-03] MEDS: predniSONE 5 MG TAB PO SCH (08:44)
[2018-10-03] MEDS: APIXABAN 2.5 MG TABLET PO SCH (08:44)
[2018-10-03 08:54] VITALS: BP 136/59
[2018-10-03] MEDS: ARFORMOTEROL TARTRATE 15 MCG/2 ML VIAL.NEB NEB SCH (10:10)
[2018-10-03 11:34] VITALS: O2SAT 96
--- NOTE | 2018-10-03 12:18 | FAST ---
ENCOUNTER DATE AND TIME: 10/02/2018 08:00 (CDT) NAME SUSANA YAO DATE OF : 1930 DATE OF ADMISSION: 09/20/2018 15:58 (CDT) PHONE: AGE: 88 N# [id number] GENDER: Female ENCOUNTER PHYSICIAN: Dr. Martin Carranza M.D. 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 EATING: EATING - STEP 1: Does the patient require the assistance of a person or device, or need extra time when eating? No. EATING - SCORE: 7-IND GROOMING: Comb/brush hair Oral care Wash, rinse, and dry face Wash, rinse, and dry hands GROOMING - STEP 1: Does the patient require the assistance of a person or device, or need extra time when grooming? No. GROOMING - SCORE: 7-IND BATHING: Abdomen Buttocks Chest Left arm Left lower leg and foot Left upper leg Perineal area Right arm Right lower leg and foot Right upper leg BATHING - STEP 1: Does the patient require the assistance of a person or device, or need extra time when bathing? Yes. BATHING - STEP 2: Does the patient require the assistance of a helper? Yes. BATHING - STEP 3: How much assistance does the patient require from the helper? Only supervision, cuing, coaxing, instr uctions, encouragement BATHING - SCORE: 5-SUP DRESSING - UPPER BODY: T-shirt/pullover shirt (four steps) ARTICLES SCORE Total number of steps: 4 DRESSING - UPPER BODY - STEP 1: Does the patient require help from a person or device, or need extra time when dressing above the ju[address] st? No. DRESSING - UPPER BODY - SCORE: 7-IND DRESSING - LOWER BODY: Elastic waist pants (three steps) Slip-on shoe - Left foot (one step) Slip-on shoe - Right foot (one step) Underwear (three steps) ARTICLES SCORE Total number of steps: 8 DRESSING - LOWER BODY - STEP 1: Does the patient require help from a person or device, or need extra time when dressing below the juan st? Yes. DRESSING - LOWER BODY - STEP 2: Does the patient require the assistance of a helper? Yes. DRESSING - LOWER BODY - STEP 3: Does the helper touch the patient while dressing? No. DRESSING - LOWER BODY - SCORE: 5-SUP TOILETING: TOILETING - STEP 1: Does the patient require the assistance of a person or device, or need extra time with toileting? Yes . TOILETING - STEP 2: Does the patient require the assistance of a helper? No. TOILETING - SCORE: 6-ALEXANDER BLADDER MANAGEMENT: Activity did not occur on this shift BLADDER MANAGEMENT - SCORE: 7-IND BOWEL MANAGEMENT: Activity did not occur on this shift BOWEL MANAGEMENT - SCORE: 7-IND TRANSFERS: BED, CHAIR, WHEELCHAIR: Activity did not occur on this shift TRANSFERS: BED, CHAIR, WHEELCHAIR - SCORE: 0-UNK TRANSFERS: TOILET: TRANSFERS: TOILET - STEP 1: Does the patient require the assistance of a person or device, or need extra time with toilet transfe rs? Yes. TRANSFERS: TOILET - STEP 2: Does the patient require the assistance of a helper? No. Patient only requires an assistive device pollack ch as a grab bar or special seat, OR s/he takes more than reasonable time to perform toilet transfers , OR there is a safety concern when s/he performs toilet transfers. TRANSFERS: TOILET - SCORE: 6-ALEXANDER TRANSFERS: SHOWER: Activity did not occur on this shift TRANSFERS: SHOWER - SCORE: 0-UNK TRANSFERS: TUB: TRANSFERS: TUB - STEP 1: Does the patient require the assistance of a person or device, or need extra time with tub transfers? Yes. TRANSFERS: TUB - STEP 2: Does the patient require the assistance of a helper? No. Only requires the assistance of an assistive device, OR takes more than reasonable time, OR there is a concern for safety when s/he performs tub transfers TRANSFERS: TUB - SCORE: 6-ALEXANDER LOCOMOTION: WALK: Activity did not occur on this shift LOCOMOTION: WALK - SCORE: 0-UNK LOCOMOTION: WHEELCHAIR: Activity did not occur on this shift LOCOMOTION: WHEELCHAIR - SCORE: 0-UNK LOCOMOTION: STAIRS: Activity did not occur on this shift LOCOMOTION: STAIRS - SCORE: 0-UNK COMPREHENSION: COMPREHENSION: TYPE: Both COMPREHENSION - STEP 1: Does the patient require help from a person or device, or need extra time to understand complex and a bstract ideas (such as current events, finances, discharge planning, medical issues, relationships, e tc)? No. COMPREHENSION - STEP 2: Does the patient need extra time, require an assistive device (such as glasses for visual comprehensi on or a hearing aid for auditory comprehension) or does s/he have mild difficulty understanding compl ex and abstract information? Yes. COMPREHENSION - SCORE: 6-ALEXANDER EXPRESSION EXPRESSION: TYPE: Both EXPRESSION - STEP 1: Does the patient require help from a person or device, or need extra time expressing complex and abst ract ideas (such as current events, finances, discharge planning, medical issues, relationships, etc) ? No. EXPRESSION - STEP 2: Does the patient need extra time, require an assistive device (such as augmentive communication syste m or a communication board), OR does s/he have mild difficulty expressing complex and abstract ideas (including mild dysarthria or mild word-find problems)? No. EXPRESSION - SCORE: 7-IND SOCIAL INTERACTION: SOCIAL INTERACTION - STEP 1: Does the patient require a helper to interact with others in social and therapeutic situations? No. SOCIAL INTERACTION - STEP 2: Does the patient need extra time in social situations, OR does s/he interact with staff, other patien ts, and family members ONLY in structured environments, OR does s/he require medication for social in teraction? No. SOCIAL INTERACTION - SCORE: 7-IND PROBLEM SOLVING: PROBLEM SOLVING - STEP 1: Does the patient need help from a person or device, or need extra time to solve complex problems such as managing a checking account or confronting interpersonal problems? No. PROBLEM SOLVING - STEP 2: Does the patient require extra time to make decisions or solve problems, OR does s/he have slight dif ficulty reading, initiating, or self-correcting in unfamiliar situations? No. PROBLEM SOLVING - SCORE: 7-IND MEMORY: MEMORY - STEP 1: Does the patient need help from a person or device, or need extra time to remember frequently encount ered people, daily routines, and executing requests? No. MEMORY - STEP 2: Does the patient have slight difficulty recognizing frequently encountered people, daily routines, or executing requests without the need for repetition or using self-initiated or environmental cues to remember? No. MEMORY - SCORE: 7-IND SIGNATURE PANEL: The following modified sections: Eating - Score, Grooming - Score, Bathing - Score, Dressing - Upper Body - Score, Dressing - Lower Body - Score, Toileting - Score, Transfers: Bed, Chair, Wheelchair - S core, Transfers: Toilet - Score, Transfers: Shower - Score, Transfers: Tub - Score, Comprehension - S core, Expression - Score, Social Interaction - Score, Problem Solving - Score, Memory - Score were [e lectronically] signed by Doris Blanco OT on TueOct 03 2018 12:17:43 T-0500 ([place] [address])
--- NOTE | 2018-10-03 13:23 | FAST ---
SHIFT START DATE/TIME: 10/03/2018 07:00 (CDT) SHIFT END DATE/TIME: 10/03/2018 19:00 (CDT) NAME SUSANA YAO DATE OF : 1930 DATE OF ADMISSION: 09/20/2018 15:58 (CDT) PHONE: AGE: 88 N# [id number] GENDER: Female ENCOUNTER PHYSICIAN: Dr. Martin Carranza M.D. 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 EATING: EATING - STEP 1: Does the patient require the assistance of a person or device, or need extra time when eating? Yes. EATING - STEP 2: Does the patient require the assistance of a helper? No, patient only requires an assistive device, O R s/he takes more than reasonable time to eat, OR there is a safety concern, OR s/he requires modifie d food consistency EATING - SCORE: 6-ALEXANDER GROOMING: Activity did not occur on this shift GROOMING - SCORE: 0-UNK BATHING: Activity did not occur on this shift BATHING - SCORE: 0-UNK DRESSING - UPPER BODY: Activity did not occur on this shift ARTICLES SCORE Total number of steps: 0 DRESSING - UPPER BODY - SCORE: 0-UNK DRESSING - LOWER BODY: Activity did not occur on this shift ARTICLES SCORE Total number of steps: 0 DRESSING - LOWER BODY - SCORE: 0-UNK TOILETING: TOILETING - STEP 1: Does the patient require the assistance of a person or device, or need extra time with toileting? Yes . TOILETING - STEP 2: Does the patient require the assistance of a helper? Yes. TOILETING - STEP 3: How much assistance does the patient require from the helper? Hands-on assistance from the helper TOILETING - STEP 4: Of the 3 tasks: 1) Adjusting clothing prior to use, 2) Cleansing of perineal area, 3) Adjusting clot carli after use; How many tasks does the patient perform WITHOUT assistance of the helper? Three tasks with steadying assistance from the helper TOILETING - SCORE: 4-MIN BLADDER MANAGEMENT: BLADDER MANAGEMENT - STEP 1: Does the patient control the bladder completely and intentionally without equipment or devices or med ications, and is always continent? No. BLADDER MANAGEMENT - STEP 2: Does the patient require the assistance of a helper? No, patient requires and independently uses an a ssistive device, such as a urinal, bedpan, bedside commode, catheter, absorbent pad, or collecting de vice BLADDER MANAGEMENT - SCORE: 6-ALEXANDER BOWEL MANAGEMENT: Activity did not occur on this shift BOWEL MANAGEMENT - SCORE: 7-IND TRANSFERS: BED, CHAIR, WHEELCHAIR: TRANSFERS: BED, CHAIR, WHEELCHAIR - STEP 1: Does the patient require assistance of a person or device, or need extra time with bed, chair, or whe elchair transfers? Yes. TRANSFERS: BED, CHAIR, WHEELCHAIR - STEP 2: Does the patient require the assistance of a helper? Yes. TRANSFERS: BED, CHAIR, WHEELCHAIR - STEP 3: How much assistance does the patient require from the helper? Only supervision TRANSFERS: BED, CHAIR, WHEELCHAIR - SCORE: 5-SUP TRANSFERS: TOILET: TRANSFERS: TOILET - STEP 1: Does the patient require the assistance of a person or device, or need extra time with toilet transfe rs? Yes. TRANSFERS: TOILET - STEP 2: Does the patient require the assistance of a helper? Yes. TRANSFERS: TOILET - STEP 3: How much assistance does the patient require from the helper? Only supervision, cuing, coaxing, OR he lp to set out transfer equipment or to lock brakes and/or lift foot rests TRANSFERS: TOILET - SCORE: 5-SUP TRANSFERS: SHOWER: Activity did not occur on this shift TRANSFERS: SHOWER - SCORE: 0-UNK TRANSFERS: TUB: Activity did not occur on this shift TRANSFERS: TUB - SCORE: 0-UNK LOCOMOTION: WALK: Activity did not occur on this shift LOCOMOTION: WALK - SCORE: 0-UNK LOCOMOTION: WHEELCHAIR: Activity did not occur on this shift LOCOMOTION: WHEELCHAIR - SCORE: 0-UNK COMPREHENSION: COMPREHENSION: TYPE: Both COMPREHENSION - STEP 1: Does the patient require help from a person or device, or need extra time to understand complex and a bstract ideas (such as current events, finances, discharge planning, medical issues, relationships, e tc)? No. COMPREHENSION - STEP 2: Does the patient need extra time, require an assistive device (such as glasses for visual comprehensi on or a hearing aid for auditory comprehension) or does s/he have mild difficulty understanding compl ex and abstract information? Yes. COMPREHENSION - SCORE: 6-ALEXANDER EXPRESSION EXPRESSION: TYPE: Both EXPRESSION - STEP 1: Does the patient require help from a person or device, or need extra time expressing complex and abst ract ideas (such as current events, finances, discharge planning, medical issues, relationships, etc) ? No. EXPRESSION - STEP 2: Does the patient need extra time, require an assistive device (such as augmentive communication syste m or a communication board), OR does s/he have mild difficulty expressing complex and abstract ideas (including mild dysarthria or mild word-find problems)? Yes. EXPRESSION - SCORE: 6-ALEXANDER SOCIAL INTERACTION: SOCIAL INTERACTION - STEP 1: Does the patient require a helper to interact with others in social and therapeutic situations? No. SOCIAL INTERACTION - STEP 2: Does the patient need extra time in social situations, OR does s/he interact with staff, other patien ts, and family members ONLY in structured environments, OR does s/he require medication for social in teraction? Yes, patient needs extra time SOCIAL INTERACTION - SCORE: 6-ALEXANDER PROBLEM SOLVING: PROBLEM SOLVING - STEP 1: Does the patient need help from a person or device, or need extra time to solve complex problems such as managing a checking account or confronting interpersonal problems? No. PROBLEM SOLVING - STEP 2: Does the patient require extra time to make decisions or solve problems, OR does s/he have slight dif ficulty reading, initiating, or self-correcting in unfamiliar situations? Yes, patient needs extra ti me. PROBLEM SOLVING - SCORE: 6-ALEXANDER MEMORY: MEMORY - STEP 1: Does the patient need help from a person or device, or need extra time to remember frequently encount ered people, daily routines, and executing requests? No. MEMORY - STEP 2: Does the patient have slight difficulty recognizing frequently encountered people, daily routines, or executing requests without the need for repetition or using self-initiated or environmental cues to remember? Yes. MEMORY - SCORE: 6-ALEXANDER SIGNATURE PANEL: The following modified sections: Eating - Score, Grooming - Score, Bathing - Score, Dressing - Upper Body - Score, Dressing - Lower Body - Score, Toileting - Score, Bladder Management - Score, Bowel Man agement - Score, Transfers: Bed, Chair, Wheelchair - Score, Transfers: Toilet - Score, Transfers: Nimo wer - Score, Transfers: Tub - Score, Locomotion: Walk - Score, Locomotion: Wheelchair - Score, Compre hension - Score, Expression - Score, Social Interaction - Score, Problem Solving - Score, Memory - Sc ore were [electronically] signed by Lamonte Pratt on TueOct 03 2018 13:22:12 GMT-0500 ([facility] Day[employer] [facility])
--- NOTE | 2018-10-03 15:28 | FAST ---
ENCOUNTER DATE AND TIME: 10/03/2018 08:00 (CDT) NAME SUSANA YAO DATE OF : 1930 DATE OF ADMISSION: 09/20/2018 15:58 (CDT) PHONE: AGE: 88 SSN# [id number] GENDER: Female ENCOUNTER PHYSICIAN: Dr. Martin Carranza M.D. 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 EATING: Activity did not occur on this shift EATING - SCORE: 0-UNK GROOMING: Activity did not occur on this shift GROOMING - SCORE: 0-UNK BATHING: Activity did not occur on this shift BATHING - SCORE: 0-UNK DRESSING - UPPER BODY: Activity did not occur on this shift Patient is not dressing in public clothing ARTICLES SCORE Total number of steps: 0 DRESSING - UPPER BODY - SCORE: 0-UNK DRESSING - LOWER BODY: Activity did not occur on this shift Patient is not dressing in public clothing ARTICLES SCORE Total number of steps: 0 DRESSING - LOWER BODY - SCORE: 0-UNK TOILETING: Activity did not occur on this shift TOILETING - SCORE: 0-UNK BLADDER MANAGEMENT: Activity did not occur on this shift BLADDER MANAGEMENT - SCORE: 7-IND BOWEL MANAGEMENT: Activity did not occur on this shift BOWEL MANAGEMENT - SCORE: 7-IND TRANSFERS: BED, CHAIR, WHEELCHAIR: Activity did not occur on this shift TRANSFERS: BED, CHAIR, WHEELCHAIR - SCORE: 0-UNK TRANSFERS: TOILET: Activity did not occur on this shift TRANSFERS: TOILET - SCORE: 0-UNK TRANSFERS: SHOWER: Activity did not occur on this shift TRANSFERS: SHOWER - SCORE: 0-UNK TRANSFERS: TUB: Activity did not occur on this shift TRANSFERS: TUB - SCORE: 0-UNK LOCOMOTION: WALK: Activity did not occur on this shift LOCOMOTION: WALK - SCORE: 0-UNK LOCOMOTION: WHEELCHAIR: Activity did not occur on this shift LOCOMOTION: WHEELCHAIR - SCORE: 0-UNK LOCOMOTION: STAIRS: Activity did not occur on this shift LOCOMOTION: STAIRS - SCORE: 0-UNK COMPREHENSION: COMPREHENSION - SCORE: 0-UNK EXPRESSION EXPRESSION - SCORE: 0-UNK SOCIAL INTERACTION: SOCIAL INTERACTION - SCORE: 0-UNK PROBLEM SOLVING: PROBLEM SOLVING - SCORE: 0-UNK MEMORY: MEMORY - SCORE: 0-UNK SIGNATURE PANEL: The following modified sections: Transfers: Bed, Chair, Wheelchair - Score, Transfers: Toilet - Score , Locomotion: Walk - Score, Locomotion: Wheelchair - Score, Locomotion: Stairs - Score were [electron ically] signed by Jozef Melendrez PTA on TueOct 03 2018 15:28:13 GMT-0500 ([place] Daylight Time)
--- NOTE | 2018-10-03 15:30 | FAST ---
ENCOUNTER DATE AND TIME: 09/29/2018 08:00 (CDT) NAME SUSANA YAO DATE OF : 1930 DATE OF ADMISSION: 09/20/2018 15:58 (CDT) PHONE: AGE: 88 N# [id number] GENDER: Female ENCOUNTER PHYSICIAN: Dr. Martin Carranza M.D. 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 EATING: Activity did not occur on this shift EATING - SCORE: 0-UNK GROOMING: Activity did not occur on this shift GROOMING - SCORE: 0-UNK BATHING: Activity did not occur on this shift BATHING - SCORE: 0-UNK DRESSING - UPPER BODY: Activity did not occur on this shift Patient is not dressing in public clothing ARTICLES SCORE Total number of steps: 0 DRESSING - UPPER BODY - SCORE: 0-UNK DRESSING - LOWER BODY: Activity did not occur on this shift Patient is not dressing in public clothing ARTICLES SCORE Total number of steps: 0 DRESSING - LOWER BODY - SCORE: 0-UNK TOILETING: Activity did not occur on this shift TOILETING - SCORE: 0-UNK BLADDER MANAGEMENT: Activity did not occur on this shift BLADDER MANAGEMENT - SCORE: 7-IND BOWEL MANAGEMENT: Activity did not occur on this shift BOWEL MANAGEMENT - SCORE: 7-IND TRANSFERS: BED, CHAIR, WHEELCHAIR: TRANSFERS: BED, CHAIR, WHEELCHAIR - STEP 1: Does the patient require assistance of a person or device, or need extra time with bed, chair, or whe elchair transfers? Yes. TRANSFERS: BED, CHAIR, WHEELCHAIR - STEP 2: Does the patient require the assistance of a helper? No. Patient only requires an assistive device fo r bed, chair, wheelchair transfers such as a sliding board, grab bar, or brace, OR s/he takes more th an reasonable time, OR there is a safety concern when s/he performs the transfers TRANSFERS: BED, CHAIR, WHEELCHAIR - SCORE: 6-ALEXANDER TRANSFERS: TOILET: Activity did not occur on this shift TRANSFERS: TOILET - SCORE: 0-UNK TRANSFERS: SHOWER: Activity did not occur on this shift TRANSFERS: SHOWER - SCORE: 0-UNK TRANSFERS: TUB: Activity did not occur on this shift TRANSFERS: TUB - SCORE: 0-UNK LOCOMOTION: WALK: LOCOMOTION: WALK - STEP 1: Does the patient need help from a person or device, or need extra time to walk 150 feet? Yes. LOCOMOTION: WALK - STEP 2: How much assistance does the patient require to walk a minimum of 150 feet? Only supervision, cuing, or coaxing LOCOMOTION: WALK - SCORE: 5-SUP LOCOMOTION: WHEELCHAIR: Activity did not occur on this shift LOCOMOTION: WHEELCHAIR - SCORE: 0-UNK LOCOMOTION: STAIRS: LOCOMOTION: STAIRS - STEP 1: Does the patient need help to go up and down 12 to 14 stairs? Yes. LOCOMOTION: STAIRS - STEP 2: How much assistance does the patient need from the helper to go a minimum of 12 to 14 stairs? Only in cidental help such as contact guarding or steadying LOCOMOTION: STAIRS - SCORE: 4-MIN COMPREHENSION: COMPREHENSION - SCORE: 0-UNK EXPRESSION EXPRESSION - SCORE: 0-UNK SOCIAL INTERACTION: SOCIAL INTERACTION - SCORE: 0-UNK PROBLEM SOLVING: PROBLEM SOLVING - SCORE: 0-UNK MEMORY: MEMORY - SCORE: 0-UNK SIGNATURE PANEL: The following modified sections: Transfers: Bed, Chair, Wheelchair - Score, Transfers: Toilet - Score , Locomotion: Walk - Score, Locomotion: Wheelchair - Score, Locomotion: Stairs - Score were [electron shawn] signed by Jozef Melendrez PTA on TueOct 03 2018 15:29:41 GMT-0500 (Central Daylight Time)
--- NOTE | 2018-10-03 15:32 | FAST ---
ENCOUNTER DATE AND TIME: 09/28/2018 08:00 (CDT) NAME SUSANA YAO DATE OF : 1930 DATE OF ADMISSION: 09/20/2018 15:58 (CDT) PHONE: AGE: 88 N# [id number] GENDER: Female ENCOUNTER PHYSICIAN: Dr. Martin Carranza M.D. 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 EATING: Activity did not occur on this shift EATING - SCORE: 0-UNK GROOMING: Activity did not occur on this shift GROOMING - SCORE: 0-UNK BATHING: Activity did not occur on this shift BATHING - SCORE: 0-UNK DRESSING - UPPER BODY: Activity did not occur on this shift Patient is not dressing in public clothing ARTICLES SCORE Total number of steps: 0 DRESSING - UPPER BODY - SCORE: 0-UNK DRESSING - LOWER BODY: Activity did not occur on this shift Patient is not dressing in public clothing ARTICLES SCORE Total number of steps: 0 DRESSING - LOWER BODY - SCORE: 0-UNK TOILETING: Activity did not occur on this shift TOILETING - SCORE: 0-UNK BLADDER MANAGEMENT: Activity did not occur on this shift BLADDER MANAGEMENT - SCORE: 7-IND BOWEL MANAGEMENT: Activity did not occur on this shift BOWEL MANAGEMENT - SCORE: 7-IND TRANSFERS: BED, CHAIR, WHEELCHAIR: TRANSFERS: BED, CHAIR, WHEELCHAIR - STEP 1: Does the patient require assistance of a person or device, or need extra time with bed, chair, or whe elchair transfers? Yes. TRANSFERS: BED, CHAIR, WHEELCHAIR - STEP 2: Does the patient require the assistance of a helper? Yes. TRANSFERS: BED, CHAIR, WHEELCHAIR - STEP 3: How much assistance does the patient require from the helper? Only supervision TRANSFERS: BED, CHAIR, WHEELCHAIR - SCORE: 5-SUP TRANSFERS: TOILET: Activity did not occur on this shift TRANSFERS: TOILET - SCORE: 0-UNK TRANSFERS: SHOWER: Activity did not occur on this shift TRANSFERS: SHOWER - SCORE: 0-UNK TRANSFERS: TUB: Activity did not occur on this shift TRANSFERS: TUB - SCORE: 0-UNK LOCOMOTION: WALK: LOCOMOTION: WALK - STEP 1: Does the patient need help from a person or device, or need extra time to walk 150 feet? Yes. LOCOMOTION: WALK - STEP 2: How much assistance does the patient require to walk a minimum of 150 feet? Patient walks less than 1 50 feet - but more than 50 feet - with the assistance of only one helper LOCOMOTION: WALK - SCORE: 2-MAX LOCOMOTION: WHEELCHAIR: Activity did not occur on this shift LOCOMOTION: WHEELCHAIR - SCORE: 0-UNK LOCOMOTION: STAIRS: LOCOMOTION: STAIRS - STEP 1: Does the patient need help to go up and down 12 to 14 stairs? Yes. LOCOMOTION: STAIRS - STEP 2: How much assistance does the patient need from the helper to go a minimum of 12 to 14 stairs? The pat ient goes less than 12 stairs, but at least 4 stairs LOCOMOTION: STAIRS - SCORE: 2-MAX COMPREHENSION: COMPREHENSION - SCORE: 0-UNK EXPRESSION EXPRESSION - SCORE: 0-UNK SOCIAL INTERACTION: SOCIAL INTERACTION - SCORE: 0-UNK PROBLEM SOLVING: PROBLEM SOLVING - SCORE: 0-UNK MEMORY: MEMORY - SCORE: 0-UNK SIGNATURE PANEL: The following modified sections: Transfers: Bed, Chair, Wheelchair - Score, Transfers: Toilet - Score , Locomotion: Walk - Score, Locomotion: Wheelchair - Score, Locomotion: Stairs - Score were [electron shawn] signed by Jozef Melendrez PTA on TueOct 03 2018 15:31:05 GMT-0500 (Central Daylight Time)
--- NOTE | 2018-10-20 17:07 | R.PN ---
ENCOUNTER DATE AND TIME: 09/25/2018 17:04 (CDT) NAME SUSANA YAO DATE OF : 1930 DATE OF ADMISSION: 09/20/2018 15:58 (CDT) Abdominal aortic aneurysm (I71.4)CHIEF COMPLAINT: Debility and abdominal aortic aneurysm. SUBJECTIVE: Pt denied any depression. Pt denied any Shortness of Breath. Ambulated 410' with modified independence using a rollator. She is making good overall progress with physical and occupational therapy. VITAL SIGNS Temperature: 97.6 F SBP/DBP: 131/63 Pulse: 77 Resp: 14 MEDICATION ALLERGIES: No Known Drug Allergies (NKDA) ENVIRONMENTAL ALLERGIES: - Substance Allergies None Known - Other Allergies None Known NURSING: - Shower allowing shower - Lab Results blood Sugar Check ACHS - Bladder care per protocol - Skin care per protocol ACTIVITIES OOB only with supervision THERAPIES: - Orthotics/Prosthetics Orthotic Evaluation. Splinting/Casting. - Dietary and Nutrition Adequate Nutrition. Nutritional Education. Nutritional Supplements. PHYSICAL EXAM - Gen Alert and awake Lying in bed No apparent distress Oriented to: person, time, and place - Skin No skin breakdown. No abnormalities - Eyes No abnormalities - ENMT No abnormalities - Neck No abnormalities - CVS RRR - Chest No abnormalities - Abd Soft - GI nondistended Deferred - No abnormalities - Ext No significant edema - MSK 4/5 weakness in both lower extremities. - Neuro No focal deficits - Psych No abnormalities ASSESSMENT: Pt. 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 was independent/mod-I in Self-Care , Sphincter Control, Transfers Control, Locomotion, Communication, and Social Cognition; and she had good Sphincter Control.Currently, she has deficits of Transfers Control, Locomotion, Communication, S ocial Cognition, Endurance, Balance, Safety Awareness, and Self-Care.Pt. is now referred to [facility] for acute in-patient rehabilitation in order to maximize patient's functiona l independence in activities of daily living, strength, ROM, and mobility.- Rehab Goal Patient has realistic goal of being discharged at assistance level 6-Shara to reside at Home with Fam pamela/Relatives. MDM/PLAN: - Physical Therapy Gait dysfunction - to improve, our physical therapists will perform initial evaluation of pt's statu s upon admission and devise an individualized program for Gait Training, and Wheel Chair mobility Inability to transfer - to improve, our physical therapists will perform initial evaluation of pt's status upon admission and devise an individualized program for Bed mobility Need for home safety evaluation - to improve, our physical therapists will perform initial evaluatio n of pt's status upon admission and devise an individualized program for Home Evaluation Need in caregiver upon discharge - to improve, our physical therapists will perform initial evaluati on of pt's status upon admission and devise an individualized program for Caregiver Training New precaution - to improve, our physical therapists will perform initial evaluation of pt's status upon admission and devise an individualized program for Patient precaution education Poor balance - to improve, our physical therapists will perform initial evaluation of pt's status up on admission and devise an individualized program for Balance Training Poor endurance - to improve, our physical therapists will perform initial evaluation of pt's status upon admission and devise an individualized program for Endurance Training Weakness - to improve, our physical therapists will perform initial evaluation of pt's status upon a dmission and devise an individualized program for Aquatic Therapy, Neuromuscular Reeducation, and Str engthening Achieving independence - to improve, our physical therapists will perform initial evaluation of pt's status upon admission and devise an individualized program for Community Reintegration Activities - Occupational Therapy ADL deficits - to improve, our occupation therapists will perform initial evaluation of pt's status upon admission and devise an individualized program for Bathing, Bed mobility, Community Reintegratio n, Cooking, Dressing, Eating, Fine Motor Skills, Grooming, Homemaking, Kitchen Mobility, Laundry, Pat ient Education, Safety Awareness, Splinting - Positioning, Transfers(Toilet, Tub, Shower), and Wheel Chair Management Cognitive deficits - to improve, our occupation therapists will perform initial evaluation of pt's s tatus upon admission and devise an individualized program for Cognition - orientation Need for occasional caregiver - to improve, our occupation therapists will perform initial evaluation of pt's status upon admission and devise an individualized program for Caregiver Training Weakness - to improve, our occupation therapists will perform initial evaluation of pt's status upon admission and devise an individualized program for Aquatic Therapy, Balance, Endurance, UE ROM, and UE strengthening - Other See attached MAR (Medication Administration Record) - Diet Type Continue Regular - Diet - Liquid Texture Continue Regular - Tube Feed Continue N/A - Lab Results blood Sugar Check ACHS - Bladder care per protocol - Skin care per protocol - Diet - Solid Texture Continue Regular - Shower allowing shower FUNCTIONAL STATUS: UPDATED AT WEEKLY TEAM CONFERENCE - Bladder Same accident frequency: 7-Ind - No accidents in the past 7 days - Bowel Same accident frequency: 7-Ind - No accidents in the past 7 days - Walking Same score based on distance walked: 0(N/A) - Wheelchair Same score based on distance traveled: 0(N/A) FUNCTIONAL STATUS: - Self-Care A. Eating Ind B. Grooming sup C. Bathing sup D. Dressing - Upper sup E. Dressing - Lower Dep F. Toileting modA - Sphincter Control G: Bladder control Ind H: Bowel control Ind - Transfers Control I. Bed/Chair/Wheelchair Aide J. Toilet Aide K. Tub/Shower Aide - Locomotion L. Walk/Wheelchair (B) Dep M. Stairs ADNO - Communication N. Comprehension (B) sup O. Expression (B) sup - Social Cognition P. Social Interaction sup Q. Problem Solving sup R. Memory sup - Endurance Poor - Balance Poor - Safety Awareness Poor CURRENT FUNC. DEFICITS: Transfers Control, Locomotion, Communication, Social Cognition, Endurance, Balance, Safety Awareness, and Self-Care SIGNATURE PANEL: (CDT)
--- NOTE | 2018-10-20 17:42 | R.DS ---
[facility]ACILITY [id number] NAME JEANNIE WHITLOCK ADDRESS [address] [place] [address] [address] [id number] PHONE DATE OF 1930 AGE 88 SSN# [id number] GENDER Female DEXTERITY Right-handed MARITAL STATUS RACE White ENCOUNTER PHYSICIAN Dr. Martin Carranza M.D. 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 DISCHARGE COMORBIDITIES: - N/A hypertension severe COPD Obstructive sleep apnea UTI diabetes CHF AFib CAD DATE OF ADMISSION 09/20/2018 15:58 (CDT) MEDICATION ALLERGIES: No Known Drug Allergies (NKDA) ENVIRONMENTAL ALLERGIES: - Substance Allergies None Known - Other Allergies None Known DISCHARGE MEDICATIONS: Other- ContinueSee attached MAR (Medication Administration Record). NURSING: - Shower allowing shower - Lab Results blood Sugar Check ACHS - Bladder care per protocol - Skin care per protocol ACTIVITIES OOB only with supervision THERAPIES: - Orthotics/Prosthetics Orthotic Evaluation Splinting/Casting - Dietary and Nutrition Adequate Nutrition Nutritional Education Nutritional Supplements HISTORY OF PRESENT ILLNESS: Pt. 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 was independent/mod-I in Self-Care and Sphincter Control; and she had good Sphincter Control.Currently, she has deficits of Transfers C ontrol, Locomotion, Communication, Social Cognition, Endurance, Balance, Safety Awareness, and Self-C are.Pt. is now referred to [facility] for acute in-patient rehabilitation in o rder to maximize patient's functional independence in activities of daily living, strength, ROM, and mobility.- Rehab Goal Patient has realistic goal of being discharged at assistance level 6-Shara to reside at Home with Fam pamela/Relatives. Jeannie Whitlock is an 88 old female that lives in a single madhuri house with her . She has provider to assist with bath, heel sprayer to clean house and family gets groceries and take to appointments. On 09/09/2018, she had a abdominal pain, nausea and vomiting and CT done showing enlarged abdominal aneurysm and w3as admitted at [facility]. She is now medically sta ble but in need of 24-hour nursing, doctor supervision and oversite while receiving participate in 3hours of therapy a day/15 hours per week and receive care with an intensive interdisciplinary approach.HOSPITAL COURSE: DIET - LIQUID TEXTURE: On 09/20/2018 Pt was upgraded to Regular Diet - Liquid Texture. DIET - SOLID TEXTURE: On 09/20/2018 Pt was upgraded to Regular Diet - Solid Texture. DIET TYPE: On 09/20/2018 Pt was upgraded to Regular Diet Type. TUBE FEED: On 09/20/2018 Pt was changed to N/A Tube Feed. DISCHARGE PHYSICAL EXAM - Gen Alert and awake Lying in bed No apparent distress Oriented to: person, time, and place - Skin No skin breakdown. No abnormalities - Eyes No abnormalities - ENMT No abnormalities - Neck No abnormalities - CVS RRR - Chest No abnormalities - Abd Soft - GI nondistended Deferred - No abnormalities - Ext No significant edema - MSK 4/5 weakness in both lower extremities. - Neuro No focal deficits - Psych No abnormalities FUNCTIONAL STATUS: - Self-Care A. Eating 7-Ind B. Grooming 7-Ind C. Bathing 5-sup D. Dressing - Upper 5-sup E. Dressing - Lower 1-Dep F. Toileting 6-Shara - Sphincter Control G: Bladder control 7-Ind H: Bowel control 7-Ind - Transfers Control I. Bed/Chair/Wheelchair 6-Shara J. Toilet 6-Shara K. Tub/Shower 6-Shara - Locomotion L. Walk/Wheelchair (B) 6-Shara M. Stairs 5-sup - Communication N. Comprehension (B) 5-sup O. Expression (B) 5-sup - Social Cognition P. Social Interaction 5-sup Q. Problem Solving 5-sup R. Memory 5-sup - Endurance Poor - Balance Poor - Safety Awareness Poor DISCHARGE INSTRUCTIONS: - N/A Eliquis 2.5 mg twice daily. DISCHARGE PLAN, FOLLOW UP CARE PROVISIONS: - Estimated Length of Stay (days) 16. - Consensus on plan Discharge plan has been discussed with primary caregiver. Patient/Family is in agreement with the doris n. Primary caregiver is in agreement with the plan. - Patient/Family Goals Return home with assistance. - Planned Living Setting Upon Discharge Home, to live with Family/Relatives. SIGNATURE PANEL: (CDT)
== END 2018-10-03 14:54 | disposition home health service (06) | DRG 93 ==
LOC: 5TH 15:58
PROVIDERS: ADMIT Psychiatry & Neurology Neurology with Special Qualifications in Child Neurology; ATTEND Psychiatry & Neurology Neurology with Special Qualifications in Child Neurology
DX: G95.89 Other specified diseases of spinal cord (principal); I71.4 Abdominal aortic aneurysm, without rupture; I48.91 Unspecified atrial fibrillation; I25.10 Atherosclerotic heart disease of native coronary artery without angina pectoris; I11.0 Hypertensive heart disease with heart failure; G47.33 Obstructive sleep apnea (adult) (pediatric); E11.9 Type 2 diabetes mellitus without complications; J44.9 Chronic obstructive pulmonary disease, unspecified
CPT/HCPCS: 36415; 80048; 80053; 81001; 82040; 82607; 82728; 82746; 82805; 82962; 83540; 83615; 83735; 84100; 84134; 84466; 85025; 85044; 85610; 85730; 86850; 86900; 86901; 87086; 87088; 97110; 97116; 97124; 97163; 97530; 99251; J1644; J7512; J7605

== ENCOUNTER 2018-12-08 12:15 | Inpatient (IN) | payer OTHER, MEDICARE ==
[2018-12-08] MEDS ORDERED: DOXYCYCLINE 100 MG in NA CHLORIDE 0.9% 100 ML IVPB SCH ×2 (13:30→20:00)
[2018-12-08] MEDS ORDERED: GLUCAGON 1 MG/VIAL IM PRN (14:53)
[2018-12-08] MEDS ORDERED: D50W 25 GM/50 ML SYRINGE IV PRN (14:53)
[2018-12-08] MEDS ORDERED: ALBUTEROL 2.5 MG/3 ML NEB SOL NEB PRN (14:54)
--- NOTE | 2018-12-08 15:02 | P.HP ---
Certification for Inpatient Patient admitted to: Inpatient With expected LOS: >2 Midnights Patient will require the following post-hospital care: None Practitioner: I am a practitioner with admitting privileges, knowledge of patient current condition, hospital course, and medical plan of care. Services: Services provided to patient in accordance with Admission requirements found in Title 42 Section 412.3 of the Code of Federal Regulations Patient History Date of Service: 12/08/18 Primary Care Provider: Vinay Romano Reason for admission: Multi drug resistant UTI History of Present Illness: Patient is an office patient of Annia Romano. She has been having recurrent UTI' s since a hospitalization in [facility] this past July. She has been treated as an out patient on multiple rounds of antibiotics for the past few months. She has an appointment with [facility]. Her last urine showed a multi drug resistant UTI. The patient has multiple drug allergies. So choosing the appropriate antibiotic was difficulty. We had choosen amikacin IM as an outpatient. However the pharmacies in the area would not be able to provide it till next week. Mrs Romano called the patient and found that her symptoms of dysuria were worsening. Fearing that the patient would worsen without treatment we decided to admit her. Allergies codeine [Codeine] Allergy (Mild, Verified 09/20/18 16:20) Itching Penicillins Allergy (Mild, Verified 09/20/18 16:20) Nausea/Vomiting ciprofloxacin [From Cipro] Allergy (Verified 09/20/18 16:20) Shortness of breath iodine Allergy (Verified 09/20/18 16:20) Unknown meperidine [From Demerol] Allergy (Verified 09/20/18 16:20) Unknown metformin Allergy (Verified 09/20/18 16:20) Nausea/Vomiting morphine Allergy (Verified 09/20/18 16:20) Unknown Vaiytrz-Ffi-Aeo Reductase Inhibitor Allergy (Verified 09/20/18 16:20) Nausea/Vomiting CT Dye Allergy (Uncoded 09/20/18 16:20) Unknown Tape Allergy (Uncoded 09/20/18 16:20) Itching Home Medications: Amiodarone HCl 100 mg PO DAILY 06/27/18 Arformoterol Tartrate [Brovana] 15 mcg IH BID 06/27/18 Furosemide [Lasix*] 20 mg PO BID 06/27/18 Lisinopril [Prinivil*] 10 mg PO DAILY 06/27/18 Metoprolol Tartrate [Lopressor*] 50 mg PO BID 06/27/18 Tiotropium [Spiriva Handihaler*] 1 dose IH DAILY 06/27/18 Acetaminophen [Tylenol] 650 mg PO Q6H PRN 09/20/18 Acidophilus/Bulgaricus [Lactinex Tablet Chewable] 1 tab PO Q12H 09/20/18 Albuterol Sulfate [Proair Hfa] 1 - 2 puff IH Q4H PRN 09/20/18 Aspirin [Aspirin EC 81 MG] 1 tab PO DAILY 09/20/18 Bisacodyl [Dulcolax*] 1 supp DC DAILY PRN 09/20/18 Carboxymethylcellulose Sodium [Lubricant Eye Drop] 1 drop OPTH BID PRN 09/20/18 Cholecalciferol (Vitamin D3) [Vitamin D 400 IU TAB*] 1 tab PO DAILY 09/20/18 Diphenhydramine [Benadryl*] 1 cap PO BEDTIME PRN 09/20/18 Docusate [Colace Cap*] 1 cap PO BID PRN 09/20/18 Isosorbide Mononitrate [Isosorbide Mononitrate ER] 1 tab PO DAILY AFTER SUPPER 09/20/18 Melatonin [Melatonin*] 6 mg PO BEDTIME PRN 09/20/18 Senosides [Senokot*] 1 tab PO BID PRN 09/20/18 FA/Vit C/E/Zinc/Copper/Lut/Ivory [Ocuvel Capsule] 1 each PO DAILY #30 capsule Insulis Lispro MIX 75/25 [Humalog Mix 75/25] 14 unit SQ DAILY AT SUPPER #30 vial 10/03/18 Insulis Lispro MIX 75/25 [Humalog Mix 75/25] 36 unit SQ DAILY WITH BREAKFAST # 30 vial 10/03/18 Krill/Om-3/Dha/Epa/Phospho/Ast [Krill Oil 1,000 mg Softgel] 1 each PO DAILY #30 capsule 10/03/18 Ubidecarenone/Vit E Acetate [Co Q-10 100 mg Softgel] 1 each PO DAILY #30 capsule 10/03/18 predniSONE [Deltasone] 5 mg PO DAILY #30 tab 10/03/18 - Past Medical/Surgical History Diabetic: Yes -: DM -: COPD -: LUNG CA -: CHF -: htn -: hyperlipidemia -: uti -: cad -: AAA -: cardiomyopathy -: Cataract sx R eye -: 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 moist/pink, EOMI, Sclerae nonicteric Neck: Supple, 2+ carotid pulse no bruit, No LAD, Without JVD or thyroid abnormality Respiratory: Clear to auscultation bilaterally, Normal air movement Cardiovascular: Regular rate/rhythm, Normal S1 S2 Gastrointestinal: Normal bowel sounds, No tenderness Musculoskeletal: No tenderness Integumentary: No rashes Neurological: Normal gait, Normal speech, Normal strength at 5/5 x4 extr, Normal tone, Normal affect Lymphatics: No axilla or inguinal lymphadenopathy Assessment and Plan - Problems (Diagnosis) (1) UTI (urinary tract infection) Current Visit: Yes Status: Chronic Plan: Patient is here for chronic recurrent UTI. She has failed out patient antibiotics. Will start her on iv fluids and doxycycline. She has a Ecoli. Have brought the antibiotigram. Qualifiers: Urinary tract infection type: site unspecified Hematuria presence: without hematuria Qualified Code(s): N39.0 - Urinary tract infection, site not specified (2) COPD (chronic obstructive pulmonary disease) Onset Date: 08/12/15 Current Visit: No Status: Chronic Plan: currently stable. Will start her on her home medicaitons. Qualifiers: COPD type: COPD with acute exacerbation Qualified Code(s): J44.1 - Chronic obstructive pulmonary disease with (acute) exacerbation (3) Chronic renal disease, stage 2, mildly decreased glomerular filtration rate (GFR) between 60-89 mL/min/1.73 square meter Onset Date: 12/18/15 Current Visit: No Status: Chronic Plan: Will continue the fluids and monitor her creatine (4) Diabetes mellitus Onset Date: 04/13/18 Current Visit: No Status: Chronic Plan: Maddie is on humalog. Will start her on her home medications. Continue her prednisone. Will place a mild sliding scale on the patient,. 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
[2018-12-08 15:30] VITALS: BMI 24.3
[2018-12-08] MEDS: NA CHLORIDE 0.9% 1,000 ML IV SCH (15:56)
[2018-12-08] MEDS: INSULIN -REGULAR HUMAN 50 UNIT/0.5 ML ML SQ SCH ×2 (16:30→20:53)
[2018-12-08] MEDS: HUMALOG MIX 75/25 100 UNITS/ML SQ SCH (17:00)
[2018-12-08] MEDS: FUROSEMIDE 20 MG TABLET PO SCH (17:00)
[2018-12-08] MEDS ORDERED: INFLUENZA VACCINE (for 3y+) 0.5 ML DOSE IMVAC ONE (17:00)
[2018-12-08] MEDS: ENOXAPARIN 30 MG/0.3 ML SQ SCH (18:15)
[2018-12-08] MEDS: ARFORMOTEROL TARTRATE 15 MCG/2 ML VIAL.NEB NEB SCH (20:05)
[2018-12-08] MEDS: METOPROLOL TAR 50 MG TAB PO SCH (20:56)
[2018-12-08] MEDS ORDERED: LISINOPRIL 10 MG TAB PO SCH (21:00)
[2018-12-08 23:21] LABS: Urine Appearance CLEAR; Urine Bilirubin NEGATIVE (NEG); Urine Blood NEGATIVE (NEG); Urine Color YELLOW; Urine Glucose NEGATIVE (NEG); Urine Protein NEGATIVE (NEG); Urine Specific Gravity <=1.005 (1.005-1.030); Urine Urobilinogen 0.2 mg/dL (0.2-1.0)
[2018-12-08 23:49] LABS: Urine Bacteria <20 /HPF (<20); Urine RBC NONE SEEN /HPF (NONE SEEN)
[2018-12-08 23:50] LABS: Urine Culture Reflex Order REFLEXED
[2018-12-09] MEDS: NA CHLORIDE 0.9% 1,000 ML IV SCH ×3 (03:11→21:35)
[2018-12-09] MEDS: DOXYCYCLINE 100 MG in NA CHLORIDE 0.9% 100 ML IVPB SCH ×2 (03:17→16:17)
[2018-12-09 06:36] LABS: Absolute Lymphocytes (CBC) 1.6 K/uL (0.7-4.9); Basophils % 0.9 % (0-1.3); Hematocrit 30.2 % (36.0-45.0); Lymphocytes % 26.6 % (15.3-44.8); MPV 7.1 fL (7.6-11.3); RBC Red Blood Cell Count 3.32 M/uL (3.86-4.86)
[2018-12-09 07:07] LABS: Albumin 2.8 g/dL (3.4-5.0); Bilirubin Total 0.3 mg/dL (0.2-1.0); Potassium 4.2 mmol/L (3.5-5.1); Protein, Total 5.8 g/dL (6.4-8.2)
[2018-12-09 07:16] LABS: Thyroid Stimulating Hormone 4.55 uIU/mL (0.360-3.740)
[2018-12-09] MEDS: INSULIN -REGULAR HUMAN 50 UNIT/0.5 ML ML SQ SCH ×4 (07:30→21:00)
[2018-12-09] MEDS: ARFORMOTEROL TARTRATE 15 MCG/2 ML VIAL.NEB NEB SCH ×2 (08:53→19:45)
[2018-12-09] MEDS ORDERED: LISINOPRIL 10 MG TAB PO SCH (09:00)
[2018-12-09] MEDS: predniSONE 5 MG TAB PO SCH (09:19)
[2018-12-09] MEDS: ASPIRIN 81 MG CHEWABLE TABLET PO SCH (09:19)
[2018-12-09] MEDS: FUROSEMIDE 20 MG TABLET PO SCH ×2 (09:19→17:43)
[2018-12-09] MEDS: AMIODARONE HCL 200 MG TAB PO SCH (09:20)
[2018-12-09] MEDS: METOPROLOL TAR 50 MG TAB PO SCH (09:21)
--- NOTE | 2018-12-09 11:47 | P.PN ---
Subjective Date of Service: 12/09/18 Primary Care Provider: Vinay Romano Chief Complaint: Multi drug resistant UTI Subjective: No new changes Review of Systems 10-point ROS is otherwise unremarkable Physical Examination - Vital Signs Temperature: 97.3 F Blood Pressure: 140/65 Pulse: 73 Respirations: 18 Pulse Ox (%): 97 - Physical Exam General: Alert, In no apparent distress HEENT: Atraumatic, PERRLA, EOMI Neck: Supple, JVD not distended Respiratory: Clear to auscultation bilaterally, Normal air movement Cardiovascular: Regular rate/rhythm, Normal S1 S2 Gastrointestinal: Normal bowel sounds, No tenderness Musculoskeletal: No tenderness Integumentary: No rashes Neurological: Normal speech, Normal tone, Normal affect Lymphatics: No axilla or inguinal lymphadenopathy - Studies Laboratory Data (last 24 hrs) 12/09/18 06:23: Sodium 144, Potassium 4.2, BUN 16, Creatinine 1.00, Glucose 105 , Total Bilirubin 0.3, AST 13 L, ALT 13, Alkaline Phosphatase 57 12/09/18 06:23: WBC 6.2, Hgb 10.2 L, Hct 30.2 L, Plt Count 155 Assessment & Plan - Problems (Diagnosis) (1) UTI (urinary tract infection) Current Visit: Yes Status: Chronic Plan: Patient is here for chronic recurrent UTI. She has failed out patient antibiotics. Will start her on iv fluids and doxycycline. She has a Ecoli. Have brought the antibiotigram. Qualifiers: Urinary tract infection type: site unspecified Hematuria presence: without hematuria Qualified Code(s): N39.0 - Urinary tract infection, site not specified (2) COPD (chronic obstructive pulmonary disease) Onset Date: 08/12/15 Current Visit: No Status: Chronic Plan: currently stable. Will start her on her home medicaitons. Qualifiers: COPD type: COPD with acute exacerbation Qualified Code(s): J44.1 - Chronic obstructive pulmonary disease with (acute) exacerbation (3) Chronic renal disease, stage 2, mildly decreased glomerular filtration rate (GFR) between 60-89 mL/min/1.73 square meter Onset Date: 12/18/15 Current Visit: No Status: Chronic Plan: Will continue the fluids and monitor her creatine (4) Diabetes mellitus Onset Date: 04/13/18 Current Visit: No Status: Chronic Plan: Maddie is on humalog. Will start her on her home medications. Continue her prednisone. Will place a mild sliding scale on the patient,. 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
[2018-12-09] MEDS ORDERED: LISINOPRIL 5 MG TAB PO SCH (16:00)
[2018-12-09] MEDS: HUMALOG MIX 75/25 100 UNITS/ML SQ SCH (17:00)
[2018-12-09] MEDS: ENOXAPARIN 30 MG/0.3 ML SQ SCH (17:43)
[2018-12-09] MEDS: METOPROLOL TAR 25 MG TAB PO SCH (17:43)
[2018-12-10] MEDS: DOXYCYCLINE 100 MG in NA CHLORIDE 0.9% 100 ML IVPB SCH (04:17)
[2018-12-10] MEDS: METOPROLOL TAR 25 MG TAB PO SCH (05:19)
[2018-12-10 06:31] LABS: Absolute Lymphocytes (CBC) 1.9 K/uL (0.7-4.9); Basophils % 0.8 % (0-1.3); Hematocrit 30.9 % (36.0-45.0); Lymphocytes % 30.7 % (15.3-44.8); MPV 7.4 fL (7.6-11.3); RBC Red Blood Cell Count 3.38 M/uL (3.86-4.86)
[2018-12-10 06:42] LABS: Albumin 2.8 g/dL (3.4-5.0); Bilirubin Total 0.3 mg/dL (0.2-1.0); Protein, Total 5.6 g/dL (6.4-8.2)
[2018-12-10] MEDS: NA CHLORIDE 0.9% 1,000 ML IV SCH (07:00)
[2018-12-10] MEDS: INSULIN -REGULAR HUMAN 50 UNIT/0.5 ML ML SQ SCH ×2 (07:30→12:33)
[2018-12-10] MEDS ORDERED: PROMETHAZINE 25 MG/ML VIAL IV PRN (08:02)
[2018-12-10] MEDS: ARFORMOTEROL TARTRATE 15 MCG/2 ML VIAL.NEB NEB SCH (08:30)
[2018-12-10] MEDS: AMIODARONE HCL 200 MG TAB PO SCH (09:35)
[2018-12-10] MEDS: FUROSEMIDE 20 MG TABLET PO SCH (09:36)
[2018-12-10] MEDS: predniSONE 5 MG TAB PO SCH (09:37)
[2018-12-10] MEDS: ASPIRIN 81 MG CHEWABLE TABLET PO SCH (09:37)
--- NOTE | 2018-12-10 10:16 | P.DS ---
Admission Date: 12/08/18 Discharge Date: 12/10/18 Primary Care Provider: Vinay Romano Disposition: ROUTINE DISCHARGE Discharge Condition: GOOD Reason for Admission: Multi drug resistant UTI - Problems (1) UTI (urinary tract infection) Current Visit: Yes Status: Chronic Qualifiers: Urinary tract infection type: site unspecified Hematuria presence: without hematuria Qualified Code(s): N39.0 - Urinary tract infection, site not specified (2) COPD (chronic obstructive pulmonary disease) Onset Date: 08/12/15 Current Visit: No Status: Chronic Qualifiers: COPD type: COPD with acute exacerbation Qualified Code(s): J44.1 - Chronic obstructive pulmonary disease with (acute) exacerbation (3) Chronic renal disease, stage 2, mildly decreased glomerular filtration rate (GFR) between 60-89 mL/min/1.73 square meter Onset Date: 12/18/15 Current Visit: No Status: Chronic (4) Diabetes mellitus Onset Date: 04/13/18 Current Visit: No Status: Chronic Qualifiers: Diabetes mellitus type: type 2 Diabetes mellitus shelter insulin use: with shelter use Diabetes mellitus complication status: with other specified complication Qualified Code(s): E11.69 - Type 2 diabetes mellitus with other specified complication; Z79.4 - correction (current) use of insulin (5) Hypertension Current Visit: No Status: Chronic Qualifiers: Hypertension type: essential hypertension Qualified Code(s): I10 - Essential (primary) hypertension Brief History of Present Illness: Patient is an office patient of Annia Romano. She has been having recurrent UTI' s since a hospitalization in [facility] this past July. She has been treated as an out patient on multiple rounds of antibiotics for the past few months. She has an appointment with [facility]. Her last urine showed a multi drug resistant UTI. The patient has multiple drug allergies. So choosing the appropriate antibiotic was difficulty. We had choosen amikacin IM as an outpatient. However the pharmacies in the area would not be able to provide it till next week. Mrs Romano called the patient and found that her symptoms of dysuria were worsening. Fearing that the patient would worsen without treatment we decided to admit her. 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 She has been having this for several months. States she gets shakes daily. Occasional abominal pain As she was not able to get her medications as an out patient on a Tuesday we admitted her. The patient this morning states she has to go home before we kill her. She states she has to take her medications at certain times with food. Has been calling the nursing staff several times. This all points to her having taken the sick role. Her daughter seems to help her maintain this. Not that she does not have mulitple morbidities that would contribute to her not feeling well. She is on prednisone and multiple inhalers. She has multiple medications. The patient would not feel well with all this. Will discharge her today as per her wishes. She has a follow up with [facility] on the coming tuesday. Will discuss with her PCP Annia Romano about perhaps trying to decrease the medications. Which is actual appropriate in the geriatric population. It does improve quality of life. Vital Signs/Physical Exam: Temp Pulse Resp BP Pulse Ox 97.3 F 88 18 167/67 H 95 12/10/18 08:00 12/10/18 08:00 12/10/18 08:00 12/10/18 08:00 12/10/18 08:00 General: Alert, In no apparent distress HEENT: Atraumatic, PERRLA, EOMI Neck: Supple, JVD not distended Respiratory: Clear to auscultation bilaterally, Normal air movement Cardiovascular: Regular rate/rhythm, Normal S1 S2 Gastrointestinal: Normal bowel sounds, No tenderness Musculoskeletal: No tenderness Integumentary: No rashes Neurological: Normal speech, Normal tone, Normal affect Lymphatics: No axilla or inguinal lymphadenopathy Laboratory Data at Discharge: WBC 6.2 K/uL (4.3-10.9) 12/10/18 05:59 Hgb 10.4 g/dL (12.0-15.0) L 12/10/18 05:59 Hct 30.9 % (36.0-45.0) L 12/10/18 05:59 Plt Count 159 K/uL (152-406) 12/10/18 05:59 Sodium 142 mmol/L (136-145) 12/10/18 05:59 Potassium 4.0 mmol/L (3.5-5.1) 12/10/18 05:59 BUN 16 mg/dL (7-18) 12/10/18 05:59 Creatinine 0.86 mg/dL (0.55-1.3) 12/10/18 05:59 Glucose 128 mg/dL (74-106) H 12/10/18 05:59 Total Bilirubin 0.3 mg/dL (0.2-1.0) 12/10/18 05:59 AST 24 U/L (15-37) 12/10/18 05:59 ALT 23 U/L (12-78) 12/10/18 05:59 Alkaline Phosphatase 55 U/L (45-117) 12/10/18 05:59 Home Medications: Albuterol Sulfate [Proair Hfa] 1 inh IN TID PRN 12/08/18 Arformoterol Tartrate [Brovana] 1 inh IN BID 12/08/18 Insulin Lispro [Humalog] 12 units SQ BEDTIME 12/08/18 Insulin Lispro [Humalog] 34 units SQ DAILY 12/08/18 Krill/Om-3/Dha/Epa/Phospho/Ast [Krill Oil 1,000 mg Softgel] 1 cap PO DAILY 12/08 L.acidoph,Paracasei, B.lactis [Probiotic] 1 cap PO DAILY 12/08/18 RX: Amiodarone HCl 100 mg PO DAILY 12/08/18 RX: Furosemide [Lasix*] 20 mg PO DAILY 12/08/18 RX: Lisinopril 5 mg PO DAILY 12/08/18 RX: Metoprolol Tartrate 25 mg PO BID 12/08/18 RX: Ondansetron [Zuplenz] 4 mg PO DAILY PRN 12/08/18 RX: Sertraline [Zoloft*] 75 mg PO DAILY 12/08/18 RX: Vitamin D [Drisdol*] 1 cap PO BID 12/08/18 RX: predniSONE [Prednisone*] 5 mg PO DAILY 12/08/18 Tiotropium [place] [Spiriva] 1 inh IN DAILY 12/08/18 Ubidecarenone [Co Q-10] 1 cap PO DAILY 12/08/18 Vit A,C & E/Lutein/Minerals [Ocuvite Tablet] 1 tab PO DAILY 12/08/18 Phenazopyridine HCl [Pyridium] 100 mg PO TID* 2 Days #6 tablet 12/10/18 RX: Doxycycline Hyclate 100 mg PO BID 2 Days #6 tablet 12/10/18 New Medications: RX: Doxycycline Hyclate 100 mg PO BID 2 Days #6 tablet Phenazopyridine HCl [Pyridium] 100 mg PO TID* 2 Days #6 tablet Diet: ADA Time spent managing pt's care (in minutes): 35
[2018-12-10 12:22] VITALS: O2SAT 98
[2018-12-10 17:03] VITALS: BP 132/60; TEMP 98.6
--- OUTSIDE RECORDS SUMMARY | 2018-12-24 11:30 | XMS REPORT ---
:1930 Author Organization [facility] Address [address] [place] [address] Care Team Providers Name Role Phone Unavailable Unavailable Unavailable Payers Payer Name Policy Type Policy Number Effective Date Expiration Date Problems This patient has no known problems. Allergies, Adverse Reactions, Alerts Allergy Name Allergy Status Severity Reaction(s) Onset Inactive Treating Comments Type Date Date Clinician iodine DA Active MO 08 00:00: 00 ciprofloxacin DA Active U 3- 00:00: 00 Fyqjzzx-Mtw-Fsp DA Active U Reductase 04-14 Inhibitor 00:00: 00 Penicillins DA Active MO 2012-02 00:00: 00 codeine DA Active MO 2012-02 00:00: 00 adhesive DA Active U 2012-02 00:00: 00 Medications This patient has no known medications. Encounters Start End Encounter Admission Attending Care Care Encounter Date/Time Date/Time Type Type Clinicians Facility Department ID 2018-09-09 Inpatient U [facility] [id number] 14:59:00 Results Test Description Test Time Test Comments Text Results Atomic Results Result Comments GLUCOSE BEDSIDE TESTING 2018-04-24 11:31:00 Test Item Value Reference Range Comments GLUCOSE BEDSIDE TESTING (test code=GLUBED) 165 MG/DL 60-99 GLUCOSE BEDSIDE [id number] 08:35:00 Test Item Value Reference Range Comments GLUCOSE BEDSIDE TESTING (test code=GLUBED) 106 MG/DL 60-99 GLUCOSE BEDSIDE [id number] 21:27:00 Test Item Value Reference Range Comments GLUCOSE BEDSIDE TESTING (test code=GLUBED) 120 MG/DL 60-99 GLUCOSE BEDSIDE [id number] 16:37:00 Test Item Value Reference Range Comments GLUCOSE BEDSIDE TESTING (test code=GLUBED) 203 MG/DL 60-99 GLUCOSE BEDSIDE [id number] 12:26:00 Test Item Value Reference Range Comments GLUCOSE BEDSIDE TESTING (test code=GLUBED) 96 MG/DL 60-99 GLUCOSE BEDSIDE [id number] 07:56:00 Test Item Value Reference Range Comments GLUCOSE BEDSIDE TESTING (test code=GLUBED) 153 MG/DL 60-99 GLUCOSE BEDSIDE [id number] 20:19:00 Test Item Value Reference Range Comments GLUCOSE BEDSIDE TESTING (test code=GLUBED) 229 MG/DL 60-99 GLUCOSE BEDSIDE [id number] 16:49:00 Test Item Value Reference Range Comments GLUCOSE BEDSIDE TESTING (test code=GLUBED) 191 MG/DL 60-99 GLUCOSE BEDSIDE [id number] 12:48:00 Test Item Value Reference Range Comments GLUCOSE BEDSIDE TESTING (test code=GLUBED) 194 MG/DL 60-99 GLUCOSE BEDSIDE [id number] 07:39:00 Test Item Value Reference Range Comments GLUCOSE BEDSIDE TESTING (test code=GLUBED) 200 MG/DL 60-99 GLUCOSE BEDSIDE [id number] 05:51:00 Test Item Value Reference Range Comments GLUCOSE BEDSIDE TESTING (test code=GLUBED) 225 MG/DL 60-99 GLUCOSE BEDSIDE [id number] 23:44:00 Test Item Value Reference Range Comments GLUCOSE BEDSIDE TESTING (test 441 MG/DL 60-99 Call Lab Stat GLu~ code=GLUBED) [id number] 21:43:00 Test Item Value Reference Range Comments GLUCOSE (test code=GLU) 392 MG/DL 74-106 CALLED TO MAINE Castrejon& LONA ON 04/21/18 AT 2143 BY Annie Blackmon GLUCOSE BEDSIDE [id number] 17:57:00 Test Item Value Reference Range Comments GLUCOSE BEDSIDE TESTING (test code=GLUBED) 257 MG/DL 60-99 - XR CHEST [id number] 17:15:00 Patient Name: SUSANA YAO Unit No: [id number] EXAMS: CPT CODE: [id number] XR CHEST 1V 68717 Location: T18 CHEST X-RAY: Portable AP frontal [...] Sofi Haider (RT) (AART) Transcrpt Date/Tm/Trnsp: 04/21/2018 (983) [email or web address] Orig Print D/T: S: 04/21/2018 (7448) [facility] NAME: SUSANA AYO [address] PHYS: [place] [address] : 1930 AGE: 88 SEX: F LOC: [id number].352 A PHONE #: [phone] EXAM DATE: 04/21/2018 STATUS: ADM IN FAX #: [phone] RADIOLOGY NO: PAGE 1 Signed ReportGLUCOSE BEDSIDE [id number] 16:57:00 Test Item Value Reference Range Comments GLUCOSE BEDSIDE TESTING (test code=GLUBED) 147 MG/DL 60-99 PROTHROMBIN [id number] 11:24:00 Test Item Value Reference Range Comments [...] systemic embolism. 3.0 - 4.5 Comments to [employer]: PLEASE DRAW ASAPPTT [id number] 11:24:00 Test Item Value Reference Range Comments PTT ACTIVATED (test code=APTT) 24.2 SECONDS 22.0-33.0 Comments to [employer]: PLEASE DRAW ASAPGLUCOSE BEDSIDE [id number] 08: 03:00 Test Item Value Reference Range Comments GLUCOSE BEDSIDE TESTING (test code=GLUBED) 129 MG/DL 60-99 GLUCOSE BEDSIDE [id number] 21:47:00 Test Item Value Reference Range Comments GLUCOSE BEDSIDE TESTING (test code=GLUBED) 199 MG/DL 60-99 GLUCOSE BEDSIDE [id number] 16:15:00 Test Item Value Reference Range Comments GLUCOSE BEDSIDE TESTING (test code=GLUBED) 91 MG/DL 60-99 GLUCOSE BEDSIDE [id number] 12:34:00 Test Item Value Reference Range Comments GLUCOSE BEDSIDE TESTING (test code=GLUBED) 109 MG/DL 60-99 BASIC METABOLIC [id number] 11:32:00 Test Item Value Reference Range Comments [...] HIGH.........130-159 mg/dL HIGH.........160-189 mg/dL VERY HIGH.........>/=190 mg/dL [id number] 11:32:00 Test Item Value Reference Range Comments TROPONIN-I (test 0.572 NG/ML 0.012-0.033 CALLED TO RAY& READBACK ON code=TROPI) 04/20/18 AT 1132 BY Alberto Betancur BASIC METABOLIC [id number] 11:14:00 Test Item Value Reference Range Comments [...] code=HDL) LIPOPROTEIN LDL (test MG/DL 0-99 code=LDL) [id number] 11:14:00 Test Item Value Reference Range Comments TROPONIN-I (test code=TROPI) NG/ML 0.0-0.045 GLYCOSYLATED HEMOGLOBIN [id number] 11:11:00 Test Item Value Reference Range Comments [...] (test 151 MG/DL 70-110 code=MBG) CBC W/AUTO [id number] 10:48:00 Test Item Value Reference Range Comments [...] (test code=NRBC#) 0.00 K/mm3 0.0-0.1 GLUCOSE BEDSIDE [id number] 08:27:00 Test Item Value Reference Range Comments GLUCOSE BEDSIDE TESTING (test code=GLUBED) 112 MG/DL 60-99 GLUCOSE BEDSIDE [id number] 06:18:00 Test Item Value Reference Range Comments GLUCOSE BEDSIDE TESTING (test code=GLUBED) 92 MG/DL 60-99 [id number] 02:10:00 Test Item Value Reference Range Comments TROPONIN-I (test 0.679 NG/ML 0.012-0.033 CALLED TO [facility] imu & code=TROPI) READBACK ON 04/20/18 AT 0209 BY Sejal Monson GLUCOSE BEDSIDE [id number] 23:12:00 Test Item Value Reference Range Comments GLUCOSE BEDSIDE TESTING (test code=GLUBED) 196 MG/DL 60-99 BASIC METABOLIC [id number] 21:51:00 Test Item Value Reference Range Comments [...] (test code=CA) 9.5 MG/DL 8.4-10.2 CBC W/AUTO [id number] 21:32:00 Test Item Value Reference Range Comments [...] (test code=NRBC#) 0.00 K/mm3 0.0-0.1 LIPOPROTEIN LDL [id number] 19:21:00 Test Item Value Reference Range Comments LIPOPROTEIN LDL DIRECT (test 126 mg/dL 100-129 code=LDLDIR) ===Reference Interval: mg/dL mmol/L ---------Optimal <100 <2.6Near/above optimal 100-129 2.6-3.3Borderline High 130-159 3.4-4.1High 160-189 4.1-4.9Very High >=190 >=4.9=========This LDL result is a direct measurement.========= [id number] 19:21:00 Test Item Value Reference Range Comments TROPONIN-I (test 0.720 NG/ML 0.012-0.033 CALLED TO KHRIS Oakes & code=TROPI) READBACK ON 04/19/18 AT 1901 Karen Gilbert LIPOPROTEIN LDL [id number] 19:04:00 Test Item Value Reference Range Comments LIPOPROTEIN LDL DIRECT (test code=LDLDIR) mg/dL 100-129 [id number] 19:04:00 Test Item Value Reference Range Comments TROPONIN-I (test 0.720 NG/ML 0.012-0.033 CALLED TO KHRIS Oakes & code=TROPI) READBACK ON 04/19/18 AT 1901 Karen Gilbert GLUCOSE BEDSIDE [id number] 12:58:00 Test Item Value Reference Range Comments GLUCOSE BEDSIDE TESTING (test code=GLUBED) 289 MG/DL 60-99 GLUCOSE BEDSIDE [id number] 08:36:00 Test Item Value Reference Range Comments GLUCOSE BEDSIDE TESTING (test code=GLUBED) 128 MG/DL 60-99 GLUCOSE BEDSIDE [id number] 20:27:00 Test Item Value Reference Range Comments GLUCOSE BEDSIDE TESTING (test code=GLUBED) 214 MG/DL 60-99 GLUCOSE BEDSIDE [id number] 16:59:00 Test Item Value Reference Range Comments GLUCOSE BEDSIDE TESTING (test code=GLUBED) 313 MG/DL 60-99 GLUCOSE BEDSIDE [id number] 12:15:00 Test Item Value Reference Range Comments GLUCOSE BEDSIDE TESTING (test code=GLUBED) 141 MG/DL 60-99 GLUCOSE BEDSIDE [id number] 10:30:00 Test Item Value Reference Range Comments GLUCOSE BEDSIDE TESTING (test code=GLUBED) 139 MG/DL 60-99 GLUCOSE BEDSIDE [id number] 07:52:00 Test Item Value Reference Range Comments GLUCOSE BEDSIDE TESTING (test code=GLUBED) 81 MG/DL 60-99 GLUCOSE BEDSIDE [id number] 18:39:00 Test Item Value Reference Range Comments GLUCOSE BEDSIDE TESTING (test code=GLUBED) 336 MG/DL 60-99 GLUCOSE BEDSIDE [id number] 12:50:00 Test Item Value Reference Range Comments GLUCOSE BEDSIDE TESTING (test code=GLUBED) 127 MG/DL 60-99 GLUCOSE BEDSIDE [id number] 12:49:00 Test Item Value Reference Range Comments GLUCOSE BEDSIDE TESTING (test code=GLUBED) 204 MG/DL 60-99 GLUCOSE BEDSIDE [id number] 20:45:00 Test Item Value Reference Range Comments GLUCOSE BEDSIDE TESTING (test code=GLUBED) 243 MG/DL 60-99 GLUCOSE BEDSIDE [id number] 16:05:00 Test Item Value Reference Range Comments GLUCOSE BEDSIDE TESTING (test code=GLUBED) 192 MG/DL 60-99 GLUCOSE BEDSIDE [id number] 11:02:00 Test Item Value Reference Range Comments GLUCOSE BEDSIDE TESTING (test code=GLUBED) 159 MG/DL 60-99 GLUCOSE BEDSIDE [id number] 07:43:00 Test Item Value Reference Range Comments GLUCOSE BEDSIDE TESTING (test code=GLUBED) 138 MG/DL 60-99 GLUCOSE BEDSIDE [id number] 04:20:00 Test Item Value Reference Range Comments GLUCOSE BEDSIDE TESTING (test code=GLUBED) 227 MG/DL 60-99 GLUCOSE BEDSIDE [id number] 04:20:00 Test Item Value Reference Range Comments GLUCOSE BEDSIDE TESTING (test code=GLUBED) 275 MG/DL 60-99 GLUCOSE BEDSIDE [id number] 20:27:00 Test Item Value Reference Range Comments GLUCOSE BEDSIDE TESTING (test code=GLUBED) 258 MG/DL 60-99 GLUCOSE BEDSIDE [id number] 17:10:00 Test Item Value Reference Range Comments GLUCOSE BEDSIDE TESTING (test code=GLUBED) 283 MG/DL 60-99 GLUCOSE BEDSIDE [id number] 05:52:00 Test Item Value Reference Range Comments GLUCOSE BEDSIDE TESTING (test code=GLUBED) 276 MG/DL 60-99 COMPREHENSIVE METABOLIC [id number] 21:59:00 Test Item Value Reference Range Comments [...] ALKALINE PHOSPHATASE (test 58 UNITS/L 38-126 code=ALKP) [id number] 21:59:00 Test Item Value Reference Range Comments PHOSPHOROUS (test code=PHOS) 2.4 MG/DL 2.5-4.5 [id number] 21:59:00 Test Item Value Reference Range Comments MAGNESIUM (test code=MAG) 2.1 MG/DL 1.6-2.3 CBC W/AUTO [id number] 21:46:00 Test Item Value Reference Range Comments [...] (test code=NRBC#) 0.00 K/mm3 0.0-0.1 GLUCOSE BEDSIDE [id number] 21:36:00 Test Item Value Reference Range Comments GLUCOSE BEDSIDE TESTING (test code=GLUBED) 268 MG/DL 60-99 GLUCOSE BEDSIDE [id number] 21:36:00 Test Item Value Reference Range Comments GLUCOSE BEDSIDE TESTING (test code=GLUBED) 223 MG/DL 60-99 GLUCOSE BEDSIDE [id number] 21:36:00 Test Item Value Reference Range Comments GLUCOSE BEDSIDE TESTING (test code=GLUBED) 147 MG/DL 60-99 GLUCOSE BEDSIDE [id number] 21:36:00 Test Item Value Reference Range Comments GLUCOSE BEDSIDE TESTING (test code=GLUBED) 194 MG/DL 60-99 - XR CHEST [id number] 20:15:00 Patient Name: SUSANA YAO Unit No: [id number] EXAMS: CPT CODE: [id number] XR CHEST 1V 31232 AP VIEW OF THE CHEST LOCATION: B2 [...] Annalisa Avelar (RT) Transcrpt Date/Tm/Trnsp: 04/14/2018 (2014) RavindraR.JSL Orig Print D/T: S: 04/14/2018 (2018) [facility] NAME: [id number] [address] PHYS: [place] [address] : 1930 AGE: 88 SEX: F LOC: Z.SI11 A PHONE #: [phone] EXAM DATE: 04/14/2018 STATUS: ADM IN FAX #: [phone] RADIOLOGY NO: PAGE 1 Signed ReportGLUCOSE BEDSIDE [id number] 06:58:00 Test Item Value Reference Range Comments GLUCOSE BEDSIDE TESTING (test code=GLUBED) 230 MG/DL 60-99
--- OUTSIDE RECORDS SUMMARY | 2018-12-24 11:30 | XMS REPORT ---
:1930 Author Organization [employer] Care Team Providers Name Role Phone Annia Romano Provider Role Unavailable Allergies, Adverse Reactions, Alerts Substance Reaction Event Type PCN rash Drug Allergy Nitrofurantoin kidney failure Drug Allergy Metformin HCl nausea Drug Allergy Levaquin CAD interaction Drug Allergy Cipro rash Drug Allergy Problems Problem Type Condition Code Onset Dates Condition Status Assessment Paroxysmal atrial fibrillation I48.0 Active Assessment Hospital discharge follow-up Z09 Active Assessment Hypertension I10 Active Problem Recurrent UTI N39.0 Active Problem Supplemental oxygen dependent Z99.81 Active Problem Weakness R53.1 Active Problem Dysuria R30.0 Active Problem Diverticulitis of large intestine K57.32 Active without perforation or abscess without bleeding Problem Anemia due to chronic illness D63.8 Active Problem 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 Problem Chronic fatigue R53.82 Active Problem Chronic kidney disease, stage III N18.3 Active (moderate) Problem Type 2 diabetes mellitus with E11.22 Active diabetic chronic kidney disease Problem Peripheral vascular disease I73.9 Active Problem Lymphedema I89.0 Active 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 Problem Lung cancer C34.90 Active Problem Nausea alone R11.0 Active Problem Reactive depression F32.9 Active Problem Recurrent falls R29.6 Active Problem Hospital discharge follow-up Z09 Active Problem Hypertension I10 Active Problem Wheezing R06.2 Active Problem Diverticulitis K57.92 Active Problem COPD (chronic obstructive pulmonary J44.9 Active disease) Problem Cardiac pacemaker in situ Z95.0 Active Problem Paroxysmal atrial fibrillation I48.0 Active Problem Nocturnal leg cramps G47.62 Active Problem Malaise and fatigue R53.81 Active Medications Medication Code Code Instructions Start End Status Dosage System Date Date Zebeta NDC 0 5 MG Orally Active 1 tablet Once a day ProAir HFA ND 44310492977 108 (90 Base) Active 2 puffs as MCG/ACT needed Inhalation every 6 hrs Fluticasone ND 28878867476 50 MCG/ACT Active 1 spray in Propionate Nasally Once a each day nostril Ocuvite Eye + [facility] 84442912008 - Orally Active not defined Multi Humalog Mix [facility] [address]-97 (75-25) 100 Active 34 units 75/25 KwikPen UNIT/ML Subcutaneous q am Colace [facility] [address]-15 Active not defined Zofran [facility] 40622155989 4 MG Orally Mar 17, Active 1 tablet Three time a 2018 day Brovana [facility] 93702528721 15 MCG/2ML Active 2 ml Inhalation Twice a day Vitamin B12 [facility] 36851089026 100 MCG Orally Active 1 tablet Once a day Lubricant Eye [facility] 04694640133 0.4-0.3 % Active as directed Drops Ophthalmic Amiodarone HCl [facility] 98866358239 100 MG Orally Active 1 tablet Once a day Lisinopril [facility] [address]-83 10 MG Orally Active 1 tablet Once a day hold if BP under 100/60. Pepcid [facility] 69496216640 20 MG Orally Active 1 tablet at Once a day bedtime Tylenol [facility] [address]-67 Active not defined Sertraline HCl [facility] 92698854441 50 MG Orally Active 1 tablet Once a day Probiotic [facility] 72903348829 - Orally Active not defined Formula Vitamin D3 [facility] 83807420562 1000 UNIT Active 1 capsule Orally Once a day Humalog [facility] [address]-84 Active not defined KwikPen Ocuvite [facility] 0 Active not defined Furosemide [facility] 47773971259 20 MG Orally Active TAKE 1 Twice a day TABLET BY MOUTH ONCE DAILY Fenofibrate [facility] 97154766741 145 Active TAKE 1 TABLET BY MOUTH EVERY DAY Reglan [facility] 72133106159 10 MG Orally Active 1 tablet Twice a day before meals Albuterol [facility] 47985456279 Active not defined Aspirin [facility] 36451936209 81 MG Orally Active 1 tablet Once a day Krill Oil [facility] 98060441433 1000 MG Orally Active as directed bedtime Estradiol [facility] 64670714357 0.1 MG/GM Dec 12, Active as directed Vaginal Two 2019 times a Week Co Q 10 [facility] 40142177701 100 MG Orally Active 1 capsule Once a day with a meal Acidophilus [facility] 62371367463 100 MG Orally Active as directed daily Humalog Mix [facility] 03765301533 (75-25) 100 Active as directed 75/25 KwikPen UNIT/ML Subcutaneous 14 units pm Metoprolol [facility] 72611943550 25 MG Orally Active 1 tablet Tartrate Twice a day with food Vitamin E [facility] 82463156719 400 UNIT Orally Active 1 capsule Once a day Prednisone [facility] 66978120291 5 MG Orally Active 1 tablet Once a day with food or milk Spiriva [facility] 33495699139 18 MCG Active 1 capsule HandiHaler Inhalation Once a day Results No Known Results Summary Purpose eClinicalWorks Submission
--- OUTSIDE RECORDS SUMMARY | 2018-12-24 11:30 | XMS REPORT ---
:1930 Author Organization [employer] Care Team Providers Name Role Phone Marian New Provider Role Unavailable Allergies No Known Allergies Problems Problem Type Condition Code Onset Dates Condition Status Problem Recurrent UTI N39.0 Active Problem Supplemental [...] I73.9 Active Problem Lymphedema I89.0 Active Problem senior living current use of insulin Z79.4 Active Problem [...] Problem Malaise and fatigue R53.81 Active Medications No Known Medications Results No Known Results Summary Purpose [employer]ClinicalWorks Submission
== END 2018-12-10 12:44 | disposition home or self-care (01) | DRG 690 ==
LOC: 4TH 13:10
PROVIDERS: ADMIT Internal Medicine; ATTEND Internal Medicine
DX: N39.0 Urinary tract infection, site not specified (principal); Z16.24 Resistance to multiple antibiotics; I12.9 Hypertensive chronic kidney disease with stage 1 through stage 4 chronic kidney disease, or unspecified chronic kidney disease; E11.22 Type 2 diabetes mellitus with diabetic chronic kidney disease; N18.2 Chronic kidney disease, stage 2 (mild); J44.9 Chronic obstructive pulmonary disease, unspecified; Z95.1 Presence of aortocoronary bypass graft; Z88.0 Allergy status to penicillin; Z91.041 Radiographic dye allergy status
CPT/HCPCS: 36415; 80053; 81001; 82947; 84439; 84443; 85025; 87077; 87086; 87088; 87186; 90471; 97116; 97161; 97530; J1650; J1815; J2550; J7030; J7512; J7605; Q2035

== ENCOUNTER 2020-05-23 04:13 | Inpatient (IN) | payer OTHER, MEDICARE ==
--- OUTSIDE RECORDS SUMMARY | 2020-05-23 04:22 | XMS REPORT | Continuity of Care Document ---
:1930 Author Organization [facility] t Address [address] [place] [address] Care Team Providers Name Role Phone Doctor Unassigned, Name Attending Clinician Unavailable Russel HORTON Attending Clinician [place] Doss Attending Clinician Bahman Mahmood Attending Clinician [place] Doss Admitting Clinician Bahman Mahmood Admitting Clinician Payers Payer Name Policy Type Policy Number Effective Date Expiration Date S ource Problems Condition Condition Condition Status Onset Resolution Last Treating Co mments Source Name Details Category Date Date Treatment Clinician Date ABDOMINAL Diagnosis Active 2018-09-26 Memoria AORTIC 09-09 21:43:00 l ANEURYSM 00:00: [place] ABDOMINAL 00 AORTIC ANEURYSM Active 09/09/2018 [facility] AORTIC Diagnosis Active 2017-022018-03-12 Mem oria ANEURYSM 0 14:48:00 l AORTIC 00:00: [place] ANEURYSM 00 Active 12/12/2017 [facility] ENDOGRAFT Diagnosis Active 2017-10-05 Memoria LEAK/ 09-14 14:49:00 l GROWING 00:00: [place] AAA ENDOGRAFT 00 LEAK/ GROWING AAA Active 09/14/2017 [facility] Chronic Problem 2018-09-30 Derek hoda systolic 12:16:07 l (congestiv Chronic Her sauceda e) heart systolic failure (congestiv e) heart failure 09/30/2018 [facility] Emphysema, Problem 2018-09-30 M emoria unspecifie 12:16:07 l d [place] Emphysema, unspecifie d 09/30/2018 [facility] Dependence Problem 2018-09-30 M emoria on 12:16:07 l supplement Devan n al oxygen 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 oxygen 09/30/2018 [facility] 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 09/30/2018 [facility] Personal Problem 2018-09-30 Mem oria history of 12:16:07 l nicotine Personal Herm derek dependence history of nicotine dependence 09/30/2018 [facility] Abdominal Problem 2018-09-30 Me moria aortic 12:16:07 l aneurysm, [place] without Abdominal rupture aortic aneurysm, without rupture 09/30/2018 [facility] Acute Problem 2018-04-11 Memor ia cystitis 13:45:41 l without Acute [place] hematuria cystitis without hematuria 04/11/2018 [facility] Proteus Problem 2018-04-11 Derek hoda (mirabilis 13:45:41 l ) Proteus [place] (morganii) (mirabilis as the ) cause of (morganii) diseases as the classified cause of elsewhere diseases classified elsewhere 04/11/2018 [facility] Unspecifie Problem 2018-04-11 M emoria d urinary 13:45:41 l incontinen Devan n ce Unspecifie d urinary incontinen ce 04/11/2018 [facility] Hypertensi Problem 2018-04-11 M emoria ve heart 13:45:41 l disease [place] with heart Hypertensi failure ve heart disease with heart failure 04/11/2018 [facility] Heart Problem 2018-04-11 Memor ia failure, 13:45:41 l unspecifie Heart Kimberli nn d failure, unspecifie d 04/11/2018 [facility] Chronic Problem 2018-04-11 Derek hoda obstructiv 13:45:41 l 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, e unspecifie pulmonary d disease, unspecifie d 04/11/2018 [facility] Anemia in Problem 2018-04-11 Me moria other 13:45:41 l chronic Anemia [place] diseases in other classified chronic elsewhere diseases classified elsewhere 04/11/2018 [facility] Type 2 Problem 2018-04-11 Memor ia diabetes 13:45:41 l mellitus Type 2 Devan n without diabetes complicati mellitus ons without complicati ons 04/11/2018 [facility] Hypoxemia Problem 2018-04-11 Me moria 13:45:41 l [place] Hypoxemia 04/11/2018 [facility] Hyperlipid Problem 2018-04-11 M emoria emia, 13:45:41 l unspecifie Devan n d Hyperlipid emia, unspecifie d 04/11/2018 [facility] 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 04/11/2018 [facility] Constipati Problem 2018-04-11 M emoria on, 13:45:41 l unspecifie Devan n d Constipati on, unspecifie d 04/11/2018 [facility] Old Problem 2018-04-11 Memor ia myocardial 13:45:41 l infarction 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 04/11/2018 [facility] snf Problem 2018-04-11 Me moria (current) 13:45:41 l use of Long [place] systemic term steroids (current) use of systemic steroids 04/11/2018 [facility] Personal Problem 2018-04-11 Mem oria history of 13:45:41 l other Personal Devan n malignant history of neoplasm 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 lung 04/11/2018 [facility] Presence Problem 2018-04-11 Mem oria of 13:45:41 l automatic Presence Her sauceda (implantab of le) automatic cardiac (implantab defibrilla le) tor cardiac defibrilla tor 04/11/2018 [facility] Presence Problem 2018-04-11 Mem oria of 13:45:41 l aortocoron Presence He rmann naima bypass of graft aortocoron naima bypass graft 04/11/2018 [facility] 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 Me moria (current) 13:45:41 l use of Long [place] insulin term (current) use of insulin 04/11/2018 [facility] Acute Problem Active 2018-09-30 Memor ia cystitis 12:16:07 l (disorder) Acute Kimberli nn cystitis (disorder) Active Problem 09/30/2018 [facility] Dysfunctio Problem Active 2018-09-30 M emoria nal 12:16:07 l voiding of Devan n urine Dysfunctio (finding) nal voiding of urine (finding) Active Problem 09/30/2018 [facility] Recurrent Problem Active 2018-09-30 Me moria urinary 12:16:07 l tract [place] infection Recurrent (disorder) urinary tract infection (disorder) Active Problem 09/30/2018 [facility] Urinary Problem Active 2018-09-30 Derek hoda incontinen 12:16:07 l ce Urinary [place] (finding) incontinen ce (finding) Active Problem 09/30/2018 [facility] Aneurysm Problem Resolve 2018-09-30 2018-09-30 Memoria of d 02-14 12:16:07 12:16:07 l infrarenal Aneurysm 00:00: He rmann abdominal of 00 aorta infrarenal (disorder) abdominal aorta (disorder) Resolved 02/15/2004 Problem 09/30/2018 [facility] Implantati Problem Resolve 2018-09-30 2018-09-30 Memoria on of d 02-14 12:16:07 12:16:07 l automatic 00:00: [place] cardiovert Implantati 00 er/defibri on of llator, automatic total cardiovert system er/defibri (AICD) llator, (procedure total ) system (AICD) (procedure ) Resolved 02/15/2004 Problem 09/30/2018 [facility] Atheroscle Problem Resolve 2018-09-30 2018-09-30 Memoria rosis of d 02-14 12:16:07 12:16:07 l coronary 00:00: [place] artery [place] 00 (disorder) rosis of coronary artery (disorder) Resolved 02/15/1992 Problem 09/30/2018 [facility] Cardiomyop Problem Resolve 1992-0 2018-09-30 2018-09-30 Memoria athy d 1 12:16:07 12:16:07 l (disorder) 00:00: Devan n Cardiomyop 00 athy (disorder) Resolved 02/15/1992 Problem 09/30/2018 [facility] Chronic Problem Resolve 1993-0 2018-09-30 2018-09-30 Memoria obstructiv d 1 12:16:07 12:16:07 l e lung Chronic 00:00: [place] disease obstructiv 00 (disorder) e lung disease (disorder) Resolved 02/15/1992 Problem 09/30/2018 [facility] Hypertensi Problem Resolve 2018-09-30 2018-09-30 Memoria ve d 02-14 12:16:07 12:16:07 l disorder, 00:00: [place] systemic Hypertensi 00 arterial ve (disorder) disorder, systemic arterial (disorder) Resolved 02/15/1992 Problem 09/30/2018 [facility] Diabetes Problem Resolve 1987-0 2018-09-30 2018-09-30 Memoria mellitus d 02-14 12:16:07 12:16:07 l (disorder) Diabetes 00:00: He rmann mellitus 00 (disorder) Resolved 02/14/1987 Problem 09/30/2018 [facility] History of Past Illness Condition Condition Condition Status Onset Resolution Last Treating Co mments Source Name Details Category Date Date Treatment Clinician Date Leakage of Problem 2018-09-30 2018[facility]09[facility] 12:16:07 12:16:07 l (bifurcati Leakage 04:22: Her sauceda on) graft of aortic 04 (replaceme (bifurcati nt), on) graft initial (replaceme encounter nt), initial encounter 03/22/2018 09/30/2018 [facility] Allergies, Adverse Reactions, Alerts Allergy Allergy Status Severity Reaction(s) Onset Inactive Treating Comm ents Source Name Type Date Date Clinician iodine DA Active [place] [facility] [place] 00:[facility]: [address] ciproflo DA Active [facility] xacin [facility]- [place] 00:00: [address] Statins- DA Active [facility]- [place] 00:00: [address] r Penicill DA Active MO 2012-02 [facility] ins 03-25 00:00: [address] codeine DA Active MO 2012-02 [facility] 03-25 00:00: [address] adhesive DA Active U 2012-02 [facility] 03-25 00:00: [address] Adhesive Adhesive Active Memori a Tape Tape l [place] statins statins Active Memoria l [place] metFORMI metFORMI Active Memori a N N l [place] penicill penicill Active Memori a ins ins l [place] ciproflo ciproflo Active Memori a xacin xacin l [place] codeine codeine Active Memoria l [place] morphine morphine Active Memori a l [place] PCN Adverse Active rash [facility] Nitrofur Adverse Active kidney [facility] an[facility] failure [facility] Metformi Adverse Active nausea [facility] n HCl Reaction [facility] Cipro Adverse Active rash [facility] Levaquin Adverse Active CAD [facility] Reaction interaction Agustina [facility] - Memoria [facility] Social History Social Habit Start Date Stop Date Quantity Comments Source Social History 2018-03-12 2018-03-12 [facility] 22:23:18 22:23:18 Medications Ordered Filled Start Stop Current Ordering Indication Dosage Frequency Signature Comments Components Source Medication Medication Date Date Medication? Clinician (SIG) Name Name Insulin Insulin Yes Annia as [facility] Syringe-Nee Syringe-Nee 2-28 [place] directed [facility] dle U-100 dle U-100 00:00: Mem oria 00 l [facility] ent Clinics lisinopril Yes 10 mg = 1 Me moria 10 mg oral 8-07 tab, PO, l tablet 17:34: Bedtime, 0 Kimberli nn 00 Refill(s) Furosemide Yes 20 mg = 1 Me moria 20 MG Oral 8-07 tab, PO, l Tablet 17:34: BID [place] 00 Diuretic, 0 Refill(s) AMIODarone Yes 100 mg = 1 M emoria 100 mg oral 8-07 tab, PO, l tablet 17:34: Daily, 0 [place] 00 Refill(s) isosorbide Yes 30 mg = 1 Me moria mononitrate 8-07 tab, PO, l 30 mg oral 17:34: QPM, 0 Kimberli nn tablet, 00 Refill(s) extended release Insulin Yes 8 unit, Memoria Glargine 8-07 SUB-Q, l 100 UNT/ML 17:34: Daily, 0 Her sauceda Injectable 00 Refill(s) Solution [Lantus] heparin Yes SUB-Q, Memoria sodium, 8-07 Q8H, 0 l porcine 17:34: Refill(s) Kimberli nn 2500 UNT/ML 00 Injectable Solution Docusate Yes 100 mg = 1 Mem oria Sodium 100 8-07 cap, PO, l MG Oral 17:34: BID, PRN Devan n Capsule 00 Constipati [Colace] on, 0 Refill(s) diphenhydrA Yes 25 mg = 1 M emoria MINE 25 mg 8-07 cap, PO, l oral 17:34: Bedtime, [place] capsule 00 PRN Insomnia, 0 Refill(s) Ondansetron No Notes: Derek hoda 8-07 (Same as: l 17:34: Zofran) [place] 00 bisacodyl Yes 10 mg = 1 Mem oria 10 mg 8-07 supp, VT, l rectal 17:34: Daily, PRN Kimberli nn suppository 00 Constipati on, 0 Refill(s) Aspirin 81 Yes 81 mg = 1 Me moria MG Enteric 8-07 tab, PO, l Coated 17:34: Daily, 0 [place] Tablet 00 Refill(s) Acetaminoph Yes 100.4 F, M emoria en 325 MG 8-07 0 l Oral Tablet 17:34: Refill(s) H ermann 00 metoprolol Yes 50 mg = 1 Me moria 50 mg oral 8-07 tab, PO, l tablet, 17:34: Q12H, 0 [place] extended 00 Refill(s) release sennosides, Yes 8.6 mg = 1 Memoria [facility] 8.6 MG 8-07 tab, PO, l Oral Tablet 17:34: BID, PRN He rmann 00 Constipati on, 0 Refill(s) melatonin 3 Yes 6 mg, PO, M emoria mg oral 8-07 Bedtime, l tablet 17:34: PRN as [place] 00 needed for insomnia, 0 Refill(s) lactobacill Yes PO, Q12H, M emoria us 09-20 0 l rhamnosus 17:34: Refill(s) Her sauceda GG 80 mg 00 oral capsule Lanolin No Notes: Memoria 0.157 MG/MG 09-19 (Same as: l / Menthol 15:08: Calmosepti He rmann 0.0044 00 ne) MG/MG / Petrolatum 0.24 MG/MG / Zinc Oxide 0.206 MG/MG Topical Ointment [Calmosepti ne] Lisinopril No Notes: Memor ia 09-19 (Same as: l 02:00: Prinivil, [place] 00 Zestril) Simethicone No Notes: Derek hoda 09-18 (Same as: l 15:13: Mylicon) [place] Imdur No Notes: Memoria 09-18 (Same l 15:08: as:Imdur) [place] 00 "Do Not Crush" Take on empty stomach/ full glass of water. Do not crush Simethicone No Notes: Derek hoda 09-18 (Same as: l 14:00: Mylicon) [place] Lisinopril No Notes: Memor ia 09-18 (Same as: l 14:00: Prinivil, [place] 00 Zestril) Nitroglycer No Notes: Derek hoda in 0.4 MG 09-18 (Same l Sublingual 13:00: as:Nitroqu H ermann Tablet 00 ick, Nitrostat) "Do Not Crush" Sublingual tablet NS (Bolus) No 250 mL, Derek hoda IV 09-18 250 ml/hr, l 12:32: Infuse [place] 00 Over: 1 hr, Route: IV, 250, Drug form: INJ, ONCE, Priority: STAT, Dosing Weight 77.6 kg, Start date: 09/18/18 7:32:00 CDT, Stop date: 09/18/18 7:32:00 CDT, 0 Phenergan No Notes: Do Mem oria 09-18 not give l 12:32: IV push. [place] 00 (Same as: Phenergan) Nitroglycer No Notes: Derek hoda in 0.4 MG 09-18 (Same l Sublingual 12:27: as:Nitroqu H ermann Tablet 00 ick, Nitrostat) "Do Not Crush" Sublingual tablet Lisinopril No Notes: Memor ia - (Same as: l 15:38: Prinivil, [place] 00 Zestril) Simethicone No Notes: Derek hoda 09-17 (Same as: l 15:38: Mylicon) [place] 00 Albuterol No Notes: Memori a 0.833 MG/ML 09-17 (Same as: l / 15:36: Duoneb) [place] Ipratropium 00 [place] 0.167 MG/ML Inhalant Solution [DuoNeb] Milk of No Notes: Memoria Magnesia 09-17 (Same as: l 15:36: Milk of [place] 00 Magnesia, MOM) Amiodarone No Notes: Memor ia - Same as: l 14:00: Cordaron, [place] 00 Pacerone Lisinopril No Notes: Memor ia 8-04 (Same as: l 14:00: Prinivil, [place] 00 Zestril) Lisinopril No Notes: Memor ia 09-16 (Same as: l 16:04: Prinivil) [place] 00 Aspirin 81 No Notes: Do Me moria MG Enteric 09-16 not crush l Coated 14:00: or chew. [place] Tablet 00 (Same As: Ecotrin) remove No Notes: Memoria patch 09-16 Remove l 11:00: patch 12 [place] 00 hours after applicatio n each day. Lidocaine No Notes: Memori a 0.05 MG/MG 09-15 Apply only l Transdermal 23:00: once for He rmann Patch 00 up to 12 hours in a 24-hour period (12 hours on and 12 hours off). (Same as: Lidoderm) "Remove old patch before applicatio n of new patch" magnesium No Notes: Memori a citrate 09-15 (Same as: l 58.2 MG/ML 21:00: Citrate of H ermann Oral 00 Magnesia) Solution Concentrat ion: 1.745 gm / 30 mL Dulcolax No Notes: Memoria Laxative 09-15 (Same As: l 21:00: Dulcolax, [place] 00 Bisco-Lax) heparin No Notes: Memoria sodium, 09-15 porcine l porcine 21:00: heparin [place] 2500 UNT/ML 00 Injectable Solution Lasix No Notes: Memoria - (Same as: l 19:00: Lasix) [place] 00 May cause GI upset. Give with food or milk. Simethicone No Notes: Derek hoda 09-15 (Same as: l 18:00: Mylicon) [place] 00 sodium No Notes: Memoria phosphate 09-14 Infuse l 16:12: over 4 [place] 00 hour. Do not infuse phosphorou s concurrent ly in the same line as TPN or IVF that contains calcium. For double lumen central lines, phosphorou s may be infused in a separate lumen from TPN. Magnesium No Notes: Memori a Oxide 09-14 (Same as: l 16:12: Mag-Ox [place] 00 400) Magnesium oxide [id number] g elemental magnesium Dose=____m g magnesium oxide (___mg elemental magnesium) Calcium No Notes: Memoria Gluconate 09-14 WASTE: F/P l 16:12: - Sink; E [place] 00 - [facility] Tra Bin Potassium No Notes: Memori a Chloride 09-14 (Same as: l 16:12: Potassium [place] 00 Chloride) potassium No Notes: Memori a phosphate-s 09-14 (Same as: l odium 16:12: Phos-NaK) [place] phosphate 00 Each 1.5 250 mg-280 gm pkt has mg-160 mg 250mg oral powder phosphorou for s. Mix reconstitut w/2.5oz ion water and stir. potassium No Notes: Memori a phosphate 09-14 (Same as: l 16:12: K [place] 00 Phosphate. ) Do not infuse phosphorou s concurrent ly in the same line as TPN or IVF that contains calcium. For double lumen central lines, phosphorou s may be infused in a separate lumen from TPN. 1 mMol phoshate has 1.47 mEq potassium Infuse over 4 hours Magnesium No Notes: Memori a Sulfate 09-14 WASTE: F/P l 16:12: - Sink; E - Municipal Trash Bin Rocephin + No Notes: Memor ia sterile 09-14 (Same As: l water 10 mL 16:00: Rocephin). Use with 100 mL NS and infuse over 30 min MEDICATION WASTE Product Size: 1000 mg Product Wasted: ___ mg Benadryl No Notes: Memoria 09-14 (Same as: l 15:45: Benadryl) Insulin No Notes: Memoria Glargine 09-14 (Same as: l 100 UNT/ML 14:00: Lantus) Do H erm not hold Solution insulin [Lantus] without contacting prescriber WASTE: F/P - Black; E - Municipal Trash Bin "single patient use only" Stable for 28 days at room temperatur e Expires in days from ____Date lactobacill No 1 tab, Derek hoda us 09-14 Route: PO, l acidophilus 14:00: Drug Form: TAB, Dosing Weight 67.273, kg, Daily, Start date: 09/14/18 9:00:00 CDT, Duration: 30 day, Stop date: 10/13/18 9:00:00 CDT Lisinopril No Notes: Memor ia 09-14 (Same as: l 14:00: Prinivil) Tylenol No Notes: Do Memor ia 09-14 not exceed l 07:37: 4 gm/day. (Same as: Tylenol) lactobacill No Notes: Derek hoda us 09-14 Same as l rhamnosus 02:00: Culturelle [facility] Budesonide No Notes: Memor ia 0.5 MG/ML 09-14 (Same As: l Inhalant 01:00: Pulmicort) Her sauceda Solution 00 Amiodarone No Notes: Memor ia 7- Same as: l 22:00: Cordaron, [place] 00 Pacerone Lasix No Notes: Memoria 7-31 (Same as: l 19:00: Lasix) [place] 00 24 HR No Notes: Memoria Metoprolol 09-13 (Same as: l Tartrate 25 16:29: Toprol XL) [place] MG Extended 00 Do Not Release Crush Tablet [Toprol] sennosides, No Notes: Derek hoda [facility] 09-13 (Same as: l 14:00: Senokot) [place] 00 Docusate No Notes: Memoria Sodium 100 09-13 (Same as: l MG Oral 14:00: Colace) [place] Capsule 00 (Do Not [Colace] Crush) Miralax No Notes: Memoria 7-31 Dissolve l 13:09: in 8 oz of [place] water or juice. (Same as: Miralax) Dulcolax No Notes: Memoria Laxative 09-13 (Same As: l 13:09: Dulcolax, [place] 00 Bisco-Lax) metoprolol No Notes: Memor ia extended 09-13 (Same as: l release 02:00: Toprol XL) Herm derek 00 May split tab, but do not crush. heparin No Notes: Memoria sodium, 09-13 porcine l porcine 02:00: heparin [place] 2500 UNT/ML 00 Injectable Solution Amiodarone No Notes: Memor ia - Same as: l 00:51: Cordaron, [place] 00 Pacerone Melatonin 3 No Notes: Derek hoda MG Extended 09-13 (Same as: l Release 00:32: Melatonin) Herm derek Tablet 00 Hemorrhoida No 1 appl, Mem oria l Ointment 09-12 Route: l 0.25%-3% 22:00: TOP, BID, Herm derek rectal 00 Start ointment date: 09/12/18 17:00:00 CDT, Duration: 30 day, Stop date: 10/12/18 9:00:00 CDT hydrocortis No Notes: Derek hoda one 25 mg 7-30 (Same as: l rectal 19:20: Anusol-HC, Kimberli nn suppository 00 Hemorrhoid al HC) hydrocortis No Notes: Derek hoda one 2.5% 7-30 (Same as: l rectal 19:20: Anusol-HC, Kimberli nn cream with 00 Proctosol- applicator HC) Albuterol No Notes: Memori a 0.833 MG/ML 7-30 (Same as: l / 19:00: Duoneb) [place] Ipratropium 00 [place] 0.167 MG/ML Inhalant Solution [DuoNeb] Hemorrhoida No Route: VT, Memoria l 0.25% 7-30 Dosing l rectal 18:38: Weight [place] suppository 00 67.273, kg, Daily, NOW, Start date: 09/12/18 13:38:00 CDT, Duration: 30 day, Stop date: 10/12/18 9:00:00 CDT Insulin No Notes: Memoria Lispro 7-30 (Same as: l 14:50: Humalog) [place] 00 Roll in palms of hands gently; Do not shake vigorously . WASTE: F/P - Black; E - Municipal Trash Bin Stable for 28 days at room temperatur e. Expires in days from ____Date Glucagon 2018- No 1 mg, Memoria 7-30 Route: IM, l 14:50: Drug form: [place] 00 PDR/INJ, PRN, Dosing Weight 67.273, kg, PRN Blood Glucose Results, Start date: 09/12/18 9:50:00 CDT, Duration: 30 day, Stop date: 10/12/18 9:49:00 CDT, 0 Dextrose 2018- No 12.5 gm, Memor ia 50% Syringe 7-30 25 mL, l 14:50: Route: [place] 00 IVP, Drug Form: INJ, Dosing Weight 67.273, kg, PRN, PRN Blood Glucose Results, Start date: 09/12/18 9:50:00 CDT, Duration: 30 day, Stop date: 10/12/18 9:49:00 CDT, 0 Milk of No Notes: Memoria Magnesia 30 (Same as: l 14:41: Milk of [place], MOM) Oxycodone No Notes: Memori a Hydrochlori 30 (Same as: l de 5 MG 14:41: Roxicodone Herm derek Oral Tablet 00 ) Prednisone No Notes: Memor ia 09-12 (Same as: l 14:00: PredniSONE [place] ) Take with food. Allantoin No Notes: Memori a 0.01 MG/MG 09-11 Same as: l / Camphor 22:00: Blistex Kimberli nn 0.005 MG/MG 00 / phenol 0.005 MG/MG Topical Ointment [Blistex] phenol 14 No Notes: Memori a MG/ML 09-11 Chlorasept l Mucosal 18:00: ic [place] Devan n [place] (Same as: Chlorasept ic, Sore Throat [place]) WASTE: F/P - Black; E - Municipal Trash Bin vancomycin No 2001 mg: Me moria (SCIP) 09-11 infuse l 17:15: over 2.5 hours For adult patients only: Round to nearest 250 mg per Medical Staff approval MEDICATION WASTE Product Size: 1000 mg Product Wasted: ___ mg Simethicone No Notes: Derek hoda - (Same as: l 17:00: Mylicon) cefepime No Notes: Memoria 09-11 (Same As: l 17:00: Maxipime) MEDICATION WASTE Product Size: 1000 mg Product Wasted: ___ mg Fentanyl No Notes: Memoria - (Same as: l 16:58: Sublimaze) Preservat lei free. Tramadol No Notes: 25 Derek hoda 7-29 mg = 1/2 x l 16:51: 50 mg TAB Not to exceed 400mg/day. (Same As: Ultram) Metoprolol No Notes: Memor ia - (Same as: l 16:49: Lopressor) [place] 00 Push over 2 minutes LR IV 500 No 500 mL, Memor ia mL 09-11 Rate: 999 l 16:39: ml/hr, Infuse over: 0.5 hr, Route: IV, Dosing Weight 67.273 kg, Total Volume: 500, Start date: 09/11/18 11:39:00 CDT, Duration: 1 doses or times, Stop date: 09/11/18 12:08:00 CDT, 1.76, m2, 0 Vancomycin No 2001 mg: Me moria 09-11 infuse l 16:00: over 2.5 [place] hours For adult patients only: Round to nearest 250 mg per Medical Staff approval MEDICATION WASTE Product Size: 1000 mg Product Wasted: ___ mg Metoprolol No Notes: Memor ia 09-11 (Same as: l 15:47: Lopressor) Push over 2 minutes metoprolol No Notes: Memor ia extended 09-11 (Same as: l release 15:45: Toprol XL) Do Not Crush Cefazolin No 1 gm, Memoria 09-11 Route: l 15:04: IVPB, Drug form: INJ, Q8H, Dosing Weight 67.273, kg, Priority: NOW, Start date: 09/11/18 10:04:00 CDT, Duration: 24 hr, Stop date: 09/12/18 8:00:00 CDT, ABX Indication : Surgical Prophylaxi s Solu-Medrol No Notes: Derek hoda 09-11 (Same l 14:00: as:Solu-ME [place] DROL, A-Methapre d) Budesonide No Notes: Memor ia 0.5 MG/ML 09-11 (Same As: l Inhalant 13:00: Pulmicort) Her sauceda Solution 00 Calcium No 500 mL, Memoria Chloride 09-11 500 ml/hr, l 0.0014 08:10: Infuse [place] MEQ/ML / 00 Over: 1 Potassium hr, Route: Chloride IV, 500, 0.004 Drug form: MEQ/ML / INJ, ONCE, Sodium Priority: Chloride STAT, 0.103 Dosing MEQ/ML / Weight Sodium 67.273 kg, Lactate Start 0.028 date: MEQ/ML 09/11/18 Injectable 3:10:00 Solution CDT, Stop date: 09/11/18 3:10:00 CDT, 0 albumin No Notes: Memoria human 25% 09-11 LOT#: l intravenous 04:09: [place] solution 00 ___ Mfg: WASTE: F/P - Red; E -Red (Same as: Albuminar) "blood product derivative " Zofran No Notes: Memoria 09-11 (Same as: l 03:57: Zofran) [place] 00 MEDICATION WASTE Product Size: 4 mg Product Wasted: ___ mg chlorhexidi No Notes: Derek hoda ne 09-11 (Same As: l gluconate 02:00: Peridex) Herm derek 1.2 MG/ML 00 Mouthwash Calcium No 500 mL, Memoria Chloride 09-11 500 ml/hr, l 0.0014 01:55: Infuse [place] MEQ/ML / 00 Over: 1 Potassium hr, Route: Chloride IV, 500, 0.004 Drug form: MEQ/ML / INJ, ONCE, Sodium Priority: Chloride STAT, 0.103 Dosing MEQ/ML / Weight Sodium 67.273 kg, Lactate Start 0.028 date: MEQ/ML 09/10/18 Injectable 20:55:00 Solution CDT, Stop date: 09/10/18 20:55:00 CDT, 0 Calcium No 500 mL, Memoria Chloride 09-11 500 ml/hr, l 0.0014 00:49: Infuse [place] MEQ/ML / 00 Over: 1 Potassium hr, Route: Chloride IV, 500, 0.004 Drug form: MEQ/ML / INJ, ONCE, Sodium Priority: Chloride STAT, 0.103 Dosing MEQ/ML / Weight Sodium 67.273 kg, Lactate Start 0.028 date: MEQ/ML 09/10/18 Injectable 19:49:00 Solution CDT, Stop date: 09/10/18 19:49:00 CDT, 0 potassium No Notes: Memori a phosphate 09-11 (Same as: l 00:23: K [place] 00 Phosphate. ) Do not infuse phosphorou s concurrent ly in the same line as TPN or IVF that contains calcium. For double lumen central lines, phosphorou s may be infused in a separate lumen from TPN. 1 mMol phoshate has 1.47 mEq potassium Infuse over 4 hours potassium No Notes: Memori a phosphate-s 09-11 (Same as: l odium 00:23: Phos-NaK) [place] phosphate 00 Each 1.5 250 mg-280 gm pkt has mg-160 mg 250mg oral powder phosphorou for s. Mix reconstitut w/2.5oz ion water and stir. Magnesium No Notes: Memori a Sulfate 09-11 WASTE: F/P l 00:23: - Sink; E [place] - Municipal Trash Bin Magnesium No Notes: Memori a Oxide 09-11 (Same as: l 00:23: Mag-Ox [place] 00 400) Magnesium oxide [id number] g elemental magnesium Dose=____m g magnesium oxide (___mg elemental magnesium) Calcium No Notes: Memoria Gluconate 09-11 WASTE: F/P l 00:23: - Sink; E [place] - Municipal Trash Bin Calcium No Notes: Memoria Carbonate 09-11 (Same As: l 500 MG 00:23: Tums) [place] Chewable 00 Calcium Tablet Carbonate 500 mg = 200 mg elemental calcium Dose = mg calcium carbonate ( mg elemental calcium) Potassium No Notes: Memori a Chloride 09-11 (Same as: l 00:23: Potassium Chloride) sodium No Notes: Memoria phosphate 09-11 Infuse l 00:23: over 4 [place] 00 hour. Do not infuse phosphorou s concurrent ly in the same line as TPN or IVF that contains calcium. For double lumen central lines, phosphorou s may be infused in a separate lumen from TPN. Lactated No 1,000 mL, Derek hoda Ringers IV 09-11 Rate: 75 l 1,000 mL 00:21: ml/hr, [place] 00 Infuse over: 13.3 hr, Route: IV, Dosing Weight 67.273 kg, Total Volume: 1,000, Start date: 09/10/18 19:21:00 CDT, Duration: 30 day, Stop date: 10/10/18 19:20:00 CDT, 1.76, m2, 0 Sodium No 500 mL, Memoria Chloride 09-11 500 ml/hr, l 0.9% 00:21: Infuse [place] (Bolus) IV 00 Over: 1 hr, Route: IV, 500, Drug form: INJ, ONCE, Priority: STAT, Dosing Weight 67.273 kg, Start date: 09/10/18 19:21:00 CDT, Stop date: 09/10/18 19:21:00 CDT, 0 Tylenol No Notes: Memoria 09-10 Infuse l 23:00: over 15 [place] minutes Do not exceed 4gm/day of acetaminop hen MEDICATION WASTE Product Size: 1000 mg Product Wasted: ___ mg ocular No Notes: Memoria lubricant 09-10 (Same as: l 23:00: Lacri-Lube [place] 00 , Puralube, Duratears Naturale, Artificial Tears, and Tears Again ) Albuterol No Notes: Memori a 0.833 MG/ML 09-10 (Same as: l / 20:00: Duoneb) [place] Ipratropium 00 [place] 0.167 MG/ML Inhalant Solution [DuoNeb] Budesonide No Notes: Memor ia 0.5 MG/ML 09-10 (Same As: l Inhalant 19:02: Pulmicort) Her sauceda Solution 00 Isolyte S No Notes: Memori a PH 7.4 09-10 (Same as: l 1,000 mL 18:55: Isolyte S Herm derek 00 PH 7.4) Fentanyl No Notes: Memoria 09-10 (Same as: l 18:02: Sublimaze) [place] 00 Preservat lei free. Isolyte S No Notes: Memori a PH-7.4 09-10 (Same as: l (Bolus) IV 18:01: Isolyte S He rmann 00 PH 7.4) Insulin No Notes: Memoria regular 100 09-10 Final l unit + 17:50: Concentrat Kimberli nn 00 ion 1unit/1ml WASTE: F/P - Black; E - Municipal Trash Bin Dextrose No 12.5 gm, Memor ia 50% Syringe 09-10 25 mL, l 17:50: Route: [place] 00 IVP, Drug Form: INJ, Dosing Weight 67.273, kg, PRN, PRN Blood Glucose Results, Start date: 09/10/18 12:50:00 CDT, Duration: 30 day, Stop date: 10/10/18 12:49:00 CDT, 0 chlorhexidi No Notes: Derek hoda ne 09-10 (Same As: l gluconate 17:46: Peridex) Herm derek 1.2 MG/ML 00 Mouthwash Dexmedetomi No Notes: Use Memoria dine 09-10 the l 17:45: following [place] 00 cdm for [id number]. protamine No Route: IV, Me moria (ANES) 09-10 Drug form: l 16:36: INJ, ONCE, [place] Stop date: 09/10/18 11:36:00 CDT calcium No Route: IV, Derek hoda gluconate 09-10 Drug form: l (ANES) 16:16: INJ, ONCE, Kimberli nn Stop date: 09/10/18 11:16:00 CDT Sodium No Route: IV, Memor ia Chloride 09-10 Drug form: l 0.9% IV 15:58: INJ, Start Herm derek (ANES) 100 00 date: mL + 09/10/18 dexmedetomi 10:58:00 dine (ANES) CDT, Stop 200 date: microgram 09/10/18 11:58:00 CDT Insulin No Route: IV, Derek hoda regular 09-10 Drug form: l (ANES) 15:40: INJ, ONCE, Kimberli nn Stop date: 09/10/18 10:40:00 CDT sodium No Route: IV, Memor ia bicarbonate 09-10 Drug form: l (ANES) 15:05: INJ, ONCE, Kimberli nn Stop date: 09/10/18 10:05:00 CDT calcium No Route: IV, Derek hoda chloride 09-10 Drug form: l (ANES) 14:59: INJ, ONCE, Kimberli nn Stop date: 09/10/18 9:59:00 CDT heparin 2019-0 No Route: IV, Derek hoda (ANES) 09-10 Drug form: l 14:44: INJ, ONCE, [place] 00 Stop date: 09/10/18 9:44:00 CDT albuterol 2018- No Route: IV, Me moria (ANES) 09-10 Drug form: l 14:29: AERO/A, [place] 00 ONCE, Stop date: 09/10/18 9:29:00 CDT norepinephr 2018- No Route: IV, Memoria ine (ANES) 09-10 Drug form: l 14:24: INJ, ONCE, [place] 00 Stop date: 09/10/18 9:24:00 CDT methylPREDN No Route: IV, Memoria ISolone 09-10 Drug form: l (ANES) 14:19: INJ, ONCE, Kimberli Stop date: 09/10/18 9:19:00 CDT PlasmaLyte No Route: IV, M emoria A PH-7.4 09-10 Total l (ANES) 1000 14:14: Volume: Her sauceda mL 00 1,000, Start date: 09/10/18 9:14:00 CDT, Stop date: 09/10/18 10:14:00 CDT esmolol 2018- No Route: IV, Derek hoda (ANES) 09-10 Drug form: l 14:09: INJ, ONCE, Stop date: 09/10/18 9:09:00 CDT fentaNYL 2019-0 No Route: IV, Mem oria (ANES) 09-10 Drug form: l 14:03: INJ, ONCE, Stop date: 09/10/18 9:03:00 CDT propofol 2019-0 No Route: IV, Mem oria (ANES) 09-10 Drug form: l 14:03: INJ, ONCE, Stop date: 09/10/18 9:03:00 CDT lidocaine 2018-0 No Route: IV, Me moria (ANES) 09-10 Drug form: l 14:03: INJ, ONCE, Stop date: 09/10/18 9:03:00 CDT rocuronium No Route: IV, [place] emoria (ANES) 09-10 Drug form: l 14:03: INJ, ONCE, Stop date: 09/10/18 9:03:00 CDT Protonix No Notes: For Mem oria 09-10 IV push l 14:00: reconstitu te with 10 ml 0.9% sodium chloride and push over 2 minutes. (Same as: Protonix) Amiodarone No Notes: Memor ia 09-10 (Same as: l 14:00: Cordarone) Furosemide No Notes: Memor ia 20 MG Oral 09-10 (Same as: l Tablet 14:00: Lasix) May cause GI upset. Give with food or milk. Brovana No Notes: SEE Derek hoda 09-10 RT l 14:00: DOCUMENTAT ION Same as Brovana Prednisone No Notes: Memor ia 09-10 (Same as: l 14:00: PredniSONE ) Take with food. norepinephr No Route: IV, Memoria ine (ANES) 09-10 Drug form: l 10 13:51: INJ, Start [place] microgram date: 09/10/18 8:51:00 CDT, Stop date: 09/10/18 9:51:00 CDT vancomycin No Route: IV, [place] emoria (ANES) 1000 09-10 Drug form: l mg 13:02: INJ, Start [place] date: 09/10/18 8:02:00 CDT, Stop date: 09/10/18 9:02:00 CDT Sodium No Route: IV, Memor ia Chloride 09-10 Total l 0.9% IV 12:37: Volume: [place] (ANES) 1000 00 1,000, mL Start date: 09/10/18 7:37:00 CDT, Stop date: 09/10/18 8:37:00 CDT Isolyte S No Notes: Memori a PH 7.4 500 09-10 (Same as: l mL 12:07: Isolyte S PH7.4) ipratropium No Notes: SEE Memoria 0.02% - RT l inhalation 12:00: DOCUMENTAT H ermann solution 00 ION (Same as:Atroven t) Hydralazine No Notes: Derek hoda -28 (Same as: l 03:18: Apresoline ) Push over 5 minutes Hydralazine No Notes: Derek hoda 7-28 (Same as: l 02:22: Apresoline ) Push over 5 minutes Nicardipine No Notes: Derek hoda -28 Same as: l 02:21: Cardene [place] 00 Concentrat ion: (0.2 mg /1 ml ) heparin No Notes: Memoria 09-10 porcine l 02:00: heparin [place] 00 metoprolol No Notes: Memor ia extended 09-10 (Same as: l release 01:41: Toprol XL) Herm Do Not Crush Fentanyl No Notes: Memoria 09-10 (Same as: l 01:34: Sublimaze) [place] 00 Preservat lei free. Glucagon No 1 mg, Memoria 09-10 Route: IM, l 01:31: Drug form: [place] 00 PDR/INJ, PRN, Dosing Weight 67.273, kg, PRN Blood Glucose Results, Start date: 09/09/18 20:31:00 CDT, Duration: 30 day, Stop date: 10/09/18 20:30:00 CDT, 0 Insulin No Notes: Memoria Lispro 09-10 (Same as: l 01:31: Humalog) Roll in palms of hands gently; Do not shake vigorously . WASTE: F/P - Black; E - Municipal Trash Bin Stable for 28 days at room temperatur e. Expires in days from ____Date Dextrose No 25 gm, 50 Derek hoda 50% Syringe 7-28 mL, Route: l 01:31: IVP, Drug [place] 00 Form: INJ, Dosing Weight 67.273, kg, PRN, PRN Blood Glucose Results, Start date: 09/09/18 20:31:00 CDT, Duration: 30 day, Stop date: 10/09/18 20:30:00 CDT, 0 Lubricant No Notes: Memori a Eye Drops - (Same as: l 01:17: Lacri-Lube [place] 00 , Puralube, Duratears Naturale, Artificial Tears, and Tears Again ) tiotropium No 18 Memoria 0.018 -28 microgram, l MG/ACTUAT 01:11: 1 cap, Devan n Inhalant 00 Route: Powder INHALATION [Spiriva] , Daily, Dosing Weight 67.273, kg, Priority: NOW, Start date: 09/09/18 20:11:00 CDT, Duration: 30 day, Stop date: 10/09/18 9:00:00 CDT Tylenol No Notes: Do Memor ia - not exceed l 01:06: 4 gm/day. [place] 00 (Same as: Tylenol) Phenergan No Notes: Memori a -28 (Same as: l 01:02: Phenergan) [place] 00 6.25 mg = 1/2 x 12.5 mg TAB Albuterol No Notes: Memori a 0.833 MG/ML - (Same as: l / 00:31: Duoneb) [place] Ipratropium 00 [place] 0.167 MG/ML Inhalant Solution [DuoNeb] Ondansetron No 4 mg = 1 Me moria 4 MG 7-28 tab, PO, l Disintegrat 00:23: TID, PRN He rmann ing Tablet 00 Nausea / Vomiting, Dissolve tab under tongue, # 10 tab, 0 Refill(s) metoprolol No 25 mg = 1 Me moria 25 mg oral 7-28 tab, PO, l tablet, 00:23: BID, # 90 Kimberli nn extended 00 tab, 0 release Refill(s) AMIODarone No 200 mg = 2 M emoria 100 mg oral 7-28 tab, PO, l tablet 00:23: Daily, # [place] 00 60 tab, 0 Refill(s) Isolyte S No Notes: Memori a PH 7.4 - (Same as: l 1,000 mL 23:06: Isolyte S Herm derek 00 PH 7.4) Zofran Zofran Yes Annia [address] [facility]: [facility] Sulfamethox No 1 tab, PO, Memoria azole 800 03-13 BID, X 10 l MG / 20:31: day, # 20 Trimethopri 00 tab, 0 m 160 MG Refill(s) Oral Tablet [Bactrim] Hydralazine No Notes: Derek hoda 03-13 (Same as: l 16:24: Apresoline ) Push over 5 minutes Labetalol No 10 mg, 2 Derek hoda 03-13 mL, Route: l 16:24: IVP, Drug form: INJ, Q5Min, Dosing Weight 66.932, kg, PRN Elevated BP, Start date: 03/13/18 10:24:00 [employer], Duration: 5 doses or times, Stop date: Limited # of times Fentanyl No Notes: Memoria 03-13 (Same as: l 16:24: Sublimaze) Preservat lei free. Flumazenil No Notes: Memor ia 03-13 (Same as: l 16:24: Romazicon) Naloxone No Notes: Memoria 03-13 Same as l 16:24: Narcan Ondansetron No Notes: Derek hoda 03-13 (Same as: l 16:24: Zofran) MEDICATION WASTE Product Size: 4 mg Product Wasted: ___ mg Promethazin No Notes: Do M emoria e 03-13 not give l 16:24: IV push. (Same as: Phenergan) Zofran No Notes: Memoria 03-13 (Same as: l 16:10: Zofran) MEDICATION WASTE Product Size: 4 mg Product Wasted: __0_ mg Acetaminoph No Notes: Do M emoria en 03-13 not exceed l 16:10: 4 gm/day. (Same as: Tylenol) Acetaminoph No Notes: Do M emoria en 325 MG / 03-13 not exceed l Oxycodone 16:10: 4gm/day of He rmderek i 00 acetaminop de 5 MG hen. Oral Tablet (Same as: Percocet-5 /325) normal No 1,000 mL, Memori a saline 0.9% 03-13 Rate: 75 l IV 1,000 mL 16:10: ml/hr, Infuse over: 13.3 hr, Route: IV, Dosing Weight 66.932 kg, Total Volume: 1,000, Start date: 03/13/18 10:10:00 [employer], Duration: 30 day, Stop date: 04/12/18 10:09:00 [employer], 1.76, m2 Insulin No Route: IV, Derek hoda regular 03-13 Drug form: l (ANES) 15:46: INJ, ONCE, Stop date: 03/13/18 9:46:00 [employer] heparin No Route: IV, Derek hoda (ANES) 03-13 Drug form: l 15:26: INJ, ONCE, Stop date: 03/13/18 9:26:00 [employer] diphenhydrA No Route: IV, Memoria MINE (ANES) 03-13 Drug form: l 15:11: INJ, ONCE, Stop date: 03/13/18 9:11:00 [employer] Vitamin C No Notes: Memori a 03-13 (Same as: l 15:00: Vitamin C) Evette-Q 2 No 1 cap, Memori a 03-13 Route: PO, l 15:00: Dosing Weight 66.932, kg, Daily, Start date: 03/13/18 9:00:00 [employer], Duration: 30 day, Stop date: 04/11/18 9:00:00 [employer] Bisoprolol No Notes: Memor ia 03-13 (Same As: l 15:00: Zebeta) Vitamin D3 No Notes: Memor ia 03-13 Same as l 15:00: Vitamin D3 Furosemide No 20 mg, 1 Mem oria 20 MG Oral 03-13 tab, l Tablet 15:00: Route: PO, Kimberli Drug form: TAB, Daily, Dosing Weight 66.932, kg, Start date: 03/13/18 9:00:00 [employer], Duration: 30 day, Stop date: 04/11/18 9:00:00 [employer] Lisinopril No Notes: Memor ia 03-13 (Same as: l 15:00: Prinivil) Amlodipine No Notes: Memor ia 03-13 (Same as: l 15:00: Norvasc) Sertraline No Notes: Memor ia 03-13 (Same as: l 15:00: Zoloft) Triamcinolo No 2 spray, Me moria ne 03-13 Route: l Acetonide 15:00: NASAL, Devan n 0.055 00 Drug Form: MG/ACTUAT SPRY, Metered Dosing Dose Nasal Weight [place] 66.932, kg, Daily, Start date: 03/13/18 9:00:00 [employer], Duration: 30 day, Stop date: 04/11/18 9:00:00 [employer] ubiquinone 0 No Notes: Memor ia 03-13 Same as l 15:00: Co-Enzyme Q10 Vitamin E No 200 Memoria 03-13 IntlUnit, l 15:00: Route: PO, Drug form: TAB, Daily, Dosing Weight 66.932, kg, Start date: 03/13/18 9:00:00 [employer], Duration: 30 day, Stop date: 04/11/18 9:00:00 [employer] Ocuvite 0 No 1 tab, Memoria 03-13 Route: PO, l 15:00: Dosing Weight 66.932, kg, Daily, Start date: 03/13/18 9:00:00 [employer], Duration: 30 day, Stop date: 04/11/18 9:00:00 [employer] Prednisone 0 No Notes: Memor ia 03-13 (Same as: l 15:00: PredniSONE ) Take with food. lidocaine No Route: IV, Me moria (ANES) 03-13 Drug form: l 14:51: INJ, ONCE, Stop date: 03/13/18 8:51:00 [employer] propofol 2018-0 No Route: IV, Mem oria (ANES) 03-13 Drug form: l 14:51: INJ, ONCE, [place] Stop date: 03/13/18 8:51:00 [employer] cisatracuri No Route: IV, Memoria um (ANES) 03-13 Drug form: l 14:51: INJ, ONCE, [place] Stop date: 03/13/18 8:51:00 [employer] ceFAZolin No Route: IV, Me moria (ANES) 03-13 Drug form: l 14:51: INJ, ONCE, [place] 00 Stop date: 03/13/18 8:51:00 [employer] fentaNYL No Route: IV, Mem oria (ANES) 03-13 Drug form: l 14:46: INJ, ONCE, [place] 00 Stop date: 03/13/18 8:46:00 [employer] norepinephr No Route: IV, Memoria ine (ANES) 03-13 Drug form: l 10 14:30: INJ, Start [place] microgram 00 date: 03/13/18 8:30:00 [employer], Stop date: 03/13/18 9:30:00 [employer] vancomycin No Route: IV, M emoria (ANES) 1000 03-13 Drug form: l mg 14:14: INJ, Start [place] 00 date: 03/13/18 8:14:00 [employer], Stop date: 03/13/18 9:14:00 [employer] tiotropium No Notes: Memor ia 0.018 03-13 (Same As: l MG/ACTUAT 14:00: Spiriva) Herm derek Inhalant 00 Powder [Spiriva] Sodium No Route: IV, Memor ia Chloride 03-13 Total l 0.9% IV 13:35: Volume: [place] (ANES) 1000 00 1,000, mL Start date: 03/13/18 7:35:00 [employer], Stop date: 03/13/18 8:35:00 [employer] Zofran No Notes: Memoria 03-13 (Same as: l 10:45: Zofran) [place] MEDICATION WASTE Product Size: 4 mg Product Wasted: ___ mg Metoprolol No Notes: Memor ia 03-13 (Same as: l 08:47: Lopressor) Push over 2 minutes Bisoprolol No Notes: Memor ia 03-13 (Same As: l 06:07: Zebeta) Lovenox No Notes: Memoria 03-13 (Same as: l 00:00: Lovenox) Brovana No Notes: SEE Derek hoda 03-12 RT l 23:00: DOCUMENTAT ION Same as Brovana Fenofibrate No Notes: Derek hoda 145 MG Oral 03-12 (Same as: l Tablet 23:00: Tricor) pneumococca No Notes: Derek hoda l capsular 03-12 (Same as: l polysacchar 22:07: Pneumovax H ermann paul type 1 23) vaccine / Refrigerat pneumococca e l capsular polysacchar paul type 10A vaccine / pneumococca l capsular polysacchar paul type 11A vaccine / pneumococca l capsular polysacchar paul type 12F vaccine / pneumococca l capsular polysacchar Lovenox No 40 mg, Memoria 03-12 Route: l 22:00: SUB-Q, Drug form: INJ, [id number], Dosing Weight 66.932, kg, Start date: 03/12/18 16:00:00 [employer], Duration: 30 day, Stop date: 04/10/18 16:00:00 [employer] Lubricant Yes See Memoria Eye Drops 03-12 Instructio l 21:33: ns, BOTH EYES BID as needed, 0 Refill(s) Nature's No 1,000 mg = Mem oria Bounty Red 03-12 2 cap, PO, l Krill Oil 21:33: BID, 0 Devan n 500 mg oral 00 Refill(s) capsule Dextrose No 12.5 gm, Memor ia 50% Syringe 03-12 25 mL, l 21:25: Route: IVP, Drug Form: INJ, Dosing Weight 66.932, kg, PRN, PRN Blood Glucose Results, Start date: 03/12/18 15:25:00 [employer], Duration: 30 day, Stop date: 04/11/18 15:24:00 [employer] Glucagon No 1 mg, Memoria 03-12 Route: IM, l 21:25: Drug form: [place] PDR/INJ, PRN, Dosing Weight 66.932, kg, PRN Blood Glucose Results, Start date: 03/12/18 15:25:00 [employer]ER, Duration: 30 day, Stop date: 04/11/18 15:24:00 [employer] Insulin No 60 Memoria regular 1-27 units) l 21:25: WASTE: F/P [place] - Black; E - [employer] Trash Bin Stable for 28 days at room temperatur e Expires in days from ____Date Potassium No Notes: Memori a Chloride - (Same as: l 21:25: K-Dur 20) "Do Not Crush" Give with food and full glass of water For patients unable to swallow tablet, dissolve in one half glass of water. Allow about 2 minutes for the tablets to disintegra te. Stir before giving to prepare slurry and administer . Please exclude Patient s with feeding tube less than 14 [place] (Dobhoff, J-tube etc) and pediatric and patients. potassium No Notes: Memori a phosphate-s - (Same as: l odium 21:25: Phos-NaK) phosphate Each 1.5 250 mg-280 gm pkt has mg-160 mg 250mg oral powder phosphorou for s. Mix reconstitut w/2.5oz ion water and stir. potassium No Notes: Memori a phosphate 1-27 (Same as: l 21:25: K [place] Phosphate. ) Do not infuse phosphorou s concurrent ly in the same line as TPN or IVF that contains calcium. For double lumen central lines, phosphorou s may be infused in a separate lumen from TPN. 1 mMol phoshate has 1.47 mEq potassium Infuse over 4 hours sodium 2019 No Notes: Memoria phosphate 1-27 Infuse l 21:25: over 4 [place] 00 hour. Do not infuse phosphorou s concurrent ly in the same line as TPN or IVF that contains calcium. For double lumen central lines, phosphorou s may be infused in a separate lumen from TPN. Magnesium No Notes: Memori a Sulfate 03-12 WASTE: F/P l 21:25: - Sink; E [place] 00 - Municipal Trash Bin Magnesium No Notes: Memori a Oxide 03-12 (Same as: l 21:25: Mag-Ox [place] 00 400) Magnesium oxide [id number] g elemental magnesium Dose=____m g magnesium oxide (___mg elemental magnesium) Calcium No Notes: Memoria Gluconate 03-12 WASTE: F/P l 21:25: - Sink; E [place] - Municipal Trash Bin albuterol No Notes: Memori a 90 mcg/inh 03-12 Albuterol l inhalation 21:20: 90 [place] aerosol 00 microgram/ inh 8gm HFA WASTE: Aerosol - Return to Pharmacy Same as: Tina Love Isolyte S No Notes: Memori a PH 7.4 03-12 (Same as: l 1,000 mL 21:19: Isolyte S Herm derek PH 7.4) lisinopril Yes 2.5 mg = 1 M emoria 2.5 mg oral 09-22 tab, PO, l tablet 17:20: Daily, # [place] 00 30 tab, 0 Refill(s) amLODIPine Yes 2.5 mg = 1 M emoria 2.5 mg oral 09-22 tab, PO, l tablet 17:03: Daily, # [place] 00 30 tab, 0 Refill(s) Sulfamethox No 1 tab, PO, Memoria azole 800 09-22 [id number], X l MG / 17:03: 14 day, # [place] Trimethopri 00 28 tab, 0 m 160 MG Refill(s) Oral Tablet [Bactrim] Insulin No Notes: Memoria Glargine 09-22 Same as: l 100 UNT/ML 14:00: Lantus) Do H ermann Injectable 00 not hold Solution insulin [Lantus] without contacting prescriber WASTE: F/P - Black; E - Municipal Trash Bin Sulfamethox No Notes: One Memoria azole 800 09-22 DS tablet l MG / 14:00: = [place] Trimethopri 00 trimethopr m 160 MG im 160mg + Oral Tablet sulfametho [Bactrim] xazole 800 mg Dose based on trimethopr im component On empty stomach with a glass of water. (Same As: Bactrim DS, Septra DS) NS (Bolus) No 500 mL, Derek hoda IV 09-21 166.67 l 15:13: ml/hr, Watson 00 Infuse Over: 3 hr, Route: IV, 500, Drug form: INJ, ONCE, Priority: STAT, Dosing Weight 73.182 kg, Start date: 09/21/17 10:13:00 CDT, Stop date: 09/21/17 10:13:00 CDT Norvasc No Notes: Memoria 09-21 (Same as: l 14:00: Norvasc) [place] Sodium No Notes: SEE Memor ia Chloride, 09-21 RT l Inhalation 13:31: DOCUMENTAT H ermann 3% solution 00 ION (Same as: Hypertonic Saline 3%, Inhalation ) Sertraline No Notes: Memor ia 09-21 (Same as: l 05:04: Zoloft) Bisacodyl No Notes: Memori a 09-20 (Same As: l 14:00: Dulcolax, [place] 00 Correctol) (Do Not Crush) Milk of No Notes: Memoria Magnesia 09-20 (Same as: l 14:00: Milk of Magnesia, MOM) Insulin No Notes: Memoria Glargine 09-19 Same as: l 100 UNT/ML 02:00: Lantus) Do H ermann Injectable 00 not hold Solution insulin [Lantus] without contacting prescriber WASTE: F/P - Black; E - Municipal Trash Bin Insulin No Notes: Memoria Lispro 09-18 (Same as: l 22:46: Humalog ) [place] 00 Roll in palms of hands gently; Do not shake `vigorousl y. "Single Patient Use Only " WASTE: F/P - Black; E - Municipal Trash Bin Stable for 28 days at room temperatur e. Expires in days from ____Date Dextrose No 25 gm, 50 Derek hoda 50% Syringe 8-05 mL, Route: l 22:46: IVP, Drug [place] 00 Form: INJ, Dosing Weight 73.182, kg, PRN, PRN Blood Glucose Results, Start date: 09/18/17 17:46:00 CDT, Duration: 30 day, Stop date: 10/18/17 17:45:00 CDT Glucagon No 1 mg, [facility] 8-05 Route: IM, l 22:46: Drug form: [place] 00 PDR/INJ, PRN, Dosing Weight 73.182, kg, PRN Blood Glucose Results, Start date: 09/18/17 17:46:00 CDT, Duration: 30 day, Stop date: 10/18/17 17:45:00 CDT Docusate No Notes: [facility] Sodium 100 8-05 (Same as: l MG Oral 22:00: Colace) [place] Capsule 00 (Do Not [Colace] Crush) sennosides, No Notes: Derek hoda [facility] 8-05 (Same as: l 20:30: Senokot) [place] 00 Ceftriaxone No Notes: Derek hoda 8-04 (Same As: l 16:00: Rocephin). [place] 00 Use with 100 mL NS and infuse over 30 min MEDICATION WASTE Product Size: 1000 mg Product Wasted: ___ mg heparin No Notes: [facility] 8-04 porcine l 13:00: heparin [place] Magnesium No Notes: Memori a Sulfate 09-17 WASTE: F/P l 00:00: - Sink; E [place] - [facility] Trash [facility] Magnesium No Notes: Memori a Oxide -04 (Same as: l 00:00: Mag-Ox [place] 00 400) Magnesium oxide 022un=189b g elemental magnesium Dose=____m g magnesium oxide (___mg elemental magnesium) potassium No Notes: Memori a phosphate 8-04 (Same as: l 00:00: K [place] 00 Phosphate. ) 1 mMol phoshate has 1.47 mEq potassium Infuse over 4 hours sodium No 15 mmol, 5 Memor ia phosphate 8-04 mL, Route: l 00:00: IVPB, PRN, [place] 00 Dosing Weight 73.182, kg, PRN Abnormal Lab Result, For NON-ICU Patients Only., Start date: 09/16/17 19:00:00 CDT, Duration: 30 day, Stop date: 10/16/17 18:59:00 CDT potassium No Notes: Memori a phosphate-s 09-17 (Same as: l odium 00:00: Phos-NaK) [place] phosphate 00 Each 1.5 250 mg-280 gm pkt has mg-160 mg 250mg oral powder phosphorou for s. Mix reconstitut w/2.5oz ion water and stir. Potassium No Notes: Memori a Chloride 09-17 (Same as: l 00:00: K-Dur 20) [place] 00 "Do Not Crush" For patients unable to swallow tablet, dissolve in one half glass of water. Allow about 2 minutes for the tablets to disintegra te. Stir before giving to prepare slurry and administer . Please exclude Patient s with feeding tube less than 14 [place] (Dobhoff, J-tube etc) and pediatric and patients. With food and full glass of water Calcium No Notes: Memoria Gluconate 09-17 WASTE: F/P l 00:00: - Sink; E [place] - Municipal Trash Bin Furosemide No Notes: Memor ia 20 MG Oral 09-16 (Same as: l Tablet 14:30: Lasix) [place] [Lasix] 00 May cause GI upset. Give with food or milk. Albuterol No Notes: Memori a 0.833 MG/ML 09-16 (Same as: l / 05:00: Duoneb) [place] Ipratropium 00 [place] 0.167 MG/ML Inhalant Solution [DuoNeb] cefepime No Notes: Memoria - (Same As: l 23:06: Maxipime) [place] MEDICATION WASTE Product Size: 1000 mg Product Wasted: ___ mg Albuterol No Notes: Memori a 0.833 MG/ML 09-15 (Same as: l / 23:06: Duoneb) [place] Ipratropium 00 [place] 0.167 MG/ML Inhalant Solution [DuoNeb] Pyridium No Notes: Memoria 09-15 Give with l 22:11: meals. (Same as: Pyridium) Fenofibrate No Notes: Derek hoda 145 MG Oral 09-15 (Same as: l Tablet 22:00: Tricor) Protonix No Notes: Memoria 09-15 Tablet l 21:30: should not be chewed or crushed. (Same as: Protonix) fluticasone No Notes: Derek hoda nasal 09-15 (Same as: l 15:00: Flonase) Bisoprolol No Notes: Memor ia 09-15 (Same As: l 14:00: Zebeta) lactobacill No 1 tab, Derek hoda us 09-15 Route: PO, l acidophilus 14:00: Drug Form: TAB, Dosing Weight 73.182, kg, Daily, Start date: 09/15/17 9:00:00 CDT, Duration: 30 day, Stop date: 10/14/17 9:00:00 CDT Vitamin E No 400 Memoria 09-15 IntlUnit, l 14:00: 1 cap, Route: PO, Drug form: CAP, Daily, Dosing Weight 73.182, kg, Start date: 09/15/17 9:00:00 CDT, Duration: 30 day, Stop date: 10/14/17 9:00:00 CDT Vitamin C No Notes: Memori a 09-15 (Same as: l 14:00: Vitamin C) ubiquinone No Notes: Memor ia 09-15 Same as l 14:00: Co-Enzyme Q10 Triamcinolo No 2 spray, Me moria ne 09-15 Route: l Acetonide 14:00: NASAL, Devan silverman 0.055 00 Drug Form: MG/ACTUAT SPRY, Metered Dosing Dose Nasal Weight [place] 73.182, kg, Daily, Start date: 09/15/17 9:00:00 CDT, Duration: 30 day, Stop date: 10/14/17 9:00:00 CDT tiotropium No Notes: Memor ia 0.018 8-02 (Same As: l MG/ACTUAT 14:00: Spiriva) Herm derek Inhalant 00 Powder [Spiriva] Prednisone No Notes: Memor ia 09-15 (Same as: l 14:00: PredniSONE [place] 00 ) Take with food. Sertraline No Notes: Memor ia 09-15 (Same as: l 14:00: Zoloft) [place] 00 Fish Oil No Notes: Memoria 09-15 (Same as: l 14:00: MaxEPA, [place] 00 [place] 3 fish oil ) Non-Formul naima Drug Ocuvite No Notes: Memoria 09-15 (Same l 14:00: as:Thera-M [place] , Theragran- M) WASTE: F/P - Black; E - Municipal Trash Bin Give with food. mometasone No 100 Memoria furoate 09-15 microgram, l 0.05 14:00: 2 spray, [place] MG/ACTUAT 00 Route: Metered NASAL, Dose Nasal Daily, [place] Drug form: [Nasonex] SPRY, Start date: 09/15/17 9:00:00 CDT, Duration: 30 day, Stop date: 10/14/17 9:00:00 CDT Vitamin D3 No Notes: Memor ia 09-15 Same as l 14:00: Vitamin D3 [place] 00 lactobacill No Notes: Derek hoda us 09-15 Same as l rhamnosus 14:00: Culturelle rmann GG 00 Brovana No Notes: SEE Derek hoda 09-15 RT l 13:42: DOCUMENTAT [place] 00 ION Same as Brovana 200 ACTUAT No Notes: Memor ia Albuterol 09-15 Albuterol l 0.09 13:24: 90 [place] MG/ACTUAT 00 microgram/ Metered inh 8gm Dose HFA Inhaler WASTE: [ProAir Aerosol - HFA] Return to Pharmacy Same as: Ventolin, Proventil Hydralazine No Notes: Derek hoda 09-15 (Same as: l 13:15: Apresoline [place] 00 ) Push over 5 minutes Ipratropium No Notes: SEE Memoria 09-15 RT l 13:15: DOCUMENTAT ION (Same as:Atroven t) Metoprolol No Notes: Memor ia 09-15 (Same as: l 13:15: Lopressor) Push over 2 minutes Zofran No Notes: Memoria 09-15 (Same as: l 13:15: Zofran) MEDICATION WASTE Product Size: 4 mg Product Wasted: __0_ mg Tylenol No Notes: Do Memor ia 09-15 not exceed l 13:15: 4 gm/day. (Same as: Tylenol) Insulin No Notes: Memoria Lispro 09-15 (Same as: l 13:15: Humalog ) Roll in palms of hands gently; Do not shake `vigorousl y. "Single Patient Use Only " WASTE: F/P - Black; E - Municipal Trash Bin Stable for 28 days at room temperatur e. Expires in days from ____Date Glucagon No 1 mg, Memoria 09-15 Route: IM, l 13:15: Drug form: PDR/INJ, PRN, Dosing Weight 73.182, kg, PRN Blood Glucose Results, Start date: 09/15/17 8:15:00 CDT, Duration: 30 day, Stop date: 10/15/17 8:14:00 CDT Dextrose No 12.5 gm, Memor ia 50% Syringe 09-15 25 mL, l 13:15: Route: IVP, Drug Form: INJ, Dosing Weight 73.182, kg, PRN, PRN Blood Glucose Results, Start date: 09/15/17 8:15:00 CDT, Duration: 30 day, Stop date: 10/15/17 8:14:00 CDT Hydralazine No Notes: Derek hoda 09-15 (Same as: l 11:11: Apresoline ) Push over 5 minutes sodium No 45 mmol, Memoria phosphate 09-15 15 mL, l 11:10: Route: IVPB, PRN, Dosing Weight 73.182, kg, PRN Abnormal Lab Result, Start date: 09/15/17 6:10:00 CDT, Duration: 30 day, Stop date: 10/15/17 6:09:00 CDT, FOR ICU USE ONLY Potassium No Notes: Memori a Chloride 09-15 (Same as: l 11:10: K-Dur 20) [place] 00 "Do Not Crush" For patients unable to swallow tablet, dissolve in one half glass of water. Allow about 2 minutes for the tablets to disintegra te. Stir before giving to prepare slurry and administer . Please exclude Patient s with feeding tube less than 14 [place] (Dobhoff, J-tube etc) and pediatric and patients. With food and full glass of water Calcium No Notes: Memoria Carbonate 09-15 (Same As: l 500 MG 11:10: Tums) [place] Chewable 00 Calcium Tablet Carbonate 500 mg = 200 mg elemental calcium Dose = mg calcium carbonate ( mg elemental calcium) Calcium No Notes: Mem[facility] Gluconate 09-15 WASTE: F/P l 11:10: - Sink; E - Municipal Trash Bin Magnesium No Notes: Memori a Sulfate 09-15 WASTE: F/P l 11:10: - Sink; E - Municipal Trash Bin potassium No Notes: Memori a phosphate 09-15 (Same as: l 11:10: K Phosphate. ) 1 mMol phoshate has 1.47 mEq potassium Infuse over 4 hours potassium No Notes: Memori a phosphate-s 09-15 (Same as: l odium 11:10: Phos-NaK) phosphate 00 Each 1.5 250 mg-280 gm pkt has mg-160 mg 250mg oral powder phosphorou for s. Mix reconstitut w/2.5oz ion water and stir. Magnesium No Notes: Memori a Oxide 09-15 (Same as: l 11:10: Mag-Ox 400) Magnesium oxide 258fu=225n g elemental magnesium Dose=____m g magnesium oxide (___mg elemental magnesium) Saline No Notes: Memoria Flush 0.9% 09-15 (Same as: l 11:04: BD Posiflush) Lactated No 1,000 mL, Derek hoda Ringers IV 09-15 Rate: 75 l 1,000 mL 11:04: ml/hr, Infuse over: 13.3 hr, Route: IV, Dosing Weight 73.182 kg, Total Volume: 1,000, Start date: 09/15/17 6:04:00 CDT, Duration: 30 day, Stop date: 10/15/17 6:03:00 CDT, 1.83, m2 Hydralazine No 10 mg, Derek hoda 09-15 Route: IV, l 10:53: ONCE, Dosing Weight 73.182, kg, Start date: 09/15/17 5:53:00 CDT, Stop date: 09/15/17 5:53:00 CDT Sertraline Yes 50 mg, PO, M emoria 09-15 Daily, 0 l 10:42: Refill(s) bisoprolol Yes 5 mg = 1 Mem oria 5 mg oral 09-15 tab, PO, l tablet 10:42: Daily, # [place] 00 30 tab, 0 Refill(s) Humalog Mix Yes See Memori a 75/25 09-15 Instructio l 10:42: ns, SUB-Q., 0 Refill(s) Nasacort Yes 2 spray, Memor ia Allergy 09-15 NASAL, l 24HR 10:42: Daily, 0 Refill(s) Ocuvite Yes 1 tab, PO, Derek hoda 09-15 Daily, 0 l 10:42: Refill(s) ProAir HFA Yes 1 - 2 Memori a 09-15 puffs, PO, l 10:42: Q4H, PRN Wheezing / cough / shortness of breath, # 1 ea, 0 Refill(s) Vitamin C Yes 200, Memoria 09-15 Daily, 0 l 10:42: Refill(s) bisoprolol Yes 5 mg = 1 Mem oria 5 mg oral 6-21 tab, PO, l tablet 17:28: Daily, # [place] 00 30 tab, 0 Refill(s) 12 HR Yes 500 mg = 1 Memori a ranolazine 6-21 tab, PO, l 500 MG 17:07: BID, # 30 Devan n Extended 00 tab, 0 Release Refill(s) Tablet pantoprazol Yes 40 mg = 1 M emoria e 40 mg 6-21 tab, PO, l oral 17:01: Daily, # [place] enteric 00 30 tab, 0 coated Refill(s) tablet Insulin Yes 25 unit, Memori a Glargine 6-21 SUB-Q, l 100 UNT/ML 17:01: QAM, # 10 He rmann Injectable 00 mL, 3 Solution Refill(s) [Lantus] Metformin Yes 500 mg = 1 Me moria hydrochlori 6-21 tab, PO, l de 500 MG 17:01: BID-Meals, He rmann Oral Tablet 00 # 60 tab, 0 Refill(s) acetaminoph Yes 100.4 F, M emoria en 325 mg 6-21 # 50 tab, l oral tablet 17:01: 0 Devan n 00 Refill(s) Zofran No Notes: Memoria 6-18 (Same as: l 14:14: Zofran) [place] 00 MEDICATION WASTE Product Size: 4 mg Product Wasted: __0_ mg sodium No 15 mmol, 5 Memor ia phosphate + 6-18 mL, Route: l Sodium 12:27: IVPB, [place] Chloride 00 ONCE, 0.9% IV 250 Dosing mL Weight 74.29, kg, Start date: 08/01/14 7:27:00, Stop date: 08/01/14 7:27:00 Insulin, No Notes: Memoria Aspart, 6-17 Roll in l Human 21:30: palms of [place] 00 hands gently; Do not shake vigorously . (Same as: NovoLOG) "single patient use only" Stable for 28 days at room temperatur e. Expires in days from ____Date Insulin, No Notes: Memoria Aspart, 6-17 Roll in l Human 19:09: palms of [place] 00 hands gently; Do not shake vigorously . (Same as: NovoLOG) "single patient use only" Stable for 28 days at room temperatur e. Expires in days from ____Date Insulin No Notes: Memoria Glargine -17 Same as l 19:09: Lantus [place] 00 Solostar PEN Do not hold insulin without contacting prescriber "single patient use only" Stable for 28 days at room temperatur e. Expires in days from ____Date Insulin, No Notes: Memoria Aspart 07-31 (Same as: l Protamine, 16:48: NovoLOG Herm derek Human 70 00 Mix 7030) UNT/ML / Insulin, Aspart, Human 30 UNT/ML Injectable Suspension NS 1,000 mL No 1,000 mL, M emoria 07-31 Rate: 30 l 14:02: ml/hr, [place] 00 Infuse over: 33.3 hr, Route: IV, Dosing Weight 74.29 kg, Total Volume: 1,000, Start date: 07/31/14 9:02:00, Stop date: 08/30/14 9:01:00 NovoLOG No Notes: Memoria 70/30 -17 (Same as: l 13:00: NovoLOG [place] 00 Mix 70/30) Calcium No 3 gm, 30 Memori a Gluconate 6-17 mL, Route: l 11:15: IVPB, PRN, [place] 00 Dosing Weight 74.29, kg, PRN Abnormal Lab Result, For NON-ICU Patients Only., Start date: 07/31/14 6:15:00, Duration: 30 day, Stop date: 08/30/14 6:14:00 sodium No 30 mmol, Memoria phosphate + 6-17 10 mL, l Sodium 11:15: Route: [place] Chloride 00 IVPB, PRN, 0.9% IV 250 Dosing mL Weight 74.29, kg, PRN Abnormal Lab Result, For NON-ICU Patients Only., Start date: 07/31/14 6:15:00, Duration: 30 day, Stop date: 08/30/14 6:14:00 Magnesium No 1 gm, 100 Mem oria Sulfate 6-17 mL, Route: l 11:15: IVPB, Drug [place] 00 form: INJ, PRN, Dosing Weight 74.29, kg, PRN Abnormal Lab Result, For NON-ICU Patients Only., Start date: 07/31/14 6:15:00, Duration: 30 day, Stop date: 08/30/14 6:14:00 Magnesium No Notes: Memori a Oxide 6-17 (Same as: l 11:15: Mag-Ox [place] 00 400) Magnesium oxide 123jn=933b g elemental magnesium Dose=____m g magnesium oxide (___mg elemental magnesium) potassium No Notes: Memori a phosphate-s 6-17 (Same as: l odium 11:15: Neutra-Tamara Devan n phosphate 00 s) Each 250 mg-278 1.25 gm mg-164 mg pkt has oral powder 250mg phosphorou s. Mix w/2.5oz water and stir. potassium No Notes: Memori a phosphate + 6-17 (Same as: l Sodium 11:15: K [place] Chloride 00 Phosphate. 0.9% IV 250 ) 1 mMol mL phoshate has 1.47 mEq potassium Infuse over 4 hours potassium No Notes: Memori a chloride 6-17 (Same as: l 11:15: K-Dur 20) [place] 00 "Do Not Crush" With food and full glass of water ketOROLAC No 4 days. Derek hoda 15 mg/mL -17 l injectable 09:06: [place] solution 00 remove No Notes: Memoria patch 6-17 Remove l 04:00: from 11 pm [place] 00 to 9 am daily for 10 hour nitrate free period. (Verify Patient has not taken Viagra, Cialis or Levitra in last 24 hours; if taken, hold NTG and notify MDBryan) D5W 1/2NS No 1,000 mL, Mem oria 1,000 mL 07-30 Rate: 60 l 23:10: ml/hr, [place] 00 Infuse over: 16.7 hr, Route: IV, Dosing Weight 74.29 kg, Total Volume: 1,000, Start date: 07/30/14 18:10:00, Duration: 30 day, Stop date: 08/29/14 18:09:00 Ondansetron No Notes: Derek hoda 0.8 MG/ML 6-16 (Same as: l Oral 23:08: Zofran) [place] Solution 00 [Zofran] MEDICATION WASTE Product Size: 4 mg Product Wasted: _0_ mg Ondansetron No Notes: Derek hoda 0.8 MG/ML 6-16 (Same as: l Oral 22:42: Zofran) [place] Solution 00 [Zofran] Flumazenil No Notes: Memor ia 6-16 (Same as: l 17:53: Romazicon) [place] 00 Hydromorpho No Notes: Derek hoda ne 6-16 Same as: l 17:53: Dilaudid [place] 00 Naloxone No Notes: Memoria 6-16 Same as l 17:53: Narcan [place] 00 Promethazin No Notes: Do M emoria e 6-16 not give l 17:53: IV push. [place] 00 (Same as: Phenergan) Ondansetron No Notes: Derek hoda 6-16 (Same as: l 17:53: Zofran) [place] 00 MEDICATION WASTE Product Size: 4 mg Product Wasted: ___ mg Vancomycin No 1.5 gm, Derek hoda 6.67 MG/ML 07-30 Route: l Injectable 14:17: IVPB, Drug H ermann Solution form: INJ, ONCE, Dosing Weight 74.29, kg, Start date: 07/30/14 9:17:00, Stop date: 07/30/14 9:17:00 Bisoprolol No Notes: Memor ia 6-16 (Same As: l 14:00: Zebeta) [place] 00 24 HR No Notes: Memoria Nitroglycer 6-16 Apply only l in 0.2 14:00: once for [place] MG/HR 00 up to 12 Transdermal hours in a Patch 24 hour period (12 hours on and 12 hours off.) (Same as:Nitro-D ur,Deponit ,Transderm Nitro) For topical use only. "Remove old patch before applicatio n of new patch" Prednisone No Notes: Memor ia -16 Take with l 14:00: food. Dextrose No 12.5 gm, Memor ia 50% Syringe 07-30 Route: l 12:19: IVP, [place] 00 Dosing Weight 74.29, kg, ONCE, Start date: 07/30/14 7:19:00, Stop date: 07/30/14 7:19:00 Zofran No Notes: Memoria -16 (Same as: l 11:59: Zofran) MEDICATION WASTE Product Size: 4 mg Product Wasted: ___ mg PlasmaLyte No 1,000 mL, Me moria A PH-7.4 07-30 Rate: 50 l 1,000 mL 05:00: ml/hr, Infuse over: 20 hr, Route: IV, Dosing Weight 74.29 kg, Total Volume: 1,000, Start date: 07/30/14 0:00:00, Duration: 30 day, Stop date: 08/28/14 23:59:00 Acetylcyste No 600 mg, 3 M emoria ine 200 -16 mL, Route: l MG/ML 02:00: PO, Drug Inhalant 00 form: Solution SOLN, Q12H, Dosing Weight 74.29, kg, give 6 doses, Start date: 07/29/14 21:00:00, Duration: 6 doses or times, Stop date: 08/01/14 9:00:00 NS 1,000 mL No 1,000 mL, M emoria 07-30 Rate: 60 l 01:27: ml/hr, Infuse over: 16.7 hr, Route: IV, Dosing Weight 74.29 kg, Total Volume: 1,000, Start date: 07/29/14 20:27:00, Duration: 30 day, Stop date: 08/28/14 20:26:00 Ranexa No Notes: Memoria 6-15 Same as l 22:00: Ranexa "Do Not Crush" Protonix No Notes: Memoria 6-15 Tablet l 14:00: should not [place] 00 be chewed or crushed. (Same as: Protonix) fluticasone No Notes: Derek hoda nasal 0.05 6-14 (Same as: l mg/inh 14:00: Flonase) [place] spray 00 Prednisone No Notes: Memor ia 6-14 (Same as: l 14:00: PredniSONE [place] 00 ) Take with food. 120 ACTUAT No 100 Memoria mometasone 6-14 microgram, l furoate 14:00: 2 spray, Devan n 0.05 00 Route: MG/ACTUAT NASAL, Nasal Daily, Inhaler Drug form: [Nasonex] SPRY, Start date: 07/28/14 9:00:00, Duration: 30 day, Stop date: 08/26/14 9:00:00 Fish Oil No Notes: Memoria 6-14 (Same as: l 14:00: MaxEPA, [place] 00 Hagerman 3 fish oil ) Non-Formul naima Drug Potassium No Notes: Memori a Chloride 10 -14 (Same as: l MEQ 14:00: K-Dur 10) [place] Extended 00 "Do Not Release Crush" Tablet With food and full glass of water tiotropium No Notes: Memor ia 0.018 6-14 (Same As: l MG/ACTUAT 14:00: Spiriva). Her sauceda Inhalant 00 Powder [Spiriva] Loratadine No Notes: 1 Mem oria 6-14 hr before l 14:00: meals [place] 00 (Same as: Claritin) Furosemide No Notes: Memor ia 20 MG Oral -14 (Same as: l Tablet 14:00: Lasix) [place] 00 May cause GI upset. Give with food or milk. Coreg CR No 40 mg, Memoria 6-14 Route: PO, l 14:00: QAM, [place] 00 Dosing Weight 74.29, kg, Start date: 07/28/14 9:00:00, Duration: 30 day, Stop date: 08/26/14 9:00:00 NovoLOG No Notes: Memoria 70/30 6-14 (Same as: l 13:00: NovoLOG [place] 00 Mix 70/30) Albuterol No 3 ml, Memoria 0.833 MG/ML 6-14 Route: l / 04:00: NEB, [place] Ipratropium 00 Dosing [place] Weight 0.167 MG/ML 74.29, kg, Inhalant RQ8H, Solution Start date: 07/27/14 23:00:00, Duration: 30 day, Stop date: 08/26/14 15:00:00 Xopenex No Notes: SEE Derek hoda 6-14 RT l 04:00: DOCUMENTAT [place] 00 ION (Same as:Xopenex ) Non-Formul naima Insulin, No Notes: Memoria Aspart, 6-14 Roll in l Human 03:50: palms of [place] 00 hands gently; Do not shake vigorously . (Same as: NovoLOG) "single patient use only" Stable for 28 days at room temperatur e. Expires in days from ____Date Glucagon No 1 mg, Memoria 6-14 Route: IM, l 03:50: Drug form: [place] 00 PDR/INJ, PRN, Dosing Weight 74.29, kg, PRN Blood Glucose Results, Start date: 07/27/14 22:50:00, Duration: 30 day, Stop date: 08/26/14 22:49:00 Dextrose No 25 gm, 50 Derek hoda 50% Syringe 6-14 mL, Route: l 03:50: IVP, Drug [place] 00 Form: INJ, Dosing Weight 74.29, kg, PRN, PRN Blood Glucose Results, Start date: 07/27/14 22:50:00, Duration: 30 day, Stop date: 08/26/14 22:49:00 Insulin, No Notes: Memoria Aspart, 6-14 Roll in l Human 02:27: palms of [place] 00 hands gently; Do not shake vigorously . (Same as: NovoLOG) "single patient use only" Stable for 28 days at room temperatur e. Expires in days from ____Date Xopenex No Notes: SEE Derek hoda 6-13 RT l 23:23: DOCUMENTAT [place] 00 ION (Same as:Xopenex ) Non-Formul naima Coreg No Notes: Memoria 6-13 Give with l 22:00: food. [place] 00 (Same As: Coreg) Brovana No 15 Memoria 6-13 microgram, l 22:00: Route: [place] 00 NEB, Drug form: SOLN, BID, Dosing Weight 74.29, kg, Start date: 07/27/14 17:00:00, Duration: 30 day, Stop date: 08/26/14 9:00:00 Fenofibrate No Notes: Derek hoda 145 MG Oral 6-13 (Same as: l Tablet 22:00: Tricor) Docusate No Notes: Memoria 6-13 (Same as: l 22:00: Colace) (Do Not Crush) Insulin, No Notes: Memoria Aspart, 6-13 Roll in l Human 20:29: palms of hands gently; Do not shake vigorously . (Same as: NovoLOG) "single patient use only" Stable for 28 days at room temperatur e. Expires in days from ____Date Dextrose No 25 gm, 50 Derek hoda 50% Syringe 6-13 mL, Route: l 20:29: IVP, Drug Form: INJ, Dosing Weight 74.29, kg, PRN, PRN Blood Glucose Results, Start date: 07/27/14 15:29:00, Duration: 30 day, Stop date: 08/26/14 15:28:00 Glucagon No 1 mg, Memoria 6-13 Route: IM, l 20:29: Drug form: PDR/INJ, PRN, Dosing Weight 74.29, kg, PRN Blood Glucose Results, Start date: 07/27/14 15:29:00, Duration: 30 day, Stop date: 08/26/14 15:28:00 Hydralazine No Notes: Derek hoda 6-13 (Same as: l 20:03: Apresoline ) Push over 5 minutes Enoxaparin No Notes: Memor ia 6-13 (Same as: l 20:00: Lovenox) Acetaminoph No Notes: Do M emoria en 07-27 not exceed l 19:52: 4 gm/day. (Same as: Tylenol) Ondansetron No Notes: Derek hoda 07-27 (Same as: l 19:52: Zofran) MEDICATION WASTE Product Size: 4 mg Product Wasted: ___ mg arformotero Yes = 1 ea, Mem oria l 0.0075 07-27 NEB, BID, l MG/ML 19:46: # 60 ea, 0 Devan n Inhalant 00 Refill(s) Solution [Brovana] predniSONE Yes 10 mg = 1 Me moria 10 mg oral 6-13 tab, PO, l tablet 19:46: Daily, # 7 Kimberli nn 00 tab, 0 Refill(s) Furosemide Yes 20 mg = 1 Me moria 20 MG Oral 6-13 tab, PO, l Tablet 19:46: Daily, # [place] 00 30 tab, 0 Refill(s) glimepiride Yes 4 mg, PO, M emoria 07-27 BID, 0 l 19:46: Refill(s) [place] 00 120 ACTUAT Yes Special Derek hoda mometasone 07-27 Instructio l furoate 19:46: ns: In [place] 0.05 00 each MG/ACTUAT nostril Nasal Inhaler [Nasonex] loratadine Yes 10 mg = 1 Me moria 10 mg oral -13 cap, PO, l capsule 19:46: Daily, # Devan n 00 10 cap, 0 Refill(s) Fenofibrate Yes 145 mg = 1 Memoria 145 MG Oral 6-13 tab, PO, l Tablet 19:46: Dinner, # Devan n 00 30 tab, 0 Refill(s) Coreg CR No 40 mg, PO, Mem oria 07-27 QAM, 0 l 19:46: Refill(s) [place] 00 NovoLOG No 36, SUB-Q, Derek hoda 70/30 07-27 Breakfast, l 19:46: 0 [place] 00 Refill(s) potassium Yes 10 mEq = 1 Me moria chloride 10 - cap, PO, l mEq oral 19:46: Daily, # Kimberli nn capsule, 00 30 cap, 1 extended Refill(s) release tiotropium Yes Special Derek hoda 0.018 07-27 Instructio l MG/ACTUAT 19:46: ns: Use Kimberli nn Inhalant 00 two Powder inhalation [Spiriva] s of one capsule for each dose Probiotic Yes 1 cap, PO, Me moria Formula - Daily, 0 l oral 19:46: Refill(s) [place] capsule 00 Co Q-10 100 Yes 100 mg = 1 Memoria mg oral 07-27 cap, PO, l capsule 19:46: Daily, 0 Devan n 00 Refill(s) Fish Oil Yes 1,000 mg = Mem oria 1000 mg 07-27 1 cap, PO, l oral 19:46: Daily, 0 [place] capsule 00 Refill(s) vitamin E Yes = 1 tab, Derek hoda 200 intl - PO, Daily, l units oral 19:46: # 14 tab, He rmann tablet 00 0 Refill(s) Vitamin D3 Yes 400 Memoria 400 intl 07-27 IntlUnit = l units oral 19:46: 1 cap, PO, H ermann capsule 00 Daily, 0 Refill(s) Vitamin C Yes 1,000 mg = Me moria 500 mg oral 07-27 2 cap, PO, l capsule 19:46: Daily, # Devan n 00 30 cap, 0 Refill(s) Metoprolol Metoprolol Yes Annia [address] [facility] Tartrate Tartrate [place] with food [facility] Humalog Mix Humalog Mix Yes Annia 34uQAM and [facility] 75/25 75/25 [place] 12u QHS [facility] KwikPen KwikPen [facility] Trelegy Trelegy Yes Annia [address] [facility] Ellipta Ellipta [place] [facility] Sertraline Sertraline Yes Annia 1.[address] [facility] HCl HCl [place] [facility] Probiotic Probiotic Yes Annia not [facility] Formula Formula [place] defined [facility] Prednisone Prednisone Yes Annia [address] [facility] [place] with food [facility] - or milk [facility] Amiodarone Amiodarone Yes Annia [address] [facility] HCl HCl [place] [facility] Aspirin Aspirin Yes Annia [address] [facility] [place] [facility] Co Q 10 Co Q 10 Yes Annia [address] [facility] [place] with a [facility] - meal [facility] Vitamin E Vitamin E Yes Annia [address] [facility] [place] [facility] Tylenol Tylenol Yes Annia not [facility] [place] defined [facility] Ocuvite Ocuvite Yes Annia not [facility] [place] defined [facility] Vitamin D3 Vitamin D3 Yes Annia [address] [facility] [place] [facility] Lisinopril Lisinopril Yes Annia [address] [facility] [place] [facility] Colace Colace Yes Annia not [facility] [place] defined [facility] ProAir HFA ProAir HFA Yes Annia [address] [facility] [place] needed [facility] Krill Oil Krill Oil Yes Annia as [facility] [place] directed [facility] Furosemide Furosemide Yes Annia TAKE [address] [facility] [place] TABLET BY [facility] - MOUTH ONCE Memoria DAILY l [facility] Ipratropium Ipratropium Yes Annia not [facility] -Albuterol -Albuterol [place] defined [facility] Spironolact Spironolact Yes Annia [address] [facility] one one [place] [facility] Vital Signs Vital Name Observation Time Observation Value Comments Source Systolic (mm Hg) 2018-09-20 18:00:00 Derek rial [place] Diastolic (mm Hg) 2018-09-20 18:00:00 [facility] [place] Systolic (mm Hg) 2018-09-20 17:00:00 Derek [facility] [place] Diastolic (mm Hg) 2018-09-20 17:00:00 [facility] [place] Temperature Oral (F) 2018-09-20 16:00:00 96.8 F [facility] Systolic (mm Hg) 2018-09-20 15:00:00 Derek rial [place] Diastolic (mm Hg) 2018-09-20 15:00:00 [facility] [place] Temperature Oral (F) 2018-09-20 13:08:00 96.7 F [facility] Respitory Rate 2018-09-20 02:00:00 [facility] [place] Respitory Rate 2018-09-20 00:00:00 [facility] [place] Respitory Rate 2018-09-19 23:00:00 [facility] [place] Temperature Oral (F) 2018-09-19 13:00:00 97.3 F [facility] [place] Height 2018-09-18 14:00:00 162.56 cm [facility] Height 2018-09-17 22:00:00 162.56 cm [facility] Weight 2018-09-15 10:47:00 [facility] Height 2018-09-11 12:56:00 162.56 cm [facility] Weight 2018-09-09 20:25:00 [facility] BMI Calculated 2018-09-09 20:25:00 [facility] [place] Systolic (mm Hg) 2018-03-13 18:10:00 [facility] Diastolic (mm Hg) 2018-03-13 18:10:00 [facility] Temperature Oral (F) 2018-03-13 18:10:00 98.2 F [facility] Respitory Rate 2018-03-13 18:10:00 [facility] Respitory Rate 2018-03-13 17:15:00 [facility] [place] Systolic (mm Hg) 2018-03-13 17:15:00 [facility] [place] Diastolic (mm Hg) 2018-03-13 17:15:00 [facility] Respitory Rate 2018-03-13 17:00:00 [facility] [place] Systolic (mm Hg) 2018-03-13 17:00:00 [facility] Diastolic (mm Hg) 2018-03-13 17:00:00 [facility] [place] Temperature Oral (F) 2018-03-13 10:00:00 98.3 F [facility] Temperature Oral (F) 2018-03-13 06:00:00 97.7 F [facility] Height 2018-03-12 21:20:00 162.56 cm [facility] Weight 2018-03-12 21:20:00 [facility] BMI Calculated 2018-03-12 21:20:00 [facility] [place] Respitory Rate 2017-09-22 19:16:00 [facility] Systolic (mm Hg) 2017-09-22 19:16:00 [facility] Diastolic (mm Hg) 2017-09-22 19:16:00 [facility] [place] Respitory Rate 2017-09-22 16:00:00 [facility] Systolic (mm Hg) 2017-09-22 16:00:00 [facility] Diastolic (mm Hg) 2017-09-22 16:00:00 [facility] [place] Temperature Oral (F) 2017-09-22 16:00:00 98.2 F [facility] Systolic (mm Hg) 2017-09-22 15:00:00 Derek [facility] [place] Diastolic (mm Hg) 2017-09-22 15:00:00 [facility] Respitory Rate 2017-09-22 14:14:00 [facility] Temperature Oral (F) 2017-09-22 12:00:00 98.3 F [facility] Temperature Oral (F) 2017-09-22 09:00:00 98.0 F [facility] BMI Calculated 2017-09-15 09:32:00 [facility] Weight 2017-09-15 09:32:00 [facility] Height 2017-09-15 09:32:00 161.29 cm [facility] Respitory Rate 2014-08-04 20:00:00 [facility] Systolic (mm Hg) 2014-08-04 20:00:00 [facility] Diastolic (mm Hg) 2014-08-04 20:00:00 [facility] Systolic (mm Hg) 2014-08-04 19:00:00 [facility] Diastolic (mm Hg) 2014-08-04 19:00:00 [facility] Systolic (mm Hg) 2014-08-04 17:00:00 [facility] Diastolic (mm Hg) 2014-08-04 17:00:00 [facility] Respitory Rate 2014-08-04 16:09:00 [facility] Temperature Oral (F) 2014-08-04 16:00:00 99.0 F [facility] Respitory Rate 2014-08-04 12:00:00 Shivani martinez [place] Temperature Oral (F) 2014-08-04 12:00:00 98.4 F [facility] Temperature Oral (F) 2014-08-04 09:31:00 98.5 F [facility] Height 2014-07-27 19:15:00 162.56 [facility] BMI Calculated 2014-07-27 19:15:00 Shivani Fontanez Weight 2014-07-27 19:15:00 [facility] Procedures Procedure Date / Time Performing Clinician Source Performed AAA - Repair of abdominal 2014-02-14 00:00:00 [place] ge[facility] Portilloann aortic aneurysm using straight graft CABG x 3 - Coronary artery 1999-07-16 05:00:00 M tianarimichelle Portilloann bypass grafts x 3 Cholecystectomy 1973-02-14 06:00:00 [facility] sauceda Bladder operation 1953-02-14 06:00:00 [facility] Encounters Start End Encounter Admission Attending Care Care Encounter Source Date/Time Date/Time Type Type Clinicians Facility Department ID 2018-09-09 Inpatient U [facility] [address] [facility] 14:59:00 2020-05-19 [id number] 2020-04-25 2020[facility]04-25 [id number] 2020-04-25 2020-04-25 Orders Doctor PATRICE [id number] 00:00:00 00:00:00 Only Unassigned, LIZZIE [id number] [place] [facility] [id number] 2020-04-24 2020-04-24 Telephone Goode, [facility] [id number] 00:00:00 00:00:00 Giorgio Tang [id number] Luisa [id number] [facility] [id number] [address] 2020-04-16 2020-04-16 Outpatient [facility] [id number] [facility] 2020-04-11 2020-04-11 Outpatient [facility] [id number] [facility] 2020-03-28 2020-03-28 Outpatient [facility] [id number] [facility] 2020-03-28 2020-03-28 Outpatient [facility] [id number] [facility] 2020-03-17 2020-03-17 Outpatient [facility] [id number] [facility] 2020-03-14 2020-03-14 Outpatient [facility] [id number] [facility] 2020-03-10 2020-03-10 Outpatient [facility] [id number] [facility] 2020-03-03 2020-03-03 Outpatient [facility] [id number] [facility] 2020-02-18 2020-02-18 Outpatient [facility] [id number] [facility] 2020-02-18 2020-02-18 Outpatient [facility] [id number] [facility] 2020-01-31 2020-01-31 Outpatient [facility] [id number] [facility] 2020-01-31 2020-01-31 Outpatient [facility] [id number] [facility] 2020-01-28 2020-01-28 Outpatient [facility] [id number] [facility] 2020-01-28 2020-01-28 Outpatient [facility] [id number] [facility] 2020-01-18 2020-01-18 Outpatient [facility] [id number] [facility] 2020-01-04 2020-01-04 Outpatient [facility] [id number] [facility] 2020-01-03 2020-01-03 Outpatient [facility] [id number] [facility] 2019-10-25 2019-10-25 Outpatient [facility] [id number] [facility] 2019-10-16 2019-10-16 [facility] [id number] 16[facility]00:00 16:00:00 [facility] Medicine l Medicine Outpati ent Clinics 2019-07-16 2019-07-16 [facility] [id number] 16:00:00 16:00:00 [facility] Medicine l Medicine Outpati ent Clinics 2019-07-16 2019-07-16 [facility] [id number] [facility] 15:20:00 15:20:00 [facility] Medicine l Medicine Outpati ent Clinics 2019-07-10 2019-07-10 [facility] [id number] 09:26:00 09:26:00 [facility] Medicine l Medicine Outpati ent Clinics 2019-05-01 2019-05-01 [facility] [id number] 16:01:00 16:01:00 t Specialty/U Mi kes - Specialty rology [facility]Urology Clinic l Clinic Outpati ent Clinics 2019-04-16 2019-04-16 [facility] [id number] 09:24:00 09:24:00 t Specialty/U Mi kes - Specialty rology [facility]Urology Clinic l Clinic Outpati ent Clinics 2019-04-13 2019-04-13 [facility] [id number] 10:11:00 10:11:00 t [facility] l Medicine Outpati ent Clinics 2019-03-15 2019-03-15 [facility] [id number] 15:20:00 15:20:00 t [facility] Medicine Outpati ent Clinics 2019-03-13 2019-03-13 [facility] [id number] 10:00:00 10:00:00 t Specialty/U Mi kes - Specialty rology [facility] /Urology Clinic l Clinic Outpati ent Clinics 2019-03-08 2019-03-08 [facility] [id number] 14:42:00 14:42:00 t [facility] Medicine Outpati ent Clinics 2019-02-06 2019-02-06 [facility] [id number] [facility] 09:39:00 09:39:00 t [facility] Medicine Outpati ent Clinics 2018-12-25 2018-12-25 [facility] [id number] 09:14:00 09:14:00 t Specialty/U Mi kes - Specialty rology [facility]Urology Clinic l Clinic Outpati ent Clinics 2018-12-18 2018-12-18 [facility] [id number] 15:00:00 15:00:00 t [facility] Medicine Outpati ent Clinics 2018-12-12 2018-12-12 [facility] [id number] 16:30:00 16:30:00 t Specialty/U Mi kes - Specialty rology [facility] /Urology Clinic l Clinic Outpati ent Clinics 2018-12-12 2018-12-12 [facility] [id number] [facility] 09:00:00 09:00:00 t Specialty/U Mi kes - Specialty rology [facility] /Urology Clinic l Clinic Outpati ent Clinics 2018-12-11 2018-12-11 [facility] [id number] 08:32:00 08:32:00 t [facility] Medicine l Medicine Outpati ent Clinics 2018-12-08 2018-12-08 [facility] [id number] 09:31:00 09:31:00 t [facility] l Medicine Outpati ent Clinics 2018-11-17 2018-11-17 [facility] [id number] [facility] 11:00:00 11:00:00 t [facility] Medicine l Medicine Outpati ent Clinics 2018-11-06 2018-11-06 [facility] [id number] [facility] 16:42:00 16:42:00 t [facility] Medicine l Medicine Outpati ent Clinics 2018-11-01 2018-11-01 [facility] [id number] [facility] 08:40:00 08:40:00 t [facility] Medicine Outpati ent Clinics 2018-10-13 2018-10-13 [facility] [id number] [facility] 11:00:00 11:00:00 t [facility] Medicine Medicine Outpati ent Clinics 2018-09-09 2018-09-20 Outpatient [place] [id number] 14:59:00 14:30:00 w, Tera Golden 2018-03-12 2018-03-13 Outpatient [place] [id number] 14:34:00 16:40:00 w, Ozzie Golden 2018-03-12 2018-03-13 Outpatient [place] [id number] 14:34:00 16:40:00 w, 01 Ozzie Golden 2017-09-15 2017-09-22 Outpatient Timoteo [facility] [id number] 06:04:00 15:00:00 Vianey Colemanbeta 2014-07-27 2014-08-04 Outpatient Tiffany [facility] [id number] 14:08:00 16:30:00 w, 67 Ozzie Golden Results Test Description Test Time Test Comments Results Result Comments Source CHEM PANEL 2018-09-20 2.9 [facility] 10:26:00 CHEM PANEL 2018-09-20 2.2 [facility] 10:26:00 CHEM PANEL 2018-09-20 15 [facility] 10:26:00 CHEM PANEL 2018-09-20 0.89 [facility] 10:26:00 CHEM PANEL 2018-09-20 114 [facility] 10:26:00 CHEM PANEL 2018-09-20 59 [facility] 10:26:00 CHEM PANEL 2018-09-20 29 [facility] 10:26:00 CHEM PANEL 2018-09-20 8.2 [facility] 10:26:00 CHEM PANEL 2018-09-20 13.8 [facility] 10:26:00 CHEM PANEL 2018-09-20 141 [facility] 10:26:00 CHEM PANEL 2018-09-20 3.8 [facility] 10:26:00 CHEM PANEL 2018-09-20 102 [facility] 10:26:00 CARDIAC ENZYMES 2018-09-18 0.02 [facility] 17:53:00 CARDIAC ENZYMES 2018-09-18 46 [facility] 17:53:00 CARDIAC ENZYMES 2018-09-18 47 [facility] 12:42:00 CARDIAC ENZYMES 2018-09-18 0.02 [facility] 12:42:00 CHEM PANEL 2018-09-18 3.4 [facility] 12:42:00 CHEM PANEL 2018-09-18 1.9 [facility] 12:42:00 CHEM PANEL 2018-09-18 55 [facility] 12:42:00 CHEM PANEL 2018-09-18 7.8 [facility] 12:42:00 CHEM PANEL 2018-09-18 32 [facility] 12:42:00 CHEM PANEL 2018-09-18 190 [facility] 12:42:00 CHEM PANEL 2018-09-18 0.95 [facility] 12:42:00 CHEM PANEL 2018-09-18 3.7 [facility] 12:42:00 CHEM PANEL 2018-09-18 14 [facility] 12:42:00 CHEM PANEL 2018-09-18 140 [facility] 12:42:00 CHEM PANEL 2018-09-18 102 [facility] 12:42:00 CHEM PANEL 2018-09-18 9.7 [facility] 12:42:00 HEMATOLOGY 2018-09-18 9.6 [facility] 12:42:00 HEMATOLOGY 2018-09-18 1.7 [facility] 12:42:00 HEMATOLOGY 2018-09-18 0.7 [facility] 12:42:00 HEMATOLOGY 2018-09-18 5.6 [facility] 12:42:00 HEMATOLOGY 2018-09-18 1.6 [facility] 12:42:00 HEMATOLOGY 2018-09-18 0.1 [facility] 12:42:00 HEMATOLOGY 2018-09-18 0.8 [facility] 12:42:00 HEMATOLOGY 2018-09-18 19.7 [facility] 12:42:00 HEMATOLOGY 2018-09-18 68.3 [facility] 12:42:00 HEMATOLOGY 2018-09-18 0.1 [facility] 12:42:00 HEMATOLOGY 2018-09-18 27.9 [facility] 12:42:00 HEMATOLOGY 2018-09-18 90.9 [facility] 12:42:00 HEMATOLOGY 2018-09-18 3.07 [facility] 12:42:00 HEMATOLOGY 2018-09-18 9.4 [facility] 12:42:00 HEMATOLOGY 2018-09-18 33.5 [facility] 12:42:00 HEMATOLOGY 2018-09-18 12:42:00 Test Item Value Reference Range Interpretation Comme nts MCH (test code = MCH) 30.5 pg 27.0-31.0 [facility] MgqfgleAHLKNZNWAE7789-14-89 12:42:84418Urdbyomx HermannHEMATOLOGY 2018-09-18 12:42:007.1[facility] WazayclODMENEZAOJ7460-58-72 12:42:0015.0[facility] SchttxoAZQHTJZFXH5016-93-06 12:42:008.2[facility] HermannPARATHYROID PROFILE 2018-09-18 12:42:001.07[facility] HermannPARATHYROID SGUPGHE0536-49-16 12:42:00 1.03[facility] HermannURINE AND NZCSK9924-69-49 15:18:007[facility]annURINE AND QGOIY0037-17-49 15:18:00<1[facility]ann[facility] AND FRQBX9536-13-34 15:18:00 1[facility]ann[facility] AND XRETQ2352-21-37 15:18:00Negative *NA*(09/17/18 10:18 AM)[facility] AND KCKND5452-73-22 15:18:00Light Yellow *NA*(09/17/18 10:18 AM)[facility] AND ZCAGQ6220-00-10 15:18:00 Test Item Value Reference Range Interpretation Comments UA pH (test code = UA pH) 7.0 1 5.0-8.0 [facility] HLVFO5653-63-92 15:18:00 Test Item Value Reference Range Interpretation Comments UA Spec Grav (test code = UA Spec 1.006 1 Grav) [facility] ODVGO4070-69-97 15:18:00Clear (09/17/18 10:18 AM) [facility] RUBKA7937-44-16 15:18:00Negative (09/17/18 10:18 AM) [facility] NXCQP9631-68-43 15:18:00<1.0[facility] EHNSJ6503-36-74 15:18:00Negative (09/17/18 10:18 AM)[facility] IQRSJ9355-19-13 15:18:00Negative (09/17/18 10:18 AM)[facility] HermannCHEM PANEL 2018-09-16 08:42:0057[facility] HermannCHEM DWBLK5227-51-98 08:42:003.9[facility] HermannCHEM WATBZ1988-64-28 08:42:87223Bodjtisg HermannCHEM KFPWC1920-04-10 08:42:0031[facility] HermannCHEM ODCDS2260-39-62 08:42:007.7[facility] HermannCHEM BMRVO9707-21-74 08:42:31415Jnykllua HermannCHEM NZQDA9258-88-05 08:42:000.91 [facility] HermannCHEM NBUDB1862-11-83 08:42:40163Yuodzesn HermannCHEM PANEL 2018-09-16 08:42:0020[facility] HermannCHEM KDWYZ1646-09-62 08:42:0010.9[facility] HermannCHEM GJMRQ7301-77-02 08:42:001.9[facility] HermannCHEM MYZPU2213-46-68 08:42:002.6[facility] VzcppzwYFAWXZCSVH5288-20-32 08:42:002.75[facility] TUYUXRFZHE8772-85-58 08:42:007.8[facility] SvfnikfQSWAAYBYYX8487-88-42 08:42:09789 [facility] KgrtzdiUNTOVOOESH2916-85-85 08:42:0014.1[facility] HermannHEMATOLOGY 2018-09-16 08:42:0034.6[facility] WpknvadPIRNDOLSNJ4688-35-40 08:42:006.4[facility] EaezjzdTXYVNPSBEH6728-37-62 08:42:0090.8[facility] JzqfymnAFZWMHOIYP8918-58-32 08:42:0025.0[facility] TqwcwbaYLQUESFXPT5591-40-07 08:42:00 Test Item Value Reference Range Interpretation Comments MCH (test code = MCH) 31.5 pg 27.0-31.0 [facility] FohtxbgHCECUFXFXP0818-88-28 08:42:008.6[facility] HermannHEMATOLOGY 2018-09-16 08:42:00 Test Item Value Reference Range Interpretation Comments INR (test code = INR) 1.04 1 0.85-1.17 [facility] PnxynazMTQKXWVEJK3475-16-16 08:42:00 Test Item Value Reference Range Interpretation Comments PT (test code = PT) 13.4 s 12.0-14.7 [facility] EulpjuwXQZRESNACB6600-38-76 08:42:00 Test Item Value Reference Range Interpretation Comments PTT (test code = PTT) 40.1 s 22.9-35.8 [facility] QtoudmoDEYJSAHASD2529-60-45 08:42:008.8[facility] HermannHEMATOLOGY 2018-09-16 08:42:001.1[facility] LbtacqrYTZPFSEFSV6704-08-43 08:42:000.6[facility] TzjzomgJEHLRYUQTN5132-76-11 08:42:000.3[facility] SirwalyBJARDFSBFQ4519-77-75 08:42:000.1[facility] LldgdkfHRMCQTJZEJ6106-36-01 08:42:001.0[facility] OZLCPVKHXG1534-02-14 08:42:004.8[facility] LrrmxhvGGIZANVPMD1040-61-58 08:42:00 15.6[facility] PeopqszNKWRIZBVXW5197-22-25 08:42:0074.2[facility] HermannHEMATOLOGY 2018-09-15 07:26:006.2[facility] ZpevvyjBLKUWVSPKQ6286-53-92 07:26:008.9[facility] IpnnaarJRLVGLWQYM3897-60-66 07:26:008.0[facility] DqvbrhfCMOYMVGOLU4896-62-87 07:26:002.88[facility] JgkrpkyKZFRBMSUKD8209-65-90 07:26:0026.0[facility] BRKGERZWGB4836-42-86 07:26:0090.4[facility] FoixxisVHENUKRLMK1788-16-32 07:26:00 Test Item Value Reference Range Interpretation Comments MCH (test code = MCH) 30.8 pg 27.0-31.0 [facility] QiiaoriOHIZIIKXLB5845-15-21 07:26:45489Temulkis HermannHEMATOLOGY 2018-09-15 07:26:007.7[facility] ZkwgwqmJOZEIHYRUQ4066-32-36 07:26:0034.1[facility] BuollytYNRJNQDLJK7761-77-23 07:26:0014.7[facility] HermannBLOOD BANK RESULTS 2018-09-15 07:26:00Negative (09/15/18 2:26 AM)[facility] HermannCHEM KESAC0201-20-27 07:26:001.0[facility] FcnclgiHNWYMXYCEB8632-30-05 07:26:008.7[facility] ELAISPQZYS1478-75-37 07:26:0077.6[facility] NtudjroNNETXGFNWY4760-83-02 07:26:00 0.6[facility] ZkbldpnTZPRTREQTC7423-03-94 07:26:0012.8[facility] HermannHEMATOLOGY 2018-09-15 07:26:001.0[facility] AbghyvjYRXVGZQNFE9193-71-92 07:26:000.7[facility] DkmkgqmNTZWYEHXRF2518-52-97 07:26:000.3[facility] HermannCHEM NHZLK2631-23-21 20:49:001.4[facility] AjgisepRHLQWXJOTT9536-15-58 13:53:0047.7[facility] SAHBHOKRCO2962-97-19 06:14:00 Test Item Value Reference Range Interpretation Comments PTT (test code = PTT) 27.9 s 22.9-35.8 [facility] TmjsxecQKCYKZNILX7109-24-33 06:14:00 Test Item Value Reference Range Interpretation Comments PT (test code = PT) 14.4 s 12.0-14.7 [facility] AipstppXWABIMQFCI6946-68-70 06:14:00 Test Item Value Reference Range Interpretation Comments INR (test code = INR) 1.14 1 0.85-1.17 [facility] HermannPARATHYROID BIWULTY6008-39-30 05:15:001.13[facility] PARATHYROID XBFYMNP9631-61-42 05:15:001.14[facility] AraxihyOBIVLIHUMI3514-40-07 05:05:00 Test Item Value Reference Range Interpretation Comments PT (test code = PT) 15.0 s 12.0-14.7 [facility] AhaovezIEMTKNPDIG5524-52-55 05:05:00 Test Item Value Reference Range Interpretation Comments INR (test code = INR) 1.20 1 0.85-1.17 [facility] XqsnnhqVQCITNHQYX6292-21-54 05:05:00 Test Item Value Reference Range Interpretation Comments PTT (test code = PTT) 30.8 s 22.9-35.8 [facility] HermannPARATHYROID SBEIDWF8443-36-70 02:09:001.12[facility] PARATHYROID ODINRHG2427-39-80 02:09:001.13[facility] HermannCHEM HXYBB1723-99-40 13:23:003.9[facility] HermannCARDIAC MODEBSK2813-38-12 05:19:26455Xufgqein [facility] GQUKSEEJG6357-88-30 05:19:25088Lavhlezj HermannBLOOD BANK TEXOMNY4665-26-19 02:33:00Product available (09/10/18 9:33 PM)[facility] CEFEPIME:SUSC:PT:ISOLATE:ORDQN:IWN9576-75-35 20:39:00Klebsiella pneumoniae ssp pneumoniaeMemorial IlhnpiwCTKAPVSWHP8871-31-19 20:39:000.0[facility] NUIGATUZOD6688-51-79 20:39:00 Test Item Value Reference Range Interpretation Comments Max Amplitude Rapid (test code = Max 62 mm 52-71 Amplitude Rapid) [facility] CenterHxsdjpwGQDCYMGNAZ0702-60-03 20:39:00 Test Item Value Reference Range Interpretation Comments Angle Rapid (test code = Angle 76 degrees 64-80 Rapid) [facility] CenterOgkzaklHAJAVRJFBO0026-01-71 20:39:00 Test Item Value Reference Range Interpretation Comments R-time Rapid (test code = R-time 0.3 min 0.4-0.7 Rapid) [facility] CenterZymwejhMFHQXBTXCY1903-56-97 20:39:00 Test Item Value Reference Range Interpretation Comments K-time Rapid (test code = K-time 1.4 min 0.6-2.3 Rapid) [facility] CenterLvzpfqxIFVSIIVHME8291-26-75 20:39:00 Test Item Value Reference Range Interpretation Comments ACT (TEG) Rapid (test code = ACT (TEG) 82 s 86-118 Rapid) [facility] CenterIzunovzWXWPCEMUHQ2931-18-80 20:39:00 Test Item Value Reference Range Interpretation Comments Split Point Rapid (test code = Split 0.2 min Point Rapid) [facility] CenterCrosamaNYADAFLGMW9932-02-14 20:39:008.3[facility] HermannURINE AND STOOL 2018-09-10 20:39:00Negative *NA*(09/10/18 3:39 PM)[facility]annUR[facility] AND STOOL 2018-09-10 20:39:00<1.0[facility]annURINE AND KAUAE7691-90-47 20:39:00 Small *ABN*(09/10/18 3:39 PM)[facility]UR[facility] AND EHRAQ9310-11-30 20:39:004 [facility] CPEYG6094-29-25 20:39:006[facility]UR[facility] AND UBXFS3248-62-24 20:39:004[facility]UR[facility] AND DYPGL0935-74-25 20:39:00 >182[facility]UR[facility] AND EIXZZ9641-16-46 20:39:00Large *ABN*(09/10/18 3:39 PM)[facility] AND DXHMG2319-95-90 20:39:00Negative (09/10/18 3:39 PM)[facility] SHHIX2857-86-83 20:39:007[facility]annUR[facility] AND LIOTX9713-78-20 20:39:00 Test Item Value Reference Range Interpretation Comments UA pH (test code = UA pH) 7.0 1 5.0-8.0 [facility] OMLAM6001-39-73 20:39:00 Test Item Value Reference Range Interpretation Comments UA Spec Grav (test code = UA Spec 1.015 1 Grav) [facility] FZZTS2911-99-00 20:39:00Light Yellow *NA*(09/10/18 3:39 PM)[facility]annUR[facility] AND WGETO2269-60-46 20:39:00Marked *ABN*(09/10/18 3:39 PM)[facility] [id number] 15:04:00Modification Required (09/10/18 10:04 AM)[facility] [id number] 15:04:00Product available (09/10/18 10:04 AM)[facility] [id number] 14:30:00Product available (09/10/18 9:30 AM)[facility] RESULTS 2018-09-10 14:28:00Product available (09/10/18 9:28 AM)[facility] [id number] 12:03:00Product available (09/10/18 7:03 AM)[facility] [id number] 06:35:000.2[facility] JgsshvaKXPGTTYMVL5309-02-49 06:35:000.1 [facility] [id number] 23:46:00Product available (09/09/18 6:46 PM)[facility] [id number] 23:46:00Product available (09/09/18 6:46 PM)[facility] [id number] 23:46:00Product available (09/09/18 6:46 PM)[facility] - [id number] 20:33:00Negative (09/09/18 3:33 PM)[facility] [id number] 20:33:00Negative (09/09/18 3:33 PM)[facility] [id number] 20:33:00 Test Item Value Reference Range Interpretation Comments A/G Ratio (test code = A/G Ratio) 0.9 1 0.7-1.6 [facility] [id number] 20:33:003.4[facility]annCHE[facility] PANEL 2018-09-09 20:33:0022[facility]CHE[facility] [id number] 20:33:000.5[facility] [id number] 20:33:006.5[facility]CHE[facility] [id number] 20:33:000.1[facility]annCHE[facility] [id number] 20:33:0054[facility]annCHE[facility] [id number] 20:33:000.4[facility]annCHE[facility] [id number] 20:33:0020 [facility]CHE[facility] [id number] 20:33:003.1[facility]annHEMATOLOGY 2018-09-09 20:33:000.1[facility] [id number] 20:33:00 Test Item Value Reference Range Interpretation Comments VLDL (test code = VLDL) 45 1 [facility] SnwywzcKSVSAR0299-85-02 20:33:56213Ghpaifjj HfswitnWDWKRI4650-88-90 20:33:0052[facility] UsfjtkxMBYOHZ8308-86-81 20:33:62378Hsrevuog HermannLIPIDS 2018-09-09 20:33:48420Vuglgsco VzjslssWYDHJZ1980-23-89 20:33:00 Test Item Value Reference Range Interpretation Comments CHD Risk (test code = CHD Risk) 4.33 1 3.90-5.80 [facility] [id number] 20:33:006.7[facility] [id number] 11:31:00 Test Item Value Reference Range Interpretation Comments GLUCOSE BEDSIDE TESTING (test code 165 MG/DL 60-99 H = GLUBED) GLUCOSE BEDSIDE [id number] 08:35:00 Test Item Value Reference Range Interpretation Comments GLUCOSE BEDSIDE TESTING (test code 106 MG/DL 60-99 H = GLUBED) GLUCOSE BEDSIDE [id number] 21:27:00 Test Item Value Reference Range Interpretation Comments GLUCOSE BEDSIDE TESTING (test code 120 MG/DL 60-99 H = GLUBED) GLUCOSE BEDSIDE [id number] 16:37:00 Test Item Value Reference Range Interpretation Comments GLUCOSE BEDSIDE TESTING (test code 203 MG/DL 60-99 H = GLUBED) GLUCOSE BEDSIDE [id number] 12:26:00 Test Item Value Reference Range Interpretation Comments GLUCOSE BEDSIDE TESTING (test code = 96 MG/DL 60-99 N GLUBED) GLUCOSE BEDSIDE [id number] 07:56:00 Test Item Value Reference Range Interpretation Comments GLUCOSE BEDSIDE TESTING (test code 153 MG/DL 60-99 H = GLUBED) GLUCOSE BEDSIDE [id number] 20:19:00 Test Item Value Reference Range Interpretation Comments GLUCOSE BEDSIDE TESTING (test code 229 MG/DL 60-99 H = GLUBED) GLUCOSE BEDSIDE [id number] 16:49:00 Test Item Value Reference Range Interpretation Comments GLUCOSE BEDSIDE TESTING (test code 191 MG/DL 60-99 H = GLUBED) GLUCOSE BEDSIDE [id number] 12:48:00 Test Item Value Reference Range Interpretation Comments GLUCOSE BEDSIDE TESTING (test code 194 MG/DL 60-99 H = GLUBED) GLUCOSE BEDSIDE [id number] 07:39:00 Test Item Value Reference Range Interpretation Comments GLUCOSE BEDSIDE TESTING (test code 200 MG/DL 60-99 H = GLUBED) GLUCOSE BEDSIDE [id number] 05:51:00 Test Item Value Reference Range Interpretation Comments GLUCOSE BEDSIDE TESTING (test code 225 MG/DL 60-99 H = GLUBED) GLUCOSE BEDSIDE [id number] 23:44:00 Test Item Value Reference Range Interpretation Comments GLUCOSE BEDSIDE TESTING 441 MG/DL 60-99 HH Call Lab Stat GLu~ (test code = GLUBED) [id number] 21:43:00 Test Item Value Reference Range Interpretation Comments GLUCOSE (test code = 392 MG/DL 74-106 HH CALLED TO [facility]) READBACK ON 10/02 AT 2143 BY Annie Blackmon GLUCOSE BEDSIDE [id number] 17:57:00 Test Item Value Reference Range Interpretation Comments GLUCOSE BEDSIDE TESTING (test code 257 MG/DL 60-99 H = GLUBED) - XR CHEST [id number] 17:15:00 Patient Name: SUSANA YAO Unit No: [id number] EXAMS: CPT CODE: [id number] XR CHEST 1V 90601 Location: T18 CHEST X-RAY: Portable AP frontal projection, 04/21 CLINICAL HISTORY: S/P ICD COMPARISON EXAMS: Chest [...] pacemaker without pneumothorax. No acute findings. at 6345 Reported and signed by: Ana M Longoria MD CC: Khalif Villatoro; Ace Kent; Edvin Bearden MD Technologist: Sofi Haider (RT) (AART) Transcrpt Date/Tm/Trnsp: 04/21/2018 (0558) [id number] Orig Print D/T: S: 04/21/2018 (8592) [facility] NAME: SUSANA YAO [id number] [address] PHYS: [place] [address] : 1930 AGE: 88 SEX: F LOC: Z.[facility] A PHONE #: [phone] EXAM DATE: 04/21/2018 STATUS: ADM IN FAX #: [phone] RADIOLOGY NO: PAGE 1 Signed ReportGLUCOSE BEDSIDE [id number] 16:57:00 Test Item Value Reference Range Interpretation Comments GLUCOSE BEDSIDE TESTING (test code 147 MG/DL 60-99 H = GLUBED) PROTHROMBIN [id number] 11:24:00 Test Item Value Reference Range Interpretation Comments PROTHROMBIN TIME 10.5 SECONDS 9.6-11.6 N PATIENT (test code = PTP) INTERNATIONAL NORMAL 1.0 0.8-1.1 N The INR is to be RATIO (test code = used only for INR) monitoring oral anticoagulantth erap y. INDICATION I NR VALUE ---- ---- ---- -------1. Prophylaxis, de ep venous thrombos is, including hig h risk surgery. 2.0 - 3.0 2. Prophylaxis, de ep venous thrombos is, hip surgery, treatment for d eep venous thrombosis or pulmonary prevention of systemic emboli sm in patients wit h valvular heart disease, atrial fibrillation, tissue heart va lve, or acute myocar dial infarction. 2.0 - 3 .0 3. Mechanical prosthesis hear t valves, recurrent syste concepcion embolism. 3.0 - 4.5 Comments to Meter Installer: PLEASE DRAW ASAPPTT [id number] 11:24:00 Test Item Value Reference Range Interpretation Comments PTT ACTIVATED (test code = APTT) 24.2 SECONDS 22.0-33.0 N Comments to Meter Installer: PLEASE DRAW ASAPGLUCOSE BEDSIDE [id number] 08:03:00 Test Item Value Reference Range Interpretation Comments GLUCOSE BEDSIDE TESTING (test code 129 MG/DL 60-99 H = GLUBED) GLUCOSE BEDSIDE [id number] 21:47:00 Test Item Value Reference Range Interpretation Comments GLUCOSE BEDSIDE TESTING (test code 199 MG/DL 60-99 H = GLUBED) GLUCOSE BEDSIDE [id number] 16:15:00 Test Item Value Reference Range Interpretation Comments GLUCOSE BEDSIDE TESTING (test code = 91 MG/DL 60-99 N GLUBED) GLUCOSE BEDSIDE [id number] 12:34:00 Test Item Value Reference Range Interpretation Comments GLUCOSE BEDSIDE TESTING (test code 109 MG/DL 60-99 H = GLUBED) BASIC METABOLIC [id number] 11:32:00 Test Item Value Reference Range Interpretation Comments SODIUM (test code = 139 MMOL/L 137-145 N NA) POTASSIUM (test code = 4.2 MMOL/L 3.5-5.1 N K) CHLORIDE (test code = 102 MMOL/L 98-107 N CL) CARBON DIOXIDE (test 34 MMOL/L 22-30 H code = CO2) ANION GAP (test code = 7 MMOL/L 14-24 L GAP) GLUCOSE (test code = 129 MG/DL 74-106 H GLU) BLOOD UREA NITROGEN 24 MG/DL 7-17 H (test code = BUN) GLOMERULAR FILTRATION 59 Report ing units: RATE (test code = GFR) ml/mi n/1.73 m2 (Modified MDRD Formula)Referen ce Range: > or = 6 0 ml/min/1.73 m2 CREATININE (test code 0.90 MG/DL 0.52-1.04 N = CREAT) CALCIUM (test code = 8.8 MG/DL 8.4-10.2 N CA) LIPID PROFILE (CORONARY RISK)2018-04-20 11:32:00 Test Item Value Reference Range Interpretation Comments TRIGLYCERIDES (test 389 MG/DL TRIGLYCE RIDES code = TRIG) REFERENCE RANGE:Normal: < 150 mg/dLBorderline High: 150-199 mg/dLHi gh: 200-499 mg/dLVe ry High: >=500 mg/ dL CHOLESTEROL (test code 180 MG/DL <200 = CHOL) HDL CHOLESTEROL (test 39 MG/DL 40-59 L code = HDL) LIPOPROTEIN LDL (test 106 MG/DL 0-99 H code = LDL) OPTIMAL........ .<100 mg/dLNEAR OPTIMAL/ABOVE OPTIMAL........ .100-12 9 mg/dL BORDERLINE HIGH.........13 0-159 mg/dL HIGH.........16 0-189 mg/dL VERY HIGH...... ...>/= 190 mg/dL [id number] 11:32:00 Test Item Value Reference Range Interpretation Comments TROPONIN-I (test 0.572 NG/ML 0.012-0.033 CALLED TO [place] ELINA& code = TROPI) READBACK ON AT 1132 BY Alberto Betancur BASIC METABOLIC [id number] 11:14:00 Test Item Value Reference Range Interpretation Comments SODIUM (test code = 139 MMOL/L 137-145 N NA) POTASSIUM (test code = 4.2 MMOL/L 3.5-5.1 N K) CHLORIDE (test code = 102 MMOL/L 98-107 N CL) CARBON DIOXIDE (test 34 MMOL/L 22-30 H code = CO2) ANION GAP (test code = 7 MMOL/L 14-24 L GAP) GLUCOSE (test code = 129 MG/DL 74-106 H GLU) BLOOD UREA NITROGEN 24 MG/DL 7-17 H (test code = BUN) GLOMERULAR FILTRATION 59 Report ing units: RATE (test code = GFR) ml/mi n/1.73 m2 (Modified MDRD Formula)Referen ce Range: > or = 6 0 ml/min/1.73 m2 CREATININE (test code 0.90 MG/DL 0.52-1.04 N = CREAT) CALCIUM (test code = 8.8 MG/DL 8.4-10.2 N CA) LIPID PROFILE (CORONARY RISK)2018-04-20 11:14:00 Test Item Value Reference Range Interpretation Comments TRIGLYCERIDES (test 389 MG/DL TRIGLYCE RIDES code = TRIG) REFERENCE RANGE:Normal: < 150 mg/dLBorderline High: 150-199 mg/dLHi gh: 200-499 mg/dLVe ry High: >=500 mg/ dL CHOLESTEROL (test code 180 MG/DL <200 = CHOL) HDL CHOLESTEROL (test 39 MG/DL 40-59 L code = HDL) LIPOPROTEIN LDL (test MG/DL 0-99 code = LDL) [id number] 11:14:00 Test Item Value Reference Range Interpretation Comments TROPONIN-I (test code = TROPI) NG/ML 0.0-0.045 GLYCOSYLATED HEMOGLOBIN [id number] 11:11:00 Test Item Value Reference Range Interpretation Comments GLYCOSYLATED 6.9 % 4.8-5.9 H Any condition t hat HEMOGLOBIN (HA1C) shortens e rythocyte (test code = survival or dec reasesmean GLYHGB) erythrocyte age (e.g., recovery from a cute blood loss,hemolytic anemia) will falsely lo wer HGBA1c resultsregardle ss of the method used. H GBA1c results from [facility] HbSS, HbCC, and HbSc must be interpreted with cautiongiven th e pathological pr ocesses, including anemia,increase d red cell turnover, trans fusion requirements, thatadversely i mpact HGBA1c as a mar ker of long-term glycemiccontrol . Alternative for ms of testing such as fructosaminesho uld be considered for these patients. MEAN BLOOD GLUCOSE 151 MG/DL 70-110 H (test code = MBG) CBC W/AUTO [id number] 10:48:00 Test Item Value Reference Range Interpretation Comments WHITE BLOOD CELL (test code = 8.8 K/MM3 3.8-9.8 N WBC) RED BLOOD CELL (test code = 3.58 M/MM3 3.58-4.97 N RBC) HEMOGLOBIN (test code = HGB) 10.7 G/DL 11.2-14.9 L HEMATOCRIT (test code = HCT) 34.1 % 33.2-43.5 N MEAN CELL VOLUME (test code = 95 fL 80.7-99.1 N MCV) MEAN CELL HGB (test code = MCH) 29.9 pg 27.0-34.1 N MEAN CELL HGB CONCETRATION 31.4 % 32.2-35.7 L (test code = MCHC) RED CELL DISTRIBUTION WIDTH 14.3 % 12.1-15.2 N (test code = RDW) PLATELET COUNT (test code = 133 K/MM3 129-368 N PLT) MEAN PLATELET VOLUME (test code 9.5 fl 7.4-10.4 N = MPV) NEUTROPHIL % (test code = NT%) 64.3 % 43-75 N IMMATURE GRANULOCYTE % (test 0.8 % 0.0-2.0 N code = IG%) LYMPHOCYTE % (test code = LY%) 24.0 % 14-44 N MONOCYTE % (test code = MO%) 8.5 % 4-13 N EOSINOPHIL % (test code = EO%) 2.3 % 0-6 N BASOPHIL % (test code = BA%) 0.1 % 0-2 N NUCLEATED RBC % (test code = 0.0 % 0-1.0 N NRBC%) NEUTROPHIL # (test code = NT#) 5.64 K/mm3 2.0-7.6 N IMMATURE GRANULOCYTE # (test 0.07 x10 3/uL 0-0.03 H code = IG#) LYMPHOCYTE # (test code = LY#) 2.11 K/mm3 1.0-3.8 N MONOCYTE # (test code = MO#) 0.75 K/mm3 0.1-0.8 N EOSINOPHIL # (test code = EO#) 0.20 K/mm3 0.0-0.2 N BASOPHIL # (test code = BA#) 0.01 K/mm3 0.0-0.2 N NUCLEATED RBC # (test code = 0.00 K/mm3 0.0-0.1 N NRBC#) GLUCOSE BEDSIDE [id number] 08:27:00 Test Item Value Reference Range Interpretation Comments GLUCOSE BEDSIDE TESTING (test code 112 MG/DL 60-99 H = GLUBED) GLUCOSE BEDSIDE [id number] 06:18:00 Test Item Value Reference Range Interpretation Comments GLUCOSE BEDSIDE TESTING (test code = 92 MG/DL 60-99 N GLUBED) [id number] 02:10:00 Test Item Value Reference Range Interpretation Comments TROPONIN-I (test 0.679 NG/ML 0.012-0.033 HH CALLED TO [facility] H imu & code = TROPI) READBACK ON AT 0209 BY Jo Monson GLUCOSE BEDSIDE [id number] 23:12:00 Test Item Value Reference Range Interpretation Comments GLUCOSE BEDSIDE TESTING (test code 196 MG/DL 60-99 H = GLUBED) BASIC METABOLIC [id number] 21:51:00 Test Item Value Reference Range Interpretation Comments SODIUM (test code = 138 MMOL/L 137-145 N NA) POTASSIUM (test code = 4.6 MMOL/L 3.5-5.1 N K) CHLORIDE (test code = 101 MMOL/L 98-107 N CL) CARBON DIOXIDE (test 29 MMOL/L 22-30 N code = CO2) GLUCOSE (test code = 242 MG/DL 74-106 H GLU) BLOOD UREA NITROGEN 30 MG/DL 7-17 H (test code = BUN) GLOMERULAR FILTRATION 47 Report ing units: RATE (test code = GFR) ml/mi n/1.73 m2 (Modified MDRD Formula)Referen ce Range: > or = 6 0 ml/min/1.73 m2 CREATININE (test code 1.10 MG/DL 0.52-1.04 H = CREAT) CALCIUM (test code = 9.5 MG/DL 8.4-10.2 N CA) CBC W/AUTO [id number] 21:32:00 Test Item Value Reference Range Interpretation Comments WHITE BLOOD CELL (test code = 11.3 K/MM3 3.8-9.8 H WBC) RED BLOOD CELL (test code = 3.71 M/MM3 3.58-4.97 N RBC) HEMOGLOBIN (test code = HGB) 11.1 G/DL 11.2-14.9 L HEMATOCRIT (test code = HCT) 35.4 % 33.2-43.5 N MEAN CELL VOLUME (test code = 95 fL 80.7-99.1 N MCV) MEAN CELL HGB (test code = MCH) 29.9 pg 27.0-34.1 N MEAN CELL HGB CONCETRATION 31.4 % 32.2-35.7 L (test code = MCHC) RED CELL DISTRIBUTION WIDTH 14.2 % 12.1-15.2 N (test code = RDW) PLATELET COUNT (test code = 131 K/MM3 129-368 N PLT) MEAN PLATELET VOLUME (test code 9.1 fl 7.4-10.4 N = MPV) NEUTROPHIL % (test code = NT%) 73.5 % 43-75 N IMMATURE GRANULOCYTE % (test 0.9 % 0.0-2.0 N code = IG%) LYMPHOCYTE % (test code = LY%) 17.4 % 14-44 N MONOCYTE % (test code = MO%) 7.0 % 4-13 N EOSINOPHIL % (test code = EO%) 1.1 % 0-6 N BASOPHIL % (test code = BA%) 0.1 % 0-2 N NUCLEATED RBC % (test code = 0.0 % 0-1.0 N NRBC%) NEUTROPHIL # (test code = NT#) 8.31 K/mm3 2.0-7.6 H IMMATURE GRANULOCYTE # (test 0.10 x10 3/uL 0-0.03 H code = IG#) LYMPHOCYTE # (test code = LY#) 1.97 K/mm3 1.0-3.8 N MONOCYTE # (test code = MO#) 0.79 K/mm3 0.1-0.8 N EOSINOPHIL # (test code = EO#) 0.12 K/mm3 0.0-0.2 N BASOPHIL # (test code = BA#) 0.01 K/mm3 0.0-0.2 N NUCLEATED RBC # (test code = 0.00 K/mm3 0.0-0.1 N NRBC#) LIPOPROTEIN LDL [id number] 19:21:00 Test Item Value Reference Range Interpretation Comments LIPOPROTEIN LDL DIRECT 126 mg/dL 100-129 N ===== (test code = LDLDIR) ======= ====R eference Interv al: mg/dL mmol/L-------- ----- ----- ----- ------Optimal < 100 <2.6Near/above optimal 100-129 2.6-3.3Borderli ne High 130-159 3.4-4.1High 160-189 4.1-4.9Very Hig h >=190 >=4.9========= This LDL result is a direct measurement.=== ===== = [id number] 19:21:00 Test Item Value Reference Range Interpretation Comments TROPONIN-I (test 0.720 NG/ML 0.012-0.033 CALLED TO Gideon Oakes & code = TROPI) READBACK ON AT 1901 Toshia Gilbert LIPOPROTEIN LDL [id number] 19:04:00 Test Item Value Reference Range Interpretation Comments LIPOPROTEIN LDL DIRECT (test code = mg/dL 100-129 LDLDIR) [id number] 19:04:00 Test Item Value Reference Range Interpretation Comments TROPONIN-I (test 0.720 NG/ML 0.012-0.033 HH CALLED TO Gideon Oakes & code = TROPI) READBACK ON AT 1901 Toshia Gilbert GLUCOSE BEDSIDE [id number] 12:58:00 Test Item Value Reference Range Interpretation Comments GLUCOSE BEDSIDE TESTING (test code 289 MG/DL 60-99 H = GLUBED) GLUCOSE BEDSIDE [id number] 08:36:00 Test Item Value Reference Range Interpretation Comments GLUCOSE BEDSIDE TESTING (test code 128 MG/DL 60-99 H = GLUBED) GLUCOSE BEDSIDE [id number] 20:27:00 Test Item Value Reference Range Interpretation Comments GLUCOSE BEDSIDE TESTING (test code 214 MG/DL 60-99 H = GLUBED) GLUCOSE BEDSIDE [id number] 16:59:00 Test Item Value Reference Range Interpretation Comments GLUCOSE BEDSIDE TESTING (test code 313 MG/DL 60-99 HH = GLUBED) GLUCOSE BEDSIDE [id number] 12:15:00 Test Item Value Reference Range Interpretation Comments GLUCOSE BEDSIDE TESTING (test code 141 MG/DL 60-99 H = GLUBED) GLUCOSE BEDSIDE [id number] 10:30:00 Test Item Value Reference Range Interpretation Comments GLUCOSE BEDSIDE TESTING (test code 139 MG/DL 60-99 H = GLUBED) GLUCOSE BEDSIDE [id number] 07:52:00 Test Item Value Reference Range Interpretation Comments GLUCOSE BEDSIDE TESTING (test code = 81 MG/DL 60-99 N GLUBED) GLUCOSE BEDSIDE [id number] 18:39:00 Test Item Value Reference Range Interpretation Comments GLUCOSE BEDSIDE TESTING (test code 336 MG/DL 60-99 HH = GLUBED) GLUCOSE BEDSIDE [id number] 12:50:00 Test Item Value Reference Range Interpretation Comments GLUCOSE BEDSIDE TESTING (test code 127 MG/DL 60-99 H = GLUBED) GLUCOSE BEDSIDE [id number] 12:49:00 Test Item Value Reference Range Interpretation Comments GLUCOSE BEDSIDE TESTING (test code 204 MG/DL 60-99 H = GLUBED) GLUCOSE BEDSIDE [id number] 20:45:00 Test Item Value Reference Range Interpretation Comments GLUCOSE BEDSIDE TESTING (test code 243 MG/DL 60-99 H = GLUBED) GLUCOSE BEDSIDE [id number] 16:05:00 Test Item Value Reference Range Interpretation Comments GLUCOSE BEDSIDE TESTING (test code 192 MG/DL 60-99 H = GLUBED) GLUCOSE BEDSIDE [id number] 11:02:00 Test Item Value Reference Range Interpretation Comments GLUCOSE BEDSIDE TESTING (test code 159 MG/DL 60-99 H = GLUBED) GLUCOSE BEDSIDE [id number] 07:43:00 Test Item Value Reference Range Interpretation Comments GLUCOSE BEDSIDE TESTING (test code 138 MG/DL 60-99 H = GLUBED) GLUCOSE BEDSIDE [id number] 04:20:00 Test Item Value Reference Range Interpretation Comments GLUCOSE BEDSIDE TESTING (test code 227 MG/DL 60-99 H = GLUBED) GLUCOSE BEDSIDE [id number] 04:20:00 Test Item Value Reference Range Interpretation Comments GLUCOSE BEDSIDE TESTING (test code 275 MG/DL 60-99 H = GLUBED) GLUCOSE BEDSIDE [id number] 20:27:00 Test Item Value Reference Range Interpretation Comments GLUCOSE BEDSIDE TESTING (test code 258 MG/DL 60-99 H = GLUBED) GLUCOSE BEDSIDE [id number] 17:10:00 Test Item Value Reference Range Interpretation Comments GLUCOSE BEDSIDE TESTING (test code 283 MG/DL 60-99 H = GLUBED) GLUCOSE BEDSIDE [id number] 05:52:00 Test Item Value Reference Range Interpretation Comments GLUCOSE BEDSIDE TESTING (test code 276 MG/DL 60-99 H = GLUBED) COMPREHENSIVE METABOLIC [id number] 21:59:00 Test Item Value Reference Range Interpretation Comments SODIUM (test code = NA) 138 MMOL/L 137-145 N POTASSIUM (test code = 4.4 MMOL/L 3.5-5.1 N K) CHLORIDE (test code = 106 MMOL/L 98-107 N CL) CARBON DIOXIDE (test 28 MMOL/L 22-30 N code = CO2) ANION GAP (test code = 8 MMOL/L 14-24 L GAP) GLUCOSE (test code = 272 MG/DL 74-106 H GLU) BLOOD UREA NITROGEN 32 MG/DL 7-17 H (test code = BUN) GLOMERULAR FILTRATION 53 Report ing units: RATE (test code = GFR) ml/mi n/1.73 m2 (Modified MDRD Formula)Referen ce Range: > or = 6 0 ml/min/1.73 m2 CREATININE (test code = 1.00 MG/DL 0.52-1.04 N CREAT) TOTAL PROTEIN (test 5.6 G/DL 6.3-8.2 L code = PROT) ALBUMIN (test code = 3.1 G/DL 3.5-5.0 L ALB) CALCIUM (test code = 8.8 MG/DL 8.4-10.2 N CA) BILIRUBIN TOTAL (test 0.2 MG/DL 0.2-1.3 N code = BILT) SGOT/AST (test code = 46 UNITS/L 14-36 H AST) SGPT/ALT (test code = 77 UNITS/L 9-52 H ALT) ALKALINE PHOSPHATASE 58 UNITS/L 38-126 N (test code = ALKP) [id number] 21:59:00 Test Item Value Reference Range Interpretation Comments PHOSPHOROUS (test code = PHOS) 2.4 MG/DL 2.5-4.5 L [id number] 21:59:00 Test Item Value Reference Range Interpretation Comments MAGNESIUM (test code = MAG) 2.1 MG/DL 1.6-2.3 N CBC W/AUTO [id number] 21:46:00 Test Item Value Reference Range Interpretation Comments WHITE BLOOD CELL (test code = 12.0 K/MM3 3.8-9.8 H WBC) RED BLOOD CELL (test code = 3.21 M/MM3 3.58-4.97 L RBC) HEMOGLOBIN (test code = HGB) 9.7 G/DL 11.2-14.9 L HEMATOCRIT (test code = HCT) 31.0 % 33.2-43.5 L MEAN CELL VOLUME (test code = 97 fL 80.7-99.1 N MCV) MEAN CELL HGB (test code = MCH) 30.2 pg 27.0-34.1 N MEAN CELL HGB CONCETRATION 31.3 % 32.2-35.7 L (test code = MCHC) RED CELL DISTRIBUTION WIDTH 14.3 % 12.1-15.2 N (test code = RDW) PLATELET COUNT (test code = 127 K/MM3 129-368 L PLT) MEAN PLATELET VOLUME (test code 9.6 fl 7.4-10.4 N = MPV) NEUTROPHIL % (test code = NT%) 78.0 % 43-75 H IMMATURE GRANULOCYTE % (test 0.4 % 0.0-2.0 N code = IG%) LYMPHOCYTE % (test code = LY%) 13.9 % 14-44 L MONOCYTE % (test code = MO%) 7.4 % 4-13 N EOSINOPHIL % (test code = EO%) 0.2 % 0-6 N BASOPHIL % (test code = BA%) 0.1 % 0-2 N NUCLEATED RBC % (test code = 0.0 % 0-1.0 N NRBC%) NEUTROPHIL # (test code = NT#) 9.32 K/mm3 2.0-7.6 H IMMATURE GRANULOCYTE # (test 0.05 x10 3/uL 0-0.03 H code = IG#) LYMPHOCYTE # (test code = LY#) 1.66 K/mm3 1.0-3.8 N MONOCYTE # (test code = MO#) 0.89 K/mm3 0.1-0.8 H EOSINOPHIL # (test code = EO#) 0.02 K/mm3 0.0-0.2 N BASOPHIL # (test code = BA#) 0.01 K/mm3 0.0-0.2 N NUCLEATED RBC # (test code = 0.00 K/mm3 0.0-0.1 N NRBC#) GLUCOSE BEDSIDE [id number] 21:36:00 Test Item Value Reference Range Interpretation Comments GLUCOSE BEDSIDE TESTING (test code 268 MG/DL 60-99 H = GLUBED) GLUCOSE BEDSIDE [id number] 21:36:00 Test Item Value Reference Range Interpretation Comments GLUCOSE BEDSIDE TESTING (test code 223 MG/DL 60-99 H = GLUBED) GLUCOSE BEDSIDE [id number] 21:36:00 Test Item Value Reference Range Interpretation Comments GLUCOSE BEDSIDE TESTING (test code 147 MG/DL 60-99 H = GLUBED) GLUCOSE BEDSIDE [id number] 21:36:00 Test Item Value Reference Range Interpretation Comments GLUCOSE BEDSIDE TESTING (test code 194 MG/DL 60-99 H = GLUBED) - XR CHEST [id number] 20:15:00 Patient Name: SUSANA YAO Unit No: [id number] EXAMS: CPT CODE: [id number] XR CHEST 1V 00232 AP VIEW OF THE CHEST LOCATION: B2 [...] Annalisa Avelar (RT) Transcrpt Date/Tm/Trnsp: 04/14/2018 (2014) [place].JSL Orig Print D/T: S: 04/14/2018 (2017) [facility] NAME: BUD [id number] PHYS: [place] [address] : 1930 AGE: 88 SEX: F LOC: Z.SI11 A PHONE #: [phone] EXAM DATE: 04/14/2018 STATUS: ADM IN FAX #: [phone] RADIOLOGY NO: PAGE 1 Signed ReportGLUCOSE BEDSIDE [id number] 06:58:00 Test Item Value Reference Range Interpretation Comments GLUCOSE BEDSIDE TESTING (test code 230 MG/DL 60-99 H = GLUBED) CHEM [id number] 06:51:0090[facility] [id number] 06:51:0018 [facility] [id number] 06:51:000.74[facility] PANEL 2018-03-13 06:51:75081Lawfyhhm HermannCHEM [id number] 06:51:003.4[facility] [id number] 06:51:01515Zrwwpzjn HermannCHEM [id number] 06:51:0026[facility] [id number] 06:51:0010.4[facility] [id number] 06:51:007.1[facility] [id number] 06:51:0073 [facility] [id number] 06:51:001.9[facility]annCHEM PANEL 2018-03-13 06:51:003.1[facility] BvxwipeLQFPSBKGDV4160-20-55 06:51:0056.5[facility] ZssgyvpEEXGWYUNLD8872-89-74 06:51:0031.5[facility] BdseminDTCOLBSZFC7131-08-29 06:51:009.5[facility] UpguumoXMKFCFYDEZ3342-54-77 06:51:001.6[facility] LVDJISFAXS3495-52-93 06:51:000.9[facility] KvfxywiAQMDDNJSZL0898-42-06 06:51:004.8 [facility] PhtiwmvNGPJQYEHNP2107-64-34 06:51:002.7[facility] HermannHEMATOLOGY 2018-03-13 06:51:000.8[facility] JpowfkbPSTRNFVUPY9389-81-69 06:51:000.1[facility] IklsailUEANWRGRVJ1846-14-99 06:51:000.1[facility] YgtctwkTLNLPZGLNI7331-39-46 06:51:008.5[facility] HtguawdKBLBGPZWRL3394-17-59 06:51:003.83[facility] SJMNGTMLKE8066-61-96 06:51:0011.9[facility] JtrsjiaHYPRQOXWKG3463-22-39 06:51:00 34.7[facility] JaojwjoMUTGAUMCTJ1615-80-92 06:51:0090.7[facility] HermannHEMATOLOGY 2018-03-13 06:51:00 Test Item Value Reference Range Interpretation Comments MCH (test code = MCH) 31.1 pg 27.0-31.0 [facility] SjoecjtCJXWFNTTCO0692-51-35 06:51:0034.3[facility] HermannHEMATOLOGY 2018-03-13 06:51:0014.2[facility] BrdvkqoKYPGHGWCDV5597-52-07 06:51:10696Yeskdhqu QwadmirZAYCUIGUYP5573-29-42 06:51:008.2[facility] HermannPARATHYROID PROFILE 2018-03-13 06:51:001.04[facility] HermannPARATHYROID PSYCAAL1983-68-15 06:51:00 1.06[facility] HermannTETRACYCLINE:SUSC:PT:ISOLATE:ORDQN:HQG1130-99-23 03:11:00 Escherichia coliMemorial HermannURINE AND SUAVQ1907-33-95 02:07:00Light Yellow *NA*(03/12/18 8:07 PM)[facility] COVVJ6014-22-20 02:07:00Clear (03/12/18 8:07 PM)[facility] GBTBA4442-38-18 02:07:00 Test Item Value Reference Range Interpretation Comments UA Spec Grav (test code = UA Spec 1.014 1 Grav) [facility] UXUPJ1959-09-10 02:07:00 Test Item Value Reference Range Interpretation Comments UA pH (test code = UA pH) 6.0 1 5.0-8.0 [facility] FKXGL4401-35-03 02:07:00Negative *NA*(03/12/18 8:07 PM) [facility] PKGRY9293-76-19 02:07:00Negative (03/12/18 8:07 PM) [facility] DBDKW8380-68-15 02:07:00Positive *ABN*(03/12/18 8:07 PM)[facility] LONJJ4049-35-21 02:07:00Moderate *ABN*(03/12/18 8:07 PM)[facility] CTNSL4011-66-45 02:07:0022[facility] KIVRV1613-57-53 02:07:001[facility] HermannBLOOD BANK JUZDDZC2702-71-73 21:53:00Negative (03/12/18 3:53 PM)[facility]annCHEM LRRAL8828-08-29 21:53:00 2.0[facility] HermannCHEM KTZIP1583-49-55 21:53:004.2[facility] HermannCHEM PANEL 2018-03-12 21:53:009.2[facility]annCHEM VXLWU2806-57-48 21:53:0040[facility]annCHEM LCSUA5579-14-61 21:53:0025[facility]annCHEM TBQFD1504-72-93 21:53:96757Rpyoaqla HermannCHEM MNDQC3888-15-70 21:53:004.7[facility] HermannCHEM ILMNP4218-72-52 21:53:92125Vuhxihbl HermannCHEM ZDIMU5295-31-38 21:53:001.22 [facility]annCHEM GBSTL4630-50-58 21:53:0029[facility] HermannCHEM PANEL 2018-03-12 21:53:49231Jlulkmpg HermannCHEM HCNZM5654-31-07 21:53:0014.7[facility] ZzipglsMHIURKRUSGWK4432-11-47 21:53:0014.7[facility] LqhewhaKFSTROROYSFN9757-40-30 21:53:51884Xnsmyeje HuzquodFUAZRUJVRMEJ1032-81-24 21:53:0029[facility] KVTLMQVLETEH6765-25-38 21:53:001.22[facility] YszuigxMCZGDNBFUBRA1920-42-31 21:53:24036Ejedxxld LiqezulVDJHRZDCMGHC3960-57-31 21:53:004.7[facility] VXYKMVYXBIEX8603-64-32 21:53:54456Ybbtdraw LjraissJJGORRVLULJR8156-38-48 21:53:0025[facility] HirsaabYTVXPZVSVIIC6499-03-22 21:53:009.2[facility] JOORUQUXASIH8814-06-77 21:53:0040[facility] IlfcofiJRLBWEAEMG3029-32-51 21:53:00 8.9[facility] DkmrbmnXMLDLTOKUC4711-17-21 21:53:004.32[facility]annHEMATOLOGY 2018-03-12 21:53:0013.3[facility] OryohzwNYOZGWTQEJ7595-99-88 21:53:0039.4[facility] QnixpfuTCBECUFERY4241-28-89 21:53:0091.0[facility] LvtaegvMBVBSMWSWD5958-24-78 21:53:00 Test Item Value Reference Range Interpretation Comments MCH (test code = MCH) 30.7 pg 27.0-31.0 [facility] XbxctjcOXPLRZATDQ1374-16-74 21:53:0033.7[facility] HermannHEMATOLOGY 2018-03-12 21:53:0014.1[facility] WkefsmhDHRORZHXGU7689-23-97 21:53:81341Vyodmkmj UgodcgeAFFEVVXIEQ5734-47-46 21:53:008.5[facility] VuikuluJIMDODIPRQ3669-37-54 21:53:00 Test Item Value Reference Range Interpretation Comments PT (test code = PT) 13.0 s 12.0-14.7 [facility] KoifoobPRCDSAHZYT1343-37-50 21:53:00 Test Item Value Reference Range Interpretation Comments INR (test code = INR) 1.00 1 0.85-1.17 [facility] ZttzhvuYZQHKZGJOU2463-84-90 21:53:0080.1[facility] HermannHEMATOLOGY 2018-03-12 21:53:0014.9[facility] EnncnxrBIBRBMLQSO4401-22-20 21:53:004.4[facility] AgmzqtiUEHHEWOYXY6333-37-96 21:53:000.2[facility] DcwohytGJXGQQDQMK3029-52-44 21:53:000.4[facility] DfcgpcfUKYBWMVGCB3403-47-50 21:53:007.1[facility] APCPFTFAHJ3072-28-00 21:53:001.3[facility] KtsxmsqAGNHBOHRLL1839-81-10 21:53:000.4 [facility] HermannPARATHYROID QJSUSCE1855-45-75 21:53:000.93[facility] PARATHYROID SMZDOFL2248-29-69 21:53:000.96[facility] HermannCHEM TTXEF9044-38-86 07:41:003.4[facility]annCHEM LKNLM7265-17-54 07:41:0048[facility]annCHEM ASOUX9035-88-76 07:41:73869Vslwpzqy HermannCHEM POYMO9414-30-67 07:41:001.06 [facility]annCHEM LLPVI6874-93-93 07:41:0030[facility]annCHEM PANEL 2017-09-22 07:41:0016.2[facility] HermannCHEM PABZD9010-50-79 07:41:008.9[facility] HermannCHEM UIVYT5341-17-84 07:41:63342Fsnvqhpw HermannCHEM JTOVW0202-62-02 07:41:004.2[facility] HermannCHEM JFKWA7146-22-46 07:41:66698Qwngqndf HermannCHEM DBYJJ3719-41-95 07:41:0016[facility]annCHEM NSCEO2923-30-02 07:41:002.1 [facility]annCHEM KISNJ3688-78-12 07:41:008.9[facility]annHEMATOLOGY 2017-09-22 07:41:00 Test Item Value Reference Range Interpretation Comments INR (test code = INR) 1.03 1 0.85-1.17 [facility] OmbqheyKIJOLRDECA7339-68-46 07:41:00 Test Item Value Reference Range Interpretation Comments PTT (test code = PTT) 38.7 s 22.9-35.8 [facility] CehpuqgBRIZRENZNB3600-32-82 07:41:00 Test Item Value Reference Range Interpretation Comments PT (test code = PT) 13.5 s 12.0-14.7 [facility] LgbaoaqJGRRGVGYNN0105-31-26 07:41:0031.7[facility] HermannHEMATOLOGY 2017-09-22 07:41:008.6[facility] LumoochJVATSFNLBT9339-32-02 07:41:006.4[facility] ScesgiaBAAKDDWFZA9320-02-90 07:41:001.0[facility] MktwrraWKOCQWJTLP7463-77-41 07:41:004.4[facility] IyrffkaMZLSYFPYNY4337-08-07 07:41:002.7[facility] LMAKAICJFO1069-47-61 07:41:000.5[facility] QroqjnaSZNEDRDXMB4149-01-54 07:41:000.1 [facility] TjjqjlcJBEYBJMTWU6672-27-47 07:41:000.7[facility] HermannHEMATOLOGY 2017-09-22 07:41:0052.3[facility] OlzkgcgNMYCBMNCHZ2503-93-47 07:41:003.63[facility] PxqmztdKJAPWBXTOF3841-78-92 07:41:0011.0[facility] BvafcgnERTLUBDGFH7284-30-71 07:41:0033.3[facility] HgudgdnQRYGGFLMAP1170-42-37 07:41:0091.7[facility] FBKLOSSGBM1482-55-35 07:41:00 Test Item Value Reference Range Interpretation Comments MCH (test code = MCH) 30.2 pg 27.0-31.0 [facility] OsfmscaGAZJYMNKQF8873-06-89 07:41:0014.7[facility] HermannHEMATOLOGY 2017-09-22 07:41:0033.0[facility] WpqgobgSIOXZMGVUB3116-39-12 07:41:008.7[facility] XaznuzlDZUIKDBFAG6275-41-65 07:41:99034Vmtsovjq AgcgjidLVFBNZWTUN1125-59-77 07:41:008.5[facility] HermannCHEM MYMWX0351-68-60 11:16:0046[facility] HermannCHEM CHZYT6161-69-21 11:16:0033[facility] HermannCHEM PINUL3221-19-66 11:16:008.8 [facility]annCHEM ZUVYM0356-95-90 11:16:003.9[facility] HermannCHEM PANEL 2017-09-21 11:16:90163Bpmkvayq HermannCHEM VZYFA9303-15-09 11:16:30181Njntoaxx HermannCHEM BYPNK5736-25-44 11:16:45748Xcwttoqi HermannCHEM PUXEW5474-51-35 11:16:0018[facility] HermannCHEM JZJIQ4750-06-80 11:16:001.09[facility] HermannCHEM SJRJJ2866-36-50 11:16:0010.9[facility] HermannCHEM WGLTV2896-95-52 11:16:003.7 [facility]annCHEM ZYWCO7778-03-73 11:16:002.3[facility]annHEMATOLOGY 2017-09-21 11:16:000.6[facility] VnnftoqPWAQRWBHKE8031-68-98 11:16:000.1[facility] LcoamxgRZVMPPFOVU2321-50-50 11:16:004.5[facility] ZehamwoVQOFSTSDBG5437-18-68 11:16:001.9[facility] QuqfssmUHKRTXXWKI2967-79-65 11:16:000.8[facility] XEHWWBVMXP3927-94-22 11:16:000.7[facility] VwcavojLMZWMMJVLP4160-94-30 11:16:00 25.1[facility] BhsbqihSUWDTSTXSA0214-91-26 11:16:0058.1[facility] HermannHEMATOLOGY 2017-09-21 11:16:008.8[facility] VmawtfaBVDEYEXCVW2187-98-29 11:16:007.2[facility] XoqssadXBOPECEVRG4555-10-72 11:16:04017Rmefrjho NziworhKQXTAVMCSD9271-19-59 11:16:008.3[facility] IymkbwkRCYFWUSHDF6439-49-17 11:16:0032.4[facility] BDJJBKWHHX6706-21-57 11:16:0033.5[facility] AiyczlcSKMFPAOLXA1601-33-22 11:16:00 14.6[facility] YxdltquDIJUNLOHAE9645-95-71 11:16:0090.5[facility] HermannHEMATOLOGY 2017-09-21 11:16:00 Test Item Value Reference Range Interpretation Comments MCH (test code = MCH) 30.4 pg 27.0-31.0 [facility] UznakedSXCTQHSCLM7221-71-31 11:16:0010.9[facility] HermannHEMATOLOGY 2017-09-21 11:16:003.58[facility] MloafvzAZWCTHPMFQ1001-62-83 11:16:007.8[facility] BdgdmxvLPKYFSRREV3540-93-05 11:16:00 Test Item Value Reference Range Interpretation Comments INR (test code = INR) 1.06 1 0.85-1.17 [facility] QobghdhAITNUPXOZN2925-24-96 11:16:00 Test Item Value Reference Range Interpretation Comments PT (test code = PT) 13.8 s 12.0-14.7 [facility]annCHEM WESKN3139-28-68 08:48:0044[facility] HermannCHEM PANEL 2017-09-20 08:48:001.14[facility] HermannCHEM BGHRQ3657-35-23 08:48:15399Vrsyeqir HermannCHEM XFRXN3970-69-11 08:48:003.7[facility] HermannCHEM OHWHN1400-68-17 08:48:92945Xgflbeha HermannCHEM VFCEN9335-63-15 08:48:0017[facility] HermannCHEM UZUPG8855-73-20 08:48:05811Kdefryci HermannCHEM BFEZM5140-96-06 08:48:0031 [facility] HermannCHEM XLAXP9294-98-12 08:48:0012.7[facility] HermannCHEM PANEL 2017-09-20 08:48:002.2[facility] HermannCHEM TCATG2990-59-41 08:48:003.3[facility] UasyydzLFZBBUNRKT9685-79-42 08:48:00 Test Item Value Reference Range Interpretation Comments PTT (test code = PTT) 34.2 s 22.9-35.8 [facility] OtvcfalVOAFBMIKLD7320-35-59 08:48:00 Test Item Value Reference Range Interpretation Comments PT (test code = PT) 13.3 s 12.0-14.7 [facility] TmbmukgXNQISXHIHB6255-71-00 08:48:00 Test Item Value Reference Range Interpretation Comments INR (test code = INR) 1.01 1 0.85-1.17 [facility] HaturxvLIMZBFXFNW2179-59-44 08:48:67074Lpmubygp HermannHEMATOLOGY 2017-09-20 08:48:008.6[facility] AbhbwvpJAXQDGSNEA7938-61-31 08:48:0090.4[facility] ZbdpnhjGRVVYVVVQZ4188-28-82 08:48:008.5[facility] GjqsmujKQTSNIBNST1555-09-62 08:48:00 Test Item Value Reference Range Interpretation Comments MCH (test code = MCH) 29.9 pg 27.0-31.0 [facility] UamxablVYNTKTJRGL7880-57-54 08:48:0033.0[facility] HermannHEMATOLOGY 2017-09-20 08:48:0014.7[facility] QrsmlanYKYCYCCQSP7040-78-64 08:48:0011.4[facility] YztemywQWGFULYQRX0629-57-37 08:48:0034.6[facility] DuwpnzwYWUATKXAOY8300-10-66 08:48:003.82[facility] KrcvnoxRQGZZNNJPN5243-63-11 08:48:000.7[facility] QLQBNZGPCV4503-24-67 08:48:002.3[facility] YeagatbADCQCMZJUZ5061-28-68 08:48:000.1 [facility] OuprrztVSVRHAJVQK0126-23-27 08:48:000.4[facility] HermannHEMATOLOGY 2017-09-20 08:48:0027.5[facility] UtodaxmAGLNOBRMAC2457-48-13 08:48:000.9[facility] MdzlvzcVYAXTRQYWF0433-08-32 08:48:008.0[facility] GmzvgmzLNSJBNSFPG8692-11-74 08:48:005.1[facility] AcaqylqGBIIUFHYVV7702-09-11 08:48:004.3[facility] WKXAJJEHRT5392-86-12 08:48:0059.3[facility] HermannPARATHYROID NLTJGAW5857-27-17 08:48:001.10[facility] HermannPARATHYROID HPUZMBI9159-22-19 08:48:001.10[facility] FkiupkhFFKNXJYQYA4239-51-15 10:29:00 Test Item Value Reference Range Interpretation Comments PTT (test code = PTT) 32.5 s 22.9-35.8 [facility] AGKJN9140-33-11 21:49:00 Test Item Value Reference Range Interpretation Comments UA Spec Grav (test code = UA Spec 1.014 1 Grav) [facility] TQXSJ8042-36-84 21:49:00 Test Item Value Reference Range Interpretation Comments UA pH (test code = UA pH) 7.0 1 5.0-8.0 [facility] KZDGP1275-38-26 21:49:00Clear (09/18/17 4:49 PM)[facility] IWLGA3251-98-79 21:49:00Dark Yellow *NA*(09/18/17 4:49 PM) [facility] JHYIQ6503-19-64 21:49:005[facility] CDNCH3471-83-07 21:49:005[facility] TFCYK6144-53-03 21:49:00<1 [facility] XRDFT1635-73-59 21:49:00Small *ABN*(09/18/17 4:49 PM) [facility] VFUPL7520-73-68 21:49:00Negative (09/18/17 4:49 PM) [facility] GSUWU3076-53-65 21:49:00Moderate *ABN*(09/18/17 4:49 PM) [facility] FWOLA7821-93-98 21:49:00Negative *NA*(09/18/17 4:49 PM) [facility] HermannMOLECULAR CBXGPUFINN4007-27-03 13:10:00Negative (09/16/17 8:10 AM) [facility] XHYOT3495-63-76 13:10:00Negative (09/16/17 8:10 AM) [facility] MJOHV0909-01-85 13:10:00None Seen (09/16/17 8:10 AM) [facility]annAMPICILLIN+SULBACTAM:SUSC:PT:ISOLATE:ORDQN:JTM6260-08-19 22:10:00Proteus mirabilisMemorial HermannURINE AND EJNRK0499-08-59 22:10:00 >182[facility] GOQYZ2056-69-74 22:10:00Performed *NA*(09/15/17 5:10 PM)[facility] JLBSC1888-41-73 22:10:00Large *ABN*(09/15/17 5:10 PM)[facility] XNLCX4598-07-51 22:10:00Positive *ABN*(09/15/17 5:10 PM)[facility] GWRHW7657-32-27 22:10:00Negative *NA*(09/15/17 5:10 PM)[facility] VMZGJ5051-41-71 22:10:00Negative (09/15/17 5:10 PM)[facility] NJHEO5111-18-43 22:10:00Slight *ABN*(09/15/17 5:10 PM)[facility] FIZRG4538-55-08 22:10:00 Test Item Value Reference Range Interpretation Comments UA Spec Grav (test code = UA Spec 1.018 1 Grav) [facility] XPSTR0802-40-61 22:10:00 Test Item Value Reference Range Interpretation Comments UA pH (test code = UA pH) 7.5 1 5.0-8.0 [facility] JXJXS0204-11-54 22:10:00Yellow *NA*(09/15/17 5:10 PM) [facility]annBACTERIAL - YBRCHLNT8293-92-79 09:47:00Negative (09/15/17 4:47 AM) [facility]BL[facility]OD BANK QVWKOPU7435-28-01 09:47:00Negative (09/15/17 4:47 AM) [facility]annCHEM TJPKS0852-19-77 09:47:000.9[facility] HermannPARATHYROID TOGOOWZ9819-85-14 09:47:001.05[facility] HermannPARATHYROID BIXKCKZ1490-16-90 09:47:001.02[facility] HermannSPECIAL CTNACCMLI5699-80-24 09:47:007.2[facility] HermannCHEM NZRUS8405-65-92 09:15:001.9[facility] HermannCHEM ACPTF4450-03-83 09:15:003.1[facility] HermannCHEM UQOQA3952-59-30 09:15:000.7[facility] HermannCHEM FKRVG7839-76-71 09:15:000.4[facility] HermannCHEM ZDFMG1608-78-01 09:15:000.2 [facility]annCHEM SZMDP2942-16-70 09:15:003.3[facility] HermannCHEM PANEL 2014-08-04 09:15:000.6[facility] HermannCHEM SHUED8151-77-02 09:15:0038[facility] HermannCHEM JAEVR6404-23-86 09:15:0012[facility] HermannCHEM NYSWZ5275-05-03 09:15:0018[facility] HermannCHEM HBHXF3419-21-88 09:15:002.4[facility]annCHEM SQDPS0359-55-72 09:15:005.7[facility] IfzvytwGYMIFDGKJUFD4823-60-96 09:15:0011.2 [facility] MjoblqdDIZFWYRGILEP1040-47-93 09:15:0035[facility] HermannELECTROLYTES 2014-08-04 09:15:0029[facility] FvwdmbkGTBEMNOKMPXU3795-41-02 09:15:009.0[facility] QfaozzxBIUSSDVQKXRP8827-79-78 09:15:36661Fpzznszw PbncewqQPFGEIHXUSMQ9744-01-14 09:15:0014[facility] FexejehRKFAHUPCNATO4867-07-70 09:15:001.4[facility] GEWULOQXMNVZ1207-64-04 09:15:004.2[facility] RkjlscxFPWWUVLJMMNZ8939-43-39 09:15:59133Betpihth ApqqrwhHCXAHZOWIXBL9279-29-72 09:15:18680Bzadbprf [facility] ZTCHWXDCWH4601-61-00 09:15:0033.6[facility] DryboqiYQZKCYWFXB5124-86-22 09:15:00 13.9[facility] KgcjjjfRKKLAQLIKG9892-46-74 09:15:008.0[facility]annHEMATOLOGY 2014-08-04 09:15:83903Tvlagqey IbjeyksWKRFAKEELR1394-54-61 09:15:002.87[facility] GytqonpDFATCTACFT3206-43-08 09:15:009.0[facility] AsbefjwIYBZEZXMVW4334-51-51 09:15:0026.8[facility] HrkossyNGOZEWYIUD1444-12-77 09:15:0093.6[facility] GNJLJBZXTO4824-87-25 09:15:00 Test Item Value Reference Range Interpretation Comments MCH (test code = MCH) 31.4 pg 27.0-31.0 [facility] PrcdloaDIKWIRWKBA5900-61-77 09:15:007.1[facility] HermannHEMATOLOGY 2014-08-04 09:15:0030.8[facility] WkpqptyTCXGULDBBD0064-24-96 09:15:009.9[facility] ExcomzhZEDVBKKOQQ3767-56-80 09:15:005.0[facility] DmfvihfRFKWNTSSMS5560-52-29 09:15:000.6[facility] VxwvdlaXRSFXRKLCU8541-17-58 09:15:0053.7[facility] YKMSGLZUNL1772-26-62 09:15:000.4[facility] HrumipqGLFFTGVGBZ7642-12-21 09:15:000.7 [facility] OettpoxLJBORKTCTL9120-19-76 09:15:003.8[facility] HermannHEMATOLOGY 2014-08-04 09:15:002.2[facility] HermannPARATHYROID DEPNRFQ7539-83-35 09:15:001.17 [facility]annPARATHYROID TPLCVZZ3221-55-33 09:15:001.18[facility] HermannCHEM XKMRE1629-16-45 09:30:001.9[facility] HermannCHEM JOICH0404-00-55 09:30:002.7 [facility] YoojaeuNCXBVPCKRIFK1224-05-39 09:30:0011.2[facility] HermannELECTROLYTES 2014-08-03 09:30:61949Ohqmxwfk VewjxsjSZQITRWCBCJI1670-96-06 09:30:0028[facility] QobcgobXTSPSJVWRMWS1335-07-97 09:30:0011[facility] AcxmvopCJXCGWJNWYYB9749-28-45 09:30:0042[facility] QrjrtdlZHWFCINNEEAF9626-92-68 09:30:008.4[facility] FHFYIQKIFWSQ7633-77-38 09:30:01319Bqlldjld PvpkaktHUMJAYREFWFF3245-32-45 09:30:004.2[facility] XlnkgqwBTNMFOOWGKXT8060-37-25 09:30:13255Lxmtmlpd [facility] QQZGBAXMDEDS4153-36-85 09:30:001.2[facility] MjxjcvfDNDITQBCUK3527-83-56 09:30:00 56.7[facility] QolhasqMCBZTPQDPE8467-47-25 09:30:004.3[facility]annHEMATOLOGY 2014-08-03 09:30:000.8[facility] HdzvudsWHVLMZQGRL3583-85-06 09:30:009.1[facility] SqdhhpxSGQVAKGBRH1198-85-83 09:30:0029.0[facility] TdlyhmfRMECFHJRVY5643-26-68 09:30:004.4[facility] MdnawnaAAJAMGSZHV0936-18-81 09:30:000.1[facility] QSZEGRNSNQ5599-69-48 09:30:002.2[facility] QemhomdVQTPTRYQLZ2099-43-17 09:30:000.3 [facility] FwjhbqqTPRYYZVCKK6753-59-98 09:30:000.7[facility]annHEMATOLOGY 2014-08-03 09:30:002.64[facility] MxolkqsYHJTHYSQCT2926-09-21 09:30:007.6[facility] SjmygtqZPVQOTNVQS5567-89-01 09:30:0024.7[facility] TdxxxbbRUCKXEVGGH9800-34-27 09:30:008.3[facility] HqbpiucWAPVFMEGID5269-53-95 09:30:0033.8[facility] CQZLERAMBQ0896-64-15 09:30:00 Test Item Value Reference Range Interpretation Comments MCH (test code = MCH) 31.6 pg 27.0-31.0 [facility] YpgwzgtUZNKYZFZXT3332-74-07 09:30:19986Yzszmtph HermannHEMATOLOGY 2014-08-03 09:30:0013.5[facility] WfohpgeSMNDGKVGMU8340-19-72 09:30:008.0[facility] TysclxdBYXYRNSMTM9915-16-55 09:30:0093.5[facility]annPARATHYROID PROFILE 2014-08-03 09:30:001.14[facility] HermannPARATHYROID INOBQUG9001-52-19 09:30:00 1.14[facility] XhgopgkZTXPRRTHUW9704-13-61 06:30:002.74[facility]annHEMATOLOGY 2014-08-02 06:30:008.6[facility] ReraoyzROTMRLNZOR3000-18-24 06:30:0033.3[facility] GdofjriADAAHFJPOD0855-76-32 06:30:0013.7[facility] VwhrpmoAKMJWSEQVL2343-76-51 06:30:00 Test Item Value Reference Range Interpretation Comments MCH (test code = MCH) 31.3 pg 27.0-31.0 [facility]annPARATHYROID IYUXGBA0518-03-15 06:30:001.11[facility] PARATHYROID QPYMIHD5292-76-75 06:30:001.14[facility] HermannCHEM HPCGX6276-60-53 06:30:001.9[facility] HermannCHEM TCZGE4489-31-59 06:30:001.8[facility] TZNMWVNCQFEU0189-83-44 06:30:0013.0[facility] JvysdzlUBRLBUKWYJAM4401-90-73 06:30:0042[facility] NbjexthBENHEJNRUQPN2138-83-04 06:30:007.7[facility] EGKXNVWHPAKG5902-94-36 06:30:0025[facility] IbrhifoRTCWYRFXYLEH9304-73-27 06:30:00 109[facility] AmkedaoABMSOJUSUPYY0943-08-76 06:30:004.0[facility] UQVGHDDSMPOW4337-21-11 06:30:45587Twfotxpl OntdvdtJVUYCHJMKTFS6198-11-43 06:30:0011[facility] VurshgtDMCWEASGKDDU4695-34-05 06:30:08875Lvrzxpqd [facility] YABKNORYHYQE5454-03-57 06:30:001.2[facility] GravnkfYSHUWRHBUN4298-68-07 06:30:00 0.3[facility] NroomliIMTZCRCTCY8476-00-29 06:30:002.3[facility] HermannHEMATOLOGY 2014-08-02 06:30:000.7[facility] VuzhdtnGADIGLRPQT9930-08-93 06:30:0023.7[facility] PhlffroKQKCSFNYYW6508-44-36 06:30:007.6[facility] FgnvzbvVUSSGAEIZK3648-41-31 06:30:002.6[facility] EssgxsfGCOOUWNGES6154-01-49 06:30:000.2[facility] TTVVHWLEWH4264-30-66 06:30:006.4[facility] CszsafaENJVQECUKU4690-56-84 06:30:00 65.9[facility] FjpactvBDGYNVMZIG2364-80-52 06:30:008.0[facility] HermannHEMATOLOGY 2014-08-02 06:30:27370Ixrnlraw IvmtaneMEDGLZKTGI6979-36-92 06:30:0025.8[facility] OsvuzzhTRZAUUPWNZ4695-65-50 06:30:0093.9[facility] LsswbeyQZFXSYCVRT5216-51-29 06:30:009.7[facility] HermannMOLECULAR PMDALSTKGF5871-48-07 20:20:00Negative 11(07/31/14 3:20 PM)[facility] HermannCARDIAC IDXYMTK3363-78-79 09:03:139072 [facility] SbixxkpUWUIJSICXE1435-11-94 09:03:000.1[facility] HermannBLOOD BANK TUFSRZO7204-38-44 14:17:00Product available (07/30/14 9:17 AM)[facility] B[facility] EQRPGYX2773-70-31 14:17:00Product available (07/30/14 9:17 AM)[facility] HermannCHEM QEJEF4933-22-31 10:15:000.4[facility] HermannCHEM NSXTH8701-82-93 10:15:000.5[facility] HermannCHEM DAIIN3804-08-70 10:15:000.1[facility] HermannCHEM UZQMP2545-63-51 10:15:0020[facility] HermannCHEM YIIYQ7791-80-25 10:15:001.0 [facility]annCHEM VRBNL2901-48-31 10:15:003.1[facility] HermannCHEM PANEL 2014-07-30 10:15:006.2[facility] HermannCHEM GLVUH2031-30-36 10:15:003.1[facility] HermannCHEM MXDAW1817-55-74 10:15:0040[facility] HermannCHEM ONXYA5922-01-69 10:15:0043[facility] ItttpwwQQXCKYZFBV9599-21-29 10:15:000.1[facility] HermannLIPIDS 2014-07-30 10:15:0074[facility] NeojbstBJWZUT1959-71-86 10:15:0062[facility] GSOFAS9038-34-40 10:15:90729Sgpdqdci KitzzmlCKFFQG2774-36-12 10:15:26160Sxkbhhbh MvdifgzNHXERY2860-97-31 10:15:0055[facility] RtrbtqzHOVMFK1469-62-74 10:15:003.47 [facility]BL[facility] VRUMFBZ9878-08-62 09:00:00Product available (07/30/14 4:00 AM)[facility]BL[facility] EPPOOYV6501-42-06 09:00:00Product available (07/30/14 4:00 AM)[facility]BL[facility] EBGUNYB6896-98-47 09:00:00Product available (07/30/14 4:00 AM)[facility]BL[facility] JGPTMSK8150-80-72 20:21:00 Negative (07/29/14 3:21 PM)[facility]annCHEM [id number] 20:21:003.6 [facility] UwvlgqmAEOKFYADOK5824-34-60 20:21:00 Test Item Value Reference Range Interpretation Comments PTT (test code = PTT) 25.8 s 22.9-35.8 [facility] XhcumiyABVWIXWGTK9033-46-67 20:21:001.01[facility]annHEMATOLOGY 2014-07-29 20:21:00 Test Item Value Reference Range Interpretation Comments PT (test code = PT) 13.3 s 12.0-14.7 [facility] YqoxrhjFJJJIBCRTB8976-16-26 20:21:0099[facility]annIMMUNOLOGY 2014-07-29 20:21:0025[facility]annPARATHYROID [id number] 20:21:0066.8 [facility]annCARDIAC [id number] 07:52:026911Dkqpadvx HermannURINE AND [id number] 18:10:00Negative (07/28/14 1:10 PM)[facility] [id number] 18:10:00Negative *NA*(07/28/14 1:10 PM)[facility] [id number] 18:10:00Negative (07/28/14 1:10 PM)[facility] [id number] 18:10:00Negative (07/28/14 1:10 PM)[facility] [id number] 18:10:00Clear (07/28/14 1:10 PM)[facility] STOOL 2014-07-28 18:10:00Light Yellow *NA*(07/28/14 1:10 PM)[facility] [id number] 18:10:006.0[facility] [id number] 18:10:00 1.006[facility]annSPECIAL [id number] 09:13:008.1[facility]annCHEM [id number] 20:25:000.5[facility]annCHEM [id number] 20:25:0041 [facility]annCHEM [id number] 20:25:0025[facility]annCHEM PANEL 2014-07-27 20:25:0021[facility]annCHEM [id number] 20:25:003.2[facility]annCHEM ZTBBR0501-55-93 20:25:006.0[facility]annCHEM [id number] 20:25:001.1[facility]annCHEM [id number] 20:25:002.8[facility]annCHEM [id number] 20:25:0016[facility] MnrbzriHQCKHJCHNU3590-08-14 20:25:00 Test Item Value Reference Range Interpretation Comments PTT (test code = PTT) 27.7 s 22.9-35.8 [facility] PzayzfwQFMIJTDLHA8303-88-75 20:25:00 Test Item Value Reference Range Interpretation Comments PT (test code = PT) 13.7 s 12.0-14.7 [facility] QbzdpgwUDWFRZSSQB6112-60-73 20:25:001.05[facility]
[2020-05-23] MEDS ORDERED: NA CHLORIDE 0.9% 1,000 ML ONE (04:49)
[2020-05-23 05:25] LABS: Absolute Lymphocytes (CBC) 2.6 K/uL (0.7-4.9); Basophils % 0.9 % (0-1.3); Hematocrit 37.1 % (36.0-45.0); MPV 7.8 fL (7.6-11.3); RBC Red Blood Cell Count 3.97 M/uL (3.86-4.86)
[2020-05-23 05:35] LABS: Protime INR 0.95
[2020-05-23] MEDS ORDERED: ONDANSETRON 4 MG/2 ML VIAL ONE ×3 (05:37→16:04)
[2020-05-23] MEDS ORDERED: FENTANYL CITR 100 MCG/2 ML ONE ×3 (05:37→12:43)
[2020-05-23 06:10] LABS: ALT/SGPT 41 U/L (12-78); Albumin 3.4 g/dL (3.4-5.0); Alkaline Phosphatase 87 U/L (45-117); BUN Blood Urea Nitrogen 49 mg/dL (7-18); Bicarbonate 32 mmol/L (21-32); Bilirubin Direct 0.2 mg/dL (0-0.2); Bilirubin Total 0.6 mg/dL (0.2-1.0); Glucose Level 193 mg/dL (74-106); NT PRO-BNP 2188 pg/mL (<450); Protein, Total 6.6 g/dL (6.4-8.2); Sodium Level 136 mmol/L (136-145); Troponin (Emerg Dept Use Only) < 0.02 ng/mL (0.0-0.045)
[2020-05-23 06:12] LABS: AST/SGOT 36 U/L (15-37); Magnesium 2.4 mg/dL (1.8-2.4); Potassium 5.2 mmol/L (3.5-5.1)
--- NOTE | 2020-05-23 07:14 | EDPHYS ---
Physician Documentation [facility] Name: Jeannie Whitlock Age: 89 yrs Sex: Female : 1930 Arrival Date: 05/23/2020 Time: 04:16 Bed 7 Private MD: ED Physician Rick Munguia HPI: 05/23 04:53 This 89 yrs old Female presents to ER via EMS with complaints of falls. ma2 04:53 The patient or guardian reports decreased range of motion, injury. Onset: The ma2 symptoms/episode began/occurred suddenly, 1 day(s) ago. Associated signs and symptoms: Pertinent negatives: fever, numbness distally, tingling distally. Severity of symptoms: At their worst the symptoms were moderate, in the emergency department the symptoms are unchanged. The patient has experienced similar episodes in the past. fallen twice today . Historical: - Allergies: 04:20 Codeine; em 04:20 CT Dye; em 04:20 Demerol; em 04:20 Ibuprofen; em 04:20 Iodine; em 04:20 Meperidine; em 04:20 metformin; em 04:20 Morphine; em 04:20 PENICILLINS; em 04:20 Iqmcsqy-Zmc-Wuv Reductase Inhibitor; em 04:20 Tape; em - Home Meds: 10:59 amiodarone 100 mg Oral tab 1 tab every other day [Active]; Humalog Mix 75-25 100 hb unit/mL (75-25) Sub-Q susp 36 units in the morning, 14 units in the evening [Active]; furosemide 20 mg Oral tab 1 tab nightly [Active]; prednisone 5 mg oral tab once daily [Active]; metoprolol tartrate 50 mg oral tab 2 times per day [Active]; lisinopril 5 mg Oral tab 1 tab at 5pm PRN [Active]; sertraline 75 mg Oral tab nightly [Active]; ProAir HFA 90 mcg/actuation inhalation HFAA 2 puffs as needed [Active]; CoQ-10 100 mg Oral cap nightly [Active]; Vitamin D 5,000 units Oral nightly [Active]; krill oil 1000 mg daily Oral nightly [Active]; Ocuvite 118-48-1-150 ut-gsgz-iw-mg Oral cap daily [Active]; cranberry 500 mg oral cap daily [Active]; ondansetron HCl 4 mg Oral tab as needed [Active]; Trelegy 1 puff nightly [Active]; aspirin 81 mg Oral TbEC 1 tab once daily [Active]; levothyroxine 25 mcg tab once daily [Active]; gabapentin 100 mg oral cap twice a day [Active]; spironolactone 25 mg Oral tab once daily [Active]; - PMHx: 04:20 Cancer, Lung; CHF; Diabetes - IDDM; High Cholesterol; Hypertension; em - Immunization history:: Adult Immunizations up to date. - Social history:: Patient/guardian denies using alcohol, street drugs, The patient lives with family, Smoking status: Patient denies any tobacco usage or history of. - Family history:: not pertinent. ROS: 04:53 Constitutional: Negative for fever, chills, and weight loss. ma2 04:53 All other systems are negative. Exam: 04:53 Constitutional: This is a well developed, well nourished patient who is awake, alert, ma2 and in no acute distress. Head/Face: old forehead contusion, otherwsie Normocephalic, atraumatic. Eyes: Pupils equal round and reactive to light, extra-ocular motions intact. Lids and lashes normal. Conjunctiva and sclera are non-icteric and not injected. Cornea within normal limits. Periorbital areas with no swelling, redness, or edema. ENT: Nares patent. No nasal discharge, no septal abnormalities noted. Tympanic membranes are normal and external auditory canals are clear. Oropharynx with no redness, swelling, or masses, exudates, or evidence of obstruction, uvula midline. Mucous membranes moist. Chest/axilla: Normal chest wall appearance and motion. Nontender with no deformity. No lesions are appreciated. Cardiovascular: Regular rate and rhythm with a normal S1 and S2. No gallops, murmurs, or rubs. Normal PMI, no JVD. No pulse deficits. Respiratory: Lungs have equal breath sounds bilaterally, clear to auscultation and percussion. No rales, rhonchi or wheezes noted. No increased work of breathing, no retractions or nasal flaring. Abdomen/GI: Soft, non-tender, with normal bowel sounds. No distension or tympany. No guarding or rebound. No evidence of tenderness throughout. Back: No spinal tenderness. No costovertebral tenderness. Full range of motion. Skin: Warm, dry with normal turgor. Normal color with no rashes, no lesions, and no evidence of cellulitis. MS/ Extremity: contusion and skin tear over left forearm, right heal cellulitis, dry, left hip pain with limited rom d/t pain, Pulses equal, no cyanosis. Neurovascular intact. Full, normal range of motion. Neuro: Awake and alert, GCS 15, oriented to person, place, time, and situation. Cranial nerves II-XII grossly intact. Motor strength 5/5 in all extremities. Sensory grossly intact. Cerebellar exam normal. Normal gait. Vital Signs: 04:27 BP 127 / 61; Pulse 95; Resp 18; Temp 97.8; Pulse Ox 99% on R/A; ea 05:44 BP 111 / 51; Pulse 89; Resp 18; Temp 98; Pulse Ox 100% ; ea MDM: 04:19 Patient medically screened. [facility] 04:53 Differential diagnosis: closed fracture, contusion, abrasion, tendonitis. [facility] 06:58 Data reviewed: vital signs, nurses notes. Counseling: I had a detailed discussion with [facility] the patient and/or guardian regarding: the historical points, exam findings, and any diagnostic results supporting the discharge/admit diagnosis, the presence of at least one elevated blood pressure reading (>120/80) during this emergency department visit, the need for outpatient follow up. Response to treatment: the patient's symptoms have markedly improved after treatment. 05/23 04:21 Order name: Basic Metabolic Panel [facility] 05/23 04:21 Order name: CBC with Diff; Complete Time: 05:37 [facility] 05/23 04:21 Order name: LFT's [facility] 05/23 04:21 Order name: Magnesium; Complete Time: 06:57 [facility] 05/23 04:21 Order name: NT PRO-BNP; Complete Time: 06:57 [facility] 05/23 04:21 Order name: PT-INR; Complete Time: 05:37 [facility] 05/23 04:21 Order name: Troponin (emerg Dept Use Only); Complete Time: 06:57 [facility] 05/23 04:22 Order name: Basic Metabolic Panel; Complete Time: 06:57 EDMS 05/23 04:22 Order name: Liver (Hepatic) Function; Complete Time: 06:57 EDMS 05/23 07:10 Order name: Basic Metabolic Panel EDMS 05/23 07:10 Order name: Basic Metabolic Panel EDMS 05/23 07:10 Order name: Troponin I EDMS 05/23 07:10 Order name: Troponin I; Complete Time: 12:52 EDMS 05/23 07:10 Order name: Troponin I EDMS 05/23 04:21 Order name: XRAY Chest (1 view); Complete Time: 09:59 ma2 05/23 04:21 Order name: Pelvis XRAY; Complete Time: 09:59 ma2 05/23 04:21 Order name: Hip Left 2 View XRAY; Complete Time: 09:59 ma2 05/23 04:21 Order name: Hand Left 2 View XRAY; Complete Time: 09:59 ma2 05/23 04:23 Order name: CT Head C Spine ma2 05/23 07:10 Order name: CBC with Automated Diff EDMS 05/23 07:10 Order name: CBC with Automated Diff EDMS 05/23 07:40 Order name: CT C Spine [facility] 05/23 07:41 Order name: Urine Culture [facility] 05/23 09:05 Order name: Glucose, Ancillary Testing; Complete Time: 09:59 EDMS 05/23 10:17 Order name: COVID-19 : Document "Date of Symptom Onset" if Symptomatic. sv 05/23 11:04 Order name: CORONAVIRUS EDNJ 05/23 11:14 Order name: Urine Dipstick-Ancillary; Complete Time: 12:52 EDMS 05/23 11:45 Order name: SARS-COV-2 RT PCR; Complete Time: 12:52 EDMS 05/23 12:02 Order name: Glucose, Ancillary Testing; Complete Time: 12:52 EDMS 05/23 04:21 Order name: EKG; Complete Time: 04:22 ma2 05/23 05:28 Interpretation: Within normal limits. ma2 05/23 04:21 Order name: Cardiac monitoring; Complete Time: 05:36 ma2 05/23 04:21 Order name: EKG - Nurse/Tech; Complete Time: 05:36 ma2 05/23 04:21 Order name: IV Saline Lock; Complete Time: 05:16 ma2 05/23 04:21 Order name: Labs collected and sent; Complete Time: 05:16 ma2 05/23 04:21 Order name: O2 Per Protocol; Complete Time: 04:36 ma2 05/23 04:21 Order name: O2 Sat Monitoring; Complete Time: 04:36 ma2 05/23 07:10 Order name: Regular EDMS 05/23 07:10 Order name: EKG Electrocardiogram EDMS 05/23 07:10 Order name: EKG Electrocardiogram EDMS 05/23 07:10 Order name: EKG Electrocardiogram EDMS 05/23 07:10 Order name: EKG Electrocardiogram EDMS 05/23 07:40 Order name: CT Abd/Pelvis - Without Contrast nora 05/23 08:37 Order name: CT; Complete Time: 09:59 EDMS 05/23 09:19 Order name: Chaudhry; Complete Time: 09:19 hb 05/23 10:09 Order name: Sugar Tong Forearm Splint; Complete Time: 10:46 nora Administered Medications: 05:23 Drug: fentaNYL (PF) 25 mcg Route: IVP; Site: right antecubital; jb4 05:49 Follow up: Response: No adverse reaction; Pain is decreased ea 05:24 Drug: NS 0.9% 1000 ml Route: IV; Rate: 75 ml/hr; Site: right antecubital; jb4 05:24 Drug: Zofran (Ondansetron) 4 mg Route: IVP; Site: right antecubital; jb4 05:49 Follow up: Response: No adverse reaction ea 07:54 Drug: fentaNYL (PF) 25 mcg Route: IVP; Site: right antecubital; hb 08:35 Follow up: Response: No adverse reaction hb 07:54 Drug: Zofran (Ondansetron) 4 mg Route: IVP; Site: right antecubital; hb 08:35 Follow up: Response: No adverse reaction hb 11:00 Drug: Rocephin - (cefTRIAXone) 1 grams Route: IVPB; Infused Over: 30 mins; Site: right hb antecubital; 11:13 Drug: Xopenex 2.5 mg Route: Inhalation; hb 11:13 Drug: AtroVENT Aerosol 0.5 mg Route: Inhalation; hb 11:14 Drug: SOLU-Medrol 125 mg Route: IVP; Site: right antecubital; hb Disposition: 05/23/20 07:13 Hospitalization ordered by Darrell Robles for Inpatient Admission. Preliminary diagnosis are Dehydration - sujey, Fall (on)(from) incline, Fracture of base of neck of femur, Type 1 diabetes mellitus, Fracture of ulna styloid process, Displaced comminuted fracture of shaft of radius, left arm - comminuted and impacteddistal left radius fracture, Laceration without foreign body of left forearm - skin tear, large 10 cm, Laceration without foreign body of left little finger without damage to nail, Chronic obstructive pulmonary disease with (acute) exacerbation. - Bed requested for Telemetry/MedSurg (Inpatient). - Status is Inpatient Admission. hb - Condition is Stable. - Problem is new. - Symptoms are unchanged. Signatures: Dispatcher [employer] [facility] Phyllis Arceo RN RN dw Anderson, Corey, MD MD cha Munoz, Edgar, RN Giuliana Oswald RN Ulises Martinez RN RN jbCornelia Luu RN RN ea Alzahri, Mohammad, MD MD ma2 Corrections: (The following items were deleted from the chart) 05:51 04:22 Forearm Left+RAD.RAD.BRZ ordered. [facility] EDNJ 09:16 07:13 Hospitalization Ordered by Darrell Robles MD for Observation. Preliminary diagnosis nora is Dehydration - sujey. Bed requested for Telemetry/MedSurg (observation). Status is Observation. Condition is Stable. Problem is new. Symptoms are unchanged. ma2 10:06 09:16 05/23/2020 07:13 Hospitalization Ordered by Darrell Robles MD for Observation. nora Preliminary diagnosis is Dehydration - sujey; Fall (on)(from) incline; Fracture of base of neck of femur; Type 1 diabetes mellitus. Bed requested for Telemetry/MedSurg (observation). Status is Observation. Condition is Stable. Problem is new. Symptoms are unchanged. nora 10:06 10:06 05/23/2020 07:13 Hospitalization Ordered by Darrell Robles MD for Observation. nora Preliminary diagnosis is Dehydration - sujey; Fall (on)(from) incline; Fracture of base of neck of femur; Type 1 diabetes mellitus; Fracture of ulna styloid process; Displaced comminuted fracture of shaft of radius, left arm - comminuted and impacteddistal left radius fracture; Laceration without foreign body of left forearm - skin tear, large 10 cm; Laceration without foreign body of left little finger without damage to nail. Bed requested for Telemetry/MedSurg (observation). Status is Observation. Condition is Stable. Problem is new. Symptoms are unchanged. nora 11:11 10:06 05/23/2020 07:13 Hospitalization Ordered by Darrell Robles MD for Inpatient hb Admission. Preliminary diagnosis is Dehydration - sujey; Fall (on)(from) incline; Fracture of base of neck of femur; Type 1 diabetes mellitus; Fracture of ulna styloid process; Displaced comminuted fracture of shaft of radius, left arm - comminuted and impacteddistal left radius fracture; Laceration without foreign body of left forearm - skin tear, large 10 cm; Laceration without foreign body of left little finger without damage to nail; Chronic obstructive pulmonary disease with (acute) exacerbation. Bed requested for Telemetry/MedSurg (observation). Status is Inpatient Admission. Condition is Stable. Problem is new. Symptoms are unchanged. [facility] 14:22 11:11 05/23/2020 07:13 Hospitalization Ordered by Darrell Robles MD for Inpatient dw Admission. Preliminary diagnosis is Dehydration - sujey; Fall (on)(from) incline; Fracture of base of neck of femur; Type 1 diabetes mellitus; Fracture of ulna styloid process; Displaced comminuted fracture of shaft of radius, left arm - comminuted and impacteddistal left radius fracture; Laceration without foreign body of left forearm - skin tear, large 10 cm; Laceration without foreign body of left little finger without damage to nail; Chronic obstructive pulmonary disease with (acute) exacerbation. Bed requested for [facility] ER HOLD. Status is Inpatient Admission. Condition is Stable. Problem is new. Symptoms are unchanged. hb 16:03 14:22 05/23/2020 07:13 Hospitalization Ordered by Darrell Robles MD for Inpatient hb Admission. Preliminary diagnosis is Dehydration - sujey; Fall (on)(from) incline; Fracture of base of neck of femur; Type 1 diabetes mellitus; Fracture of ulna styloid process; Displaced comminuted fracture of shaft of radius, left arm - comminuted and impacteddistal left radius fracture; Laceration without foreign body of left forearm - skin tear, large 10 cm; Laceration without foreign body of left little finger without damage to nail; Chronic obstructive pulmonary disease with (acute) exacerbation. Bed requested for Telemetry/MedSurg (Inpatient). Status is Inpatient Admission. Condition is Stable. Problem is new. Symptoms are unchanged. dw
--- NOTE | 2020-05-23 07:14 | ER ---
Nurse's Notes [facility] Name: Jeannie Whitlock Age: 89 yrs Sex: Female : 1930 Arrival Date: 05/23/2020 Time: 04:16 Bed 7 Private MD: Diagnosis: Dehydration-sujey;Fall (on)(from) incline;Fracture of base of neck of femur;Type 1 diabetes mellitus;Fracture of ulna styloid process;Displaced comminuted fracture of shaft of radius, left arm-comminuted and impacteddistal left radius fracture;Laceration without foreign body of left forearm-skin tear, large 10 cm;Laceration without foreign body of left little finger without damage to nail;Chronic obstructive pulmonary disease with (acute) exacerbation Presentation: 05/23 04:18 Coronavirus screen: At this time, the client does not indicate any symptoms associated ea with coronavirus-19. Ebola Screen: No symptoms or risks identified at this time. 04:18 Acuity: IRENE 3 ea 04:27 Chief complaint: EMS states: Toned out to pt's home, has had multiple falls at home, pt ea reports pain in left wrist and left hip. Coronavirus screen: At this time, the client does not indicate any symptoms associated with coronavirus-19. Ebola Screen: No symptoms or risks identified at this time. Initial Sepsis Screen: Does the patient meet any 2 criteria? No. Patient's initial sepsis screen is negative. Does the patient have a suspected source of infection? No. Patient's initial sepsis screen is negative. Risk Assessment: Do you want to hurt yourself or someone else? Patient reports no desire to harm self or others. Onset of symptoms was May 23, 2020. 04:27 Acuity: IRENE 3 ea 04:27 Method Of Arrival: EMS: [facility] ea Historical: - Allergies: 04:20 Codeine; em 04:20 CT Dye; em 04:20 Demerol; em 04:20 Ibuprofen; em 04:20 Iodine; em 04:20 Meperidine; em 04:20 metformin; em 04:20 Morphine; em 04:20 PENICILLINS; em 04:20 Amtucce-Cnk-Hlk Reductase Inhibitor; em 04:20 Tape; em - Home Meds: 10:59 amiodarone 100 mg Oral tab 1 tab every other day [Active]; Humalog Mix 75-25 100 hb unit/mL (75-25) Sub-Q susp 36 units in the morning, 14 units in the evening [Active]; furosemide 20 mg Oral tab 1 tab nightly [Active]; prednisone 5 mg oral tab once daily [Active]; metoprolol tartrate 50 mg oral tab 2 times per day [Active]; lisinopril 5 mg Oral tab 1 tab at 5pm PRN [Active]; sertraline 75 mg Oral tab nightly [Active]; ProAir HFA 90 mcg/actuation inhalation HFAA 2 puffs as needed [Active]; CoQ-10 100 mg Oral cap nightly [Active]; Vitamin D 5,000 units Oral nightly [Active]; krill oil 1000 mg daily Oral nightly [Active]; Ocuvite 825-34-8-150 rd-cqum-qg-mg Oral cap daily [Active]; cranberry 500 mg oral cap daily [Active]; ondansetron HCl 4 mg Oral tab as needed [Active]; Trelegy 1 puff nightly [Active]; aspirin 81 mg Oral TbEC 1 tab once daily [Active]; levothyroxine 25 mcg tab once daily [Active]; gabapentin 100 mg oral cap twice a day [Active]; spironolactone 25 mg Oral tab once daily [Active]; - PMHx: 04:20 Cancer, Lung; CHF; Diabetes - IDDM; High Cholesterol; Hypertension; em - Immunization history:: Adult Immunizations up to date. - Social history:: Patient/guardian denies using alcohol, street drugs, The patient lives with family, Smoking status: Patient denies any tobacco usage or history of. - Family history:: not pertinent. Screenin:17 Abuse screen: Denies threats or abuse. Nutritional screening: No deficits noted. ea Tuberculosis screening: No symptoms or risk factors identified. Fall Risk None identified. Assessment: 04:29 General: Appears uncomfortable, Behavior is appropriate for age. Pain: Complains of ea pain in left hip and left wrist. Neuro: Level of Consciousness is awake, alert, obeys commands, Oriented to person, place, time, situation. Cardiovascular: Patient's skin is warm and dry. Respiratory: Airway is patent Respiratory effort is even, unlabored, Respiratory pattern is regular, symmetrical. Derm: Skin is pink, warm \T\ dry. 05:49 Reassessment: Patient and/or family updated on plan of care and expected duration. Pain ea level reassessed. Patient is alert, oriented x 3, equal unlabored respirations, skin warm/dry/pink. Awaiting on results. 07:15 Reassessment: Patient appears in no apparent distress at this time. Patient and/or hb family updated on plan of care and expected duration. Pain level reassessed. Patient is alert, oriented x 3, equal unlabored respirations, skin warm/dry/pink. 08:15 Reassessment: Patient appears in no apparent distress at this time. Patient and/or hb family updated on plan of care and expected duration. Pain level reassessed. Patient is alert, oriented x 3, equal unlabored respirations, skin warm/dry/pink. 09:15 Reassessment: Patient appears in no apparent distress at this time. Patient and/or hb family updated on plan of care and expected duration. Pain level reassessed. Patient is alert, oriented x 3, equal unlabored respirations, skin warm/dry/pink. 10:02 Reassessment: Dr. Munguia at bedside for L FA wound care/dressing and sugar tong hb splint application. Vital Signs: 04:27 BP 127 / 61; Pulse 95; Resp 18; Temp 97.8; Pulse Ox 99% on R/A; ea 05:44 BP 111 / 51; Pulse 89; Resp 18; Temp 98; Pulse Ox 100% ; ea ED Course: 04:16 Patient arrived in ED. em 04:17 Patient has correct armband on for positive identification. Bed in low position. Call ea light in reach. Side rails up X2. 04:19 Cristy Field MD is Attending Physician. ma2 04:27 Cornelia Rodriguez, HIREN is Primary Nurse. ea 04:27 Arm band placed on right wrist. Patient placed in an exam room, on a stretcher, on ea pulse oximetry. 04:28 Triage completed. ea 04:49 CT Head C Spine In Process Unspecified. EDMS 05:16 Inserted saline lock: 22 gauge in right antecubital area, using aseptic technique. ea Blood collected. 05:54 Pelvis XRAY In Process Unspecified. EDMS 05:55 Hip Left 2 View XRAY In Process Unspecified. EDMS 05:55 XRAY Chest (1 view) In Process Unspecified. EDMS 05:56 Hand Left 2 View XRAY In Process Unspecified. EDMS 07:12 Darrell Robles MD is Hospitalizing Provider. ma2 07:37 Attending Physician role handed off by Cristy Field MD [facility] 07:37 Rick Munguia MD is Attending Physician. nora 09:32 Chaudhry cath inserted, using sterile technique, 16 Fr., by pr, balloon inflated, to hb gravity drainage, urine specimen collected. returned clear yellow urine. Patient tolerated well. 10:12 L FA sugar tong splint application and wound care of very large skin tear to left upper hb forearm. Administered Medications: 05:23 Drug: fentaNYL (PF) 25 mcg Route: IVP; Site: right antecubital; jb4 05:49 Follow up: Response: No adverse reaction; Pain is decreased ea 05:24 Drug: NS 0.9% 1000 ml Route: IV; Rate: 75 ml/hr; Site: right antecubital; jb4 05:24 Drug: Zofran (Ondansetron) 4 mg Route: IVP; Site: right antecubital; jb4 05:49 Follow up: Response: No adverse reaction ea 07:54 Drug: fentaNYL (PF) 25 mcg Route: IVP; Site: right antecubital; hb 08:35 Follow up: Response: No adverse reaction hb 07:54 Drug: Zofran (Ondansetron) 4 mg Route: IVP; Site: right antecubital; hb 08:35 Follow up: Response: No adverse reaction hb 11:00 Drug: Rocephin - (cefTRIAXone) 1 grams Route: IVPB; Infused Over: 30 mins; Site: right hb antecubital; 11:13 Drug: Xopenex 2.5 mg Route: Inhalation; hb 11:13 Drug: AtroVENT Aerosol 0.5 mg Route: Inhalation; hb 11:14 Drug: SOLU-Medrol 125 mg Route: IVP; Site: right antecubital; hb Outcome: 07:13 Decision to Hospitalize by Provider. ma2 16:03 Patient left the ED. hb Signatures: Dispatcher [employer] EDRick Goins MD MD cha Munoz, Edgar, RN RN em Baxter, Heather, RN RN Ulises Simmons RN RN jb4 Cornelia Rodriguez RN RN Cristy Graf, MD ma2
[2020-05-23] MEDS ORDERED: D5 0.45 NS 1,000 ML IV SCH (08:00)
--- NOTE | 2020-05-23 08:36 | RAD REPORT ---
EXAM DESCRIPTION: CT - Abdomen Pelvis Wo Contrast - 05/23/2020 8:00 am CLINICAL HISTORY: Abd pain;Blunt trauma COMPARISON: Abdomen Pelvis Wo Contrast dated 09/09/2018; Abdomen Pelvis Wo Contrast dated 03/16/19 18; Abdomen Pelvis Wo Contrast dated 02/25/2016; CTANGIO AORTA FOR DISSECTION dated 02/06/2007 TECHNIQUE: Axial [address] imaging of the abdomen and pelvis was performed without IV contrast. No IV contrast was given because of allergy, abnormal renal function, patient refusal or physician re quest. No oral contrast. All CT scans are performed using dose optimization technique as appropriate and may include automated exposure control or mA/KV adjustment according to patient size. FINDINGS: Fibrotic stranding with no acute lung base finding. No cardiomegaly or pericardial effusio n. Liver and spleen show no suspicious findings. Gallbladder is absent. No biliary tree dilatation. No p ancreatitis or peripancreatic stranding. In the body of the pancreas there is a 15 millimeter rounded density. Comparing to the multiple prior studies is difficult. On the prior examinations the treated abdominal aortic aneurysm pressed into the pancreas distorting its contour. No hydronephrosis or suspicious renal mass. No significant adrenal finding. Isodense renal masses an d pyelonephritis cannot be excluded in the absence of IV contrast. The urinary bladder is without sig nificant finding. Uterus and atrophic ovaries show no suspicious findings. No dilated bowel loops or bowel wall thickening. No acute GI findings seen. No free air, free fluid o r inflammatory stranding. No hernia, mass or bulky lymphadenopathy. Prominent bony degenerative changes are present. No acute or subacute fracture changes identifiable. Since prior imaging there has been surgical intervention with treatment of the aneurysm. Aortoiliac s tent graft is in place. The large aneurysm component has been removed. IMPRESSION: No acute fracture changes are present. No acute traumatic findings in the abdomen or pel vis. A 15 millimeter rounded mass near the body of the pancreas could be pancreatic in origin or could rep resent of opacified vasculature. Comparing to prior studies is difficult due to the very large aortic aneurysm compressing and distorting the pancreatic parenchyma. A follow-up contrast-enhanced study as an outpatient could be performed. At 8 Hounsfield units this c ould potentially be a cyst warranting ongoing monitoring. Full assessment is limited is the absence of IV contrast.
--- NOTE | 2020-05-23 09:01 | RAD REPORT ---
EXAM DESCRIPTION: RAD - Pelvis - 05/23/2020 5:54 am CLINICAL HISTORY: TRAUMA, multiple falls, pelvic pain COMPARISON: Abdomen Pelvis Wo Contrast dated 05/23/2020 TECHNIQUE: AP imaging of the pelvis was obtained. FINDINGS: Bones are osteopenic. Prominent lower lumbar degenerative change only partially imaged. Ao rtoiliac stenting and postsurgical changes are noted. No fracture of the bony pelvis identified. No fracture of either proximal femur though the left femur subcapital region is obscured by the greater trochanter. Moderate bilateral hip joint degenerative c hange present. IMPRESSION: Pelvis and hip joint degenerative change as detailed. No proximal femur fracture seen though the left subcapital region is not optimally visualized.
--- NOTE | 2020-05-23 09:05 | RAD REPORT ---
EXAM DESCRIPTION: RAD - Hip Left 2 View - 05/23/2020 5:55 am CLINICAL HISTORY: PAIN, multiple falls COMPARISON: Abdomen Pelvis Wo Contrast dated 05/23/2020 FINDINGS: AP and frogleg views of the left hip were obtained. Minimally impacted subcapital neck fracture is suspected. No pathologic change. Femoral head maintain s smooth rounded contour. Osteopenic changes are present. Mild to moderate degenerative change seen a long the superior acetabular rim. No fracture of the partially imaged left hemipelvis. No soft tissue abnormality. Dense arterial tree calcifications present. IMPRESSION: Probable left subcapital neck fracture.
--- NOTE | 2020-05-23 09:09 | RAD REPORT ---
EXAM DESCRIPTION: RAD - Chest Single View - 05/23/2020 5:55 am CLINICAL HISTORY: fall, chest pain COMPARISON: October 2019 TECHNIQUE: AP portable chest image was obtained 05/23/2020 5:55 am . FINDINGS: Scattered fibrotic lung changes are present. Ill-defined 10 millimeter density is present in the mid right lung field. This may simply be summation artifact. The possibility of a small lung m ass cannot be excluded. No failure or volume overload. Right suprahilar scarring changes are present. Sternotomy wires are in place. Pacemaker/defibrillator in place. Heart size is normal. No measurable pleural effusion and no pneumothorax. No acute bony abnormality seen. No acute aortic findings suspec ortega. IMPRESSION: Fibrotic lung change with no failure, infiltrate or mass. No pneumothorax or acute posttraumatic change to the chest. Vague nodular focus in the right midlung field could be scarring. A small mass lesion cannot be exclu ded and follow-up CT chest study could be performed.
--- NOTE | 2020-05-23 09:12 | RAD REPORT ---
EXAM DESCRIPTION: RAD - Hand Left 2 View - 05/23/2020 5:56 am CLINICAL HISTORY: PAIN COMPARISON: No comparisons FINDINGS: Bones are osteopenic as a baseline. Ulna styloid is fractured. Advanced degenerative menezes e seen at the scaphoid- trapezium and trapezium - first metacarpal articulation. IP joint degenerativ e changes are also present. No pathologic bone process. Impacted distal radius fracture is present. The distal radius fracture fragment appears comminuted. D istal fracture appears to be dorsally displaced. The lateral view is not optimally positioned. No for eign body. IMPRESSION: Comminuted and impacted distal left radius fracture. Nondisplaced ulna styloid fracture.
[2020-05-23] MEDS ORDERED: D50W 25 GM/50 ML SYRINGE IV PRN (09:19)
[2020-05-23] MEDS ORDERED: GLUCAGON 1 MG/VIAL IM PRN ×2 (09:19→13:49)
[2020-05-23] MEDS ORDERED: Mastisol Adhesive Liq ONE (10:05)
--- NOTE | 2020-05-23 10:26 | RAD REPORT ---
EXAM DESCRIPTION: CT - [id number] - 05/23/2020 7:59 am CLINICAL HISTORY: 89 years Female pain, fall TECHNIQUE: Noncontrast CT head and cervical spine with coronal and sagittal reformats. All CT scans at this facility use dose modulation, iterative reconstruction, and/or weight based dosing when appro priate to reduce radiation dose to as low as reasonably achievable. COMPARISON: None. FINDINGS: HEAD: Brain: Diffuse parenchymal volume loss. Chronic small vessel disease. 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 Remote lacunar infarcts in the bilateral basal ganglia No intracranial hemorrhage, midli ne shift, mass or mass effect. No obvious large acute territorial infarction. Ventricles: No hydrocephalus. Orbits: Unremarkable. Sinus: Visualized portions are clear. Mastoid: clear Osseous: Unremarkable. Soft tissues: Unremarkable. CERVICAL SPINE: Limitation: Study is degraded by motion artifact. Vertebra: Diffuse osteopenia. Questionable nondisplaced fracture versus artifact in the left transver se foramen of C3 anteriorly on the left seen in axial image [id number] series 302. Degenerative change: Multilevel degenerative changes are present. No high grade spinal canal stenosis . Alignment: No spondylolisthesis. Soft tissues: Unremarkable. Lungs: Visualized lung apices are clear. IMPRESSION: CT head: 1. No acute intracranial findings. CT cervical spine: 1. Study is degraded by motion artifact. Questionable nondisplaced fracture versus artifact in the le ft transverse foramen of C3 as described above. Recommend repeat examination. Electronically signed by: Tyrese Schultz MD 05/23/2020 5:15 AM CDT Due to temporary technical issues with the PACS/Fluency reporting system, reports are being signed by the in house radiologists without review as a courtesy to insure prompt reporting. The interpreting radiologist is fully responsible for the content of the report. ADDENDUM: Cervical spine images were repeated due to the degree of motion on the original examinatio n and finding of possible fracture. The repeat examination shows only minor amounts of motion. No fracture is identified. Specifically th e left transverse foramen C3 fracture does not persist on this repeat evaluation.
[2020-05-23] MEDS ORDERED: CEFTRIAXONE/SWI 1gm 1 GM/10 ML SYR ONE (10:59)
[2020-05-23 11:14] LABS: Urine Blood Negative (Negative); Urine Glucose Negative (Negative); Urine Protein Negative (Negative); Urine Specific Gravity 1.025 (1.005-1.030)
[2020-05-23] MEDS ORDERED: INSULIN -REGULAR HUMAN 50 UNIT/0.5 ML ML SQ SCH (11:30)
[2020-05-23] MEDS ORDERED: IPRATROPIUM BROM 0.5MG/2.5ML ONE (11:39)
[2020-05-23] MEDS ORDERED: METHYLPREDNISOLONE 125 MG INJ ONE (11:39)
[2020-05-23] MEDS ORDERED: LEVALBUTEROL 1.25 MG/3 ML NEB ONE (11:39)
[2020-05-23] MEDS ORDERED: D5 0.45 NS 1,000 ML IV ONE (12:32)
[2020-05-23] MEDS ORDERED: FENTANYL CITR 100 MCG/2 ML IV ONE (12:44)
[2020-05-23] MEDS ORDERED: INSULIN -REGULAR HUMAN 50 UNIT/0.5 ML ML ONE (12:44)
--- NOTE | 2020-05-23 12:46 | EKG ---
Test Date: 2020-05-23 Test Time: 05:28:13 Clinical Quality Assurance Specialist: ABIMBOLA MEASUREMENT RESULTS: Intervals: Rate: 88 NJ: 144 QRSD: 126 QT: 428 QTc: 517 [place]: P: 91 NJ: 144 QRS: -53 T: 114 INTERPRETIVE STATEMENTS: Atrial-sensed ventricular-paced rhythm Abnormal ECG Compared to ECG 09/09/2018 09:12:59 No significant changes Electronically Signed On 05-23-20 12:45:14 CDT by Kelvin Martinez
[2020-05-23] MEDS ORDERED: D50W 25 GM/50 ML VIAL IV PRN (13:58)
--- NOTE | 2020-05-23 13:58 | P.HP ---
Certification for Inpatient Patient admitted to: Inpatient With expected LOS: >2 Midnights Patient will require the following post-hospital care: Rehabilitation Practitioner: I am a practitioner with admitting privileges, knowledge of patient current condition, hospital course, and medical plan of care. Services: Services provided to patient in accordance with Admission requirements found in Title 42 Section 412.3 of the Code of Federal Regulations Patient History Date of Service: 05/23/20 Primary Care Provider: Annia Romano Reason for admission: hip fracture History of Present Illness: Patient of Vinay Romano who I have had the pleasure of taking care of in the past. She has a history of dm2, copd, htn. Unfortunately she fell yesterday. The pateint was in pain and came to the ER. She had a fracture of the left hip and left radius. Her creatine was also elevated. She normally has a baseline of 1- 1.1 She has recently started a work up at the local foot doctor. Was not able to tolerate a travis. So was sent for an ultrasound. Which was inconclusive. Allergies codeine [Codeine] Allergy (Mild, Verified 09/20/18 16:20) Itching Penicillins Allergy (Mild, Verified 09/20/18 16:20) Nausea/Vomiting ciprofloxacin [From Cipro] Allergy (Verified 09/20/18 16:20) Shortness of breath iodine Allergy (Verified 09/20/18 16:20) Unknown meperidine [From Demerol] Allergy (Verified 09/20/18 16:20) Unknown metformin Allergy (Verified 09/20/18 16:20) Nausea/Vomiting morphine Allergy (Verified 09/20/18 16:20) Unknown Pfnfndo-Ith-Aya Reductase Inhibitor Allergy (Verified 09/20/18 16:20) Nausea/Vomiting CT Dye Allergy (Uncoded 09/20/18 16:20) Unknown Tape Allergy (Uncoded 09/20/18 16:20) Itching Home Medications: Albuterol Sulfate [Proair Hfa] 1 inh IN TID PRN 12/08/18 Amiodarone HCl 100 mg PO DAILY 12/08/18 Furosemide [Lasix*] 20 mg PO DAILY 12/08/18 Insulin Lispro [Humalog] 12 units SQ BEDTIME 12/08/18 Insulin Lispro [Humalog] 34 units SQ DAILY 12/08/18 Krill/Om-3/Dha/Epa/Phospho/Ast [Krill Oil 1,000 mg Softgel] 1 cap PO DAILY 12/08/18 Metoprolol Tartrate 25 mg PO BID 12/08/18 Ondansetron [Zuplenz] 4 mg PO DAILY PRN 12/08/18 Sertraline [Zoloft*] 75 mg PO DAILY 12/08/18 Ubidecarenone [Co Q-10] 1 cap PO DAILY 12/08/18 Vit A,C & E/Lutein/Minerals [Ocuvite Tablet] 1 tab PO DAILY 12/08/18 Vitamin D [Drisdol*] 1 cap PO BID 12/08/18 lisinopriL [Lisinopril] 5 mg PO DAILY 12/08/18 predniSONE [Prednisone*] 5 mg PO DAILY 12/08/18 Fluticasone/Umeclidin/Vilanter [Trelegy Ellipta 100-62.5-25] 1 puff 05/23/20 Gabapentin 100 mg PO BID 05/23/20 Levothyroxine Sodium [Levothyroxine] 25 mcg PO DAILY 05/23/20 - Past Medical/Surgical History Has patient received pneumonia vaccine in the past: Yes Diabetic: Yes -: DM -: COPD -: LUNG CA -: CHF -: htn -: hyperlipidemia -: uti -: cad -: AAA -: cardiomyopathy -: Cataract sx R eye -: 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) -: Triple Bypass in 1999 -: Upper teeth removd -: chloesectomy -: appendectomy -: bladder surgery -: AAA repair using straight graft (2014) - Family History Father -: Diabetes Notes: asthma, tuberculosis, pneumonia Mother -: Heart disease, Stroke Notes: pneumonia - Social History Smoking Status: Never smoker Alcohol use: No CD- Drugs: No Caffeine use: No Place of Residence: Home Review of Systems 10-point ROS is otherwise unremarkable Musculoskeletal: Arm Pain (left side), Other (left hip and leg pain ) Physical Examination - Vital Signs Temperature: 98.3 F Blood Pressure: 128/60 Pulse: 104 Respirations: 22 Pulse Ox (%): 98 - Physical Exam General: Alert, In no apparent distress HEENT: Atraumatic, PERRLA, Mucous membr. moist/pink, EOMI, Sclerae nonicteric Neck: Supple, 2+ carotid pulse no bruit, No LAD, Without JVD or thyroid abnormality Respiratory: Clear to auscultation bilaterally, Normal air movement Cardiovascular: Regular rate/rhythm, Normal S1 S2 Gastrointestinal: Normal bowel sounds, No tenderness Musculoskeletal: No tenderness, Other (right ankle is wrapped) Integumentary: No rashes Neurological: Normal gait, Normal speech, Normal strength at 5/5 x4 extr, Normal tone, Normal affect Lymphatics: No axilla or inguinal lymphadenopathy - Studies Laboratory Data (last 24 hrs) 05/23/20 05:15: PT 10.9, INR 0.95 05/23/20 05:15: WBC 11.10 H, Hgb 12.1, Hct 37.1, Plt Count 161 05/23/20 05:15: Sodium 136, Potassium 5.2 H, BUN 49 H, Creatinine 2.45 H, Glucose 193 H, Magnesium 2.4, Total Bilirubin 0.6, AST 36, ALT 41, Alkaline Phosphatase 87 Assessment and Plan - Problems (Diagnosis) (1) Closed left hip fracture Current Visit: Yes Status: Acute Plan: Plans to take her to surgery with Dr. Dwyer. Based on her history of diabetes on insulin and chf. She has risk of cardiac arrest of 2.4% This is per the Geriatric-sensitive perioperative risk index (GSCRI). Her risk of respiratory failure is 0.5% It is reasonable to proceed with surgery given these numbers. Qualifiers: Encounter type: initial encounter Qualified Code(s): S72.002A - Fracture of unspecified part of neck of left femur, initial encounter for closed fracture (2) Left radial fracture Current Visit: Yes Status: Acute Plan: will await Dr. Madrid input Qualifiers: Encounter type: initial encounter Fracture type: closed Fracture alignment: nondisplaced (3) Acute on chronic renal failure Onset Date: 04/13/18 Current Visit: No Status: Acute Plan: Will continue mild hydration. Will follow the creatine. If necessary will consider a renal consult Qualifiers: Chronic kidney disease stage: stage 3 (moderate) (4) COPD (chronic obstructive pulmonary disease) Onset Date: 08/12/15 Current Visit: No Status: Chronic Plan: stable will give levoalbuterol as needed and continue home inhaler. Qualifiers: COPD type: COPD with acute exacerbation Qualified Code(s): J44.1 - Chronic obstructive pulmonary disease with (acute) exacerbation (5) Diabetes Onset Date: 12/18/15 Current Visit: No Status: Acute Plan: Will cover the patient with a sliding scale for now. Restart her home meds after surgery. Qualifiers: Diabetes mellitus type: type 2 Diabetes mellitus shelter insulin use: with manager long term care use Diabetes mellitus complication status: without complication Qualified Code(s): E11.9 - Type 2 diabetes mellitus without complications; Z79.4 - nursing home (current) use of insulin Discharge Plan: LTAC Plan to discharge in: Greater than 2 days - Advance Directives Does patient have a Living Will: No Does patient have a Durable POA for Healthcare: No - Code Status/Comfort Care Code Status Assessed: Yes Code Status: Full Code Physician Review: Patient Assessed, Agree with Above Assessment and Plan Critical Care: No Time Spent Managing Pts Care (In Minutes): 55
[2020-05-23] MEDS: NA CHLORIDE 0.9% 1,000 ML IV SCH ×2 (14:00→16:31)
[2020-05-23] MEDS: HYDROMORPHONE HCL 0.5 MG/0.5 ML INJ IV PRN ×2 (15:44→23:53)
[2020-05-23] MEDS: ONDANSETRON 4 MG/2 ML VIAL IV PRN (15:45)
[2020-05-23] MEDS ORDERED: HYDROMORPHONE HCL 0.5 MG/0.5 ML INJ ONE (16:04)
[2020-05-23] MEDS: ENOXAPARIN 30 MG/0.3 ML SQ SCH (17:00)
[2020-05-23 17:08] LABS: Protime INR 1.02
[2020-05-23] MEDS: INSULIN -REGULAR HUMAN 50 UNIT/0.5 ML ML SQ SCH ×2 (17:20→22:22)
[2020-05-23] MEDS: GABAPENTIN 100 MG CAP PO SCH (22:21)
[2020-05-23] MEDS: METOPROLOL TAR 25 MG TAB PO SCH (22:22)
[2020-05-23] MEDS: LEVALBUTEROL 0.63 MG/3 ML NEB NEB PRN (22:45)
[2020-05-24] MEDS: NA CHLORIDE 0.9% 1,000 ML IV SCH ×2 (02:01→12:30)
[2020-05-24] MEDS: LEVOTHYROXINE SOD 0.025 MG TAB PO SCH (06:18)
[2020-05-24 06:36] LABS: Absolute Lymphocytes (CBC) 1.9 K/uL (0.7-4.9); Basophils % 0.2 % (0-1.3); Hematocrit 31.5 % (36.0-45.0); Lymphocytes % 15.6 % (15.3-44.8); RBC Red Blood Cell Count 3.37 M/uL (3.86-4.86)
[2020-05-24 06:44] LABS: Potassium 5.1 mmol/L (3.5-5.1)
[2020-05-24] MEDS: INSULIN -REGULAR HUMAN 50 UNIT/0.5 ML ML SQ SCH ×4 (07:30→21:50)
[2020-05-24] MEDS: PANTOPRAZOLE 40MG TABLET PO SCH (07:30)
[2020-05-24] MEDS ORDERED: FENTANYL CITR 100 MCG/2 ML ONE (07:33)
[2020-05-24] MEDS ORDERED: GLYCOPYRROLATE 0.2 MG/ML SYR ONE (07:34)
[2020-05-24] MEDS ORDERED: NEOSTIGMINE 1 MG/ML -5 ML ONE (07:34)
[2020-05-24] MEDS ORDERED: KETOROLAC 30 MG/ML INJ ONE (07:34)
[2020-05-24] MEDS ORDERED: dexAMETHasone 4 MG/ML VIAL ONE (07:34)
[2020-05-24] MEDS ORDERED: MIDAZOLAM HCL 2 MG/2 ML INJ ONE (07:34)
[2020-05-24] MEDS ORDERED: ETOMIDATE 20 MG/10 ML VIAL IV ONE (07:35)
[2020-05-24] MEDS ORDERED: ONDANSETRON 4 MG/2 ML VIAL ONE (07:35)
[2020-05-24] MEDS ORDERED: TRANEXAMIC ACID 1,000 MG in NA CHLORIDE 0.9% 50 ML IV SCH (08:00)
[2020-05-24] MEDS ORDERED: ROCURONIUM 50 MG/5 ML VIAL IV ONE (08:07)
[2020-05-24] MEDS: AMIODARONE HCL 200 MG TAB PO SCH (08:13)
[2020-05-24] MEDS: COENZYME Q10- 200 MG CAP PO SCH (08:13)
[2020-05-24] MEDS: OCUVITE (VIT A,C & E/LUTEIN/MINERAL) TABLET PO SCH (08:14)
[2020-05-24] MEDS: METOPROLOL TAR 25 MG TAB PO SCH ×2 (08:14→21:00)
[2020-05-24] MEDS: SERTRALINE HCL 50 MG TAB PO SCH (08:14)
[2020-05-24] MEDS: GABAPENTIN 100 MG CAP PO SCH ×2 (08:14→22:10)
[2020-05-24] MEDS ORDERED: CEFAZOLIN/SWI 2gm 2 GM/20 ML SYR IV ONE (08:30)
[2020-05-24 08:41] LABS: Blood Morphology Comment NOT SEEN (NOT SEEN); Platelet Estimate DECR; White Blood Cell Scan OK (OK)
[2020-05-24] MEDS ORDERED: HOME MED 1 EA UNK (Amiodarone Hcl [Amiodarone Hcl] 100 MG Tablet) PO SCH (09:00)
[2020-05-24] MEDS ORDERED: UBIDECARENONE 10 MG PO SCH (09:00)
[2020-05-24] MEDS ORDERED: HOME MED 1 EA UNK (Levothyroxine Sodium [Levothyroxine] 25 MCG Capsule) PO SCH (09:00)
[2020-05-24] MEDS ORDERED: ALBUMIN HUM 5% 250 ML IV ONE (09:06)
[2020-05-24] MEDS ORDERED: HYDROMORPHONE HCL 1 MG/ML INJ ONE (11:01)
--- NOTE | 2020-05-24 11:01 | OP ---
Surgeon: Curt Marin MD Technical Developer: MADHAV Garcia. Preoperative Diagnoses: 1.Left distal radius fracture, multipart. 2.Left femoral neck fracture. Postoperative Diagnoses: 1.Left distal radius fracture, multipart. 2.Left femoral neck fracture. Procedure Performed: 1.Left hip hemiarthroplasty. 2.Closed reduction, percutaneous pinning of left wrist. Complications: None. Disposition: Recovery room in stable. Procedure In Detail: The patient was taken to the operative suite, placed in supine position, induce d anesthesia. The patient was placed in the lateral position left side up, posterior approach to the hip utilized. External rotators tagged for later reattachment. Fractured femoral neck delivered. Osteotomized 1 fingerbreadth above the lower lesser trochanter. A 46 mm grand traverse femoral head was deli jez. Reaming and broach technique for the canal realized a standard 13 mm stem. A 0 degree offset was appropriate, permanent implants placed. A layered closure performed including reattachment of l naty of external rotators through drill holes in bone. The patient was then placed in supine positio n after breaking scrub. The left upper extremity was prepped and draped. Her skin condition was don te poor. There were multiple tears throughout, which were cordoned off with op site bandages. A rupal sed reduction maneuver performed and excellent reduction was realized, it was stabilized with two 0.0 62 K-wires verified on biplane radiography. The patient tolerated procedure well. Was having a sugar-tong splint applied at the time of this dictation. BEST/KAYLEY Voice ID: [id number] Report ID: [id number]
--- NOTE | 2020-05-24 11:04 | P.PN ---
Subjective Date of Service: 05/24/20 Primary Care Provider: Annia Romano Chief Complaint: hip fracture Subjective: Improving (patient seen in the post op. She is somnolent) Physical Examination - Vital Signs Temperature: 98.0 F Blood Pressure: 132/77 Pulse: 88 Respirations: 18 Pulse Ox (%): 92 - Physical Exam General: Cooperative, Mild distress, Confused HEENT: Atraumatic, PERRLA, EOMI Neck: Supple, JVD not distended Respiratory: Clear to auscultation bilaterally, Normal air movement Cardiovascular: Regular rate/rhythm, Normal S1 S2 Gastrointestinal: Normal bowel sounds, No tenderness Musculoskeletal: No tenderness Integumentary: No rashes Neurological: Normal speech, Normal tone, Normal affect Lymphatics: No axilla or inguinal lymphadenopathy - Studies Laboratory Data (last 24 hrs) 05/24/20 06:18: Sodium 139, Potassium 5.1, BUN 41 H, Creatinine 1.75 H, Glucose 175 H 05/24/20 06:18: WBC 12.30 H, Hgb 10.1 L, Hct 31.5 L D, Plt Count 127 L D 05/23/20 16:48: PT 11.7, INR 1.02 05/23/20 15:09: Troponin I Cancelled 05/23/20 11:09: Troponin I < 0.02 Assessment & Plan - Problems (Diagnosis) (1) Closed left hip fracture Current Visit: Yes Status: Acute Plan: Plans to take her to surgery with Dr. Dwyer. Based on her history of diabetes on insulin and chf. She has risk of cardiac arrest of 2.4% This is per the Geriatric-sensitive perioperative risk index (GSCRI). Her risk of respiratory failure is 0.5% It is reasonable to proceed with surgery given these numbers. 05/24 S/p repair. She is recovering. Will start working with PT tomorrow and plac ement on Tuesday. Qualifiers: Encounter type: initial encounter Qualified Code(s): S72.002A - Fracture of unspecified part of neck of left femur, initial encounter for closed fracture (2) Left radial fracture Current Visit: Yes Status: Acute Plan: will await Dr. Madrid input 05/24 2 pins placed in her arm. Qualifiers: Encounter type: initial encounter Fracture type: closed Fracture alignment: nondisplaced (3) Acute on chronic renal failure Onset Date: 04/13/18 Current Visit: No Status: Acute Plan: Will continue mild hydration. Will follow the creatine. If necessary will consider a renal consult 05/24. her creatine is much better today. Qualifiers: Chronic kidney disease stage: stage 3 (moderate) (4) COPD (chronic obstructive pulmonary disease) Onset Date: 08/12/15 Current Visit: No Status: Chronic Plan: stable will give levoalbuterol as needed and continue home inhaler. Qualifiers: COPD type: COPD with acute exacerbation Qualified Code(s): J44.1 - Chronic obstructive pulmonary disease with (acute) exacerbation (5) Diabetes Onset Date: 12/18/15 Current Visit: No Status: Acute Plan: Will cover the patient with a sliding scale for now. Restart her home meds after surgery. 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
--- NOTE | 2020-05-24 11:19 | RAD REPORT ---
EXAM DESCRIPTION: RAD - Pelvis - 05/24/2020 11:00 am CLINICAL HISTORY: POST-OP COMPARISON: Pelvis dated 05/23/2020 TECHNIQUE: AP imaging of the pelvis was obtained. FINDINGS: Bipolar prosthesis has been placed. Implant is in good positioning. No suspicious or unexp ected implant or yurok bone finding. Skin ayo are present laterally. Air in the soft tissues is is expected postoperatively.
--- NOTE | 2020-05-24 11:24 | RAD REPORT ---
EXAM DESCRIPTION: RAD - Wrist Left 2 View - 05/24/2020 10:37 am FINDINGS: There were 11 portable C-arm views obtained during fluoroscopic assisted placement of frac ture fixation hardware. No suspicious or unexpected finding. Fluoro time was 0.4 minutes. Cumulative dose was 0.399 mGy.
[2020-05-24] MEDS ORDERED: INSULIN -REGULAR HUMAN 50 UNIT/0.5 ML ML ONE ×3 (12:47→21:55)
[2020-05-24] MEDS ORDERED: ENOXAPARIN 30 MG/0.3 ML SQ ONE (14:11)
[2020-05-24 16:30] VITALS: BMI 26.2
[2020-05-24] MEDS: ENOXAPARIN 30 MG/0.3 ML SQ SCH (17:03)
[2020-05-24] MEDS ORDERED: GABAPENTIN 100 MG CAP ONE (22:09)
[2020-05-24] MEDS ORDERED: NA CHLORIDE 0.9% 1,000 ML ONE (22:24)
[2020-05-24] MEDS: LEVALBUTEROL 0.63 MG/3 ML NEB NEB PRN (23:00)
[2020-05-24] MEDS ORDERED: LEVALBUTEROL 0.63 MG/3 ML NEB ONE (23:12)
[2020-05-25] MEDS: HYDROCODONE/APAP 7.5/325 MG TAB PO PRN (02:18)
[2020-05-25] MEDS ORDERED: LEVALBUTEROL 0.63 MG/3 ML NEB ONE (02:24)
[2020-05-25] MEDS ORDERED: HYDROCODONE/APAP 7.5/325 MG TAB ONE (02:37)
[2020-05-25] MEDS: NA CHLORIDE 0.9% 1,000 ML IV SCH (06:00)
[2020-05-25] MEDS: LEVOTHYROXINE SOD 0.025 MG TAB PO SCH (06:58)
[2020-05-25] MEDS: INSULIN -REGULAR HUMAN 50 UNIT/0.5 ML ML SQ SCH ×4 (08:57→21:00)
[2020-05-25] MEDS: OCUVITE (VIT A,C & E/LUTEIN/MINERAL) TABLET PO SCH (08:58)
[2020-05-25] MEDS: AMIODARONE HCL 200 MG TAB PO SCH (08:58)
[2020-05-25] MEDS: PANTOPRAZOLE 40MG TABLET PO SCH (08:58)
[2020-05-25] MEDS: GABAPENTIN 100 MG CAP PO SCH ×2 (09:00→21:18)
[2020-05-25] MEDS: SERTRALINE HCL 50 MG TAB PO SCH (09:00)
[2020-05-25] MEDS: METOPROLOL TAR 25 MG TAB PO SCH ×2 (09:00→21:19)
[2020-05-25] MEDS: COENZYME Q10- 200 MG CAP PO SCH (09:00)
[2020-05-25] MEDS: HYDROMORPHONE HCL 0.5 MG/0.5 ML INJ IV PRN (09:06)
--- NOTE | 2020-05-25 11:47 | P.PN ---
Subjective Date of Service: 05/25/20 Primary Care Provider: Annia Romano Chief Complaint: hip fracture Subjective: No new changes (s/p left hemiarthroplasty post op day 1) Review of Systems is unable to be obtained Physical Examination - Vital Signs Temperature: 98.0 F Blood Pressure: 131/58 Pulse: 90 Respirations: 16 Pulse Ox (%): 90 - Physical Exam Musculoskeletal: Other (dressings c/d/I) - Studies Microbiology Data (last 24 hrs): 05/23/20 11:07 Clean Catch Urine [place] Count - Final No growth. 05/23/20 11:07 Clean Catch Urine - Final No growth. Assessment And Plan - Plan she is weight baring as tolerated with walker, this is complicated by not having use of her fractured wrist which she can bare no weight on. she will need to go to a facility anticoagulant 28 days from discharge follow up in the office 2 weeks post op Discharge Plan: Intermediate Plan to discharge in: 24 Hours Physician Review: Patient Assessed, Agree with Above Assessment and Plan
--- NOTE | 2020-05-25 12:49 | P.PN ---
Subjective Date of Service: 05/25/20 Primary Care Provider: Annia Romano Chief Complaint: hip fracture Subjective: Improving (Patient is worried about blood draws) Review of Systems 10-point ROS is otherwise unremarkable Respiratory: Shortness of Breath Cardiovascular: Edema Integumentary: Bruising Physical Examination - Vital Signs Temperature: 98.0 F Blood Pressure: 131/58 Pulse: 90 Respirations: 16 Pulse Ox (%): 90 - Physical Exam General: Alert, In no apparent distress HEENT: Atraumatic, PERRLA, EOMI Neck: Supple, JVD not distended Respiratory: Clear to auscultation bilaterally, Normal air movement Cardiovascular: Regular rate/rhythm, Normal S1 S2, Edema (of one leg and her face) Gastrointestinal: Normal bowel sounds, No tenderness Musculoskeletal: No tenderness Integumentary: No rashes, Diabetic ulcer (stage 1 of the right heel ) Neurological: Normal speech, Normal tone, Normal affect Lymphatics: No axilla or inguinal lymphadenopathy - Studies Microbiology Data (last 24 hrs): 05/23/20 11:07 Clean Catch Urine [place] Count - Final No growth. 05/23/20 11:07 Clean Catch Urine - Final No growth. Assessment & Plan - Problems (Diagnosis) (1) Closed left hip fracture Current Visit: Yes Status: Acute Plan: Plans to take her to surgery with Dr. Dwyer. Based on her history of d iabetes on insulin and chf. She has risk of cardiac arrest of 2.4% This is per the Geriatric-sensitive perioperative risk index (GSCRI). Her risk of respiratory failure is 0.5% It is reasonable to proceed with surgery given these numbers. 05/25. Will see about rehab placement. Ortho recomends anticoagulation. She is worried about bruising. Will start her on low dose 2.5mg of xarelto and inc rease if she tolerates. Qualifiers: Encounter type: initial encounter Qualified Code(s): S72.002A - Fracture of unspecified part of neck of left femur, initial encounter for closed fracture (2) Left radial fracture Current Visit: Yes Status: Acute Plan: will await Dr. Madrid input 05/24 2 pins placed in her arm. Qualifiers: Encounter type: initial encounter Fracture type: closed Fracture alignment: nondisplaced (3) Acute on chronic renal failure Onset Date: 04/13/18 Current Visit: No Status: Acute Plan: Will continue mild hydration. Will follow the creatine. If necessary will consider a renal consult 05/25 patient asking for her lasix this morning. Feels swollen and congestion. She was short of breath last night. She was recently had her lasix increased by cardiologyto 40mg bid. This may explain her increased creatine from the baseline 1.1. Will start her on 40mg of lasix qday. However considering the high dose lasix may have caused the acute failure she may be a great candidate for entresto. Will not restart the lisinopril. Will see about keeping her on entresto. The family was concerned about all the bruising from the blood draws. Qualifiers: Chronic kidney disease stage: stage 3 (moderate) (4) COPD (chronic obstructive pulmonary disease) Onset Date: 08/12/15 Current Visit: No Status: Chronic Plan: stable will give levoalbuterol as needed and continue home inhaler. Qualifiers: COPD type: COPD with acute exacerbation Qualified Code(s): J44.1 - Chronic obstructive pulmonary disease with (acute) exacerbation (5) Diabetes Onset Date: 12/18/15 Current Visit: No Status: Acute Plan: Will cover the patient with a sliding scale for now. Restart her home meds after surgery. 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 Consider an echo as the last was done in Qualifiers: Heart failure type: combined systolic and diastolic Heart failure chronicity: acute on chronic Qualified Code(s): I50.43 - Acute on chronic combined systolic (congestive) and diastolic (congestive) heart failure Discharge Plan: Home - Code Status/Comfort Care Code Status Assessed: No Physician Review: Patient Assessed, Agree with Above Assessment and Plan Critical Care: No Time Spent Managing Pts Care (In Minutes): 30
[2020-05-25] MEDS: FUROSEMIDE 40 MG/4 ML VIAL IV SCH (16:27)
[2020-05-25] MEDS: ENOXAPARIN 30 MG/0.3 ML SQ SCH (17:11)
[2020-05-25] MEDS: SACUBITRIL/VALSARTAN 24/26 MG TAB PO SCH (21:18)
[2020-05-26 06:30] LABS: Potassium 5.2 mmol/L (3.5-5.1)
[2020-05-26] MEDS: LEVOTHYROXINE SOD 0.025 MG TAB PO SCH (06:30)
[2020-05-26] MEDS: AMIODARONE HCL 200 MG TAB PO SCH (08:35)
[2020-05-26] MEDS: SERTRALINE HCL 50 MG TAB PO SCH (08:35)
[2020-05-26] MEDS: INSULIN -REGULAR HUMAN 50 UNIT/0.5 ML ML SQ SCH ×4 (08:36→21:23)
[2020-05-26] MEDS: SACUBITRIL/VALSARTAN 24/26 MG TAB PO SCH ×2 (08:37→21:22)
[2020-05-26] MEDS: METOPROLOL TAR 25 MG TAB PO SCH ×2 (08:37→21:22)
[2020-05-26] MEDS: PANTOPRAZOLE 40MG TABLET PO SCH (08:37)
[2020-05-26] MEDS: COENZYME Q10- 200 MG CAP PO SCH (08:37)
[2020-05-26] MEDS: FUROSEMIDE 40 MG/4 ML VIAL IV SCH (08:37)
[2020-05-26] MEDS: GABAPENTIN 100 MG CAP PO SCH ×2 (08:37→21:22)
[2020-05-26] MEDS: OCUVITE (VIT A,C & E/LUTEIN/MINERAL) TABLET PO SCH (08:38)
[2020-05-26 08:52] LABS: Basophils % 1.2 % (0-1.3); Lymphocytes % 16.5 % (15.3-44.8); MPV 8.5 fL (7.6-11.3); RBC Red Blood Cell Count 2.92 M/uL (3.86-4.86)
[2020-05-26 09:25] LABS: Blood Morphology Comment NOT SEEN (NOT SEEN); Platelet Estimate DECR; Platelets, Giant PRESENT; White Blood Cell Scan OK (OK)
--- NOTE | 2020-05-26 09:56 | P.PN ---
Subjective Date of Service: 05/26/20 Primary Care Provider: Annia Romano Chief Complaint: hip fracture Subjective: Improving Review of Systems 10-point ROS is otherwise unremarkable Respiratory: Shortness of Breath Musculoskeletal: Hand Pain, Leg Pain Physical Examination - Vital Signs Temperature: 97.8 F Blood Pressure: 129/56 Pulse: 87 Respirations: 19 Pulse Ox (%): 91 - Physical Exam General: Alert, In no apparent distress HEENT: Atraumatic, PERRLA, EOMI Neck: Supple, JVD not distended Respiratory: Clear to auscultation bilaterally, Normal air movement Cardiovascular: Regular rate/rhythm, Normal S1 S2 Gastrointestinal: Normal bowel sounds, No tenderness Musculoskeletal: No tenderness Integumentary: No rashes Neurological: Normal speech, Normal tone, Normal affect Lymphatics: No axilla or inguinal lymphadenopathy - Studies Microbiology Data (last 24 hrs): 05/23/20 11:07 Clean Catch Urine [place] Count - Final No growth. 05/23/20 11:07 Clean Catch Urine - Final No growth. Assessment & Plan - Problems (Diagnosis) (1) Closed left hip fracture Current Visit: Yes Status: Acute Plan: Plans to take her to surgery with Dr. Dwyer. Based on her history of diabetes on insulin and chf. She has risk of cardiac arrest of 2.4% This is per the Geriatric-sensitive perioperative risk index (GSCRI). Her risk of respiratory failure is 0.5% It is reasonable to proceed with surgery given these numbers. 05/25. Will see about rehab placement. Ortho recomends anticoagulation. She is worried about bruising. Will start her on low dose 2.5mg of xarelto and increase if she tolerates. Qualifiers: Encounter type: initial encounter Qualified Code(s): S72.002A - Fracture of unspecified part of neck of left femur, initial encounter for closed fracture (2) Left radial fracture Current Visit: Yes Status: Acute Plan: will await Dr. Madrid input 05/24 2 pins placed in her arm. Qualifiers: Encounter type: initial encounter Fracture type: closed Fracture alignment: nondisplaced (3) Acute on chronic renal failure Onset Date: 04/13/18 Current Visit: No Status: Acute Plan: Will continue mild hydration. Will follow the creatine. If necessary will c onsider a renal consult 05/26 Patient creatine is improving. Antolin continue entresto. Qualifiers: Chronic kidney disease stage: stage 3 (moderate) (4) COPD (chronic obstructive pulmonary disease) Onset Date: 08/12/15 Current Visit: No Status: Chronic Plan: stable will give levoalbuterol as needed and continue home inhaler. Qualifiers: COPD type: COPD with acute exacerbation Qualified Code(s): J44.1 - Chronic obstructive pulmonary disease with (acute) exacerbation (5) Diabetes Onset Date: 12/18/15 Current Visit: No Status: Acute Plan: Will cover the patient with a sliding scale for now. Restart her home meds after surgery. Qualifiers: Diabetes mellitus type: type 2 Diabetes mellitus chcf insulin use: with chcf use Diabetes mellitus complication status: without complication Qualified Code(s): E11.9 - Type 2 diabetes mellitus without complications; Z79.4 - manager long term care (current) use of insulin (6) CHF (congestive heart failure) Onset Date: 09/30/17 Current Visit: No Status: Chronic Plan: will start the patient on lasix and entresto. Consider an echo as the last was done in Qualifiers: Heart failure type: combined systolic and diastolic Heart failure chronici ty: acute on chronic Qualified Code(s): I50.43 - Acute on chronic combined systolic (congestive) and diastolic (congestive) heart failure Discharge Plan: LTAC Plan to discharge in: 48 Hours - Code Status/Comfort Care Code Status Assessed: No Physician Review: Patient Assessed, Agree with Above Assessment and Plan Critical Care: No Time Spent Managing Pts Care (In Minutes): 20
[2020-05-26] MEDS: RIVAROXABAN 10 MG TABLET PO SCH (11:43)
[2020-05-26] MEDS: DOCUSATE NA 100 MG CAP PO SCH ×2 (11:43→21:22)
[2020-05-26] MEDS: HYDROCODONE/APAP 7.5/325 MG TAB PO PRN (14:03)
[2020-05-26] MEDS: LEVALBUTEROL 0.63 MG/3 ML NEB NEB PRN (15:52)
[2020-05-27] MEDS: LEVOTHYROXINE SOD 0.025 MG TAB PO SCH (05:46)
[2020-05-27] MEDS: INSULIN -REGULAR HUMAN 50 UNIT/0.5 ML ML SQ SCH ×4 (07:30→21:47)
[2020-05-27] MEDS: SERTRALINE HCL 50 MG TAB PO SCH (09:00)
[2020-05-27] MEDS: HYDROMORPHONE HCL 0.5 MG/0.5 ML INJ IV PRN (10:15)
[2020-05-27] MEDS: FUROSEMIDE 40 MG/4 ML VIAL IV SCH (10:17)
[2020-05-27] MEDS: GABAPENTIN 100 MG CAP PO SCH ×2 (10:17→21:42)
[2020-05-27] MEDS: COENZYME Q10- 200 MG CAP PO SCH (10:17)
[2020-05-27] MEDS: SACUBITRIL/VALSARTAN 24/26 MG TAB PO SCH ×2 (10:18→21:42)
[2020-05-27] MEDS: OCUVITE (VIT A,C & E/LUTEIN/MINERAL) TABLET PO SCH (10:18)
[2020-05-27] MEDS: RIVAROXABAN 10 MG TABLET PO SCH (10:18)
[2020-05-27] MEDS: AMIODARONE HCL 200 MG TAB PO SCH (10:19)
[2020-05-27] MEDS: METOPROLOL TAR 25 MG TAB PO SCH ×2 (10:20→21:00)
[2020-05-27] MEDS: PANTOPRAZOLE 40MG TABLET PO SCH (10:20)
[2020-05-27] MEDS: DOCUSATE NA 100 MG CAP PO SCH ×2 (10:20→21:43)
[2020-05-27] MEDS ORDERED: HYDROMORPHONE HCL 1 MG/ML INJ IV PRN (10:33)
--- NOTE | 2020-05-27 10:37 | P.PN ---
Subjective Date of Service: 05/27/20 Primary Care Provider: Annia Romano Chief Complaint: hip fracture Subjective: No new changes Review of Systems General: Malaise Respiratory: Shortness of Breath Physical Examination - Vital Signs Temperature: 97.8 F Blood Pressure: 129/57 Pulse: 96 Respirations: 20 Pulse Ox (%): 91 - Physical Exam General: Alert, In no apparent distress HEENT: Atraumatic, PERRLA, EOMI Neck: Supple, JVD not distended Respiratory: Clear to auscultation bilaterally, Diminished Cardiovascular: Regular rate/rhythm, Normal S1 S2 Gastrointestinal: Normal bowel sounds, No tenderness Musculoskeletal: No tenderness Integumentary: No rashes Neurological: Normal speech, Normal tone, Normal affect Lymphatics: No axilla or inguinal lymphadenopathy Assessment & Plan - Problems (Diagnosis) (1) Closed left hip fracture Current Visit: Yes Status: Acute Plan: Plans to take her to surgery with Dr. Dwyer. Based on her history of diabetes on insulin and chf. She has risk of cardiac arrest of 2.4% This is per the Geriatric-sensitive perioperative risk index (GSCRI). Her risk of respiratory failure is 0.5% It is reasonable to proceed with surgery given these numbers. 05/25. Will see about rehab placement. Ortho recomends anticoagulation. She is worried about bruising. Will start her on low dose 2.5mg of xarelto and increase if she tolerates. Qualifiers: Encounter type: initial encounter Qualified Code(s): S72.002A - Fracture of unspecified part of neck of left femur, initial encounter for closed fracture (2) Left radial fracture Current Visit: Yes Status: Acute Plan: will await Dr. Madrid input 05/24 2 pins placed in her arm. Qualifiers: Encounter type: initial encounter Fracture type: closed Fracture alignment: nondisplaced (3) Acute on chronic renal failure Onset Date: 04/13/18 Current Visit: No Status: Acute Plan: Will continue mild hydration. Will follow the creatine. If necessary will consider a renal consult 05/26 Patient creatine is improving. Antolin continue entresto. Qualifiers: Chronic kidney disease stage: stage 3 (moderate) (4) COPD (chronic obstructive pulmonary disease) Onset Date: 08/12/15 Current Visit: No Status: Chronic Plan: mild shortness of breath this morning. She has not been getting her home trilegy. She states that she had a bad night. Is a bit confused. Understandable for an 89 year who is tired. Will restart the trilegy. get her a levalbuterol treatment. Qualifiers: COPD type: COPD with acute exacerbation Qualified Code(s): J44.1 - Chronic obstructive pulmonary disease with (acute) exacerbation (5) Diabetes Onset Date: 12/18/15 Current Visit: No Status: Acute Plan: Will cover the patient with a sliding scale for now. Restart her home meds after surgery. Qualifiers: Diabetes mellitus type: type 2 Diabetes mellitus termination clerk insulin use: with fdc use Diabetes mellitus complication status: without complication Qualified Code(s): E11.9 - Type 2 diabetes mellitus without complications; Z79.4 - terminal operations supervisor (current) use of insulin (6) CHF (congestive heart failure) Onset Date: 09/30/17 Current Visit: No Status: Chronic Plan: will start the patient on lasix and entresto. Consider an echo as the last was done in Qualifiers: Heart failure type: combined systolic and diastolic Heart failure chronicity: acute on chronic Qualified Code(s): I50.43 - Acute on chronic combined systolic (congestive) and diastolic (congestive) heart failure Discharge Plan: LTAC Plan to discharge in: 24 Hours - Code Status/Comfort Care Code Status Assessed: No Physician Review: Patient Assessed, Agree with Above Assessment and Plan Critical Care: No Time Spent Managing Pts Care (In Minutes): 25
[2020-05-27] MEDS ORDERED: NA CHLORIDE 0.9% 250 ML ONE (12:21)
[2020-05-27] MEDS: VITAMIN D 5,000 UNIT CAP PO SCH (12:55)
[2020-05-27] MEDS ORDERED: HYDROMORPHONE HCL 0.5 MG/0.5 ML INJ IV PRN (20:25)
[2020-05-28] MEDS: LEVOTHYROXINE SOD 0.025 MG TAB PO SCH (05:33)
[2020-05-28] MEDS: PANTOPRAZOLE 40MG TABLET PO SCH (07:30)
--- NOTE | 2020-05-28 07:50 | P.PN ---
Subjective Date of Service: 05/28/20 Primary Care Provider: Annia Romano Chief Complaint: hip fracture Subjective: Improving (Patient seems better rested. She knows she is in [facility].) Review of Systems 10-point ROS is otherwise unremarkable Neurological: Confusion (she thought she was in [place] last night. This has resolved. ) Physical Examination - Vital Signs Temperature: 98.6 F Blood Pressure: 108/53 Pulse: 99 Respirations: 20 Pulse Ox (%): 93 - Physical Exam General: Alert, In no apparent distress HEENT: Atraumatic, PERRLA, EOMI Neck: Supple, JVD not distended Respiratory: Clear to auscultation bilaterally, Normal air movement Cardiovascular: Regular rate/rhythm, Normal S1 S2 Gastrointestinal: Normal bowel sounds, No tenderness Musculoskeletal: No tenderness Integumentary: No rashes Neurological: Normal speech, Normal tone, Normal affect Lymphatics: No axilla or inguinal lymphadenopathy Assessment & Plan - Problems (Diagnosis) (1) Closed left hip fracture Current Visit: Yes Status: Acute Plan: Plans to take her to surgery with Dr. Dwyer. Based on her history of diabetes on insulin and chf. She has risk of cardiac arrest of 2.4% This is per the Geriatric-sensitive perioperative risk index (GSCRI). Her risk of respiratory failure is 0.5% It is reasonable to proceed with surgery given these numbers. 05/25. Will see about rehab placement. Ortho recomends anticoagulation. She is worried about bruising. Will start her on low dose 2.5mg of xarelto and increase if she tolerates. Qualifiers: Encounter type: initial encounter Qualified Code(s): S72.002A - Fracture of unspecified part of neck of left femur, initial encounter for closed fracture (2) Left radial fracture Current Visit: Yes Status: Acute Plan: will await Dr. Madrid input 05/24 2 pins placed in her arm. Qualifiers: Encounter type: initial encounter Fracture type: closed Fracture alignment: nondisplaced (3) Acute on chronic renal failure Onset Date: 04/13/18 Current Visit: No Status: Acute Plan: Will continue mild hydration. Will follow the creatine. If necessary will consider a renal consult 05/26 Patient creatine is improving. Antolin continue entresto. Qualifiers: Chronic kidney disease stage: stage 3 (moderate) (4) COPD (chronic obstructive pulmonary disease) Onset Date: 08/12/15 Current Visit: No Status: Chronic Plan: mild shortness of breath this morning. She has not been getting her home trilegy. She states that she had a bad night. Is a bit confused. Understandable for an 89 year who is tired. Will restart the trilegy. get her a levalbuterol treatment. Qualifiers: COPD type: COPD with acute exacerbation Qualified Code(s): J44.1 - Chronic obstructive pulmonary disease with (acute) exacerbation (5) Diabetes Onset Date: 12/18/15 Current Visit: No Status: Acute Plan: Will cover the patient with a sliding scale for now. Restart her home meds after surgery. Qualifiers: Diabetes mellitus type: type 2 Diabetes mellitus termite treater helper insulin use: with alf use Diabetes mellitus complication status: without complication Qualified Code(s): E11.9 - Type 2 diabetes mellitus without complications; Z79.4 - [facility] (current) use of insulin (6) CHF (congestive heart failure) Onset Date: 09/30/17 Current Visit: No Status: Chronic Plan: will start the patient on lasix and entresto. Consider an echo as the last was done in Qualifiers: Heart failure type: combined systolic and diastolic Heart failure chronicity: acute on chronic Qualified Code(s): I50.43 - Acute on chronic combined systolic (congestive) and diastolic (congestive) heart failure Discharge Plan: LTAC Plan to discharge in: 24 Hours - Code Status/Comfort Care Code Status Assessed: No Physician Review: Patient Assessed, Agree with Above Assessment and Plan Critical Care: No Time Spent Managing Pts Care (In Minutes): 20
[2020-05-28] MEDS: FUROSEMIDE 20 MG TABLET PO SCH (09:00)
[2020-05-28] MEDS: SERTRALINE HCL 50 MG TAB PO SCH ×2 (09:11→21:27)
[2020-05-28] MEDS: DOCUSATE NA 100 MG CAP PO SCH ×2 (09:12→21:26)
[2020-05-28] MEDS: GABAPENTIN 100 MG CAP PO SCH ×2 (09:12→21:27)
[2020-05-28] MEDS: VITAMIN D 5,000 UNIT CAP PO SCH (09:13)
[2020-05-28] MEDS: OCUVITE (VIT A,C & E/LUTEIN/MINERAL) TABLET PO SCH (09:13)
[2020-05-28] MEDS: RIVAROXABAN 10 MG TABLET PO SCH (09:14)
[2020-05-28] MEDS: INSULIN -REGULAR HUMAN 50 UNIT/0.5 ML ML SQ SCH ×4 (09:15→21:35)
[2020-05-28] MEDS: COENZYME Q10- 200 MG CAP PO SCH (09:15)
[2020-05-28] MEDS: AMIODARONE HCL 200 MG TAB PO SCH (09:15)
[2020-05-28] MEDS: SACUBITRIL/VALSARTAN 24/26 MG TAB PO SCH ×2 (11:00→21:27)
[2020-05-28] MEDS: METOPROLOL TAR 25 MG TAB PO SCH ×2 (11:00→21:00)
[2020-05-29] MEDS: LEVOTHYROXINE SOD 0.025 MG TAB PO SCH (06:00)
[2020-05-29 06:31] LABS: Albumin 2.2 g/dL (3.4-5.0); Bilirubin Total 0.8 mg/dL (0.2-1.0); Protein, Total 5.2 g/dL (6.4-8.2)
[2020-05-29] MEDS ORDERED: HYDROMORPHONE HCL 1 MG/ML INJ IV PRN (08:39)
--- NOTE | 2020-05-29 08:40 | P.PN ---
Subjective Date of Service: 05/29/20 Primary Care Provider: Annia Romano Chief Complaint: hip fracture Subjective: No new changes Review of Systems 10-point ROS is otherwise unremarkable Musculoskeletal: Leg Pain (right) Physical Examination - Vital Signs Temperature: 97.3 F Blood Pressure: 107/49 Pulse: 89 Respirations: 19 Pulse Ox (%): 96 - Physical Exam General: Alert, In no apparent distress HEENT: Atraumatic, PERRLA, EOMI Neck: Supple, JVD not distended Respiratory: Clear to auscultation bilaterally, Normal air movement Cardiovascular: Regular rate/rhythm, Normal S1 S2 Gastrointestinal: Normal bowel sounds, No tenderness Musculoskeletal: No tenderness Integumentary: No rashes Neurological: Normal speech, Normal tone, Normal affect Lymphatics: No axilla or inguinal lymphadenopathy Assessment & Plan - Problems (Diagnosis) (1) Closed left hip fracture Current Visit: Yes Status: Acute Plan: Plans to take her to surgery with Dr. Dwyer. Based on her history of diabetes on insulin and chf. She has risk of cardiac arrest of 2.4% This is per the Geriatric-sensitive perioperative risk index (GSCRI). Her risk of respiratory failure is 0.5% It is reasonable to proceed with surgery given these numbers. 05/25. Will see about rehab placement. Ortho recomends anticoagulation. She is worried about bruising. Will start her on low dose 2.5mg of xarelto and increase if she tolerates. Qualifiers: Encounter type: initial encounter Qualified Code(s): S72.002A - Fracture of unspecified part of neck of left femur, initial encounter for closed fracture (2) Left radial fracture Current Visit: Yes Status: Acute Plan: will await Dr. Madrid input 05/24 2 pins placed in her arm. Qualifiers: Encounter type: initial encounter Fracture type: closed Fracture alignment: nondisplaced (3) Acute on chronic renal failure Onset Date: 04/13/18 Current Visit: No Status: Acute Plan: Will continue mild hydration. Will follow the creatine. If necessary will consider a renal consult 05/26 Patient creatine is improving. Antolin continue entresto. Qualifiers: Chronic kidney disease stage: stage 3 (moderate) (4) COPD (chronic obstructive pulmonary disease) Onset Date: 08/12/15 Current Visit: No Status: Chronic Plan: mild shortness of breath this morning. She has not been getting her home trilegy. She states that she had a bad night. Is a bit confused. Understandable for an 89 year who is tired. Will restart the trilegy. get her a levalbuterol treatment. Qualifiers: COPD type: COPD with acute exacerbation Qualified Code(s): J44.1 - Chronic obstructive pulmonary disease with (acute) exacerbation (5) Diabetes Onset Date: 12/18/15 Current Visit: No Status: Acute Plan: Will cover the patient with a sliding scale for now. Restart her home meds after surgery. Qualifiers: Diabetes mellitus type: type 2 Diabetes mellitus skilled nursing insulin use: with terminal computer operator use Diabetes mellitus complication status: without complication Qualified Code(s): E11.9 - Type 2 diabetes mellitus without complications; Z79.4 - group home (current) use of insulin (6) CHF (congestive heart failure) Onset Date: 09/30/17 Current Visit: No Status: Chronic Plan: will start the patient on lasix and entresto. Consider an echo as the last was done in Qualifiers: Heart failure type: combined systolic and diastolic Heart failure chronicity: acute on chronic Qualified Code(s): I50.43 - Acute on chronic combined systolic (congestive) and diastolic (congestive) heart failure Discharge Plan: LTAC Plan to discharge in: 24 Hours - Code Status/Comfort Care Code Status Assessed: No Physician Review: Patient Assessed, Agree with Above Assessment and Plan Critical Care: No Time Spent Managing Pts Care (In Minutes): 20
[2020-05-29] MEDS: INSULIN -REGULAR HUMAN 50 UNIT/0.5 ML ML SQ SCH ×4 (08:46→21:08)
[2020-05-29] MEDS: FUROSEMIDE 20 MG TABLET PO SCH (08:47)
[2020-05-29] MEDS: HYDROCODONE/APAP 7.5/325 MG TAB PO PRN ×2 (08:47→15:14)
[2020-05-29] MEDS: DOCUSATE NA 100 MG CAP PO SCH ×2 (08:47→21:07)
[2020-05-29] MEDS: COENZYME Q10- 200 MG CAP PO SCH (08:47)
[2020-05-29] MEDS: VITAMIN D 5,000 UNIT CAP PO SCH (08:48)
[2020-05-29] MEDS: SACUBITRIL/VALSARTAN 24/26 MG TAB PO SCH ×2 (08:48→21:07)
[2020-05-29] MEDS: RIVAROXABAN 10 MG TABLET PO SCH (08:48)
[2020-05-29] MEDS: OCUVITE (VIT A,C & E/LUTEIN/MINERAL) TABLET PO SCH (08:48)
[2020-05-29] MEDS: GABAPENTIN 100 MG CAP PO SCH ×2 (08:49→21:08)
[2020-05-29] MEDS: AMIODARONE HCL 200 MG TAB PO SCH (08:49)
[2020-05-29] MEDS: PANTOPRAZOLE 40MG TABLET PO SCH (08:49)
[2020-05-29] MEDS: METOPROLOL TAR 25 MG TAB PO SCH ×2 (08:49→21:08)
--- NOTE | 2020-05-29 17:58 | P.PN ---
Subjective Date of Service: 05/29/20 Primary Care Provider: Annia Romano Chief Complaint: hip fracture Subjective: No new changes Physical Examination - Vital Signs Temperature: 97.6 F Blood Pressure: 90/40 Pulse: 70 Respirations: 18 Pulse Ox (%): 98 - Physical Exam General: Alert (splint intact) Assessment And Plan - Plan she is weight baring as tolerated with walker, this is complicated by not having use of her fractured wrist which she can bare no weight on. she will need to go to a facility anticoagulant 28 days from discharge follow up in the office 2 weeks post op Physician Review: Patient Assessed, Agree with Above Assessment and Plan
[2020-05-29] MEDS: SERTRALINE HCL 50 MG TAB PO SCH (21:07)
[2020-05-30] MEDS: LEVOTHYROXINE SOD 0.025 MG TAB PO SCH (06:21)
--- NOTE | 2020-05-30 08:54 | P.PN ---
Subjective Date of Service: 05/30/20 Primary Care Provider: Annia Romano Chief Complaint: hip fracture Subjective: No new changes family at the bedside worried about her confusion. Have upped her pain medications yesterday. Which would explain the confusion Review of Systems 10-point ROS is otherwise unremarkable Neurological: Confusion Physical Examination - Vital Signs Temperature: 98.2 F Blood Pressure: 114/52 Pulse: 87 Respirations: 24 Pulse Ox (%): 90 - Physical Exam General: Alert, In no apparent distress HEENT: Atraumatic, PERRLA, EOMI Neck: Supple, JVD not distended Respiratory: Clear to auscultation bilaterally, Normal air movement Cardiovascular: Regular rate/rhythm, Normal S1 S2 Gastrointestinal: Normal bowel sounds, No tenderness Musculoskeletal: No tenderness Integumentary: No rashes Neurological: Normal speech, Normal tone, Normal affect Lymphatics: No axilla or inguinal lymphadenopathy Assessment & Plan - Problems (Diagnosis) (1) Closed left hip fracture Current Visit: Yes Status: Acute Plan: Plans to take her to surgery with Dr. Dwyer. Based on her history of diabetes on insulin and chf. She has risk of cardiac arrest of 2.4% This is per the Geriatric-sensitive perioperative risk index (GSCRI). Her risk of re spiratory failure is 0.5% It is reasonable to proceed with surgery given these numbers. 05/25. Will see about rehab placement. Ortho recomends anticoagulation. She is worried about bruising. Will start her on low dose 2.5mg of xarelto and increase if she tolerates. Qualifiers: Encounter type: initial encounter Qualified Code(s): S72.002A - Fracture of unspecified part of neck of left femur, initial encounter for closed fracture (2) Left radial fracture Current Visit: Yes Status: Acute Plan: will await Dr. Madrid input 05/24 2 pins placed in her arm. Qualifiers: Encounter type: initial encounter Fracture type: closed Fracture alignment: nondisplaced (3) Acute on chronic renal failure Onset Date: 04/13/18 Current Visit: No Status: Acute Plan: Will continue mild hydration. Will follow the creatine. If necessary will con human resources consultant a renal consult 05/26 Patient creatine is improving. Antolin continue entresto. Qualifiers: Chronic kidney disease stage: stage 3 (moderate) (4) COPD (chronic obstructive pulmonary disease) Onset Date: 08/12/15 Current Visit: No Status: Chronic Plan: mild shortness of breath this morning. She has not been getting her home trilegy. She states that she had a bad night. Is a bit confused. Understandable for an 89 year who is tired. Will restart the trilegy. get her a levalbuterol treatment. Qualifiers: COPD type: COPD with acute exacerbation Qualified Code(s): J44.1 - Chronic obstructive pulmonary disease with (acute) exacerbation (5) Diabetes Onset Date: 12/18/15 Current Visit: No Status: Acute Plan: Will cover the patient with a sliding scale for now. Restart her home meds after surgery. Qualifiers: Diabetes mellitus type: type 2 Diabetes mellitus comparator operator insulin use: with detention use Diabetes mellitus complication status: without complication Qualified Code(s): E11.9 - Type 2 diabetes mellitus without complications; Z79.4 - [facility] (current) use of insulin (6) CHF (congestive heart failure) Onset Date: 09/30/17 Current Visit: No Status: Chronic Plan: will start the patient on lasix and entresto. Consider an echo as the last was done in Qualifiers: Heart failure type: combined systolic and diastolic Heart failure chronicity: acute on chronic Qualified Code(s): I50.43 - Acute on chronic combined systolic (congestive) and diastolic (congestive) heart failure Discharge Plan: LTAC Plan to discharge in: 24 Hours - Code Status/Comfort Care Code Status Assessed: No Physician Review: Patient Assessed, Agree with Above Assessment and Plan Time Spent Managing Pts Care (In Minutes): 25
[2020-05-30] MEDS: METOPROLOL TAR 25 MG TAB PO SCH ×2 (09:00→21:00)
[2020-05-30] MEDS: INSULIN -REGULAR HUMAN 50 UNIT/0.5 ML ML SQ SCH ×4 (10:17→22:35)
[2020-05-30] MEDS: RIVAROXABAN 10 MG TABLET PO SCH (10:19)
[2020-05-30] MEDS: SACUBITRIL/VALSARTAN 24/26 MG TAB PO SCH ×2 (10:19→21:00)
[2020-05-30] MEDS: FUROSEMIDE 20 MG TABLET PO SCH (10:21)
[2020-05-30] MEDS: COENZYME Q10- 200 MG CAP PO SCH (10:22)
[2020-05-30] MEDS: OCUVITE (VIT A,C & E/LUTEIN/MINERAL) TABLET PO SCH (10:22)
[2020-05-30] MEDS: GABAPENTIN 100 MG CAP PO SCH ×2 (10:22→22:18)
[2020-05-30] MEDS: PANTOPRAZOLE 40MG TABLET PO SCH (10:22)
[2020-05-30] MEDS: VITAMIN D 5,000 UNIT CAP PO SCH (10:22)
[2020-05-30] MEDS: DOCUSATE NA 100 MG CAP PO SCH ×2 (10:23→22:19)
[2020-05-30] MEDS: AMIODARONE HCL 200 MG TAB PO SCH (10:27)
[2020-05-30 11:03] LABS: Albumin 2.2 g/dL (3.4-5.0); Bilirubin Total 0.9 mg/dL (0.2-1.0); Protein, Total 5.5 g/dL (6.4-8.2)
[2020-05-30 11:08] LABS: Potassium 6.3 mmol/L (3.5-5.1)
[2020-05-30] MEDS: D5 0.45 NS 1,000 ML IV SCH ×2 (11:40→15:26)
[2020-05-30] MEDS ORDERED: D5 0.45 NS 1,000 ML IV ONE (11:45)
[2020-05-30] MEDS ORDERED: SOD POLYSTYREN SUL 15 GM/60 ML UCUP PO ONE (12:00)
[2020-05-30] MEDS: LEVALBUTEROL 0.63 MG/3 ML NEB NEB PRN (12:50)
[2020-05-30] MEDS: SERTRALINE HCL 50 MG TAB PO SCH (22:19)
[2020-05-31] MEDS: D5 0.45 NS 1,000 ML IV SCH ×2 (01:35→14:40)
[2020-05-31] MEDS: LEVOTHYROXINE SOD 0.025 MG TAB PO SCH (05:42)
[2020-05-31 06:56] LABS: Albumin 2.1 g/dL (3.4-5.0); Bilirubin Total 0.8 mg/dL (0.2-1.0); Potassium 4.4 mmol/L (3.5-5.1); Protein, Total 5.2 g/dL (6.4-8.2)
[2020-05-31] MEDS: SACUBITRIL/VALSARTAN 24/26 MG TAB PO SCH ×2 (09:00→19:53)
[2020-05-31] MEDS: AMIODARONE HCL 200 MG TAB PO SCH (09:00)
[2020-05-31] MEDS: FUROSEMIDE 20 MG TABLET PO SCH (09:00)
[2020-05-31] MEDS: METOPROLOL TAR 25 MG TAB PO SCH ×2 (09:00→19:58)
[2020-05-31] MEDS: COENZYME Q10- 200 MG CAP PO SCH (09:00)
[2020-05-31] MEDS: PANTOPRAZOLE 40MG TABLET PO SCH (09:24)
[2020-05-31] MEDS: DOCUSATE NA 100 MG CAP PO SCH ×2 (09:24→19:53)
[2020-05-31] MEDS: RIVAROXABAN 10 MG TABLET PO SCH (09:25)
[2020-05-31] MEDS: OCUVITE (VIT A,C & E/LUTEIN/MINERAL) TABLET PO SCH (09:25)
[2020-05-31] MEDS: VITAMIN D 5,000 UNIT CAP PO SCH (09:26)
[2020-05-31] MEDS: GABAPENTIN 100 MG CAP PO SCH ×2 (09:28→19:53)
[2020-05-31] MEDS: INSULIN -REGULAR HUMAN 50 UNIT/0.5 ML ML SQ SCH ×4 (09:38→19:56)
--- NOTE | 2020-05-31 11:44 | P.PN ---
Subjective Date of Service: 05/31/20 Primary Care Provider: Annia Romano Chief Complaint: hip fracture family at the bedside. States she is doing much better. Had some hyperkalemia yesteday which she states has resolved. Review of Systems 10-point ROS is otherwise unremarkable General: Weakness Physical Examination - Vital Signs Temperature: 98.3 F Blood Pressure: 104/48 Pulse: 96 Respirations: 19 Pulse Ox (%): 92 - Physical Exam General: Alert, In no apparent distress HEENT: Atraumatic, PERRLA, EOMI Neck: Supple, JVD not distended Respiratory: Clear to auscultation bilaterally, Normal air movement Cardiovascular: Regular rate/rhythm, Normal S1 S2 Gastrointestinal: Normal bowel sounds, No tenderness Musculoskeletal: No tenderness Integumentary: No rashes Neurological: Normal speech, Normal tone, Normal affect Lymphatics: No axilla or inguinal lymphadenopathy Assessment & Plan - Problems (Diagnosis) (1) Closed left hip fracture Current Visit: Yes Status: Acute Plan: Plans to take her to surgery with Dr. Dwyer. Based on her history of diabetes on insulin and chf. She has risk of cardiac arrest of 2.4% This is per the Geriatric-sensitive perioperative risk index (GSCRI). Her risk of respiratory failure is 0.5% It is reasonable to proceed with surgery given these numbers. 05/25. Will see about rehab placement. Ortho recomends anticoagulation. She is worried about bruising. Will start her on low dose 2.5mg of xarelto and increase if she tolerates. Qualifiers: Encounter type: initial encounter Qualified Code(s): S72.002A - Fracture of unspecified part of neck of left femur, initial encounter for closed fracture (2) Left radial fracture Current Visit: Yes Status: Acute Plan: will await Dr. Madrid input 05/24 2 pins placed in her arm. Qualifiers: Encounter type: initial encounter Fracture type: closed Fracture alignment: nondisplaced (3) Acute on chronic renal failure Onset Date: 04/13/18 Current Visit: No Status: Acute Plan: Will continue mild hydration. Will follow the creatine. If necessary will consider a renal consult 05/31 will give 12 hours of fluids Qualifiers: Chronic kidney disease stage: stage 3 (moderate) (4) COPD (chronic obstructive pulmonary disease) Onset Date: 08/12/15 Current Visit: No Status: Chronic Plan: mild shortness of breath this morning. She has not been getting her home trilegy. She states that she had a bad night. Is a bit confused. Understandable for an 89 year who is tired. Will restart the trilegy. get her a levalbuterol treatment. Qualifiers: COPD type: COPD with acute exacerbation Qualified Code(s): J44.1 - Chronic obstructive pulmonary disease with (acute) exacerbation (5) Diabetes Onset Date: 12/18/15 Current Visit: No Status: Acute Plan: Will cover the patient with a sliding scale for now. Restart her home meds after surgery. Qualifiers: Diabetes mellitus type: type 2 Diabetes mellitus alf insulin use: with terminal press operator use Diabetes mellitus complication status: without complication Qualified Code(s): E11.9 - Type 2 diabetes mellitus without complications; Z7 9.4 - long-term (current) use of insulin (6) CHF (congestive heart failure) Onset Date: 09/30/17 Current Visit: No Status: Chronic Plan: will start the patient on lasix and entresto. Consider an echo as the last was done in Qualifiers: Heart failure type: combined systolic and diastolic Heart failure chronicity: acute on chronic Qualified Code(s): I50.43 - Acute on chronic combined systolic (congestive) and diastolic (congestive) heart failure (7) Acute hyperkalemia Current Visit: Yes Status: Resolved Plan: was given kayexalate yesterday. back in the normal range Will add some fluids Discharge Plan: LTAC Plan to discharge in: Greater than 2 days - Code Status/Comfort Care Code Status Assessed: No Physician Review: Patient Assessed, Agree with Above Assessment and Plan Critical Care: No Time Spent Managing Pts Care (In Minutes): 20
[2020-05-31] MEDS ORDERED: NA CHLORIDE 0.9% 1,000 ML IV SCH (13:00)
[2020-05-31] MEDS: SERTRALINE HCL 50 MG TAB PO SCH (19:53)
[2020-06-01] MEDS: HYDROCODONE/APAP 7.5/325 MG TAB PO PRN ×2 (03:21→21:36)
[2020-06-01] MEDS: LEVOTHYROXINE SOD 0.025 MG TAB PO SCH (05:47)
[2020-06-01] MEDS: INSULIN -REGULAR HUMAN 50 UNIT/0.5 ML ML SQ SCH ×4 (07:30→20:33)
[2020-06-01] MEDS: AMIODARONE HCL 200 MG TAB PO SCH (09:00)
[2020-06-01] MEDS: FUROSEMIDE 20 MG TABLET PO SCH (09:00)
[2020-06-01] MEDS: COENZYME Q10- 200 MG CAP PO SCH (09:43)
[2020-06-01] MEDS: SACUBITRIL/VALSARTAN 24/26 MG TAB PO SCH ×2 (09:43→20:29)
[2020-06-01] MEDS: DOCUSATE NA 100 MG CAP PO SCH ×2 (09:43→20:28)
[2020-06-01] MEDS: RIVAROXABAN 10 MG TABLET PO SCH (09:43)
[2020-06-01] MEDS: PANTOPRAZOLE 40MG TABLET PO SCH (09:44)
[2020-06-01] MEDS: OCUVITE (VIT A,C & E/LUTEIN/MINERAL) TABLET PO SCH (09:44)
[2020-06-01] MEDS: VITAMIN D 5,000 UNIT CAP PO SCH (09:44)
[2020-06-01] MEDS: GABAPENTIN 100 MG CAP PO SCH ×2 (09:44→20:34)
[2020-06-01] MEDS: METOPROLOL TAR 25 MG TAB PO SCH ×2 (09:47→20:29)
--- NOTE | 2020-06-01 11:57 | P.PN ---
Subjective Date of Service: 06/01/20 Primary Care Provider: Annia Romano Chief Complaint: hip fracture family at the bedside. States she is doing much better. she is much more alert and talkative Review of Systems 10-point ROS is otherwise unremarkable Musculoskeletal: Leg Pain Physical Examination - Vital Signs Temperature: 97.6 F Blood Pressure: 106/50 Pulse: 89 Respirations: 18 Pulse Ox (%): 95 - Physical Exam General: Alert, In no apparent distress HEENT: Atraumatic, PERRLA, EOMI Neck: Supple, JVD not distended Respiratory: Clear to auscultation bilaterally, Normal air movement Cardiovascular: Regular rate/rhythm, Normal S1 S2 Gastrointestinal: Normal bowel sounds, No tenderness Musculoskeletal: No tenderness Integumentary: No rashes Neurological: Normal speech, Normal tone, Normal affect Lymphatics: No axilla or inguinal lymphadenopathy Assessment & Plan - Problems (Diagnosis) (1) Closed left hip fracture Current Visit: Yes Status: Acute Plan: Plans to take her to surgery with Dr. Dwyer. Based on her history of diabetes on insulin and chf. She has risk of cardiac arrest of 2.4% This is per the Geriatric-sensitive perioperative risk index (GSCRI). Her risk of respiratory failure is 0.5% It is reasonable to proceed with surgery given these numbers. 05/25. Will see about rehab placement. Ortho recomends anticoagulation. She is worried about bruising. Will start her on low dose 2.5mg of xarelto and increase if she tolerates. Qualifiers: Encounter type: initial encounter Qualified Code(s): S72.002A - Fracture of unspecified part of neck of left femur, initial encounter for closed fracture (2) Left radial fracture Current Visit: Yes Status: Acute Plan: will await Dr. Madrid input 05/24 2 pins placed in her arm. Qualifiers: Encounter type: initial encounter Fracture type: closed Fracture alignment: nondisplaced (3) Acute on chronic renal failure Onset Date: 04/13/18 Current Visit: No Status: Acute Plan: Will continue mild hydration. Will follow the creatine. If necessary will consider a renal consult 05/31 will give 12 hours of fluids Qualifiers: Chronic kidney disease stage: stage 3 (moderate) (4) COPD (chronic obstructive pulmonary disease) Onset Date: 08/12/15 Current Visit: No Status: Chronic Plan: mild shortness of breath this morning. She has not been getting her home trilegy. She states that she had a bad night. Is a bit confused. Understandable for an 89 year who is tired. Will restart the trilegy. get her a levalbuterol treatment. Qualifiers: COPD type: COPD with acute exacerbation Qualified Code(s): J44.1 - Chronic obstructive pulmonary disease with (acute) exacerbation (5) Diabetes Onset Date: 12/18/15 Current Visit: No Status: Acute Plan: Will cover the patient with a sliding scale for now. Restart her home meds after surgery. 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 Will d/c the lasix. Continue metoprolol or enteresto. She has been having sbp in the 90's. This seems a good bp for her. No reason to hold the entresto and lopressor. Qualifiers: Heart failure type: combined systolic and diastolic Heart failure chronicity: acute on chronic Qualified Code(s): I50.43 - Acute on chronic combined systolic (congestive) and diastolic (congestive) heart failure (7) Acute hyperkalemia Current Visit: Yes Status: Resolved Plan: was given kayexalate yesterday. back in the normal range Will add some fluids Discharge Plan: LTAC - Code Status/Comfort Care Code Status Assessed: No Physician Review: Patient Assessed, Agree with Above Assessment and Plan Critical Care: No Time Spent Managing Pts Care (In Minutes): 20
[2020-06-01] MEDS: NA CHLORIDE 0.9% 1,000 ML IV SCH (12:26)
[2020-06-01] MEDS: SERTRALINE HCL 50 MG TAB PO SCH (20:28)
[2020-06-02] MEDS: NA CHLORIDE 0.9% 1,000 ML IV SCH ×2 (01:20→14:40)
[2020-06-02] MEDS: LEVOTHYROXINE SOD 0.025 MG TAB PO SCH (05:57)
[2020-06-02] MEDS: INSULIN -REGULAR HUMAN 50 UNIT/0.5 ML ML SQ SCH ×4 (07:30→20:46)
--- NOTE | 2020-06-02 08:03 | P.PN ---
Subjective Date of Service: 06/02/20 Primary Care Provider: Annia Romano Chief Complaint: hip fracture Patient is alert this morning. Her daughter has refused to sign the paper work till she has been seen by a neurologist. States to staff that I have not done anything. I have had several meeting with the daughter regarding her confusion. Have spoken to her almost daily. She never voiced wanting a neurologist to see her. Review of Systems 10-point ROS is otherwise unremarkable Musculoskeletal: Leg Pain Physical Examination - Vital Signs Temperature: 98.3 F Blood Pressure: 95/56 Pulse: 68 Respirations: 18 Pulse Ox (%): 95 - Physical Exam General: Alert, In no apparent distress HEENT: Atraumatic, PERRLA, EOMI Neck: Supple, JVD not distended Respiratory: Clear to auscultation bilaterally, Normal air movement Cardiovascular: Regular rate/rhythm, Normal S1 S2 Gastrointestinal: Normal bowel sounds, No tenderness Musculoskeletal: No tenderness Integumentary: No rashes Neurological: Normal speech, Normal tone, Normal affect Lymphatics: No axilla or inguinal lymphadenopathy Assessment & Plan - Problems (Diagnosis) (1) Closed left hip fracture Current Visit: Yes Status: Acute Plan: Plans to take her to surgery with Dr. Dwyer. Based on her history of diabetes on insulin and chf. She has risk of cardiac arrest of 2.4% This is per the Geriatric-sensitive perioperative risk index (GSCRI). Her risk of respiratory failure is 0.5% It is reasonable to proceed with surgery given these numbers. 05/25. Will see about rehab placement. Ortho recomends anticoagulation. She is worried about bruising. Will start her on low dose 2.5mg of xarelto and increase if she tolerates. Qualifiers: Encounter type: initial encounter Qualified Code(s): S72.002A - Fracture of unspecified part of neck of left femur, initial encounter for closed fracture (2) Left radial fracture Current Visit: Yes Status: Acute Plan: will await Dr. Madrid input 05/24 2 pins placed in her arm. Qualifiers: Encounter type: initial encounter Fracture type: closed Fracture alignment: nondisplaced (3) Acute on chronic renal failure Onset Date: 04/13/18 Current Visit: No Status: Acute Plan: Will continue mild hydration. Will follow the creatine. If necessary will consider a renal consult 05/31 will give 12 hours of fluids Qualifiers: Chronic kidney disease stage: stage 3 (moderate) (4) COPD (chronic obstructive pulmonary disease) Onset Date: 08/12/15 Current Visit: No Status: Chronic Plan: mild shortness of breath this morning. She has not been getting her home t rilegy. She states that she had a bad night. Is a bit confused. Understandable for an 89 year who is tired. Will restart the trilegy. get her a levalbuterol treatment. Qualifiers: COPD type: COPD with acute exacerbation Qualified Code(s): J44.1 - Chronic obstructive pulmonary disease with (acute) exacerbation (5) Diabetes Onset Date: 12/18/15 Current Visit: No Status: Acute Plan: Will cover the patient with a sliding scale for now. Restart her home meds after surgery. 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 Will d/c the lasix. Continue metoprolol or enteresto. She has been having sbp in the 90's. This seems a good bp for her. No reason to hold the entresto and lopressor. Qualifiers: Heart failure type: combined systolic and diastolic Heart failure chronicity: acute on chronic Qualified Code(s): I50.43 - Acute on chronic combined systolic (congestive) and diastolic (congestive) heart failure (7) Acute hyperkalemia Current Visit: Yes Status: Resolved Plan: was given kayexalate yesterday. back in the normal range Will add some fluids (8) Discharge planning issues Current Visit: Yes Status: Acute Plan: will consult Dr. Carranza. Have discussed her pain, immobility and pain medications as a reason for confusion. The daughter seemed to accept that at the time. However it seems she had second thoughts Discharge Plan: LTAC Plan to discharge in: 24 Hours - Code Status/Comfort Care Code Status Assessed: No Physician Review: Patient Assessed, Agree with Above Assessment and Plan Critical Care: No Time Spent Managing Pts Care (In Minutes): 30
[2020-06-02] MEDS: OCUVITE (VIT A,C & E/LUTEIN/MINERAL) TABLET PO SCH (09:13)
[2020-06-02] MEDS: METOPROLOL TAR 25 MG TAB PO SCH ×2 (09:13→20:20)
[2020-06-02] MEDS: VITAMIN D 5,000 UNIT CAP PO SCH (09:13)
[2020-06-02] MEDS: RIVAROXABAN 10 MG TABLET PO SCH (09:13)
[2020-06-02] MEDS: SACUBITRIL/VALSARTAN 24/26 MG TAB PO SCH ×2 (09:13→20:20)
[2020-06-02] MEDS: COENZYME Q10- 200 MG CAP PO SCH (09:14)
[2020-06-02] MEDS: DOCUSATE NA 100 MG CAP PO SCH ×2 (09:14→20:21)
[2020-06-02] MEDS: PANTOPRAZOLE 40MG TABLET PO SCH (09:14)
[2020-06-02] MEDS: GABAPENTIN 100 MG CAP PO SCH ×2 (09:14→20:21)
[2020-06-02] MEDS ORDERED: HYDROCODONE/APAP 7.5/325 MG TAB PO PRN (11:20)
[2020-06-02] MEDS: ONDANSETRON 4 MG/2 ML VIAL IV PRN (12:48)
--- NOTE | 2020-06-02 18:47 | RAD REPORT ---
EXAM DESCRIPTION: CT - Head Brain Wo Cont - 06/02/2020 6:38 pm CLINICAL HISTORY: Alteration of awareness/confusion COMPARISON: May 23, 2020 TECHNIQUE: Computed axial tomography of the head was obtained. IV contrast was not requested. All CT scans are performed using dose optimization technique as appropriate and may include automated exposure control or mA/KV adjustment according to patient size. FINDINGS: An intracranial bleed is not seen . The ventricles are normal in caliber. No extra-axial fluid collection is noted. Mild low-density areas within periventricular, deep and subcortical white matter likely represent isc hemic changes secondary to small vessel disease. Low-density area within the left parietal lobe uncha nged probably an old infarction. Small old right caudate infarction. Small left cerebellar infarction suspected Fluid within the sinuses/ mastoids is not seen. IMPRESSION: No acute intracranial abnormality is seen. If patient's symptoms persist MRI of the bra in would be recommended.
[2020-06-02] MEDS ORDERED: ACETAMINOPHEN 325 MG TABLET PO PRN (20:06)
[2020-06-02] MEDS: SERTRALINE HCL 50 MG TAB PO SCH (20:21)
[2020-06-02] MEDS: GLUCERNA SHAKE 237 ML CAN PO SCH (20:22)
[2020-06-03] MEDS: LEVOTHYROXINE SOD 0.025 MG TAB PO SCH (06:30)
[2020-06-03] MEDS: INSULIN -REGULAR HUMAN 50 UNIT/0.5 ML ML SQ SCH ×4 (07:30→21:02)
[2020-06-03] MEDS: COENZYME Q10- 200 MG CAP PO SCH (08:57)
[2020-06-03] MEDS: AMIODARONE HCL 200 MG TAB PO SCH (08:58)
[2020-06-03] MEDS: GABAPENTIN 100 MG CAP PO SCH ×2 (08:58→20:56)
[2020-06-03] MEDS: SACUBITRIL/VALSARTAN 24/26 MG TAB PO SCH ×2 (08:58→20:56)
[2020-06-03] MEDS: METOPROLOL TAR 25 MG TAB PO SCH ×2 (08:58→20:57)
[2020-06-03] MEDS: RIVAROXABAN 10 MG TABLET PO SCH (08:59)
[2020-06-03] MEDS: PANTOPRAZOLE 40MG TABLET PO SCH (08:59)
[2020-06-03] MEDS: DOCUSATE NA 100 MG CAP PO SCH ×2 (08:59→20:56)
[2020-06-03] MEDS: OCUVITE (VIT A,C & E/LUTEIN/MINERAL) TABLET PO SCH (08:59)
[2020-06-03] MEDS: GLUCERNA SHAKE 237 ML CAN PO SCH ×3 (09:00→21:00)
[2020-06-03] MEDS: VITAMIN D 5,000 UNIT CAP PO SCH (09:00)
--- NOTE | 2020-06-03 15:00 | P.PN ---
Subjective Date of Service: 06/03/20 Primary Care Provider: Annia Romano Chief Complaint: hip fracture Her daughter has refused to sign the paper work till she has been seen by a neurologist. States to staff that I have not done anything. I have had several meeting with the daughter regarding her confusion. Have spoken to her almost daily. She never voiced wanting a neurologist to see her. Review of Systems 10-point ROS is otherwise unremarkable Neurological: Confusion Physical Examination - Vital Signs Temperature: 98.1 F Blood Pressure: 132/60 Pulse: 84 Respirations: 19 Pulse Ox (%): 96 - Physical Exam General: Alert, In no apparent distress HEENT: Atraumatic, PERRLA, EOMI Neck: Supple, JVD not distended Respiratory: Clear to auscultation bilaterally, Normal air movement Cardiovascular: Regular rate/rhythm, Normal S1 S2 Gastrointestinal: Normal bowel sounds, No tenderness Musculoskeletal: No tenderness Integumentary: No rashes Neurological: Normal speech, Normal tone, Normal affect Lymphatics: No axilla or inguinal lymphadenopathy Assessment & Plan - Problems (Diagnosis) (1) Closed left hip fracture Current Visit: Yes Status: Acute Plan: Plans to take her to surgery with Dr. Dwyer. Based on her history of diabetes on insulin and chf. She has risk of cardiac arrest of 2.4% This is per the Geriatric-sensitive perioperative risk index (GSCRI). Her risk of respiratory failure is 0.5% It is reasonable to proceed with surgery given these numbers. 05/25. Will see about rehab placement. Ortho recomends anticoagulation. She is worried about bruising. Will start her on low dose 2.5mg of xarelto and increase if she tolerates. Qualifiers: Encounter type: initial encounter Qualified Code(s): S72.002A - Fracture of unspecified part of neck of left femur, initial encounter for closed fracture (2) Left radial fracture Current Visit: Yes Status: Acute Plan: will await Dr. Madrid input 05/24 2 pins placed in her arm. Qualifiers: Encounter type: initial encounter Fracture type: closed Fracture alignment: nondisplaced (3) Acute on chronic renal failure Onset Date: 04/13/18 Current Visit: No Status: Acute Plan: Will continue mild hydration. Will follow the creatine. If necessary will consider a renal consult 05/31 will give 12 hours of fluids Qualifiers: Chronic kidney disease stage: stage 3 (moderate) (4) COPD (chronic obstructive pulmonary disease) Onset Date: 08/12/15 Current Visit: No Status: Chronic Plan: mild shortness of breath this morning. She has not been getting her home trilegy. She states that she had a bad night. Is a bit confused. Understandable for an 89 year who is tired. Will restart the trilegy. get her a levalbuterol treatment. Qualifiers: COPD type: COPD with acute exacerbation Qualified Code(s): J44.1 - Chronic obstructive pulmonary disease with (acute) exacerbation (5) Diabetes Onset Date: 12/18/15 Current Visit: No Status: Acute Plan: Will cover the patient with a sliding scale for now. Restart her home meds after surgery. Qualifiers: Diabetes mellitus type: type 2 Diabetes mellitus residential insulin use: with residential use Diabetes mellitus complication status: without complication Qualified Code(s): E11.9 - Type 2 diabetes mellitus without complications; Z79.4 - long-term (current) use of insulin (6) CHF (congestive heart failure) Onset Date: 09/30/17 Current Visit: No Status: Chronic Plan: Patient is not fluid overloaded. Will d/c the lasix. Continue metoprolol or enteresto. She has been having sbp in the 90's. This seems a good bp for her. No reason to hold the entresto and lopressor. Qualifiers: Heart failure type: combined systolic and diastolic Heart failure chronicity: acute on chronic Qualified Code(s): I50.43 - Acute on chronic combined systolic (congestive) and diastolic (congestive) heart failure (7) Acute hyperkalemia Current Visit: Yes Status: Resolved Plan: was given kayexalate yesterday. back in the normal range Will add some fluids (8) Discharge planning issues Current Visit: Yes Status: Acute Plan: will consult Dr. Carranza. Have discussed her pain, immobility and pain medications as a reason for confusion. The daughter seemed to accept that at the time. However it seems she had second thoughts Discharge Plan: LTAC Plan to discharge in: 24 Hours - Code Status/Comfort Care Code Status Assessed: No Physician Review: Patient Assessed, Agree with Above Assessment and Plan Critical Care: No Time Spent Managing Pts Care (In Minutes): 20
[2020-06-03] MEDS: SERTRALINE HCL 50 MG TAB PO SCH (20:56)
[2020-06-03 22:14] VITALS: O2SAT 98
--- NOTE | 2020-06-04 00:28 | CON ---
Date of Consultation: 06/03/2020 Reason For Consultation: Called by Dr. Robles because of the persistent confusion. The family actual ly wanted a consult as well. History Of Present Illness: Ms. 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 She had surgery by Dr. Marin on the May 24 an d had a more prolonged recovery with confusion and sundowning. The patient's and daughter in the room reported that prior to her fall, she was interactive, did not have episodes of sundowning, although had a little bit of mild cognitive issues, was more alert and oriented. They have noted deborah t since a procedure now 10 days ago, she is slowly improving her cognitive functioning, but still has some sundowning. Her thought this morning she was mostly back to herself, but then in the a fternoon, she became somewhat more confused. 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 There is m oderate global diffuse atrophy. Laboratory Studies: WBC slightly elevated to 12.1, that was on the and today is 20th with veronique l differential. Her hemoglobin was 8.8 on the . Her INR 1.02 and chemistries showed a glucose r anging from 142 to 212. Her last electrolyte panel showed renal insufficiency with a creatinine of 1 .83, alkaline phosphatase elevated at 133, AST elevated to 46. Her urinalysis on the was done an d found to be negative and not repeated. It should be noted that her son showed a picture of the rig ht heel. This appeared to be a stage 1-2 decubital ulcer. She actually has right heel offloaded. Past Medical History: As indicated includes diabetes mellitus, chronic obstructive pulmonary disease , lung cancer, congestive heart failure, hypertension, dyslipidemia, abdominal aortic aneurysm, repor ortega cardiomyopathy. Past Surgical History: Cataract surgery in the right eye, pacemaker in heart and triple bypass surge ry, cholecystectomy, appendectomy, bladder suspension. Family History: Positive for father with diabetes, asthma, tuberculosis, pneumonia, and mother with heart disease, stroke and pneumonia. Allergies: CODEINE, PENICILLIN, CIPROFLOXACIN, IODINE, MEPERIDINE, METFORMIN, STATIN. Medications: Albuterol nebulizer 3 times daily. Amiodarone 100 mg daily. Lasix 20 mg daily. Insul in lispro 12 units at bedtime and 34 units daily. [place]-3 Krill oil 1000 mg daily. Metformin 25 mg twice daily. Ondansetron 4 mg daily. Zoloft 75 mg daily. CoQ10 one capsule daily. Ocuvite daily. Ursodiol 1 cap twice daily. Lisinopril 5 mg daily. Prednisone 5 mg daily. Gabapentin 100 mg 3 alina es a day, levothyroxine 25 mcg daily. Review of Systems: Not reliable at this point. Social History: The patient has no alcohol, tobacco, or IV drug use history. Lives at home with [facility]. Physical Examination: Vital Signs: Blood pressure is 132-150/63, pulse of 79, respiratory rate 16, temperature 97.7, oxyge n saturation 98%. Weight 153 pounds, height 5 feet 4 inches, BMI 26.3. General: Ms. Whitlock is resting in bed. She is eating dinner. She is in no acute distress. HEENT: She is normocephalic, atraumatic. Sclerae anicteric. Extremities: She has bandage to the right upper extremity. Her heels are offloaded and surgical sit e is intact, the right lower extremity. She has no other areas of trauma. Abdomen: Air movement is good bilaterally and sound in the abdomen is normal. Neurological: She is alert and oriented to person, hospital, level of the floor, the year, and the d ay of the week, and follows all commands appropriately. She was able to recall 2 words after 5 minut es when given 3 words. She could not spell the word world backwards. She had difficulty concentrati ng. She did name objects appropriately that glasses, pen, and watch. In terms of her motor examinat ion in the upper extremities, there are no focal deficits. She does have pain related weakness in th e right upper and lower extremities, and as indicated, she does have in the right heel some breakdown stage on the heel that is a decubital ulcer. Also, there is one on the coccygeal area. Otherwise, her neurological examination shows no focal deficits. Assessment: Ms. Whitlock is an 89-year-old patient with a more prolonged recovery following surgery, likely due to a combination of factors including some mild cognitive impairment with superimposed ane sthesia effect, pain medication effect, being in the hospital for now around 2 weeks psych osis with some delirium and possibility of infection. Plan: 1.Urinary analysis. 2.We will have Wound Care look at the heel on the right and that the decubital ulcer in the sacral a mary. 3.The patient will need to begin more aggressive physical therapy to recover strength since she is a bout 2 weeks out and will be likely to significantly debilitated. The patient is able to according t o the family sit at the side of the bed and did do some [id number] but no ambulation yet. 4.This was discussed with the patient's daughter and son who were in the room and told that she woul d have a more prolonged recovery. She is actually going to a [facility] facility where that the rapy can begin. There should be aggressive hydration given her renal insufficiency and followup her liver function studies which showed slightly elevated and those were also contributing factors. 5.The patient may follow up in Dr. Carranza's office and may consider starting Namenda or Aricept at that time in 1 month. NOHEMY/KAYLEY Voice ID: [id number] Report ID: [id number]
[2020-06-04] MEDS: LEVOTHYROXINE SOD 0.025 MG TAB PO SCH (06:24)
[2020-06-04] MEDS: INSULIN -REGULAR HUMAN 50 UNIT/0.5 ML ML SQ SCH ×2 (07:30→12:24)
[2020-06-04] MEDS: COENZYME Q10- 200 MG CAP PO SCH (08:26)
[2020-06-04] MEDS: VITAMIN D 5,000 UNIT CAP PO SCH (08:27)
[2020-06-04] MEDS: OCUVITE (VIT A,C & E/LUTEIN/MINERAL) TABLET PO SCH (08:27)
[2020-06-04] MEDS: GABAPENTIN 100 MG CAP PO SCH (08:30)
[2020-06-04] MEDS: DOCUSATE NA 100 MG CAP PO SCH (08:30)
[2020-06-04] MEDS: RIVAROXABAN 10 MG TABLET PO SCH (08:30)
[2020-06-04] MEDS: GLUCERNA SHAKE 237 ML CAN PO SCH (08:33)
[2020-06-04] MEDS: PANTOPRAZOLE 40MG TABLET PO SCH (08:33)
[2020-06-04] MEDS: SACUBITRIL/VALSARTAN 24/26 MG TAB PO SCH (08:33)
--- NOTE | 2020-06-04 09:05 | P.DS ---
Admission Date: 05/24/20 Discharge Date: 06/04/20 Primary Care Provider: Annia Romano Disposition: TRANSFER TO INPATIENT REHAB Discharge Condition: GOOD Reason for Admission: hip fracture - Problems (1) Closed left hip fracture Current Visit: Yes Status: Acute Qualifiers: Encounter type: initial encounter Qualified Code(s): S72.002A - Fracture of unspecified part of neck of left femur, initial encounter for closed fracture (2) Left radial fracture Current Visit: Yes Status: Acute Qualifiers: Encounter type: initial encounter Fracture type: closed Fracture alignment: nondisplaced (3) Acute on chronic renal failure Onset Date: 04/13/18 Current Visit: No Status: Acute Qualifiers: Chronic kidney disease stage: stage 3 (moderate) (4) COPD (chronic obstructive pulmonary disease) Onset Date: 08/12/15 Current Visit: No Status: Chronic Qualifiers: COPD type: COPD with acute exacerbation Qualified Code(s): J44.1 - Chronic obstructive pulmonary disease with (acute) exacerbation (5) Diabetes Onset Date: 12/18/15 Current Visit: No Status: Acute Qualifiers: Diabetes mellitus type: type 2 Diabetes mellitus chcf insulin use: with chcf use Diabetes mellitus complication status: without complication Qualified Code(s): E11.9 - Type 2 diabetes mellitus without complications; Z79.4 - longterm (current) use of insulin (6) CHF (congestive heart failure) Onset Date: 09/30/17 Current Visit: No Status: Chronic Qualifiers: Heart failure type: combined systolic and diastolic Heart failure chronicity: acute on chronic Qualified Code(s): I50.43 - Acute on chronic combined systolic (congestive) and diastolic (congestive) heart failure (7) Acute hyperkalemia Current Visit: Yes Status: Resolved (8) Discharge planning issues Current Visit: Yes Status: Acute Brief History of Present Illness: Patient of Vinay Juan Antonio who I have had the pleasure of taking care of in the past. She has a history of dm2, copd, htn. Unfortunately she fell yesterday. The pateint was in pain and came to the ER. She had a fracture of the left hip and left radius. Her creatine was also elevated. She normally has a baseline of 1- 1.1 She has recently started a work up at the local foot doctor. Was not able to tolerate a travis. So was sent for an ultrasound. Which was inconclusive. Hospital Course: Patient was admitted for a fall and hip and arm fracture. The patient was seen by Dr. Perez and had a repair. She was doing well in the hospital However she did have some waxing and wanning of consiousness. She have difficulty with pain. Weaning her medications was difficult. The patient family was quite difficult and were very aggressive towards the staff. Refusing to do paperwork till a neurologist was consulted. Dr. Carranza saw the patient had an EEG and ct of the head. No stroke was seen. I have spoken with him this morning. He feels that the patient may have some underlying cognitive impairment. Which is reasonable in a 89 year old. This would be excerbated by pain, immobility and pain medications. I have explained this several times to several family mem bers. Vital Signs/Physical Exam: Temp Pulse Resp BP Pulse Ox 97.2 F 77 16 117/51 L 96 06/04/20 04:00 06/04/20 04:00 06/04/20 04:00 06/04/20 04:00 06/04/20 04:00 General: Alert, In no apparent distress HEENT: Atraumatic, PERRLA, EOMI Neck: Supple, JVD not distended Respiratory: Clear to auscultation bilaterally, Normal air movement Cardiovascular: Regular rate/rhythm, Normal S1 S2 Gastrointestinal: Normal bowel sounds, No tenderness Musculoskeletal: No tenderness Integumentary: No rashes Neurological: Normal speech, Normal tone, Normal affect Lymphatics: No axilla or inguinal lymphadenopathy Laboratory Data at Discharge: WBC 12.10 K/uL (4.3-10.9) H 05/26/20 08:35 Hgb 8.8 g/dL (12.0-15.0) L 05/26/20 08:35 Hct 27.0 % (36.0-45.0) L 05/26/20 08:35 Plt Count 100 K/uL (152-406) L D 05/26/20 08:35 PT 11.7 SECONDS (9.5-12.5) 05/23/20 16:48 INR 1.02 05/23/20 16:48 Sodium 135 mmol/L (136-145) L 05/31/20 06:24 Potassium 4.4 mmol/L (3.5-5.1) 05/31/20 06:24 BUN 55 mg/dL (7-18) H 05/31/20 06:24 Creatinine 1.85 mg/dL (0.55-1.3) H 05/31/20 06:24 Glucose 242 mg/dL (74-106) H 05/31/20 06:24 Magnesium 2.4 mg/dL (1.8-2.4) 05/23/20 05:15 Total Bilirubin 0.8 mg/dL (0.2-1.0) 05/31/20 06:24 AST 46 U/L (15-37) H 05/31/20 06:24 ALT 17 U/L (12-78) 05/31/20 06:24 Alkaline Phosphatase 133 U/L (45-117) H D 05/31/20 06:24 Troponin I Cancelled 05/23/20 15:09 Home Medications: Albuterol Sulfate [Proair Hfa] 1 inh IN TID PRN 12/08/18 Amiodarone HCl 100 mg PO SEECOM 12/08/18 Furosemide [Lasix*] 20 mg PO DAILY 12/08/18 Insulin Lispro [Humalog] 10 units SQ BEDTIME 12/08/18 Insulin Lispro [Humalog] 30 units SQ DAILY 12/08/18 Krill/Om-3/Dha/Epa/Phospho/Ast [Krill Oil 1,000 mg Softgel] 1 cap PO DAILY 12/08/18 Metoprolol Tartrate 25 mg PO BID 12/08/18 Ondansetron [Zuplenz] 4 mg PO DAILY PRN 12/08/18 Sertraline [Zoloft*] 75 mg PO DAILY 12/08/18 Ubidecarenone [Co Q-10] 1 cap PO DAILY 12/08/18 Vit A,C & E/Lutein/Minerals [Ocuvite Tablet] 1 tab PO DAILY 12/08/18 lisinopriL [Lisinopril] 5 mg PO DAILY 12/08/18 predniSONE [Prednisone*] 5 mg PO DAILY 12/08/18 Fluticasone/Umeclidin/Vilanter [Trelegy Ellipta 100-62.5-25] 1 puff 05/23/20 Gabapentin 100 mg PO BID 05/23/20 Levothyroxine Sodium [Levothyroxine] 25 mcg PO DAILY 05/23/20 Cholecalciferol (Vitamin D3) [Vitamin D 5,000 IU Cap*] 1 cap PO DAILY 05/27/20 Hydrocodone 7.5/APAP 325 [[place] 7.5/325 mg*] 1 tab PO Q6H PRN tab 06/04/20 Rivaroxaban [Xarelto*] 10 mg PO DAILY 30 Days #30 tablet 06/04/20 New Medications: Rivaroxaban [Xarelto*] 10 mg PO DAILY 30 Days #30 tablet Diet: Regular Activity: Ad david Physician Review: Patient Assessed, Agree with Above Assessment and Plan Time spent managing pt's care (in minutes): 30
[2020-06-04] MEDS: METOPROLOL TAR 25 MG TAB PO SCH (09:44)
--- NOTE | 2020-06-04 10:45 | EEG ---
CHART: [id number] TEST ID#: [id number] DATE OF STUDY: 06/03/2020 THE EEG WAS RECORDED PORTABLE IN THE PATIENT'S ROOM ON A 17 CHANNEL MACHINE. ELECTRODES WERE APPLIED IN THE USUAL MANNER USING THE INTERNATIONAL 10-20 SYSTEM. THE WAKING BACKGROUND RHYTHM IN THIS RECORD CONSISTS OF FAIRLY WELL DEVELOPED AND FAIRLY WELL ORGANIZED WAVES OF 8.5-9 HZ., WHICH ATTENUATE NORMALLY WITH EYE OPENING. LOW-VOLTAGE 18-22 HZ ACTIVITY MIXED WITH OCCASIONAL MODERATE VOLTAGE 1.5-3 HZ ACTIVITY IS EXPRESSED IN THE FRONTAL REGIONS. THERE ARE NO FOCAL OR LATERALIZING FEATURES. NO EPILEPTIFORM ACTIVITY APPEARS. SLEEP OCCURRED NATURALLY. IN ADDITION NORMAL SLEEP PATTERNS ARE PRESENT. HYPERVENTILATION WAS NOT PERFORMED. PHOTIC STIMULATION PRODUCED FAIR DRIVING BILATERALLY. IMPRESSION: THIS IS A MILDLY ABNORMAL EEG DUE TO A MILDLY SLOW BACKGROUND. THIS IS A NON-SPECIFIC FINDING INDICATING THE PRESENCE OF A MILD DIFFUSE DISTURBANCE IN CEREBRAL FUNCTION.
[2020-06-04 14:27] VITALS: BP 130/58; TEMP 98
== END 2020-06-04 14:38 | DRG 521 ==
LOC: ER 04:13 → ERHOLD 07:11 → 2ND 14:43 → OBSVTOIN 05-24 09:42 → ERHOLD 05-24 11:15 → 2ND 05-25 06:17
PROVIDERS: ADMIT Internal Medicine; ATTEND Internal Medicine
PROC: 0SRS0JZ Replacement of Left Hip Joint, Femoral Surface with Synthetic Substitute, Open Approach (ICD-10-PCS; principal; 2020-05-24 08:00)
PROC: 0PSJ34Z Reposition Left Radius with Internal Fixation Device, Percutaneous Approach (ICD-10-PCS; 2020-05-24 08:00)
DX: S72.002A Fracture of unspecified part of neck of left femur, initial encounter for closed fracture (principal); I50.43 Acute on chronic combined systolic (congestive) and diastolic (congestive) heart failure; S52.502A Unspecified fracture of the lower end of left radius, initial encounter for closed fracture; N17.9 Acute kidney failure, unspecified; J44.1 Chronic obstructive pulmonary disease with (acute) exacerbation; I13.0 Hypertensive heart and chronic kidney disease with heart failure and stage 1 through stage 4 chronic kidney disease, or unspecified chronic kidney disease; F05 Delirium due to known physiological condition; N18.30 Chronic kidney disease, stage 3 unspecified; E11.22 Type 2 diabetes mellitus with diabetic chronic kidney disease; E87.5 Hyperkalemia; E78.5 Hyperlipidemia, unspecified; L89.159 Pressure ulcer of sacral region, unspecified stage; I25.10 Atherosclerotic heart disease of native coronary artery without angina pectoris; W18.30XA Fall on same level, unspecified, initial encounter; Z91.041 Radiographic dye allergy status; Z88.5 Allergy status to narcotic agent; Z88.0 Allergy status to penicillin; Z88.8 Allergy status to other drugs, medicaments and biological substances; Z91.048 Other nonmedicinal substance allergy status; Z79.4 Long term (current) use of insulin; Z79.52 Long term (current) use of systemic steroids; Z90.49 Acquired absence of other specified parts of digestive tract; Z85.118 Personal history of other malignant neoplasm of bronchus and lung; Z79.890 Hormone replacement therapy; Z79.82 Long term (current) use of aspirin; Z79.899 Other long term (current) drug therapy; Z95.0 Presence of cardiac pacemaker; Z79.01 Long term (current) use of anticoagulants; Z20.822 Contact with and (suspected) exposure to COVID-19
CPT/HCPCS: 36415; 51702; 70450; 71045; 72125; 72170; 74176; 80048; 80053; 80076; 81003; 82947; 83735; 83880; 84132; 84443; 84484; 85025; 85610; 86850; 86900; 86901; 87077; 87086; 87088; 87186; 88305; 88311; 93005; 94640; 95816; 96374; 96375; 97110; 97112; 97116; 97161; 97530; 99285; G0378; J0690; J0696; J1100; J1170; J1650; J1940; J2250; J2405; J2710; J2930; J3010; J7030; J7050; J7799; P9045; U0003